=== PATIENT | female | born 1995 | race Caucasian/White ===

== ENCOUNTER 2023-02-09 09:37 | Outpatient (OUT) | payer OTHER, SELFPAY ==
[2023-02-09 11:34] LABS: Basophils Percent Auto 0.4 % (0.2-2.0); Eosinophils Percent Auto 0.4 % (0.9-7.0); Hemoglobin 11.4 g/dL (12.0-16.0); Immature Granulocytes Abs Auto 0.06 10^3/uL (0.00-0.03); Immature Granulocytes Pct Auto 0.6 % (0.0-0.5); Lymphocytes Absolute Auto 1.9 10^3/uL (1.2-3.8); Lymphocytes Percent Auto 18.9 % (20.5-60.0); Mean Corpuscular HGB Conc 33.5 g/dL (29.9-35.2); Mean Corpuscular Hemoglobin 31.2 pg (26.7-34.0); Mean Corpuscular Volume 93.2 fL (81.0-99.0); Mean Platelet Volume 11.2 fL (9.5-13.5); Monocytes Absolute Auto 0.4 10^3/uL (0.3-0.8); Monocytes Percent Auto 4.4 % (1.7-12.0); Neutrophils Absolute Auto 7.6 10^3/uL (1.4-6.5); Neutrophils Percent Auto 75.3 % (43.0-75.0); Platelet Count 243 10^3/uL (150-450); Red Blood Count 3.65 10^6/uL (4.20-5.40); Red Cell Distribution Width 12.8 % (11.0-15.0); White Blood Count 10.1 10^3/uL (4.0-11.0)
[2023-02-09 12:06] LABS: Glucose 1 Hour 127 mg/dL
[2023-02-09 12:25] LABS: Thyroid Stimulating Hormone 1.059 uIU/mL (0.358-3.740)
[2023-02-09 13:12] LABS: Estimated Average Glucose 88 mg/dL; Glycohemoglobin A1C 4.7 % (4.5-6.2)
[2023-02-10 05:12] LABS: HCV Ab Non Reactive (Non Reactive); HIV Ab/p24 Ag Screen Non Reactive (Non Reactive); Rubella Antibodies, IgG 2.06 index (Immune >0.99)
[2023-02-10 06:14] LABS: HBsAg Screen Negative (Negative)
[2023-02-10 11:23] LABS: Rapid Plasma Reagin, Quant Non Reactive (NonRea<1:1)
== END 2023-02-09 09:38 | disposition home or self-care (01) ==
LOC: LAB 09:43
PROVIDERS: Visit Provider Obstetrics & Gynecology
DX: Z34.92 Encounter for supervision of normal pregnancy, unspecified, second trimester (principal)
CPT/HCPCS: 36415; 82950; 83036; 84443; 85025; 86592; 86706; 86762; 86803; 86850; 86900; 86901; 87086; 87150; 87389

== ENCOUNTER 2023-02-18 11:33 | Outpatient (OUT) | payer OTHER, SELFPAY ==
--- NOTE | 2023-02-18 11:40 | US_ITS ---
[address] [address] Patient Name: CARINA CANALES MRN: [id number] date: 1995 Sex: F Assigned Patient Location: US Current Patient Location: Accession/Order Number: [id number] Exam Date: 02/18/2023 11:50 Report Date: 02/18/2023 19:16 At the request of: DEJAN LARSON Procedure: US OB anatomy EXAMINATION: US OB anatomy HISTORY: Second trimester COMPARISON: No relevant comparison available. TECHNIQUE: Transabdominal sonographic examination was performed for obstetrical and evaluation. FINDINGS: Number: 1 Heart Rate: 143.6 bpm H.B. /min Amniotic Fluid Volume: Subjectively normal Placental Location: ANTERIOR with lower margin 9.4 cm from os. Cervix Length: 3.1 cm; closed. ANATOMY: Normal Structures -cerebellum, choroid plexus, cisterna magna, lateral cerebral ventricles, orbits, midline falx, hard palate, four-chamber heart, RVOT, LVOT, stomach, kidneys, bladder, umbilical cord insertion into abdomen, three-vessel cord, cervical spine, thoracic spine, lumbar spine, sacral spine, right upper extremity, left upper extremity, right lower extremity, left lower extremity. SUBOPTIMALLY SEEN: Spine ABNORMALITIES: None BIOMETRY: BPD: 7.4 cm 29 weeks 6 days HC: 27.0 cm 29 weeks 4 days AC: 24.9 cm 29 weeks 1 days FL: 5.2 cm 27 weeks 4 days EFW:1268.7 grams; 53% FL/AC: 20.8 FL/BPD: 69.7 HC/AC: 1.1 GESTATIONAL AGE: Age by EDC: 28 weeks 2 days QUIQUE by EDC: 05/11/2023 Age by current US: 29 weeks 0 days QUIQUE by current US: 05/06/2023 US/US OB anatomy IMPRESSION: 1. Single live intrauterine with growth detailed above. 2. Slightly limited evaluation of the spine due to position. No appreciable abnormality. Electronically authenticated by: SHREYA CHILDS Date: 02/18/2023 19:16
--- NOTE | 2023-02-18 13:48 | PC.NURSE ---
1205 Called to US room with patient c/o feeling dizzy, clammy, and lightheaded. Pt states that when she arrived she was not feeling this way but it started with the beginning of the ultrasound and laying on her back in semi fowlers position. BP 82/56. Encouraged pt to turn on her side and HOB is lowered flat. 1211 Pt states that she is feeling better in this position. BP 100/58. Pt states that this is more like her normal BP. Pt denies being dehydrated in any way or vomiting. End SGardocky to continue with US in this position and contact me at the end of the us. 1241 Pt sitting on side of bed. Denies feeling lightheaded or dizzy. BP 103/67. Told pt that I will contact Dr Voss's ofc and make them aware. Instructed pt that if she feels dizzy to lay down with head flat or below her body and this should help with the hypotension. Enc her to follow up with Dr Voss for any furthur instructions. 1311 Called office and spoke with Mary about the above situation.
== END 2023-02-18 11:34 | disposition home or self-care (01) ==
LOC: US 11:33
PROVIDERS: Visit Provider Obstetrics & Gynecology
DX: Z34.92 Encounter for supervision of normal pregnancy, unspecified, second trimester (principal)
CPT/HCPCS: 76805

== ENCOUNTER 2023-03-19 15:02 | Outpatient (OUT) | payer OTHER, SELFPAY ==
--- NOTE | 2023-03-19 15:19 | US_ITS ---
[address] [address] Patient Name: CARINA CANALES MRN: [id number] date: 1995 Sex: F Assigned Patient Location: US Current Patient Location: Accession/Order Number: [id number] Exam Date: 03/19/2023 15:25 Report Date: 03/20/2023 09:08 At the request of: DEJAN LARSON Procedure: US OB incomplete anatomy EXAM: US OB incomplete anatomy HISTORY: ENCOUNTER FOLLOW UP ANATOMY Z36.2 COMPARISON: 02/18/2023 TECHNIQUE: Transabdominal images FINDINGS: position: Cephalic presentation, longitudinal lie Heart rate: 141 bpm Normal anatomy: Normal observed spine Clinical age: 32 weeks 3 days Clinical QUIQUE: 05/11/2023 US/US OB incomplete anatomy IMPRESSION: Normal spine Electronically authenticated by: SRINIVASAN WAHL Date: 03/20/2023 09:08
== END 2023-03-19 15:03 | disposition home or self-care (01) ==
PROVIDERS: Visit Provider Obstetrics & Gynecology
DX: Z36.2 Encounter for other antenatal screening follow-up (principal)
CPT/HCPCS: 76815

== ENCOUNTER 2023-04-10 14:08 | Outpatient (OUT) | payer OTHER, SELFPAY ==
--- NOTE | 2023-04-10 14:12 | US_ITS ---
The [address] [address] Patient Name: CARINA CANALES MRN: [id number] date: 1995 Sex: F Assigned Patient Location: US Current Patient Location: Accession/Order Number: [id number] Exam Date: 04/10/2023 14:15 Report Date: 04/11/2023 02:03 At the request of: DEJAN LARSON Procedure: US OB growth EXAM: US OB growth HISTORY: size inconsistent with dates O26.849 EXAMINATION: US OB growth HISTORY: size inconsistent with dates O26.849 COMPARISON: Ultrasound OB anatomy 02/18/2023 FINDINGS: Heart Rate: 127.4 bpm Number: 1.0 Position: CEPHALIC Amniotic Fluid Volume: 14.4 cm Maximum Vertical Pocket: 3.9 cm BIOMETRY: BPD: 9.0 cm cm; 36 weeks 2 days HC: 31.6 cmcm; 35 weeks 4 days AC: 31.4 cm cm; 35 weeks 2 days FL: 6.9 cm cm; 35 weeks 2 days EFW: 2676.3 grams; 45% FL/AC: 21.9 FL/BPD: 76.7 HC/AC: 1.0 GESTATIONAL AGE: Age by EDC: 35 weeks 4 days QUIQUE by EDC: 05/11/2023 Age by US: 35 weeks 4 days QUIQUE by US: 05/11/2023 US/US OB growth IMPRESSION: 1. Single live intrauterine with growth detailed above. COMPARISON: None. TECHNIQUE: FINDINGS: IMPRESSION: Electronically authenticated by: SHREYA CHILDS Date: 04/11/2023 02:03
== END 2023-04-10 14:09 | disposition home or self-care (01) ==
LOC: US 14:08
PROVIDERS: Visit Provider Obstetrics & Gynecology
DX: O26.843 Uterine size-date discrepancy, third trimester (principal); Z3A.35 35 weeks gestation of pregnancy
CPT/HCPCS: 76816

== ENCOUNTER 2023-04-19 22:18 | Outpatient (REF) | payer OTHER, SELFPAY | END 2023-04-19 22:19 | disposition home or self-care (01) | LOC: LAB 22:18 | PROVIDERS: Visit Provider Physician Assistant | DX: Z34.93 Encounter for supervision of normal pregnancy, unspecified, third trimester (principal) | CPT/HCPCS: 87081; 87150 ==

== ENCOUNTER 2023-05-03 11:30 | Outpatient (OUT) | payer OTHER, SELFPAY ==
--- NOTE | 2023-05-03 | US_ITS ---
[address] [address] Patient Name: CARINA CANALES MRN: [id number] date: 1995 Sex: F Assigned Patient Location: [facility] Current Patient Location: Accession/Order Number: [id number] Exam Date: 05/03/2023 11:30 Report Date: 05/03/2023 16:35 At the request of: DEJAN LARSON Procedure: US OB BPP w non-stress EXAMINATION: US OB BPP w non-stress HISTORY: DECREASED MOVEMENTS COMPARISON: No relevant comparison available. TECHNIQUE: Ultrasound biophysical profile was performed in the radiology department. FINDINGS: BREATHING MOVEMENTS: 2.0 GROSS BODY MOVEMENTS: 2.0 TONE: 2.0 QUALITATIVE AMNIOTIC FLUID VOLUME: 2.0 PRESENTATION: CEPHALIC HEART RATE: 137.8 bpm H.B./min AMNIOTIC FLUID VOLUME: 12.6 cm cm GESTATIONAL AGE: 38 weeks 6 days CONCLUSION: Total biophysical profile score: 8.0 Electronically authenticated by: SRINIVASAN WAHL Date: 05/03/2023 16:35
[2023-05-03 11:58] VITALS: BP 121/71; PULSE 80
== END 2023-05-03 12:31 | disposition home or self-care (01) ==
LOC: FBCO 11:32 → FBC 11:32
PROVIDERS: PCP Family Medicine; Visit Provider Obstetrics & Gynecology
DX: O36.8130 Decreased fetal movements, third trimester, not applicable or unspecified (principal); Z3A.38 38 weeks gestation of pregnancy
CPT/HCPCS: 76818

== ENCOUNTER 2023-05-16 18:04 | Inpatient (IN) | payer OTHER, SELFPAY ==
[2023-05-16] VITALS (31 sets, daily range): BP systolic 91–139; BP diastolic 55–84; PULSE 76–111; RESP 18; TEMP 36.2–36.7
[2023-05-16] MEDS: 0.9 % SODIUM CHLORIDE 1,000 ML 125 ML IV ×2 (19:10→22:00)
[2023-05-16] MEDS: AMPICILLIN SODIUM 2,000 MG in 0.9 % SODIUM CHLORIDE 100 ML 200 MG IV (19:11)
[2023-05-16 19:12] LABS: Hematocrit 35.7 % (36.0-48.0); Hemoglobin 11.6 g/dL (12.0-16.0); Mean Corpuscular HGB Conc 32.5 g/dL (29.9-35.2); Mean Corpuscular Hemoglobin 27.4 pg (26.7-34.0); Mean Corpuscular Volume 84.2 fL (81.0-99.0); Mean Platelet Volume 12.7 fL (9.5-13.5); Platelet Count 311 10^3/uL (150-450); Red Blood Count 4.24 10^6/uL (4.20-5.40); Red Cell Distribution Width 15.9 % (11.0-15.0); White Blood Count 17.4 10^3/uL (4.0-11.0)
[2023-05-16 19:23] LABS: Amphetamine Screen Urine NEGATIVE (NEGATIVE); Barbiturates Screen Urine NEGATIVE (NEGATIVE); Benzodiazepines Screen Urine NEGATIVE (NEGATIVE); Buprenorphine Screen Urine NEGATIVE (NEGATIVE); Cannabinoid Screen Urine NEGATIVE (NEGATIVE); Cocaine Screen Urine NEGATIVE (NEGATIVE); Methadone Screen Urine NEGATIVE (NEGATIVE); Methamphetamines Screen Urine NEGATIVE (NEGATIVE); Opiate Screen Urine NEGATIVE (NEGATIVE); Oxycodone Screen Urine NEGATIVE (NEGATIVE); Phencyclidine Screen Urine NEGATIVE (NEGATIVE); Tricyclic Antidepressant Urine NEGATIVE (NEGATIVE)
[2023-05-16] MEDS: ROPIVACAINE HCL/PF 400 MG/200 ML PREMIX 6 MG EPIDURAL (22:00)
[2023-05-16] MEDS: LIDOCAINE HCL 2% PF 100 MG/5 ML VIAL INJ (22:12)
[2023-05-16] MEDS: FENTANYL CITRATE/PF 100 MCG/2 ML VIAL EPIDURAL ×2 (22:13→22:14)
[2023-05-16] MEDS: AMPICILLIN SODIUM 1,000 MG in 0.9 % SODIUM CHLORIDE 50 ML 100 MG IV (23:34)
[2023-05-17] VITALS (37 sets, daily range): BP systolic 101–142; BP diastolic 54–83; PULSE 82–104; RESP 20; TEMP 36.9
[2023-05-17] MEDS: AMPICILLIN SODIUM 1,000 MG in 0.9 % SODIUM CHLORIDE 50 ML 100 MG IV (03:51)
[2023-05-17] MEDS: 0.9 % SODIUM CHLORIDE 1,000 ML 125 ML IV (04:35)
--- NOTE | 2023-05-17 06:20 | PM.OBPRCVD ---
Procedure Intrapartal events: None Induction method: none Delivery augmentation: rupture of membranes Delivery monitor: external FHT and external uterine Route of delivery: Laceration description: perineal - 1st degree Delivery repair: Vicryl Estimated blood loss (mL): 350 Anesthesia type: unsure-possibly epidural Disposition: floor Delivery date: 05/17/23 Gender: male presentation: vertex Placental delivery description: Spontaneous cord description: 3 Vessels
[2023-05-17] MEDS: IBUPROFEN 600 MG TABLET PO ×2 (08:53→15:52)
--- NOTE | 2023-05-17 10:58 | PC.NURSE ---
0900 Epidural catheter removed without incident, black tip intact. Patient tolerated well
--- NOTE | 2023-05-17 15:07 | PC.NURSE ---
LC into room, pt states feeding is going well He latches well and nurses for 15 -20 min , does nurse both breasts usually. Explained process of milk coming in over next 4 days, trusting the process and frequent feeding is castillo to milk process. Verbalized understanding. Family in room and very supportive. No further questions at this time.
[2023-05-18 00:05] VITALS: BP 100/57; PULSE 98
[2023-05-18 00:08] VITALS: TEMP 36.4
[2023-05-18] MEDS: IBUPROFEN 600 MG TABLET PO ×3 (00:18→20:08)
[2023-05-18 05:53] LABS: Basophils Absolute Auto 0.1 10^3/uL (0.0-0.1); Basophils Percent Auto 0.5 % (0.2-2.0); Eosinophils Absolute Auto 0.1 10^3/uL (0.0-0.7); Eosinophils Percent Auto 0.3 % (0.9-7.0); Hematocrit 27.7 % (36.0-48.0); Hemoglobin 8.7 g/dL (12.0-16.0); Immature Granulocytes Abs Auto 0.18 10^3/uL (0.00-0.03); Immature Granulocytes Pct Auto 1.2 % (0.0-0.5); Lymphocytes Absolute Auto 3.5 10^3/uL (1.2-3.8); Lymphocytes Percent Auto 22.6 % (20.5-60.0); Mean Corpuscular HGB Conc 31.4 g/dL (29.9-35.2); Mean Corpuscular Hemoglobin 26.9 pg (26.7-34.0); Mean Corpuscular Volume 85.8 fL (81.0-99.0); Mean Platelet Volume 11.9 fL (9.5-13.5); Monocytes Absolute Auto 1.4 10^3/uL (0.3-0.8); Neutrophils Absolute Auto 10.2 10^3/uL (1.4-6.5); Neutrophils Percent Auto 66.4 % (43.0-75.0); Platelet Count 246 10^3/uL (150-450); Red Blood Count 3.23 10^6/uL (4.20-5.40); Red Cell Distribution Width 16.2 % (11.0-15.0); White Blood Count 15.4 10^3/uL (4.0-11.0)
--- NOTE | 2023-05-18 08:43 | P.OBPN_ITS ---
OB - PN: Subj Subjective Patient comments: no complaints and pain well controlled [place] status: doing well Exam Constitutional Vital Signs, click to edit/add: Last Vital Signs Temp 97.6 F 05/18/23 00:08 Pulse 98 H 05/18/23 00:05 Resp 20 05/17/23 16:12 BP 100/57 05/18/23 00:05 Documenting provider has reviewed patient's vital signs: yes Common normals: no apparent distress Respiratory Common normals: normal respiratory effort and clear to auscultation bilaterally Cardio Common normals: regular rate and regular rhythm GI Common normals: Normal to inspection, nondistended, normoactive bowel sounds present Extremity Common normals: no clubbing, cyanosis or edema Results Labs Labs: Short CBC 05/18/23 Range/Units 05:39 WBC 15.4 H (4.0-11.0) 10^3/uL Hgb 8.7 L (12.0-16.0) g/dL Hct 27.7 L (36.0-48.0) % Plt Count 246 (150-450) 10^3/uL OB - PN: A/P Plan - Vaginal Delivery day: 1 Plan: routine care Time Spent with Patient Time: Total time spent is greater than 50% in coordination of care (as documented) at patient's floor/unit and/or counseling patient: Total time spent with greater than 50% in coordination of care (as documented) at patient's floor/unit and/or counseling patient: less than 15 minutes
[2023-05-18 09:43] VITALS: BP 108/60; PULSE 82; RESP 16; TEMP 36.4
[2023-05-18] MEDS: DOCUSATE SODIUM 100 MG CAPSULE PO (09:44)
[2023-05-18 18:52] VITALS: BP 113/57; PULSE 78; RESP 16; TEMP 36.3
[2023-05-19 00:24] VITALS: BP 117/69; PULSE 92
[2023-05-19 00:25] VITALS: BP 117/69; PULSE 92; RESP 16; TEMP 36.6
--- NOTE | 2023-05-19 01:09 | PC.NURSE ---
Pt pumps for 10 minutes. A couple drops is given to .
[2023-05-19] MEDS: IBUPROFEN 600 MG TABLET PO ×2 (04:17→09:25)
[2023-05-19 07:55] VITALS: BP 118/61; PULSE 75
[2023-05-19] MEDS: DOCUSATE SODIUM 100 MG CAPSULE PO (07:59)
--- NOTE | 2023-05-19 08:07 | P.OBPN_ITS ---
OB - PN: Subj Subjective Patient comments: no complaints and pain well controlled [place] status: doing well Exam Constitutional Vital Signs, click to edit/add: Last Vital Signs Temp 97.8 F 05/19/23 00:25 Pulse 75 05/19/23 07:55 Resp 16 05/19/23 00:25 BP 118/61 05/19/23 07:55 O2 Del Method Room Air 05/19/23 00:25 Documenting provider has reviewed patient's vital signs: yes Common normals: no apparent distress Respiratory Common normals: normal respiratory effort and clear to auscultation bilaterally Cardio Common normals: regular rate and regular rhythm GI Common normals: Normal to inspection, nondistended, normoactive bowel sounds present Extremity Common normals: no calf tenderness OB - PN: A/P Plan - Vaginal Delivery day: 2 Plan: routine care, discharge home and follow up 6 weeks Time Spent with Patient Time: Total time spent is greater than 50% in coordination of care (as documented) at patient's floor/unit and/or counseling patient: Total time spent with greater than 50% in coordination of care (as documented) at patient's floor/unit and/or counseling patient: less than 15 minutes
--- NOTE | 2023-05-19 12:35 | PC.NURSE ---
1010: Mother tearful upon RN entering room as baby is crying and she is positioning baby to feed again, she states All I've done is feed him and I don't think he is satisfied because all he does is cry-how am I supposed this at home? Patient reassured and offered a plan as baby weight os 9.7% down. Discussed formula syringe fed supplement while baby at breast- baby nursing vigorously and RN does syringe supplement at breast and explains to parents the process. Baby nurses other breast and falls asleep. Discussed anxiety history and depression- r/t depression and s/s of depression and to notify OB physician if symptoms appear. Patient smiling and happy that baby is resting contently after feeding. F/U with scheduled for tomorrow after peds appointment- instructed to call with questions/reassurance- verbalized understanding.
== END 2023-05-19 11:45 | disposition home or self-care (01) | DRG 807 ==
PROVIDERS: Admitting Provider Obstetrics & Gynecology; PCP Family Medicine; Visit Provider Obstetrics & Gynecology
DX: O48.0 Post-term pregnancy (principal); Z37.0 Single live birth; O99.824 Streptococcus B carrier state complicating childbirth; O70.0 First degree perineal laceration during delivery; Z3A.40 40 weeks gestation of pregnancy; Z90.49 Acquired absence of other specified parts of digestive tract; Z82.49 Family history of ischemic heart disease and other diseases of the circulatory system; Z80.9 Family history of malignant neoplasm, unspecified; Z83.49 Family history of other endocrine, nutritional and metabolic diseases
CPT/HCPCS: 36415; 59050; 59410; 80307; 85025; 85027; 86850; 86900; 86901; 96365; 96366; 96375; 96376

== ENCOUNTER 2023-05-20 08:10 | Outpatient (OUT) | payer OTHER, SELFPAY ==
--- NOTE | 2023-05-20 14:24 | PC.NURSE ---
Family arrive with 3 day old son Austin for follow up visit. Mom voices concern over and having enough milk. States milk not in yet, I have no idea how much he is eating, and I really don't want to have to go to formula Discussed thoughts and fears of , education on process of milk production. Breasts full shape, intact nipples, warm to touch no redness or trauma noted. Baby is latching well. Mom has fear of not making any milk No history to support inability to make milk. Discussed with parents I&O for . Neither can identify when had a wet diaper last, one smear of dark green stool yesterday evening when home from hospital. States baby comes to breast every 2 hours and does nurse at both breasts. Baby did have 2 stretches of sleep of 3 hours between feeds. Mom has history of anxiety and depression not treated with meds per her choice. Reviewed loss of 12.4%of weight and I&O for baby. encourages use of supplements for baby until supply comes in and could be short term help for infant weight. Father immediately states Yes, lets do this Mom begins to cry, states I don't want him to have formula hugs mom and offers support and short term use of formula will assist baby. Mom does not want to pump as baby already at the breast every 2 hours Finally willing to supplement with formula while baby at the breast. Prefers to use syringe at the breast only, no tube or bridge feeder (shield and supplement feeder). Does not want to confuse from latching at the breast. supports mom. Instructed to give 20 ml total with each feeding, consider more if frantic and continues to give hunger cues. Parents voice understanding. Plan to return 05/24/2023 for further support. Has number to stay in contact with for questions or concerns. Family leaves ambulatory for office visit with Dr Garcia. Nurse at Dr Garcia's office notified of LC findings and assessment of feeding. Shared feeding plan and when will return for further care. Will inform Dr Garcia of same. Initialized on 05/20/23 14:05 - END OF NOTE
[2023-05-20 14:25] VITALS: BP 114/72; PULSE 100; RESP 18; TEMP 36.3; O2SAT 97
== END 2023-05-20 13:15 | disposition home or self-care (01) ==
LOC: FBCO 08:12
PROVIDERS: PCP Family Medicine; Visit Provider Obstetrics & Gynecology
DX: Z39.2 Encounter for routine postpartum follow-up (principal)

== ENCOUNTER 2024-06-25 14:26 | Outpatient (OUT) | payer OTHER, SELFPAY ==
--- NOTE | 2024-06-25 | XR_ITS ---
The [address] [address] Patient Name: CARINA CANALES MRN: [id number] date: 1995 Sex: F Assigned Patient Location: [facility] Current Patient Location: Accession/Order Number: [id number] Exam Date: 06/25/2024 14:40 Report Date: 06/26/2024 04:51 At the request of: TOÑO CHILDS Procedure: XR wrist SARAHY min 2v EXAMINATION: XR wrist SARAHY min 2v HISTORY: Lump of wrist R22.30 ; tender lump on wrist bilaterally. COMPARISON: No relevant comparison available. FINDINGS: RIGHT FINDINGS: BONES: No significant arthropathy or acute abnormality. Skin surface marker projects over lateral wrist/scaphoid bone. SOFT TISSUES: No visible soft tissue swelling. OTHER: Negative. LEFT FINDINGS: BONES: No significant arthropathy or acute abnormality. Skin surface marker projects over lateral wrist/scaphoid bone. SOFT TISSUES: No visible soft tissue swelling. OTHER: Negative. XR/XR wrist SARAHY min 2v IMPRESSION: RIGHT CONCLUSION: No appreciable bone or soft tissue abnormality. LEFT CONCLUSION: No appreciable bone or soft tissue abnormality. Electronically authenticated by: SHREYA CHILDS Date: 06/26/2024 04:51
== END 2024-06-25 14:27 | disposition home or self-care (01) ==
LOC: RAD 14:27
PROVIDERS: PCP Family Medicine; Visit Provider Family Medicine
DX: R22.30 Localized swelling, mass and lump, unspecified upper limb (principal)
CPT/HCPCS: 73100

== ENCOUNTER 2024-08-12 04:26 | Emergency (ER) | payer OTHER, SELFPAY ==
[2024-08-12 04:29] VITALS: BP 116/76; PULSE 81; TEMP 36.4; O2SAT 97; BMI 24.9
--- OUTSIDE RECORDS SUMMARY | 2024-08-12 04:45 | XMS_ITS | CCD ---
Author Organization [facility] Care Team Providers Care Scale Operator Name Role Phone NONE, XXXX Unavailable Unavailable Hajdari, Astrit H Unavailable Unavailable Hajdari, Astrit H Unavailable Unavailable NONE, XXXX Unavailable Unavailable Samira, Mirza Unavailable Unavailable Samira, Mirza Unavailable Unavailable Kovesdi, Mirza Unavailable Unavailable NONE, XXXX Unavailable Unavailable Juan, Shanna Unavailable Unavailable NONE, XXXX Unavailable Unavailable Kovesjustine, Mirza Unavailable Unavailable NONE, XXXX Unavailable Unavailable ROCCO WEBBER Admitting Unavailable ROCCO WEBBER Attending Unavailable CLARENCE LIVINGSTON Referring Unavailable ROCCO WEBBER Consulting Unavailable DO Juan Cerna Primary Care Provider [phone] DO Juan Cerna Attending Provider NEETU SALAZAR Attending Unavailable HAWA Swartz Emergency Provider [phone] MD Gregorio Garcia Primary Care Provider Juan Swartz Admitting Unavailable Gregorio Garcia Primary Care Unavailable Juan Swartz Attending Unavailable Allergies Allergy Classification Reported Allergen(s) Allergy Type Date of Onset Reaction(s) Facility (1 source) Bee/Wasp/Ant venom; Translations: [Bee Stings] Propensity to adverse reactions (disorder) [facility] Repository (1 source) bee venom protein (honey bee) Drug allergy (disorder) [facility] Repository Medications Current Medications Medication Drug Class(es) Dates Sig (Normalized) Sig (Original) [place] (No Known Home Meds) (1 source) Start: 10-17-2023 [place] (No Known Home Meds) Active October 17, 2023 12:00am penicillin v potassium 500 mg oral tablet (1 source) Start: 10-17-2023 take 500 mg by mouth twice daily Penicillin V Potassium Active 500 MG PO Twice daily October 17, 2023 12:00am Problems Problem Classification Problem Date Documented Date Episodic/Chronic Fever of unknown origin (1 source) Fever, unspecified; Translations: [Fever, unspecified] Onset: 10-17-2023 Episodic Immunizations and screening for infectious disease (4 sources) Contact with and (suspected) exposure to other viral communicable diseases; Translations: [CONTCT EXPS OTH VIRL COMMUNICABL DZ] Onset: 02-26-2020 Episodic Other upper respiratory infections (2 sources) Streptococcal sore throat; Translations: [Streptococcal pharyngitis] Onset: 10-17-2023 10-17-2023 Episodic Residual codes; unclassified (1 source) Pain, unspecified; Translations: [Pain, unspecified] Onset: 10-17-2023 Episodic Results Test Name Value Interpretation Reference Range Facility COVID-19 / Flu A/B / RSV PCR on 10-17-2023 SARS-CoV-2 (COVID-19) RNA MOR+probe Ql (Unsp spec) COVID-19 Cepheid Result Negative for SARS-CoV-2 RNA by RT-PCR Flu A Cepheid Result Negative for Flu A RNA by RT-PCR Flu B Cepheid Result Negative for Flu B RNA by RT-PCR RSV Cepheid Result Negative for RSV RNA by RT-PCR COVID19 Blank Space Reference: Negative COVID19 Blank Space Cepheid Disclaimer The CepDirectworksid Xpert Xpress CoV-2/Flu/RSV Plus has CepDirectworksid Disclaimer not been FDA cleared or approved; this test has Cepheid Disclaimer been authorized by FDA under an EUA for use by Cepheid Disclaimer authorized laboratories; this test has been Cepheid Disclaimer authorized only for the simultaneous qualitative Cepheid Disclaimer detection and differentiation of nucleic acids from Cepheid Disclaimer SARS-CoV-2, influenza A, influenza B, and Cepheid Disclaimer respiratory syncytial virus (RSV), and not for any Cepheid Disclaimer other viruses or pathogens; and this test is only Cepheid Disclaimer authorized for the duration of the declaration that Cepheid Disclaimer circumstances exist justifying the authorization of Cepheid Disclaimer emergency use of in vitro diagnostic tests for Cepheid Disclaimer detection and/or diagnosis of COVID-19 under Cepheid Disclaimer Section 564(b)(1) of the Act, 21 U.S.C. 360bbb- Cepheid Disclaimer 3(b)(1), unless the authorization is terminated or Cepheid Disclaimer revoked sooner. PERFORMED BY: [place] [address] PATHOLOGIST RAILROAD SIGNAL TECHNICIAN ELADIO POWELL M.D. Normal [facility] Comment on above: Performed By: #### C EPHEID NEG, COVID19 FLU RSV, QS #### [address] Cepheid COVID PCR Negativeon 10-17-2023 SARS-CoV-2 (COVID-19) RNA MOR+probe Ql (Unsp spec) Negative Normal Negative [facility] Comment on above: Result Comment: This is a duplicate CepDirectworksid Xpert Xpress CoV-2/Flu/RSV Plus RNA by RT-PCR result to be used for statistical tracking purpose only. PERFORMED BY: [place] [address] PATHOLOGIST RAILROAD SIGNAL TECHNICIAN ELADIO POWELL M.D. Performed By: #### C EPHEID NEG, COVID19 FLU RSV, QS #### [place] [id number] [facility] Quick Strepon 10-17-2023 S. pyogenes Ag IA Ql (Unsp spec) Streptococcus pyogenes Ag [Presence] in Throat by Rapid immunoassay Positive for Group A Strep Antigen Reference range = Negative PERFORMED BY: [address] [place] [address] PATHOLOGIST RAILROAD SIGNAL TECHNICIAN ELADIO POWELL M.D. Normal [facility] Comment on above: Performed By: #### C EPHEID NEG, COVID19 FLU RSV, QS #### [address] Streptococcus pyogenes antig en detectionOrdered By: Juan Swartz on 10-17-2023 S. pyogenes Ag Ql (Unsp spec) [facility] Basophils Auto (Bld) [#/Vol] Ordered By: Juan Cerna on 05-06-2022 Basophils (Bld) [#/Vol] 0.0 10*3/uL 0.0-0.2 [facility] Basophils/100 WBC Auto (Bld) Ordered By: Juan Cerna on 05-06-2022 Basophils/100 WBC (Bld) 0.6 % . [facility] Body fluid albumin measureme nt (mass/volume)Ordered By: Juan Cerna on 05-06-2022 Albumin (Body fld) [Mass/Vol] 4.4 g/dL 3.2-5.5 [facility] Cholesterol [Mass/volume] in Serum or PlasmaOrdered By: Juan Cerna on 05-06-2022 Cholesterol [Mass/Vol] 191 mg/dL 140-200 [facility] Comment on above: Chol less than 200 m g/dl low riskChol 201-239 mg/dl borderline riskChol 240 mg/dl and greater high risk Cholesterol in LDL Calc [Mas s/Vol]Ordered By: Juan Cerna on 05-06-2022 Cholesterol in LDL [Mass/Vol] 103 mg/dL 0-100 [facility] Comment on above: LDL ATP III CLASSIFI CATIONLDL less than 100 mg/dL OptimalLDL 100-129 mg/dL Near or above optimalLDL 130-159 mg/dL Borderline highLDL 160-189 mg/dL HighLDL greater than 189 mg/dL Very high Cholesterol in VLDL Calc [Ma ss/Vol]Ordered By: Juan Cerna on 05-06-2022 Cholesterol in VLDL [Mass/Vol] 7 mg/dL [facility] Creatinine and Glomerular fi ltration rate.predicted panel (S/P/Bld)Ordered By: Juan Cerna on 05-06-2022 Creatinine [Mass/Vol] 0.63 mg/dL 0.44-1.03 [facility] Eosinophils Auto (Bld) [#/Vo l]Ordered By: Juan Cerna on 05-06-2022 Eosinophils (Bld) [#/Vol] 0.1 10*3/uL 0.0-0.45 [facility] Eosinophils/100 WBC Auto (Bl d)Ordered By: Juan Cerna on 05-06-2022 Eosinophils/100 WBC (Bld) 0.7 % . [facility] Erythrocyte distribution wid th Auto (RBC) [Ratio]Ordered By: Juan Cerna on 05-06-2022 Erythrocyte distribution width (RBC) [Ratio] 13.3 % 11.9-15.3 [facility] Estimated glomerular filtrat ion rate (GFR) non- AmericanOrdered By: Juan Cerna on 05-06-2022 GFR/1.73 sq M.predicted among non-blacks MDRD (S/P/Bld) [Vol rate/Area] > 60 mL/Min [facility] Globulin Calc (S) [Mass/Vol] Ordered By: Juan Cerna on 05-06-2022 Globulin (S) [Mass/Vol] 2.6 g/dL [facility] Hematocrit Auto (Bld) [Volum e fraction]Ordered By: Juan Cerna on 05-06-2022 Hematocrit (Bld) [Volume fraction] 42.9 % 34.0-46.4 [facility] Hemoglobin [Mass/volume] in BloodOrdered By: Juan Cerna on 05-06-2022 Hemoglobin (Bld) [Mass/Vol] 13.8 g/dL 11.8-15.4 [facility] Laboratory - Hematology and Cell countsOrdered By: Juan Cerna on 05-06-2022 Nucleated RBC/100 WBC (Bld) [Ratio] 0.1 % 0-0.5 [facility] Leukocytes [#/volume] in Blo od by Automated countOrdered By: Juan Cerna on 05-06-2022 WBC (Bld) [#/Vol] 7.6 10*3/uL 4.5-11.0 [facility] Lymphocytes Auto (Bld) [#/Vo l]Ordered By: Juan Cerna on 05-06-2022 Lymphocytes (Bld) [#/Vol] 2.6 10*3/uL 1.00-4.8 [facility] Lymphocytes/100 WBC Auto (Bl d)Ordered By: Juan Cerna on 05-06-2022 Lymphocytes/100 WBC (Bld) 34.7 % . [facility] MCH Auto (RBC) [Entitic mass ]Ordered By: Juan Cerna on 05-06-2022 MCH (RBC) [Entitic mass] 29.7 pg 24.7-34.3 [facility] MCHC Auto (RBC) [Mass/Vol]Or dered By: Juan Cerna on 05-06-2022 MCHC (RBC) [Mass/Vol] 32.2 g/dL 32.0-35.0 [facility] MCV Auto (RBC) [Entitic vol] Ordered By: Juan Cerna on 05-06-2022 MCV (RBC) [Entitic vol] 92.3 fL 80-100 [facility] Monocytes Auto (Bld) [#/Vol] Ordered By: Juan Cerna on 05-06-2022 Monocytes (Bld) [#/Vol] 0.5 10*3/uL 0.0-0.8 [facility] Monocytes/100 WBC Auto (Bld) Ordered By: Juan Cerna on 05-06-2022 Monocytes/100 WBC (Bld) 6.1 % . [facility] Neutrophils Auto (Bld) [#/Vo l]Ordered By: Juan Cerna on 05-06-2022 Neutrophils (Bld) [#/Vol] 4.4 10*3/uL 1.8-7.7 [facility] Neutrophils/100 WBC Auto (Bl d)Ordered By: Juan Cerna on 05-06-2022 Neutrophils/100 WBC (Bld) 57.9 % . [facility] No Panel InformationOrdered By: Juan Cerna on 05-06-2022 Estimated GFR () > 60 mL/Min [facility] Comment on above: GFR estimated refere nce range: According to KDOQI guidelines, <60 ml/min/1.73m2 is sufficient to diagnose a patient with chronic kidney disease. Pharmacy Creatinine Clearance (Chem N/A [facility] Platelet mean volume Auto (B ld) [Entitic vol]Ordered By: Juan Cerna on 05-06-2022 Platelet mean volume (Bld) [Entitic vol] 9.9 fL 6.3-10.7 [facility] Platelets Auto (Bld) [#/Vol] Ordered By: Juan Cerna on 05-06-2022 Platelets (Bld) [#/Vol] 253 10*3/uL 150-450 [facility] Protein [Mass/volume] in Ser um or PlasmaOrdered By: Juan Cerna on 05-06-2022 Protein [Mass/Vol] 7.0 g/dL 6.1-7.9 [facility] RBC Auto (Bld) [#/Vol]Ordere d By: Juan Cerna on 05-06-2022 RBC (Bld) [#/Vol] 4.65 10*6/uL 3.60-5.00 [facility] Serum or plasma alanine cochran otransferase measurement without P-5'-P (enzymatic activiOrdered By: Juan Cerna on 05-06-2022 ALT No additional P-5'-P [Catalytic activity/Vol] 14 U/L [facility] Serum or plasma albumin/glob ulin mass ratioOrdered By: Juan Cerna on 05-06-2022 Albumin/Globulin [Mass ratio] 1.7 {ratio} [facility] Serum or plasma alkaline jeremy sphatase measurement (enzymatic activity/volume)Ordered By: Juan Cerna on 05-06-2022 ALP [Catalytic activity/Vol] 42 U/L 32-92 [facility] Serum or plasma anion gap de terminationOrdered By: Juan Cerna on 05-06-2022 Anion gap [Moles/Vol] 13.3 mmol/L 6.0-15.0 [facility] Serum or plasma aspartate am inotransferase measurement (enzymatic activity/volume)Ordered By: Juan Cerna 05-06-2022 AST [Catalytic activity/Vol] 17 U/L [facility] Serum or plasma calcium crystal urement (mass/volume)Ordered By: Juan Cerna on 05-06-2022 Calcium [Mass/Vol] 9.9 mg/dL 8.2-10.2 [facility] Serum or plasma chloride jenna surement (moles/volume)Ordered By: Juan Cerna on 05-06-2022 Chloride [Moles/Vol] 100 mmol/L 95-114 [facility] Serum or plasma glucose crystal urement (mass/volume)Ordered By: Juan Cenra on 05-06-2022 Glucose [Mass/Vol] 81 mg/dL 70-100 [facility] Comment on above: ADA recommended refe rence rangeRandom Glucose Reference Range is dependent on time and content of last meal. Glucose of more than 200 mg/dL in a nonstressed, ambulatory subject supports the diagnosis of Diabetes Mellitus. Serum or plasma high density lipoprotein (HDL) cholesterol measurementOrdered By: Juan Cerna on 05-06-2022 Cholesterol in HDL [Mass/Vol] 80 mg/dL 35-85 [facility] Comment on above: HDL CHOL ATP-III CLA SSIFICATION Cardiovascular RiskHDL > or equal to 60 mg/dL LOWHDL < 40 mg/dL HIGH Serum or plasma potassium me asurement (moles/volume)Ordered By: Juan Cerna on 05-06-2022 Potassium [Moles/Vol] 3.6 mmol/L 3.5-5.1 [facility] Serum or plasma sodium measu rement (moles/volume)Ordered By: Juan Cerna on 05-06-2022 Sodium [Moles/Vol] 136 mmol/L 136-146 [facility] Serum or plasma total biliru bin measurement (mass/volume)Ordered By: Juan Cerna on 05-06-2022 Bilirubin [Mass/Vol] 0.9 mg/dL 0.3-1.2 [facility] Serum or plasma total carbon dioxide measurement (moles/volume)Ordered By: Juan Cerna on 05-06-2022 CO2 [Moles/Vol] 26.3 mmol/L 22.0-30.0 [facility] Serum or plasma total choles terol/high density lipoprotein (HDL) cholesterol mass ratOrdered By: Juan Cerna on 05-06-2022 Cholesterol.total/Cho lesterol in HDL [Mass ratio] 2.4 {ratio} <5.0 [facility] Serum or plasma urea nitroge n measurement (mass/volume)Ordered By: Juan Cerna on 05-06-2022 Urea nitrogen [Mass/Vol] 14 mg/dL 9-23 [facility] Triglyceride [Mass/volume] i n Serum or PlasmaOrdered By: Juan Cerna on 05-06-2022 Triglyceride [Mass/Vol] 39 mg/dL 35-149 [facility] Comment on above: TRIG ATP III CLASSIF ICATIONTRIG less than 150 mg/dL NormalTRIG 150-199 mg/dL Borderline highTRIG 200-500 mg/dL High TRIG greater than 500 mg/dL Very highStandard traceable to the Center for Disease Conrtrol and Prevention (CDC) test method. COVID-19 PCRon 02-27-2020 SARS-CoV-2, MOR Not Detected Normal Not Detected [facility] Comment on above: Result Comment: This test was developed and its performance characteristics determined by [employer]. This test has not been FDA cleared or approved. This test has been authorized by FDA under an Emergency Use Authorization (EUA). This test is only authorized for the duration of time the declaration that circumstances exist justifying the authorization of the emergency use of in vitro diagnostic tests for detection of SARS-CoV-2 virus and/or diagnosis of COVID-19 infection under section 564(b)(1) of the Act, 21 U.S.C. 360bbb-3(b)(1), unless the authorization is terminated or revoked sooner. When diagnostic testing is negative, the possibility of a false negative result should be considered in the context of a patient's recent exposures and the presence of clinical signs and symptoms consistent with COVID-19. An individual without symptoms of COVID-19 and who is not shedding SARS-CoV-2 virus would expect to have a negative (not detected) result in this assay. Performed By: #### C VDPCR #### [facility] [address] [address] Edie De La Paz Coding Summary.on 09-12-2017 Coding Summary. CODING DATE: 018 FINAL [facility] STATUS: Home (Routine DC) PAYOR: Self Pay APC DESCRIPTION 5025 Level 5 Type A ED Visits ADMIT DX: REASON FOR VISIT DX: R45.851 Suicidal ideations T39.1X2A Poisoning by 4-Aminophenol derivatives, intentional self-harm, initial encounter FINAL DX: PRINCIPAL: R45.851 Suicidal ideations SECONDARY: T39.1X2A Poisoning by 4-Aminophenol derivatives, intentional self-harm, initial encounter PYMT PROC APC STAT DESCRIPTION DOCTOR NAME DATE NOTE: The code number assigned matches the documented diagnosis and / or procedure in the patient's chart. However, the narrative phrase printed from the coding software may appear abbreviated, or result in slightly different terminology. Revised Coded By: Carley Treviño Revised Date Saved: 09/12/2017 10:53 am Normal [facility] Acetamnphn Lvlon 09-10-2017 Acetaminophen mass conc 14 microgram/mL Low 15-30 [facility] Comment on above: Performed By: #### 2 [id number], [id number], [id number] ####[facility] [id number] [place] [address] Auto Diffon 09-10-2017 Basophils Auto #/vol (Bld) 0.8 % Normal 0.0-2.0 [facility] Comment on above: Order Comment: Order Added by Discern Expert. Performed By: #### 2 [id number], [id number], [id number] ####[facility] [address] [place] [address] Basophils/Leukocytes Auto Pure number fraction (Bld) 0.1 E9/L Normal 0.0-0.2 [facility] Comment on above: Order Comment: Order Added by Discern Expert. Performed By: #### 2 [id number], [id number], [id number] ####[facility] [address] [place] [address] Eosinophils/100 WBC Auto (Bld) 0.2 % Normal 0.0-8.0 [facility] Comment on above: Order Comment: Order Added by Discern Expert. Performed By: #### 2 [id number], [id number], [id number] ####[place] [address] [place] [address] Eosinophils/Leukocyte s Auto Pure number fraction (Bld) 0.0 E9/L Normal 0.0-0.5 [facility] Comment on above: Order Comment: Order Added by Discern Expert. Performed By: #### 2 [id number], [id number], [id number] ####[address] [place] [address] Lymphocytes/100 WBC Auto (Bld) 29.7 % Normal 14.0-50.0 [facility] Comment on above: Order Comment: Order Added by Discern Expert. Performed By: #### 2 [id number], [id number], [id number] ####[address] [address] Lymphocytes/Leukocyte s Auto Pure number fraction (Bld) 2.0 E9/L Normal 1.0-4.0 [facility] Comment on above: Order Comment: Order Added by Discern Expert. Performed By: #### 2 [id number], [id number], [id number] ####[address] [place] [address] Monocytes/100 WBC Auto (Bld) 4.7 % Normal 4.0-14.0 [facility] Comment on above: Order Comment: Order Added by Discern Expert. Performed By: #### 2 [id number], [id number], [id number] ####[address] [address] Monocytes/Leukocytes Auto Pure number fraction (Bld) 0.3 E9/L Normal 0.2-1.0 [facility] Comment on above: Order Comment: Order Added by Discern Expert. Performed By: #### 2 [id number], [id number], 0160603 ####[place] [address] [place] [address] Neutrophils/100 WBC Auto (Bld) 64.6 % Normal 36.0-75.0 [facility] Comment on above: Order Comment: Order Added by Discern Expert. Performed By: #### 2 [id number], [id number], [id number] ####[facility] [address] [place] [address] Neutrophils/Leukocyte s Auto Pure number fraction (Bld) 4.4 E9/L Normal 2.0-7.5 [facility] Comment on above: Order Comment: Order Added by Discern Expert. Performed By: #### 2 [id number], [id number], [id number] ####[place] [address] [place] [address] B hCG Qualon 09-10-2017 Beta hCG Ql Negative Normal [facility] Comment on above: Performed By: #### 2 [id number], [id number], 0304603 ####[address] [address] BMPon 09-10-2017 Anion gap 3 molar conc 14 mmol/L Normal 6-16 [facility] Comment on above: Performed By: #### 2 [id number], [id number], 0467890 ####[address] [address] Calcium mass conc 9.3 mg/dL Normal 8.9-11.1 [facility] Comment on above: Performed By: #### 2 0546177, [id number], 3814688 ####[address] [address] Chloride molar conc 100 mmol/L Low 101-111 [facility] Comment on above: Performed By: #### 2 [id number], [id number], 8515655 ####[facility] [address] [place] [address] CO2 molar conc 23 mmol/L Normal 21-31 [facility] Comment on above: Performed By: #### 2 0416029, [id number], 8681104 ####[place] [address] [place] [address] Creatinine mass conc 0.8 mg/dL Normal 0.5-1.3 [facility] Comment on above: Performed By: #### 2 1306523, [id number], [id number] ####[facility] [address] [place] [address] Glucose mass conc 105 mg/dL Normal 55-199 [facility] Comment on above: Result Comment: If t his glucose result represents a fasting glucose, interpretation should refer to the following reference range: 55-99 mg/dL Performed By: #### 2 0366977, 71456103, [id number] ####[facility] [address] [place] [address] Potassium molar conc 2.9 mmol/L Low 3.5-5.3 [facility] Comment on above: Performed By: #### 2 [id number], [id number], [id number] ####[place] [address] Sodium molar conc 134 mmol/L Low 135-145 [facility] Comment on above: Performed By: #### 2 4397626, 40355526, 0572058 ####[place] [address] Urea nitrogen mass conc 11 mg/dL Normal 5-21 [facility] Comment on above: Performed By: #### 2 7920981, 73853410, 8323729 ####[place] [address] Urea nitrogen/Creatinine mass ratio 14 No Units Normal 10-20 [facility] Comment on above: Performed By: #### 2 [id number], 20176961, 0496803 ####[place] [address] CBC w/ Auto Diffon 8 Erythrocyte distribution width Auto Ratio (RBC) 13.7 % Normal 10.9-14.2 [facility] Comment on above: Performed By: #### 2 2650556, 41542762, 3119864 ####[address] [address] Hematocrit Auto Volume Fraction (Bld) 41.6 % Normal 34.0-46.0 [facility] Comment on above: Performed By: #### 2 2715781, 02459148, 3886077 ####[place] [address] Hemoglobin mass conc (Bld) 14.4 g/dL Normal 12.0-16.0 [facility] Comment on above: Performed By: #### 2 2196049, 27346873, 8320544 ####[place] [address] MCH Auto Entitic mass (RBC) 30.9 pg Normal 27.0-34.0 [facility] Comment on above: Performed By: #### 2 4459990, 52537966, 4470124 ####[place] [address] MCHC Auto mass conc (RBC) 34.5 g/dL Normal 31.4-39.3 [facility] Comment on above: Performed By: #### 2 8473423, 62942753, 1803678 ####[place] [address] MCV Auto Entitic volume (RBC) 89.5 fL Normal 80.0-100.0 [facility] Comment on above: Performed By: #### 2 7999972, 82214499, 4084355 ####[place] [address] Platelet mean volume Auto Entitic volume (Bld) 9.6 fL Normal 6.4-10.8 [facility] Comment on above: Performed By: #### 2 6044615, 20171371, 5385059 ####[place] [address] Platelets Auto #/vol (Bld) 291.0 E9/L Normal 150.0-500. 0 [facility] Comment on above: Performed By: #### 2 2590380, 47788765, 2954936 ####[place] [address] RBC Auto #/vol (Bld) 4.6 E12/L Normal 4.3-5.9 [facility] Comment on above: Performed By: #### 2 [id number], [id number], 1428788 ####[facility] [address] [place] [address] WBC corrected for nucl RBC Auto #/vol (Bld) 6.8 E9/L Normal 4.0-11.0 [facility] Comment on above: Performed By: #### 2 [id number], [id number], 3215335 ####[facility] [address] [place] [address] ED Clinical Summaryon 2017 ED Clinical Summary (Inserted Image. Mireya ble to display) [place] [id number] ED Clinical SummaryPerson Information Name: YVONNE GOODEN/Ivone Age: 22 Years : 1995 12:00 AM Sex: Female Language:Peruvian PCP: NONE, XXXX Marital Status:Single Visit Id: Visit Reason:General medical; Intentional drug overdose; TOOK TOO MUCH MEDICATION Speciality: Acuity: 2 Enc Type: Emergency Med Service: Emergency Arrival:09/10/2017 11:11 AM Discharge: 09/10/2017 3:46 PM LOS: 000 04:35 Checkin:09/10/2017 11:11 AM Checkout: 09/10/2017 3:46 PM Dispo Type: Home (Routine DC) EVENTS:Event Name Event Status Request Date/Time Start Date/Time Complete Date/Time Arrive Complete 09/10/2017 11:11 AM 09/10/2017 11:11 AM 09/10/2017 11:11 AM Document Home Meds Request 09/10/2017 11:11 AM Triage Complete 09/10/2017 11:11 AM 09/10/2017 11:20 AM 09/10/2017 11:20 AM No Visitors Request 09/10/2017 11:12 AM Bed Assign Complete 09/10/2017 11:18 AM 09/10/2017 11:18 AM 09/10/2017 11:[address] Exam Complete 09/10/2017 11:18 AM 09/10/2017 11:21 AM 09/10/2017 11:21 AM RN Exam Complete 09/10/2017 11:18 AM 09/10/2017 11:44 AM 09/10/2017 11:44 AM Isolation Screening Request 09/10/2017 11:20 AM Registration Complete 09/10/2017 11:21 AM 09/10/2017 12:25 PM 09/10/2017 12:25 PM EKG Complete 09/10/2017 11:23 AM 09/10/2017 11:41 AM Meds Admin Complete 09/10/2017 11:23 AM 09/10/2017 12:24 PM Pending Labs Complete 09/10/2017 11:23 AM 09/10/2017 12:37 PM Lab Complete 09/10/2017 11:23 AM 09/10/2017 12:03 PM Urine Collect Complete 09/10/2017 11:23 AM 09/10/2017 11:49 AM Patient Care Request 09/10/2017 11:23 AM RT Request 09/10/2017 11:23 AM Pending Labs Complete 09/10/2017 11:29 AM 09/10/2017 11:38 AM Lab Complete 09/10/2017 11:29 AM 09/10/2017 11:38 AM Urine Collect Complete 09/10/2017 11:29 AM 09/10/2017 11:38 AM Pending Labs Complete 09/10/2017 11:41 AM 09/10/2017 11:41 AM 09/10/2017 12:01 PM Lab Complete 09/10/2017 11:41 AM 09/10/2017 11:41 AM 09/10/2017 12:01 PM Pending Labs Complete 09/10/2017 11:46 AM 09/10/2017 11:46 AM 09/10/2017 11:47 AM Lab Complete 09/10/2017 11:46 AM 09/10/2017 11:46 AM 09/10/2017 11:47 AM Meds Admin Complete 09/10/2017 12:10 PM 09/10/2017 12:47 PM Reg Complete Request 09/10/2017 12:25 PM Reg Bed Request Complete 09/10/2017 12:25 PM 09/10/2017 12:25 PM 09/10/2017 12:25 PM Pending Labs Complete 09/10/2017 12:54 PM 09/10/2017 12:54 PM 09/10/2017 12:54 PM Discharge Complete 09/10/2017 3:41 PM 09/10/2017 3:46 PM 09/10/2017 3:46 PM Transfer Complete 09/10/2017 3:46 PM 09/10/2017 3:46 PM 09/10/2017 3:46 PM ADDRESS:[address] [place] [address] [address] [place] [address] PHYS DOC NOTES: Patient: YVONNE GOODEN Age: 22 years Sex: Female : 1995 Associated Diagnoses: None Author: Mirza Hogan DO Basic Information Time seen: Date & time 09/10/17 11:20:00. History source: Patient, Nursing notes, Nursing notes. Arrival mode: Private vehicle. History limitation: None. Additional information: Chief Complaint from Nursing Triage Note : Chief Complaint 09/10/2017 11:13 EST Chief Complaint pt states stress and thought of harming herself for a while. took 6 or 8 extra strenght tylenol at 0200. 4 episodes of vomiting today. pt is on med for depression. . History of Present Illness 22 female presented to the emergency department with suicidal ideation. The patient states that she was trying to kill herself last night she took 6 or 8 pills of Tylenol. The patient states that she is certain that these were Tylenol not aspirin not ibuprofen or any other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 drugs and other substances can be delayed.SEEK IMMEDIATE MEDICAL CARE IF:? You develop confusion, sleepiness, agitation, or difficulty walking.? You develop breathing problems, a cough, difficulty swallowing, or excess mucus.? You develop a stomach ache, repeated vomiting, or severe diarrhea.? You develop weakness, fever, or dehydration.Document Released: 08/12/2005 Document Revised: 09/26/2012 Document Reviewed: 08/05/2009ExitCare? Patient Information ?2015 [employer]. This information is not intended to replace advice given to you by your health care provider. Make sure you discuss any questions you have with your health care provider.Preventive MedicinePoisoning InformationPoisoning is illness caused by eating, drinking, touching, or inhaling a harmful substance. The damaging effects on the person's health will vary depending on the type of poison, the amount of exposure, and the duration of exposure before treatment. These effects may range from mild to very severe or even fatal. Most poisonings take place in the home and involve common household products. They can also occur in the workplace, especially in industrial or manufacturing facilities. Poisoning is more common in children than adults. However, poisoning often causes more serious illness in adults. Poisonings are often accidental, but there are also many cases in which a person intentionally ingests poison.WHAT THINGS MAY BE POISONOUS?A poison can be any substance that causes illness or harm to the body. Poisoning is often caused by products that are commonly found in homes. Many substances can become poisonous if used in ways or amounts that are not appropriate. Some common products that can cause poisoning are: ? Medicines, including prescription medicines, hgmk-gqa-meizalx pain medicines, vitamins, iron pills, and herbal supplements.? Cleaning or laundry products.? Colerain and paint thinner.? Holland or insect killers.? Perfume, hair spray, or nail products.? Alcohol.? Plants, such as philodendron, poinsettia, oleander, castor baker, cactus, and tomato plants.? Batteries.? Furniture malawian.? Drain intervention specialist.? Antifreeze or other automotive products.? Gasoline, banbury mixer operator fluid, or lamp oil.? Carbon monoxide gas from furnaces or automobiles.? Toxic fumes from the burning of plastics or certain other materials.WHAT ARE SOME FIRST-AID MEASURES FOR POISONING?The local poison control center must be contacted whenever a person may have been exposed to poison. The poison pressure controller will often give a set of directions to follow over the phone. These directions may include the following:? Remove any substance that is still in the mouth if the poison was not food or medicine. Drink a small amount of water. ? Keep the medicine container if too much medicine or the wrong medicine was swallowed. Use it to identify the medicine to the poison pressure controller.?? Get away from the area where exposure occurred as soon as possible if the poison was from fumes or chemicals.? Get fresh air as soon as possible if a poison was inhaled. ? Remove any affected clothing and rinse the skin with water if a poison got on the skin.?? Rinse the eyes with water if a poison or chemical got in the eyes. ? Begin cardiopulmonary resuscitation (CPR) if breathing stops. HOW CAN YOU PREVENT POISONING?Take these steps to help prevent poisoning:? Keep medicines and chemical products in their original containers. Many of these come in child-safe packaging. Store them in areas out of reach of children.? Educate others?about the dangers of possible poisons.? Read labels before using medicine or household products. Leave the original labels on the containers. ? Always turn on a light when taking medicine. Check the dosage every time. ?? Close the containers tightly after using medicine or chemical products. ? Get rid of unneeded and outdated medicines by following the specific disposal instructions on the medicine label or the patient information that came with the medicine. Do not put medicine in the trash or flush it down the toilet. Use the community's drug take-back program to dispose of medicine. If these options are not available, take the medicine out of the original container and mix it with an undesirable substance, such as coffee grounds or david litter. Seal the mixture in a sealable bag, can, or other container and throw it away.?? Keep all dangerous household products (such as banbury mixer operator fluid, paint thinner and remover, gasoline, and antifreeze) in locked cabinets. ? Do not mix different household chemicals with each other.? Use protective equipment (gloves, goggles, masks, aprons) as needed when using chemicals or intervention specialist.? Install a carbon monoxide detector in your home.WHEN SHOULD YOU SEEK HELP?Contact the poison control center whenever?you suspect that a person has been exposed to poison. Call (in the [place] to reach a poison center for your area. If you are outside the [place] ask your health care provider what the phone number is for your local poison control center. Keep the phone number posted near your phone. Make sure everyone in your household knows where to find the number.The local emergency services (932 in [place] must be contacted if a person has been exposed to poison and: ? Has trouble breathing or stops breathing.? Develops chest pain.? Has trouble staying awake or becomes unconscious.? Has a seizure.? Has severe vomiting or bleeding.? Has a worsening headache.? Has a decreased level of alertness.? Develops a widespread rash that may or may not be painful.? Has changes in vision. ? Has difficulty swallowing.? Develops severe abdominal pain.FOR MORE INFORMATIONAmerican Association of Poison Control Centers: www.aapcc.orgDocument Released: 06/21/2013 Document Revised: 11/19/2014 Document Reviewed: 06/21/2013ExitCare? Patient Information ?2014 [employer]. This information is not intended to replace advice given to you by your health care provider. Make sure you discuss any questions you have with your health care provider. Normal [facility] ED Patient Summaryon 018 ED Patient Summary (Inserted Image. Mireya ble to display) [place] [id number] Patient Discharge Instructions Person Information Name: YVONNE GOODEN Age: 22 Years Date: 09/10/2017 11:11 AMDischarge Diagnosis: Intentional drug overdose; Suicidal ideation Primary Care Physician: NONE, XXXX Provider InformationPrimary Provider: Johanna Hogan DO Fender Repairer:Jared The exam and treatment you received in the Emergency Department were for an urgent problem and are not intended as complete care. It is important that you follow up with a doctor, nurse practitioner, or physician?s assistant attorney general for ongoing care. If your symptoms become worse or you do not improve as expected and you are unable to reach your usual health care provider, you should return to the Emergency Department. We are available 24 hours a day. YVONNE GOODEN has been given the following list of patient education materials, prescriptions and follow-up instructions: Follow-up Instructions:With: Address: When: [facility] In 3 days 09/13/2017 In the event that this physician does not participate in your insurance network, please consult with your insurance company to find a nearby participating provider. Patient Education Materials:Suicidal Feelings: How to Help Yourself; Poisoning Information, Adult; Nontoxic Ingestion Medications Given:Medication Dose Route Sodium Chloride 0.9% intravenous solution 1000.00 mL Initial Volume 1000.00 mL/hr IV Right Antecubit Rad potassium chloride 40.00 mEq Oral Medication Information:Medications to Continue with No ChangesOther Medicationsethinyl estradiol-norgestimate (TriNessa oral tablet) fluoxetine (FLUoxetine 10 mg Cap) Comment: Pharmacy Information: Thank you for choosing [facility] Patient Education Materials: Suicidal Feelings, How to Help YourselfEveryone feels sad or unhappy at times, but depressing thoughts and feelings of hopelessness can lead to thoughts of suicide. It can seem as if life is too tough to handle. If you feel as though you have reached the point where suicide is the only answer, it is time to let someone know immediately. HOW TO COPE AND PREVENT SUICIDE? Let family, friends, teachers, or counselors know. Get help. Try not to isolate yourself from those who care about you. Even though you may not feel sociable, talk with someone every day. It is best if it is frim-dq-yxbg. Remember, they will want to help you.? Eat a regularly spaced and well-balanced diet. ? Get plenty of rest. ? Avoid alcohol and drugs because they will only make you feel worse and may also lower your inhibitions. Remove them from the home. If you are thinking of taking an overdose of your prescribed medicines, give your medicines to someone who can give them to you one day at a time. If you are on antidepressants, let your caregiver know of your feelings so he or she can provide a safer medicine, if that is a concern.? Remove weapons or poisons from your home.? Try to stick to routines. Follow a schedule and remind yourself that you have to keep that schedule every day. ? Set some realistic goals and achieve them. Make a list and cross things off as you go. Accomplishments give a sense of worth. Wait until you are feeling better before doing things you find difficult or unpleasant to do.? If you are able, try to start exercising. Even half-hour periods of exercise each day will make you feel better. Getting out in the sun or into nature helps you recover from depression faster. If you have a favorite place to walk, take advantage of that.? Increase safe activities that have always given you pleasure. This may include playing your favorite music, reading a good book, painting a picture, or playing your favorite instrument. Do whatever takes your mind off your depression.? Keep your living space well-lighted.GET HELPContact a suicide hotline, crisis center, or local suicide prevention center for help right away. Local centers may include a hospital, clinic, community service organization, social service provider, or health department.? Call your local emergency services (911 in the [place]).? Call a suicide hotline:? 7-203-156-TALK ( ) in the [place].? 0-353-QXUPVRE ( ) in the [place].? in the [place] for [place]-speaking counselors.? 5-872-601-4TTY ( ) in the [place] for TTY users.? Visit the following websites for information and help:? National Suicide Prevention Lifeline: www.suicidepreventionlifeline .org? Hopeline: www.hopeline.com? [place] [employer] for Suicide Prevention: www.afsp.org? For lesbian, hollis, bisexual, transgender, or questioning youth, contact The [place] [employer]:? 9-991-0-U-ELOY ( ) in the [facility].? www.thetrevorproject.org? In [place], treatment resources are listed in each province with listings available under [employer] or similar titles. Another source for Crisis Centres by Province is located at http://www.suicideprevention. ca/fv-kgvpnj-xyw/zpll-o-tfinz i-mteyne-jve/crisis-centresDo akilahent Released: 01/09/2004 Document Revised: 09/26/2012 Document Reviewed: 10/30/2014ExitCare? Patient Information ?2015 [employer]. This information is not intended to replace advice given to you by your health care provider. Make sure you discuss any questions you have with your health care provider.Poisoning InformationPoisoning is illness caused by eating, drinking, touching, or inhaling a harmful substance. The damaging effects on the person's health will vary depending on the type of poison, the amount of exposure, and the duration of exposure before treatment. These effects may range from mild to very severe or even fatal. Most poisonings take place in the home and involve common household products. They can also occur in the workplace, especially in industrial or manufacturing facilities. Poisoning is more common in children than adults. However, poisoning often causes more serious illness in adults. Poisonings are often accidental, but there are also many cases in which a person intentionally ingests poison.WHAT THINGS MAY BE POISONOUS?A poison can be any substance that causes illness or harm to the body. Poisoning is often caused by products that are commonly found in homes. Many substances can become poisonous if used in ways or amounts that are not appropriate. Some common products that can cause poisoning are: ? Medicines, including prescription medicines, nbar-odi-yyjqasl pain medicines, vitamins, iron pills, and herbal supplements.? Cleaning or laundry products.? Colerain and paint thinner.? Holland or insect killers.? Perfume, hair spray, or nail products.? Alcohol.? Plants, such as philodendron, poinsettia, oleander, castor baker, cactus, and tomato plants.? Batteries.? Furniture malawian.? Drain intervention specialist.? Antifreeze or other automotive products.? Gasoline, banbury mixer operator fluid, or lamp oil.? Carbon monoxide gas from furnaces or automobiles.? Toxic fumes from the burning of plastics or certain other materials.WHAT ARE SOME FIRST-AID MEASURES FOR POISONING?The local poison control center must be contacted whenever a person may have been exposed to poison. The poison pressure controller will often give a set of directions to follow over the phone. These directions may include the following:? Remove any substance that is still in the mouth if the poison was not food or medicine. Drink a small amount of water. ? Keep the medicine container if too much medicine or the wrong medicine was swallowed. Use it to identify the medicine to the poison pressure controller.?? Get away from the area where exposure occurred as soon as possible if the poison was from fumes or chemicals.? Get fresh air as soon as possible if a poison was inhaled. ? Remove any affected clothing and rinse the skin with water if a poison got on the skin.?? Rinse the eyes with water if a poison or chemical got in the eyes. ? Begin cardiopulmonary resuscitation (CPR) if breathing stops. HOW CAN YOU PREVENT POISONING?Take these steps to help prevent poisoning:? Keep medicines and chemical products in their original containers. Many of these come in child-safe packaging. Store them in areas out of reach of children.? Educate others?about the dangers of possible poisons.? Read labels before using medicine or household products. Leave the original labels on the containers. ? Always turn on a light when taking medicine. Check the dosage every time. ?? Close the containers tightly after using medicine or chemical products. ? Get rid of unneeded and outdated medicines by following the specific disposal instructions on the medicine label or the patient information that came with the medicine. Do not put medicine in the trash or flush it down the toilet. Use the [facility]'s drug take-back program to dispose of medicine. If these options are not available, take the medicine out of the original container and mix it with an undesirable substance, such as coffee grounds or david litter. Seal the mixture in a sealable bag, can, or other container and throw it away.?? Keep all dangerous household products (such as banbury mixer operator fluid, paint thinner and remover, gasoline, and antifreeze) in locked cabinets. ? Do not mix different household chemicals with each other.? Use protective equipment (gloves, goggles, masks, aprons) as needed when using chemicals or intervention specialist.? Install a carbon monoxide detector in your home.WHEN SHOULD YOU SEEK HELP?Contact the poison control center whenever?you suspect that a person has been exposed to poison. Call (in the [place] to reach a poison center for your area. If you are outside the [place] ask your health care provider what the phone number is for your local poison control center. Keep the phone number posted near your phone. Make sure everyone in your household knows where to find the number.The local emergency services (286 in [place] must be contacted if a person has been exposed to poison and: ? Has trouble breathing or stops breathing.? Develops chest pain.? Has trouble staying awake or becomes unconscious.? Has a seizure.? Has severe vomiting or bleeding.? Has a worsening headache.? Has a decreased level of alertness.? Develops a widespread rash that may or may not be painful.? Has changes in vision. ? Has difficulty swallowing.? Develops severe abdominal pain.FOR MORE INFORMATIONAmerican Association of Poison Control Centers: www.aapcc.orgDocument Released: 06/21/2013 Document Revised: 11/19/2014 Document Reviewed: 06/21/2013ExitCare? Patient Information ?2014 [employer]. This information is not intended to replace advice given to you by your health care provider. Make sure you discuss any questions you have with your health care provider.Nontoxic IngestionYour exam shows your ingestion is not likely to cause serious medical problems. Further treatment is not needed at this time. If you have vomited since your ingestion, you should not drink or eat for at least 2 to 3 hours. Then start with small sips of clear liquids until your stomach settles. You should not drink alcohol or take illegal recreational drugs or other mind-altering substances as this may worsen your condition. Sometimes the effects of drugs and other substances can be delayed.SEEK IMMEDIATE MEDICAL CARE IF:? You develop confusion, sleepiness, agitation, or difficulty walking.? You develop breathing problems, a cough, difficulty swallowing, or excess mucus.? You develop a stomach ache, repeated vomiting, or severe diarrhea.? You develop weakness, fever, or dehydration.Document Released: 08/12/2005 Document Revised: 09/26/2012 Document Reviewed: 08/05/2009ExitCare? Patient Information ?2014 [employer]. This information is not intended to replace advice given to you by your health care provider. Make sure you discuss any questions you have with your health care provider.GIACOMO Barrios ALICYN D , have received the following patient education materials/instructions and have verbalized understanding: Patient Education Materials: Suicidal Feelings: How to Help Yourself; Poisoning Information, Adult; Nontoxic Ingestion Follow-up Instructions: With: Address: When: [facility] In 3 days 09/13/2017 Prescriptions: Patient Signature Date Clinician/Nurse Signature Date 09/10/17 15:46:57 Normal [facility] Ethanolon 09-10-2017 Ethanol mass conc mg/dL Normal <=7 [facility] Comment on above: Performed By: #### 2 [id number], [id number], [id number] ####[facility] [address] [place] [address] Hep Func Panelon 09-10-2017 BILIRUBIN.NON-GLUCURO NIDATED:MSCNC:PT:SER/ PLAS:QN: UTC Abnormal 0.1-0.9 [facility] Comment on above: Result Comment: Resu lt verified by Discern Rule. Performed result UTC (Unable to Calculate) was sent as an Alpha code due the inability to calculate a valid numeric value. Performed By: #### 2 [id number], [id number], [id number] ####[facility] [address] [place] [address] Bilirubin.direct mass conc mg/dL Normal 0.1-0.4 [facility] Comment on above: Performed By: #### 2 [id number], [id number], [id number] ####[facility] [address] [place] [address] Albumin mass conc 4.7 g/dL Normal 3.3-5.0 [facility] Comment on above: Performed By: #### 2 [id number], [id number], [id number] ####[facility] [address] [place] [address] Albumin mass conc 1.4 g/dL Normal 1.1-2.2 [facility] Comment on above: Performed By: #### 2 [id number], [id number], [id number] ####[facility] [address] [place] [address] ALP enzyme act/vol 46 Int._Unit/L Normal 21-98 [facility] Comment on above: Performed By: #### 2 [id number], [id number], [id number] ####[facility] [address] [place] [address] ALT No additional P-5'-P enzyme act/vol 18 Int._Unit/L Normal 6-46 [facility] Comment on above: Performed By: #### 2 [id number], [id number], [id number] ####[facility] [address] [place] [address] AST enzyme act/vol 24 Int._Unit/L Normal 5-43 [facility] Comment on above: Performed By: #### 2 [id number], [id number], [id number] ####[facility] [address] [place] [address] Bilirubin mass conc 0.6 mg/dL Normal 0.0-1.1 [facility] Comment on above: Performed By: #### 2 [id number], [id number], [id number] ####[facility] [address] [place] [address] Globulin Calculated mass conc (S) 3.4 g/dL Normal 1.4-4.0 [facility] Comment on above: Performed By: #### 2 [id number], [id number], [id number] ####[facility] [address] [place] [address] Protein mass conc 8.1 g/dL High 6.0-7.8 [facility] Comment on above: Performed By: #### 2 [id number], [id number], [id number] ####[facility] [address] [place] [address] Lipase Levelon 09-10-2017 Lipase enzyme act/vol 17 unit/L Normal 13-58 [facility] Comment on above: Performed By: #### 2 [id number], [id number], [id number] ####[facility] [address] [place] [address] Salicylateon 09-10-2017 Salicylates mass conc mg/dL Low 6-29 [facility] Comment on above: Performed By: #### 2 [id number], [id number], [id number] ####[facility] [address] [place] [address] U BetaHcg Qualon 09-10-2017 HCG.beta subunit molar conc (U) Negative Normal [facility] Comment on above: Performed By: #### 2 [id number] ####[facility] [address] [place] [address] U Drug Screenon 09-10-2017 Amphetamines Screen method >1000 ng/mL Ql (U) Negative Normal Negative [facility] Comment on above: Result Comment: Nega tive Cutoff: <1000 ng/mL Performed By: #### 2 [id number], [id number], [id number] ####[facility] [address] [place] [address] Barbiturates Screen Ql (U) Negative Normal Negative [facility] Comment on above: Result Comment: Nega tive Cutoff: <200 ng/mL Performed By: #### 2 [id number], [id number], [id number] ####[address] [address] Benzodiazepines Screen Ql (U) Negative Normal Negative [facility] Comment on above: Result Comment: Nega tive Cutoff: <200 ng/mL Performed By: #### 2 [id number], [id number], [id number] ####[address] [address] Cocaine Ql (U) Negative Normal Negative [facility] Comment on above: Result Comment: Nega tive Cutoff: <300 ng/mL Performed By: #### 2 [id number], [id number], [id number] ####[id number] [place] [address] Opiates Screen Ql (U) Negative Normal Negative Fis [facility] Comment on above: Result Comment: Nega tive Cutoff: <300 ng/mL Performed By: #### 2 [id number], [id number], [id number] ####[address] [address] Phencyclidine Screen method >25 ng/mL Ql (U) Negative Normal Negative [facility] Comment on above: Result Comment: Nega tive Cutoff: <25 ng/mLThese drug screen results are to be used for medical (i.e., treatment) purposes only. Unconfirmed drug screening results must not be used for non-medical purposes (e.g., employment testing, legal testing). Performed By: #### 2 [id number], [id number], [id number] ####[facility] [address] [place] [address] Tetrahydrocannabinol Screen method >50 ng/mL Ql (U) Negative Normal Negative [facility] Comment on above: Result Comment: Nega tive Cutoff: <50 ng/mL Performed By: #### 2 [id number], [id number], [id number] ####[facility] [address] [place] [address] eGFRon 09-10-2017 GFR/1.73 sq M predicted among blacks MDRD vol rate/area (S/P/Bld) mL/min/{1.73_m2} Normal >=59 [facility] Comment on above: Order Comment: Order added by Discern Expert. Result Comment: eGFR is race adjusted. AA=. Performed By: #### 2 [id number], [id number], [id number] ####[facility] [address] [place] [address] GFR/1.73 sq M predicted among non-blacks MDRD vol rate/area (S/P/Bld) mL/min/{1.73_m2} Normal >=59 [facility] Comment on above: Order Comment: Order added by Discern Expert. Result Comment: Dot Etcher Apprentice lona kidney disease could be indicated at eGFR's of less than 60 mL/min/1.73m2. Kidney failure is indicated at less than 15 mL/min/1.73m2. Performed By: #### 2 [id number], [id number], [id number] ####[facility] [address] [place] [address] ED Note-Physicianon 07-12-20 ED Note-Physician Patient: JEREMIE GOODEN Age: 22 years Sex: Female : 1995 Associated Diagnoses: None Author: Alf Uribe MD Basic Information Time seen: Date & time 06/13/17 18:44:00. Additional information: Chief Complaint from Nursing Triage Note : Chief Complaint 06/13/2017 18:38 EST Chief Complaint pt states sore throat since yesterday, progressively worse, further c/o foul odor to urine and dark in color, feeling of urgency . History of Present Illness The patient presents with sore throat and Painful urination. The onset was 1 days ago. The course/duration of symptoms is constant and worsening. The character of symptoms is pain. The degree at present is moderate. The exacerbating factor is none. Risk factors consist of not diabetes mellitus, not coronary artery disease, not hypertension and not gastroesophageal reflux disease. Associated symptoms: denies fever, denies chills, denies nausea, denies vomiting, denies cough and denies rhinorrhea. The degree at onset was moderate. The degree at present is moderate. Exacerbating factors: not coughing or exertion. Risk factors consist of not diabetes mellitus, not hypertension and not immunocompromised patient. 22-year-old female present ER with complaint of sore throat and painful urination has no difficulty swallowing no deforming no neck pain no stiffnecked no sinus congestion no fever chills no rash no sick contacts is also complaining of painful frequent urination without hematuria without vaginal odor or discharges sexually activity.use of condoms symptoms is started a few days ago Review of Systems Constitutional symptoms: no fever, no chills. Skin symptoms: no rash. Eye symptoms: Negative except as documented in HPI. ENMT symptoms: Sore throat, no ear pain, no sinus pain. Respiratory symptoms: no orthopnea, no cough. Cardiovascular symptoms: no chest pain. Gastrointestinal symptoms: no nausea, no vomiting, no diarrhea, no constipation. Genitourinary symptoms: Dysuria, no hematuria, no vaginal bleeding, no vaginal discharge. Musculoskeletal symptoms: no back pain, no Muscle pain. Neurologic symptoms: no headache. Health Status Allergies: Allergic Reactions (Selected)Severity Not DocumentedBee Stings- Swelling.. Immunizations: Up to date. Past Medical/ Family/ Social History Medical history: No active or resolved past medical history items have been selected or recorded.. Surgical history: No active procedure history items have been selected or recorded.. Family history: No family history items have been selected or recorded.. Social history: Social & Psychosocial HabitsNo Data Available. Problem list: No qualifying data available. Physical Examination Vital Signs Vital Signs 06/13/2017 18:38 EST Temperature Oral 36.2 DegC Peripheral Pulse Rate 84 bpm Respiratory Rate 20 br/min Systolic Blood Pressure 108 mmHg Diastolic Blood Pressure 65 mmHg SpO2 97 % . General: Alert. Skin: Warm. Head: Normocephalic. Eye: Pupils are equal, round and reactive to light. Ears, nose, mouth and throat: Slight pharyngeal erythema without exudates bilateral tympanic membranes are normal. Respiratory: Lungs are clear to auscultation, respirations are non-labored. Cardiovascular: Regular rate and rhythm, Normal peripheral perfusion. Chest wall: No tenderness. Back: Nontender. Musculoskeletal: Normal ROM. Gastrointestinal: Soft, Nontender, Non distended, Normal bowel sounds, No organomegaly. Neurological: Alert and oriented to person, place, time, and situation, No focal neurological deficit observed, CN II-XII intact, normal sensory observed. Medical Decision Making Differential Diagnosis: Viral pharyngitis, exudative pharyngitis, tonsillitis. Rationale: Negative strep will treat with Keflex for UTI cultures are pending. Orders Launch Orders Laboratory:U Beta Hcg Qual (Order): Urine, Stat collect, 06/13/2017 18:45 EST, Nurse collect, Print Label By Order LocationUA With Cult Reflex (Order): Urine, Clean Catch, Stat collect, 06/13/2017 18:45 EST, Nurse collect, Print Label By Order Location. Results review: All Results 06/13/2017 18:57 EST UA Spec Desc Clean Catch UA Color Straw UA Clarity Clear UA Spec Grav 1.020 UA pH 5.5 UA Protein Negative UA Glucose Negative UA Ketones Negative UA Bili Negative UA Blood Trace UA Nitrite Negative UA Urobilinogen 0.2 EU/dL UA Leuk Est 1+ UA RBC 0-3 /HPF UA Squam Epithelial 0-2 /HPF UA WBC 16-25 /HPF UA Bacteria Trace /HPF UA Mucous 1+ U beta hCG Ql Negative . Impression and Plan Diagnosis Acute UTI ([id number] N39.0, Discharge, Medical) Pharyngitis ([id number] J02.9, Discharge, Medical) Plan Disposition: Discharged: Time 06/13/17 19:35:00, to home. Prescriptions: Launch prescriptions Pharmacy:Keflex 500 mg Cap (Order): 500 mg, Cap, Oral, Once, Stop date 06/13/2017 19:37 EST, STAT, Start date 06/13/2017 19:37 ESTKeflex 500 mg Cap (Prescribe): 500 = 1 mg cap(s), Oral, q6hr, X 7 day(s), # 28 cap(s), Refills(s) 0. Patient was given the following educational materials: Urinary Tract Infection, Pfkj-jt-Qfxf, Urinary Tract Infection, Mpla-re-Wwan, Upper Respiratory Infection, Adult, Upper Respiratory Infection, Adult, Urinary Tract Infection, Okfy-wl-Ezrt, Upper Respiratory Infection, Adult, Urinary Tract Infection, Eldi-bi-Heom. Follow up with: XXXX NONE In 3 days 06/16/2017, XXXX NONE In 3 days 06/16/2017; Follow-up for [address] Atkinson in [facility] In 3 days 06/16/2017. Counseled: Patient, Family, Regarding diagnosis, Regarding diagnostic results, Regarding treatment plan, Regarding prescription, Patient indicated understanding of instructions. [facility] Comment on above: Result Comment: Elec tronically Signed By: Rony GUZMAN, Alf\.br\Date and Time Signed: 07/11/17 22:56 EST C Strep Screenon 06-15-2017 Protein mass conc MicrobiologyPROCEDUR E: Strep Screen Culture [R1]SOURCE: Throat BODY SITE:COLLECTED DATE/TIME: 06/13/2017 19:06 EST RECEIVED DATE/TIME: 06/13/2017 19:29 ESTSTART DATE/TIME: 06/13/2017 19:29 EST FREE TEXT SOURCE:Robert Quinonez PA-C, PA-C, RobertFINAL REPORTSFinal Report [] Verified Date/Time: 06/15/2017 12:22 ESTNo Pathogenic Streptococcus IsolatedPerforming LocationsR1: This test was performed at: [facility], [address] [place] [address], [id number] , [facility] Comment on above: Performed By: #### 2 [id number] ####[facility] [address] [place] [address] C Urineon 06-15-2017 Bacteria identified Cx Nom (U) MicrobiologyPROCEDURE: Urine Culture [R1] U CleanCatch BODY SITE:COLLECTED DATE/TIME: 06/13/2017 18:57 EST RECEIVED DATE/TIME: 06/13/2017 19:22 ESTSTART DATE/TIME: 06/13/2017 19:22 EST FREE TEXT SOURCE:Cristiano CADENA, Robert Quinonez PA-C, RobertFINAL REPORTSFinal Report [] Verified Date/Time: 06/15/2017 12:24 EST10,000 cfu/ml Escherichia coliSUSCEPTIBILITY RESULTS LEGEND: S=Susceptible, N/R=Not Reported, Blank=Data not available, or drug notadvisable or tested, I=Intermediate, ESBL=Extended spectrum beta-lactamase,R=Resistant, TFG=Thymidine-dependent strain, TERE=Beta-lactamase positive,SERG=mcg/m;(mg/L), S*=Predicted susceptible interp, R*=Predicted resistant interp ECAntibiotic SERG Dilutn SERG InterpAmikacin <=16 SAmoxicillin/ <=8/4 SClavulanateAmpicillin <=8 SAmpicillin/ <=8/4 SSulbactamCefazolin <=8 SCefepime <=4 SCefotaxime <=2 SCeftazidime <=1 SCeftriaxone <=8 SCefuroxime <=4 SCiprofloxacin <=1 SErtapenem <=2 SGentamicin <=4 SImipenem <=1 SLevofloxacin <=2 SNitrofurantoin <=32 SPiperacillin/ <=16 STazobactamTetracycline <=4 STobramycin <=4 STrimethoprim/ <=2/38 SSulfaPerforming LocationsR1: This test was performed at: [facility], [address] [place] [address], [id number] , [facility] Comment on above: Performed By: #### 2 [id number], [id number], [id number] ####[facility] [address] [place] [address] Coding Summary.on 06-15-2017 Coding Summary. CODING DATE: 017 FINAL [facility] DSC STATUS: Home (Routine DC) PAYOR: Self Pay APC DESCRIPTION 5023 Level 3 Type A ED Visits ADMIT DX: REASON FOR VISIT DX: J02.9 Acute pharyngitis, unspecified R30.0 Dysuria FINAL DX: PRINCIPAL: N39.0 Urinary tract infection, site not specified SECONDARY: J02.9 Acute pharyngitis, unspecified PYMT PROC APC STAT DESCRIPTION DOCTOR NAME DATE NOTE: The code number assigned matches the documented diagnosis and / or procedure in the patient's chart. However, the narrative phrase printed from the coding software may appear abbreviated, or result in slightly different terminology. Revised Coded By: Sofie Schaeffer Revised Date Saved: 06/15/2017 04:56 pm Normal [facility] ED Clinical Summaryon 2016 ED Clinical Summary (Inserted Image. Mireya ble to display) [address] [address] ED Clinical SummaryPerson Information Name: YVONNE GOODEN/JudyTerry Age: 22 Years : 1995 12:00 AM Sex: Female Language:Peruvian PCP: NONE, XXXX Marital Status:Single Visit Id: Visit Reason:Urination painful; Throat pain - Adult; SORE THROAT Speciality: Acuity: 4 Enc Type: Emergency Med Service: Emergency Arrival:06/13/2017 6:37 PM Discharge: 06/13/2017 7:46 PM LOS: 000 01:09 Checkin:06/13/2017 6:37 PM Checkout: 06/13/2017 7:46 PM Dispo Type: Home (Routine DC) EVENTS:Event Name Event Status Request Date/Time Start Date/Time Complete Date/Time Arrive Complete 06/13/2017 6:37 PM 06/13/2017 6:37 PM 06/13/2017 6:37 PM Document Home Meds Complete 06/13/2017 6:37 PM 06/13/2017 7:15 PM 06/13/2017 7:15 PM Triage Complete 06/13/2017 6:37 PM 06/13/2017 6:43 PM 06/13/2017 6:43 PM Bed Assign Complete 06/13/2017 6:38 PM 06/13/2017 6:38 PM 06/13/2017 6:[address] Exam Complete 06/13/2017 6:38 PM 06/13/2017 6:43 PM 06/13/2017 6:43 PM RN Exam Complete 06/13/2017 6:38 PM 06/13/2017 7:15 PM 06/13/2017 7:15 PM Registration Complete 06/13/2017 6:43 PM 06/13/2017 6:49 PM 06/13/2017 6:49 PM Pending Labs Complete 06/13/2017 6:45 PM 06/13/2017 7:14 PM Lab Complete 06/13/2017 6:45 PM 06/13/2017 7:14 PM Urine Collect Complete 06/13/2017 6:45 PM 06/13/2017 7:14 PM Reg Complete Request 06/13/2017 6:49 PM Reg Bed Request Complete 06/13/2017 6:49 PM 06/13/2017 6:49 PM 06/13/2017 6:49 PM Pending Labs Complete 06/13/2017 6:58 PM 06/13/2017 7:28 PM Pending Labs Inlab 06/13/2017 7:06 PM 06/13/2017 7:06 PM Lab Inlab 06/13/2017 7:06 PM 06/13/2017 7:[address] Exam Complete 06/13/2017 7:09 PM 06/13/2017 7:09 PM 06/13/2017 7:09 PM Registration Request 06/13/2017 7:09 PM Pending Labs Inlab 06/13/2017 7:28 PM 06/13/2017 7:28 PM Lab Inlab 06/13/2017 7:28 PM 06/13/2017 7:28 PM Meds Admin Complete 06/13/2017 7:37 PM 06/13/2017 7:41 PM Discharge Complete 06/13/2017 7:40 PM 06/13/2017 7:46 PM 06/13/2017 7:46 PM Transfer Complete 06/13/2017 7:46 PM 06/13/2017 7:46 PM 06/13/2017 7:46 PM ADDRESS:[address] [place] [address] [address] [place] [id number] [facility] DOC NOTES: MEDICAL INFORMATION: Prescriptions Given:Prescription Display cephalexin (Keflex 500 mg Cap) 500 mg = 1 cap(s), Oral, q6hr, X 7 day(s), # 28 cap(s), Refills(s) 0 Home Meds Display ethinyl estradiol-norgestimate (TriNessa oral tablet) Refill(s) 0 fluoxetine (FLUoxetine 10 mg Cap) Refills(s) 0 PATIENT EDUCATION INFORMATION: Instructions:Upper Respiratory Infection, Adult; Urinary Tract Infection, Rzqm-cc-Cmdm Follow up:With: Address: When: Follow-up for [address] Atkinson in [facility] In 3 days 06/16/2017 With: Address: When: XXXX NONE , [place] In 3 days 06/16/2017 DIAGNOSIS:Acute UTI; Pharyngitis Normal [facility] ED Patient Education Noteon 06-13-2017 ED Patient Education Note Patient Education Materials Follows:Upper Respiratory Infection, AdultAn upper respiratory infection (URI) is also sometimes known as the common cold. The upper respiratory tract includes the nose, sinuses, throat, trachea, and bronchi. Bronchi are the airways leading to the lungs. Most people improve within 1 week, but symptoms can last up to 2 weeks. A residual cough may last even longer. CAUSESMany different viruses can infect the tissues lining the upper respiratory tract. The tissues become irritated and inflamed and often become very moist. Mucus production is also common. A cold is contagious. You can easily spread the virus to others by oral contact. This includes kissing, sharing a glass, coughing, or sneezing. Touching your mouth or nose and then touching a surface, which is then touched by another person, can also spread the virus.SYMPTOMSSymptoms typically develop 1 to 3 days after you come in contact with a cold virus. Symptoms vary from person to person. They may include:? Runny nose.? Sneezing.? Nasal congestion.? Sinus irritation.? Sore throat.? Loss of voice (laryngitis).? Cough.? Fatigue.? Muscle aches.? Loss of appetite.? Headache.? Low-grade fever.DIAGNOSISYou might diagnose your own cold based on familiar symptoms, since most people get a cold 2 to 3 times a year. Your caregiver can confirm this based on your exam. Most importantly, your caregiver can check that your symptoms are not due to another disease such as strep throat, sinusitis, pneumonia, asthma, or epiglottitis. Blood tests, throat tests, and X-rays are not necessary to diagnose a common cold, but they may sometimes be helpful in excluding other more serious diseases. Your caregiver will decide if any further tests are required.RISKS AND COMPLICATIONSYou may be at risk for a more severe case of the common cold if you smoke cigarettes, have chronic heart disease (such as heart failure) or lung disease (such as asthma), or if you have a weakened immune system. The very young and very old are also at risk for more serious infections. Bacterial sinusitis, middle ear infections, and bacterial pneumonia can complicate the common cold. The common cold can worsen asthma and chronic obstructive pulmonary disease (COPD). Sometimes, these complications can require emergency medical care and may be life-threatening.PREVENTIONTh e best way to protect against getting a cold is to practice good hygiene. Avoid oral or hand contact with people with cold symptoms. Wash your hands often if contact occurs. There is no clear evidence that vitamin C, vitamin E, echinacea, or exercise reduces the chance of developing a cold. However, it is always recommended to get plenty of rest and practice good nutrition.TREATMENTTreatment is directed at relieving symptoms. There is no cure. Antibiotics are not effective, because the infection is caused by a virus, not by bacteria. Treatment may include:? Increased fluid intake. Sports drinks offer valuable electrolytes, sugars, and fluids.? Breathing heated mist or steam (vaporizer or shower).? Eating chicken soup or other clear broths, and maintaining good nutrition.? Getting plenty of rest.? Using gargles or lozenges for comfort.? Controlling fevers with ibuprofen or acetaminophen as directed by your caregiver.? Increasing usage of your inhaler if you have asthma.Zinc gel and zinc lozenges, taken in the first 24 hours of the common cold, can shorten the duration and lessen the severity of symptoms. Pain medicines may help with fever, muscle aches, and throat pain. A variety of non-prescription medicines are available to treat congestion and runny nose. Your caregiver can make recommendations and may suggest nasal or lung inhalers for other symptoms. HOME CARE INSTRUCTIONS? Only take bypo-nnf-obxyjvy or prescription medicines for pain, discomfort, or fever as directed by your caregiver. ? Use a warm mist humidifier or inhale steam from a shower to increase air moisture. This may keep secretions moist and make it easier to breathe.? Drink enough water and fluids to keep your urine clear or pale yellow.? Rest as needed.? Return to work when your temperature has returned to normal or as your caregiver advises. You may need to stay home longer to avoid infecting others. You can also use a face mask and careful hand washing to prevent spread of the virus.SEEK MEDICAL CARE IF:? After the first few days, you feel you are getting worse rather than better.? You need your caregiver's advice about medicines to control symptoms.? You develop chills, worsening shortness of breath, or brown or red sputum. These may be signs of pneumonia.? You develop yellow or brown nasal discharge or pain in the face, especially when you bend forward. These may be signs of sinusitis.? You develop a fever, swollen neck glands, pain with swallowing, or white areas in the back of your throat. These may be signs of strep throat. SEEK IMMEDIATE MEDICAL CARE IF:? You have a fever.? You develop severe or persistent headache, ear pain, sinus pain, or chest pain.? You develop wheezing, a prolonged cough, cough up blood, or have a change in your usual mucus (if you have chronic lung disease). ? You develop sore muscles or a stiff neck.Document Released: 12/29/2001 Document Revised: 09/26/2012 Document Reviewed: 10/10/2014ExitCare? Patient Information ?2015 [employer]. This information is not intended to replace advice given to you by your health care provider. Make sure you discuss any questions you have with your health care provider.Family MedicineUrinary Tract InfectionA urinary tract infection (UTI) can occur any place along the urinary tract. The tract includes the kidneys, ureters, bladder, and urethra. A type of germ called bacteria often causes a UTI. UTIs are often helped with antibiotic medicine. HOME CARE? If given, take antibiotics as told by your doctor. Finish them even if you start to feel better.? Drink enough fluids to keep your pee (urine) clear or pale yellow.? Avoid tea, drinks with caffeine, and bubbly (carbonated) drinks.? Pee often. Avoid holding your pee in for a long time. ? Pee before and after having sex (intercourse).? Wipe from front to back after you poop (bowel movement) if you are a woman. Use each tissue only once.GET HELP RIGHT AWAY IF:? You have back pain.? You have lower belly (abdominal) pain.? You have chills.? You feel sick to your stomach (nauseous).? You throw up (vomit).? Your burning or discomfort with peeing does not go away.? You have a fever.? Your symptoms are not better in 3 days. MAKE SURE YOU:? Understand these instructions.? Will watch your condition.? Will get help right away if you are not doing well or get worse.Document Released: 12/21/2008 Document Revised: 03/29/2013 Document Reviewed: 02/02/2013ExitCare? Patient Information ?2014 [employer]. This information is not intended to replace advice given to you by your health care provider. Make sure you discuss any questions you have with your health care provider. Normal [facility] ED Patient Summaryon 017 ED Patient Summary (Inserted Image. Mireya ble to display) [address] [address] Patient Discharge Instructions Person Information Name: YVONNE GOODEN Age: 22 Years Date: 06/13/2017 6:37 PMDischarge Diagnosis: Acute UTI; Pharyngitis Primary Care Physician: NONE, XXXX Provider InformationPrimary Provider: Ping Uribe MD Fender Repairer:None The exam and treatment you received in the Emergency Department were for an urgent problem and are not intended as complete care. It is important that you follow up with a doctor, nurse practitioner, or physician?s assistant attorney general for ongoing care. If your symptoms become worse or you do not improve as expected and you are unable to reach your usual health care provider, you should return to the Emergency Department. We are available 24 hours a day. YVONNE GOODEN has been given the following list of patient education materials, prescriptions and follow-up instructions: Follow-up Instructions:With: Address: When: Follow-up for [address] Atkinson in [facility] In 3 days 06/16/2017 With: Address: When: XXXX [facility] , [place] In 3 days 06/16/2017 In the event that this physician does not participate in your insurance network, please consult with your insurance company to find a nearby participating provider. Patient Education Materials:Upper Respiratory Infection, Adult; Urinary Tract Infection, Gidm-bq-Ymsk Medications Given:Medication Dose Route cephalexin 500.00 mg Oral Medication Information:New MedicationsPrinted Prescriptionscephalexin (Keflex 500 mg Cap) 1 Capsules By Mouth every 6 hours for 7 Days. Refills: 0.Medications to Continue with No ChangesOther Medicationsethinyl estradiol-norgestimate (TriNessa oral tablet) fluoxetine (FLUoxetine 10 mg Cap) Comment: Pharmacy Information: Thank you for choosing [facility] Patient Education Materials: Upper Respiratory Infection, AdultAn upper respiratory infection (URI) is also sometimes known as the common cold. The upper respiratory tract includes the nose, sinuses, throat, trachea, and bronchi. Bronchi are the airways leading to the lungs. Most people improve within 1 week, but symptoms can last up to 2 weeks. A residual cough may last even longer. CAUSESMany different viruses can infect the tissues lining the upper respiratory tract. The tissues become irritated and inflamed and often become very moist. Mucus production is also common. A cold is contagious. You can easily spread the virus to others by oral contact. This includes kissing, sharing a glass, coughing, or sneezing. Touching your mouth or nose and then touching a surface, which is then touched by another person, can also spread the virus.SYMPTOMSSymptoms typically develop 1 to 3 days after you come in contact with a cold virus. Symptoms vary from person to person. They may include:? Runny nose.? Sneezing.? Nasal congestion.? Sinus irritation.? Sore throat.? Loss of voice (laryngitis).? Cough.? Fatigue.? Muscle aches.? Loss of appetite.? Headache.? Low-grade fever.DIAGNOSISYou might diagnose your own cold based on familiar symptoms, since most people get a cold 2 to 3 times a year. Your caregiver can confirm this based on your exam. Most importantly, your caregiver can check that your symptoms are not due to another disease such as strep throat, sinusitis, pneumonia, asthma, or epiglottitis. Blood tests, throat tests, and X-rays are not necessary to diagnose a common cold, but they may sometimes be helpful in excluding other more serious diseases. Your caregiver will decide if any further tests are required.RISKS AND COMPLICATIONSYou may be at risk for a more severe case of the common cold if you smoke cigarettes, have chronic heart disease (such as heart failure) or lung disease (such as asthma), or if you have a weakened immune system. The very young and very old are also at risk for more serious infections. Bacterial sinusitis, middle ear infections, and bacterial pneumonia can complicate the common cold. The common cold can worsen asthma and chronic obstructive pulmonary disease (COPD). Sometimes, these complications can require emergency medical care and may be life-threatening.PREVENTIONTh e best way to protect against getting a cold is to practice good hygiene. Avoid oral or hand contact with people with cold symptoms. Wash your hands often if contact occurs. There is no clear evidence that vitamin C, vitamin E, echinacea, or exercise reduces the chance of developing a cold. However, it is always recommended to get plenty of rest and practice good nutrition.TREATMENTTreatment is directed at relieving symptoms. There is no cure. Antibiotics are not effective, because the infection is caused by a virus, not by bacteria. Treatment may include:? Increased fluid intake. Sports drinks offer valuable electrolytes, sugars, and fluids.? Breathing heated mist or steam (vaporizer or shower).? Eating chicken soup or other clear broths, and maintaining good nutrition.? Getting plenty of rest.? Using gargles or lozenges for comfort.? Controlling fevers with ibuprofen or acetaminophen as directed by your caregiver.? Increasing usage of your inhaler if you have asthma.Zinc gel and zinc lozenges, taken in the first 24 hours of the common cold, can shorten the duration and lessen the severity of symptoms. Pain medicines may help with fever, muscle aches, and throat pain. A variety of non-prescription medicines are available to treat congestion and runny nose. Your caregiver can make recommendations and may suggest nasal or lung inhalers for other symptoms. HOME CARE INSTRUCTIONS? Only take hzjc-nek-gxjkttc or prescription medicines for pain, discomfort, or fever as directed by your caregiver. ? Use a warm mist humidifier or inhale steam from a shower to increase air moisture. This may keep secretions moist and make it easier to breathe.? Drink enough water and fluids to keep your urine clear or pale yellow.? Rest as needed.? Return to work when your temperature has returned to normal or as your caregiver advises. You may need to stay home longer to avoid infecting others. You can also use a face mask and careful hand washing to prevent spread of the virus.SEEK MEDICAL CARE IF:? After the first few days, you feel you are getting worse rather than better.? You need your caregiver's advice about medicines to control symptoms.? You develop chills, worsening shortness of breath, or brown or red sputum. These may be signs of pneumonia.? You develop yellow or brown nasal discharge or pain in the face, especially when you bend forward. These may be signs of sinusitis.? You develop a fever, swollen neck glands, pain with swallowing, or white areas in the back of your throat. These may be signs of strep throat. SEEK IMMEDIATE MEDICAL CARE IF:? You have a fever.? You develop severe or persistent headache, ear pain, sinus pain, or chest pain.? You develop wheezing, a prolonged cough, cough up blood, or have a change in your usual mucus (if you have chronic lung disease). ? You develop sore muscles or a stiff neck.Document Released: 12/29/2001 Document Revised: 09/26/2012 Document Reviewed: 10/10/2014ExitCare? Patient Information ?2015 [employer]. This information is not intended to replace advice given to you by your health care provider. Make sure you discuss any questions you have with your health care provider.Urinary Tract InfectionA urinary tract infection (UTI) can occur any place along the urinary tract. The tract includes the kidneys, ureters, bladder, and urethra. A type of germ called bacteria often causes a UTI. UTIs are often helped with antibiotic medicine. HOME CARE? If given, take antibiotics as told by your doctor. Finish them even if you start to feel better.? Drink enough fluids to keep your pee (urine) clear or pale yellow.? Avoid tea, drinks with caffeine, and bubbly (carbonated) drinks.? Pee often. Avoid holding your pee in for a long time. ? Pee before and after having sex (intercourse).? Wipe from front to back after you poop (bowel movement) if you are a woman. Use each tissue only once.GET HELP RIGHT AWAY IF:? You have back pain.? You have lower belly (abdominal) pain.? You have chills.? You feel sick to your stomach (nauseous).? You throw up (vomit).? Your burning or discomfort with peeing does not go away.? You have a fever.? Your symptoms are not better in 3 days. MAKE SURE YOU:? Understand these instructions.? Will watch your condition.? Will get help right away if you are not doing well or get worse.Document Released: 12/21/2008 Document Revised: 03/29/2013 Document Reviewed: 02/02/2013ExitCare? Patient Information ?2015 [employer]. This information is not intended to replace advice given to you by your health care provider. Make sure you discuss any questions you have with your health care provider.GIACOMO Barrios ALICYN D , have received the following patient education materials/instructions and have verbalized understanding: Patient Education Materials: Upper Respiratory Infection, Adult; Urinary Tract Infection, Zoyp-jw-Qsgu Follow-up Instructions: With: Address: When: Follow-up for [address] Atkinson in [facility] In 3 days 06/16/2017 With: Address: When: XXXX NONE , [place] In 3 days 06/16/2017 Prescriptions: [cephalexin (Keflex 500 mg Cap)] Patient Signature Date Clinician/Nurse Signature Date 06/13/17 19:46:34 Normal [facility] U BetaHcg Qualon 06-13-2017 HCG.beta subunit molar conc (U) Negative Normal [facility] Comment on above: Performed By: #### 2 [id number], [id number], [id number] ####[facility] [address] [place] [address] UA With Cult Reflexon 2016 Bacteria LM Ql (Urine sed) TRACE Normal Trace [facility] Comment on above: Performed By: #### 2 [id number], [id number], [id number] ####[facility] [address] [place] [address] Bilirubin Ql (U) Negative Normal Negative [facility] Comment on above: Performed By: #### 2 [id number], [id number], [id number] ####[facility] [address] [place] [address] Clarity Nom (U) CLEAR Normal Clear [facility] Comment on above: Performed By: #### 2 [id number], [id number], [id number] ####[id number] [place] [address] Color Auto Nom (U) STRAW Abnormal Yellow [facility] Comment on above: Performed By: #### 2 [id number], [id number], [id number] ####[facility] [address] [place] [address] Epithelial cells.squamous LM.HPF #/area (Urine sed) 0-2 Normal 0-2 [facility] Comment on above: Performed By: #### 2 [id number], [id number], [id number] ####[facility] [address] [place] [address] Glucose Test strip mass conc (U) Negative Normal Negative [facility] Comment on above: Performed By: #### 2 [id number], [id number], [id number] ####[address] [address] Hemoglobin Test strip Ql (U) TRACE Abnormal Negative [facility] Comment on above: Performed By: #### 2 [id number], [id number], [id number] ####[facility] [address] [place] [address] Ketones mass conc (U) Negative Normal Negative [facility] Comment on above: Performed By: #### 2 [id number], [id number], [id number] ####[facility] [address] [place] [address] Paragon.plasma/Lithiu m.RBC mass ratio (Bld) 0-3 Normal 0-3 [facility] Comment on above: Performed By: #### 2 [id number], [id number], [id number] ####[facility] [address] [place] [address] Mucus LM Ql (Urine sed) 1+ Normal [facility] Comment on above: Performed By: #### 2 [id number], [id number], [id number] ####[facility] [address] [place] [address] Nitrite Test strip Ql (U) Negative Normal Negative [facility] Comment on above: Performed By: #### 2 [id number], [id number], 5842882 ####[facility] [address] [place] [address] pH Test strip (U) 5.5 [pH] Invalid Interpretation Code 5.0-9.0 [facility] Comment on above: Performed By: #### 2 [id number], [id number], [id number] ####[address] [address] Protein mass conc (U) Negative Normal Negative Fis [facility] Comment on above: Performed By: #### 2 [id number], [id number], [id number] ####[place] [id number] Specific gravity Relative Density (U) 1.020 Invalid Interpretation Code 1.005-1.03 0 [facility] Comment on above: Performed By: #### 2 [id number], [id number], 4054919 ####[place] [id number] UA Spec Desc Clean Catch Normal [facility] Comment on above: Performed By: #### 2 [id number], [id number], 6663663 ####[place] [id number] Urobilinogen Test strip Qn (U) 0.2 {Krista'U}/dL Normal 0.0-1.0 [facility] Comment on above: Performed By: #### 2 [id number], [id number], 5248361 ####[place] [id number] WBC Auto Ql (U) 1+ Abnormal Negative [facility] Comment on above: Performed By: #### 2 [id number], [id number], 0925152 ####[place] [id number] WBC LM.HPF #/area (Urine sed) 16-25 Abnormal 0-5 [facility] Comment on above: Performed By: #### 2 [id number], [id number], [id number] ####[place] [id number] Vital Signs Date Time Vital Sign Value Performing Clinician Jacinto pan 10-17-2023 11:50-0400 Body height 162.56 cm TOMBST[employer] POLISHERAshley Swartz Work Phone: [facility] 10-17-2023 11:50-0400 Body temperature 97.9 [degF] [employer]OM[employer] POLISHERAshley Swartz Work Phone: [facility] 10-17-2023 11:50-0400 Body weight 66.1 kg [employer] POLISHERAshley Swartz Work Phone: [facility] 10-17-2023 11:50-0400 Diastolic blood pressure 60 mm[Hg] [employer] Juan Swartz Work Phone: [facility] 10-17-2023 11:50-0400 Heart rate 91 /min [employer]OM[employer] POLISHERAshley Swartz Work Phone: [facility] 10-17-2023 11:50-0400 Respiratory rate 16 /min [employer]OM[employer] POLISHERAshley Swartz Work Phone: [facility] 10-17-2023 11:50-0400 SaO2% (BldA) [Mass fraction] 97 % [employer]OM[employer] POLISHERAshley Swartz Work Phone: [facility] 10-17-2023 11:50-0400 Systolic blood pressure 126 mm[Hg] [employer] Juan Swartz Work Phone: [facility] Encounters Encounter Date Encounter Type Care Provider Facility Start: 10-17-2023 End: 10-17-2023 Emergency department patient visit [employer]OMBST[employer] POLISHERAshley Swartz Work Phone: [facility] Work Phone: Start: 07-13-2023 End: 07-13-2023 ambulatory NEETU SALAZAR Not Available Start: 05-06-2022 End: 05-06-2022 ambulatory DO Juan Cerna Work Phone: [facility] Work Phone: Start: 05-06-2022 End: 05-06-2022 Patient encounter procedure DO Juan Nehemiah Work Phone: [facility] [place] Start: 02-26-2020 End: 02-27-2020 Patient encounter procedure ROCCO WEBBER Facility:[facility] Start: 02-02-2018 End: 02-03-2018 Patient encounter Mirza Cheng Facility:CD:[id number] Start: 01-28-2018 End: 01-29-2018 Patient encounter Mirza Cheng Facility:CD:[id number] Start: 09-10-2017 End: 09-10-2017 Emergency department patient visit XXXX NONE Facility:[facility] Start: 06-13-2017 End: 06-13-2017 Emergency department patient visit XXXX NONE Facility:[facility] Procedures Date Procedure Procedure Detail Performing Clinician Start: 10-17-2023 Streptococcus pyogen es antigen assay [employer] Juan Sheridan Work Phone: Plan of Treatment Date Care Activity Detail Author Start: 10-17-2023 SARS-CoV-2, Influenz a & RSV (PCR) SARS-CoV-2, Influenza & RSV (PCR) [facility] Start: 10-17-2023 [facility] Patient Education Strep Throat (DC) [facility] Work Phone: Patient referral [facility] Work Phone: Payers Date Payer Category Payer Private Health Insurance [id number] 2017 Self-pay 1995 Unknown [id number] 1997 Unknown [id number] 1959 Unknown [id number] Private Health Insurance [facility] [id number] Unknown Valerie VELOZ/JACOBO [id number] Unknown [id number] Social History Date Type Detail Facility Tobacco smoking status NHIS Unknown if ever smoked [facility] Work Phone: Start: 1995 Sex Assigned At Female [facility] Start: 10-17-2023 Tobacco smoking status NHIS Never smoked tobacco (finding) [facility] NEGATED: Highlighted row Fir [facility] Evaluation note Note Date & Type Note Facility Evaluation note No assessment information availa ble [facility] Work Phone: Summary Purpose Family History No Family History Records Found Relationship Condition Age at Onset Recorded Date/T ila father Hypertension Unknown Family history of mental disorder Unknown Diabetes mellitus Unknown Not Specified Hypertension Unknown Malignant neoplasm Unknown Advance Directives No Advanced Directives Records Found Advance Directive Response Recorded Date/ Time Advance Directives No June 24, 2020 11:43am Chief Complaint and Reason for Visit Chief Complaint Z00.00 Z13.6 Chief Complaint fever, sore throat , chills Additional Source Comments INFORMATION SOURCE (unrecogn ized section and content) DATE CREATED AUTHOR [facility]16/2018 [facility] DATE CREATED AUTHOR AUTHOR'S ORGANIZ ATION 03/06/2020 [facility] pital DATE CREATED AUTHOR AUTHOR'S ORGANIZ ATION 07/15/2023 [facility] DATE CREATED AUTHOR AUTHOR'S ORGANIZ ATION 01/02/2024 [facility] Care Teams (unrecognized sec tion and content) Team Status: Inactive Member Role Status Dates Juan Cerna DO Primary Care Provider, Attending Provider Active Team Status: Active Member Role Status Dates Juan Cerna DO Primary Care Provider Active Team Status: Active Member Role Status Dates Gregorio Garcia MD Primary Care Provider Active Team Status: Inactive Member Role Status Dates Juan Swartz APRN Emergency Provider Active Start: October 17, 2023 End: October 17, 2023 Gregorio Garcia MD Primary Care Provider Active Start: October 17, 2023 End: October 17, 2023 Goals (unrecognized section and content) Goals may be documented in a n alternate sectionGoals may be documented in an alternate section FOR RECORDS PERTAINING TO PATIENTS WHO ARE OR HAVE BEEN ENROLLED IN A CHEMICAL DEPENDENCY/SUBSTANCEABUSE PROGRAM, SOME INFORMATION MAY BE OMITTED. This clinical summary was aggregated from multiple sources. Caution should be exercised in using it in the provision of clinical care. This summary normalizes information from multiple sources, and as a consequence, information in this document may materially change the coding, format and clinical context of patient data. In addition, data may be omitted in some cases. CLINICAL DECISIONS SHOULD BE BASED ON THE PRIMARY CLINICAL RECORDS. [facility] [employer] [facility]. provides no warranty or guarantee of the accuracy or completeness of information in this document.
--- NOTE | 2024-08-12 04:59 | ED_ITS ---
HPI HPI - General Adult General Chief complaint: Nausea/Vomiting/Diarrhea Stated complaint: stomach cramps Time Seen by Provider: 08/12/24 04:34 Source: patient Mode of arrival: walk-in Limitations: no limitations History of Present Illness HPI narrative: Patient is a 29-year-old female who is presenting to the ER with multiple concerns. Patient is having nausea, also has had 4 days of menstrual-like cramping/bleeding. Patient has mild bilateral frontal headache. Patient states that her nausea she took 8 mg of Zofran that she had at home from previous prescription around 8 PM, and it did not help with nausea. She has had no vomiting. Patient has no neck pain. No chest pain or shortness of breath. No urinary frequency urgency or burning. She is having some suprapubic cramping that typically goes along with her menstrual cycle. Patient states that she normally bleeds 4 to 5 days which she has since Wednesday. Patient also is wondering if she is , patient stated that she did a mwax-cyq-jzzavql test and she is not sure if it was positive or negative. Patient has been trying to get for the past 4 months. Patient's TERMITE CONTROL REPRESENTATIVE is Dr. Voss. She has an appointment with Dr. Voss in a couple weeks. Patient has no severe pelvic pain, no pain that is abnormal for her normal menses. Patient's bleeding has lightened up today, it started Wednesday which is normal for her menses. Patient has no flank or back pain. No trauma. No other acute complaints. Patient is also here with her son He was having some abdominal cramping/pain, and mother states he has not had a bowel movement in 12 hours. Mother is also tearful during HPI stating that she has not been sleeping much, they have been trying to get for 4 months, she is becoming more anxious lately in the last several months and did not know what to do when her son woke up and with her symptoms of nausea and headache so she decided to come to the ER. All systems are negative except as noted/marked. All systems reviewed and otherwise negative. Nurses note and vital signs reviewed and patient is not hypoxic. General: The patient appears well and in no apparent distress. Patient is resting comfortably on cart. Patient is not toxic, lethargic, or listless Skin: Warm, dry, no pallor noted. There is no rash noted. No petechiae, purpura. Head: Normocephalic, atraumatic, minimal bilateral frontal sinus tenderness palpation, no bilateral maxillary sinus tenderness palpation. Eye: Normal conjunctiva, no drainage, EOMI. PERRL Ears, Nose, Mouth, and Throat: oral mucosa is moist. Nares patent. Mouth without vesicles. Cardiovascular: Regular Rate and Rhythm, no murmur, gallop, rub Respiratory: Patient is in no distress, no accessory muscle use, lungs are clear to auscultation, no wheezing, rales or rhonchi Back: non-tender, no CVA tenderness bilaterally to percussion. No CT LS midline pain GI: Minimal suprapubic tenderness palpation, no flank pain bilateral; no tenderness to palpation, no masses appreciated. No rebound, guarding, or rigidity noted. No distention. Musculoskeletal: Patient has full range of motion of all of the extremities, no motor, sensory, or focal neurological deficits Neurological: A&O x4, normal speech Psychiatric: Cooperative Related Data Previous Rx's ?Medication ?Instructions ?Recorded metoclopramide HCl 10 mg tablet 10 mg PO Q6H PRN nausea and 08/12/24 (Reglan) vomiting 3 days #7 tabs Allergies Allergy/AdvReac Type Severity Reaction Status Date / Time bee venom protein (honey bee) Allergy Severe Anaphylaxis Verified 08/12/24 04:34 beeswax Allergy Anaphylaxis Verified 08/12/24 04:34 Opioid HPI Opioid Management Most Recent Opioid Data: Last Pain Scale 2 05/19/23 09:25 05/19/23 Ur Phencyclidine Scrn Negative (NEGATIVE) 05/16/23 18:15 04/19 04/10 PFSH PFSH Social History Little interest or pleasure in doing things: not at all Feeling down, depressed, or hopeless: not at all Exam Constitutional Vital Signs, click to edit/add: Last Vital Signs Temp 97.5 F L 08/12/24 04:29 Pulse 81 08/12/24 04:29 Resp 16 08/12/24 04:29 BP 116/76 08/12/24 04:29 Pulse Ox 97 08/12/24 04:29 O2 Del Method Room Air 08/12/24 04:29 Course Vital Signs Vital signs: Vital Signs Temperature 97.5 F L 08/12/24 04:29 Pulse Rate 81 08/12/24 04:29 Respiratory Rate 16 08/12/24 04:29 Blood Pressure 116/76 08/12/24 04:29 Pulse Oximetry 97 08/12/24 04:29 Oxygen Delivery Method Room Air 08/12/24 04:29 Temperature 97.5 F L 08/12/24 04:29 Pulse Rate 81 08/12/24 04:29 Respiratory Rate 16 08/12/24 04:29 Blood Pressure 116/76 08/12/24 04:29 Pulse Oximetry 97 08/12/24 04:29 Oxygen Delivery Method Room Air 08/12/24 04:29 Medical Decision Making MDM Narrative Medical decision making narrative: Patient looks well. Patient appears to be just finishing her menses. She has no significant abdominal pain, pelvic pain, no abnormal bleeding that is out of proportion from her normal menses. There is no acute indication for testing at this time. There is no indication for any lab or radiographic testing. Patient was given Reglan to help with nausea and possible headache. Patient appears that she may have a sinus headache as well. Education using with the counter products to help. Patient was given a prescription for Reglan. Patient was slightly tearful stating that they have been trying to get for the last 4 months with no success. I explained to the patient the reasons why there is no acute indication for testing at this time, patient understands and agrees. Patient will follow-up with Dr. Voss. Patient was told she can use additional sqhs-whd-gfxqikd test if she would like. Patient was told alternate Tylenol Motrin if needed for headache or pain. No acute findings on patient's son as well. They are both discharged. Discharge Plan Discharge Chief Complaint: Nausea/Vomiting/Diarrhea Clinical Impression: Nausea, Sinus headache Patient Disposition: Home, Self-Care Time of Disposition Decision: 04:58 Condition: Fair Prescriptions / Home Meds: New metoclopramide HCl [Reglan] 10 mg tablet 10 mg PO Q6H PRN (Reason: nausea and vomiting) 3 Days Qty: 7 0RF Print Language: Kazakh Instructions: Acute Nausea and Vomiting (ED), Cold Symptoms (ED), General Headache (ED) Additional Instructions: Use Reglan as needed for nausea, vomiting, or headache. You may have sinus hea dache as well. Alternate Tylenol and either Motrin, Advil, or ibuprofen every 4 hours to help with pain. Maximum dose of Tylenol is 3000 mg a day. Maximum dose of either Motrin, Advil, or ibuprofen is 2400 mg a day. Increase fluids at home, Gatorade, Powerade, or water. Alternate using DayQuil, NyQuil, and Flonase. Add Mucinex as well as needed. Alternate Tylenol and Motrin every 4 hours to help with fever control, body aches or joint pain. Use wssl-yci-gqnlrez vitamin C, vitamin D3, and zinc to help fight infection and help with her immune system. Referrals: Gregorio Garcia MD [Primary Care Provider] - 1 week Discharge Date/Time: 08/12/24 05:32
[2024-08-12] MEDS: METOCLOPRAMIDE HCL 10 MG/10 ML SOLUTION REGLAN PO (05:20)
== END 2024-08-12 05:32 | disposition home or self-care (01) ==
PROVIDERS: Emergency Provider Emergency Medicine; PCP Family Medicine
DX: G44.89 Other headache syndrome (principal); R11.0 Nausea
CPT/HCPCS: 99283

== ENCOUNTER 2024-08-28 12:35 | Outpatient (OUT) | payer OTHER, SELFPAY ==
[2024-08-28 14:08] LABS: HCG Quantitative <1 mIU/mL
[2024-08-28 14:15] LABS: Free T4 0.97 ng/dL (0.76-1.46)
[2024-08-29 08:15] LABS: FSH 3.9 mIU/mL (.); Progesterone 15.2 ng/mL (.)
== END 2024-08-28 12:36 | disposition home or self-care (01) ==
LOC: LAB 12:35
PROVIDERS: PCP Family Medicine; Visit Provider Obstetrics & Gynecology
DX: E28.2 Polycystic ovarian syndrome (principal); E34.9 Endocrine disorder, unspecified
CPT/HCPCS: 36415; 82626; 82627; 83001; 83002; 84144; 84439; 84702

== ENCOUNTER 2024-08-28 12:37 | Outpatient (OUT) | payer OTHER, SELFPAY ==
[2024-08-28 12:56] LABS: Basophils Absolute Auto 0.1 10^3/uL (0.0-0.1); Basophils Percent Auto 1.2 % (0.2-2.0); Eosinophils Absolute Auto 0.1 10^3/uL (0.0-0.7); Hematocrit 40.5 % (36.0-48.0); Hemoglobin 13.5 g/dL (12.0-16.0); Immature Granulocytes Abs Auto 0.01 10^3/uL (0.00-0.03); Immature Granulocytes Pct Auto 0.2 % (0.0-0.5); Lymphocytes Absolute Auto 2.2 10^3/uL (1.2-3.8); Mean Corpuscular HGB Conc 33.3 g/dL (29.9-35.2); Mean Corpuscular Hemoglobin 30.3 pg (26.7-34.0); Mean Corpuscular Volume 90.8 fL (81.0-99.0); Mean Platelet Volume 11.1 fL (9.5-13.5); Monocytes Absolute Auto 0.4 10^3/uL (0.3-0.8); Monocytes Percent Auto 7.5 % (1.7-12.0); Neutrophils Absolute Auto 2.4 10^3/uL (1.4-6.5); Neutrophils Percent Auto 47.1 % (43.0-75.0); Platelet Count 298 10^3/uL (150-450); Red Blood Count 4.46 10^6/uL (4.20-5.40); Red Cell Distribution Width 13.1 % (11.0-15.0); White Blood Count 5.1 10^3/uL (4.0-11.0)
[2024-08-28 13:14] LABS: Estimated Average Glucose 111 mg/dL; Glycohemoglobin A1C 5.5 % (4.5-6.2)
[2024-08-28 13:37] LABS: Alanine Aminotransferase 14 U/L (14-59); Albumin Globulin Ratio 1.2; Albumin Level 3.9 g/dL (3.4-5.0); Alkaline Phosphatase 63 U/L (46-116); Anion Gap 10.9; Aspartate Amino Transferase 12 U/L (15-37); BUN Creatinine Ratio 21.6; Bilirubin Total 0.5 mg/dL (0.2-1.0); Calcium 8.6 mg/dL (8.5-10.1); Chloride 104 mmol/L (98-107); Chol HDL Ratio 2.1; Cholesterol 152 mg/dL (<=200); Estimated GFR (African America >60 (>=60 mL/min/1.73m^2); Estimated GFR (Non-African Ame >60 (>=60 mL/min/1.73m^2); Free T3 2.75 pg/mL (2.18-3.98); Globulin 3.2 g/dL; Glucose 88 mg/dL (74-106); HDL Cholesterol 73 mg/dL (40-60); Potassium 3.9 mmol/L (3.5-5.1); Sodium 142 mmol/L (136-145); Thyroid Stimulating Hormone 1.097 uIU/mL (0.358-3.740); Total Protein 7.1 g/dL (6.4-8.2); Triglycerides 40 mg/dL (<=150)
== END 2024-08-28 12:38 | disposition home or self-care (01) ==
LOC: LAB 12:37
PROVIDERS: PCP Family Medicine; Visit Provider Family Medicine
DX: Z00.00 Encounter for general adult medical examination without abnormal findings (principal); E28.2 Polycystic ovarian syndrome; E34.9 Endocrine disorder, unspecified
CPT/HCPCS: 36415; 80053; 80061; 82626; 82627; 83001; 83002; 83036; 84144; 84436; 84439; 84443; 84481; 84702; 85025

== ENCOUNTER 2024-11-22 15:50 | Outpatient (OUT) | payer OTHER, SELFPAY ==
--- NOTE | 2024-11-22 15:53 | US_ITS ---
The [address] [address] Patient Name: CARINA CANALES MRN: [id number] date: 1995 Sex: F Assigned Patient Location: US Current Patient Location: US Accession/Order Number: [id number] Exam Date: 11/22/2024 16:44 Report Date: 11/22/2024 16:47 At the request of: DEJAN LARSON DO Procedure: US OB transvaginal OB ultrasound. Reason for exam:Missed menses Comparison:None Technique: Transabdominal and transvaginal imaging of the uterus was obtained. Findings: No definitive gestational sac is noted. The endometrium appears heterogenous in echotexture with a small amount of presumed fluid present within the endometrial canal measuring 12 x 11 x 5 mm. A small endometrial cyst is also noted. No fibroid. Endometrium measures 12.6 mm. Trace amount of simple free fluid is seen within the cul-de-sac. Right ovary measures 2.3 x 1.5 x 2.0 cm. Left ovary measures 2.7 x 1.4 x 2.0 cm. No adnexal mass or cyst. Corpus luteum is noted involving the left ovary. US/US OB transvaginal Impression: No definitive gestational sac is noted. The endometrium appears heterogenous in echotexture with a small amount of fluid seen within the endometrial canal as well as a endometrial cyst. Findings are nonspecific. Differential considerations includes early IUP, miscarriage or possibly ectopic , however no definitive evidence of ectopic is seen such as adnexal mass or complex free fluid. Correlation with beta hCG trend and repeat ultrasound is recommended to confirm viability. Impression dictated by: Brent Jonas Jr., D.O. 11/22/2024 4:47 PM Dictation Location: [place] [address] Electronically authenticated by: [id number] Y Date: 11/22/2024 16:47
[2024-11-22 18:44] LABS: HCG Quantitative 264 mIU/mL
== END 2024-11-22 15:51 | disposition home or self-care (01) ==
LOC: US 15:50
PROVIDERS: PCP Family Medicine; Visit Provider Obstetrics & Gynecology
DX: N92.6 Irregular menstruation, unspecified (principal); N85.8 Other specified noninflammatory disorders of uterus
CPT/HCPCS: 36415; 76817; 84702

== ENCOUNTER 2024-11-24 10:23 | Outpatient (RCR) | payer OTHER, SELFPAY ==
[2024-11-24 11:35] LABS: HCG Quantitative 292 mIU/mL
[2024-11-27 09:01] LABS: HCG Quantitative 114 mIU/mL
== END 2024-12-18 10:55 | disposition home or self-care (01) ==
LOC: LAB 10:23
PROVIDERS: PCP Family Medicine; Visit Provider Obstetrics & Gynecology
DX: N92.6 Irregular menstruation, unspecified (principal)
CPT/HCPCS: 36415; 84702

== ENCOUNTER 2024-11-25 22:29 | Emergency (ER) | payer OTHER, SELFPAY ==
--- OUTSIDE RECORDS SUMMARY | 2024-11-25 22:34 | XMS_ITS | CCD ---
Author Organization [facility] Care Team Providers Care Legal Financial Specialist Name Role Phone NONE, XXXX Unavailable Unavailable [...] Unavailable DO Juan Cerna Primary Care Provider [phone] DO Juan Cerna Attending Provider HAWA Swartz Emergency Provider [phone] MD Gregorio Garcia Primary Care Provider [phone] Juan Swartz Admitting Unavailable Gregorio Garcia Primary Care Unavailable Juan Swartz Attending Unavailable Gregorio Garcia MD Primary Care Provider [phone] DEJAN VOSS Attending Unavailable Gregorio Garcia MD Primary Care Provider [phone] Allergies Allergy Classification Reported Allergen(s) Allergy Type Date of Onset Reaction(s) Facility (1 source) Bee/Wasp/Ant venom; Translations: [Bee Stings] [facility] adverse [facility] venom protein (honey bee) Drug allergy (disorder) 4 [facility] Repository (6 sources) Honey bee venom Propensity to adverse reactions 3 [facility] Medications Current Medications Medication Drug Class(es) Dates Sig (Normalized) Sig (Original) Paxson (No Known Home Meds) (1 source) Start: 10-17-2023 Paxson (No Known Home Meds) Active October 17, 2023 12:00am ondansetron 4 mg disintegrating oral tablet (6 sources) Serotonin-3 Receptor Antagonist Start: 10-17-2022 ondansetron ODT (Zofran-ODT) 4 MG disintegrating tablet 10/17/2022 Active penicillin v potassium 500 mg oral tablet (1 source) Start: 10-17-2023 take 500 mg by mouth twice daily Penicillin V Potassium Active 500 MG PO Twice daily October 17, 2023 12:00am Problems Problem Classification Problem Date Documented Date Episodic/Chronic Contraceptive and procreative management (2 sources) Patient encounter status; Translations: [Encounter for other procreative management] 08-22-2024 Episodic Fever of unknown origin (1 source) Fever, unspecified; Translations: [Fever, unspecified] Onset: 10-17-2023 Episodic Immunizations and screening for infectious disease (4 sources) Contact with and (suspected) exposure to other viral communicable diseases; Translations: [CONTCT EXPS OTH VIRL COMMUNICABL DZ] Onset: 02-26-2020 Episodic Other endocrine disorders (2 sources) Polycystic ovary syndrome; Translations: [Polycystic ovarian syndrome] 08-22-2024 Chronic Other endocrine disorders (2 sources) Disorder of endocrine system; Translations: [Endocrine disorder, unspecified] 08-22-2024 Episodic Other upper respiratory infections (2 sources) Streptococcal sore throat; Translations: [Streptococcal pharyngitis] Onset: 10-17-2023 10-17-2023 Episodic Residual codes; unclassified (1 source) Pain, unspecified; Translations: [Pain, unspecified] Onset: 10-17-2023 Episodic Results Test Name Value Interpretation Reference Range Facility [facility] PREG QUANT HCGon 025 HCG QUANTITATIVE 292 mIU/mL [facility] Comment on above: 5-50 0.2-1 WEEK 50-500 1-2 WEEKS 100-5,000 2-3 WEEKS 500-10,000 3-4 WEEKS 1,000-50,000 4-5 WEEKS 10,000-100,000 5-6 WEEKS 15,000-200,000 6-8 WEEKS 10,000-100,000 2-3 MONTHS [facility] OB TRANSVAGINALon [address] [place] [address] Ultrasound Report Signed Patient: YVONNE BAKER MR#: [id number] : 1995 Acct:[id number] Age/Sex: 29 / F ADM Date: 11/22/24 Loc: US Attending Dr: Dejan Voss D.O. Ordering Physician: Dejan Voss D.O. Date of Service: 11/22/24 Procedure(s): US OB transvaginal Accession Number(s): [id number] cc: Dejan Voss D.O.; Gregorio Garcia M.D. [place] [address] Patient Name: YVONNE BAKER MRN: [id number] date: 1995 Sex: F Assigned Patient Location: US Current Patient Location: US Accession/Order Number: [id number] Exam Date: 11/22/2024 16:44 Report Date: 11/22/2024 16:47 At the request of: DEJAN VOSS DO Procedure: US OB transvaginal OB ultrasound. Reason for exam:Missed menses Comparison:None Technique: Transabdominal and transvaginal imaging of the uterus was obtained. Findings: No definitive gestational sac is noted. The endometrium appears heterogenous in echotexture with a small amount of presumed fluid present within the endometrial canal measuring 12 x 11 x 5 mm. A small endometrial cyst is also noted. No fibroid. Endometrium measures 12.6 mm. Trace amount of simple free fluid is seen within the cul-de-sac. Right ovary measures 2.3 x 1.5 x 2.0 cm. Left ovary measures 2.7 x 1.4 x 2.0 cm. No adnexal mass or cyst. Corpus luteum is noted involving the left ovary. US/US OB transvaginal Impression: No definitive gestational sac is noted. The endometrium appears heterogenous in echotexture with a small amount of fluid seen within the endometrial canal as well as a endometrial cyst. Findings are nonspecific. Differential considerations includes early IUP, miscarriage or possibly ectopic , however no definitive evidence of ectopic is seen such as adnexal mass or complex free fluid. Correlation with beta hCG trend and repeat ultrasound is recommended to confirm viability. Impression dictated by: Brent Jonas Jr., D.O. 11/22/2024 4:47 PM Dictation Location: [place] [address] Electronically authenticated by: [id number] Y Date: 11/22/2024 16:47 Dictated By: Brent Jonas M.D. Signed By: 11/22/241649 DD/ 46 TD/TT: Steam Trap Man: [facility] Radiology, Radiologi MD kristian - 11/22/2024 [place] [address] Ultrasound Report Signed Patient: YVONNE BAKER MR#: [id number] : 1995 Acct:[id number] Age/Sex: 29 / F ADM Date: 11/22/24 Loc: US Attending Dr: Dejan Voss D.O. Ordering Physician: Dejan Voss D.O. Date of Service: 11/22/24 Procedure(s): US OB transvaginal Accession Number(s): [id number] cc: Dejan Voss D.O.; Gregorio Garcia M.D. The [place] [id number] Patient Name: YVONNE BAKER MRN: [facility]:[id number] date: 1995 Sex: F Assigned Patient Location: US Current Patient Location: US Accession/Order Number: [id number] Exam Date: 11/22/2024 16:44 Report Date: 11/22/2024 16:47 At the request of: DEJAN VOSS DO Procedure: US OB transvaginal OB ultrasound. Reason for exam:Missed menses Comparison:None Technique: Transabdominal and transvaginal imaging of the uterus was obtained. Findings: No definitive gestational sac is noted. The endometrium appears heterogenous in echotexture with a small amount of presumed fluid present within the endometrial canal measuring 12 x 11 x 5 mm. A small endometrial cyst is also noted. No fibroid. Endometrium measures 12.6 mm. Trace amount of simple free fluid is seen within the cul-de-sac. Right ovary measures 2.3 x 1.5 x 2.0 cm. Left ovary measures 2.7 x 1.4 x 2.0 cm. No adnexal mass or cyst. Corpus luteum is noted involving the left ovary. US/US OB transvaginal Impression: No definitive gestational sac is noted. The endometrium appears heterogenous in echotexture with a small amount of fluid seen within the endometrial canal as well as a endometrial cyst. Findings are nonspecific. Differential considerations includes early IUP, miscarriage or possibly ectopic , however no definitive evidence of ectopic is seen such as adnexal mass or complex free fluid. Correlation with beta hCG trend and repeat ultrasound is recommended to confirm viability. Impression dictated by: Brent Jonas Jr., AnaORed 11/22/2024 4:47 PM Dictation Location: [place] [address] Electronically authenticated by: [id number] Y Date: 11/22/2024 16:47 Dictated By: Brent Jonas M.D. Signed By: 11/22/24 1650 DD/ 1647 TD/TT: Steam Trap Man: [facility] Radiology Study observation (narrative) [facility] US OB TRANSVAGINALOrdered By : Radiologist Radiology on 11-22-2024 [facility] Work Phone: [facility] PREG QUANT HCGon 025 HCG QUANTITATIVE <1 mIU/mL [facility] Comment on above: 5-50 0.2-1 WEEK 50-500 1-2 WEEKS 100-5,000 2-3 WEEKS 500-10,000 3-4 WEEKS 1,000-50,000 4-5 WEEKS 10,000-100,000 5-6 WEEKS 15,000-200,000 6-8 WEEKS 10,000-100,000 2-3 MONTHS [facility] COVID-19 / Flu A/B / RSV PCR [...] Negative COVID19 Blank Space Cepheid Disclaimer The Cepheid Xpert Xpress CoV-2/Flu/RSV Plus has Cepheid Disclaimer not been FDA cleared or approved; [...] or Cepheid Disclaimer revoked sooner. PERFORMED BY: [facility] [address] [place] [address] PATHOLOGIST DRY CHAIN OFFBEARER ELADIO POWELL M.D. Normal [facility] Comment on above: Performed By: #### C EPHEID NEG, COVID19 FLU RSV, QS #### [facility] [address] Cepheid COVID PCR Negativeon 10-17-2023 SARS-CoV-2 (COVID-19) RNA MOR+probe Ql (Unsp spec) Negative Normal Negative [facility] Comment on above: Result Comment: This is a duplicate Cepheid Xpert Xpress CoV-2/Flu/RSV Plus RNA by RT-PCR result to be used for statistical tracking purpose only. PERFORMED BY: [place] [id number] PATHOLOGIST DRY CHAIN OFFBEARER ELADIO POWELL M.D. Performed By: #### C EPHEID NEG, COVID19 FLU RSV, QS #### [address] [address] [facility] Quick Strepon 10-17-2023 S. pyogenes Ag IA Ql (Unsp spec) Streptococcus pyogenes Ag [Presence] in Throat by Rapid immunoassay Positive for Group A Strep Antigen Reference range = Negative PERFORMED BY: [place] [address] PATHOLOGIST DRY CHAIN OFFBEARER ELADIO POWELL M.D. Normal [facility] Comment on above: Performed By: #### C EPHEID NEG, COVID19 FLU RSV, QS #### [place] [id number] [facility] Streptococcus pyogenes antig en detectionOrdered By: Juan Swartz on 10-17-2023 S. pyogenes Ag Ql (Unsp spec) [facility] Basophils Auto (Bld) [#/Vol] Ordered By: Juan Cerna on 05-06-2022 Basophils (Bld) [#/Vol] 0.0 10*3/uL 0.0-0.2 [facility] Basophils/100 WBC Auto (Bld) Ordered By: Juan Cerna on 05-06-2022 Basophils/100 WBC (Bld) 0.6 % . [facility] Body fluid albumin measureme nt (mass/volume)Ordered By: Juan Cerna on 05-06-2022 Albumin (Body fld) [Mass/Vol] 4.4 g/dL 3.2-5.5 [facility] Cholesterol [Mass/volume] in Serum or PlasmaOrdered By: Juan Cerna on 05-06-2022 Cholesterol [Mass/Vol] 191 mg/dL 140-200 [facility] Comment on above: Chol less than 200 m g/dl low riskChol 201-239 mg/dl borderline riskChol 240 mg/dl and greater high risk Cholesterol in LDL Calc [Mas s/Vol]Ordered By: Juan Cerna on 05-06-2022 Cholesterol in LDL [Mass/Vol] 103 mg/dL 0-100 [facility] Comment on above: LDL ATP III CLASSIFI CATIONLDL less than 100 mg/dL OptimalLDL 100-129 mg/dL Near or above optimalLDL 130-159 mg/dL Borderline highLDL 160-189 mg/dL HighLDL greater than 189 mg/dL Very high Cholesterol in VLDL Calc [Ma ss/Vol]Ordered By: Juan Cerna on 05-06-2022 Cholesterol in VLDL [Mass/Vol] 7 mg/dL [facility] Creatinine and Glomerular fi ltration rate.predicted panel (S/P/Bld)Ordered By: Juan Cerna on 05-06-2022 Creatinine [Mass/Vol] 0.63 mg/dL 0.44-1.03 [facility] Eosinophils Auto (Bld) [#/Vo l]Ordered By: Juan Cerna on 05-06-2022 Eosinophils (Bld) [#/Vol] 0.1 10*3/uL 0.0-0.45 [facility] Eosinophils/100 WBC Auto (Bl d)Ordered By: Juan Cerna on 05-06-2022 Eosinophils/100 WBC (Bld) 0.7 % . [facility] Erythrocyte distribution wid th Auto (RBC) [Ratio]Ordered By: Juan Cerna on 05-06-2022 Erythrocyte distribution width (RBC) [Ratio] 13.3 % 11.9-15.3 [facility] Estimated glomerular filtrat ion rate (GFR) non- AmericanOrdered By: Juan Cerna on 05-06-2022 GFR/1.73 sq M.predicted among non-blacks MDRD (S/P/Bld) [Vol rate/Area] > 60 mL/Min [facility] Globulin Calc (S) [Mass/Vol] Ordered By: Juan Cerna on 05-06-2022 Globulin (S) [Mass/Vol] 2.6 g/dL [facility] Hematocrit Auto (Bld) [Volum e fraction]Ordered By: Juan Cerna on 05-06-2022 Hematocrit (Bld) [Volume fraction] 42.9 % 34.0-46.4 [facility] Hemoglobin [Mass/volume] in BloodOrdered By: Juan Cerna on 05-06-2022 Hemoglobin (Bld) [Mass/Vol] 13.8 g/dL 11.8-15.4 [facility] Laboratory - Hematology and Cell countsOrdered By: Juan Cerna on 05-06-2022 Nucleated RBC/100 WBC (Bld) [Ratio] 0.1 % 0-0.5 [facility] Leukocytes [#/volume] in Blo od by Automated countOrdered By: Juan Cerna on 05-06-2022 WBC (Bld) [#/Vol] 7.6 10*3/uL 4.5-11.0 [facility] Lymphocytes Auto (Bld) [#/Vo l]Ordered By: Juan Cerna on 05-06-2022 Lymphocytes (Bld) [#/Vol] 2.6 10*3/uL 1.00-4.8 [facility] Lymphocytes/100 WBC Auto (Bl d)Ordered By: Juan Cerna on 05-06-2022 Lymphocytes/100 WBC (Bld) 34.7 % . [facility] MCH Auto (RBC) [Entitic mass ]Ordered By: Juan Cerna on 05-06-2022 MCH (RBC) [Entitic mass] 29.7 pg 24.7-34.3 [facility] MCHC Auto (RBC) [Mass/Vol]Or dered By: Juan Cerna on 05-06-2022 MCHC (RBC) [Mass/Vol] 32.2 g/dL 32.0-35.0 [facility] MCV Auto (RBC) [Entitic vol] Ordered By: Juan Cerna on 05-06-2022 MCV (RBC) [Entitic vol] 92.3 fL 80-100 [facility] Monocytes Auto (Bld) [#/Vol] Ordered By: Juan Cerna on 05-06-2022 Monocytes (Bld) [#/Vol] 0.5 10*3/uL 0.0-0.8 [facility] Monocytes/100 WBC Auto (Bld) Ordered By: Juan Cerna on 05-06-2022 Monocytes/100 WBC (Bld) 6.1 % . [facility] Neutrophils Auto (Bld) [#/Vo l]Ordered By: Juan Cerna on 05-06-2022 Neutrophils (Bld) [#/Vol] 4.4 10*3/uL 1.8-7.7 [facility] Neutrophils/100 WBC Auto (Bl d)Ordered By: Juan Cerna on 05-06-2022 Neutrophils/100 WBC (Bld) 57.9 % . [facility] No Panel InformationOrdered By: Juan Cerna on 05-06-2022 Estimated GFR () > 60 mL/Min [facility] Comment on above: GFR estimated refere nce range: According to KDOQI guidelines, <60 ml/min/1.73m2 is sufficient to diagnose a patient with chronic kidney disease. Pharmacy Creatinine Clearance (Chem N/A [facility] Platelet mean volume Auto (B ld) [Entitic vol]Ordered By: Juan Cerna on 05-06-2022 Platelet mean volume (Bld) [Entitic vol] 9.9 fL 6.3-10.7 [facility] Platelets Auto (Bld) [#/Vol] Ordered By: Juan Cerna on 05-06-2022 Platelets (Bld) [#/Vol] 253 10*3/uL 150-450 [facility] Protein [Mass/volume] in Ser um or PlasmaOrdered By: Juan Cerna on 05-06-2022 Protein [Mass/Vol] 7.0 g/dL 6.1-7.9 [facility] RBC Auto (Bld) [#/Vol]Ordere d By: Juan Cerna on 05-06-2022 RBC (Bld) [#/Vol] 4.65 10*6/uL 3.60-5.00 [facility] Serum or plasma alanine cochran otransferase measurement without P-5'-P (enzymatic activiOrdered By: Juan Cerna on 05-06-2022 ALT No additional P-5'-P [Catalytic activity/Vol] 14 U/L 10 [facility] Serum or plasma albumin/glob ulin mass ratioOrdered By: Juan Cerna on 05-06-2022 Albumin/Globulin [Mass ratio] 1.7 {ratio} [facility] Serum or plasma alkaline jeremy sphatase measurement (enzymatic activity/volume)Ordered By: Juan Cerna on 05-06-2022 ALP [Catalytic activity/Vol] 42 U/L 32-92 [facility] Serum or plasma anion gap de terminationOrdered By: Juan Cerna on 05-06-2022 Anion gap [Moles/Vol] 13.3 mmol/L 6.0-15.0 [facility] Serum or plasma aspartate am inotransferase measurement (enzymatic activity/volume)Ordered By: Juan Cerna on 05-06-2022 AST [Catalytic activity/Vol] 17 U/L [facility] Serum or plasma calcium crystal urement (mass/volume)Ordered By: Juan Cerna on 05-06-2022 Calcium [Mass/Vol] 9.9 mg/dL 8.2-10.2 [facility] Serum or plasma chloride jenna surement (moles/volume)Ordered By: Juan Cerna on 05-06-2022 Chloride [Moles/Vol] 100 mmol/L 95-114 [facility] Serum or plasma glucose crystal urement (mass/volume)Ordered By: Juan Cerna on 05-06-2022 Glucose [Mass/Vol] 81 mg/dL 70-100 [facility] Comment on above: ADA recommended refe rence rangeRandom Glucose Reference Range is dependent on time and content of last meal. Glucose of more than 200 mg/dL in a nonstressed, ambulatory subject supports the diagnosis of Diabetes Mellitus. Serum or plasma high density lipoprotein (HDL) cholesterol measurementOrdered By: Juan Cerna on 05-06-2022 Cholesterol in HDL [Mass/Vol] 80 mg/dL 35-85 [facility] Comment on above: HDL CHOL ATP-III CLA SSIFICATION Cardiovascular RiskHDL > or equal to 60 mg/dL LOWHDL < 40 mg/dL HIGH Serum or plasma potassium me asurement (moles/volume)Ordered By: Juan Cerna on 05-06-2022 Potassium [Moles/Vol] 3.6 mmol/L 3.5-5.1 [facility] Serum or plasma sodium measu rement (moles/volume)Ordered By: Juan Cerna on 05-06-2022 Sodium [Moles/Vol] 136 mmol/L 136-146 [facility] Serum or plasma total biliru bin measurement (mass/volume)Ordered By: Juan Cerna on 05-06-2022 Bilirubin [Mass/Vol] 0.9 mg/dL 0.3-1.2 [facility] Serum or plasma total carbon dioxide measurement (moles/volume)Ordered By: Juan Cerna on 05-06-2022 CO2 [Moles/Vol] 26.3 mmol/L 22.0-30.0 [facility] Serum or plasma total choles terol/high density lipoprotein (HDL) cholesterol mass ratOrdered By: Juan Cerna on 05-06-2022 Cholesterol.total/Cho lesterol in HDL [Mass ratio] 2.4 {ratio} <5.0 [facility] Serum or plasma urea nitroge n measurement (mass/volume)Ordered By: Juan Cerna on 05-06-2022 Urea nitrogen [Mass/Vol] 14 mg/dL 9-23 [facility] Triglyceride [Mass/volume] i n Serum or PlasmaOrdered By: Juan Cerna on 05-06-2022 Triglyceride [Mass/Vol] 39 mg/dL 35-149 [facility] Comment on above: TRIG ATP III CLASSIF ICATIONTRIG less than 150 mg/dL NormalTRIG 150-199 mg/dL Borderline highTRIG 200-500 mg/dL High TRIG greater than 500 mg/dL Very highStandard traceable to the Center for Disease Conrtrol and Prevention (CDC) test method. COVID-19 PCRon 02-27-2020 SARS-CoV-2, MOR Not Detected Normal Not Detected [facility] Comment on above: Result Comment: This test was developed and its performance characteristics determined by [employer]. This test has not been FDA cleared [...] assay. Performed By: #### C VDPCR #### [facility] [address] [place] [address] Edie De La Paz Coding Summary.on 09-12-2017 Coding Summary. CODING DATE: 018 [facility] STATUS: Home (Routine DC) PAYOR: Self [...] Revised Date Saved: 09/12/2017 10:53 am Normal [facility] Acetamnphn Lvlon 09-10-2017 Acetaminophen mass conc 14 microgram/mL Low 15-30 [facility] Comment on above: Performed By: #### 2 [id number], [id number], [id number] ####[address] [address] Auto Diffon 09-10-2017 Basophils Auto #/vol (Bld) 0.8 % Normal 0.0-2.0 [facility] Comment on above: Order Comment: Order Added by Discern Expert. Performed By: #### 2 [id number], [id number], [id number] ####[address] [address] Basophils/Leukocytes Auto Pure number fraction (Bld) 0.1 E9/L Normal 0.0-0.2 [facility] Comment on above: Order Comment: Order Added by Discern Expert. Performed By: #### 2 [id number], [id number], [id number] ####[address] [address] Eosinophils/100 WBC Auto (Bld) 0.2 % Normal 0.0-8.0 [facility] Comment on above: Order Comment: Order Added by Discern Expert. Performed By: #### 2 [id number], [id number], [id number] ####[address] [address] Eosinophils/Leukocyte s Auto Pure number fraction (Bld) 0.0 E9/L Normal 0.0-0.5 [facility] Comment on above: Order Comment: Order Added by Discern Expert. Performed By: #### 2 [id number], [id number], [id number] ####[address] [address] Lymphocytes/100 WBC Auto (Bld) 29.7 % Normal 14.0-50.0 [facility] Comment on above: Order Comment: Order Added by Discern Expert. Performed By: #### 2 [id number], [id number], [id number] ####[address] [address] Lymphocytes/Leukocyte s Auto Pure number fraction (Bld) 2.0 E9/L Normal 1.0-4.0 [facility] Comment on above: Order Comment: Order Added by Discern Expert. Performed By: #### 2 [id number], [id number], [id number] ####[address] [address] Monocytes/100 WBC Auto (Bld) 4.7 % Normal 4.0-14.0 [facility] Comment on above: Order Comment: Order Added by Discern Expert. Performed By: #### 2 2254519, [id number], 6506801 ####[address] [address] Monocytes/Leukocytes Auto Pure number fraction (Bld) 0.3 E9/L Normal 0.2-1.0 [facility] Comment on above: Order Comment: Order Added by Discern Expert. Performed By: #### 2 3327721, [id number], [id number] ####[address] [address] Neutrophils/100 WBC Auto (Bld) 64.6 % Normal 36.0-75.0 [facility] Comment on above: Order Comment: Order Added by Discern Expert. Performed By: #### 2 [id number], [id number], 7169533 ####[address] [address] Neutrophils/Leukocyte s Auto Pure number fraction (Bld) 4.4 E9/L Normal 2.0-7.5 [facility] Comment on above: Order Comment: Order Added by Discern Expert. Performed By: #### 2 [id number], [id number], 0741336 ####[address] [address] B hCG Qualon 09-10-2017 Beta hCG Ql Negative Normal [facility] Comment on above: Performed By: #### 2 9455546, [id number], 2774354 ####[address] [address] BMPon 09-10-2017 Anion gap 3 molar conc 14 mmol/L Normal 6-16 [facility] Comment on above: Performed By: #### 2 6967079, 81486593, [id number] ####[address] [place] [address] Calcium mass conc 9.3 mg/dL Normal 8.9-11.1 [facility] Comment on above: Performed By: #### 2 [id number], [id number], 0400376 ####[facility] [address] [place] [address] Chloride molar conc 100 mmol/L Low 101-111 [facility] Comment on above: Performed By: #### 2 5296215, [id number], 0783712 ####[facility] [address] [place] [address] CO2 molar conc 23 mmol/L Normal 21-31 [facility] Comment on above: Performed By: #### 2 2070860, 77836949, 8934084 ####[facility] [address] [place] [address] Creatinine mass conc 0.8 mg/dL Normal 0.5-1.3 [facility] Comment on above: Performed By: #### 2 1099952, 28446942, 2134467 ####[facility] [address] [place] [address] Glucose mass conc 105 mg/dL Normal 55-199 [facility] Comment on above: Result Comment: If t his glucose result represents a fasting glucose, interpretation should refer to the following reference range: 55-99 mg/dL Performed By: #### 2 [id number], [id number], 0527306 ####[facility] [address] [place] [address] Potassium molar conc 2.9 mmol/L Low 3.5-5.3 [facility] Comment on above: Performed By: #### 2 8073801, 87753885, 3216229 ####[facility] [address] [place] [address] Sodium molar conc 134 mmol/L Low 135-145 [facility] Comment on above: Performed By: #### 2 1101853, 60591361, 8776066 ####[facility] [address] [place] [address] Urea nitrogen mass conc 11 mg/dL Normal 5-21 [facility] Comment on above: Performed By: #### 2 7722428, 03371520, 2450841 ####[place] [address] Urea nitrogen/Creatinine mass ratio 14 No Units Normal 10-20 [facility] Comment on above: Performed By: #### 2 6674578, 44759558, 0375111 ####[place] [id number] CBC w/ Auto Diffon 8 Erythrocyte distribution width Auto Ratio (RBC) 13.7 % Normal 10.9-14.2 [facility] Comment on above: Performed By: #### 2 6550771, 07029801, 9429385 ####[place] [address] Hematocrit Auto Volume Fraction (Bld) 41.6 % Normal 34.0-46.0 [facility] Comment on above: Performed By: #### 2 9559768, 09926411, 5375401 ####[place] [address] Hemoglobin mass conc (Bld) 14.4 g/dL Normal 12.0-16.0 [facility] Comment on above: Performed By: #### 2 9696937, 55963235, 6920055 ####[place] [address] MCH Auto Entitic mass (RBC) 30.9 pg Normal 27.0-34.0 [facility] Comment on above: Performed By: #### 2 3859464, 70881937, 0588247 ####[place] [address] MCHC Auto mass conc (RBC) 34.5 g/dL Normal 31.4-39.3 [facility] Comment on above: Performed By: #### 2 7241140, 35828564, 4172706 ####[address] [address] MCV Auto Entitic volume (RBC) 89.5 fL Normal 80.0-100.0 [facility] Comment on above: Performed By: #### 2 [id number], [id number], [id number] ####[address] [address] Platelet mean volume Auto Entitic volume (Bld) 9.6 fL Normal 6.4-10.8 [facility] Comment on above: Performed By: #### 2 [id number], [id number], [id number] ####[place] [id number] Platelets Auto #/vol (Bld) 291.0 E9/L Normal 150.0-500. 0 [facility] Comment on above: Performed By: #### 2 [id number], [id number], [id number] ####[place] [address] RBC Auto #/vol (Bld) 4.6 E12/L Normal 4.3-5.9 [facility] Comment on above: Performed By: #### 2 [id number], [id number], [id number] ####[place] [id number] WBC corrected for nucl RBC Auto #/vol (Bld) 6.8 E9/L Normal 4.0-11.0 [facility] Comment on above: Performed By: #### 2 [id number], [id number], [id number] ####[place] [address] ED Clinical Summaryon 2017 ED Clinical Summary (Inserted Image. Mireya ble to display) [place] [id number] ED Clinical SummaryPerson Information Name: YVONNE GOODEN/Carlos AlbertoLyssa Age: 22 Years : 1995 12:00 AM Sex: Female Language:[place] Islander PCP: NONE, XXXX Marital Status:Single Visit Id: [...] PM 09/10/2017 3:46 PM 09/10/2017 3:46 PM ADDRESS:[address] [place] [address] DOC NOTES: Patient: YVONNE GOODEN Age: 22 [...] volume (mL): 1,000, Bolus Dose: 1,000 mLDocumented MedicationsDocumentedFLUoxet ine 10 mg Cap: Refills(s) 0TriNessa oral tablet: Refill(s) 0. Past Medical/ Family/ Social History Medical history: ResolvedDepression ([id number]): Resolved.. Surgical history: No active procedure history items have been selected or recorded.. Family history: No family history items have been selected or recorded.. Social history: Social & Psychosocial GlhgzjZfqafrc20/26/2017 Risk Assessment: Denies Alcohol Use09/10/2017 Use: Current Frequency: 1-2 times per month Has alcohol use interfered with work or home life? No Do you ever drink more than intended? No Has anyone been hurt or at risk by your drinking? No Ready to change: NoSubstance Abuse09/10/2017 Use: Current Comment: denied - 09/10/2017 11:41 - [place], DqlzgSpxwvdo17/26/2017 Risk Assessment: Denies Tobacco Use. Problem list: [...] Auto 64.6 % Lymph Auto 29.7 % [place] Auto 4.7 % Eos Auto 0.2 % Basophil Auto 0.8 % Neutro Absolute 4.4 E9/L Lymph Absolute 2.0 E9/L [place] Absolute 0.3 E9/L Eos Absolute 0.0 E9/L [...] Impression and Plan Diagnosis General medical (PNED [id number], Reason For Visit, Emergency medicine, Medical) Complaint of Intentional drug overdose (PNED [id number], Reason For Visit, Emergency medicine, Medical) Intentional drug overdose (UMM04-KD T50.902A, Discharge, Emergency medicine, Medical) Suicidal ideation (EMJ34-YB R45.851, Discharge, Emergency medicine, Medical) Plan Condition: Improved, Stable. Disposition: Discharged: to home. Patient was given the following educational materials: Nontoxic Ingestion, Poisoning Information, Adult, Suicidal Feelings: How to Help Yourself, Suicidal Feelings: How to Help Yourself, Poisoning Information, Adult, Nontoxic Ingestion. Follow up with: ; [facility] In 3 days 09/13/2017. Counseled: Patient, Regarding [...] Adult; Nontoxic Ingestion Follow up:With: Address: When: [facility] In 3 days 09/13/2017 DIAGNOSIS:Intentional drug overdose; Suicidal ideation Normal [facility] ED Note-Nursingon 09-10-2017 ED Note-Nursing pt reports [...] notified pt denied needs getting dressed Normal [facility] ED Note-Physicianon 09-10-19 ED Note-Physician Patient: JEREMIE [...] volume (mL): 1,000, Bolus Dose: 1,000 mLDocumented MedicationsDocumentedFLUoxet ine 10 mg Cap: Refills(s) 0TriNessa oral tablet: Refill(s) 0. Past Medical/ Family/ Social History Medical history: ResolvedDepression ([id number]): Resolved.. Surgical history: No active procedure history items have been selected or recorded.. Family history: No family history items have been selected or recorded.. Social history: Social & Psychosocial HpzccbKwfwhyd74/26/2017 Risk Assessment: Denies Alcohol Use09/10/2017 Use: Current [...] Auto 64.6 % Lymph Auto 29.7 % [place] Auto 4.7 % Eos Auto 0.2 % Basophil Auto 0.8 % Neutro Absolute 4.4 E9/L Lymph Absolute 2.0 E9/L [place] Absolute 0.3 E9/L Eos Absolute 0.0 E9/L [...] Impression and Plan Diagnosis General medical (PNED [id number], Reason For Visit, Emergency medicine, Medical) Complaint of Intentional drug overdose (PNED [id number], Reason For Visit, Emergency medicine, Medical) Intentional drug overdose (OXS56-QV T50.902A, Discharge, Emergency medicine, Medical) Suicidal ideation (GLA94-HM R45.851, Discharge, Emergency medicine, Medical) Plan Condition: Improved, Stable. Disposition: Discharged: to home. Patient was given the following educational materials: Nontoxic Ingestion, Poisoning Information, Adult, Suicidal Feelings: How to Help Yourself, Suicidal Feelings: How to Help Yourself, Poisoning Information, Adult, Nontoxic Ingestion. Follow up with: ; [facility] In 3 days 09/13/2017. Counseled: Patient, Regarding diagnosis, Regarding diagnostic results, Regarding treatment plan, Regarding prescription, Patient indicated understanding of instructions. Notes: Return to the ER if condition changes or worsens or if you have any other concerns. Otherwise see your family doctor for follow up.. Normal [facility] Comment on above: Result Comment: Elec tronically Signed By: Mirza Hogan DO\.br\Date and Time Signed: 09/10/17 15:41 [facility] ED Patient Education Noteon 09-10-2017 ED Patient [...] day. It is best if it is cpay-fv-wpds. Remember, they will want to help you.? [...] your local emergency services (911 in the [place]).? Call a suicide hotline:? 0-547-947-TALK ( ) in the [place].? 7-297-SYNPJDW ( ) in the [place].? in the [place] for [place]amian-speaking counselors.? 8-342-928-4TTY ( ) in the [place] for TTY users.? Visit the following websites for information and help:? National Suicide Prevention Lifeline: www.suicidepreventionlifelin e.org? Hopeline: www.hopeline.Caterna? [place] Foundation for Suicide Prevention: www.afsp.org? For lesbian, hollis, bisexual, transgender, or questioning youth, contact The Eloy Project:? 7-781-0-U-ELOY ( ) in the [facility].? www.thetrevorproject.org? In [place], treatment resources are listed in each province with listings available under The [employer] Health Services or similar titles. Another source for Crisis Centres by Province is located at http://www.suicideprevention .ca/ls-fertok-siv/find-a-cri gel-xibrlq-qlx/crisis-centre sDocument Released: 01/09/2004 Document Revised: 09/26/2012 Document Reviewed: 10/30/2014ExitCare? Patient Information ?2015 [employer]. This information is not intended to replace [...] 09/26/2012 Document Reviewed: 08/05/2009ExitCare? Patient Information ?2015 [employer]. This information is not intended to replace [...] poisoning are: ? Medicines, including prescription medicines, dnlu-arn-bdthkio pain medicines, vitamins, iron pills, and herbal supplements.? Cleaning or laundry products.? Wallula and paint thinner.? [place] or insect killers.? Perfume, hair spray, or nail products.? Alcohol.? Plants, such as philodendron, poinsettia, oleander, castor baker, cactus, and tomato plants.? Batteries.? Furniture swedish.? Drain stage set designer.? Antifreeze or other automotive products.? Gasoline, aqueduct and reservoir keeper fluid, or lamp oil.? Carbon monoxide gas from furnaces or automobiles.? Toxic fumes from the burning of plastics or certain other materials.WHAT ARE SOME FIRST-AID MEASURES FOR POISONING?The local poison control center must be contacted whenever a person may have been exposed to poison. The poison flight control manager will often give a set of directions [...] to identify the medicine to the poison flight control manager.?? Get away from the area where exposure [...] Keep all dangerous household products (such as aqueduct and reservoir keeper fluid, paint thinner and remover, gasoline, and antifreeze) in locked cabinets. ? Do not mix different household chemicals with each other.? Use protective equipment (gloves, goggles, masks, aprons) as needed when using chemicals or stage set designer.? Install a carbon monoxide detector in your [...] to find the number.The local emergency services (911 in [place] must be contacted if a [...] Revised: 11/19/2014 Document Reviewed: 06/21/2013ExitCare? Patient Information ?2015 [employer]. This information is not intended to replace advice given to you by your health care provider. Make sure you discuss any questions you have with your health care provider. Normal [facility] ED Patient Summaryon 018 ED Patient Summary (Inserted Image. Mireya ble to display) [place] [id number] Patient Discharge Instructions Person Information Name: HERON GOODENAshley Lopez Age: 22 Years Date: 09/10/2017 11:11 AMDischarge Diagnosis: Intentional drug overdose; Suicidal ideation Primary Care Physician: NONE, XXXX Provider InformationPrimary Provider: Johanna Hogan DO Regional Education Coordinator:None The exam and treatment you received in the Emergency Department were for an urgent problem and are not intended as complete care. It is important that you follow up with a doctor, nurse practitioner, or physician?s stores assistant for ongoing care. If your symptoms become worse or you do not improve as expected and you are unable to reach your usual health care provider, you should return to the Emergency Department. We are available 24 hours a day. YVONNE GOODEN has been given the following list of patient education materials, prescriptions and follow-up instructions: Follow-up Instructions:With: Address: When: [facility] In 3 days 09/13/2017 In the event [...] Comment: Pharmacy Information: Thank you for choosing [facility] Patient Education Materials: Suicidal Feelings, How [...] day. It is best if it is henk-zg-apxc. Remember, they will want to help you.? [...] your local emergency services (911 in the [place]).? Call a suicide hotline:? 8-850-780-TALK ( ) in the [place].? 4-782-LJEGDIP ( ) in the [place].? in the [place] for Bahamian-speaking counselors.? 2-111-509-4TTY ( ) in the [place] for TTY users.? Visit the following websites for information and help:? National Suicide Prevention Lifeline: www.suicidepreventionlifelin e.org? Hopeline: www.hopeline.com? [place] Foundation for Suicide Prevention: www.afsp.org? For lesbian, hollis, bisexual, transgender, or questioning youth, contact The Eloy Project:? 3-161-4-U-ELOY ( ) in the [place].? www.theNafasi Systemsvorproject.org? In [place], treatment resources are listed in each province with listings available under The [employer] Services or similar titles. Another source for Crisis Centres by Province is located at http://www.suicideprevention .ca/jx-tqlted-irt/find-a-cri bzi-uonqyi-jvn/crisis-centre sDocument Released: 01/09/2004 Document Revised: 09/26/2012 Document Reviewed: 10/30/2014ExitCare? Patient Information ?2015 [employer]. This information is not intended to replace [...] poisoning are: ? Medicines, including prescription medicines, ijig-gtm-bgflgvl pain medicines, vitamins, iron pills, and herbal supplements.? Cleaning or laundry products.? Wallula and paint thinner.? [place] or insect killers.? Perfume, hair spray, or nail products.? Alcohol.? Plants, such as philodendron, poinsettia, oleander, castor baker, cactus, and tomato plants.? Batteries.? Furniture swedish.? Drain stage set designer.? Antifreeze or other automotive products.? Gasoline, aqueduct and reservoir keeper fluid, or lamp oil.? Carbon monoxide gas from furnaces or automobiles.? Toxic fumes from the burning of plastics or certain other materials.WHAT ARE SOME FIRST-AID MEASURES FOR POISONING?The local poison control center must be contacted whenever a person may have been exposed to poison. The poison flight control manager will often give a set of directions [...] to identify the medicine to the poison flight control manager.?? Get away from the area where exposure [...] Keep all dangerous household products (such as aqueduct and reservoir keeper fluid, paint thinner and remover, gasoline, and antifreeze) in locked cabinets. ? Do not mix different household chemicals with each other.? Use protective equipment (gloves, goggles, masks, aprons) as needed when using chemicals or stage set designer.? Install a carbon monoxide detector in your [...] to find the number.The local emergency services (911 in [place] must be contacted if a [...] 11/19/2014 Document Reviewed: 06/21/2013ExitCare? Patient Information ?2014 [employer]. This information is not intended to replace [...] 09/26/2012 Document Reviewed: 08/05/2009ExitCare? Patient Information ?2014 [employer]. This information is not intended to replace advice given to you by your health care provider. Make sure you discuss any questions you have with your health care provider.GIACOMO Barrios ALICYN D , have received the following patient education materials/instructions and have verbalized understanding: Patient Education Materials: Suicidal Feelings: How to Help Yourself; Poisoning Information, Adult; Nontoxic Ingestion Follow-up Instructions: With: Address: When: [facility] In 3 days 09/13/2017 Prescriptions: Patient Signature Date Clinician/Nurse Signature Date 09/10/17 15:46:57 Normal [facility] Ethanolon 09-10-2017 Ethanol mass conc mg/dL Normal <=7 [facility] Comment on above: Performed By: #### 2 [id number], [id number], [id number] ####[facility] [address] [place] [address] Hep Func Panelon 09-10-2017 BILIRUBIN.NON-GLUCURO NIDATED:MSCNC:PT:SER/ PLAS:QN: UTC Abnormal 0.1-0.9 [facility] Comment on above: Result Comment: Resu lt verified by Discern Rule. Performed result UTC (Unable to Calculate) was sent as an Alpha code due the inability to calculate a valid numeric value. Performed By: #### 2 [id number], [id number], [id number] ####[facility] [address] [place] [address] Bilirubin.direct mass conc mg/dL Normal 0.1-0.4 [facility] Comment on above: Performed By: #### 2 [id number], [id number], [id number] ####[facility] [address] [place] [address] Albumin mass conc 4.7 g/dL Normal 3.3-5.0 [facility] Comment on above: Performed By: #### 2 7530471, [id number], 3601835 ####[address] [address] Albumin mass conc 1.4 g/dL Normal 1.1-2.2 [facility] Comment on above: Performed By: #### 2 [id number], [id number], 8152744 ####[address] [address] ALP enzyme act/vol 46 Int._Unit/L Normal 21-98 [facility] Comment on above: Performed By: #### 2 [id number], [id number], 8749904 ####[address] [address] ALT No additional P-5'-P enzyme act/vol 18 Int._Unit/L Normal 6-46 [facility] Comment on above: Performed By: #### 2 [id number], [id number], 1976568 ####[address] [address] AST enzyme act/vol 24 Int._Unit/L Normal 5-43 [facility] Comment on above: Performed By: #### 2 [id number], [id number], 6812125 ####[address] [address] Bilirubin mass conc 0.6 mg/dL Normal 0.0-1.1 [facility] Comment on above: Performed By: #### 2 5465861, [id number], 9138220 ####[place] [address] [place] [address] Globulin Calculated mass conc (S) 3.4 g/dL Normal 1.4-4.0 [facility] Comment on above: Performed By: #### 2 8833187, 36354139, 5088833 ####[facility] [address] [place] [address] Protein mass conc 8.1 g/dL High 6.0-7.8 [facility] Comment on above: Performed By: #### 2 3698486, 44146736, 8265645 ####[facility] [address] [place] [address] Lipase Levelon 09-10-2017 Lipase enzyme act/vol 17 unit/L Normal 13-[address] [facility] Comment on above: Performed By: #### 2 [id number], 53733048, 2186591 ####[address] [address] Salicylateon 09-10-2017 Salicylates mass conc mg/dL Low 6-[address] [facility] Comment on above: Performed By: #### 2 [id number], [id number], 9378218 ####[facility] [address] [place] [address] U BetaHcg Qualon 09-10-2017 HCG.beta subunit molar conc (U) Negative Normal [facility] Comment on above: Performed By: #### 2 [id number] ####[facility] [address] [place] [address] U Drug Screenon 09-10-2017 Amphetamines Screen method >1000 ng/mL Ql (U) Negative Normal Negative [facility] Comment on above: Result Comment: Nega tive Cutoff: <1000 ng/mL Performed By: #### 2 [id number], 12030465, 4846599 ####[facility] [address] [place] [address] Barbiturates Screen Ql (U) Negative Normal Negative [facility] Comment on above: Result Comment: Nega tive Cutoff: <200 ng/mL Performed By: #### 2 4623942, 84230617, 0285064 ####[facility] [address] [place] [address] Benzodiazepines Screen Ql (U) Negative Normal Negative [facility] Comment on above: Result Comment: Nega tive Cutoff: <200 ng/mL Performed By: #### 2 1555813, 59721342, 5348901 ####[facility] [address] [place] [address] Cocaine Ql (U) Negative Normal Negative [facility] Comment on above: Result Comment: Nega tive Cutoff: <300 ng/mL Performed By: #### 2 9761837, 18449435, 3323632 ####[facility] [address] [place] [address] Opiates Screen Ql (U) Negative Normal Negative Fis [facility] Comment on above: Result Comment: Nega tive Cutoff: <300 ng/mL Performed By: #### 2 [id number], 10352753, 4391531 ####[facility] [address] [place] [address] Phencyclidine Screen method >25 ng/mL Ql (U) Negative Normal Negative [facility] Comment on above: Result Comment: Nega tive Cutoff: <25 ng/mLThese drug screen results are to be used for medical (i.e., treatment) purposes only. Unconfirmed drug screening results must not be used for non-medical purposes (e.g., employment testing, legal testing). Performed By: #### 2 [id number], 85633025, 7136202 ####[facility] [address] [place] [address] Tetrahydrocannabinol Screen method >50 ng/mL Ql (U) Negative Normal Negative [facility] Comment on above: Result Comment: Nega tive Cutoff: <50 ng/mL Performed By: #### 2 4919053, 53100963, 6434935 ####[facility] [address] [place] [address] eGFRon 09-10-2017 GFR/1.73 sq M predicted among blacks MDRD vol rate/area (S/P/Bld) mL/min/{1.73_m2} Normal >=59 [facility] Comment on above: Order Comment: Order added by Discern Expert. Result Comment: eGFR is race adjusted. AA=. Performed By: #### 2 1235154, 29153654, 6868925 ####[facility] [address] [place] [address] GFR/1.73 sq M predicted among non-blacks MDRD vol rate/area (S/P/Bld) mL/min/{1.73_m2} Normal >=59 [facility] Comment on above: Order Comment: Order added by Discern Expert. Result Comment: Cost Recorder lona kidney disease could be indicated at eGFR's of less than 60 mL/min/1.73m2. Kidney failure is indicated at less than 15 mL/min/1.73m2. Performed By: #### 2 [id number], [id number], 2208737 ####[facility] [address] [place] [address] ED Note-Physicianon 07-12-20 ED Note-Physician Patient: JEREMIE [...] . Impression and Plan Diagnosis Acute UTI (YFX94-JC N39.0, Discharge, Medical) Pharyngitis (ZME43-SW J02.9, Discharge, Medical) Plan Disposition: Discharged: Time [...] the following educational materials: Urinary Tract Infection, Dhyj-vu-Opyi, Urinary Tract Infection, Mzws-jg-Oryc, Upper Respiratory Infection, Adult, Upper Respiratory Infection, Adult, Urinary Tract Infection, Ycnh-rb-Eejz, Upper Respiratory Infection, Adult, Urinary Tract Infection, Frmp-xn-Mijs. Follow up with: XXXX NONE In 3 days 06/16/2017, XXXX NONE In 3 days 06/16/2017; Follow-up for [address] Atkinson in [facility] In 3 days 06/16/2017. Counseled: Patient, Family, Regarding diagnosis, Regarding diagnostic results, Regarding treatment plan, Regarding prescription, Patient indicated understanding of instructions. [facility] Comment on above: Result Comment: Elec tronically Signed By: Rony GUZMAN, Alf\.br\Date and Time Signed: 07/11/17 22:56 EST C Strep Screenon 06-15-2017 Protein mass conc MicrobiologyPROCEDUR E: Strep Screen Culture [R1]SOURCE: Throat BODY SITE:COLLECTED DATE/TIME: 06/13/2017 19:06 EST RECEIVED DATE/TIME: 06/13/2017 19:29 ESTSTART DATE/TIME: 06/13/2017 19:29 EST FREE TEXT SOURCE:Robert Quinonez PA-C, PA-C, MohammadFINAL REPORTSFinal Report [] Verified Date/Time: 06/15/2017 12:22 ESTNo Pathogenic Streptococcus IsolatedPerforming LocationsR1: This test was performed at: [facility], [address] [place] [address], [address] [place] [address] [facility] Comment on above: Performed By: #### 2 [id number] ####[address] Urineon 06-15-2017 Bacteria identified Cx Nom (U) MicrobiologyPROCEDURE: Urine Culture [R1] U CleanCatch BODY SITE:COLLECTED DATE/TIME: 06/13/2017 18:57 EST RECEIVED DATE/TIME: 06/13/2017 19:22 ESTSTART DATE/TIME: 06/13/2017 19:22 EST FREE TEXT SOURCE:Robert Quinonez PA-C, PA-C, MohammadFINAL REPORTSFinal Report [] Verified Date/Time: 06/15/2017 12:24 [...] SSulfaPerforming LocationsR1: This test was performed at: [facility], [address] [place] [address], [address] , [facility] Comment on above: Performed By: #### 2 [id number], [id number], [id number] ####[place] [address] [place] [address] Coding Summary.on 06-15-2017 Coding Summary. CODING DATE: 017 FINAL [facility] DSC STATUS: Home (Routine DC) PAYOR: [...] Revised Date Saved: 06/15/2017 04:56 pm Normal [facility] ED Clinical Summaryon 2016 ED Clinical Summary (Inserted Image. Mireya ble to display) [place] [id number] ED Clinical SummaryPerson Information Name: YOVNNE GOODEN/Ivone Age: 22 Years : 1995 12:00 AM Sex: Female Language:[place]er PCP: NONE, XXXX Marital Status:Single Visit Id: [...] PM 06/13/2017 7:46 PM 06/13/2017 7:46 PM ADDRESS:[address] [place] [address] [address] [place] [address] [facility] DOC NOTES: MEDICAL INFORMATION: Prescriptions Given:Prescription Display cephalexin (Keflex 500 mg Cap) 500 mg = 1 cap(s), Oral, q6hr, X 7 day(s), # 28 cap(s), Refills(s) 0 Home Meds Display ethinyl estradiol-norgestimate (TriNessa oral tablet) Refill(s) 0 fluoxetine (FLUoxetine 10 mg Cap) Refills(s) 0 PATIENT EDUCATION INFORMATION: Instructions:Upper Respiratory Infection, Adult; Urinary Tract Infection, Tkuu-ka-Tcib Follow up:With: Address: When: Follow-up for [address] Atkinson in [facility] In 3 days 06/16/2017 With: Address: When: XXXX NONE , [place] In 3 days 06/16/2017 DIAGNOSIS:Acute UTI; Pharyngitis Normal [facility] ED Patient Education Noteon 06-13-2017 ED Patient [...] require emergency medical care and may be life-threatening.PREVENTIONT he best way to protect against getting a [...] other symptoms. HOME CARE INSTRUCTIONS? Only take qxdk-hpm-sqkugvz or prescription medicines for pain, discomfort, or [...] 09/26/2012 Document Reviewed: 10/10/2014ExitCare? Patient Information ?2015 [employer]. This information is not intended to replace [...] 03/29/2013 Document Reviewed: 02/02/2013ExitCare? Patient Information ?2014 [employer]. This information is not intended to replace advice given to you by your health care provider. Make sure you discuss any questions you have with your health care provider. Normal [facility] ED Patient Summaryon 017 ED Patient Summary (Inserted Image. Mireya ble to display) [place] [id number] Patient Discharge Instructions Person Information Name: YVONNE GOODEN Age: 22 Years Date: 06/13/2017 6:37 PMDischarge Diagnosis: Acute UTI; Pharyngitis Primary Care Physician: NONE, [facility] Provider InformationPrimary Provider: Ping Uribe MD Regional Education Coordinator:None The exam and treatment you received in the Emergency Department were for an urgent problem and are not intended as complete care. It is important that you follow up with a doctor, nurse practitioner, or physician?s stores assistant for ongoing care. If your symptoms become [...] [address] Atkinson in [facility] In 3 days 06/16/2017 With: Address: When: XXXX NONE , [place] In 3 days 06/16/2017 In the event that this physician does not participate in your insurance network, please consult with your insurance company to find a nearby participating provider. Patient Education Materials:Upper Respiratory Infection, Adult; Urinary Tract Infection, Uzuq-lo-Elrt Medications Given:Medication Dose Route cephalexin 500.00 mg Oral Medication Information:New MedicationsPrinted Prescriptionscephalexin (Keflex 500 mg Cap) 1 Capsules By Mouth every 6 hours for 7 Days. Refills: 0.Medications to Continue with No ChangesOther Medicationsethinyl estradiol-norgestimate (TriNessa oral tablet) fluoxetine (FLUoxetine 10 mg Cap) Comment: Pharmacy Information: Thank you for choosing [facility] Patient Education Materials: Upper Respiratory Infection, [...] require emergency medical care and may be life-threatening.PREVENTIONT he best way to protect against getting a [...] other symptoms. HOME CARE INSTRUCTIONS? Only take caaa-pdc-txiwwtk or prescription medicines for pain, discomfort, or [...] 09/26/2012 Document Reviewed: 10/10/2014ExitCare? Patient Information ?2015 [employer]. This information is not intended to replace [...] 03/29/2013 Document Reviewed: 02/02/2013ExitCare? Patient Information ?2014 [employer]. This information is not intended to replace advice given to you by your health care provider. Make sure you discuss any questions you have with your health care provider.GIACOMO Barrios ALICYN D , have received the following patient education materials/instructions and have verbalized understanding: Patient Education Materials: Upper Respiratory Infection, Adult; Urinary Tract Infection, Pohp-pt-Pedg Follow-up Instructions: With: Address: When: Follow-up for [address] Atkinson in [facility] In 3 days 06/16/2017 With: Address: When: [facility]X [facility] , [place] In 3 days 06/16/2017 Prescriptions: [cephalexin (Keflex 500 mg Cap)] Patient Signature Date Clinician/Nurse Signature Date 06/13/17 19:46:34 Normal [facility] U BetaHcg Qualon 06-13-2017 HCG.beta subunit molar conc (U) Negative Normal [facility] Comment on above: Performed By: #### 2 [id number], [id number], [id number] ####[facility] [address] [place] [address] UA With Cult Reflexon 2016 Bacteria LM Ql (Urine sed) TRACE Normal Trace [facility] Comment on above: Performed By: #### 2 [id number], [id number], [id number] ####[facility] [address] [place] [address] Bilirubin Ql (U) Negative Normal Negative [facility] Comment on above: Performed By: #### 2 [id number], [id number], [id number] ####[facility] [address] [place] [address] Clarity Nom (U) CLEAR Normal Clear [facility] Comment on above: Performed By: #### 2 [id number], [id number], [id number] ####[facility] [address] [place] [address] Color Auto Nom (U) STRAW Abnormal Yellow [facility] Comment on above: Performed By: #### 2 [id number], [id number], [id number] ####[facility] [address] [place] [address] Epithelial cells.squamous LM.HPF #/area (Urine sed) 0-2 Normal 0-2 [facility] Comment on above: Performed By: #### 2 [id number], [id number], [id number] ####[facility] [address] [place] [address] Glucose Test strip mass conc (U) Negative Normal Negative [facility] Comment on above: Performed By: #### 2 [id number], [id number], [id number] ####[facility] [address] [place] [address] Hemoglobin Test strip Ql (U) TRACE Abnormal Negative [facility] Comment on above: Performed By: #### 2 [id number], [id number], [id number] ####[facility] [address] [place] [address] Ketones mass conc (U) Negative Normal Negative [facility] Comment on above: Performed By: #### 2 [id number], [id number], [id number] ####[facility] [address] [place] [address] Tamora.plasma/Lithiu m.RBC mass ratio (Bld) 0-3 Normal 0-3 [facility] Comment on above: Performed By: #### 2 [id number], [id number], [id number] ####[facility] [address] [place] [address] Mucus LM Ql (Urine sed) 1+ Normal [facility] Comment on above: Performed By: #### 2 [id number], [id number], [id number] ####[address] [address] Nitrite Test strip Ql (U) Negative Normal Negative [facility] Comment on above: Performed By: #### 2 [id number], [id number], [id number] ####[facility] [address] [place] [address] pH Test strip (U) 5.5 [pH] Invalid Interpretation Code 5.0-9.0 [facility] Comment on above: Performed By: #### 2 [id number], [id number], [id number] ####[facility] [address] [place] [address] Protein mass conc (U) Negative Normal Negative [facility] Comment on above: Performed By: #### 2 [id number], [id number], [id number] ####[address] [place] [address] Specific gravity Relative Density (U) 1.020 Invalid Interpretation Code 1.005-1.03 0 [facility] Comment on above: Performed By: #### 2 [id number], [id number], 8604229 ####[facility] [address] [place] [address] UA Spec Desc Clean Catch Normal [facility] Comment on above: Performed By: #### 2 [id number], [id number], [id number] ####[facility] [address] [place] [address] Urobilinogen Test strip Qn (U) 0.2 {Krista'U}/dL Normal 0.0-1.0 [facility] Comment on above: Performed By: #### 2 [id number], [id number], [id number] ####[facility] [address] [place] [address] WBC Auto Ql (U) 1+ Abnormal Negative [facility] Comment on above: Performed By: #### 2 [id number], [id number], [id number] ####[facility] [address] [place] [address] WBC LM.HPF #/area (Urine sed) 16-25 Abnormal 0-5 [facility] Comment on above: Performed By: #### 2 [id number], [id number], [id number] ####[facility] [address] [place] [address] Vital Signs Date Time Vital Sign Value Performing Clinician Facility 08-22-2024 15:06-0500 Body mass index (BMI) [Ratio] 26.45 kg/m2 [facility] Work Phone: [facility] 08-22-2024 15:06-0500 Body weight 66.13 kg [employer] Work Phone: [facility] 08-22-2024 15:06-0500 Diastolic blood pressure 60 mm[Hg] Dejan Bipin [employer] Work Phone: [facility] 08-22-2024 15:06-0500 Systolic blood pressure 118 mm[Hg] Dejan Bipin DO Work Phone: [facility] 10-17-2023 11:50-0400 Body height 162.56 cm HAWA Swartz Work Phone: [facility] 10-17-2023 11:50-0400 Body temperature 97.9 [degF] ALUMNI COORDINATORAshley Swartz Work Phone: [facility] 10-17-2023 11:50-0400 Body weight 66.1 kg ALUMNI COORDINATORAshley Swartz Work Phone: [facility] 10-17-2023 11:50-0400 Diastolic blood pressure 60 mm[Hg] ALUMNI COORDINATORAshley Swartz Work Phone: [facility] 10-17-2023 11:50-0400 Heart rate 91 /min ALUMNI COORDINATORAshley Swartz Work Phone: [facility] 10-17-2023 11:50-0400 Respiratory rate 16 /min ALUMNI COORDINATORAshley Swartz Work Phone: [facility] 10-17-2023 11:50-0400 SaO2% (BldA) [Mass fraction] 97 % ALUMNI COORDINATORAshley Swartz Work Phone: [facility] 10-17-2023 11:50-0400 Systolic blood pressure 126 mm[Hg] ALUMNI COORDINATORAshley Swartz Work Phone: [facility] Encounters Encounter Date Encounter Type Care Provider Facility Start: 11-24-2024 End: 11-24-2024 Clinisync Result Encounter Dejan Bipin DO Work Phone: [facility] Unsolicited Start: 11-24-2024 End: 11-24-2024 Clinisync Result Encounter Dejan Bipin DO Work Phone: [facility] Unsolicited Start: 11-22-2024 End: 11-22-2024 Clinisync Result Encounter Dejan Bipin DO Work Phone: [facility] Unsolicited Start: 11-22-2024 End: 11-22-2024 Clinisync Result Encounter Dejan Bipin DO Work Phone: [facility] Unsolicited Start: 08-28-2024 End: 08-28-2024 Clinisync Result Encounter Dejan Bipin DO Work Phone: [facility] Unsolic[facility] Start: 08-28-2024 End: 08-28-2024 Clinisync Result Encounter Dejan Bipin DO Work Phone: [facility] Unsolic[facility] Start: 08-22-2024 End: 08-22-2024 Office outpatient visit 15 minutes Dejan Bipin DO Work Phone: [facility] Comment on above: Encounter for fertil ity planning; PCOS (polycystic ovarian syndrome); Hormone imbalance Start: 08-22-2024 End: 08-22-2024 Bamboo flowsheet Dejan Bipin DO Work Phone: [facility] Start: 08-22-2024 End: 08-22-2024 Bamboo flowsheet Dejan Bipin DO Work Phone: [facility] Start: 08-22-2024 End: 08-22-2024 ambulatory DEJAN BIPIN Not Available Start: 10-17-2023 End: 10-17-2023 Emergency department patient visit ALUMNI COORDINATOR Juan Swartz Work Phone: [facility] Work Phone: Start: 05-06-2022 End: 05-06-2022 ambulatory DO Juan Cerna Work Phone: [facility] Work Phone: Start: 05-06-2022 End: 05-06-2022 Patient encounter procedure DO Juan Cerna Work Phone: [facility] [place] Start: 02-26-2020 End: 02-27-2020 Patient encounter procedure ROCCO WEBBER Facility: Start: 02-02-2018 End: 02-03-2018 Patient encounter Mirza Cheng Facility:CD:[id number] Start: 01-28-2018 End: 01-29-2018 Patient encounter Mirza Cheng Facility:CD:[id number] Start: 09-10-2017 End: 09-10-2017 Emergency department patient visit XXXX NONE Facility:[facility] Start: 06-13-2017 End: 06-13-2017 Emergency department patient visit XXXX NONE Facility:[facility] Procedures Date Procedure Procedure Detail Performing Clinician Start: 11-24-2024 H PREG QUANT HCG Core y Bipin DO Work Phone: Start: 11-22-2024 US OB TRANSVAGINAL Core y Bipin DO Work Phone: Start: 08-28-2024 TBH PREG QUANT HCG Core y Bipin DO Work Phone: Start: 10-17-2023 Streptococcus pyogen es antigen assay ALUMNI COORDINATOR Juan Swartz Work Phone: Plan of Treatment Date Care Activity Detail Author Start: 12-08-2024 End: 12-08-2024 ambulatory 12/08/2024 10:00 AM EDT Initial [facility] [address] [place] [id number] [facility] Start: 12-08-2024 End: 12-08-2024 Professional / ancillary services management 12/08/2024 9:30 AM EDT Ancillary Procedure [facility] [address] [place] [id number] [facility] Start: 08-22-2024 End: 08-22-2024 Patient encounter procedure 08/22/2024 2:10 PM EST Office Visit [facility] [address] [place] [id number] Dejan Voss, DO [address] [place] [address] Arrived [facility] Comment on above: Arrived Start: 08-22-2024 End: 08-22-2025 DHEA DHEA Lab Routine PCOS (polycystic ovarian syndrome) Expected: 08/22/2024 (Approximate), Expires: 08/22/2025 [facility] Comment on above: Expected: 08/22/2024 (Approximate), Expires: 08/22/2025 Start: 10-17-2023 SARS-CoV-2, Influenz a & RSV (PCR) SARS-CoV-2, Influenza & RSV (PCR) [facility] Start: 10-17-2023 [facility] CBC W Auto Different ial panel - Blood CBC and differential Lab Routine PCOS (polycystic ovarian syndrome) Ordered: 08/22/2024 [facility] Comment on above: Ordered: 08/22/2024 DHEA-sulfate DHEA-sulfate Lab Routine PCOS (polycystic ovarian syndrome) Ordered: 08/22/2024 [facility] Comment on above: Ordered: 08/22/2024 Follicle stimulating hormone Follicle stimulating hormone Lab Routine PCOS (polycystic ovarian syndrome) Ordered: 08/22/2024 [facility] Comment on above: Ordered: 08/22/2024 hCG, quantitative, hCG, quantitative, Lab Routine PCOS (polycystic ovarian syndrome) Ordered: 08/22/2024 [facility] Work Phone: Comment on above: Ordered: 08/22/2024 Hemoglobin A1c/Hemoglobin.total in Blood Hemoglobin A1c Lab Routine Hormone imbalance Ordered: 08/22/2024 [facility] Comment on above: Ordered: 08/22/2024 Luteinizing hormone Luteinizing hormone Lab Routine PCOS (polycystic ovarian syndrome) Ordered: 08/22/2024 [facility] Comment on above: Ordered: 08/22/2024 Patient Education Strep Throat (DC) [facility] Work Phone: Patient referral [facility] Work Phone: Progesterone Progesterone Lab Routine Hormone imbalance Ordered: 08/22/2024 [facility] Comment on above: Ordered: 08/22/2024 Thyrotropin [Units/volume] in Serum or Plasma TSH Lab Routine PCOS (polycystic ovarian syndrome) Ordered: 08/22/2024 [facility] Comment on above: Ordered: 08/22/2024 Thyroxine (T4) free [Mass/volume] in Serum or Plasma T4, free Lab Routine PCOS (polycystic ovarian syndrome) Ordered: 08/22/2024 [facility] Comment on above: Ordered: 08/22/2024 Payers Date Payer Category Payer Private Health Insurance [facility] [id number] 2021 Unknown [id number] 2017 Self-pay 1997 Unknown [id number] 1997 Unknown [id number] 1959 Unknown [id number] Private Health Insurance [facility] [id number] Unknown Valerie [employer]/ [id number] Unknown [id number] Social History Date Type Detail Facility Tobacco smoking stat us [facility] Unknown if ever smoked [facility] Work Phone: Start: 1995 Sex Assigned At Female F [facility] Start: 02-07-2023 End: 10-17-2023 Tobacco smoking status NHIS Never smoked tobacco (finding) [facility] Start: 07-13-2023 End: 08-22-2024 Alcoholic beverage intake Current drinker of alcohol (finding) [facility] Start: 07-08-2023 End: 08-22-2024 History of Social function [facility] Start: 07-08-2023 End: 08-22-2024 Alcohol Use Disorder Identification Test - Consumption [AUDIT-C] [facility] How often to you hav e a drink containing alcohol? Never [facility] How many standard dr inks containing alcohol do you have on a typical day? 1 or 2 [facility] How often do you hav e 6 or more drinks on 1 occasion? Less than monthly [facility] Start: 02-07-2023 Alcohol Comment Alcohol: 6 or more drinks / less than monthly; 1 or 2 drinks on typical day. Caffeine: occasional [facility] Start: 1995 Sex assigned at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 [facility] Start: 09-30-2022 Gender identity Identifies as female gender (finding) [facility] NEGATED: Highlighted row [facility] History of Present illness Narrative 08-22-2024 Ana Cristina Romero, [employer] RESELLER - 08/22/2024 2:10 PM EST Note Date & Type Note Facility 08-22-2024 History of Presen t illness Narrative Reason for Appointment: Patient ID: Yvonne Baker is a 29 y.o. female who presents for Fertility Consult and Breast Pain Patient presents today for Fertility Follow Up appointment. MEDICATIONS Current Outpatient Medications Medication Instructions ondansetron ODT (Zofran-ODT) 4 MG disintegrating tablet ALLERGIES Allergies Allergen Reactions Bee Venom PROBLEMS Active Ambulatory Problems Diagnosis Date Noted No Active Ambulatory Problems Resolved Ambulatory Problems Diagnosis Date Noted No Resolved Ambulatory Problems Past Medical History: Diagnosis Date Anxiety with depression C. difficile colitis 2014 History of medical problems HISTORY PAST MEDICAL HISTORY SOCIAL HISTORY Past Medical History: Diagnosis Date Anxiety with depression C. difficile colitis 2014 History of medical problems sensitive stomach Social History Tobacco Use Smoking status: Never Smokeless tobacco: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 Substance Use Topics Alcohol use: Yes Comment: Alcohol: 6 or more drinks / less than monthly; 1 or 2 drinks on typical day. Caffeine: occasional Drug use: Never FAMILY HISTORY Family History Problem Relation Name Age of Onset Other (Stage 2 Carcinoma) Mother Gallbladder disease Mother Thyroid disease Mother Hypertension Mother Other (Appendix Cancer) Father No Known Problems Sister 3 sisters No Known Problems Brother 2 brothers Prostate cancer Maternal Grandfather SURGICAL HISTORY Past Surgical History: Procedure Laterality Date APPENDECTOMY 2006 COLPOSCOPY 08/2021 Negative PAP SMEAR (10/06)- Neg MAXIMILIANO; HPV pos, Neg types 16,18,45 ; (08/09)- ASCUS, HPV pos WISDOM TOOTH EXTRACTION 2014 REVIEW OF SYSTEMS Review of Systems: Review of Systems Constitutional: Negative. HENT: Negative. Eyes: Negative. Respiratory: Negative. Cardiovascular: Negative. Gastrointestinal: Negative. Genitourinary: Negative. Musculoskeletal: Negative. Skin: Negative. Neurological: Negative. All other systems reviewed and are negative. Hematological: Negative. Endocrine: Negative. Allergic/Immunologic: Negative. OBJECTIVE Objective: Physical Exam Constitutional: Appearance: Normal appearance. She is well-developed. Cardiovascular: Rate and Rhythm: Normal rate and regular rhythm. Pulmonary: Effort: Pulmonary effort is normal. Breath sounds: Normal breath sounds. Abdominal: General: Bowel sounds are normal. There is no distension. Palpations: Abdomen is soft. Tenderness: There is no abdominal tenderness. There is no guarding or rebound. Musculoskeletal: General: No swelling. Normal range of motion. Right lower leg: No edema. Left lower leg: No edema. Neurological: Mental Status: She is alert and oriented to person, place, and time. Skin: General: Skin is warm and dry. Psychiatric: Mood and Affect: Mood normal. Behavior: Behavior normal. Vitals and nursing note reviewed. Exam conducted with a hat band attacher present. Vitals: Estimated body mass index is 26.45 kg/m as calculated from the following: Height as of 08/04/22: 5' 2.25 . Weight as of this encounter: 145 lb 12.8 oz. BP: 118/60 No LMP recorded. ASSESSMENT & PLAN ICD-10-CM 1. Encounter for fertility planning Z31.89 2. PCOS (polycystic ovarian syndrome) E28.2 hCG, quantitative, TSH T4, free CBC and differential Follicle stimulating hormone Luteinizing hormone DHEA-sulfate DHEA DHEA 3. Hormone imbalance E34.9 Hemoglobin A1c Progesterone Patient presents today to discuss fertility. Pt having cycles, discussed timing up intercourse. Patient was advised to have intercourse on days 12, 14, 16, 18, and 20 of cycle. Pt given labs to have obtained on 08/28. Patient has voiced understanding and will call our office for any further questions/concerns. Orders Placed This Encounter Procedures hCG, quantitative, TSH T4, free CBC and differential Follicle stimulating hormone Luteinizing hormone Hemoglobin A1c DHEA-sulfate DHEA Progesterone Follow Up: As needed Documented by Ana Cristina Romero LPN on behalf of: Dejan Voss DO documented in this encounter [facility] Evaluation note Note Date & Type Note Facility Evaluation note No assessment information availa [facility] Work Phone: Evaluation note Note Date & Type Note Facility Evaluation note Diagnosis Encounter for fertility planning PCOS (polycystic ovarian syndrome) Polycystic ovaries Hormone imbalance documented in this encounter [facility] Summary Purpose Family History Relationship Condition Age at Onset Recorded Date/T ila father Hypertension Unknown Family history of mental disorder Unknown Diabetes mellitus Unknown Not Specified Hypertension Unknown Malignant neoplasm Unknown Advance Directives Advance Directive Response Recorded Date/ Time Advance Directives No June 24, 2020 11:43am Chief Complaint and Reason for Visit Chief Complaint Z00.00 Z13.6 Chief Complaint fever, sore throat , chills Additional Source Comments INFORMATION SOURCE (unrecogn ized section and content) DATE CREATED AUTHOR 02/16/2018 [facility] DATE CREATED AUTHOR AUTHOR'S ORGANIZ ATION 03/06/2020 [facility] DATE CREATED AUTHOR AUTHOR'S ORGANIZ ATION 01/02/2024 [facility] DATE CREATED AUTHOR AUTHOR'S ORGANIZ ATION 08/24/2024 [facility] dicnm Specialists EPIC Care Teams (unrecognized sec tion and content) [...] October 17, 2023 End: October 17, 2023 Legal Financial Specialist Relationship Specialty Start Date End Date Gregorio Garcia MD [address] [place] [address] PCP - General Family Medicine 10/18/23 Legal Financial Specialist Relationship Specialty Start Date End Date Gregorio Garcia MD [address] [place] [address] PCP - General Family Medicine 10/18/23 Legal Financial Specialist Relationship Specialty Start Date End Date Gregorio Garcia MD [address] [place] [address] PCP - General Family Medicine 10/18/23 Legal Financial Specialist Relationship Specialty Start Date End Date Gregorio Garcia MD PCP - General Family Medicine 10/18/23 Goals (unrecognized section and content) Goals may be documented in a n alternate sectionGoals may be documented in an alternate section Reason for Visit (unrecogniz ed section and content) Reason Comments Fertility Consult Breast Pain FOR RECORDS PERTAINING TO PATIENTS WHO ARE [...] BE BASED ON THE PRIMARY CLINICAL RECORDS. [facility]. provides no warranty or guarantee of the accuracy or completeness of information in this document.
[2024-11-25 22:35] VITALS: BP 131/84; PULSE 88; TEMP 36.9; O2SAT 98; BMI 24.0
--- NOTE | 2024-11-25 22:51 | ED_ITS ---
HPI - General Chief complaint: Vaginal Bleeding Stated complaint: CRAMPS, VAGINAL BLEEDING, 12 WKS PG Time Seen by Provider: 11/25/24 22:47 Source: patient Mode of arrival: walk-in Limitations: no limitations History of Present Illness HPI Narrative: [id number]. first went well. she is early . Started spotting 4 days ago and increased menstrual type bleed tonight along with abdominal cr amping. No fever but feels warm and has a headache Related Data Previous Rx's ?Medication ?Instructions ?Recorded metoclopramide HCl 10 mg tablet 10 mg PO Q6H PRN nause a and 08/12/24 (Reglan) vomiting 3 days #7 tabs Allergies Allergy/AdvReac Type Severity Reaction Status Date / Time bee venom protein (honey bee) Allergy Severe Anaphylaxis Verified 08/12/24 04:34 Review of Systems ROS Status of ROS 10 or more systems reviewed and unremark able except as noted in history and below PFSH PFSH Social History Little interest or pleasure in doing things: not at all Feeling down, depressed, or hopeless: not at all Exam Constitutional Vital Signs, click to edit/add: Last Vital Signs Temp 98.5 F 11/25/24 22:35 Pulse 88 11/25/24 22:35 Resp 18 11/25/24 22:35 BP 131/84 11/25/24 22:35 Pulse Ox 98 11/25/24 22:35 O2 Del Method Room Air 11/25/24 22:35 Common normals: no apparent distress, average body habitus, oriented x3, no limitations, healthy appearing, alert and well nourished [facility] Common normals: normocephalic and head/scalp atraumatic Respiratory Common normals: normal respiratory effort, no retractions, no use of accessory muscles and clear to auscultation bilaterally Cardio Common normals: regular rate, regular rhythm, S1 normal heart sound and S2 normal heart sound GI Common normals: Normal to inspection, nondistended, normoactive bowel sounds present, soft to palpation and non-tender Extremity Common normals: normal to inspection and full ROM Neuro Common normals: oriented x3, CN's II-XII intact bilaterally, moves all extremities and no focal motor deficits Psych Appearance: grossly normal Course Vital Signs Vital signs: Vital Signs Temperature 98.5 F 11/25/24 22:35 Pulse Rate 88 11/25/24 22:35 Respiratory Rate 18 11/25/24 22:35 Blood Pressure 131/84 11/25/24 22:35 Pulse Oximetry 98 11/25/24 22:35 Oxygen Delivery Method Room Air 11/25/24 22:35 Temperature 98.5 F 11/25/24 22:35 Pulse Rate 88 11/25/24 22:35 Respiratory Rate 18 11/25/24 22:35 Blood Pressure 131/84 11/25/24 22:35 Pulse Oximetry 98 11/25/24 22:35 Oxygen Delivery Method Room Air 11/25/24 22:35 MDM - OB/Uterine Contractions MDM Narrative Medical decision making narrative: [id number] presents early with vaginal spotting. menstrual type bleed tonight. mild abdominal cramping. normal vital signs and H/H BHCG is decreasing. Patient and informed of likely miscarriage and advised to follow up with her OB Lab Data Labs: Lab Results 11/25/24 Range/Units 23:03 WBC 8.2 (4.0-11.0) 10^3/uL RBC 4.43 (4.20-5.40) 10^6/uL Hgb 13.7 (12.0-16.0) g/dL Hct 40.3 (36.0-48.0) % MCV 91.0 (81.0-99.0) fL MCH 30.9 (26.7-34.0) pg MCHC 34.0 (29.9-35.2) g/dL RDW 13.2 (11.0-15.0) % Plt Count 266 (150-450) 10^3/uL MPV 11.3 (9.5-13.5) fL Neut % (Auto) 57.3 (43.0-75.0) % Lymph % (Auto) 32.0 (20.5-60.0) % [place] % (Auto) 8.8 (1.7-12.0) % Eos % (Auto) 1.2 (0.9-7.0) % Baso % (Auto) 0.5 (0.2-2.0) % Neut # (Auto) 4.7 (1.4-6.5) 10^3/uL Lymph # (Auto) 2.6 (1.2-3.8) 10^3/uL [place] # (Auto) 0.7 (0.3-0.8) 10^3/uL Eos # (Auto) 0.1 (0.0-0.7) 10^3/uL Baso # (Auto) 0.0 (0.0-0.1) 10^3/uL Abs Immat Gran (auto) 0.02 (0.00-0.03) 10^3/uL Imm/Tot Granulo (auto) 0.2 (0.0-0.5) % Sodium 138 (136-145) mmol/L Potassium 3.7 (3.5-5.1) mmol/L Chloride 102 (98-107) mmol/L Carbon Dioxide 31.0 (21.0-32.0) mmol/L Anion Gap 8.7 BUN 18.0 (7.0-18.0) mg/dL Creatinine 0.72 (0.55-1.02) mg/dL Est GFR ( Amer) >60 (>=60 mL/min/1.73m^2) Est GFR (Non-Af Amer) >60 (>=60 mL/min/1.73m^2) BUN/Creatinine Ratio 25.0 Glucose 98 (74-106) mg/dL Calcium 9.3 (8.5-10.1) mg/dL HCG, Quant 275 mIU/mL Discharge Plan Discharge Chief Complaint: Vaginal Bleeding Clinical Impression: Threatened Patient Disposition: Home, Self-Care Prescriptions / Home Meds: No Action metoclopramide HCl [Reglan] 10 mg tablet 10 mg PO Q6H PRN (Reason: nausea and vomiting) 3 Days Qty: 7 0RF Print Language: Khmer Instructions: Threatened Miscarriage (ED) Additional Instructions: follow up with Dr Voss wednesday for blood test as scheduled Referrals: Gregorio Garcia MD [Primary Care Provider, Family Practice] - 1 week
[2024-11-25 23:10] LABS: Basophils Percent Auto 0.5 % (0.2-2.0); Eosinophils Absolute Auto 0.1 10^3/uL (0.0-0.7); Eosinophils Percent Auto 1.2 % (0.9-7.0); Hematocrit 40.3 % (36.0-48.0); Hemoglobin 13.7 g/dL (12.0-16.0); Immature Granulocytes Abs Auto 0.02 10^3/uL (0.00-0.03); Immature Granulocytes Pct Auto 0.2 % (0.0-0.5); Lymphocytes Absolute Auto 2.6 10^3/uL (1.2-3.8); Mean Corpuscular Hemoglobin 30.9 pg (26.7-34.0); Mean Platelet Volume 11.3 fL (9.5-13.5); Monocytes Absolute Auto 0.7 10^3/uL (0.3-0.8); Monocytes Percent Auto 8.8 % (1.7-12.0); Neutrophils Absolute Auto 4.7 10^3/uL (1.4-6.5); Neutrophils Percent Auto 57.3 % (43.0-75.0); Platelet Count 266 10^3/uL (150-450); Red Blood Count 4.43 10^6/uL (4.20-5.40); Red Cell Distribution Width 13.2 % (11.0-15.0); White Blood Count 8.2 10^3/uL (4.0-11.0)
[2024-11-25 23:37] LABS: Anion Gap 8.7; Calcium 9.3 mg/dL (8.5-10.1); Chloride 102 mmol/L (98-107); Estimated GFR (African America >60 (>=60 mL/min/1.73m^2); Estimated GFR (Non-African Ame >60 (>=60 mL/min/1.73m^2); Glucose 98 mg/dL (74-106); Potassium 3.7 mmol/L (3.5-5.1); Sodium 138 mmol/L (136-145)
[2024-11-25 23:40] LABS: HCG Quantitative 275 mIU/mL
== END 2024-11-26 00:17 | disposition home or self-care (01) ==
PROVIDERS: Emergency Provider Internal Medicine; PCP Family Medicine
DX: O20.0 Threatened abortion (principal); Z3A.12 12 weeks gestation of pregnancy
CPT/HCPCS: 36415; 80048; 84702; 85025; 99283

== ENCOUNTER 2025-01-06 08:18 | Outpatient (RCR) | payer OTHER, SELFPAY ==
--- OUTSIDE RECORDS SUMMARY | 2024-06-12 07:10 | XMS_ITS ---
Author Organization [facility] Address [address] [place] [address] Care Team Providers Care Clinical Academic Allergist Name Role Phone Gregorio Garcia Primary Care Provider Dane Chowdhury [facility] [phone] Results Component Value Reference Range Notes SCC- WRIST 3 VIEW RIGHT 7311 0 Reviewed date:07/25/2024 12:42:11 PM Interpretation: Performing Lab: Notes/Report: SCC- WRIST 3 VIEW LEFT 16703 Reviewed date:07/25/2024 12:42:17 PM Interpretation: Performing Lab: Notes/Report: REASON FOR VISIT BILAT WRIST GANGLION CYST Encounters Encounter Location Date Provider Diagnosis [facility] [address] [place] [address] [address] [place] [address] 06/12/2024 Dane Cordova Pain in right wrist M25.531 and Pain in left wrist M25.532 Assessments Encounter Date Diagnosis (ICD Code) Assessment Notes Treatment Notes Treatment Clinical Notes Section Notes 06/12/2024 Pain in right wrist (ICD-10 - M25.531) 06/12/2024 Pain in left wrist (ICD-10 - M25.532) Plan Of Treatment No Information Progress Notes * CARINA CANALES DDOB: 7 (29 yo F)Acc No.[id number]:06/12/2024 Patient: Bisi CARINA DARBY Provider: Bisi Cordova MD :1995 A ge:29 Y S ex:Female Date:06/12/2024 Address:[address] [id number] Pcp:Gregorio Garcia Subjective: * Chief Complaints: * 1 . BILAT WRIST GANGLION CYST. * Medical History: Objective: * Vitals: Assessment: * Assessment: 1. P ain in right wrist - M25.531 2 . P ain in left wrist - M25.532 ? Plan: * Treatment: 2. P ain in left wrist I maging: SCC- WRIST 3 VIEW LEFT [address]24 (Performed Date - 07/25/2024) Forms: * Images: * Electronic signature of Yusuf Cordova MD on 01/06/2025 at 08:23 AM EDT Sign off status: Pending * Provider: Bisi Cordova MD Date: 1 08/12/2023 Generated for Kaushik almanza/Bernice/Johnitting on: 0 01/06/2025 08:23 AM EDT
--- OUTSIDE RECORDS SUMMARY | 2024-10-30 09:35 | XMS_ITS ---
Author Organization The [facility] in [place] Address [address] [place] [address] Care Team Providers Care Stenciling Machine Tender Name Role Phone Jai Garcia Primary Care Provider [phone] REASON FOR VISIT fertility issues/ thyroid Encounters Encounter Location Date Provider Diagnosis [facility] [address] [facility] [place] [address] 10/30/2024 Jai Garcia Family history of thyroid [...] Yvonne BAKER DDOB: [birth year] (29 yo F)Acc No.[id number]:10/30/2024 Patient: Bisi BILLYLinnYvonne :1995 A ge:29 Y S ex:Female Address:[address] [place], [address] Subjective: * Chief Complaints: * F ertility issues/ thyroid * Medical History: * Surgical History: * Hospitalization/Major Diagno stic Procedure: * Medications: Objective: * Vitals: * Physical Examination: Assessment: * Assessment: 1. F amily history of thyroid disease - Z83.49 (Primary) Plan: * Treatment: * Procedure Codes: * true * Date: Generated for Kaushik almanza/Bernice/Latosha on: 0 01/06/2025 08:22 AM EDT
--- OUTSIDE RECORDS SUMMARY | 2024-11-16 04:58 | XMS_ITS ---
Author Organization The [facility] in [place] Address [address] [place] [address] Care Team Providers Care Cushion Stuffer Name Role Phone Graygill Jai Primary Care Provider [phone] REASON FOR VISIT nm thyroid uptake Encounters Encounter Location Date Provider Diagnosis [facility] [address] [facility] [place] [address] 11/16/2024 Jai Garcia Plan Of Treatment No Information Progress Notes * Yvonne BAKER DDOB: [birth year] (29 yo F)Acc No.[id number]:11/16/2024 Patient: Bisi DARBY Yvonne Lopez :1995 A ge:29 Y S ex:Female Address:[address] [facility] [address] * true * Date: Generated for Dexi cami/Bernice/eTransmitting on: 0 01/06/2025 08:22 AM EDT
--- OUTSIDE RECORDS SUMMARY | 2024-11-28 12:10 | XMS_ITS ---
Author Organization [facility] in [place] Address [address] [place] [address] Care Team Providers Care Bed Laborer Name Role Phone Jai Garcia Primary Care Provider REASON FOR VISIT cold symptoms Medications Medication SIG (Take, Route, Fr equency, Duration) Notes Start Date End Date Status Azithromycin 250 MG 2 tabs today then 1 tab Orally daily for 5 days 11/28/2024 Active Encounters Encounter Location Date Provider Diagnosis [address] [place] [address] 11/28/2024 Jai Garcia Plan Of Treatment Medication Medication Name Sig Start Date Stop Date Notes Azithromycin 250 MG 2 tabs today then 1 tab Orally daily for 5 days 11/28/2024 Progress Notes * Yvonne BAKER DDOB: [birth year] (29 yo F)Acc No.[id number]:11/28/2024 Patient: Bisi BILLYLinnYvonne :1995 A ge:29 Y S ex:Female Address:[address] [facility] [address] * Refills Start Azithromycin Tablet, 250 MG, Orally, 6, 2 tabs today then 1 tab, daily, 5 days, Refills=0 * true * Date: Generated for Dexi cami/Fafainag/eTransmitting on: 0 01/06/2025 08:22 AM EDT
--- OUTSIDE RECORDS SUMMARY | 2025-01-06 08:22 | XMS_ITS | Encounter Summary ---
Author Organization [facility] Address [address] [place] [address] Care Team Providers Care Lineman Service Or Work Dispatcher Name Role Phone Juan Cerna DO Primary Care Provider + [phone] Gregorio Garcia MD Primary Care Provider [phone] Encounter Details Date Type Department Care Team (Late st Contact Info) Description 05/12/2023 Abstract [facility] [address] [facility] [place] [id number] Randa Renteria MD [address] [place] [address] Social History Tobacco Use Types Packs/Day Years Used Date Smoking Tobacco: Never Alcohol Use Standard Drinks/Week Comments Yes 0 (1 standard drink = 0.6 oz pure alcohol) Alcohol: 6 or more drinks / less than monthly; 1 or 2 drinks on typical day. 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
--- OUTSIDE RECORDS SUMMARY | 2025-01-06 08:22 | XMS_ITS | CCD ---
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 and Plan Diagnosis General medical (PNED [id number], Reason For Visit, Emergency medicine, Medical) Complaint of Intentional drug overdose (PNED [id number], Reason For Visit, Emergency medicine, Medical) Intentional drug overdose (ZLK78-DO T50.902A, Discharge, Emergency medicine, Medical) Suicidal ideation (KYM14-AK R45.851, Discharge, Emergency medicine, Medical) Plan Condition: Improved, Stable. Disposition: Discharged: to home. Patient was given the following educational materials: Nontoxic Ingestion, Poisoning Information, Adult, Suicidal Feelings: How to Help Yourself, Suicidal Feelings: How to Help Yourself, Poisoning Information, Adult, Nontoxic Ingestion. Follow up with: ; [facility] In 3 days 09/13/2017. Counseled: Patient, Regarding diagnosis, Regarding diagnostic results, Regarding treatment plan, Regarding prescription, Patient indicated understanding of instructions. Notes: Return to the ER if condition changes or worsens or if you have any other concerns. Otherwise see your family doctor for follow up.. Normal [facility] Comment on above: Result Comment: Elec tronically [...] day. It is best if it is mcfg-ib-ztgw. Remember, they will want to help you.? [...] health department.? Call your local emergency services (461 in the [facility]).? Call a suicide hotline:? 6-696-986-TALK ( ) in the [facility].? 5-535-XAWJRFJ ( ) in the [facility].? in the [place] for Montenegrin-speaking counselors.? 1-681-583-4TTY ( ) in the [place] for TTY users.? Visit the following websites for information and help:? National Suicide Prevention Lifeline: www.suicidepreventionlifelin e.org? Hopeline: www.hopeline.com? [place] Foundation for Suicide Prevention: www.afsp.org? For lesbian, hollis, bisexual, transgender, or questioning youth, contact The [place] Project:? 8-823-9-U-ELOY ( ) in the [place].? www.thetrevorproject.org? In [place], treatment resources are listed in each province with listings available under [employer] or similar titles. Another source for Crisis Centres by Province is located at http://www.suicideprevention .ca/oj-lybkve-ail/find-a-cri wms-gyltxn-pvd/crisis-centre sDocument Released: 01/09/2004 Document Revised: 09/26/2012 Document Reviewed: 10/30/2014ExitCare? Patient Information ?2015 [employer]. This information is not intended to replace [...] 09/26/2012 Document Reviewed: 08/05/2009ExitCare? Patient Information ?2014 [employer]. This information is not intended to replace [...] poisoning are: ? Medicines, including prescription medicines, dxbt-zze-pcxbsnk pain medicines, vitamins, iron pills, and herbal supplements.? Cleaning or laundry products.? Tindall and paint thinner.? Marseilles or insect killers.? Perfume, hair spray, or nail products.? Alcohol.? Plants, such as philodendron, poinsettia, oleander, castor baker, cactus, and tomato plants.? Batteries.? Furniture lithuanian.? Drain shank threader.? Antifreeze or other automotive products.? Gasoline, signs cleaner fluid, or lamp oil.? Carbon monoxide gas from furnaces or automobiles.? Toxic fumes from the burning of plastics or certain other materials.WHAT ARE SOME FIRST-AID MEASURES FOR POISONING?The local poison control center must be contacted whenever a person may have been exposed to poison. The poison insurance loss control surveyor will often give a set of directions [...] to identify the medicine to the poison insurance loss control surveyor.?? Get away from the area where exposure [...] Keep all dangerous household products (such as signs cleaner fluid, paint thinner and remover, gasoline, and antifreeze) in locked cabinets. ? Do not mix different household chemicals with each other.? Use protective equipment (gloves, goggles, masks, aprons) as needed when using chemicals or shank threader.? Install a carbon monoxide detector in your [...] to find the number.The local emergency services (518 in [place] must be contacted if a [...] 11/19/2014 Document Reviewed: 06/21/2013ExitCare? Patient Information ?2014 [employer]. This information is not intended to replace advice given to you by your health care provider. Make sure you discuss any questions you have with your health care provider. Normal [facility] ED Patient Summaryon 018 ED Patient Summary (Inserted Image. Mireya ble to display) [place] [id number] Patient Discharge Instructions Person Information Name: YVONNE GOODEN Age: 22 Years Date: 09/10/2017 11:11 AMDischarge Diagnosis: Intentional drug overdose; Suicidal ideation Primary Care Physician: NONE, XXXX Provider InformationPrimary Provider: Johanna Hogan DO [employer] Member:Jared The exam and treatment you received in the Emergency Department were for an urgent problem and are not intended as complete care. It is important that you follow up with a doctor, nurse practitioner, or physician?s food and beverage assistant for ongoing care. If your symptoms become worse or you do not improve as expected and you are unable to reach your usual health care provider, you should return to the Emergency Department. We are available 24 hours a day. YVONNE GOODEN has been given the following list of patient education materials, prescriptions and follow-up instructions: Follow-up Instructions:With: Address: When: [facility] In 3 days 09/13/2017 In the event [...] Comment: Pharmacy Information: Thank you for choosing [facility] Patient Education Materials: Suicidal Feelings, How [...] day. It is best if it is ukpd-rf-ssft. Remember, they will want to help you.? [...] your local emergency services (911 in the [place]).? Call a suicide hotline:? 3-383-298-TALK ( ) in the [place].? 9-013-HQQOJMS ( ) in the [place].? in the [place] for Montenegrin-speaking counselors.? 9-212-990-4TTY ( ) in the [facility] for TTY users.? Visit the following websites for information and help:? National Suicide Prevention Lifeline: www.suicidepreventionlifelin e.org? Hopeline: www.hopeline.com? [place] Foundation for Suicide Prevention: www.afsp.org? For lesbian, hollis, bisexual, transgender, or questioning youth, contact The [place]oy Project:? 5-206-6-U-ELOY ( ) in the [place].? www.thetrevorproject.org? In [place], treatment resources are listed in each province with listings available under [employer] or similar titles. Another source for Crisis Centres by Province is located at http://www.suicideprevention .ca/eg-mnquan-kha/find-a-cri qzp-suskfd-akd/crisis-centre sDocument Released: 01/09/2004 Document Revised: 09/26/2012 Document Reviewed: 10/30/2014ExitCare? Patient Information ?2014 [employer]. This information is not intended to replace [...] poisoning are: ? Medicines, including prescription medicines, lljz-ohh-txytqdc pain medicines, vitamins, iron pills, and herbal supplements.? Cleaning or laundry products.? Tindall and paint thinner.? Marseilles or insect killers.? Perfume, hair spray, or nail products.? Alcohol.? Plants, such as philodendron, poinsettia, oleander, castor baker, cactus, and tomato plants.? Batteries.? Furniture lithuanian.? Drain shank threader.? Antifreeze or other automotive products.? Gasoline, signs cleaner fluid, or lamp oil.? Carbon monoxide gas from furnaces or automobiles.? Toxic fumes from the burning of plastics or certain other materials.WHAT ARE SOME FIRST-AID MEASURES FOR POISONING?The local poison control center must be contacted whenever a person may have been exposed to poison. The poison insurance loss control surveyor will often give a set of directions [...] to identify the medicine to the poison insurance loss control surveyor.?? Get away from the area where exposure [...] Keep all dangerous household products (such as signs cleaner fluid, paint thinner and remover, gasoline, and antifreeze) in locked cabinets. ? Do not mix different household chemicals with each other.? Use protective equipment (gloves, goggles, masks, aprons) as needed when using chemicals or shank threader.? Install a carbon monoxide detector in your [...] 11/19/2014 Document Reviewed: 06/21/2013ExitCare? Patient Information ?2015 [employer]. This information is not intended to replace [...] 09/26/2012 Document Reviewed: 08/05/2009ExitCare? Patient Information ?2014 [employer]. This information is not intended to replace advice given to you by your health care provider. Make sure you discuss any questions you have with your health care provider.GIACOMO Barrios ALICYN D , have received the following patient education materials/instructions and have verbalized understanding: Patient Education Materials: Suicidal Feelings: How to Help Yourself; Poisoning Information, Adult; Nontoxic Ingestion Follow-up Instructions: With: Address: When: [facility] In 3 days 09/13/2017 Prescriptions: Patient Signature Date Clinician/Nurse Signature Date 09/10/17 15:46:57 Normal [facility] Ethanolon 09-10-2017 Ethanol mass conc mg/dL Normal <=7 [facility] Comment on above: Performed By: #### 2 [id number], [id number], [id number] ####[facility] [address] [place] [address] Hep Func Panelon 09-10-2017 BILIRUBIN.NON-GLUCURO NIDATED:MSCNC:PT:SER/ PLAS:QN: UTC Abnormal 0.1-0.9 [facility] Comment on above: Result Comment: Resu lt verified by Discern Rule. Performed result UTC (Unable to Calculate) was sent as an Alpha code due the inability to calculate a valid numeric value. Performed By: #### 2 [id number], [id number], [id number] ####[facility] [address] [place] [address] Bilirubin.direct mass conc mg/dL Normal 0.1-0.4 [facility] Comment on above: Performed By: #### 2 [id number], [id number], [id number] ####[facility] [address] [place] [address] Albumin mass conc 4.7 g/dL Normal 3.3-5.0 [facility] Comment on above: Performed By: #### 2 [id number], [id number], [id number] ####[facility] [address] [place] [address] Albumin mass conc 1.4 g/dL Normal 1.1-2.2 [facility] Comment on above: Performed By: #### 2 [id number], [id number], [id number] ####[facility] [address] [place] [address] ALP enzyme act/vol 46 Int._Unit/L Normal 21-[address] [facility] Comment on above: Performed By: #### 2 [id number], [id number], [id number] ####[address] [address] ALT No additional P-5'-P enzyme act/vol 18 Int._Unit/L Normal 6-46 [facility] Comment on above: Performed By: #### 2 [id number], [id number], 7387942 ####[address] [address] AST enzyme act/vol 24 Int._Unit/L Normal 5-[address] [facility] Comment on above: Performed By: #### 2 [id number], [id number], [id number] ####[facility] [address] [place] [address] Bilirubin mass conc 0.6 mg/dL Normal 0.0-1.1 [facility] Comment on above: Performed By: #### 2 [id number], [id number], [id number] ####[address] [address] Globulin Calculated mass conc (S) 3.4 g/dL Normal 1.4-4.0 [facility] Comment on above: Performed By: #### 2 [id number], [id number], 3953625 ####[facility] [address] [place] [address] Protein mass conc 8.1 g/dL High 6.0-7.8 [facility] Comment on above: Performed By: #### 2 [id number], [id number], 4742076 ####[place] [address] [place] [address] Lipase Levelon 09-10-2017 Lipase enzyme act/vol 17 unit/L Normal 13-58 [place] Comment on above: Performed By: #### 2 [id number], [id number], 6502041 ####[facility] [address] [place] [address] Salicylateon 09-10-2017 Salicylates mass conc mg/dL Low 6-29 [place] Comment on above: Performed By: #### 2 [id number], [id number], 3016152 ####[facility] [address] [place] [address] U BetaHcg Qualon 09-10-2017 HCG.beta subunit molar conc (U) Negative Normal [facility] Comment on above: Performed By: #### 2 [id number] ####[facility] [address] [place] [address] U Drug Screenon 09-10-2017 Amphetamines Screen method >1000 ng/mL Ql (U) Negative Normal Negative [facility] Comment on above: Result Comment: Nega tive Cutoff: <1000 ng/mL Performed By: #### 2 [id number], [id number], 8947506 ####[address] [address] Barbiturates Screen Ql (U) Negative Normal Negative [facility] Comment on above: Result Comment: Nega tive Cutoff: <200 ng/mL Performed By: #### 2 [id number], 24825434, [id number] ####[facility] [address] [place] [address] Benzodiazepines Screen Ql (U) Negative Normal Negative [facility] Comment on above: Result Comment: Nega tive Cutoff: <200 ng/mL Performed By: #### 2 1273702, [id number], 1493292 ####[facility] [address] [place] [address] Cocaine Ql (U) Negative Normal Negative [facility] Comment on above: Result Comment: Nega tive Cutoff: <300 ng/mL Performed By: #### 2 [id number], [id number], 5552284 ####[facility] [address] [place] [address] Opiates Screen Ql (U) Negative Normal Negative [place] Comment on above: Result Comment: Nega tive Cutoff: <300 ng/mL Performed By: #### 2 9792810, 83944380, 3570158 ####[facility] [address] [place] [address] Phencyclidine Screen method >25 ng/mL Ql (U) Negative Normal Negative [facility] Comment on above: Result Comment: Nega tive Cutoff: <25 ng/mLThese drug screen results are to be used for medical (i.e., treatment) purposes only. Unconfirmed drug screening results must not be used for non-medical purposes (e.g., employment testing, legal testing). Performed By: #### 2 [id number], [id number], 5905739 ####[place] [address] [place] [address] Tetrahydrocannabinol Screen method >50 ng/mL Ql (U) Negative Normal Negative [facility] Comment on above: Result Comment: Nega tive Cutoff: <50 ng/mL Performed By: #### 2 5163700, 77313151, 3110890 ####[facility] [address] [place] [address] eGFRon 09-10-2017 GFR/1.73 sq M predicted among blacks MDRD vol rate/area (S/P/Bld) mL/min/{1.73_m2} Normal >=59 [facility] Comment on above: Order Comment: Order added by Discern Expert. Result Comment: eGFR is race adjusted. AA=. Performed By: #### 2 8861481, [id number], 1016456 ####[facility] [address] [place] [address] GFR/1.73 sq M predicted among non-blacks MDRD vol rate/area (S/P/Bld) mL/min/{1.73_m2} Normal >=59 [facility] Comment on above: Order Comment: Order added by Discern Expert. Result Comment: Pulp Grinder Feeder lona kidney disease could be indicated at eGFR's of less than 60 mL/min/1.73m2. Kidney failure is indicated at less than 15 mL/min/1.73m2. Performed By: #### 2 [id number], [id number], [id number] ####[facility] [address] [place] [address] ED Note-Physicianon 07-12-20 ED Note-Physician Patient: JEREMIE [...] . Impression and Plan Diagnosis Acute UTI (VTU33-EJ N39.0, Discharge, Medical) Pharyngitis (JNA62-RB J02.9, Discharge, Medical) Plan Disposition: Discharged: Time [...] the following educational materials: Urinary Tract Infection, Aiqz-wg-Duhc, Urinary Tract Infection, Bxtk-ck-Zjhe, Upper Respiratory Infection, Adult, Upper Respiratory Infection, Adult, Urinary Tract Infection, Qshy-gc-Hvav, Upper Respiratory Infection, Adult, Urinary Tract Infection, Fwux-nn-Xgkn. Follow up with: XXXX NONE In 3 days 06/16/2017, XXXX NONE In 3 days 06/16/2017; Follow-up for [address] Atkinson in [facility] In 3 days 06/16/2017. Counseled: Patient, Family, Regarding diagnosis, Regarding diagnostic results, Regarding treatment plan, Regarding prescription, Patient indicated understanding of instructions. Normal [facility] Comment on above: Result Comment: Elec tronically [...] IsolatedPerforming LocationsR1: This test was performed at: [facility], [address] [place] [address], [address] , [facility] Comment on above: Performed By: #### 2 [id number] ####[facility] [address] [place] [address] Urineon 06-15-2017 Bacteria identified Cx Nom (U) [...] SSulfaPerforming LocationsR1: This test was performed at: [facility], [address] [place] [address], [address] , [facility] Comment on above: Performed By: #### 2 [id number], [id number], [id number] ####[facility] [address] [place] [address] Coding Summary.on 06-15-2017 Coding Summary. CODING DATE: 017 FINAL [facility] STATUS: Home (Routine DC) PAYOR: Self [...] Revised Date Saved: 06/15/2017 04:56 pm Normal [facility] ED Clinical Summaryon 2016 ED Clinical Summary (Inserted Image. Mireya ble to display) [place] [id number] [place], [place] [address] ED Clinical SummaryPerson Information Name: YVONNE GOODEN/Ivone Age: 22 Years : 1995 12:00 AM Sex: Female Language:Tongan PCP: NONE, XXXX Marital Status:Single Visit Id: [...] PM 06/13/2017 7:46 PM 06/13/2017 7:46 PM ADDRESS:[address] [place] [address] [facility] DOC NOTES: MEDICAL INFORMATION: Prescriptions Given:Prescription Display cephalexin (Keflex 500 mg Cap) 500 mg = 1 cap(s), Oral, q6hr, X 7 day(s), # 28 cap(s), Refills(s) 0 Home Meds Display ethinyl estradiol-norgestimate (TriNessa oral tablet) Refill(s) 0 fluoxetine (FLUoxetine 10 mg Cap) Refills(s) 0 PATIENT EDUCATION INFORMATION: Instructions:Upper Respiratory Infection, Adult; Urinary Tract Infection, Ciln-xg-Mtty Follow up:With: Address: When: Follow-up for [address] Atkinson in [facility] In 3 days 06/16/2017 With: Address: When: XXXX NONE , [place] In 3 days 06/16/2017 DIAGNOSIS:Acute UTI; Pharyngitis Normal [facility] ED Patient Education Noteon 06-13-2017 ED Patient [...] other symptoms. HOME CARE INSTRUCTIONS? Only take gpca-ykn-jhczhvk or prescription medicines for pain, discomfort, or [...] 09/26/2012 Document Reviewed: 10/10/2014ExitCare? Patient Information ?2015 [employer]. This information is not intended to replace [...] 03/29/2013 Document Reviewed: 02/02/2013ExitCare? Patient Information ?2014 [employer]. This information is not intended to replace advice given to you by your health care provider. Make sure you discuss any questions you have with your health care provider. Normal [facility] ED Patient Summaryon 017 ED Patient Summary (Inserted Image. Mireya ble to display) [place] [id number] Patient Discharge Instructions Person Information Name: YVONNE GOODEN Age: 22 Years Date: 06/13/2017 6:37 PMDischarge Diagnosis: Acute UTI; Pharyngitis Primary Care Physician: JARED, XXXX Provider InformationPrimary Provider: Rony GUZMAN, ArnaldoylPhysician [employer] Member:None The exam and treatment you received in the Emergency Department were for an urgent problem and are not intended as complete care. It is important that you follow up with a doctor, nurse practitioner, or physician?s food and beverage assistant for ongoing care. If your symptoms [...] [address] Atkinson in [facility] In 3 days 06/16/2017 With: Address: When: XXXX [place], [place] In 3 days 06/16/2017 In the event that this physician does not participate in your insurance network, please consult with your insurance company to find a nearby participating provider. Patient Education Materials:Upper Respiratory Infection, Adult; Urinary Tract Infection, Meoo-or-Ccuz Medications Given:Medication Dose Route cephalexin 500.00 mg Oral Medication Information:New MedicationsPrinted Prescriptionscephalexin (Keflex 500 mg Cap) 1 Capsules By Mouth every 6 hours for 7 Days. Refills: 0.Medications to Continue with No ChangesOther Medicationsethinyl estradiol-norgestimate (TriNessa oral tablet) fluoxetine (FLUoxetine 10 mg Cap) Comment: Pharmacy Information: Thank you for choosing [facility] Patient Education Materials: Upper Respiratory Infection, [...] other symptoms. HOME CARE INSTRUCTIONS? Only take wyof-yip-wwhkgyp or prescription medicines for pain, discomfort, or [...] 09/26/2012 Document Reviewed: 10/10/2014ExitCare? Patient Information ?2015 [employer]. This information is not intended to replace [...] 03/29/2013 Document Reviewed: 02/02/2013ExitCare? Patient Information ?2014 [employer]. This information is not intended to replace advice given to you by your health care provider. Make sure you discuss any questions you have with your health care provider.GIACOMO Barrios ALICYN D , have received the following patient education materials/instructions and have verbalized understanding: Patient Education Materials: Upper Respiratory Infection, Adult; Urinary Tract Infection, Agwq-fm-Fkgm Follow-up Instructions: With: Address: When: Follow-up for [address] Atkinson in [facility] In 3 days 06/16/2017 With: Address: When: XXXX NONE , [place] In 3 days 06/16/2017 Prescriptions: [cephalexin (Keflex 500 mg Cap)] Patient Signature Date Clinician/Nurse Signature Date 06/13/17 19:46:34 Normal [facility] U BetaHcg [place] 06-13-2017 HCG.beta subunit molar conc (U) Negative Normal [facility] Comment on above: Performed By: #### 2 [id number], [id number], [id number] ####[facility] [address] MARCUS Antony [address] UA With Cult Reflexon 2016 Bacteria LM Ql (Urine sed) TRACE Normal Trace [facility] Comment on above: Performed By: #### 2 [id number], [id number], [id number] ####[facility] [address] [place] [address] Bilirubin Ql (U) Negative Normal Negative [facility] Comment on above: Performed By: #### 2 [id number], [id number], [id number] ####[facility] [address] [place] [address] Clarity Nom (U) CLEAR Normal Clear [facility] Comment on above: Performed By: #### 2 [id number], [id number], [id number] ####[facility] [address] [place] [address] Color Auto Nom (U) STRAW Abnormal Yellow [facility] Comment on above: Performed By: #### 2 [id number], [id number], [id number] ####[address] [address] Epithelial cells.squamous LM.HPF #/area (Urine sed) 0-2 Normal 0-2 [facility] Comment on above: Performed By: #### 2 [id number], [id number], [id number] ####[facility] [address] [place] [address] Glucose Test strip mass conc (U) Negative Normal Negative [facility] Comment on above: Performed By: #### 2 [id number], [id number], [id number] ####[facility] [address] [place] [address] Hemoglobin Test strip Ql (U) TRACE Abnormal Negative [facility] Comment on above: Performed By: #### 2 [id number], [id number], [id number] ####[facility] [address] [place] [address] Ketones mass conc (U) Negative Normal Negative [place] Comment on above: Performed By: #### 2 [id number], [id number], [id number] ####[address] [address] [place].plasma/Lithiu m.RBC mass ratio (Bld) 0-3 Normal 0-3 [facility] Comment on above: Performed By: #### 2 [id number], [id number], [id number] ####[place] [address] [place] [address] Mucus LM Ql (Urine sed) 1+ Normal [facility] Comment on above: Performed By: #### 2 [id number], [id number], [id number] ####[address] [address] Nitrite Test strip Ql (U) Negative Normal Negative [facility] Comment on above: Performed By: #### 2 [id number], [id number], [id number] ####[address] [address] pH Test strip (U) 5.5 [pH] Invalid Interpretation Code 5.0-9.0 [facility] Comment on above: Performed By: #### 2 [id number], [id number], [id number] ####[address] [address] Protein mass conc (U) Negative Normal Negative [place] Comment on above: Performed By: #### 2 [id number], [id number], [id number] ####[address] [address] Specific gravity Relative Density (U) 1.020 Invalid Interpretation Code 1.005-1.03 0 [facility] Comment on above: Performed By: #### 2 [id number], [id number], [id number] ####[address] [address] UA Spec Desc Clean Catch Normal [facility] Comment on above: Performed By: #### 2 [id number], [id number], [id number] ####[address] [address] Urobilinogen Test strip Qn (U) 0.2 {Krista'U}/dL Normal 0.0-1.0 [facility] Comment on above: Performed By: #### 2 [id number], [id number], [id number] ####[facility] [address] [place] [address] WBC Auto Ql (U) 1+ Abnormal Negative [facility] Comment on above: Performed By: #### 2 [id number], [id number], [id number] ####[facility] [address] [place] [address] WBC LM.HPF #/area (Urine sed) 16-25 Abnormal 0-5 [facility] Comment on above: Performed By: #### 2 [id number], [id number], [id number] ####[facility] [address] [place] [address] Vital Signs Date Time Vital Sign Value Performing Clinician Facility 01-02-2025 11:11-0400 Body height 162.6 cm Dejan Bipin DO Work Phone: [facility] 01-02-2025 11:11-0400 Body mass index (BMI) [Ratio] 25.4 kg/m2 Dejan Bipin DO Work Phone: [facility] 01-02-2025 11:11-0400 Body weight 67.13 kg Dejan Bipin DO Work Phone: [facility] 01-02-2025 11:11-0400 Diastolic blood pressure 70 mm[Hg] Dejan Bipin DO Work Phone: [facility] 01-02-2025 11:11-0400 Systolic blood pressure 110 mm[Hg] Dejan Bipin DO Work Phone: [facility] 08-22-2024 15:06-0500 Body mass index (BMI) [Ratio] 26.45 kg/m2 Dejan Bipin DO Work Phone: [facility] 08-22-2024 15:06-0500 Body weight 66.13 kg Dejan Bipin DO Work Phone: [facility] 08-22-2024 15:06-0500 Diastolic blood pressure 60 mm[Hg] Dejan Bipin DO Work Phone: [facility] 08-22-2024 15:06-0500 Systolic blood pressure 118 mm[Hg] Dejan Bipin DO Work Phone: [facility] 10-17-2023 11:50-0400 Body height 162.56 cm [employer] CO[employer] MACHINE OPERATORAshley Swartz Work Phone: [facility] 10-17-2023 11:50-0400 Body temperature 97.9 [degF] [employer] MACHINE OPERATOR Juan Swartz Work Phone: [facility] 10-17-2023 11:50-0400 Body weight 66.1 kg [employer] MACHINE OPERATOR Juan Swartz Work Phone: [facility] 10-17-2023 11:50-0400 Diastolic blood pressure 60 mm[Hg] [employer] MACHINE OPERATORAshley Swartz Work Phone: [facility] 10-17-2023 11:50-0400 Heart rate 91 /min [employer] MACHINE OPERATOR Juan Swartz Work Phone: [facility] 10-17-2023 11:50-0400 Respiratory rate 16 /min [employer] MACHINE OPERATORAshley Swartz Work Phone: [facility] 10-17-2023 11:50-0400 SaO2% (BldA) [Mass fraction] 97 % [employer] MACHINE OPERATORAshley Swartz Work Phone: [facility] 10-17-2023 11:50-0400 Systolic blood pressure 126 mm[Hg] [employer] MACHINE OPERATOR Juan Swartz Work Phone: [facility] Encounters Encounter Date Encounter Type Care Provider Facility Start: 01-02-2025 End: 01-02-2025 Bamboo flowsheet Dejan Bipin DO Work Phone: [facility] Start: 01-02-2025 End: 01-02-2025 Bamboo flowsheet Dejan Bipin DO Work Phone: [facility] Start: 01-02-2025 End: 01-02-2025 ambulatory DEJAN BIPIN Not Available Start: 01-02-2025 End: 01-02-2025 Office outpatient visit 15 minutes Dejan Bipin DO Work Phone: [facility] Comment on above: Miscarriage ([facility] ) Start: 11-27-2024 End: 11-27-2024 Clinisync Result Encounter Dejan Bipin DO Work Phone: [facility] Unsolicited Start: 11-27-2024 End: 11-27-2024 Clinisync Result Encounter Dejan Bipin DO Work [...] 10-17-2023 End: 10-17-2023 Emergency department patient visit [employer] MACHINE OPERATOR Juan Swartz Work Phone: [facility] Work Phone: Start: 05-06-2022 End: 05-06-2022 ambulatory DO Juan Cerna Work Phone: [facility] Work Phone: Start: 05-06-2022 End: 05-06-2022 Patient encounter procedure DO Juan Cerna Work Phone: [facility] Main [place] Start: 02-26-2020 End: 02-27-2020 Patient encounter procedure ROCCO WEBBER Facility:H1 Start: 02-02-2018 End: 02-03-2018 Patient encounter Mirza Cheng Facility:CD:[id number] Start: 01-28-2018 End: 01-29-2018 Patient encounter Mirza Cheng Facility:CD:[id number] Start: 09-10-2017 End: 09-10-2017 Emergency department patient visit XXXX NONE Facility:[facility] Start: 06-13-2017 End: 06-13-2017 Emergency department patient visit XXXX NONE Facility:[facility] Procedures Date Procedure Procedure Detail Performing Clinician Start: 01-02-2025 Urnls dip stick/tabl et rgnt non-auto w/o micrscp Dejan Bipin DO Work Phone: Start: 11-27-2024 [facility] PREG QUANT HCG Core y Bipin DO Work Phone: Start: 11-24-2024 [facility] PREG QUANT HCG Core y Bipin DO Work Phone: Start: 11-22-2024 US OB TRANSVAGINAL Core y Bipin DO Work Phone: Start: 08-28-2024 [facility] PREG QUANT HCG Core y Bipin DO Work Phone: Start: 10-17-2023 Streptococcus pyogen es antigen assay [employer] MACHINE OPERATOR Juan Swartz Work Phone: Plan of Treatment Date Care Activity Detail Author Start: 12-08-2024 End: 12-08-2024 ambulatory 12/08/2024 10:00 AM EDT Initial [facility] [address] [place] [address] [facility] Start: 12-08-2024 End: 12-08-2024 Professional / ancillary services management 12/08/2024 9:30 AM EDT Ancillary Procedure [facility] [address] [place] [place] [id number] [facility] Start: 08-22-2024 End: 08-22-2024 Patient encounter procedure 08/22/2024 2:10 PM EST Office Visit [facility] [address] [place] [address] BipinMckenzie arredondoy, DO [address] [place] [address] [place] [address] Arrived [facility] Comment on above: Arrived Start: 08-22-2024 End: 08-22-2025 DHEA DHEA Lab Routine PCOS (polycystic ovarian syndrome) Expected: 08/22/2024 (Approximate), Expires: 08/22/2025 [facility] Comment on above: Expected: 08/22/2024 (Approximate), Expires: 08/22/2025 Start: 10-17-2023 SARS-CoV-2, Influenz a & RSV (PCR) SARS-CoV-2, Influenza & RSV (PCR) [facility] Start: 10-17-2023 [facility] CBC W Auto Different ial panel - Blood CBC and differential Lab Routine PCOS (polycystic ovarian syndrome) Ordered: 08/22/2024 [facility] Healthcare Comment on above: Ordered: 08/22/2024 DHEA-sulfate DHEA-sulfate Lab Routine PCOS (polycystic ovarian syndrome) Ordered: 08/22/2024 [facility] Comment on above: Ordered: 08/22/2024 Follicle stimulating hormone Follicle stimulating hormone Lab Routine PCOS (polycystic ovarian syndrome) Ordered: 08/22/2024 [facility] Comment on above: Ordered: 08/22/2024 hCG, quantitative, hCG, quantitative, Lab Routine PCOS (polycystic ovarian syndrome) Ordered: 08/22/2024 [facility] Healthcare Work Phone: Comment on above: Ordered: 08/22/2024 Hemoglobin A1c/Hemoglobin.total in Blood Hemoglobin A1c Lab Routine Hormone imbalance Ordered: 08/22/2024 [facility] Comment on above: Ordered: 08/22/2024 Luteinizing hormone Luteinizing hormone Lab Routine PCOS (polycystic ovarian syndrome) Ordered: 08/22/2024 [facility] Comment on above: Ordered: 08/22/2024 Patient Education Strep Throat (DC) [facility] Work Phone: Patient referral [facility] Work Phone: Progesterone Progesterone Lab Routine Hormone imbalance Ordered: 08/22/2024 [facility] Comment on above: Ordered: 08/22/2024 Thyrotropin [Units/volume] in Serum or Plasma TSH Lab Routine PCOS (polycystic ovarian syndrome) Ordered: 08/22/2024 [facility] Comment on above: Ordered: 08/22/2024 Thyroxine (T4) free [Mass/volume] in Serum or Plasma T4, free Lab Routine PCOS (polycystic ovarian syndrome) Ordered: 08/22/2024 [facility] Comment on above: Ordered: 08/22/2024 Payers Date Payer Category Payer Private Health Insurance [facility] [id number] 2021 Unknown [id number] 2017 Self-pay 1997 Unknown [id number] 1997 Unknown [id number] 1997 Unknown [id number] 1959 Unknown [id number] Private Health Insurance [facility] [id number] Unknown Valerie VELOZ/JACOBO [id number] Unknown [id number] Social History Date Type Detail Facility Tobacco smoking stat us [facility] Unknown if ever smoked [facility] Work Phone: Start: 1995 Sex Assigned At Female F [facility] Start: 02-07-2023 End: 10-17-2023 Tobacco smoking status NCIS Never smoked tobacco (finding) [facility] Start: 07-13-2023 End: 01-02-2025 Alcoholic beverage intake Current drinker of alcohol [...] gender (finding) [facility] NEGATED: Highlighted row [facility] History of Present illness Narrative 01-02-2025 Ana Cristina Romero, [facility] [place] - 01/02/2025 10:50 AM EDT Note Date & Type Note Facility 01-02-2025 History of Presen t illness Narrative Reason for Appointment: Patient ID: Yvonne Baker is a 29 y.o. female who presents for Miscarriage (Pt present today to discuss recent miscarriage.) Patient presents today for Acute Visit. MEDICATIONS Current Outpatient Medications Medication Instructions ondansetron ODT (Zofran-ODT) 4 MG disintegrating tablet ALLERGIES Allergies Allergen Reactions Bee Venom Honey Bee Venom Other Reaction(s): Unknown Reaction PROBLEMS Active Ambulatory Problems Diagnosis Date Noted [...] nursing note reviewed. Exam conducted with a family sociologist present. Vitals: Estimated body mass index is 25.4 kg/m as calculated from the following: Height as of this encounter: 5' 4 . Weight as of this encounter: 148 lb. BP: 110/70 No LMP recorded (lmp unknown). ASSESSMENT & PLAN ICD-10-CM 1. Miscarriage ([facility]) O03.9 POCT urinalysis dipstick manually resulted Patient presents today to follow up after a recent miscarriage. I have discussed HCG lab levels and miscarriage with patient in detail. Patient has been advised to wait a full cycle until trying to conceive again, patient voiced understanding, and will call when so office can call in progesterone suppositories. Follow Up: As needed Documented by Ana Cristina Romero LPN on behalf of: Dejan Voss DO documented in this encounter [facility] History of Present illness Narrative 08-22-2024 Ana Cristina Romero LPN - 08/22/2024 2:10 PM EST Note Date [...] Date Anxiety with depression C. difficile colitis 2013 History of medical problems HISTORY PAST MEDICAL HISTORY SOCIAL HISTORY Past Medical History: Diagnosis Date Anxiety with depression C. difficile colitis 2013 History of medical problems sensitive stomach Social [...] Past Surgical History: Procedure Laterality Date APPENDECTOMY 2005 COLPOSCOPY 08/2021 Negative PAP SMEAR (10/06)- Neg [...] nursing note reviewed. Exam conducted with a family sociologist present. Vitals: Estimated body mass index is [...] Note Facility Evaluation [facility] Work Phone: Evaluation note Note Date & Type Note Facility Evaluation note Diagnosis Encounter for fertility planning PCOS (polycystic ovarian syndrome) Polycystic ovaries Hormone imbalance documented in this encounter [facility] Evaluation note Note Date & Type Note Facility Evaluation note Diagnosis Miscarriage ([facility]) Unspecified spontaneous without mention of complication documented in this encounter [facility] Healthcare Summary Purpose Family History No Family History [...] section and content) DATE CREATED AUTHOR [facility]/16/2018 [facility] DATE CREATED AUTHOR AUTHOR'S ORGANIZ ATION 03/06/2020 [facility] DATE CREATED AUTHOR AUTHOR'S ORGANIZ ATION 01/02/2024 [facility] DATE CREATED AUTHOR AUTHOR'S ORGANIZ ATION 01/04/2025 [facility] d[facility] Specialists EPIC Care Teams (unrecognized sec tion [...] October 17, 2023 End: October 17, 2023 Quality Process Engineer Relationship Specialty Start Date End Date Gregorio Garcia MD [address] [place] [address] PCP - General Family Medicine 10/18/23 Quality Process Engineer Relationship Specialty Start Date End Date Gregorio Garcia MD [address] [place] [address] PCP - General Family Medicine 10/18/23 Quality Process Engineer Relationship Specialty Start Date End Date Gregorio Garcia MD [address] [place] [address] PCP - General Family Medicine 10/18/23 Quality Process Engineer Relationship Specialty Start Date End Date Gregorio Garcia MD PCP - General Family Medicine 10/18/23 Quality Process Engineer Relationship Specialty Start Date End Date Gregorio Garcia MD [address] [place] [address] PCP - General Family Medicine 10/18/23 Goals (unrecognized section and content) Goals may be documented in a n alternate sectionGoals may be documented in an alternate section Reason for Visit (unrecogniz ed section and content) Reason Comments Fertility Consult Breast Pain Reason Comments Miscarriage Pt present today to discuss recent miscarriage. FOR RECORDS PERTAINING TO PATIENTS WHO ARE [...] BE BASED ON THE PRIMARY CLINICAL RECORDS. [employer] provides no warranty or guarantee of the accuracy or completeness of information in this document.
--- OUTSIDE RECORDS SUMMARY | 2025-01-06 08:22 | XMS_ITS | Encounter Summary ---
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 No / Unsure 02/18/2023 8:46 AM EDT documented as of this encounter Plan of Treatment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 documented as of this encounter Visit Diagnoses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documented in this encounter Care Teams Export Clerk Relationship Specialty Start Date End Date Juan Cerna DO [address] [facility] [address] [place] [address] PCP - General Family Medicine 02/02/23 10/17/23 Gregorio Garcia MD [address] [place] [id number] PCP - General Family Medicine 10/18/23 documented as of this encounter
--- OUTSIDE RECORDS SUMMARY | 2025-01-06 08:22 | XMS_ITS | Encounter Summary ---
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[place], [place]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 Ordering Physician: Dejan Voss D.O. Date of Service: 04/10/23 Procedure(s): US OB growth Accession Number(s): [id number] cc: Dejan Voss D.O.; Physician,Non-Staff [place] [address] Patient Name: YVONNE BAKER MRN: [id number] date: 1995 Sex: F Assigned Patient Location: US Current Patient Location: Accession/Order Number: [id number] Exam Date: 04/10/2023 14:15 Report Date: 04/11/2023 02:03 At the request of: DEJAN VOSS Procedure: US OB growth EXAM: US OB growth HISTORY: size inconsistent with dates O26.849 EXAMINATION: US OB growth HISTORY: size inconsistent with dates O26.849 COMPARISON: Ultrasound OB anatomy 02/18/2023 FINDINGS: Heart Rate: 127.4 bpm Number: 1.0 Position: CEPHALIC Amniotic Fluid Volume: 14.4 cm Maximum Vertical Pocket: 3.9 cm BIOMETRY: BPD: 9.0 cm cm; 36 weeks 2 days HC: 31.6 cmcm; 35 weeks 4 days AC: 31.4 cm cm; 35 weeks 2 days FL: 6.9 cm cm; 35 weeks 2 days EFW: 2676.3 grams; 45% FL/AC: 21.9 FL/BPD: 76.7 HC/AC: 1.0 GESTATIONAL AGE: Age by EDC: 35 weeks 4 days QUIQUE by EDC: 05/11/2023 Age by US: 35 weeks 4 days QUIQUE by US: 05/11/2023 US/US OB growth IMPRESSION: 1. Single live intrauterine with growth detailed above. COMPARISON: None. TECHNIQUE: FINDINGS: IMPRESSION: Electronically authenticated by: DANE WASHINGTON Date: 04/11/2023 02:03 Dictated By: Dane Washington M.D. Signed By: 04/11/23204 DD/ 2 TD/TT: Barrel Lapper: Procedure Note Radiology, Radiologist, MD - 04/11/2023 [place] [address] Ultrasound Report Signed Patient: YVONNE BAKER DMR#: [id number] : 1995Acct:[id number] Age/Sex: 28 / FADM Date: 04/10/23 Loc: US Attending Dr: Dejan Voss D.O. Ordering Physician: Dejan Voss D.O. Date of Service: 04/10/23 Procedure(s): US OB growth Accession Number(s): [id number] cc: Dejan Voss D.O.; Physician,Non-Staff [place] [address] Patient Name: YVONNE BAKRE MRN: [facility]:[id number] date: 1995 Sex: F Assigned Patient Location: US Current Patient Location: Accession/Order Number: [id number] Exam Date: 04/10/2023 14:15 Report Date: 04/11/2023 02:03 At the request of: DEJAN VOSS Procedure: US OB growth EXAM: US OB growth HISTORY: size inconsistent with dates O26.849 EXAMINATION: US OBgrowth HISTORY: size inconsistent with dates O26.849 COMPARISON: Ultrasound OB anatomy 02/18/2023 FINDINGS: Heart Rate: 127.4 bpm Number: 1.0 Position: CEPHALIC Amniotic Fluid Volume: 14.4 cm Maximum Vertical Pocket: 3.9 cm BIOMETRY: BPD: 9.0 cm cm; 36 weeks 2 days HC: 31.6 cmcm; 35 weeks 4 days AC: 31.4 cm cm; 35 weeks 2 days FL: 6.9 cm cm; 35 weeks 2 days EFW: 2676.3 grams; 45% FL/AC: 21.9 FL/BPD: 76.7 HC/AC: 1.0 GESTATIONAL AGE: Age by EDC: 35 weeks 4 days QUIQUE by EDC: 05/11/2023 Age by US: 35 weeks 4 days QUIQUE by US: 05/11/2023 US/US OB growth IMPRESSION: 1. Single live intrauterine with growth detailed above. COMPARISON: None. TECHNIQUE: FINDINGS: IMPRESSION: Electronically authenticated by: DANE WASHINGTON Date: 04/11/2023 02:03 Dictated By: Dane Washington M.D. Signed By:04/11/23204 DD/ 2 TD/TT: Barrel Lapper: us Dejan Voss DO [facility] Final Result documented in this encounter Visit Diagnoses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documented in this encounter Care Teams Pet Caretaker Relationship Specialty Start Date End Date Juan Cerna DO [address] [facility] [address] [place] [address] PCP - General Family Medicine 02/02/23 10/17/23 Gregorio Garcia MD [address] [facility] [place] [address] PCP - General Family Medicine 10/18/23 documented as of this encounter
--- OUTSIDE RECORDS SUMMARY | 2025-01-06 08:22 | XMS_ITS | Encounter Summary ---
Author Organization [facility] Address [address] [place] [address] Care Team Providers Care Lowerator Operator Name Role Phone Gregorio Garcia MD Primary Care Provider [phone] Encounter Details Date Type Department Care Team (Late st Contact Info) Description 01/02/2025 Bamboo flowsheet [facility] OB [address] [place] [phone] Juan Voss DO [address] [facility] [address] Luli [place], [id number] Social History Tobacco Use Types Packs/Day Years Used Date Smoking Tobacco: Never Alcohol Use Standard Drinks/Week Comments Yes 0 (1 standard drink = 0.6 oz pure alcohol) Alcohol: 6 or more drinks / less than monthly; 1 or 2 drinks on typical day. Caffeine: occasional AUDIT-C Answer Date Recorded Q1: How often do you have a drink containing alc ohol? Never 07/08/2023 Q2: How many drinks containi ng alcohol do you have on a typical day when you are drinking? 1 or 2 07/08/2023 Q3: How often do you have si x or more drinks on one occasion? 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
--- OUTSIDE RECORDS SUMMARY | 2025-01-06 08:22 | XMS_ITS | Patient Health Record ---
Author Organization [facility] Address [address] [place] [address] Care Team Providers Care Paper Slitter Name Role Phone rGegorio Garcia Primary Care Provider Dane Chowdhury [facility] [phone] Allergies Allergen (clinical drug ingredient) Drug/Non Drug Allergy documented on EMR Reaction Allergy Type Onset Date Status bee sting (uncoded) anaphylaxis Allergy Active Results Component Value Reference Range Notes [facility]- WRIST 3 VIEW LEFT 74373 Reviewed date:07/25/2024 03:44:15 PM Interpretation: Performing Lab: Notes/Report: [facility]- WRIST 3 VIEW RIGHT 7311 0 Reviewed date:07/25/2024 03:44:09 PM Interpretation: Performing Lab: Notes/Report: Reason For Referral No Information Social History Tobacco Use: Social History Observation Description Date Details (start date - stop date) Never Smoker NA - NA Tobacco Control (Standard) Question Answer Notes Tobacco use: Nonsmoker Vital Signs Height 5'4 in 06/26/2024 Weight 150 lbs 06/26/2024 BMI 25.74 06/26/2024 Encounters Encounter Location Date Provider Diagnosis [facility] [address] [place] [address] [place] [address] 06/26/2024 Dane Cordova Pain in right wrist M25.531 ; Ganglion, right wrist M67.431 ; Pain in left wrist M25.532 and Ganglion, left wrist M67.432 Assessments Encounter Date Diagnosis (ICD Code) Assessment Notes Treatment Notes Treatment Clinical Notes Section Notes 06/26/2024 Pain in right wrist (ICD-10 - M25.531) 06/26/2024 Ganglion, right wrist (ICD-10 - M67.431) 06/26/2024 Pain in left wrist (ICD-10 - M25.532) 06/26/2024 Ganglion, left wrist (ICD-10 - M67.432) 06/26/2024 Other For the bilateral wrist masses I discussed that these likely represent bone although could be small ganglion cyst. She is agreeable to observation for now. We have discussed the option of further diagnostics. She will follow-up in 3 months to reassess her clinical progress. Import medication Plan Of Treatment No Information Insurance Providers Payer Name Payer Address Payer Phone Subscriber Number Group Number Insured Name Patient Relationship to Insured Coverage Start Date Coverage End Date [facility] [address] [address] [place] [address] [id number] ROBERTO CANALES Spouse - patient is the spouse of the insured Medical (General) History Medical History History ICD Code Anxiety
--- OUTSIDE RECORDS SUMMARY | 2025-01-06 08:22 | XMS_ITS | Encounter Summary ---
Author Organization [facility] Address [address] [place] [address] Care Team Providers Care Claim Administrator Name Role Phone Juan Cerna DO Primary Care Provider [phone] Gregorio Garcia MD Primary Care Provider [phone] Encounter Details Date Type Department Care Team (Late st Contact Info) Description 01/13/2023 Abstract [facility] OB [address] [facility] [place] [address] Juan Voss DO [address] [facility] [address] [facility] [address] [place], [place] [id number] Social History Tobacco Use Types Packs/Day Years Used Date Smoking Tobacco: Never Assessed Comments Unknown Sex and Gender Information Value Date Recorded Sex Assigned at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 Legal Sex Female 6:49 PM EDT Gender Identity Female 09/30/2022 6:49 PM EDT Sexual Orientation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 documented as of this encounter Plan of Treatment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 documented as of this encounter Visit Diagnoses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documented in this encounter Care Teams Claim Administrator Relationship Specialty Start Date End Date Juan Cerna DO [address] [facility] [place] [address] PCP - General Family Medicine 02/02/23 10/17/23 Gregorio Garcia MD [address] [facility] [place] [address] PCP - General Family Medicine 10/18/23 documented as of this encounter
--- OUTSIDE RECORDS SUMMARY | 2025-01-06 08:22 | XMS_ITS | Clinical Summary ---
Author Organization [facility] Address [address] [place] [address] Care Team Providers Care Industrial Economist Name Role Phone Gregorio Garcia MD Primary Care Provider [phone] Allergies Active Allergy Reactions Criticality Noted Date Comments Bee Venom 02/09/2023 Honey Bee Venom 10/17/2023 Other Reaction(s): Unknown Reaction Medications ondansetron ODT (Zofran-ODT) 4 MG disintegrating tablet 10/18/19 23 Active Progesterone 200 MG suppositoryIndicat ions:History of miscarriage Insert 200 mg into the vagina at bedtime Insert suppository vaginally every night at bedtime until 12 weeks gestation 30 suppository 01/05/20 25 025 Active Encounters Date Type Department Care Team Description 01/04/[address] [address] [place] [address] Shayna Munguia LPN 01/02/2025 10:50 AM EDT Office Visit [facility] [address] [place] [address] Dejan Voss, DO Miscarriage ([facility]) 01/02/2025 Bamboo flowsheet [facility] [address] [place] [address] Dejan Voss DO 12/18/[address] [address] [place] [address] Dejan Voss, 12/08/[address] [address] [place] [address] Shayna Munguia, PLASTICS REPAIRER 12/06/2024 Abstract [facility] [address] [place] [address] Dejan Voss, DO 12/05/[address] [facility] [address] [place] [address] Shayna Munguia, PLASTICS REPAIRER 11/27/[address] [facility] [address] [place] [phone] Lucina Camargo, PLASTICS REPAIRER 11/27/2024 Clinisync Result Encounter NOMS External Department Unsolicited Dejan Voss, DO 11/24/2024 Clinisync Result Encounter [facility] External Department Unsolicited Dejan Voss, DO 11/22/2024 Clinisync Result Encounter [facility] External Department Unsolicited Dejan Voss, DO 11/22/[address] [address] [place] [phone] Dejan Voss, DO from Last 3 Months Family History Medical History Relation Name Comments No Known Problems Brother 2 brothers Appendix Cancer Father Prostate cancer Maternal Grandfather Gallbladder disease Mother Hypertension Mother Stage 2 Carcinoma Mother Thyroid disease Mother No Known Problems Sister 3 sisters Relation Name Status Comments Brother Father Maternal Grandfather Mother Alive Sister Social History Tobacco Use Types Packs/Day Years Used Date Smoking Tobacco: Never Tobacco Cessation:Counseling Given: Not Answered Alcohol Use Standard Drinks/Week Comments Yes 0 [...] 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[place], [place]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 Last Filed Vital Signs Vital Sign Reading Time Taken Comments Blood Pressure 110/70 01/02/2025 11:11 AM EDT Pulse - - Temperature - - Respiratory Rate - - Oxygen Saturation - - Inhaled Oxygen Concentration - - Weight 67.1 kg (148 lb) 01/02/2025 11:11 AM EDT Height 162.6 cm (5' 4 ) 01/02/2025 11:11 AM EDT Body Mass Index 25.4 01/02/2025 11:11 AM EDT Plan of Treatment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 Procedures Procedure Name Priority Date/Time Associated Diagnosis Comments POCT URINALYSIS DIPSTICK Routine 01/02/2025 11:21 AM EDT Miscarriage ([facility]) [facility] PREG QUANT HCG Routine 11/27/2024 7: 10 AM EDT [facility] PREG QUANT HCG Routine 11/24/2024 10 :36 AM EDT OB TRANSVAGINAL 11/22/2024 4: 47 PM EDT [facility] PREG QUANT HCG Routine 11/22/2024 4: 42 PM EDT from Last 3 Months Results * POCT urinalysis dipstick manually resulted (01/02/2025 11:21 AM EDT) Color, UA Yellow Clarity, UA Clear Glucose, UA Negative Negative - 1999(110) ++++ mg/dL Bilirubin, UA Negative Negative - 4(70) +++ mg/dL Ketones, UA Negative Negative - 160(16) ++++ mg/dL Spec Grav, UA 1.025 1 - 1.03 Blood, UA Negative Negative - 50 Ronal/mcL pH, UA 6.0 5 - 9 Protein, UA Negative Negative - 1999(20) ++++ mg/dL Urobilinogen, UA 0.2 0.2 - 12 mg/dL Leukocytes, UA Negative Negative - 500+++ Gilbert/mcL Nitrite, UA Negative Negative - Positive Urine 01/02/2025 11:2 1 AM EDT Dejan Voss DO POINT OF CARE TEST ENTER/EDIT OR DERABLES Final Result * [facility] PREG QUANT HCG (11/27/2024 7:10 AM EDT) Only the most recent of3 resultswithin the time period is included. Pathologist [facility] HCG QUANTITATIVE 114 mIU/mL [facility] Comment: 5-50 0.2-1 WEEK 50-500 1-2 WEEKS 100-5,000 2-3 WEEKS 500-10,000 3-4 WEEKS 1,000-50,000 4-5 WEEKS 10,000-100,000 5-6 WEEKS 15,000-200,000 6-8 WEEKS 10,000-100,000 2-3 MONTHS 11/27/2024 7:10 AM EDT 11/27/2024 7:12 AM EDT Narrative [facility] - 11/27/2024 9:01 AM EDT Dejan Voss DO [facility] Final Result [facility] * US OB TRANSVAGINAL (11/22/2024 4:47 PM EDT) Anatomical Region Laterality Modality Other 11/22/2024 4:47 PM EDT Narrative 11/22/2024 4:50 [place] [address] Ultrasound Report Signed Patient: YVONNE BAKER MR#: [id number] : 1995 Acct:[id number] Age/Sex: 29 / F ADM Date: 11/22/24 Loc: US Attending Dr: Dejan Voss D.O. Ordering Physician: Dejan Voss D.O. Date of Service: 11/22/24 Procedure(s): US OB transvaginal Accession Number(s): [id number] cc: Dejan Voss D.O.; Gregorio Garcia M.D. [address] [address] Patient Name: YVONNE BAKER MRN: [id number] date: 1995 Sex: F Assigned Patient Location: US Current Patient Location: US Accession/Order Number: [id number] Exam Date: 11/22/2024 16:44 Report Date: 11/22/2024 [...] Jr., D.O. 11/22/2024 4:47 PM Dictation Location: [place] [address] Electronically authenticated by: [id number] Y Date: 11/22/2024 16:47 Dictated By: Brent Jonas M.D. Signed By: 11/22/24 1650 DD/ 1647 TD/TT: Machine Rigger: Procedure Note Radiology, Radiologist, - 11/22/2024 [place] [address] Ultrasound Report Signed Patient: YVONNE BAKER DMR#: [id number] : 1995Acct:[id number] Age/Sex: 29 / FADM Date: 11/22/24 Loc: US Attending Dr: Dejan Voss D.O. Ordering Physician: Dejan Voss D.O. Date of Service: 11/22/24 Procedure(s): US OB transvaginal Accession Number(s): [id number] cc: Dejan Voss D.O.; Gregorio Garcia M.D. [place] [address] Patient Name: YVONNE BAKER MRN: [id number] date: 1995 Sex: F Assigned Patient Location: US Current Patient Location: US Accession/Order Number: [id number] Exam Date: 11/22/2024 16:44 Report Date: 11/22/2024 16:47 At the request of: EDJAN VOSS DO Procedure: US OB transvaginal OB ultrasound. Reason for exam:Missed menses Comparison:None Technique: Transabdominal and transvaginal imaging of the uterus wasobtained. Findings: No definitive gestational sac is noted. The endometrium appearsheterogenous in echotexture with a small amount of presumed fluid present within the endometrial canal measuring 12 x 11 x 5 mm. A small endometrial cyst isalso noted. No fibroid. Endometrium measures 12.6 mm. Trace amount of simple free fluid is seen within the cul-de-sac. Right ovary measures 2.3 x 1.5 x 2.0 cm. Left ovary measures 2.7 x 1.4 x2.0 cm. No adnexal mass or cyst. Corpus luteum is noted involving the left ovary. US/US OB transvaginal Impression: No definitive gestational sac is noted. The endometrium appearsheterogenous in echotexture with a small amount of fluid seen within the endometrialcanal as well as a endometrial cyst. Findings are nonspecific. Differential considerations includes early IUP, miscarriage or possibly ectopicpregnancy, however no definitive evidence of ectopic is seen such asadnexal mass or complex free fluid. Correlation with beta hCG trend and repeat ultrasound is recommended to confirm viability. Impression dictated by: Brent Jonas Jr., D.O. 11/22/2024 4:47 PM Dictation Location: [place] [address] Electronically authenticated by: [id number] Y Date: 6:47 Dictated By: Brent Jonas M.D. Signed By:11/22/241649 DD/ 46 TD/TT: Machine Rigger: Dejan Voss DO [facility] Final Result from Last 3 Months Insurance [facility] Care Teams Industrial Economist Relationship Specialty Start Date End Date Gregorio Garcia MD [address] [place] [address] PCP - General Family Medicine 10/18/23
--- OUTSIDE RECORDS SUMMARY | 2025-01-06 08:22 | XMS_ITS | Encounter Summary ---
Author Organization [facility] Address [address] [place] [address] Care Team Providers Care Golf Course Assistant Name Role Phone Gregorio Garcia MD Primary Care Provider [phone] Encounter Details Date Type Department Care Team (Late st Contact Info) Description 12/06/2024 Abstract [facility] [address] [facility] [facility] [place] [place] [phone] Juan Voss, DO [address] [facility] [address] [place], [facility] Social History Tobacco Use Types Packs/Day [...] one occasion? 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
--- OUTSIDE RECORDS SUMMARY | 2025-01-06 08:22 | XMS_ITS | Encounter Summary ---
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
--- OUTSIDE RECORDS SUMMARY | 2025-01-06 08:22 | XMS_ITS | Encounter Summary ---
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
--- OUTSIDE RECORDS SUMMARY | 2025-01-06 08:22 | XMS_ITS | Encounter Summary ---
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 Ordering Physician: Dejan Voss D.O. Date of Service: 05/03/23 Procedure(s): US OB BPP w non-stress Accession Number(s): [id number] cc: CLARENCE LIVINGSTON ; Dejan Voss D.O. [place] [address] Patient Name: YVONNE BAKER MRN: [id number] date: 1995 Sex: F Assigned Patient Location: [facility] Current Patient Location: Accession/Order Number: [id number] Exam Date: 05/03/2023 11:30 Report Date: 05/03/2023 16:35 At the request of: DEJAN VOSS Procedure: US OB BPP w non-stress EXAMINATION: US OB BPP w non-stress HISTORY: DECREASED MOVEMENTS COMPARISON: No relevant comparison available. TECHNIQUE: Ultrasound biophysical profile was performed in the radiology department. FINDINGS: BREATHING MOVEMENTS: 2.0 GROSS BODY MOVEMENTS: 2.0 TONE: 2.0 QUALITATIVE AMNIOTIC FLUID VOLUME: 2.0 PRESENTATION: CEPHALIC HEART RATE: 137.8 bpm H.B./min AMNIOTIC FLUID VOLUME: 12.6 cm cm GESTATIONAL AGE: 38 weeks 6 days CONCLUSION: Total biophysical profile score: 8.0 Electronically authenticated by: SRINIVASAN WAHL Date: 05/03/2023 16:35 Dictated By: Srinivasan Wahl M.D. Signed By: 05/03/238 DD/ 34 TD/TT: Returner: Procedure Note Radiology, Radiologist, - 05/03/2023 [place] [address] Ultrasound Report Signed Patient: YVONNE BAKER DMR#: [id number] : 1995Acct:[id number] Age/Sex: 28 / FADM Date: 05/03/23 Loc: [facility] Attending Dr: Dejan Voss D.O. Ordering Physician: Dejan Voss D.O. Date of Service: 05/03/23 Procedure(s): US OB BPP w non-stress Accession Number(s): [id number] cc: CLARENCE LIVINGSTON ; Dejan Voss D.O. [place] [address] Patient Name: YVONNE BAKER MRN: [id number] date: 1995 Sex: F Assigned Patient Location: [facility] Current Patient Location: Accession/Order Number: [id number] Exam Date: 05/03/2023 11:30 Report Date: 05/03/2023 16:35 At the request of: DEJAN VOSS Procedure: US OB BPP w non-stress EXAMINATION: US OB BPP w non-stress HISTORY: DECREASED MOVEMENTS COMPARISON: No relevant comparison available. TECHNIQUE: Ultrasound biophysical profile was performed in the radiology department. FINDINGS: BREATHING MOVEMENTS: 2.0 GROSS BODY MOVEMENTS: 2.0 TONE: 2.0 QUALITATIVE AMNIOTIC FLUID VOLUME: 2.0 PRESENTATION: CEPHALIC HEART RATE: 137.8 bpm H.B./min AMNIOTIC FLUID VOLUME: 12.6 cm cm GESTATIONAL AGE: 38 weeks 6 days CONCLUSION: Total biophysical profile score: 8.0 Electronically authenticated by: SRINIVASAN WAHL Date: 05/03/2023 16:35 Dictated By: Srinivasan Wahl M.D. Signed By:05/03/23 1638 DD/ 1635 TD/TT: Returner: us Generic External Data Provider [facility] Final Result documented in this encounter Visit Diagnoses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documented in this encounter Care Teams Net Front End Developer Relationship Specialty Start Date End Date Juan Cerna DO [address] [place] [id number] PCP - General Family Medicine 02/02/23 10/17/23 Gregorio Garcia MD [address] [place] [phone] PCP - General Family Medicine 10/18/23 documented as of this encounter
--- OUTSIDE RECORDS SUMMARY | 2025-01-06 08:22 | XMS_ITS | Encounter Summary ---
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 I told her that I could do that for her and that I would be sending over an order toT for HCG levels. PVU documented in this encounter Plan of Treatment Scheduled Orders Name Type Priority Associated Diagnoses Orde r Schedule hCG, quantitative, Lab Routine Positive urine test ([facility]) Expected: 01/04/2025 (Approximate), Expires: 01/04/2026 documented as of this encounter Visit Diagnoses Diagnosis History of miscarriage Personal history of other genital system and obstetric disorders Positive urine test ([facility]) documented in this encounter Care Teams Supervisor Cell Efficiency Relationship Specialty Start Date End Date Gregorio Garcia MD [address] [place] [phone] PCP - General Family Medicine 10/18/23 documented as of this encounter
--- OUTSIDE RECORDS SUMMARY | 2025-01-06 08:23 | XMS_ITS | Encounter Summary ---
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
--- OUTSIDE RECORDS SUMMARY | 2025-01-06 08:24 | XMS_ITS | Patient Health Record ---
Author Organization The [facility] in [place] Address [address] [place] [address] Care Team Providers Care Advertisement Compositor Name Role Phone Jai Childs Primary Care Provider [phone] Allergies No Known Allergies Results Component Value Reference Range Notes US OB transvaginal Reviewed date:11/22/2024 08:00:41 PM Interpretation: Performing Lab: Notes/Report: Source Facility: [place] [address] Ultrasound Report Signed Patient: YVONNE BAKER MR#: [id number] : 1995 Acct:[id number] Age/Sex: 29 / F ADM Date: 11/22/24 Loc: US Attending Dr: Dejan Voss D.O. Ordering Physician: Dejan Voss D.O. Date of Service: 11/22/24 Procedure(s): US OB transvaginal Accession Number(s): [id number] cc: Dejan Voss D.O.; Toño Childs M.D. [place] [address] Patient Name: YVONNE BAKER MRN: [id number] date: 1995 Sex: F Assigned Patient Location: US Current Patient Location: US Accession/Order Number: [id number] Exam Date: 11/22/2024 16:44 Report Date: 11/22/2024 [...] Jr., D.O. 11/22/2024 4:47 PM Dictation Location: [place] [address] Electronically authenticated by: [id number] Y Date: 11/22/2024 16:47 Dictated By: Brent Jonas M.D. Signed By: 11/22/24 1650 DD/ 1647 TD/TT: Economic Analysis Director: [place] [address] Ultrasound Report Signed Patient: HERON BAKER MR#: [id number] : 1995 Acct:[id number] Age/Sex: 29 / F ADM Date: 11/22/24 Loc: US Attending Dr: Dejan Voss D.O. Ordering Physician: Dejan Voss D.O. Date of Service: 11/22/24 Procedure(s): US OB transvaginal Accession Number(s): [id number] cc: Dejan Voss D.O. ; Toño Childs M.D. The [address] [address] Patient Name: YVONNE BAKER MRN: [id number] date: 1995 Sex: F Assigned Patient Location: US Current Patient Location: US Accession/Order Number: [id number] Exam Date: 11/22/2024 16:44 Report Date: 11/22/2024 16:47 At the request of: DEJAN VOSS DO Procedure: US OB transvaginal OB ultrasound. Reason for exam:Miss ed menses Comparison:None Technique: Transabdominal and transvaginal imaging [...] miscarriage or possibly ectopic , however no definitiv e evidence of ectopic is seen such as adnexal mass or complex free fluid. Correlation with beta hCG trend and repeat ultrasound is recommended to confirm viability. Impression dictated by: Brent Jonas Jr., D.O. 11/22/2024 4:47 PM Dictation Location: [place] [address] Electronically authenticated by: [id number] Y Date: 11/22/2024 16:47 Dictated By: Brent Jonas M.D. Signed By: 11/22/241649 DD/ 46 TD/TT: Economic Analysis Director: LAURA DIAS HCG Reviewed date:11/24/2024 01:09:48 PM Interpretation: Performing Lab: Notes/Report: [facility] , HCG Quantitative 292 500-10,000 3-4 WEEKS 15,000-200,000 6-8 WEEKS 50-500 1-2 WEEKS 1,000-50,000 4-5 WEEKS 5-50 0.2-1 WEEK 100-5,000 2-3 WEEKS 10,000-100,000 5-6 WEEKS 10,000-100,000 2-3 MONTHS Performing Lab: see note ML - [facility] LB CBC AUTO DIFF Reviewed date:11/26/2024 06:23:41 PM Interpretation: Performing Lab: Notes/Report: [facility] , White Blood Count 8.2 4.0-11.0 10 3/uL Red Blood Count 4.43 4.20-5.40 10 6/uL Hemoglobin 13.7 12.0-16.0 g/dL Hematocrit 40.3 36.0-48.0 % Mean Corpuscular Volume 91.0 81.0-99.0 fL Mean Corpuscular Hemoglobin 30.9 26.7-34.0 pg Mean Corpuscular HGB Conc 34.0 29.9-35.2 g/dL Red Cell Distribution Width 13.2 11.0-15.0 % Platelet Count 266 150-450 10 3/uL Mean Platelet Volume 11.3 9.5-13.5 fL Neutrophils Percent Auto 57.3 43.0-75.0 % Lymphocytes Percent Auto 32.0 20.5-60.0 % Monocytes Percent Auto 8.8 1.7-12.0 % Eosinophils Percent Auto 1.2 0.9-7.0 % Basophils Percent Auto 0.5 0.2-2.0 % Immature Granulocytes Pct Auto 0.2 0.0-0.5 % Neutrophils Absolute Auto 4.7 1.4-6.5 10 3/uL Lymphocytes Absolute Auto 2.6 1.2-3.8 10 3/uL Monocytes Absolute Auto 0.7 0.3-0.8 10 3/uL Eosinophils Absolute Auto 0.1 0.0-0.7 10 3/uL Basophils Absolute Auto 0.0 0.0-0.1 10 3/uL Immature Granulocytes Abs Auto 0.02 0.00-0.03 10 3/uL Performing Lab: see note ML - The [facility] PREG QUANT HCG Reviewed date:11/26/2024 06:23:41 PM Interpretation: Performing Lab: Notes/Report: [facility] Quantitative 275 500-10,000 3-4 WEEKS 50-500 1-2 WEEKS 1,000-50,000 4-5 WEEKS 5-50 0.2-1 WEEK 10,000-100,000 2-3 MONTHS 100-5,000 2-3 WEEKS 15,000-200,000 6-8 WEEKS 10,000-100,000 5-6 WEEKS Performing Lab: see note ML - [facility] PROF CHEM 8 (BAS METB) Reviewed date:11/26/2024 06:23:41 PM Interpretation: Performing Lab: Notes/Report: [facility] , Sodium 138 136-145 mmol/L Potassium 3.7 3.5-5.1 mmol/L Chloride 102 98-107 mmol/L Carbon Dioxide 31.0 21.0-32.0 mmol/L Anion Gap 8.7 Glucose 98 74-106 mg/dL Blood Urea Nitrogen 18.0 7.0-18.0 mg/dL Creatinine 0.72 0.55-1.02 mg/dL Estimated GFR ( Lucretia >60 >=60 mL/min/1.73m 2 Estimated GFR (Non- Dania >60 >=60 mL/min/1.73m 2 BUN Creatinine Ratio 25.0 Calcium 9.3 8.5-10.1 mg/dL Performing Lab: see note ML - [facility] PREG QUANT HCG Reviewed date:11/22/2024 08:00:41 PM Interpretation: Performing Lab: Notes/Report: [facility] Quantitative 264 100-5,000 2-3 WEEKS 1,000-50,000 4-5 WEEKS 10,000-100,000 5-6 WEEKS 50-500 1-2 WEEKS 5-50 0.2-1 WEEK 15,000-200,000 6-8 WEEKS 10,000-100,000 2-3 MONTHS 500-10,000 3-4 WEEKS Performing Lab: see note ML - [facility] DHEA-Sulfate Reviewed date:08/29/2024 12:51:42 PM Interpretation: Performing Lab: Notes/Report: [facility] , DHEA-Sulfate 144.0 84.8-378.0 ug/dL Performing Lab: see note [facility] FSH Reviewed date:08/29/2024 12:51:42 PM Interpretation: Performing Lab: Notes/Report: [facility] , FSH 3.9 . mIU/mL Adult Female Range Postmenopausal 25.8 - 134.8 Ovulation phase 4.7 - 21.5 Luteal phase 1.7 - 7.7 Follicular phase 3.5 - 12.5 Performing Lab: see note [facility] LB Luteinizing Hormone(LH) Reviewed date:08/29/2024 12:51:42 PM Interpretation: Performing Lab: Notes/Report: [facility] , Luteinizing Hormone(LH) 8.0 . mIU/mL Adult Female Range Luteal phase 1.0 - 11.4 Ovulation phase 14.0 - 95.6 Follicular phase 2.4 - 12.6 Postmenopausal 7.7 - 58.5 Performing Lab: see note [facility] DHEA, Serum Reviewed date:09/02/2024 02:22:25 PM Interpretation: Performing Lab: Notes/Report: [facility] , DHEA, Serum 179 31-701 ng/dL This test was developed and its performance characteristics approved by the Food and Drug Administration. determined by [facility]. It has not been cleared or Performed at: [facility] Melt Room Operator: Betina Lindsey MD, Phone: [phone] [facility] [place], [place] [id number] Performing Lab: see note [facility] Progesterone Reviewed date:08/29/2024 12:51:42 PM Interpretation: Performing Lab: Notes/Report: [facility] , Progesterone 15.2 . ng/mL Postmenopausal 0.0 - 0.1 Follicular phase 0.1 - 0.9 First trimester 11.0 - 44.3 Luteal phase 1.8 - 23.9 Melt Room Operator: Kip Giles PhD, Phone: [phone] Third trimester 58.7 - 214.0 Second trimester 25.4 - 83.3 Ovulation phase 0.1 - 12.0 [address], [place] [id number] Performed at: [facility] Performing Lab: see note [facility] TSH Reviewed date:08/28/2024 07:18:48 PM Interpretation: Performing Lab: Notes/Report: [facility] , Thyroid Stimulating Hormone 1.097 0.358-3.740 uIU/mL Performing Lab: see note ML - [facility] LB T4 Reviewed date:08/28/2024 07:18:48 PM Interpretation: Performing Lab: Notes/Report: [facility] , T4 Thyroxine 8.40 4.80-13.90 ug/dL Performing Lab: see note ML - [facility] LB PREG QUANT HCG Reviewed date:08/28/2024 07:18:48 PM Interpretation: Performing Lab: Notes/Report: [facility] , HCG Quantitative <1 15,000-200,000 6-8 WEEKS 500-10,000 3-4 WEEKS 10,000-100,000 2-3 MONTHS 1,000-50,000 4-5 WEEKS 50-500 1-2 WEEKS 100-5,000 2-3 WEEKS 5-50 0.2-1 WEEK 10,000-100,000 5-6 WEEKS Performing Lab: see note ML - [facility] LB LIPID PROFILE Reviewed date:08/28/2024 07:18:48 PM Interpretation: Performing Lab: Notes/Report: [facility] , Triglycerides 40 <=150 mg/dL Cholesterol 152 <=200 mg/dL HDL Cholesterol 73 40-60 mg/dL <40 mg/dl - HIGH CARDIOVASCULAR RISK > or =60 mg/dl - LOW CARDIOVASCULAR RISK LDL Cholesterol Calculated 71.0 100-129 mg/dl NEAR OR ABOVE OPTIMAL >190 mg/dl VERY HIGH <100 mg/dl OPTIMAL 160-189 mg/dl HIGH 130-159 mg/dl BORDERLINE HIGH VLDL CHOLESTEROL 8.0 Chol HDL Ratio 2.1 3.3 - 4.4 LOW RISK >11.0 HIGH RISK 7.1 - 11.0 MODERATE RISK 4.4 - 7.1 AVERAGE RISK Performing Lab: see note ML - [facility] LB GLYCOHEMOGLOBIN A1C Reviewed date:08/28/2024 07:18:48 PM Interpretation: Performing Lab: Notes/Report: [facility] , Glycohemoglobin A1C 5.5 4.5-6.2 % ADA THERAPEUTIC TARGET < 7.0 > 7.0 ACTION SUGGESTED ADA RECOMMENDED LIMIT 4.0 - 6.0 Estimated Average Glucose 111 Performing Lab: see note ML - [facility] LB FREE T3 Reviewed date:08/28/2024 07:18:48 PM Interpretation: Performing Lab: Notes/Report: [facility] , Free T3 2.75 2.18-3.98 pg/mL Performing Lab: see note ML - [facility] LB CBC AUTO DIFF Reviewed date:08/28/2024 07:18:48 PM Interpretation: Performing Lab: Notes/Report: [facility] , White Blood Count 5.1 4.0-11.0 10 3/uL Red Blood Count 4.46 4.20-5.40 10 6/uL Hemoglobin 13.5 12.0-16.0 g/dL Hematocrit 40.5 36.0-48.0 % Mean Corpuscular Volume 90.8 81.0-99.0 fL Mean Corpuscular Hemoglobin 30.3 26.7-34.0 pg Mean Corpuscular HGB Conc 33.3 29.9-35.2 g/dL Red Cell Distribution Width 13.1 11.0-15.0 % Platelet Count 298 150-450 10 3/uL Mean Platelet Volume 11.1 9.5-13.5 fL Neutrophils Percent Auto 47.1 43.0-75.0 % Lymphocytes Percent Auto 43.0 20.5-60.0 % Monocytes Percent Auto 7.5 1.7-12.0 % Eosinophils Percent Auto 1.0 0.9-7.0 % Basophils Percent Auto 1.2 0.2-2.0 % Immature Granulocytes Pct Auto 0.2 0.0-0.5 % Neutrophils Absolute Auto 2.4 1.4-6.5 10 3/uL Lymphocytes Absolute Auto 2.2 1.2-3.8 10 3/uL Monocytes Absolute Auto 0.4 0.3-0.8 10 3/uL Eosinophils Absolute Auto 0.1 0.0-0.7 10 3/uL Basophils Absolute Auto 0.1 0.0-0.1 10 3/uL Immature Granulocytes Abs Auto 0.01 0.00-0.03 10 3/uL Performing Lab: see note ML - [facility] LB XR wrist SARAHY min 2v Reviewed date:06/26/2024 12:46:00 PM Interpretation: Performing Lab: Notes/Report: Source Facility: [place] [address] [place] [address] XRay Report Signed Patient: YVONNE BAKER MR#: [id number] : 1995 Acct:[id number] Age/Sex: 29 / F ADM Date: 06/25/24 Loc: [facility] Attending Dr: Tñoo Childs M.D. Ordering Physician: Toño Childs M.D. Date of Service: 06/25/24 Procedure(s): XR wrist SARAHY min 2v Accession Number(s): [id number] cc: Toño Childs M.D. The [place] [address] Patient Name: YVONNE BAKER MRN: [id number] date: 1995 Sex: F Assigned Patient Location: [facility] Current Patient Location: Accession/Order Number: [id number] Exam Date: 06/25/2024 14:40 Report Date: 06/26/2024 04:51 At the request of: TOÑO CHILDS Procedure: XR wrist SARAHY min 2v EXAMINATION: XR wrist SARAHY min 2v HISTORY: Lump of wrist R22.30 ; tender lump on wrist bilaterally. COMPARISON: No relevant comparison available. FINDINGS: RIGHT FINDINGS: BONES: No significant arthropathy or acute abnormality. Skin surface marker projects over lateral wrist/scaphoid bone. SOFT TISSUES: No visible soft tissue swelling. OTHER: Negative. LEFT FINDINGS: BONES: No significant arthropathy or acute abnormality. Skin surface marker projects over lateral wrist/scaphoid bone. SOFT TISSUES: No visible soft tissue swelling. OTHER: Negative. XR/XR wrist SARAHY min 2v IMPRESSION: RIGHT CONCLUSION: No appreciable bone or soft tissue abnormality. LEFT CONCLUSION: No appreciable bone or soft tissue abnormality. Electronically authenticated by: DANE WASHINGTON Date: 06/26/2024 04:51 Dictated By: Dane Washington M.D. Signed By: 06/26/24 0454 DD/ 045 TD/TT: Economic Analysis Director: [place] [address] XRay Report Signed Patient: HERON BAKER#: [id number] : 1995 Acct:[id number] Age/Sex: 29 / F ADM Date: 06/25/24 Loc: RAD Attending Dr: Tru Childs M.D. Ordering Physician: Toño Childs M.D. Date of Service: 06/25/24 Procedure(s): XR wri st SARAHY min 2v Accession Number(s): [id number] cc: Toño Childs M.D. [place] [address] Patient Name: YVONNE BAKER MRN: [id number] date: 1995 Sex: F Assigned Patient Location: [facility] Current Patient Location: Accession/Order Number: [id number] Exam Date: 14:40 Report Date: 06/26/2024 04:51 At the request of: TOÑO CHILDS Procedure: XR wrist SARAHY min 2v EXAMINATION: XR wris t SARAHY min 2v HISTORY: Lump of wri st R22.30 ; tender lump on wrist bilaterally. COMPARISON: No relevant comparison available. FINDINGS: RIGHT FINDINGS: BONES: No significan t arthropathy or acute abnormality. Skin surface marker projects over latera l wrist/scaphoid bone. SOFT TISSUES: No visible soft tissue swelling. OTHER: Negative. LEFT FINDINGS: BONES: No significan t arthropathy or acute abnormality. Skin surface marker projects over latera l wrist/scaphoid bone. SOFT TISSUES: No visible soft tissue swelling. OTHER: Negative. XR/XR wrist SARAHY min 2v IMPRESSION: RIGHT CONCLUSION: No appreciable bone or soft tissue abnormality. LEFT CONCLUSION: No appreciable bone or soft tissue abnormality. Electronically authenticated by: DANE WASHINGTON Date: 06/26/2024 04:51 Dictated By: Dane Washington M.D. Signed By: 06/26/244 DD/ 045 TD/TT: Economic Analysis Director: LAURA MOSS Reviewed date:11/27/2024 02:21:22 PM Interpretation: Performing Lab: Notes/Report: [facility] Quantitative 114 5-50 0.2-1 WEEK 100-5,000 2-3 WEEKS 10,000-100,000 5-6 WEEKS 50-500 1-2 WEEKS 1,000-50,000 4-5 WEEKS 10,000-100,000 2-3 MONTHS 500-10,000 3-4 WEEKS 15,000-200,000 6-8 WEEKS Performing Lab: see note - [facility] PROF 14(COMP METB) Reviewed date:08/28/2024 07:18:48 PM Interpretation: Performing Lab: Notes/Report: [facility] , Sodium 142 136-145 mmol/L Potassium 3.9 3.5-5.1 mmol/L Chloride 104 98-107 mmol/L Carbon Dioxide 31.0 21.0-32.0 mmol/L Anion Gap 10.9 Glucose 88 74-106 mg/dL Blood Urea Nitrogen 16.0 7.0-18.0 mg/dL Creatinine 0.74 0.55-1.02 mg/dL Estimated GFR ( Lucretia >60 >=60 mL/min/1.73m 2 Estimated GFR (Non- Dania >60 >=60 mL/min/1.73m 2 BUN Creatinine Ratio 21.6 Calcium 8.6 8.5-10.1 mg/dL Bilirubin Total 0.5 0.2-1.0 mg/dL Aspartate Amino Transferase 12 15-37 U/L Alanine Aminotransferase 14 14-59 U/L Alkaline Phosphatase 63 46-116 U/L Total Protein 7.1 6.4-8.2 g/dL Albumin Level 3.9 3.4-5.0 g/dL Globulin 3.2 Albumin Globulin Ratio 1.2 Performing Lab: see note ML - [facility] FREE T4 Reviewed date:08/28/2024 07:18:48 PM Interpretation: Performing Lab: Notes/Report: [facility] , Free T4 0.97 0.76-1.46 ng/dL Performing Lab: see note ML - [facility] Reason For Referral Diagnosis 1 Lump of wrist (R22.3 0) Referral Organization [facility] Referring Provider First Name Jai Referring Provider Last Name Jose Referring Provider Speciality [facility] lexi Referred Provider Dane Cordova Referred Provider Specialty Orthopedic S urgery Referral Priority Routine Medications Medication SIG (Take, Route, Fr equency, Duration) Notes Start Date End Date Status Azithromycin 250 MG 2 tabs today then 1 tab Orally daily for 5 days 11/28/2024 Active Social History Tobacco Use: Social History Observation Description Date Details (start date - stop date) Never Smoker NA - NA Tobacco Control (Standard) Question Answer Notes Tobacco use: Nonsmoker AUDIT-C (Standard) Question Answer Notes Did you have a drink contain ing alcohol in the past year? Yes How often did you have six o r more drinks on one occasion in the past year? Never (0 point) How many drinks did you have on a typical day when you were drinking in the past year? 1 or 2 drinks (0 point) How often did you have a dri nk containing alcohol in the past year? Never (0 point) Points 0 Interpretation Negative Problems Problem Type SNOMED Code ICD Code Onset Dates Problem Status W/U Status Risk Notes Problem Well adult (138975945) Well adult (Z00.00) Active confirmed Problem Ganglion cyst (M67.40) Active confirmed Vital Signs Blood pressure diastolic 82 mm Hg 05/24/2024 Height 64 in 05/24/2024 Blood pressure systolic 130 mm Hg 05/24/2024 Weight 145 lbs 05/24/2024 BMI 24.89 kg/m2 05/24/2024 Encounters Encounter Location Date Provider Diagnosis [place] [address] [place] [address] 05/24/2024 Jai Childs Lump of wrist R22.30 [facility] [address] [place] [address] 06/26/2024 Jai Childs [facility] [address] [place] [address] 08/28/2024 Jai Childs [facility] [address] [place] [address] 10/30/2024 Jai Childs Family history of thyroid disease Z83.49 [facility] [address] [place] [address] 11/16/2024 Jai Childs [facility] [address] [place] [address] 11/28/2024 Jai Childs [facility] [address] [place] [address] 05/24/2024 Jai Childs Well adult Z00.00 Assessments Encounter Date Diagnosis (ICD Code) Assessment Notes Treatment Notes Treatment Clinical Notes Section Notes 05/24/2024 Well adult (ICD-10 - Z00.00) 05/24/2024 Lump of wrist (ICD-10 - R22.30) 10/30/2024 Family history of thyroid disease (ICD-10 - Z83.49) Plan Of Treatment Pending Test Test Name Order Date CMP (COMPLETE METABOLIC PANEL) 4 HEMOGLOBIN A1C (GLYCO) 05/24/2024 LIPID PANEL (CHOL/TRIG/HDL/LDL) 05/24/20 24 CBC WITH DIFF 05/24/2024 CMP - Comprehensive Metabolic Panel 10/17 CBC AUTO DIFF 10/30/2024 XR WRIST SARAHY 2V 05/24/2024 THYROID PANEL (T4/TSH/FREE T3) 5 THYROID PANEL (T4/TSH/FREE T3) 4 NM THYROID UPTAKE AND SCAN 10/30/2024 Insurance Providers Payer Name Payer Address Payer Phone Subscriber Number Group Number Insured Name Patient Relationship to Insured Coverage Start Date Coverage End Date [facility] [address] [address] [place] [phone] [id number] Soniya Baker Spouse - patient is the spouse of the insured Medical (General) History Surgical History Surgery Date(Month/Year) Appendectomy Tonsillectomy
== END 2025-01-16 09:47 | disposition home or self-care (01) ==
LOC: LAB 08:18
PROVIDERS: PCP Family Medicine; Visit Provider Obstetrics & Gynecology
DX: Z51.81 Encounter for therapeutic drug level monitoring (principal); N92.6 Irregular menstruation, unspecified
CPT/HCPCS: 36415; 84702

== ENCOUNTER 2025-02-02 09:47 | Outpatient (OUT) | payer SELFPAY ==
--- OUTSIDE RECORDS SUMMARY | 2024-06-12 07:10 | XMS_ITS ---
Author Organization [facility] Address [address] [place] [address] Care Team Providers Care Gauger Delivery Name Role Phone Gregorio Garcia Primary Care Provider Dane Chowdhury [facility] [phone] Results Component Value Reference Range Notes SCC- WRIST 3 VIEW RIGHT 7311 0 Reviewed date:07/25/2024 12:42:11 PM Interpretation: Performing Lab: Notes/Report: SCC- WRIST 3 VIEW LEFT 74818 Reviewed date:07/25/2024 12:42:17 PM Interpretation: Performing Lab: Notes/Report: REASON FOR VISIT BILAT WRIST GANGLION CYST Encounters Encounter Location Date Provider Diagnosis [facility] [facility] [address] [place] [address] [address] [place] [address] 06/12/2024 Dane Cordova Pain in right wrist M25.531 and Pain in left wrist M25.532 Assessments Encounter Date Diagnosis (ICD Code) Assessment Notes Treatment Notes Treatment Clinical Notes Section Notes 06/12/2024 Pain in right wrist (ICD-10 - M25.531) 06/12/2024 Pain in left wrist (ICD-10 - M25.532) Plan Of Treatment No Information Progress Notes * CARINA CANALES DDOB: [birth year] (29 yo F)Acc No.[id number]:06/12/2024 Patient: Bisi CARINA DARBY Provider: Bisi Cordova MD :1995 A ge:29 Y S ex:Female Date:06/12/2024 Address:[address] [id number] Pcp:Gregorio Garcia Subjective: * Chief Complaints: * 1 . BILAT WRIST GANGLION CYST. * Medical History: Objective: * Vitals: Assessment: * Assessment: 1. P ain in right wrist - M25.531 2 . P ain in left wrist - M25.532 � Plan: * Treatment: 2. P ain in left wrist I maging: SCC- WRIST 3 VIEW LEFT 76814 (Performed Date - 07/25/2024) Forms: * Images: * Electronic signature of Yusuf Cordova MD on 02/02/2025 at 09:49 AM EDT Sign off status: Pending * Provider: Bisi Cordova MD Date: 1 08/12/2023 Generated for Kaushik almanza/Bernice/Johnitting on: 0 02/02/2025 09:49 AM EDT
--- OUTSIDE RECORDS SUMMARY | 2024-10-30 09:35 | XMS_ITS ---
Author Organization The [facility] in [place] Address [address] [place] [address] Care Team Providers Care Hide Paster Name Role Phone Jai Garcia Primary Care Provider REASON FOR VISIT fertility issues/ thyroid Encounters Encounter Location Date Provider Diagnosis [facility] [address] [facility] [address] 10/30/2024 Jai Garcia Family history of thyroid disease Z83.49 Assessments Encounter Date Diagnosis (ICD Code) Assessment Notes Treatment Notes Treatment Clinical Notes Section Notes 10/30/2024 Family history of thyroid disease (ICD-10 - Z83.49) Plan Of Treatment Pending Test Test Name Order Date CMP - Comprehensive Metabolic Panel 10/17 CBC AUTO DIFF 10/30/2024 THYROID PANEL (T4/TSH/FREE T3) 5 NM THYROID UPTAKE AND SCAN 10/30/2024 Progress Notes * Yvonne BAKER DDOB: 7 (29 yo F)Acc No.[id number]:10/30/2024 Patient: Bisi BILLYLinnYvonne :1995 A ge:29 Y S ex:Female Address:[address] [place], [address] Subjective: * Chief Complaints: * F ertility issues/ thyroid * Medical History: * Surgical History: * Hospitalization/Major Diagno stic Procedure: * Medications: Objective: * Vitals: * Physical Examination: Assessment: * Assessment: 1. F amily history of thyroid disease - Z83.49 (Primary) Plan: * Treatment: * Procedure Codes: * true * Date: Generated for Kaushik almanza/Bernice/Latosha on: 0 02/02/2025 09:49 AM EDT
--- OUTSIDE RECORDS SUMMARY | 2024-11-16 04:58 | XMS_ITS ---
Author Organization The [facility] in [place] Address [address] [place] [address] Care Team Providers Care Calibration Engineer Name Role Phone Graygill Jai Primary Care Provider [phone] REASON FOR VISIT nm thyroid uptake Encounters Encounter Location Date Provider Diagnosis [facility] [address] [facility] [address] 11/16/2024 Jai Garcia Plan Of Treatment No Information Progress Notes * Yvonne ABKER DDOB: [birth year] (29 yo F)Acc No.[id number]:11/16/2024 Patient: Bisi DARBY Yvonne Lopez :1995 A ge:29 Y S ex:Female Address:[address] [facility] [address] * true * Date: Generated for Dexi cami/Bernice/eTransmitting on: 0 02/02/2025 09:49 AM EDT
--- OUTSIDE RECORDS SUMMARY | 2024-11-28 12:10 | XMS_ITS ---
Author Organization [facility] in [place] Address [address] [place] [address] Care Team Providers Care Traffic Investigator Name Role Phone Jai Garcia Primary Care Provider REASON FOR VISIT cold symptoms Medications Medication SIG (Take, Route, Fr equency, Duration) Notes Start Date End Date Status Azithromycin 250 MG 2 tabs today then 1 tab Orally daily for 5 days 11/28/2024 Active Encounters Encounter Location Date Provider Diagnosis [place] [facility] [place] [address] 11/28/2024 Jai Garcia Plan Of Treatment Medication Medication Name Sig Start Date Stop Date Notes Azithromycin 250 MG 2 tabs today then 1 tab Orally daily for 5 days 11/28/2024 Progress Notes * Yvonne BAKER DDOB: [birth year] (29 yo F)Acc No.[id number]:11/28/2024 Patient: Bisi BILLYLinnYvonne :1995 A ge:29 Y S ex:Female Address:[address] [facility] [address] * Refills Start Azithromycin Tablet, 250 MG, Orally, 6, 2 tabs today then 1 tab, daily, 5 days, Refills=0 * true * Date: Generated for Dexi cami/Fafainag/eTransmitting on: 0 02/02/2025 09:49 AM EDT
--- OUTSIDE RECORDS SUMMARY | 2025-01-26 10:00 | XMS_ITS | Encounter Summary ---
Author Organization [facility] Address [address] [place] [address] Care Team Providers Care Video Machines Mechanic Name Role Phone Gregorio Garcia MD Primary Care Provider [phone] Encounter Details Date Type Department Care Team (Latest Contact Info) Description 01/26/2025 10:00 AM EDT Ancillary Procedure [facility] [address] [facility] [address] [place] [address] Missed menses; Baseline heart rate range 100 to 120 beats per minute ([facility]) Social History Tobacco Use Types Packs/Day Years [...] on one occasion? 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[place], [place]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 documented as of this encounter Plan of Treatment Upcoming Encounters Date Type Department Care Team (Late Contact Info) Description 02/27/2025 9:20 AM EDT Routine [facility] [address] [facility] [place] [address] Juan Voss, DO [address] [facility] [place] [address] documented as of this encounter Procedures Procedure Name Priority Date/Time Associated Diagnosis Comments US OB TRANSVAGINAL Routine 01/26/2025 10 :32 AM EDT Baseline heart rate range 100 to 120 beats per minute ([facility]) documented in this encounter Results * US OB transvaginal (01/26/2025 10:32 AM EDT) Anatomical Region Laterality Modality Body Ultrasound 01/26/2025 6:27 PM EDT Impressions 01/29/2025 8:03 AM EDT Findings consistent with a live intrauterine gestation, current sonographic age of 8 weeks and 1 days resulting in an estimated date of delivery of September 06, 2025, normal cardiac activity. TRANSCRIBED BY: ELECTRONICALLY SIGNED BY: Brent Moore MD Narrative 01/29/2025 8:03 AM EDT FINDINGS: A single intrauterine gestational sac is present. A single pole is present. Normal heart rate at 171 beats per minute (prior study January 10, 2025 demonstrate a heart rate of 100 beats per minute). Yolk sac also is seen. Current sonographic age is 8 weeks and 1 days based on the crown-rump length measurement of 1.7 cm. Based on this age, current estimated date of delivery is September 06, 2025. No pelvic fluid or adnexal mass present. Cervix closed length is 3.6 cm. Resolving subchorionic hematoma, 1.0 x 1.0 x 2.0 cm. Procedure Note Brent Moore MD - 01/29/2025 FINDINGS: A single intrauterine gestational sac is present. A single pole ispresent. Normal heart rate at 171 beats per minute (prior study 2024 demonstrate a heart rate of 100 beats per minute). Yolk sac alsois seen. Current sonographic age is 8 weeks and 1 days based on thecrown-rump length measurement of 1.7 cm. Based on this age, currentestimated date of delivery is September 06, 2025. No pelvic fluid oradnexal mass present. Cervix closed length is 3.6 cm. Resolvingsubchorionic hematoma, 1.0 x 1.0 x 2.0 cm. IMPRESSION: Findings consistent with a live intrauterine gestation, currentsonographic age of 8 weeks and 1 days resulting in an estimated date ofdelivery of September 06, 2025, normal cardiac activity. TRANSCRIBED BY: ELECTRONICALLY SIGNED BY: Brent Moore MD us Juan Bipin DO IMG OB US PROCEDURES Final Resul t documented in this encounter Visit Diagnoses Diagnosis Missed menses Baseline heart rate range 100 to 120 beats per minute ([facility]) documented in this encounter Care Teams Video Machines Mechanic Relationship Specialty Start Date End Date Gregorio Garcia MD [address] [place] [address] PCP - General Family Medicine 10/18/23 documented as of this encounter
--- OUTSIDE RECORDS SUMMARY | 2025-01-26 10:30 | XMS_ITS | Encounter Summary ---
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 female who presents for Amenorrhea Patient presents today for a Nurse OB Intake appointment. Patient is 8w0d with a Estimated Date of Delivery: 09/07/25 OB History Para Term AB Living 3 1 1 1 1 SAB IAB Ectopic Multiple Live Births 1 1 # Outcome Date GA Lbr Emile/2nd Weight Sex Type Anes PTL Lv 3 Current 2 SAB 11/25/24 Complete 1 Term 05/16/23 40w5d M Vag-Spont SUSANNAH Current Medications: has a current medication list which includes the following prescription(s): ondansetron odt and progesterone. Medical History: Active Ambulatory Problems Diagnosis Date Noted No Active Ambulatory Problems Resolved Ambulatory Problems Diagnosis Date Noted No Resolved Ambulatory Problems Past Medical History: Diagnosis Date Anxiety with depression C. difficile colitis 2013 History of medical problems Family History Problem Relation Name Age of Onset Other (Stage 2 Carcinoma) Mother Gallbladder disease Mother Thyroid disease Mother Hypertension Mother Other (Appendix Cancer) Father No Known Problems Sister 3 sisters No Known Problems Brother 2 brothers Prostate cancer Maternal Grandfather Social History Tobacco Use Smoking status: Never Smokeless tobacco: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 Substance Use Topics Alcohol use: Yes Comment: Alcohol: 6 or more drinks / less than monthly; 1 or 2 drinks on typical day. Caffeine: occasional Drug use: Never Past Surgical History: Procedure Laterality Date APPENDECTOMY 2005 COLPOSCOPY 08/2021 Negative PAP SMEAR (10/06)- Neg MAXIMILIANO; HPV pos, Neg types 16,18,45 ; (08/09)- ASCUS, HPV pos WISDOM TOOTH EXTRACTION 2014 Allergies Allergen Reactions Bee Venom Anaphylaxis Honey Bee Venom Anaphylaxis Other Reaction(s): Unknown Reaction Vitals: Estimated body mass index is 24.72 kg/m² as calculated from the following: Height as of 01/02/25: 5' 4 . Weight as of this encounter: 144 lb. BP: 110/70 No LMP recorded (lmp unknown). Patient is . Assessment/Plan Diagnoses and all orders for this visit: Amenorrhea Missed menses - Type and screen; Future - ABO/Rh; Future - CBC and differential - Hemoglobin A1c - RPR - Rubella antibody, IgG - Hepatitis B surface antigen - Hepatitis C antibody - HIV-1 and HIV-2 antibodies - Urine culture - POCT , urine manually resulted - POCT urinalysis dipstick manually resulted , unspecified gestational age ([facility]) - Type and screen; Future - ABO/Rh; Future - CBC and differential - Hemoglobin A1c - RPR - Rubella antibody, IgG - Hepatitis B surface antigen - Hepatitis C antibody - HIV-1 and HIV-2 antibodies - Rapid drug screen, urine; Future Encounter for supervision of normal first in first trimester ([facility]) - Rapid drug screen, urine; Future 8 weeks gestation of ([facility]) H/O hypotension Nurse Note: Pt desires [place] billion to one. Pt was advised to make sure she does both and unity labs together at 9 weeks. PVU, pt is currently 8 wk 0d today. Pt states she had h/o hypotension w/G1 and currently on progesterone suppositories due to a miscarriage in the past. Pt is aware to continue w/p rogesterone until 12 weeks and to call office if in need of refills. PVU OB Intake: Patient presents today for first OB visit. Patients history has been reviewed in great detail including any potential risks. Patient signed consent forms and patient desires testing in both trimesters. Patient currently has no complaints and has been advised to drink 6-8 glasses of water a day, eatno raw or undercooked meat, and stay away from [facility]. Patient has also been advised to not change litter boxes and eat 6 small meals a day. Patient has been consulted regarding the do's and don'ts ofpregnancy. Patient was given labs and all questions and concerns were answered. Follow Up: Patient is to return in 4 weeks for routine OB appointment. Follow Up: Patient is to have labs drawn at directed and return to office for initial OB appointment with provider. Patient may call office as needed with any concerns or questions. Nurse Visit Completed by: Raysa Sheikh MA documented in this encounter Plan of Treatment Upcoming Encounters Date Type Department Care Team (Late st Contact Info) Description 02/27/2025 9:20 AM EDT Routine [facility] BCP OB [address] [facility] [place] [address] Juan Voss, DO [address] [place] [address] [place] [address] Scheduled Orders Name Type Priority Associated Diagnoses Orde r Schedule Type and screen Lab Routine Missed menses , unspecified gestational age ([facility]) Expected: 01/26/2025 (Approximate), Expires: 01/26/2026 ABO/Rh Lab Routine Missed menses , unspecified gestational age ([facility]) Expected: 01/26/2025 (Approximate), Expires: 01/26/2026 CBC and differential Lab Routine Missed menses , unspecified gestational age ([facility]) Ordered: 01/26/2025 Hemoglobin A1c Lab Routine Missed menses , unspecified gestational age ([facility]) Ordered: 01/26/2025 RPR Lab Routine Missed menses , unspecified gestational age ([facility]) Ordered: 01/26/2025 Rubella antibody, IgG Lab Routine Missed menses , unspecified gestational age ([facility]) Ordered: 01/26/2025 Hepatitis B surface antigen Lab Routine Missed menses , unspecified gestational age ([facility]) Ordered: 01/26/2025 Hepatitis C antibody Lab Routine Missed menses , unspecified gestational age ([facility]) Ordered: 01/26/2025 HIV-1 and HIV-2 antibodies Lab Routine Missed menses , unspecified gestational age ([facility]) Ordered: 01/26/2025 Urine culture Microbiology Routine Missed menses Ordered: 01/26/2025 Rapid drug screen, urine Lab Routine , unspecified gestational age ([facility]) Encounter for supervision of normal first in first trimester ([facility]) Expected: 01/26/2025 (Approximate), Expires: 01/26/2026 documented as of this encounter Procedures Procedure Name Priority Date/Time Associated Diagnosis Comments POCT , URINE Routine 01/26/2025 11:31 AM EDT Missed menses POCT URINALYSIS DIPSTICK Routine 01/26/2025 11:31 AM EDT Missed menses documented in this encounter Results * POCT urinalysis dipstick manually resulted (01/26/2025 11:31 AM EDT) Color, UA Yellow Clarity, UA Clear Glucose, UA Negative Negative - 2000(110) ++++ mg/dL Bilirubin, UA Negative Negative - 4(70) +++ mg/dL Ketones, UA Negative Negative - 160(16) ++++ mg/dL Spec Grav, UA 1.020 1 - 1.03 Blood, UA Negative Negative - 50 Ronal/mcL pH, UA 7.0 5 - 9 Protein, UA Negative Negative - 2000(20) ++++ mg/dL Urobilinogen, UA 0.2 0.2 - 12 mg/dL Leukocytes, UA Trace Negative - 500+++ Gilbert/mcL Nitrite, UA Negative Negative - Positive Urine 01/26/2025 11:3 1 AM EDT [employer] Bipin DO POINT OF CARE TEST ENTER/EDIT OR DERABLES Final Result * (ABNORMAL) POCT , urine manually resulted (01/26/2025 11:31 AM EDT) Preg Test, Ur Positive Negative Urine 01/26/2025 11:3 1 AM EDT Juan Bipin DO POINT OF CARE TEST ENTER/EDIT OR DERABLES Final Result documented in this encounter Visit Diagnoses Diagnosis Amenorrhea Absence of menstruation Missed menses , unspecified gestational age ([facility]) Encounter for supervision of normal first in first trimester ([facility]) 8 weeks gestation of ([facility]) H/O hypotension documented in this encounter Care Teams Rating Specialist Relationship Specialty Start Date End Date Gregorio Garcia MD [address] [place] [address] PCP - General Family Medicine 10/18/23 documented as of this encounter
--- OUTSIDE RECORDS SUMMARY | 2025-02-02 09:49 | XMS_ITS | Encounter Summary ---
Author Organization [facility] Address [address] [place] [address] Care Team Providers Care Professional Engineer Name Role Phone Gregorio Garcia MD Primary Care Provider [phone] Reason for Visit * Reason Onset Date Comments Med Refill 01/30/2025 Encounter Details Date Type Department Care Team (Late st Contact Info) Description 01/30/2025 Refill [facility] [address] [facility] [address] Shayna Munguia LPN [address] [place] [id number] History of miscarriage Social History Tobacco Use Types Packs/Day Years [...] 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 Detailed voicemail left. documented in this encounter Plan of Treatment Upcoming Encounters Date Type Department Care Team (Late st Contact Info) Description 02/27/2025 9:20 AM EDT Routine [facility] BCP OB [address] [facility] [place] [address] Juan Voss, [address] [facility] [address] [place], [place] [id number] documented as of this encounter Visit Diagnoses Diagnosis History of miscarriage Personal history of other genital system and obstetric disorders documented in this encounter Care Teams Professional Engineer Relationship Specialty Start Date End Date Gregorio Garcia MD [address] [facility] [place] [address] PCP - General Family Medicine 10/18/23 documented as of this encounter
--- OUTSIDE RECORDS SUMMARY | 2025-02-02 09:49 | XMS_ITS | Encounter Summary ---
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 documented as of this encounter Plan of Treatment Upcoming Encounters Date Type Department Care Team (Late st Contact Info) Description 02/27/2025 9:20 AM EDT Routine [facility] BCP OB [address] [place] [phone] Dejan Voss DO [address] [place], [place] [phone] (work) documented as of this encounter Procedures Procedure Name Priority Date/Time Associated Diagnosis Comments US OB GROWTH 04/11/2023 2:03 AM EDT documented in this encounter Results * US OB GROWTH (04/11/2023 2:03 AM EDT) Anatomical Region Laterality Modality Other 04/11/2023 2:03 AM EDT Narrative 04/11/2023 2:03 [place] [address] Ultrasound Report Signed Patient: CARINA BAKER MR#: [id number] : 1995 Acct:[id number] Age/Sex: 28 / F ADM Date: 04/10/23 Loc: US Attending Dr: Dejan Voss D.O. Ordering Physician: Dejan Voss D.O. Date of Service: 04/10/23 Procedure(s): US OB growth Accession Number(s): [id number] cc: Dejan Voss D.O.; Physician,Non-Staff Gabe The [address] [address] Patient Name: CARINA BAKER MRN: [id number] date: 1995 Sex: F Assigned Patient Location: US Current Patient Location: Accession/Order Number: [id number] Exam Date: 04/10/2023 14:15 Report Date: 04/11/2023 [...] M.D. Signed By: 04/11/23204 DD/ 2 TD/TT: Motorcycle Repairer: Procedure Note Radiology, Radiologist, MD - 04/11/2023 [place] [address] Ultrasound Report Signed Patient: CARINA BAKER DMR#: [id number] : 1995Acct:[id number] Age/Sex: 28 / FADM Date: 04/10/23 Loc: US Attending Dr: Dejan Voss D.O. Ordering Physician: Dejan Voss D.O. Date of Service: 04/10/23 Procedure(s): US OB growth Accession Number(s): [id number] cc: Dejan Voss D.O.; Physician,Non-Staff Gabe The [place] [id number] Patient Name: CARINA BAKER MRN: [id number] date: 1995 Sex: F Assigned Patient Location: US Current Patient Location: Accession/Order Number: [id number] Exam Date: 04/10/2023 14:15 Report Date: 04/11/2023 [...] [place] M.D. Signed By:04/11/23204 DD/ 2 TD/TT: Motorcycle Repairer: us Dejan Bipin DO [facility] Final Result documented in this encounter Visit Diagnoses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documented in this encounter Care Teams Cashier Clerk Relationship Specialty Start Date End Date Juan Cerna DO [address] [facility] [address] [place] [address] PCP - General Family Medicine 02/02/23 10/17/23 Gregorio Garcia MD [address] [place] [address] PCP - General Family Medicine 10/18/23 documented as of this encounter
--- OUTSIDE RECORDS SUMMARY | 2025-02-02 09:49 | XMS_ITS | Encounter Summary ---
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 [address] Juan Voss DO [address] [facility] [place] [place] [address] documented as of this encounter Visit Diagnoses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documented in this encounter Care Teams Changer Fixer Relationship Specialty Start Date End Date Gregorio Garcia MD [address] [place] [address] PCP - General Family Medicine 10/18/23 documented as of this encounter
--- OUTSIDE RECORDS SUMMARY | 2025-02-02 09:49 | XMS_ITS | Encounter Summary ---
Author Organization [facility] Address [address] [place] [address] Care Team Providers Care Manager Of Applications Development Name Role Phone Gregorio Garcia MD Primary Care Provider [phone] Encounter Details Date Type Department Care Team (Late st Contact Info) Description 12/06/2024 Abstract [facility] BCP OB [address] [facility] [place] [address] Juan Voss, DO [address] 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 [place] [address] documented as of this encounter Visit Diagnoses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documented in this encounter Care Teams Manager Of Applications Development Relationship Specialty Start Date End Date Gregorio Garcia MD [address] [facility] [address] PCP - General Family Medicine 10/18/23 documented as of this encounter
--- OUTSIDE RECORDS SUMMARY | 2025-02-02 09:49 | XMS_ITS | Encounter Summary ---
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 [place] [address] PCP - General Family Medicine 10/18/23 documented as of this encounter
--- OUTSIDE RECORDS SUMMARY | 2025-02-02 09:49 | XMS_ITS | Encounter Summary ---
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 documented as of this encounter Plan of Treatment Upcoming Encounters Date Type Department Care Team (Late st Contact Info) Description 02/27/2025 9:20 AM EDT Routine [facility] BCP OB [address] [place] [address] Dejan Voss, DO [address] [place], [place] [phone] documented as of this encounter Procedures Procedure Name Priority Date/Time Associated Diagnosis Comments US OB BPP W NON-STRESS 05/03/2023 4:35 PM EDT documented in this encounter Results * US OB BPP W NON-STRESS (05/03/2023 4:35 PM EDT) Anatomical Region Laterality Modality Other 05/03/2023 4:35 PM EDT Narrative 05/03/2023 4:35 [place] [address] Ultrasound Report Signed Patient: YVONNE BAKER MR#: [id number] : 1995 Acct:[id number] Age/Sex: 28 / F ADM Date: 05/03/23 Loc: FBFL Attending Dr: Dejan Voss D.O. Ordering Physician: Dejan Voss D.O. Date of Service: 05/03/23 Procedure(s): US OB BPP w non-stress Accession Number(s): [id number] cc: CLARENCE LIVINGSTON ; Dejan Voss D.O. The [place] [id number] Patient Name: YVONNE BAKER MRN: [id number] date: 1995 Sex: F Assigned Patient Location: [facility] Current Patient Location: Accession/Order Number: [id number] Exam Date: 05/03/2023 11:30 Report Date: 05/03/2023 [...] Dictated By: Srinivasan Wahl M.D. Signed By: 05/03/231637 DD/ 34 TD/TT: Last Marker: Procedure Note Radiology, Radiologist, - 05/03/2023 [place] [address] Ultrasound Report Signed Patient: YVONNE BAKER DMR#: [id number] : 1995Acct:[id number] Age/Sex: 28 / FADM Date: 05/03/23 Loc: FBCO Attending Dr: Dejan Voss D.O. Ordering Physician: Dejan Voss D.O. Date of Service: 05/03/23 Procedure(s): US OB BPP w non-stress Accession Number(s): [id number] cc: CLARENCE LIVINGSTON ; Dejan Voss D.O. The [place] [id number] Patient Name: YVONNE BAKER MRN: [id number] date: 1995 Sex: F Assigned Patient Location: [facility] Current Patient Location: Accession/Order Number: [id number] Exam Date: 05/03/2023 11:30 Report Date: 05/03/2023 [...] 16:35 Dictated By: Srinivasan Wahl M.D. Signed By:05/03/231637 DD/ 34 TD/TT: Last Marker: us Generic External Data Provider [facility] Final Result documented in this encounter Visit Diagnoses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documented in this encounter Care Teams Nurse Wound Relationship Specialty Start Date End Date Juan Cerna DO [address] [facility] [address] [place] [address] PCP - General Family Medicine 02/02/23 10/17/23 Gregorio Garcia MD [address] [place] [address] PCP - General Family Medicine 10/18/23 documented as of this encounter
--- OUTSIDE RECORDS SUMMARY | 2025-02-02 09:49 | XMS_ITS | Encounter Summary ---
Author Organization [facility] Address [address] [place] [address] Care Team Providers Care Mortgage Clerk Name Role Phone Juan Cerna DO Primary Care Provider [phone] Gregorio Garcia MD Primary Care Provider [phone] Encounter Details Date Type Department Care Team (Late st Contact Info) Description 01/13/2023 Abstract [facility] BCP OB [address] [facility] [place] [address] [address] Voss [address] [place], [place] [address] Social History Tobacco Use Types Packs/Day Years [...] AM EDT Routine NOMS BCP OB [address] [place] [address] Juan Voss DO [facility] [place], [place] [address] documented as of this encounter Visit Diagnoses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documented in this encounter Care Teams Mortgage Clerk Relationship Specialty Start Date End Date Juan Cerna DO [address] [address] PCP - General Family Medicine 02/02/23 10/17/23 Gregorio Garcia MD [address] [facility] [place] [address] PCP - General Family Medicine 10/18/23 documented as of this encounter
--- OUTSIDE RECORDS SUMMARY | 2025-02-02 09:49 | XMS_ITS | Encounter Summary ---
Author Organization [facility] Address [address] [place] [address] Care Team Providers Care Rural Electrification Engineer Name Role Phone Nehemiah Juan Pascual CHILDS Primary Care Provider [phone] Gregorio Garcia MD Primary Care Provider [phone] Encounter Details Date Type Department Care Team (Late Contact Info) Description 05/12/2023 Abstract [facility] [address] [facility] [address] [place] [address] Randa Renteria MD [address] [place] [address] Social History Tobacco Use Types Packs/Day Years [...] 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[place], [place]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 documented as of this encounter Plan of Treatment Upcoming Encounters Date Type Department Care Team (Late Contact Info) Description 02/27/2025 9:20 AM EDT Routine [facility] BCP OB [address] [facility] [place] [address] Juan Voss DO [address] [place] [address] documented as of this encounter Visit Diagnoses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documented in this encounter Care Teams Rural Electrification Engineer Relationship Specialty Start Date End Date Juan Cerna DO [address] [facility] [address] [place] [address] PCP - General Family Medicine 02/02/23 10/17/23 Gregorio Garcia MD [address] [facility] [place] [address] PCP - General Family Medicine 10/18/23 documented as of this encounter
--- OUTSIDE RECORDS SUMMARY | 2025-02-02 09:49 | XMS_ITS | Encounter Summary ---
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[place], [place]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 [...] EDT Routine [facility] [address] [place] [phone] Juan Voss DO [address] [facility] [address] [facility] [place] [address] documented as of this encounter Visit Diagnoses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documented in this encounter Care Teams Supervisor Paper Coating Relationship Specialty Start Date End Date Juan Cerna DO [address] [email or web address] [address] [place] [address] PCP - General Family Medicine 02/02/23 10/17/23 Gregorio Garcia MD [address] [facility] [place] [address] PCP - General Family Medicine 10/18/23 documented as of this encounter
--- OUTSIDE RECORDS SUMMARY | 2025-02-02 09:49 | XMS_ITS | Encounter Summary ---
Author Organization [facility] Address [address] [place] [address] Care Team Providers Care Emery Grinder Name Role Phone Juan Cerna DO Primary Care Provider [phone] Gregorio Garcia MD Primary Care Provider [phone] Encounter Details Date Type Department Care Team (Late st Contact Info) Description 05/17/2023 Abstract [facility] [address] [facility] [address] [place] [phone] Juan Cerna, DO [address] [place] [address] Social History Tobacco Use Types Packs/Day Years [...] 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[place], [place]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 [place] [address] PCP - General Family Medicine 10/18/23 documented as of this encounter
--- OUTSIDE RECORDS SUMMARY | 2025-02-02 09:49 | XMS_ITS | Encounter Summary ---
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[place], [place]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 documented as of this encounter Plan of Treatment Upcoming Encounters Date Type Department Care Team (Late Contact Info) Description 02/27/2025 9:20 AM EDT Routine [facility] BCP OB [address] [facility] [place] [address] Juan Voss DO [address] [place] [address] documented as of this encounter Visit Diagnoses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documented in this encounter Care Teams Fresh Foods Cake Decorator Relationship Specialty Start Date End Date Juan Cerna DO [address] [facility] [address] [place] [address] PCP - General Family Medicine 02/02/23 10/17/23 Gregorio Garcia MD [address] [facility] [place] [address] PCP - General Family Medicine 10/18/23 documented as of this encounter
--- OUTSIDE RECORDS SUMMARY | 2025-02-02 09:49 | XMS_ITS | Patient Health Record ---
Author Organization [facility] Address [address] [place] [address] Care Team Providers Care Thermometer Tester Name Role Phone Gregorio Garcia Primary Care Provider Dane Chowdhury [facility] [phone] Allergies Allergen (clinical drug ingredient) Drug/Non Drug Allergy documented on EMR Reaction Allergy Type Onset Date Status bee sting (uncoded) anaphylaxis Allergy Active Results Component Value Reference Range Notes SCC- WRIST 3 VIEW LEFT 52634 Reviewed date:07/25/2024 03:44:15 PM Interpretation: Performing Lab: [...] 06/26/2024 Encounters Encounter Location Date Provider Diagnosis [facility] [address] [place] [address] [place] [address] 06/26/2024 Dane Cordova Pain in right wrist [...] Insured Coverage Start Date Coverage End Date [facility] [address] [address] [place] [address] [phone] [id number] ROBERTO CANALES Spouse - patient is the spouse of the insured Medical (General) History Medical History History ICD Code Anxiety
--- OUTSIDE RECORDS SUMMARY | 2025-02-02 09:50 | XMS_ITS | Patient Health Record ---
Author Organization [facility] [place] Address [address] [address] Care Team Providers Care Country Manager Name Role Phone Jai Childs Primary Care Provider Allergies No Known Allergies Results Component Value Reference Range Notes CBC AUTO DIFF Reviewed date:08/28/2024 07:18:48 PM Interpretation: Performing Lab: Notes/Report: [facility] , White Blood Count 5.1 4.0-11.0 10 [...] Performing Lab: see note ML - [facility] FREE T3 Reviewed date:08/28/2024 07:18:48 PM Interpretation: Performing Lab: Notes/Report: [facility] Free T3 2.75 2.18-3.98 pg/mL Performing Lab: see note ML - [facility] FREE T4 Reviewed date:08/28/2024 07:18:48 PM Interpretation: Performing Lab: Notes/Report: [facility] Free T4 0.97 0.76-1.46 ng/dL Performing Lab: see note ML - [facility] GLYCOHEMOGLOBIN A1C Reviewed date:08/28/2024 07:18:48 PM Interpretation: Performing Lab: Notes/Report: [facility] , Glycohemoglobin A1C 5.5 4.5-6.2 % ADA THERAPEUTIC TARGET < 7.0 > 7.0 ACTION SUGGESTED ADA RECOMMENDED LIMIT 4.0 - 6.0 Estimated Average Glucose 111 Performing Lab: see note ML - [facility] LB LIPID PROFILE Reviewed date:08/28/2024 07:18:48 PM Interpretation: Performing Lab: Notes/Report: [facility] , Triglycerides 40 <=150 mg/dL Cholesterol [...] RISK Performing Lab: see note ML - [facility] LB PREG QUANT HCG Reviewed date:08/28/2024 07:18:48 PM Interpretation: Performing Lab: Notes/Report: [facility] , HCG Quantitative <1 15,000-200,000 6-8 WEEKS 500-10,000 3-4 WEEKS 10,000-100,000 2-3 MONTHS 1,000-50,000 4-5 WEEKS 50-500 1-2 WEEKS 100-5,000 2-3 WEEKS 5-50 0.2-1 WEEK 10,000-100,000 5-6 WEEKS Performing Lab: see note ML - [facility] LB T4 Reviewed date:08/28/2024 07:18:48 PM Interpretation: Performing Lab: Notes/Report: [facility] , T4 Thyroxine 8.40 4.80-13.90 ug/dL Performing Lab: see note ML - [facility] LB TSH Reviewed date:08/28/2024 07:18:48 PM Interpretation: Performing Lab: Notes/Report: [facility] , Thyroid Stimulating Hormone 1.097 0.358-3.740 uIU/mL Performing Lab: see note ML - [facility] LB Progesterone Reviewed date:08/29/2024 12:51:42 PM Interpretation: Performing Lab: Notes/Report: [facility] , Progesterone 15.2 . ng/mL Postmenopausal 0.0 - 0.1 Follicular phase 0.1 - 0.9 First trimester 11.0 - 44.3 Luteal phase 1.8 - 23.9 Tank Builder And Erector: Kip Giles PhD, Phone: [phone] Third trimester 58.7 - 214.0 Second trimester 25.4 - 83.3 Ovulation phase 0.1 - 12.[address] [place] [phone] Performed at: [facility] Performing Lab: see note [facility] LB Luteinizing Hormone(LH) Reviewed date:08/29/2024 12:51:42 PM Interpretation: Performing Lab: Notes/Report: [facility] , Luteinizing Hormone(LH) 8.0 . mIU/mL Adult Female Range Luteal phase 1.0 - 11.4 Ovulation phase 14.0 - 95.6 Follicular phase 2.4 - 12.6 Postmenopausal 7.7 - 58.5 Performing Lab: see note [facility] LB FSH Reviewed date:08/29/2024 12:51:42 PM Interpretation: Performing Lab: Notes/Report: [facility] , FSH 3.9 . mIU/mL Adult Female Range Postmenopausal 25.8 - 134.8 Ovulation phase 4.7 - 21.5 Luteal phase 1.7 - 7.7 Follicular phase 3.5 - 12.5 Performing Lab: see note LC - [facility] LB DHEA-Sulfate Reviewed date:08/29/2024 12:51:42 PM Interpretation: Performing Lab: Notes/Report: [facility] , DHEA-Sulfate 144.0 84.8-378.0 ug/dL Performing Lab: see note LC - [facility] LB US OB transvaginal Reviewed date:11/22/2024 08:00:41 PM Interpretation: Performing Lab: Notes/Report: Source Facility: [place] [address] Ultrasound Report Signed Patient: YVONNE BAKER MR#: [id number] : 1995 Acct:[id number] Age/Sex: 29 / F ADM Date: 11/22/24 Loc: US Attending Dr: Dejan Voss D.O. Ordering Physician: Dejan Voss D.O. Date of Service: 11/22/24 Procedure(s): US OB transvaginal Accession Number(s): [id number] cc: Dejan Voss D.O.; Toño Childs M.D. [place] [address] Patient Name: YVONNE BAKER MRN: [id number] date: 1995 Sex: F Assigned Patient Location: Current Patient Location: US Accession/Order Number: [id number] Exam Date: 11/22/2024 16:44 Report Date: 11/22/2024 [...] Jr., D.O. 11/22/2024 4:47 PM Dictation Location: [place] [address] Electronically authenticated by: [id number] Y Date: 11/22/2024 16:47 Dictated By: Brent Jonas M.D. Signed By: 11/22/241649 DD/ 46 TD/TT: Aquatics Specialist: [place] [address] Ultrasound Report Signed Patient: HERON BAKER MR#: [id number] : 1995 Acct:[id number] Age/Sex: 29 / F ADM Date: 11/22/24 Loc: US Attending Dr: Dejan Voss D.O. Ordering Physician: Dejan Voss D.O. Date of Service: 11/22/24 Procedure(s): US OB transvaginal Accession Number(s): [id number] cc: Dejan Voss D.O. ; Toño Childs M.D. [address] [address] Patient Name: YVONNE BAKER MRN: [facility]:[id number] date: 1995 Sex: F Assigned Patient Location: Current Patient Location: US Accession/Order Number: [id number] Exam Date: 11/22/2024 16:44 Report Date: 11/22/2024 [...] Jr., D.O. 11/22/2024 4:47 PM Dictation Location: [place] [address] Electronically authenticated by: [id number] Y Date: 11/22/2024 16:47 Dictated By: Brent Jonas M.D. Signed By: 11/22/241649 DD/ 46 TD/TT: Aquatics Specialist: PREG QUANT HCG Reviewed date:11/26/2024 06:23:41 PM Interpretation: Performing Lab: Notes/Report: [facility] , HCG Quantitative 275 500-10,000 3-4 WEEKS 50-500 1-2 WEEKS 1,000-50,000 4-5 WEEKS 5-50 0.2-1 WEEK 10,000-100,000 2-3 MONTHS 100-5,000 2-3 WEEKS 15,000-200,000 6-8 WEEKS 10,000-100,000 5-6 WEEKS Performing Lab: see note ML - [facility] PROF CHEM 8 (NICOLE METB) Reviewed date:11/26/2024 06:23:41 PM Interpretation: Performing Lab: Notes/Report: [facility] , Sodium 138 136-145 mmol/L Potassium [...] Performing Lab: see note ML - [facility] PREG QUANT HCG Reviewed date:01/08/2025 08:16:44 PM Interpretation: Performing Lab: Notes/Report: [facility] , HCG Quantitative 12652 50-500 1-2 WEEKS 500-10,000 3-4 WEEKS 1,000-50,000 4-5 WEEKS 5-50 0.2-1 WEEK 10,000-100,000 5-6 WEEKS 15,000-200,000 6-8 WEEKS 10,000-100,000 2-3 MONTHS 100-5,000 2-3 WEEKS Performing Lab: see note ML - [facility] PREG QUANT HCG Reviewed date:11/22/2024 08:00:41 PM Interpretation: Performing Lab: Notes/Report: [facility] , HCG Quantitative 264 100-5,000 2-3 WEEKS 1,000-50,000 4-5 WEEKS 10,000-100,000 5-6 WEEKS 50-500 1-2 WEEKS 5-50 0.2-1 WEEK 15,000-200,000 6-8 WEEKS 10,000-100,000 2-3 MONTHS 500-10,000 3-4 WEEKS Performing Lab: see note ML - [facility] LB DHEA, Serum Reviewed date:09/02/2024 02:22:25 PM Interpretation: Performing Lab: Notes/Report: [facility] DHEA, Serum 179 31-701 ng/dL This test was developed and its performance characteristics approved by the Food and Drug Administration. determined by [facility]. It has not been cleared or Performed at: [facility] Tank Builder And Erector: Betina Lindsey MD, Phone: [phone] [address] [place], [place] [id number] Performing Lab: see note - [facility] LB PROF 14(COMP METB) Reviewed date:08/28/2024 07:18:48 PM Interpretation: Performing Lab: Notes/Report: [facility] , Sodium 142 136-145 mmol/L Potassium [...] 1.2 Performing Lab: see note ML - [facility] LB CBC AUTO DIFF Reviewed date:11/26/2024 06:23:41 PM Interpretation: Performing Lab: Notes/Report: [facility] , White Blood Count 8.2 4.0-11.0 [...] Performing Lab: see note ML - [facility] PREG QUANT HCG Reviewed date:01/06/2025 01:42:13 PM Interpretation: Performing Lab: Notes/Report: [facility] Quantitative [address] 10,000-100,000 5-6 WEEKS 5-50 0.2-1 WEEK 500-10,000 3-4 WEEKS 50-500 1-2 WEEKS 15,000-200,000 6-8 WEEKS 100-5,000 2-3 WEEKS 1,000-50,000 4-5 WEEKS 10,000-100,000 2-3 MONTHS Performing Lab: see note ML - [facility] PREG QUANT HCG Reviewed date:11/27/2024 02:21:22 PM Interpretation: Performing Lab: Notes/Report: [facility] Quantitative 114 5-50 0.2-1 WEEK 100-5,000 2-3 WEEKS 10,000-100,000 5-6 WEEKS 50-500 1-2 WEEKS 1,000-50,000 4-5 WEEKS 10,000-100,000 2-3 MONTHS 500-10,000 3-4 WEEKS 15,000-200,000 6-8 WEEKS Performing Lab: see note ML - [facility] LB PREG QUANT HCG Reviewed date:11/24/2024 01:09:48 PM Interpretation: Performing Lab: Notes/Report: [facility] , HCG Quantitative 292 500-10,000 3-4 WEEKS 15,000-200,000 6-8 WEEKS 50-500 1-2 WEEKS 1,000-50,000 4-5 WEEKS 5-50 0.2-1 WEEK 100-5,000 2-3 WEEKS 10,000-100,000 5-6 WEEKS 10,000-100,000 2-3 MONTHS Performing Lab: see note ML - [facility] LB XR wrist SARAHY min 2v Reviewed date:06/26/2024 12:46:00 PM Interpretation: Performing Lab: Notes/Report: Source Facility: [place] [address] XRay Report Signed Patient: YVONNE BAKER MR#: [id number] : 1995 Acct:[id number] Age/Sex: 29 / F ADM Date: 06/25/24 Loc: RAD Attending Dr: Toño Childs M.D. Ordering Physician: Toño Childs M.D. Date of Service: 06/25/24 Procedure(s): XR wrist SARAHY min 2v Accession Number(s): [id number] cc: Toño Childs M.D. [place] [address] Patient Name: YVONNE BAKER MRN: [id number] date: 1995 Sex: F Assigned Patient Location: [facility] Current Patient Location: Accession/Order Number: [id number] Exam Date: 06/25/2024 14:40 Report Date: 06/26/2024 [...] Dictated By: Dane [place] M.D. Signed By: 06/26/24453 DD/ 0 TD/TT: Aquatics Specialist: [place] [address] XRay Report Signed Patient: HERON BAKER MR#: [id number] : 1995 Acct:[id number] Age/Sex: 29 / F ADM Date: 06/25/24 Loc: RAD Attending Dr: Tru Childs M.D. Ordering Physician: Toño Childs M.D. Date of Service: 06/25/24 Procedure(s): XR wri st SARAHY min 2v Accession Number(s): [id number] cc: Toño Childs M.D. [place] [address] Patient Name: YVONNE BAKER MRN: [id number] date: 1995 Sex: F Assigned Patient Location: RAD Current Patient Location: Accession/Order Number: [id number] Exam Date: 14:40 Report Date: 06/26/2024 04:51 [...] Dictated By: Dane [place] M.D. Signed By: 06/26/24453 DD/ 0 TD/TT: Aquatics Specialist: Reason For Referral Diagnosis 1 Lump of wrist (R22.3 0) Referral Organization [facility] Medicine Referring Provider First Name Jai Referring Provider Last Name Jose Referring Provider Speciality [facility] Referred Provider Dane Cordova Referred Provider Specialty [...] W/U Status Risk Notes Problem Well adult (360872468) Well adult (Z00.00) Active confirmed Problem Ganglion cyst (22623213) Ganglion cyst (M67.40) Active confirmed Vital Signs Blood pressure diastolic 82 mm Hg 05/24/2024 Height 64 in 05/24/2024 Blood pressure systolic 130 mm Hg 05/24/2024 Weight 145 lbs 05/24/2024 BMI 24.89 kg/m2 05/24/2024 Encounters Encounter Location Date Provider Diagnosis [facility] [address] [place] [address] 05/24/2024 Jai Childs Lump of wrist R22.30 [facility] [address] [place] [address] 06/26/2024 Jai Childs [facility] [address] [facility] [place] [address] 08/28/2024 Jai gill [facility] [address] [place] [address] 10/30/2024 Jai Childs Family history of thyroid disease Z83.49 [facility] [address] [place] [address] 11/16/2024 Jai Childs [facility] [address] [place] [address] 11/28/2024 Jai Childs [facility] [address] [facility] [place] [address] 05/24/2024 Jai Childs Well adult Z00.00 Assessments [...] SARAHY 2V 05/24/2024 THYROID PANEL (T4/TSH/FREE T3) THYROID PANEL (T4/TSH/FREE T3) 4 NM THYROID UPTAKE AND SCAN 10/30/2024 Insurance Providers Payer Name Payer Address Payer Phone Subscriber Number Group Number Insured Name Patient Relationship to Insured Coverage Start Date Coverage End Date [facility] [address] [address] [place] [address] [id number] Soniya Baker Spouse - patient is the spouse of the insured Medical (General) History Surgical History Surgery Date(Month/Year) Appendectomy Tonsillectomy
--- OUTSIDE RECORDS SUMMARY | 2025-02-02 10:02 | XMS_ITS | CCD ---
Author Organization [facility] CliniSynj Care Team Providers Care Weight Caller Name Role Phone NONE, XXXX Unavailable Unavailable [...] [Bee Stings] Propensity to adverse reactions (disorder) [facility]) bee venom protein (honey bee) Drug allergy (disorder) 4 [facility] Repository (13 sources) Honey bee venom Propensity to adverse reactions 3 Anaphylaxis [facility] (5 sources) Honey bee venom Drug Allergy Anaphylaxis [facility] Medications Current Medications Medication Drug Class(es) Dates Sig (Normalized) Sig (Original) Singac (No Known Home Meds) (1 source) Start: 10-17-2023 Singac (No Known Home Meds) Active October 17, 2023 12:00am ondansetron 4 mg disintegrating oral tablet (13 sources) Serotonin-3 Receptor Antagonist Start: 10-17-2022 End: 02-07-2025 take 1 tablet by mouth every six hours ondansetron ODT (Zofran-ODT) 4 MG disintegrating tablet Indications: Nausea and vomiting in ([facility]) Take 1 tablet (4 mg) by mouth every 6 (six) hours 120 tablet 01/08/2025 02/07/2025 Active penicillin v potassium 500 mg oral tablet (1 source) Start: 10-17-2023 take 500 mg by mouth twice daily Penicillin V Potassium Active 500 MG PO Twice daily October 17, 2023 12:00am Progesterone 200 MG suppository (3 sources) Start: 01-04-2025 End: 02-03-2025 Progesterone 200 MG suppository Indications: History of miscarriage Insert 200 mg into the vagina at bedtime Insert suppository vaginally every night at bedtime until 12 weeks gestation 30 suppository 01/04/2025 02/03/2025 Active Problems Problem Classification Problem Date Documented Date [...] OTH VIRL COMMUNICABL DZ] Onset: 02-26-2020 Episodic Menstrual disorders (2 sources) Amenorrhea; Translations: [Amenorrhea, unspecified] 01-26-2025 Chronic Other circulatory disease (1 source) History of hypotension; Translations: [Personal history of other diseases of the circulatory system] 01-26-2025 Episodic Other endocrine disorders (2 sources) Polycystic ovary syndrome; Translations: [Polycystic ovarian syndrome] 08-22-2024 Chronic Other endocrine disorders (2 sources) Disorder of endocrine system; Translations: [Endocrine disorder, unspecified] 08-22-2024 Episodic Other and delivery including normal (2 sources) ; Translations: [Encounter for supervision of normal , unspecified, unspecified trimester] 01-26-2025 Episodic Other upper respiratory infections (2 sources) Streptococcal sore throat; Translations: [Streptococcal pharyngitis] Onset: 10-17-2023 10-17-2023 Episodic Residual codes; unclassified (1 source) Pain, unspecified; Translations: [Pain, unspecified] Onset: 10-17-2023 Episodic Residual codes; unclassified (1 source) Gestation period, 8 weeks; Translations: [8 weeks gestation of ] 01-26-2025 Episodic Spontaneous (2 sources) Miscarriage; Translations: [Complete or unspecified spontaneous without complication] 01-02-2025 Episodic Results Test Name Value Interpretation Reference Range Facility HCG ( test) Ql (U)o n 01-26-2025 Interpretation and review of laboratory results Abnormal [facility] Preg Test, Ur Positive Negative [facility] OB TRANSVAGINALon 025 US OB TRANSVAGINAL FINDINGS: A single intrauterine gestational sac is [...] BY: ELECTRONICALLY SIGNED BY: Brent Moore MD Normal Not Available Comment on above: Order Comment: US OB TRANSVAGINAL No LMP recorded (lmp unknown). Urinalysis macro (dipstick) panel (U)on 01-26-2025 Bilirubin, UA Negative Negative - 4(70) +++ mg/dL [facility] Blood, UA Negative Negative - 50 Ronal/mcL [facility] Clarity, UA Clear [facility] Color, UA Yellow [facility] Glucose, UA Negative Negative - 2000(110) ++++ mg/dL [facility] Interpretation and review of laboratory results Normal [facility] Ketones, UA Negative Negative - 160(16) ++++ mg/dL [facility] Leukocytes, UA Trace Negative - 500+++ Gilbert/mcL [facility] Nitrite, UA Negative Negative - Positive [facility] pH, UA 7 5 - 9 [facility] Protein, UA Negative Negative - 1999(20) ++++ mg/dL [facility] Spec Grav, UA 1.02 1 - 1.03 [facility] Urobilinogen, UA 0.2 0.2 - 12 mg/dL [facility] US OB TRANSVAGINALon 025 US OB TRANSVAGINAL EXAM: US OB TRANSVAG INAL HISTORY: Missed menstrual cycle, unknown LMP. COMPARISON: None available. TECHNIQUE: Two-dimensional transvaginal grayscale ultrasound imaging of the pelvis was performed. Color Doppler evaluation of the ovaries was also performed. FINDINGS: The uterus demonstrates a normal homogeneous echotexture. The cervix measures 4.2 cm in length and the cervical os is closed. The right ovary measures 2.8 x 2.0 x 2.5 cm and demonstrates a normal echotexture. There is normal color Doppler flow. There is a 2.3 cm avascular, heterogeneous lesion visualized. The left ovary measures 1.8 x 1.1 x 1.7 cm and demonstrates a normal echotexture. There is normal color Doppler flow. No fluid is present within the cul-de-sac. There is a single, live intrauterine gestation identified with a heart rate of 100 beats per minute and a crown-rump length measurement of 0.2 cm, correlating to a gestational age of 5 weeks 5 days (+/- 4 days). There is no subchorionic hemorrhage visualized. A yolk sac is visualized. IMPRESSION: 1. Single, live intrauterine gestation with today's ultrasound measurements correlating to a gestational age of 5 weeks 5 days (+/- 4 days). QUIQUE by today's ultrasound is 09/07/2025. 2. Avascular, heterogeneous right ovarian lesion. This lesion may represent a complex cyst or dermoid cyst. A follow-up ultrasound in 4 weeks is recommended to monitor for resolution/stability. 3. Normal color Doppler evaluation of the bilateral ovaries. Interpreted by: Electronically signed by ROSEMARIE GARNER II, MD, PHD at 11-Jan-2025 09:47:30 AM [facility] Normal Not Available TB PREG QUANT HCGon 025 HCG QUANTITATIVE 62420 mIU/mL [facility] Comment on above: 5-50 0.2-1 WEEK 50-500 1-2 WEEKS 100-5,000 2-3 WEEKS 500-10,000 3-4 WEEKS 1,000-50,000 4-5 WEEKS 10,000-100,000 5-6 WEEKS 15,000-200,000 6-8 WEEKS 10,000-100,000 2-[facility] 025 HCG QUANTITATIVE 14886 mIU/mL [facility] Comment on above: 5-50 0.2-1 WEEK 50-500 1-2 WEEKS 100-5,000 2-3 WEEKS 500-10,000 3-4 WEEKS 1,000-50,000 4-5 WEEKS 10,000-100,000 5-6 WEEKS 15,000-200,000 6-8 WEEKS 10,000-100,000 2-[facility] macro (dipstick) panel (U)on 01-02-2025 Bilirubin, UA Negative Negative - 4(70) +++ mg/dL [facility] Blood, UA Negative Negative - 50 Ronal/mcL [facility] Clarity, UA Clear [facility] Color, UA Yellow [facility] Glucose, UA Negative Negative - 1999(110) ++++ mg/dL [facility] Interpretation and review of laboratory results Normal [facility] Ketones, UA Negative Negative - 160(16) ++++ mg/dL [facility] Leukocytes, UA Negative Negative - 500+++ Gilbert/mcL [facility] Nitrite, UA Negative Negative - Positive [facility] pH, UA 6 5 - 9 [facility] Protein, UA Negative Negative - 1999(20) ++++ mg/dL [facility] Spec Grav, UA 1.025 1 - 1.03 [facility] Urobilinogen, UA 0.2 0.2 - 12 mg/dL [facility] PREG QUANT HCGon 025 HCG QUANTITATIVE 114 mIU/mL [facility] Comment on above: 5-50 0.2-1 WEEK 50-500 1-2 WEEKS 100-5,000 2-3 WEEKS 500-10,000 3-4 WEEKS 1,000-50,000 4-5 WEEKS 10,000-100,000 5-6 WEEKS 15,000-200,000 6-8 WEEKS 10,000-100,000 2-3 MONTHS [facility] PREG QUANT HCGon 025 HCG QUANTITATIVE 292 mIU/mL [facility] Comment on above: 5-50 0.2-1 WEEK 50-500 1-2 WEEKS 100-5,000 2-3 WEEKS 500-10,000 3-4 WEEKS 1,000-50,000 4-5 WEEKS 10,000-100,000 5-6 WEEKS 15,000-200,000 6-8 WEEKS 10,000-100,000 2-[facility] 025 [place] [address] Ultrasound Report Signed Patient: YVONNE BAKER MR#: [id number] : 1995 Acct:[id number] Age/Sex: 29 / F ADM Date: 11/22/24 Loc: Attending Dr: Dejan Voss D.O. Ordering Physician: Dejan Voss D.O. Date of Service: 11/22/24 Procedure(s): US OB transvaginal Accession Number(s): [id number] cc: Dejan Voss D.O.; Gregorio Garcia M.D. [address] [address] Patient Name: YVONNE BAKER MRN: [id number] date: 1995 Sex: F Assigned Patient Location: Current Patient Location: US Accession/Order Number: [id number] Exam Date: 11/22/2024 16:44 Report Date: 11/22/2024 [...] Jr., D.O. 11/22/2024 4:47 PM Dictation Location: [place] [address] Electronically authenticated by: [id number] Y Date: 11/22/2024 16:47 Dictated By: Brent Jonas M.D. Signed By: 11/22/24 1650 DD/ 1647 TD/TT: Desktop Specialist: [facility] Radiology, Radiologi MD kristian - 11/22/2024 [place] [address] Ultrasound Report Signed Patient: YVONNE BAKER MR#: [id number] : 1995 Acct:[id number] Age/Sex: 29 / F ADM Date: 11/22/24 Loc: US Attending Dr: Dejan Voss D.O. Ordering Physician: Dejan Voss D.O. Date of Service: 11/22/24 Procedure(s): US OB transvaginal Accession Number(s): [id number] cc: Dejan Voss D.O.; Gregorio Garcia M.D. [address] [address] Patient Name: YVONNE BAKER MRN: [id number] date: 1995 Sex: F Assigned Patient Location: US Current Patient Location: US Accession/Order Number: [id number] Exam Date: 11/22/2024 16:44 Report Date: 11/22/2024 [...] Jr., D.O. 11/22/2024 4:47 PM Dictation Location: [place] [address] Electronically authenticated by: [id number] Y Date: 11/22/2024 16:47 Dictated By: Brent Jonas M.D. Signed By: 11/22/24 1650 DD/ 1647 TD/TT: Desktop Specialist: [facility] Radiology Study observation (narrative) [facility] US OB TRANSVAGINALOrdered By : Radiologist Radiology on 11-22-2024 [facility] Work Phone: [facility] PREG QUANT HCGon 08-28- 025 HCG QUANTITATIVE <1 mIU/mL [facility] Comment on above: 5-50 0.2-1 WEEK 50-500 1-2 WEEKS 100-5,000 2-3 WEEKS 500-10,000 3-4 WEEKS 1,000-50,000 4-5 WEEKS 10,000-100,000 5-6 WEEKS 15,000-200,000 6-8 WEEKS 10,000-100,000 2-3 MONTHS [facility] COVID-19 / Flu A/B / RSV PCR [...] Negative COVID19 Blank Space Cepheid Disclaimer The [employer] Xpert Xpress CoV-2/Flu/RSV Plus has [employer] Disclaimer not been FDA cleared or approved; [...] or Cepheid Disclaimer revoked sooner. PERFORMED BY: [place] [address] PATHOLOGIST HAIR ROOTING MACHINE OPERATOR ELADIO POWELL M.D. Normal [facility] Comment on above: Performed By: #### C EPHEID NEG, COVID19 FLU RSV, QS #### [address] Cepheid COVID PCR Negativeon 10-17-2023 SARS-CoV-2 (COVID-19) RNA MOR+probe Ql (Unsp spec) Negative Normal Negative [facility] Comment on above: Result Comment: This is a duplicate Cepheid Xpert Xpress CoV-2/Flu/RSV Plus RNA by RT-PCR result to be used for statistical tracking purpose only. PERFORMED BY: [place] [address] PATHOLOGIST HAIR ROOTING MACHINE OPERATOR ELADIO POWELL M.D. Performed By: #### C EPHEID NEG, COVID19 FLU RSV, QS #### [place] [id number] [facility] Quick Strepon 10-17-2023 S. pyogenes Ag IA Ql (Unsp spec) Streptococcus pyogenes Ag [Presence] in Throat by Rapid immunoassay Positive for Group A Strep Antigen Reference range = Negative PERFORMED BY: [place] [address] PATHOLOGIST HAIR ROOTING MACHINE OPERATOR ELADIO POWELL M.D. Normal [facility] Comment on above: Performed By: #### C EPHEID NEG, COVID19 FLU RSV, QS #### [facility] [address] Streptococcus pyogenes antig en detectionOrdered By: Juan Swartz on 10-17-2023 S. pyogenes Ag Ql (Unsp spec) [facility] Basophils Auto (Bld) [#/Vol] Ordered By: Juan Cerna on 05-06-2022 Basophils (Bld) [#/Vol] 0.0 10*3/uL 0.0-0.2 [facility] Basophils/100 WBC Auto (Bld) Ordered By: Juan Cerna on 05-06-2022 Basophils/100 WBC (Bld) 0.6 % . [facility] Body fluid albumin measureme nt (mass/volume)Ordered By: Juan Cerna on 05-06-2022 Albumin (Body fld) [Mass/Vol] 4.4 g/dL 3.2-5.5 [facility] Cholesterol [Mass/volume] in Serum or PlasmaOrdered By: Juan Cerna on 05-06-2022 Cholesterol [Mass/Vol] 191 mg/dL 140-200 [facility] Comment on above: Chol less than 200 m g/dl low riskChol 201-239 mg/dl borderline riskChol 240 mg/dl and greater high risk Cholesterol in LDL Calc [Mas s/Vol]Ordered By: Juan Cerna on 05-06-2022 Cholesterol in LDL [Mass/Vol] 103 mg/dL 0-100 [facility] Comment on above: LDL ATP III CLASSIFI CATIONLDL less than 100 mg/dL OptimalLDL 100-129 mg/dL Near or above optimalLDL 130-159 mg/dL Borderline highLDL 160-189 mg/dL HighLDL greater than 189 mg/dL Very high Cholesterol in VLDL Calc [Ma ss/Vol]Ordered By: Juan Cerna on 05-06-2022 Cholesterol in VLDL [Mass/Vol] 7 mg/dL [facility] Creatinine and Glomerular fi ltration rate.predicted panel (S/P/Bld)Ordered By: Juan Cerna on 05-06-2022 Creatinine [Mass/Vol] 0.63 mg/dL 0.44-1.03 [facility] Eosinophils Auto (Bld) [#/Vo l]Ordered By: Juan Cerna on 05-06-2022 Eosinophils (Bld) [#/Vol] 0.1 10*3/uL 0.0-0.45 [facility] Eosinophils/100 WBC Auto (Bl d)Ordered By: Juan Cerna on 05-06-2022 Eosinophils/100 WBC (Bld) 0.7 % . [facility] Erythrocyte distribution wid th Auto (RBC) [Ratio]Ordered By: Juan Cerna on 05-06-2022 Erythrocyte distribution width (RBC) [Ratio] 13.3 % 11.9-15.3 [facility] Estimated glomerular filtrat ion rate (GFR) non- AmericanOrdered By: Juan Cerna on 05-06-2022 GFR/1.73 sq M.predicted among non-blacks MDRD (S/P/Bld) [Vol rate/Area] > 60 mL/Min [facility] Globulin Calc (S) [Mass/Vol] Ordered By: Juan Cerna on 05-06-2022 Globulin (S) [Mass/Vol] 2.6 g/dL [facility] Hematocrit Auto (Bld) [Volum e fraction]Ordered By: Juan Cerna on 05-06-2022 Hematocrit (Bld) [Volume fraction] 42.9 % 34.0-46.4 [facility] Hemoglobin [Mass/volume] in BloodOrdered By: Juan Cerna on 05-06-2022 Hemoglobin (Bld) [Mass/Vol] 13.8 g/dL 11.8-15.4 [facility] Laboratory - Hematology and Cell countsOrdered By: Juan Cerna on 05-06-2022 Nucleated RBC/100 WBC (Bld) [Ratio] 0.1 % 0-0.5 [facility] Leukocytes [#/volume] in Blo od by Automated countOrdered By: Juan Cerna on 05-06-2022 WBC (Bld) [#/Vol] 7.6 10*3/uL 4.5-11.0 [facility] Lymphocytes Auto (Bld) [#/Vo l]Ordered By: Jaun Cerna on 05-06-2022 Lymphocytes (Bld) [#/Vol] 2.6 10*3/uL 1.00-4.8 [facility] Lymphocytes/100 WBC Auto (Bl d)Ordered By: Juan Cerna on 05-06-2022 Lymphocytes/100 WBC (Bld) 34.7 % . [facility] MCH Auto (RBC) [Entitic mass ]Ordered By: Juan Cerna on 05-06-2022 MCH (RBC) [Entitic mass] 29.7 pg 24.7-34.3 [facility] MCHC Auto (RBC) [Mass/Vol]Or dered By: Juan Cerna on 05-06-2022 MCHC (RBC) [Mass/Vol] 32.2 g/dL 32.0-35.0 [facility] MCV Auto (RBC) [Entitic vol] Ordered By: Juan Cerna on 05-06-2022 MCV (RBC) [Entitic vol] 92.3 fL 80-100 [facility] Monocytes Auto (Bld) [#/Vol] Ordered By: Juan Cerna on 05-06-2022 Monocytes (Bld) [#/Vol] 0.5 10*3/uL 0.0-0.8 [facility] Monocytes/100 WBC Auto (Bld) Ordered By: Juan Cerna on 05-06-2022 Monocytes/100 WBC (Bld) 6.1 % . [facility] Neutrophils Auto (Bld) [#/Vo l]Ordered By: Juan Cerna on 05-06-2022 Neutrophils (Bld) [#/Vol] 4.4 10*3/uL 1.8-7.7 [facility] Neutrophils/100 WBC Auto (Bl d)Ordered By: Juan Cerna on 05-06-2022 Neutrophils/100 WBC (Bld) 57.9 % . [facility] No Panel InformationOrdered By: Juan Cerna on 05-06-2022 Estimated GFR () > 60 mL/Min [facility] Comment on above: GFR estimated refere nce range: According to KDOQI guidelines, <60 ml/min/1.73m2 is sufficient to diagnose a patient with chronic kidney disease. Pharmacy Creatinine Clearance (Chem N/A [facility] Platelet mean volume Auto (B ld) [Entitic vol]Ordered By: Juan Cerna on 05-06-2022 Platelet mean volume (Bld) [Entitic vol] 9.9 fL 6.3-10.7 [facility] Platelets Auto (Bld) [#/Vol] Ordered By: Juan Cerna on 05-06-2022 Platelets (Bld) [#/Vol] 253 10*3/uL 150-450 [facility] Protein [Mass/volume] in Ser um or PlasmaOrdered By: Jaun Cerna on 05-06-2022 Protein [Mass/Vol] 7.0 g/dL 6.1-7.9 [facility] RBC Auto (Bld) [#/Vol]Ordere d By: Juan Cerna on 05-06-2022 RBC (Bld) [#/Vol] 4.65 10*6/uL 3.60-5.00 [facility] Serum or plasma alanine cochran otransferase measurement without P-5'-P (enzymatic activiOrdered By: Juan Cerna on 05-06-2022 ALT No additional P-5'-P [Catalytic activity/Vol] 14 U/L [facility] Serum or plasma albumin/glob ulin mass ratioOrdered By: Juan Cerna on 05-06-2022 Albumin/Globulin [Mass ratio] 1.7 {ratio} [facility] Serum or plasma alkaline jeremy sphatase measurement (enzymatic activity/volume)Ordered By: Juan Cerna on 05-06-2022 ALP [Catalytic activity/Vol] 42 U/L 32-92 [facility] Serum or plasma anion gap de terminationOrdered By: Juan Cerna on 05-06-2022 Anion gap [Moles/Vol] 13.3 mmol/L 6.0-15.0 [facility] Serum or plasma aspartate am inotransferase measurement (enzymatic activity/volume)Ordered By: Juan Cerna on 05-06-2022 AST [Catalytic activity/Vol] 17 U/L [facility] Serum or plasma calcium crystal urement (mass/volume)Ordered By: Juan Cerna on 05-06-2022 Calcium [Mass/Vol] 9.9 mg/dL 8.2-10.2 [facility] Serum or plasma chloride jenna surement (moles/volume)Ordered By: Juan Cerna on 05-06-2022 Chloride [Moles/Vol] 100 mmol/L 95-114 [facility] Serum or plasma glucose crystal urement (mass/volume)Ordered By: Juan Cerna on 05-06-2022 Glucose [Mass/Vol] 81 mg/dL 70-100 [facility] Comment on above: ADA recommended refe rence rangeRandom Glucose Reference Range is dependent on time and content of last meal. Glucose of more than 200 mg/dL in a nonstressed, ambulatory subject supports the diagnosis of Diabetes Mellitus. Serum or plasma high density lipoprotein (HDL) cholesterol measurementOrdered By: Juan Cerna on 05-06-2022 Cholesterol in HDL [Mass/Vol] 80 mg/dL 35-85 [facility] Comment on above: HDL CHOL ATP-III CLA SSIFICATION Cardiovascular RiskHDL > or equal to 60 mg/dL LOWHDL < 40 mg/dL HIGH Serum or plasma potassium me asurement (moles/volume)Ordered By: Juan Cerna on 05-06-2022 Potassium [Moles/Vol] 3.6 mmol/L 3.5-5.1 [facility] Serum or plasma sodium measu rement (moles/volume)Ordered By: Juan Cerna on 05-06-2022 Sodium [Moles/Vol] 136 mmol/L 136-146 [facility] Serum or plasma total biliru bin measurement (mass/volume)Ordered By: Juan Cerna on 05-06-2022 Bilirubin [Mass/Vol] 0.9 mg/dL 0.3-1.2 [facility] Serum or plasma total carbon dioxide measurement (moles/volume)Ordered By: Juan Cerna on 05-06-2022 CO2 [Moles/Vol] 26.3 mmol/L 22.0-30.0 [facility] Serum or plasma total choles terol/high density lipoprotein (HDL) cholesterol mass ratOrdered By: Juan Cerna on 05-06-2022 Cholesterol.total/Cho lesterol in HDL [Mass ratio] 2.4 {ratio} <5.0 [facility] Serum or plasma urea nitroge n measurement (mass/volume)Ordered By: Juan Cerna on 05-06-2022 Urea nitrogen [Mass/Vol] 14 mg/dL 9-23 [facility] Triglyceride [Mass/volume] i n Serum or PlasmaOrdered By: Juan Cerna on 05-06-2022 Triglyceride [Mass/Vol] 39 mg/dL 35-149 [facility] Comment on above: TRIG ATP III CLASSIF ICATIONTRIG less than 150 mg/dL NormalTRIG 150-199 mg/dL Borderline highTRIG 200-500 mg/dL High TRIG greater than 500 mg/dL Very highStandard traceable to the Center for Disease Conrtrol and Prevention (CDC) test method. COVID-19 PCRon 02-27-2020 SARS-CoV-2, MOR Not Detected Normal Not Detected [facility] Comment on above: Result Comment: This test was developed and its performance characteristics determined by [facility]. This test has not been FDA cleared [...] By: #### C VDPCR #### [facility] [address] [place] [address] Edie De La Paz Coding Summary.on 09-12-2017 Coding Summary. CODING DATE: 018 FINAL [facility] DSC STATUS: Home (Routine DC) PAYOR: [...] Revised Date Saved: 09/12/2017 10:53 am Normal [facility] Acetamnphn Lvlon 09-10-2017 Acetaminophen mass conc 14 microgram/mL Low 15-30 [facility] Comment on above: Performed By: #### 2 [id number] ####[facility] [id number] [place] [address] Auto Diffon 09-10-2017 Basophils Auto #/vol (Bld) 0.8 % Normal 0.0-2.0 [facility] Comment on above: Order Comment: Order Added by Discern Expert. Performed By: #### 2 [id number], [id number] ####[address] [address] Basophils/Leukocytes Auto Pure number fraction (Bld) 0.1 E9/L Normal 0.0-0.2 [facility] Comment on above: Order Comment: Order Added by Discern Expert. Performed By: #### 2 [id number], [id number] ####[place] [address] [place] [address] Eosinophils/100 WBC Auto (Bld) 0.2 % Normal 0.0-8.0 [facility] Comment on above: Order Comment: Order Added by Discern Expert. Performed By: #### 2 [id number], [id number] ####[address] [address] Eosinophils/Leukocyte s Auto Pure number fraction (Bld) 0.0 E9/L Normal 0.0-0.5 [facility] Comment on above: Order Comment: Order Added by Discern Expert. Performed By: #### 2 [id number], [id number] ####[address] [address] Lymphocytes/100 WBC Auto (Bld) 29.7 % Normal 14.0-50.0 [facility] Comment on above: Order Comment: Order Added by Discern Expert. Performed By: #### 2 [id number], [id number], [id number] ####[address] [address] Lymphocytes/Leukocyte s Auto Pure number fraction (Bld) 2.0 E9/L Normal 1.0-4.0 [facility] Comment on above: Order Comment: Order Added by Discern Expert. Performed By: #### 2 [id number], [id number], [id number] ####[address] [address] Monocytes/100 WBC Auto (Bld) 4.7 % Normal 4.0-14.0 [facility] Comment on above: Order Comment: Order Added by Discern Expert. Performed By: #### 2 [id number], [id number], [id number] ####[address] [address] Monocytes/Leukocytes Auto Pure number fraction (Bld) 0.3 E9/L Normal 0.2-1.0 [facility] Comment on above: Order Comment: Order Added by Discern Expert. Performed By: #### 2 [id number], [id number], [id number] ####[address] [address] Neutrophils/100 WBC Auto (Bld) 64.6 % Normal 36.0-75.0 [facility] Comment on above: Order Comment: Order Added by Discern Expert. Performed By: #### 2 [id number], [id number], [id number] ####[facility] [id number] [place] [address] Neutrophils/Leukocyte s Auto Pure number fraction (Bld) 4.4 E9/L Normal 2.0-7.5 [facility] Comment on above: Order Comment: Order Added by Discern Expert. Performed By: #### 2 [id number], [id number] ####[place] [address] [place] [address] B hCG Qualon 09-10-2017 Beta hCG Ql Negative Normal [facility] Comment on above: Performed By: #### 2 [id number], [id number], [id number] ####[facility] [address] [place] [address] BMPon 09-10-2017 Anion gap 3 molar conc 14 mmol/L Normal 6-16 [facility] Comment on above: Performed By: #### 2 [id number], [id number], [id number] ####[address] [address] Calcium mass conc 9.3 mg/dL Normal 8.9-11.1 [facility] Comment on above: Performed By: #### 2 [id number], 39658055, 7304011 ####[facility] [address] [place] [address] Chloride molar conc 100 mmol/L Low 101-111 [facility] Comment on above: Performed By: #### 2 7475924, 54957590, 8344212 ####[facility] [address] [place] [address] CO2 molar conc 23 mmol/L Normal 21-31 [facility] Comment on above: Performed By: #### 2 5862544, 57979419, 0810174 ####[facility] [address] [place] [address] Creatinine mass conc 0.8 mg/dL Normal 0.5-1.3 [facility] Comment on above: Performed By: #### 2 0036369, 14146907, 6307827 ####[facility] [address] [place] [address] Glucose mass conc 105 mg/dL Normal 55-199 [facility] Comment on above: Result Comment: If t his glucose result represents a fasting glucose, interpretation should refer to the following reference range: 55-99 mg/dL Performed By: #### 2 [id number], 79966655, 8671343 ####[place] [address] [place] [address] Potassium molar conc 2.9 mmol/L Low 3.5-5.3 [facility] Comment on above: Performed By: #### 2 6441840, 08175618, 8037184 ####[facility] [address] [place], [place] [address] Sodium molar conc 134 mmol/L Low 135-145 [facility] Comment on above: Performed By: #### 2 2952979, 35576110, 2257929 ####[place] [address] Urea nitrogen mass conc 11 mg/dL Normal 5-21 [facility] Comment on above: Performed By: #### 2 3401911, 92339090, 1458322 ####[place] [address] Urea nitrogen/Creatinine mass ratio 14 No Units Normal 10-20 [facility] Comment on above: Performed By: #### 2 6362925, 55969404, 1395291 ####[facility] [address] [place], [place] [address] CBC w/ Auto Diffon 8 Erythrocyte distribution width Auto Ratio (RBC) 13.7 % Normal 10.9-14.2 [facility] Comment on above: Performed By: #### 2 8389119, 30420495, 5062842 ####[address] [address] Hematocrit Auto Volume Fraction (Bld) 41.6 % Normal 34.0-46.0 [facility] Comment on above: Performed By: #### 2 3169023, 07725608, 8032179 ####[facility] [address] [place] [address] Hemoglobin mass conc (Bld) 14.4 g/dL Normal 12.0-16.0 [facility] Comment on above: Performed By: #### 2 7392441, 28242687, 2328757 ####[place] [address] MCH Auto Entitic mass (RBC) 30.9 pg Normal 27.0-34.0 [facility] Comment on above: Performed By: #### 2 2359801, 61422598, 4551024 ####[place] [address] MCHC Auto mass conc (RBC) 34.5 g/dL Normal 31.4-39.3 [facility] Comment on above: Performed By: #### 2 5183388, 02263505, 8036390 ####[place] [address] MCV Auto Entitic volume (RBC) 89.5 fL Normal 80.0-100.0 [facility] Comment on above: Performed By: #### 2 6157805, 43563455, 4981094 ####[place] [address] Platelet mean volume Auto Entitic volume (Bld) 9.6 fL Normal 6.4-10.8 [facility] Comment on above: Performed By: #### 2 4612335, 86546891, 2993674 ####[place] [address] Platelets Auto #/vol (Bld) 291.0 E9/L Normal 150.0-500. 0 [facility] Comment on above: Performed By: #### 2 6177686, 33592857, 1869638 ####[place] [address] RBC Auto #/vol (Bld) 4.6 E12/L Normal 4.3-5.9 [facility] Comment on above: Performed By: #### 2 8149841, 90866018, 1757877 ####[facility] [address] [place] [address] WBC corrected for nucl RBC Auto #/vol (Bld) 6.8 E9/L Normal 4.0-11.0 [facility] Comment on above: Performed By: #### 2 8465042, 91435175, 0474632 ####[facility] [address] [place] [address] ED Clinical Summaryon 2017 ED Clinical Summary (Inserted Image. Mireya ble to display) [place] [id number] ED Clinical SummaryPerson Information Name: YVONNE GOODEN/Ivone Age: 22 Years : 1995 12:00 AM Sex: Female Language:Kinyarwanda PCP: NONE, XXXX Marital Status:Single Visit Id: [...] PM 09/10/2017 3:46 PM 09/10/2017 3:46 PM ADDRESS:[address] [place] [address] [address] [facility] [address] PHYS DOC NOTES: Patient: YVONNE GOODEN Age: [...] Medical/ Family/ Social History Medical history: ResolvedDepression ([id number]): Resolved.. Surgical history: No active procedure history items have been selected or recorded.. Family history: No family history items have been selected or recorded.. Social history: Social & Psychosocial EvpsqqYhbfjtj06/26/2017 Risk Assessment: Denies Alcohol Use09/10/2017 Use: Current [...] Auto 64.6 % Lymph Auto 29.7 % Dent Auto 4.7 % Eos Auto 0.2 % Basophil Auto 0.8 % Neutro Absolute 4.4 E9/L Lymph Absolute 2.0 E9/L Dent Absolute 0.3 E9/L Eos Absolute 0.0 E9/L [...] Impression and Plan Diagnosis General medical (PNED [id number], Reason For Visit, Emergency medicine, Medical) Complaint of Intentional drug overdose (PNED [id number], Reason For Visit, Emergency medicine, Medical) Intentional drug overdose (IDP00-LH T50.902A, Discharge, Emergency medicine, Medical) Suicidal ideation (LMQ71-SQ R45.851, Discharge, Emergency medicine, Medical) Plan Condition: Improved, Stable. Disposition: Discharged: to home. Patient was given the following educational materials: Nontoxic Ingestion, Poisoning Information, Adult, Suicidal Feelings: How to Help Yourself, Suicidal Feelings: How to Help Yourself, Poisoning Information, Adult, Nontoxic Ingestion. Follow up with: ; [facility] In 3 days 09/13/2017. Counseled: Patient, Regarding [...] Adult; Nontoxic Ingestion Follow up:With: Address: When: [facility] In 3 days 09/13/2017 DIAGNOSIS:Intentional drug overdose; Suicidal ideation Normal [facility] ED Note-Nursingon 09-10-2017 ED Note-Nursing pt [...] notified pt denied needs getting dressed Normal [facility] ED Note-Physicianon 09-10-19 ED Note-Physician Patient: [...] Medical/ Family/ Social History Medical history: ResolvedDepression ([id number]): Resolved.. Surgical history: No active procedure history items have been selected or recorded.. Family history: No family history items have been selected or recorded.. Social history: Social & Psychosocial KextluMvzpiup35/26/2017 Risk Assessment: Denies Alcohol Use09/10/2017 Use: Current [...] Auto 64.6 % Lymph Auto 29.7 % Dent Auto 4.7 % Eos Auto 0.2 % Basophil Auto 0.8 % Neutro Absolute 4.4 E9/L Lymph Absolute 2.0 E9/L Dent Absolute 0.3 E9/L Eos Absolute 0.0 E9/L [...] Impression and Plan Diagnosis General medical (PNED [id number], Reason For Visit, Emergency medicine, Medical) Complaint of Intentional drug overdose (PNED [id number], Reason For Visit, Emergency medicine, Medical) Intentional drug overdose (PFQ14-MA T50.902A, Discharge, Emergency medicine, Medical) Suicidal ideation (TDT61-RD R45.851, Discharge, Emergency medicine, Medical) Plan Condition: Improved, Stable. Disposition: Discharged: to home. Patient was given the following educational materials: Nontoxic Ingestion, Poisoning Information, Adult, Suicidal Feelings: How to Help Yourself, Suicidal Feelings: How to Help Yourself, Poisoning Information, Adult, Nontoxic Ingestion. Follow up with: ; [facility] In 3 days 09/13/2017. Counseled: Patient, Regarding diagnosis, Regarding diagnostic results, Regarding treatment plan, Regarding prescription, Patient indicated understanding of instructions. Notes: Return to the ER if condition changes or worsens or if you have any other concerns. Otherwise see your family doctor for follow up.. [facility] Comment on above: Result Comment: [...] day. It is best if it is oams-iy-kmxi. Remember, they will want to help you.? [...] your local emergency services (911 in the [place]).? Call a suicide hotline:? 2-815-026-TALK ( ) in the [place].? 5-915-GVTECED ( ) in the [place].? in the [place] for Central African-speaking counselors.? 3-386-596-4TTY ( ) in the [place] for TTY users.? Visit the following websites for information and help:? National Suicide Prevention Lifeline: www.suicidepreventionlifelin e.org? Hopeline: www.hopeline.com? [place] Foundation for Suicide Prevention: www.afsp.org? For lesbian, hollis, bisexual, transgender, or questioning youth, contact The [place] Project:? 6-011-4-U-ELOY ( ) in the [place].? www.thetrevorproject.org? In [place], treatment resources are listed in each province with listings available under [employer] or similar titles. Another source for Crisis Centres by Province is located at http://www.suicideprevention .ca/dy-kldkqp-sng/find-a-cri xma-qheeqt-stj/crisis-centre sDocument Released: 01/09/2004 Document Revised: 09/26/2012 Document Reviewed: 10/30/2014ExitCare? Patient Information ?2015 [employer]. This information is not intended to replace [...] 09/26/2012 Document Reviewed: 08/05/2009ExitCare? Patient Information ?2015 [employer]. This information is not intended to replace [...] poisoning are: ? Medicines, including prescription medicines, jfmz-qqe-frbqopm pain medicines, vitamins, iron pills, and herbal supplements.? Cleaning or laundry products.? [place] and paint thinner.? Castle or insect killers.? Perfume, hair spray, or nail products.? Alcohol.? Plants, such as philodendron, poinsettia, oleander, castor baker, cactus, and tomato plants.? Batteries.? Furniture nepali.? Drain clothes shaker.? Antifreeze or other automotive products.? Gasoline, coil inspector fluid, or lamp oil.? Carbon monoxide gas from furnaces or automobiles.? Toxic fumes from the burning of plastics or certain other materials.WHAT ARE SOME FIRST-AID MEASURES FOR POISONING?The local poison control center must be contacted whenever a person may have been exposed to poison. The poison forward air controller/air officer will often give a set of directions [...] to identify the medicine to the poison forward air controller/air officer.?? Get away from the area where exposure [...] Keep all dangerous household products (such as coil inspector fluid, paint thinner and remover, gasoline, and antifreeze) in locked cabinets. ? Do not mix different household chemicals with each other.? Use protective equipment (gloves, goggles, masks, aprons) as needed when using chemicals or clothes shaker.? Install a carbon monoxide detector in your [...] to find the number.The local emergency services (393 in [place] must be contacted if a [...] 11/19/2014 Document Reviewed: 06/21/2013ExitCare? Patient Information ?2014 [employer]. This information is not intended to replace advice given to you by your health care provider. Make sure you discuss any questions you have with your health care provider. Normal [facility] ED Patient Summaryon 018 ED Patient Summary (Inserted Image. Mireya ble to display) [address] [address] Patient Discharge Instructions Person Information Name: YVONNE GOODEN Age: 22 Years Date: 09/10/2017 11:11 AMDischarge Diagnosis: Intentional drug overdose; Suicidal ideation Primary Care Physician: NONE, XXXX Provider InformationPrimary Provider: Johanna Hogan DO Policy Director:Jared The exam and treatment you received in the Emergency Department were for an urgent problem and are not intended as complete care. It is important that you follow up with a doctor, nurse practitioner, or physician?s asset protection assistant for ongoing care. If your symptoms become worse or you do not improve as expected and you are unable to reach your usual health care provider, you should return to the Emergency Department. We are available 24 hours a day. YVONNE GOODEN has been given the following list of patient education materials, prescriptions and follow-up instructions: Follow-up Instructions:With: Address: When: [facility] In 3 days 09/13/2017 In the event [...] Comment: Pharmacy Information: Thank you for choosing [facility] Patient Education Materials: Suicidal Feelings, How to [...] day. It is best if it is tiiz-wu-clty. Remember, they will want to help you.? [...] your local emergency services (911 in the [place]).? Call a suicide hotline:? 7-005-851-TALK ( ) in the [place].? 9-313-WAGRTMO ( ) in the [place].? in the [place] for Central African-speaking counselors.? 2-205-630-4TTY ( ) in the [place] for TTY users.? Visit the following websites for information and help:? National Suicide Prevention Lifeline: www.suicidepreventionlifelin PointsHoundorg? Hopeline: www.Futuris.tk.com? [place] Foundation for Suicide Prevention: www.afsp.org? For lesbian, hollis, bisexual, transgender, or questioning youth, contact The [place] Project:? 0-660-4-U-ELOY ( ) in the [facility].? www.thetrevorproject.org? In [place], treatment resources are listed in each province with listings available under [employer] or similar titles. Another source for Crisis Centres by Province is located at http://www.suicideprevention .ca/um-peaynu-uey/find-a-cri jqq-bmemrg-par/crisis-centre sDocument Released: 01/09/2004 Document Revised: 09/26/2012 Document Reviewed: 10/30/2014ExitCare? Patient Information ?2015 pic5, [facility]. This information is not intended to replace [...] poisoning are: ? Medicines, including prescription medicines, cmyo-icr-sbjhsfy pain medicines, vitamins, iron pills, and herbal supplements.? Cleaning or laundry products.? [place] and paint thinner.? Castle or insect killers.? Perfume, hair spray, or nail products.? Alcohol.? Plants, such as philodendron, poinsettia, oleander, castor baker, cactus, and tomato plants.? Batteries.? Furniture nepali.? Drain clothes shaker.? Antifreeze or other automotive products.? Gasoline, coil inspector fluid, or lamp oil.? Carbon monoxide gas from furnaces or automobiles.? Toxic fumes from the burning of plastics or certain other materials.WHAT ARE SOME FIRST-AID MEASURES FOR POISONING?The local poison control center must be contacted whenever a person may have been exposed to poison. The poison forward air controller/air officer will often give a set of directions [...] to identify the medicine to the poison forward air controller/air officer.?? Get away from the area where exposure [...] flush it down the toilet. Use the [facility]'s drug take-back program to dispose of medicine. If these options are not available, take the medicine out of the original container and mix it with an undesirable substance, such as coffee grounds or david litter. Seal the mixture in a sealable bag, can, or other container and throw it away.?? Keep all dangerous household products (such as coil inspector fluid, paint thinner and remover, gasoline, and antifreeze) in locked cabinets. ? Do not mix different household chemicals with each other.? Use protective equipment (gloves, goggles, masks, aprons) as needed when using chemicals or clothes shaker.? Install a carbon monoxide detector in your [...] to find the number.The local emergency services (666 in [place] must be contacted if a [...] 11/19/2014 Document Reviewed: 06/21/2013ExitCare? Patient Information ?2014 [employer]. This information is not intended to replace [...] 09/26/2012 Document Reviewed: 08/05/2009ExitCare? Patient Information ?2014 [employer]. This information is not intended to replace advice given to you by your health care provider. Make sure you discuss any questions you have with your health care provider.GIACOMO Barrios ALICYN D , have received the following patient education materials/instructions and have verbalized understanding: Patient Education Materials: Suicidal Feelings: How to Help Yourself; Poisoning Information, Adult; Nontoxic Ingestion Follow-up Instructions: With: Address: When: [facility] In 3 days 09/13/2017 Prescriptions: Patient Signature Date Clinician/Nurse Signature Date 09/10/17 15:46:57 Normal [facility] Ethanolon 09-10-2017 Ethanol mass conc mg/dL Normal <=7 [facility] Comment on above: Performed By: #### 2 [id number], 68699563, 3270675 ####[facility] [address] [place] [address] Hep Func Panelon 09-10-2017 BILIRUBIN.NON-GLUCURO NIDATED:MSCNC:PT:SER/ PLAS:QN: UTC Abnormal 0.1-0.9 [facility] Comment on above: Result Comment: Resu lt verified by Discern Rule. Performed result UTC (Unable to Calculate) was sent as an Alpha code due the inability to calculate a valid numeric value. Performed By: #### 2 1305204, 67437331, 9926491 ####[facility] [address] [place] [address] Bilirubin.direct mass conc mg/dL Normal 0.1-0.4 [facility] Comment on above: Performed By: #### 2 7827276, 24925413, 5037571 ####[facility] [address] [place] [address] Albumin mass conc 4.7 g/dL Normal 3.3-5.0 [facility] Comment on above: Performed By: #### 2 0248837, 68778917, 2657706 ####[facility] [address] [place] [address] Albumin mass conc 1.4 g/dL Normal 1.1-2.2 [facility] Comment on above: Performed By: #### 2 6906362, 49209371, 6271970 ####[facility] [address] [place] [address] ALP enzyme act/vol 46 Int._Unit/L Normal 21-98 [facility] Comment on above: Performed By: #### 2 9071712, 75730811, 2615890 ####[facility] [address] [place] [address] ALT No additional P-5'-P enzyme act/vol 18 Int._Unit/L Normal 6-46 [facility] Comment on above: Performed By: #### 2 9843927, 06083440, 8613374 ####[facility] [address] [place] [address] AST enzyme act/vol 24 Int._Unit/L Normal 5-43 [facility] Comment on above: Performed By: #### 2 3570116, 65017582, 2991478 ####[facility] [address] [place] [address] Bilirubin mass conc 0.6 mg/dL Normal 0.0-1.1 [facility] Comment on above: Performed By: #### 2 1371010, 71268249, 7499019 ####[facility] [address] [place] [address] Globulin Calculated mass conc (S) 3.4 g/dL Normal 1.4-4.0 [facility] Comment on above: Performed By: #### 2 7704808, 38866055, 7779849 ####[facility] [address] [place] [address] Protein mass conc 8.1 g/dL High 6.0-7.8 [facility] Comment on above: Performed By: #### 2 7799791, 50224082, 4285535 ####[facility] [address] [place] [address] Lipase Levelon 09-10-2017 Lipase enzyme act/vol 17 unit/L Normal 13-58 [facility] Comment on above: Performed By: #### 2 0118587, 06703662, 8691674 ####[facility] [address] [place] [address] Salicylateon 09-10-2017 Salicylates mass conc mg/dL Low 6-29 [facility] Comment on above: Performed By: #### 2 7145842, 96785477, 1489852 ####[facility] [address] [place] [address] U BetaHcg Qualon 09-10-2017 HCG.beta subunit molar conc (U) Negative Normal [facility] Comment on above: Performed By: #### 2 3533113 ####[facility] [address] [place] [address] U Drug Screenon 09-10-2017 Amphetamines Screen method >1000 ng/mL Ql (U) Negative Normal Negative [facility] Comment on above: Result Comment: Nega tive Cutoff: <1000 ng/mL Performed By: #### 2 4814050, 99102772, 6709172 ####[facility] [address] [place] [address] Barbiturates Screen Ql (U) Negative Normal Negative [facility] Comment on above: Result Comment: Nega tive Cutoff: <200 ng/mL Performed By: #### 2 1453584, 27317818, 2180573 ####[facility] [address] [place] [address] Benzodiazepines Screen Ql (U) Negative Normal Negative [facility] Comment on above: Result Comment: Nega tive Cutoff: <200 ng/mL Performed By: #### 2 0521008, 09800808, 3297157 ####[facility] [address] [place] [address] Cocaine Ql (U) Negative Normal Negative [facility] Comment on above: Result Comment: Nega tive Cutoff: <300 ng/mL Performed By: #### 2 7245352, 48787396, 8804356 ####[facility] [address] [place] [address] Opiates Screen Ql (U) Negative Normal Negative [facility] Comment on above: Result Comment: Nega tive Cutoff: <300 ng/mL Performed By: #### 2 7930428, 40970319, 8442428 ####[facility] [address] [place] [address] Phencyclidine Screen method >25 ng/mL Ql (U) Negative Normal Negative [facility] Comment on above: Result Comment: Nega tive Cutoff: <25 ng/mLThese drug screen results are to be used for medical (i.e., treatment) purposes only. Unconfirmed drug screening results must not be used for non-medical purposes (e.g., employment testing, legal testing). Performed By: #### 2 4479333, 30485715, 3977759 ####[facility] [address] [place] [address] Tetrahydrocannabinol Screen method >50 ng/mL Ql (U) Negative Normal Negative [facility] Comment on above: Result Comment: Nega tive Cutoff: <50 ng/mL Performed By: #### 2 3974197, 18200608, 6547126 ####[facility] [address] [place] [address] eGFRon 09-10-2017 GFR/1.73 sq M predicted among blacks MDRD vol rate/area (S/P/Bld) mL/min/{1.73_m2} Normal >=59 [facility] Comment on above: Order Comment: Order added by Discern Expert. Result Comment: eGFR is race adjusted. AA=. Performed By: #### 2 0873358, 10609746, 5845216 ####[facility] [address] [place] [address] GFR/1.73 sq M predicted among non-blacks MDRD vol rate/area (S/P/Bld) mL/min/{1.73_m2} Normal >=59 [facility] Comment on above: Order Comment: Order added by Discern Expert. Result Comment: Microbiology Lab Assistant lona kidney disease could be indicated at eGFR's of less than 60 mL/min/1.73m2. Kidney failure is indicated at less than 15 mL/min/1.73m2. Performed By: #### 2 5432089, 86982242, 2471860 ####[facility] [address] [place] [address] ED Note-Physicianon 07-12-20 ED Note-Physician Patient: JEREMIE [...] . Impression and Plan Diagnosis Acute UTI (LZM32-VS N39.0, Discharge, Medical) Pharyngitis (TFZ10-LF J02.9, Discharge, Medical) Plan Disposition: Discharged: Time [...] the following educational materials: Urinary Tract Infection, Phzh-yf-Hysz, Urinary Tract Infection, Ecyt-ni-Jsrx, Upper Respiratory Infection, Adult, Upper Respiratory Infection, Adult, Urinary Tract Infection, Jxfe-pe-Zkqa, Upper Respiratory Infection, Adult, Urinary Tract Infection, Ndzz-tg-Ljac. Follow up with: XXXX NONE In 3 days 06/16/2017, XXXX NONE In 3 days 06/16/2017; Follow-up for [address] Atkinson in [facility] In 3 days 06/16/2017. Counseled: Patient, Family, Regarding diagnosis, Regarding diagnostic results, Regarding treatment plan, Regarding prescription, Patient indicated understanding of instructions. [facility] Comment on above: Result Comment: [...] IsolatedPerforming LocationsR1: This test was performed at: [facility], [address] [place] [address], [address] , [facility] Comment on above: Performed By: #### 2 [id number] ####[facility] [address] [place] [address] C Urineon 06-15-2017 Bacteria identified Cx Nom [...] SSulfaPerforming LocationsR1: This test was performed at: [facility], [address] [place] [address], [id number]- , [facility] Comment on above: Performed By: #### 2 [id number], [id number], [id number] ####[facility] [address] [place] [address] Coding Summary.on 06-15-2017 Coding Summary. CODING DATE: 017 FINAL [facility] DSC STATUS: Home (Routine DC) PAYOR: [...] Revised Date Saved: 06/15/2017 04:56 pm Normal [facility] ED Clinical Summaryon 2016 ED Clinical Summary (Inserted Image. Mireya ble to display) [address] [address] ED Clinical SummaryPerson Information Name: YVONNE GOODEN/Carlos Alberto_Terry Age: 22 Years : 1995 12:00 AM Sex: Female Language:Kinyarwanda PCP: NONE, XXXX Marital Status:Single Visit Id: [...] PM 06/13/2017 7:46 PM 06/13/2017 7:46 PM ADDRESS:[address] [place] [address] [address] [facility] [address] [facility] DOC NOTES: MEDICAL INFORMATION: Prescriptions Given:Prescription Display cephalexin (Keflex 500 mg Cap) 500 mg = 1 cap(s), Oral, q6hr, X 7 day(s), # 28 cap(s), Refills(s) 0 Home Meds Display ethinyl estradiol-norgestimate (TriNessa oral tablet) Refill(s) 0 fluoxetine (FLUoxetine 10 mg Cap) Refills(s) 0 PATIENT EDUCATION INFORMATION: Instructions:Upper Respiratory Infection, Adult; Urinary Tract Infection, Peni-xt-Kgqn Follow up:With: Address: When: Follow-up for [address] Atkinson in [facility] In 3 days 06/16/2017 With: Address: When: XXXX NONE , [place] In 3 days 06/16/2017 DIAGNOSIS:Acute UTI; Pharyngitis Normal [facility] ED Patient Education Noteon 06-13-2017 ED [...] other symptoms. HOME CARE INSTRUCTIONS? Only take dwjc-ubv-urupdgv or prescription medicines for pain, discomfort, or [...] Revised: 09/26/2012 Document Reviewed: 10/10/2014ExitCare? Patient Information ?2014 [employer]. This information is not intended to replace [...] 03/29/2013 Document Reviewed: 02/02/2013ExitCare? Patient Information ?2014 [employer]. This information is not intended to replace advice given to you by your health care provider. Make sure you discuss any questions you have with your health care provider. Normal [facility] ED Patient Summaryon 017 ED Patient Summary (Inserted Image. Mireya ble to display) [address] [address] Patient Discharge Instructions Person Information Name: YVONNE GOODEN Age: 22 Years Date: 06/13/2017 6:37 PMDischarge Diagnosis: Acute UTI; Pharyngitis Primary Care Physician: NONE, XXXX Provider InformationPrimary Provider: Rony GUZMAN, Ping Policy Director:Jared The exam and treatment you received in the Emergency Department were for an urgent problem and are not intended as complete care. It is important that you follow up with a doctor, nurse practitioner, or physician?s asset protection assistant for ongoing care. If your symptoms [...] [address] Atkinson in [facility] In 3 days 06/16/2017 With: Address: When: XXXX NONE , [place] In 3 days 06/16/2017 In the event that this physician does not participate in your insurance network, please consult with your insurance company to find a nearby participating provider. Patient Education Materials:Upper Respiratory Infection, Adult; Urinary Tract Infection, Mbst-ge-Hyrx Medications Given:Medication Dose Route cephalexin 500.00 mg Oral Medication Information:New MedicationsPrinted Prescriptionscephalexin (Keflex 500 mg Cap) 1 Capsules By Mouth every 6 hours for 7 Days. Refills: 0.Medications to Continue with No ChangesOther Medicationsethinyl estradiol-norgestimate (TriNessa oral tablet) fluoxetine (FLUoxetine 10 mg Cap) Comment: Pharmacy Information: Thank you for choosing [facility] Patient Education Materials: Upper Respiratory Infection, AdultAn [...] other symptoms. HOME CARE INSTRUCTIONS? Only take ixwn-bjd-rnfxexn or prescription medicines for pain, discomfort, or [...] 09/26/2012 Document Reviewed: 10/10/2014ExitCare? Patient Information ?2015 [employer]. This information is not intended to replace [...] 03/29/2013 Document Reviewed: 02/02/2013ExitCare? Patient Information ?2015 [employer]. This information is not intended to replace advice given to you by your health care provider. Make sure you discuss any questions you have with your health care provider.IGIACOMO, ALICYN D , have received the following patient education materials/instructions and have verbalized understanding: Patient Education Materials: Upper Respiratory Infection, Adult; Urinary Tract Infection, Tfgb-sk-Ocfh Follow-up Instructions: With: Address: When: Follow-up for [address] Atkinson in [facility] In 3 days 06/16/2017 With: Address: When: XXXX NONE , [place] In 3 days 06/16/2017 Prescriptions: [cephalexin (Keflex 500 mg Cap)] Patient Signature Date Clinician/Nurse Signature Date 06/13/17 19:46:34 Normal [facility] U BetaHcg Qualon 06-13-2017 HCG.beta subunit molar conc (U) Negative Normal [facility] Comment on above: Performed By: #### 2 [id number], [id number], [id number] ####[facility] [address] [place] [address] UA With Cult Reflexon 2016 Bacteria LM Ql (Urine sed) TRACE Normal Trace [facility] Comment on above: Performed By: #### 2 [id number], [id number], [id number] ####[facility] [address] [place] [address] Bilirubin Ql (U) Negative Normal Negative [facility] Comment on above: Performed By: #### 2 [id number], [id number], [id number] ####[facility] [address] [place] [address] Clarity Nom (U) CLEAR Normal Clear [facility] Comment on above: Performed By: #### 2 [id number], [id number], [id number] ####[facility] [address] [place] [address] Color Auto Nom (U) STRAW Abnormal Yellow [facility] Comment on above: Performed By: #### 2 [id number], [id number], [id number] ####[facility] [address] [place] [address] Epithelial cells.squamous LM.HPF #/area (Urine sed) 0-2 Normal 0-2 [facility] Comment on above: Performed By: #### 2 [id number], [id number], [id number] ####[facility] [address] [place] [address] Glucose Test strip mass conc (U) Negative Normal Negative [facility] Comment on above: Performed By: #### 2 [id number], [id number], [id number] ####[facility] [address] [place] [address] Hemoglobin Test strip Ql (U) TRACE Abnormal Negative [facility] Comment on above: Performed By: #### 2 [id number], [id number], [id number] ####[facility] [address] [place] [address] Ketones mass conc (U) Negative Normal Negative Fis [facility] Comment on above: Performed By: #### 2 [id number], [id number], [id number] ####[facility] [address] [place] [address] Manley.plasma/Lithiu m.RBC mass ratio (Bld) 0-3 Normal 0-3 [facility] Comment on above: Performed By: #### 2 [id number], [id number], [id number] ####[facility] [address] [place] [address] Mucus LM Ql (Urine sed) 1+ Normal [facility] Comment on above: Performed By: #### 2 [id number], [id number], [id number] ####[facility] [address] [place] [address] Nitrite Test strip Ql (U) Negative Normal Negative [facility] Comment on above: Performed By: #### 2 [id number], [id number], [id number] ####[facility] [address] [place] [address] pH Test strip (U) 5.5 [pH] Invalid Interpretation Code 5.0-9.0 [facility] Comment on above: Performed By: #### 2 [id number], [id number], [id number] ####[address] [address] Protein mass conc (U) Negative Normal Negative Fis [facility] Comment on above: Performed By: #### 2 [id number], [id number], [id number] ####[place] [address] Specific gravity Relative Density (U) 1.020 Invalid Interpretation Code 1.005-1.03 0 [facility] Comment on above: Performed By: #### 2 [id number], [id number], [id number] ####[place] [address] UA Spec Desc Clean Catch Normal [facility] Comment on above: Performed By: #### 2 [id number], [id number], [id number] ####[place] [address] Urobilinogen Test strip Qn (U) 0.2 {Krista'U}/dL Normal 0.0-1.0 [facility] Comment on above: Performed By: #### 2 [id number], [id number], 3571060 ####[place] [address] WBC Auto Ql (U) 1+ Abnormal Negative [facility] Comment on above: Performed By: #### 2 [id number], [id number], [id number] ####[place] [address] WBC LM.HPF #/area (Urine sed) 16-25 Abnormal 0-5 [facility] Comment on above: Performed By: #### 2 [id number], [id number], [id number] ####[address] [place] [address] Vital Signs Date Time Vital Sign Value Performing Clinician Facility 01-26-2025 11:25-0400 Body mass index (BMI) [Ratio] 24.72 kg/m2 [facility] 01-26-2025 11:25-0400 Body weight 65.32 kg Bipin Ob [facility] 01-26-2025 11:25-0400 Diastolic blood pressure 70 mm[Hg] [facility] 01-26-2025 11:25-0400 Systolic blood pressure 110 mm[Hg] [facility] 01-02-2025 11:11-0400 Body height 162.6 cm Dejan Bipin DO Work Phone: [facility] 01-02-2025 11:11-0400 Body mass index (BMI) [Ratio] 25.4 kg/m2 Dejan Bipin DO Work Phone: [facility] 01-02-2025 11:11-0400 Body weight 67.13 kg Dejan Bipin DO Work Phone: [facility] 01-02-2025 11:11-0400 Diastolic blood pressure 70 mm[Hg] Dejan Bipin DO Work Phone: [facility] 01-02-2025 11:11-0400 Systolic blood pressure 110 mm[Hg] Dejan Bipin DO Work Phone: [facility] 08-22-2024 15:06-0500 Body mass index (BMI) [Ratio] 26.45 kg/m2 Dejan Bipin DO Work Phone: [facility] 08-22-2024 15:06-0500 Body weight 66.13 kg Dejan Bipin DO Work Phone: [facility] 08-22-2024 15:06-0500 Diastolic blood pressure 60 mm[Hg] Dejan Bipin DO Work Phone: [facility] 08-22-2024 15:06-0500 Systolic blood pressure 118 mm[Hg] Dejan Bipin DO Work Phone: [facility] 10-17-2023 11:50-0400 Body height 162.56 cm AR[employer]URE W[employer]ER REPAIR HELPER Juan Swartz Work Phone: [facility] 10-17-2023 11:50-0400 Body temperature 97.9 [degF] ARMATURE WINDER REPAIR HELPERJarred Swartz Work Phone: [facility] 10-17-2023 11:50-0400 Body weight 66.1 kg AR[employer]URE W[employer] REPAIR HELPER Juan Swartz Work Phone: [facility] 10-17-2023 11:50-0400 Diastolic blood pressure 60 mm[Hg] ARMATURE WINDER REPAIR HELPERJarred Swartz Work Phone: [facility] 10-17-2023 11:50-0400 Heart rate 91 /min ARMATURE WINDER REPAIR HELPERJarred Swartz Work Phone: [facility] 10-17-2023 11:50-0400 Respiratory rate 16 /min AR[employer]URE W[employer]ER REPAIR HELPER Juanbear Swartz Work Phone: [facility] 10-17-2023 11:50-0400 SaO2% (BldA) [Mass fraction] 97 % AR[employer]URE W[employer]ER REPAIR HELPER Juanbear Swartz Work Phone: [facility] 10-17-2023 11:50-0400 Systolic blood pressure 126 mm[Hg] ARMATURE WINDER REPAIR HELPERJarred Swartz Work Phone: [facility] Encounters Encounter Date Encounter Type Care Provider Facility Start: 01-26-2025 End: 01-26-2025 Office outpatient visit 5 minutes Bipin Nurse [facility] Comment on above: GA: 8w0d Start: 01-26-2025 End: 01-26-2025 ambulatory DEJAN BIPIN Not Available Start: 01-10-2025 End: 01-10-2025 ambulatory DEJAN BIPIN Not Available Start: 01-08-2025 End: 01-08-2025 Clinisync Result Encounter Dejan Bipin DO Work Phone: [facility] Unsolicited Start: 01-08-2025 End: 01-08-2025 Clinisync Result Encounter Dejan Bipin DO Work Phone: [facility] Unsolicited Start: 01-06-2025 End: 01-06-2025 Clinisync Result Encounter Dejan Bipin DO Work Phone: [facility] Unsolicited Start: 01-06-2025 End: 01-06-2025 Clinisync Result Encounter Dejan Bipin DO Work Phone: [facility] Unsolicited Start: 01-02-2025 End: 01-02-2025 Bamboo flowsheet Dejan Bipin DO Work Phone: [facility] Start: 01-02-2025 End: 01-02-2025 Bamboo flowsheet Dejan Bipin DO Work Phone: [facility] Start: 01-02-2025 End: 01-02-2025 ambulatory [...] 10-17-2023 End: 10-17-2023 Emergency department patient visit HAWA Swartz Work Phone: [facility] Work Phone: Start: 05-06-2022 End: 05-06-2022 ambulatory DO Juan Cerna Work Phone: [facility] Work Phone: Start: 05-06-2022 End: 05-06-2022 Patient encounter procedure DO Juan Cerna Work Phone: [facility] [place] Start: 02-26-2020 End: 02-27-2020 Patient encounter procedure ROCCO WEBBER Facility: Start: 02-02-2018 End: 02-03-2018 Patient encounter Mirza Cheng Facility:CD:[id number] Start: 01-28-2018 End: 01-29-2018 Patient encounter Mirza Cheng Facility:CD:[id number] Start: 09-10-2017 End: 09-10-2017 Emergency department patient visit XXXX NONE Facility:[facility] Start: 06-13-2017 End: 06-13-2017 Emergency department patient visit XXXX NONE Facility:[facility] Procedures Date Procedure Procedure Detail Performing Clinician Start: 01-26-2025 Urnls dip stick/tabl et rgnt non-auto w/o micrscp Dejan Bipin DO Work Phone: Start: 01-08-2025 [facility] PREG QUANT HCG Core y Bipin DO Work Phone: Start: 01-06-2025 [facility] PREG QUANT HCG Core y Bipin DO Work Phone: Start: 01-02-2025 Urnls dip stick/tabl et rgnt non-auto w/o micrscp Dejan Bipin DO Work Phone: Start: 11-27-2024 [facility] PREG QUANT HCG Core y Bipin DO Work Phone: Start: 11-24-2024 [facility] PREG QUANT HCG Core y Bipin DO Work Phone: Start: 11-22-2024 OB TRANSVAGINAL Core y Bipin DO Work Phone: Start: 08-28-2024 [facility] PREG QUANT HCG Core y Bipin DO Work Phone: Start: 10-17-2023 Streptococcus pyogen es antigen assay AR[employer]URE [employer] REPAIR HELPER Juan Sheridan Work Phone: Plan of Treatment Date Care Activity Detail Author Start: 02-27-2025 End: 02-27-2025 Patient encounter procedure 02/27/2025 9:20 AM EDT Routine [facility] [address] [place] [address] Dejan Voss, DO [address] [place] [address] [facility] Start: 01-26-2025 End: 01-26-2026 ABO/Rh ABO/Rh Lab Routine Missed menses , unspecified gestational age ([facility]) Expected: 01/26/2025 (Approximate), Expires: 01/26/2026 [facility] Comment on above: Expected: 01/26/2025 (Approximate), Expires: 01/26/2026 Start: 01-26-2025 End: 01-26-2026 Blood type and Indirect antibody screen panel - Blood Type and screen Lab Routine Missed menses , unspecified gestational age ([facility]) Expected: 01/26/2025 (Approximate), Expires: 01/26/2026 [facility] Work Phone: Comment on above: Expected: 01/26/2025 (Approximate), Expires: 01/26/2026 Start: 01-26-2025 End: 01-26-2026 Drugs of abuse panel - Urine by Screen method Rapid drug screen, urine Lab Routine , unspecified gestational age ([facility]) Encounter for supervision of normal first in first trimester ([facility]) Expected: 01/26/2025 (Approximate), Expires: 01/26/2026 [facility] Comment on above: Expected: 01/26/2025 (Approximate), Expires: 01/26/2026 Start: 12-08-2024 End: 12-08-2024 ambulatory 12/08/2024 10:00 AM EDT Initial [facility] [address] [place] [address] [facility] Start: 12-08-2024 End: 12-08-2024 Professional / ancillary services management 12/08/2024 9:30 AM EDT Ancillary Procedure [facility] [place] [address] [place] [address] [facility] Start: 08-22-2024 End: 08-22-2024 Patient encounter procedure 08/22/2024 2:10 PM EST Office Visit [facility] OB [address] [place] [address] Dejan Voss, [address] [place] [address] Arrived [facility] Comment on above: Arrived Start: 08-22-2024 End: 08-22-2025 DHEA DHEA Lab Routine PCOS (polycystic ovarian syndrome) Expected: 08/22/2024 (Approximate), Expires: 08/22/2025 [facility] Comment on above: Expected: 08/22/2024 (Approximate), Expires: 08/22/2025 Start: 10-17-2023 SARS-CoV-2, Influenz a & RSV (PCR) SARS-CoV-2, Influenza & RSV (PCR) [facility] Start: 10-17-2023 [facility] Bacteria identified in Urine by Culture Urine culture Microbiology Routine Missed menses Ordered: 01/26/2025 [facility] Comment on above: Ordered: 01/26/2025 CBC W Auto Different ial panel - Blood CBC and differential Lab Routine PCOS (polycystic ovarian syndrome) Ordered: 08/22/2024 [facility] Comment on above: Ordered: 08/22/2024 CBC W Auto Different ial panel - Blood CBC and differential Lab Routine Missed menses , unspecified gestational age ([facility]) Ordered: 01/26/2025 [facility] Comment on above: Ordered: 01/26/2025 DHEA-sulfate DHEA-sulfate Lab Routine PCOS (polycystic ovarian syndrome) Ordered: 08/22/2024 [facility] Comment on above: Ordered: 08/22/2024 Follicle stimulating hormone Follicle stimulating hormone Lab Routine PCOS (polycystic ovarian syndrome) Ordered: 08/22/2024 [facility] Comment on above: Ordered: 08/22/2024 hCG, quantitative, hCG, quantitative, Lab Routine PCOS (polycystic ovarian syndrome) Ordered: 08/22/2024 [facility] Work Phone: Comment on above: Ordered: 08/22/2024 Hemoglobin A1c/Hemoglobin.total in Blood Hemoglobin A1c Lab Routine Hormone imbalance Ordered: 08/22/2024 [facility] Comment on above: Ordered: 08/22/2024 Hemoglobin A1c/Hemoglobin.total in Blood Hemoglobin A1c Lab Routine Missed menses , unspecified gestational age ([facility]) Ordered: 01/26/2025 [facility] Comment on above: Ordered: 01/26/2025 Hepatitis B virus surface Ag [Presence] in Serum or Plasma by Immunoassay Hepatitis B surface antigen Lab Routine Missed menses , unspecified gestational age ([facility]) Ordered: 01/26/2025 [facility] Comment on above: Ordered: 01/26/2025 Hepatitis C virus Ab [Presence] in Serum or Plasma by Immunoassay Hepatitis C antibody Lab Routine Missed menses , unspecified gestational age ([facility]) Ordered: 01/26/2025 [facility] Comment on above: Ordered: 01/26/2025 HIV-1/HIV-2 antigen/antibody combination immunoassay HIV-1 and HIV-2 antibodies Lab Routine Missed menses , unspecified gestational age ([facility]) Ordered: 01/26/2025 [facility] Comment on above: Ordered: 01/26/2025 Luteinizing hormone Luteinizing hormone Lab Routine PCOS (polycystic ovarian syndrome) Ordered: 08/22/2024 [facility] Comment on above: Ordered: 08/22/2024 Patient Education Strep Throat (DC) [facility] Work Phone: Patient referral [facility] Work Phone: Progesterone Progesterone Lab Routine Hormone imbalance Ordered: 08/22/2024 [facility] Comment on above: Ordered: 08/22/2024 Reagin Ab [Presence] in Serum by RPR RPR Lab Routine Missed menses , unspecified gestational age ([facility]) Ordered: 01/26/2025 [facility] Comment on above: Ordered: 01/26/2025 Rubella antibody, IgG Rubella an tibody, IgG Lab Routine Missed menses , unspecified gestational age ([facility]) Ordered: 01/26/2025 [facility] Comment on above: Ordered: 01/26/2025 Thyrotropin [Units/volume] in Serum or Plasma TSH Lab Routine PCOS (polycystic ovarian syndrome) Ordered: 08/22/2024 [facility] Comment on above: Ordered: 08/22/2024 Thyroxine (T4) free [Mass/volume] in Serum or Plasma T4, free Lab Routine PCOS (polycystic ovarian syndrome) Ordered: 08/22/2024 [facility] Comment on above: Ordered: 08/22/2024 Payers Date Payer Category Payer [place] [employer] [id number] 2025 Unknown [id number] 2021 Private Health Insurance [facility] [id number] 2021 Unknown [id number] 2017 Self-pay 1995 Unknown [id number] 1995 Unknown [id number] 2.1259 1995 Unknown [id number] [id number] 1995 Unknown [id number]. [id number] 1995 Unknown [id number]. 2.1259 1995 Unknown [id number] 2.1259 1959 Unknown [id number] Private Health Insurance [facility] [id number] Unknown Valerie VELOZ/JACOBO [id number] Unknown [id number] [id number] Social History Date Type Detail Facility Tobacco smoking stat us [facility] Unknown if ever smoked [facility] Work Phone: Start: 1995 Sex Assigned At Female F [facility] Start: 02-07-2023 End: 10-17-2023 Tobacco smoking status AKIS Never smoked tobacco (finding) [facility] Start: 07-13-2023 End: 01-26-2025 Alcoholic beverage intake Current drinker of alcohol [...] Identifies as female gender (finding) [facility] Start: 12-15-2024 [facility] NEGATED: Highlighted row [facility] History of Present illness Narrative 01-26-2025 Raysa Sheikh MA - 01/26/2025 10:30 AM EDT Note Date & Type Note Facility 01-26-2025 History of Presen t illness Narrative Reason [...] difficile colitis 2014 History of medical problems Family History Problem [...] (08/09)- ASCUS, HPV pos WISDOM TOOTH EXTRACTION 2015 Allergies Allergen Reactions Bee Venom Anaphylaxis Honey Bee Venom Anaphylaxis Other Reaction(s): Unknown Reaction Vitals: Estimated body mass index is 24.72 kg/m as calculated from the following: Height [...] dipstick manually resulted , unspecified gestational age ([facility]) - Type and screen; Future - ABO/Rh; Future - CBC and differential - Hemoglobin A1c - RPR - Rubella antibody, IgG - Hepatitis B surface antigen - Hepatitis C antibody - HIV-1 and HIV-2 antibodies - Rapid drug screen, urine; Future Encounter for supervision of normal first in first trimester ([facility]) - Rapid drug screen, urine; Future 8 weeks gestation of ([facility]) H/O hypotension Nurse Note: Pt desires [place] billion to one. Pt was advised to make sure she does both and unity labs together at 9 weeks. PVU, pt is currently 8 wk 0d today. Pt states she had h/o hypotension w/G1 and currently on progesterone suppositories due to a miscarriage in the past. Pt is aware to continue w/progesterone until 12 weeks and to call office if in need of refills. [facility] OB Intake: Patient presents today for first OB visit. Patients history has been reviewed in great detail including any potential risks. Patient signed consent forms and patient desires testing in both trimesters. Patient currently has no complaints and has been advised to drink 6-8 glasses of water a day, eat no raw or undercooked meat, and stay away from [facility]. Patient has also been advised to not change litter boxes and eat 6 small meals a day. Patient has been consulted regarding the do's and don'ts of . Patient was given labs and all questions [...] Raysa Sheikh MA documented in this encounter [facility] History of Present illness Narrative 01-02-2025 Ana Cristina Romero, INSTRUCTIONAL SERVICES SPECIALIST - 01/02/2025 10:50 AM EDT Note Date [...] nursing note reviewed. Exam conducted with a sales administrator present. Vitals: Estimated body mass index is 25.4 kg/m as calculated from the following: Height as of this encounter: 5' 4 . Weight as of this encounter: 148 lb. BP: 110/70 No LMP recorded (lmp unknown). ASSESSMENT & PLAN ICD-10-CM 1. Miscarriage ([facility]) O03.9 POCT urinalysis dipstick manually resulted Patient [...] nursing note reviewed. Exam conducted with a sales administrator present. Vitals: Estimated body mass index is [...] Dejan Voss DO documented in this encounter [facility] Evaluation note Note Date & Type Note Facility Evaluation note No [facility]: Evaluation note Note Date & Type Note Facility Evaluation note Diagnosis Encounter for fertility planning PCOS (polycystic ovarian syndrome) Polycystic ovaries Hormone imbalance documented in this encounter [facility] Evaluation note Note Date & Type Note Facility Evaluation note Diagnosis Miscarriage ([facility]) Unspecified spontaneous without mention of complication documented in this encounter [facility] Evaluation note Note Date & Type Note Facility Evaluation note Diagnosis Amenorrhea Absence of menstruation Missed menses , unspecified gestational age ([facility]) Encounter for supervision of normal first in first trimester ([facility]) 8 weeks gestation of ([facility]) H/O hypotension documented in this encounter [facility] Summary Purpose Family History No Family [...] section and content) DATE CREATED AUTHOR [facility]16/2018 [facility] DATE CREATED AUTHOR AUTHOR'S ORGANIZ ATION 03/06/2020 [facility] DATE CREATED AUTHOR AUTHOR'S ORGANIZ ATION 01/02/2024 [facility] DATE CREATED AUTHOR AUTHOR'S ORGANIZ ATION 01/30/[address] [facility] d[facility] Specialists [facility] Care Teams (unrecognized sec tion and content) [...] October 17, 2023 End: October 17, 2023 Weight Caller Relationship Specialty Start Date End Date Gregorio Garcia MD [address] [place] [address] PCP - General Family Medicine 10/18/23 Weight Caller Relationship Specialty Start Date End Date Gregorio Garcia MD [address] [place] [address] PCP - General Family Medicine 10/18/23 Weight Caller Relationship Specialty Start Date End Date Gregorio Garcia MD [address] [place] [address] PCP - General Family Medicine 10/18/23 Weight Caller Relationship Specialty Start Date End Date Gregorio Garcia MD PCP - General Family Medicine 10/18/23 Weight Caller Relationship Specialty Start Date End Date Gregorio Garcia MD [address] [place] [address] PCP - General Family Medicine 10/18/23 Weight Caller Relationship Specialty Start Date End Date Gregorio Garcia MD [address] [place] [address] PCP - General Family Medicine 10/18/23 Weight Caller Relationship Specialty Start Date End Date Gregorio Garcia MD [address] [place] [address] PCP - General Family Medicine 10/18/23 Goals (unrecognized section and content) Goals may be documented in a n alternate sectionGoals may be documented in an alternate section Reason for Visit (unrecogniz ed section and content) Reason Comments Fertility Consult Breast Pain Reason Comments Miscarriage Pt present today to discuss recent miscarriage. Reason Comments Amenorrhea FOR RECORDS PERTAINING TO PATIENTS WHO ARE [...] BE BASED ON THE PRIMARY CLINICAL RECORDS. [facility]. provides no warranty or guarantee of the accuracy or completeness of information in this document.
[2025-02-02 10:19] LABS: Hematocrit 41.6 % (36.0-48.0); Hemoglobin 14.6 g/dL (12.0-16.0); Immature Granulocytes Abs Auto 0.01 10^3/uL (0.00-0.03); Immature Granulocytes Pct Auto 0.1 % (0.0-0.5); Lymphocytes Absolute Auto 2.0 10^3/uL (1.2-3.8); Mean Corpuscular HGB Conc 35.1 g/dL (29.9-35.2); Mean Corpuscular Hemoglobin 31.1 pg (26.7-34.0); Mean Corpuscular Volume 88.5 fL (81.0-99.0); Platelet Count 256 10^3/uL (150-450); Red Blood Count 4.70 10^6/uL (4.20-5.40); White Blood Count 6.9 10^3/uL (4.0-11.0)
[2025-02-02 10:36] LABS: Cannabinoid Screen Urine NEGATIVE (NEGATIVE); Methamphetamines Screen Urine NEGATIVE (NEGATIVE); Tricyclic Antidepressant Urine NEGATIVE (NEGATIVE)
[2025-02-03 05:07] LABS: Rubella Antibodies, IgG 2.16 index (Immune >0.99)
[2025-02-03 11:08] LABS: Rapid Plasma Reagin, Quant Non Reactive titer (NonRea<1:1)
== END 2025-02-02 09:48 | disposition home or self-care (01) ==
LOC: LAB 09:47
PROVIDERS: PCP Family Medicine; Visit Provider Obstetrics & Gynecology
DX: Z34.01 Encounter for supervision of normal first pregnancy, first trimester (principal); N92.6 Irregular menstruation, unspecified
CPT/HCPCS: 36415; 80307; 83036; 85025; 86592; 86762; 86803; 86850; 86900; 86901; 87086; 87340; 87389

== ENCOUNTER 2025-03-01 06:52 | Inpatient (IN) | payer SELFPAY ==
--- OUTSIDE RECORDS SUMMARY | 2024-06-12 07:10 | XMS_ITS ---
Author Organization [facility] Address [address] [place] [address] Care Team Providers Care Die Presser Name Role Phone Gregorio Garcia Primary Care Provider Dane Chowdhury [facility] [phone] Results Component Value Reference Range Notes SCC- WRIST 3 VIEW RIGHT 7311 0 Reviewed date:07/25/2024 12:42:11 PM Interpretation: Performing Lab: Notes/Report: SCC- WRIST 3 VIEW LEFT 11638 Reviewed date:07/25/2024 12:42:17 PM Interpretation: Performing Lab: Notes/Report: REASON FOR VISIT BILAT WRIST GANGLION CYST Encounters Encounter Location Date Provider Diagnosis [facility] [facility] [address] [place] [address] [address] [place] [address] 06/12/2024 Dane Cordova Pain in right wrist M25.531 and Pain in left wrist M25.532 Assessments Encounter Date Diagnosis (ICD Code) Assessment Notes Treatment Notes Treatment Clinical Notes Section Notes 06/12/2024 Pain in right wrist (ICD-10 - M25.531) 06/12/2024 Pain in left wrist (ICD-10 - M25.532) Plan Of Treatment No Information Progress Notes * CARINA CANALES DDOB: [birth year] (29 yo F)Acc No.[id number]:06/12/2024 Patient: Bisi CARINA DARBY Provider: Bisi Cordova MD :1995 A ge:29 Y S ex:Female Date:06/12/2024 Address:[address] [id number] Pcp:Gregorio Garcia Subjective: * Chief Complaints: * 1 . BILAT WRIST GANGLION CYST. * Medical History: Objective: * Vitals: Assessment: * Assessment: 1. P ain in right wrist - M25.531 2 . P ain in left wrist - M25.532 ? Plan: * Treatment: 2. P ain in left wrist I maging: SCC- WRIST 3 VIEW LEFT 19572 (Performed Date - 07/25/2024) Forms: * Images: * Electronic signature of Yusuf Cordova MD on 03/01/2025 at 07:06 AM EDT Sign off status: Pending * Provider: Bisi Cordova MD Date: 1 08/12/2023 Generated for Kaushik almanza/Bernice/Johnitting on: 0 03/01/2025 07:06 AM EDT
--- OUTSIDE RECORDS SUMMARY | 2024-11-16 04:58 | XMS_ITS ---
Author Organization The [facility] in [place] Address [address] [place] [address] Care Team Providers Care Hardware Trainer Name Role Phone Graygill Jai Primary Care Provider REASON FOR VISIT nm thyroid uptake Encounters Encounter Location Date Provider Diagnosis [facility] [address] [facility] [place] [address] 11/16/2024 Jai Garcia Plan Of Treatment No Information Progress Notes * Yvonne BAKER DDOB: [birth year] (29 yo F)Acc No.[id number]:11/16/2024 Patient: Bisi DARBY Yvonne Lopez :1995 A ge:29 Y S ex:Female Address:[address] [facility] [address] * true * Date: Generated for Kaushik almanza/Bernice/eTransmitting on: 0 03/01/2025 07:05 AM EDT
--- OUTSIDE RECORDS SUMMARY | 2024-11-28 12:10 | XMS_ITS ---
Author Organization [facility] in [place] Address [address] [place] [address] Care Team Providers Care R And D Lab Technician Name Role Phone Jai Garcia Primary Care Provider REASON FOR VISIT cold symptoms Medications Medication SIG (Take, Route, Fr equency, Duration) Notes Start Date End Date Status Azithromycin 250 MG 2 tabs today then 1 tab Orally daily for 5 days 11/28/2024 Active Encounters Encounter Location Date Provider Diagnosis [facility] [place] [address] 11/28/2024 Jai Garcia Plan Of Treatment Medication Medication Name Sig Start Date Stop Date Notes Azithromycin 250 MG 2 tabs today then 1 tab Orally daily for 5 days 11/28/2024 Progress Notes * Yvonne BAKER DDOB: 7 (29 yo F)Acc No.[id number]:11/28/2024 Patient: Bisi BILLYLinnYvonne :1995 A ge:29 Y S ex:Female Address:[address] [facility] [address] * Refills Start Azithromycin Tablet, 250 MG, Orally, 6, 2 tabs today then 1 tab, daily, 5 days, Refills=0 * true * Date: Generated for Dexi cami/Zaidg/eTransmitting on: 0 03/01/2025 07:05 AM EDT
--- OUTSIDE RECORDS SUMMARY | 2025-02-27 09:20 | XMS_ITS | Encounter Summary ---
Author Organization [facility] Address [address] [place] [address] Care Team Providers Care Boat Captain Name Role Phone Gregorio Garcia MD Primary Care Provider [phone] Reason for Visit * Reason Comments Routine Visit Encounter Details Date Type Department Care Team (Late st Contact Info) Description 02/27/2025 9:20 AM EDT Routine [facility] [address] [place] [phone] Juan Voss DO 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 female who presents for Routine Visit Patient presents today for Return OB appointment. MEDICATIONS Current Outpatient Medications Medication Instructions ondansetron ODT (ZOFRAN-ODT) 4 mg, Oral, Every 6 hours ALLERGIES Allergies Allergen Reactions Bee Venom Anaphylaxis Honey Bee Venom Anaphylaxis Other Reaction(s): Unknown Reaction PROBLEMS Active Ambulatory [...] nursing note reviewed. Exam conducted with a gun synchronizer present. Vitals: Estimated body mass index is 24.55 kg/m?? as calculated from the following: Height as of 01/02/25: 5' 4 . Weight as of this encounter: 143 lb. BP: 118/70 No LMP recorded (lmp unknown). Patient is . ASSESSMENT & PLAN ICD-10-CM 1. 12 weeks gestation of ([facility]) Z3A.12 POCT urinalysis dipstick manually resulted 2. First trimester ([facility]) Z34.91 POCT urinalysis dipstick manually resulted New OB: Pt was seen in office for new ob appt. Unable to hear or see heartbeat on bedside scan, pt being sent for official ultrasound Orders Placed This Encounter Procedures POCT urinalysis dipstick manually resulted Follow Up: Patient is to return in 4 weeks for routine OB appointment. Documented by Ana Cristina Romero LPN on behalf of: Juan Voss DO documented in this encounter Plan of Treatment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 documented as of this encounter Procedures Procedure Name Priority Date/Time Associated Diagnosis Comments US OB TRANSVAGINAL Routine 02/27/2025 11 :34 AM EDT Threatened miscarriage in early ([facility]) POCT URINALYSIS DIPSTICK Routine 02/27/2025 9:41 AM EDT 12 weeks gestation of ([facility]) First trimester ([facility]) documented in this encounter Results * US OB transvaginal (02/27/2025 11:34 AM EDT) Anatomical Region Laterality Modality Body Ultrasound 02/27/2025 1:30 PM EDT Impressions 02/27/2025 2:36 PM EDT No cardiac activity identified, crown rump length suggesting a 13 week and 0 day gestational age. TRANSCRIBED BY: ELECTRONICALLY SIGNED BY: Brent Moore MD Narrative 02/27/2025 2:36 PM EDT FINDINGS: Single intrauterine gestational sac with a pole measuring 6.6 cm which would be consistent with a 13-week and 0-day gestational age however there is no cardiac or activity identified. Cervix is closed, 5.0 cm length. No pelvic fluid. Procedure Note Brent Moore MD - 02/27/2025 FINDINGS: Single intrauterine gestational sac with a pole measuring 6.6 cmwhich would be consistent with a 13-week and 0-day gestational age howeverthere is no cardiac or activity identified. Cervix is closed, 5.0 cm length. No pelvic fluid. IMPRESSION: No cardiac activity identified, crown rump length suggesting a 13 week and0 day gestational age. TRANSCRIBED BY: ELECTRONICALLY SIGNED BY: Brent Moore MD us Juan Bipin DO IMG OB US PROCEDURES Final Resul t * (ABNORMAL) POCT urinalysis dipstick manually resulted (02/27/2025 9:41 AM EDT) Color, UA Yellow Clarity, UA Clear Glucose, UA Negative Negative - 2000(110) ++++ mg/dL Bilirubin, UA Negative Negative - 4(70) +++ mg/dL Ketones, UA Negative Negative - 160(16) ++++ mg/dL Spec Grav, UA 1.025 1 - 1.03 Blood, UA Positive Negative - 50 Ronal/mcL pH, UA 6.0 5 - 9 Protein, UA Negative Negative - 2000(20) ++++ mg/dL Urobilinogen, UA 1.0 0.2 - 12 mg/dL Leukocytes, UA Positive Negative - 500+++ Gilbert/mcL Comment:3+ Nitrite, UA Negative Negative - Positive Urine 02/27/2025 9:41 AM EDT Juan Voss DO POINT OF CARE TEST ENTER/EDIT OR DERABLES Final Result documented in this encounter Visit Diagnoses Diagnosis 12 weeks gestation of ([facility]) First trimester ([facility]) state, incidental Threatened miscarriage in early ([facility]) documented in this encounter Care Teams Boat Captain Relationship Specialty Start Date End Date Gregorio Garcia MD [address] [place] [phone] PCP - General Family Medicine 10/18/23 documented as of this encounter
--- OUTSIDE RECORDS SUMMARY | 2025-02-27 10:34 | XMS_ITS ---
Author Organization [facility] [place] Address [address] [place] [address] Care Team Providers Care Boat Dock Operator Name Role Phone Jai Garcia Primary Care Provider REASON FOR VISIT miscarriage Medications Medication SIG (Take, Route, Fr equency, Duration) Notes Start Date End Date Status ALPRAZolam 0.25 MG 1-2 tabs Orally prn for 7 days F41.9 - recommend trying two at hs 02/27/2025 Active Encounters Encounter Location Date Provider Diagnosis [address] [address] 02/27/2025 Jai Garcia Plan Of Treatment Medication Medication Name Sig Start Date Stop Date Notes ALPRAZolam 0.25 MG 1-2 tabs Orally prn for 7 days 02/28/20 25 Progress Notes * Yvonne BAKER DDOB: 7 (29 yo F)Acc No.[id number]:02/27/2025 Patient: Bisi Yvonne DARBY :1995 A ge:29 Y S ex:Female [address] [facility] [address] * Refills Start ALPRAZolam Tablet, 0.25 MG, Orally, 21, 1-2 tabs, prn, 7 days, Refills=0 * true * Date: Generated for Printi ng/Faxing/eTransmitting on: 0 03/01/2025 07:05 AM EDT
--- OUTSIDE RECORDS SUMMARY | 2025-02-27 11:00 | XMS_ITS | Encounter Summary ---
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 documented as of this encounter Plan of Treatment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 documented as of this encounter Procedures Procedure Name Priority Date/Time Associated Diagnosis Comments US OB TRANSVAGINAL Routine 02/27/2025 11 :34 AM EDT Threatened miscarriage in early ([facility]) documented in this encounter Results [...] SIGNED BY: Brent Moore MD us Juan Voss DO IMG OB US PROCEDURES Final Resul t documented in this encounter Visit Diagnoses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documented in this encounter Care Teams Guide Visitor Relationship Specialty Start Date End Date Gregorio Garcia MD [address] [place] [address] PCP - General Family Medicine 10/18/23 documented as of this encounter
[2025-03-01] VITALS (29 sets, daily range): BP systolic 98–131; BP diastolic 50–69; PULSE 65–100; TEMP 36.3–37; O2SAT 96–98
--- OUTSIDE RECORDS SUMMARY | 2025-03-01 07:05 | XMS_ITS | Encounter Summary ---
Author Organization [facility] Address [address] [place] [address] Care Team Providers Care Coil Connector Name Role Phone Juan Cerna DO Primary Care Provider + [phone] Gregorio Garcia MD Primary Care Provider [phone] Encounter Details Date Type Department Care Team (Late st Contact Info) Description 01/13/2023 Abstract [facility] [address] [place] [address] Juan Voss DO [address] [place], [place] [phone] Social History Tobacco Use Types Packs/Day Years [...] on filedocumented in this encounter Care Teams Coil Connector Relationship Specialty Start Date End Date Juan Cerna DO [address] [facility] [place] [address] PCP - General Family Medicine 02/02/23 10/17/23 Gregorio Garcia MD [address] [facility] [place] [address] PCP - General Family Medicine 10/18/23 documented as of this encounter
--- OUTSIDE RECORDS SUMMARY | 2025-03-01 07:05 | XMS_ITS | Encounter Summary ---
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
--- OUTSIDE RECORDS SUMMARY | 2025-03-01 07:05 | XMS_ITS | Encounter Summary ---
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
--- OUTSIDE RECORDS SUMMARY | 2025-03-01 07:05 | XMS_ITS | Clinical Summary ---
Author Organization [facility] Address [address] [place] [address] Care Team Providers Care Bean Dumper Name Role Phone Gregorio Garcia MD Primary Care Provider [phone] Allergies Active Allergy Reactions Criticality Noted Date Comments Bee Venom Anaphylaxis High 02/09/2023 Honey Bee Venom Anaphylaxis High 10/17/2023 Other Reaction(s): Unknown Reaction Medications ondansetron ODT (Zofran-ODT) 4 MG disintegrating tabletIndications :Nausea and vomiting in ([facility]) TAKE 1 TABLET BY MOUTH EVERY 6 HOURS 120 tablet 025 Active ondansetron ODT (Zofran-ODT) 4 MG disintegrating tabletIndications :Nausea and vomiting in ([facility]) Take 1 tablet (4 mg) by mouth every 6 (six) hours 120 tablet 025 2024 Discontinued Progesterone 200 MG suppositoryIndica tions:History of miscarriage Insert 200 mg into the vagina at bedtime Insert suppository vaginally every night at bedtime until 12 weeks gestation 30 suppository 025 2024 Discontinued Encounters Date Type Department Care Team Description 02/27/2025 11:00 AM [place] [address] 02/27/2025 9:20 [place] [address] Juan Voss DO 12 weeks gestation of ([facility]); First trimester ([facility]); Threatened miscarriage in early ([facility]) 02/27/2025 Bamboo flowsheet [facility] [address] [place] [place] [address] Juan Voss DO 02/22/2025 Abstract [facility] [address] [place] [place] [address] Shanti Chicas MA 02/04/2025 Refill [facility] [address] [place] [address] Juan Voss DO Nausea and vomiting in ([facility]) 02/02/2025 Clinisync Result Encounter [facility] External Department Unsolicited Juan Voss DO 01/30/2025 Refill [facility] [address] [place] [place] [address] Shayna Munguia LPN History of miscarriage 01/26/2025 10:30 AM EDT Initial [facility] [address] [place] [place] [address] GA: [id number] 01/26/2025 10:00 AM EDT Ancillary Procedure [facility] [address] [place] [place] [address] Missed menses; Baseline heart rate range 100 to 120 beats per minute ([facility]) 01/10/2025 10:00 AM EDT Ancillary Procedure [facility] [address] [place] [place] [address] Missed menses 01/08/2025 Telephone [facility] [address] [place] [place] [address] Raysa Sheikh MA 01/08/2025 Telephone [facility] [address] [place] [place] [address] Raysa Sheikh MA 01/08/2025 Clinisync Result Encounter NOMS External Department Unsolicited Juan Voss, 01/06/2025 Clinisync Result Encounter NOMS External Department Unsolicited Juan Voss, DO 01/04/2025 Telephone [facility] [address] [place] [place] [address] Shayna Munguia LPN 01/02/2025 10:50 AM EDT Office Visit [facility] [address] [place] [place] [address] Juan Voss, DO Miscarriage ([facility]) 01/02/2025 Bamboo flowsheet [facility] [address] [place] [place] [address] Juan Voss, DO 12/18/2024 Telephone [facility] [address] [place] [place] [address] Juan Voss, DO 12/13/2024 Abstract [facility] [address] [place] [place] [address] Juan Voss, DO 12/08/2024 Telephone [facility] [address] [place] [place] [address] Shayna Munguia LPN 12/06/2024 Abstract [facility] [address] [place] [place] [address] Juan Voss, DO 12/05/2024 Telephone [facility] [address] [place] [place] [address] Shayna Munguia LPN from Last 3 Months Family History Medical [...] 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[place], [place]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 Last Filed Vital Signs Vital Sign Reading Time Taken Comments Blood Pressure 118/70 02/27/2025 9:34 AM EDT Pulse - - Temperature - - Respiratory Rate - - Oxygen Saturation - - Inhaled Oxygen Concentration - - Weight 64.9 kg (143 lb) 02/27/2025 9:34 AM EDT Height 162.6 cm (5' 4 ) 01/02/2025 11:11 AM EDT Body Mass Index 24.55 01/02/2025 11:11 AM EDT Plan of Treatment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 Procedures Procedure Name Priority Date/Time Associated Diagnosis Comments CULTURE, URINE, ROUTINE Routine 02/27/2025 4:15 PM EDT Missed menses US OB TRANSVAGINAL Routine 02/27/2025 11 :34 AM EDT Threatened miscarriage in early ([facility]) POCT URINALYSIS DIPSTICK Routine 02/27/2025 9:41 AM EDT 12 weeks gestation of ([facility]) First trimester ([facility]) HBSAG SCREEN Routine 02/02/2025 9:55 AM EDT RAPID PLASMA REAGIN, QUANT Routine 02/02/2025 9:55 AM EDT HIV AB/P24 AG WITH REFLEX Routine 02/02/2025 9:55 AM EDT HCV ANTIBODY RFX TO QUANT PCR Routine 02/02/2025 9:55 AM EDT ALL RUBELLA IGG AB Routine 02/02/2025 9: 55 AM EDT ALL TYPE AND SCREEN Routine 02/02/2025 9 :55 AM EDT ALL CBC WITH AUTO DIFF Routine 02/02/2025 9:55 AM EDT MLR HEMOGLOBIN A1C Routine 02/02/2025 9: 55 AM EDT BOX TEST Routine 02/02/2025 9:55 AM EDT TBH DRUG SCREEN RAPID (URINE) Routine 02/02/2025 9:50 AM EDT POCT URINALYSIS DIPSTICK Routine 01/26/2025 11:31 AM EDT Missed menses POCT , URINE Routine 01/26/2025 11:31 AM EDT Missed menses US OB TRANSVAGINAL Routine 01/26/2025 10 :32 AM EDT Baseline heart rate range 100 to 120 beats per minute ([facility]) US OB TRANSVAGINAL High Priority 01/10/2025 10 :41 AM EDT Missed menses [facility] PREG QUANT HCG Routine 01/08/2025 8: 13 AM EDT TBH PREG QUANT HCG Routine 01/06/2025 8: 32 AM EDT POCT URINALYSIS DIPSTICK Routine 01/02/2025 11:21 AM EDT Miscarriage ([facility]) from Last 3 Months Results * Urine culture (02/27/2025 4:15 PM EDT) Urine Urine specimen obtained by clean catch procedure / Unknown us Juan Bipin DO LAB MICROBIOLOGY - GENERAL ORDER MODE Final Result EXTERNAL LAB * US OB transvaginal (02/27/2025 11:34 AM EDT) Only the most recent of3 resultswithin the time period is included. Anatomical Region Laterality Modality Body Ultrasound 02/27/2025 [...] dipstick manually resulted (02/27/2025 9:41 AM EDT) Only the most recent of3 resultswithin the time period is included. Color, UA Yellow Clarity, UA Clear Glucose, [...] Positive Urine 02/27/2025 9:41 AM EDT Juan Bipin DO POINT OF CARE TEST ENTER/EDIT OR DERABLES Final Result * BOX TEST (02/02/2025 9:55 AM EDT) BOX TEST SENT OUT [facility] BOX1 [facility] BOX2 02/02/25 [facility] 02/02/2025 9:55 AM EDT 02/02/2025 10:05 AM EDT Narrative [facility] - 02/02/2025 10:07 AM EDT Juan Bipin DO LAB BLOOD ORDERABLES Final Resul t [facility] * HBSAG SCREEN (02/02/2025 9:55 AM EDT) HBSAG SCREEN Negative Negative [facility] Comment: Performed at: [address] [id number] Rotary Furnace Operator: Kip Giles PhD, Phone: [phone] 02/02/2025 9:55 AM EDT 02/02/2025 10:05 AM EDT Narrative [facility] - 02/03/2025 11:08 AM EDT us Juan Bipin DO LAB BLOOD ORDERABLES Final Resul t Performing Organization Address City/[facility]/ZIP Co de Phone Number [facility] * RAPID PLASMA REAGIN, QUANT (02/02/2025 9:55 AM EDT) RAPID PLASMA REAGIN, QUANT Non Reactive NonRea<1: 1 titer [facility] Comment: Please Note: This test does not meet current guidelines for screening and diagnosis of syphilis. This test is intended for following treatment response in patients being treated for syphilis infection. To screen for syphilis infection, a reflex cascade that includes both RPR and a treponema-specific assay should be utilized, such as Treponema pallidum (Syphilis) Screening [place] (387311) or Rapid Plasma Reagin (RPR) Test With Reflex to Quantitative RPR and Confirmatory Treponema pallidum Antibodies ([id number]). Performed at: [facility] [id number] Rotary Furnace Operator: Kip Giles PhD, Phone: [phone] 02/02/2025 9:55 AM EDT 02/02/2025 10:05 AM EDT Narrative [facility] - 02/03/2025 11:08 AM EDT us Juan Bipin DO LAB BLOOD ORDERABLES Final Resul t Performing Organization Address City/[facility] Co de Phone Number [facility] * HIV AB/P24 AG WITH REFLEX (02/02/2025 9:55 AM EDT) HIV AB/P24 AG SCREEN Non Reactive Non Reactive [facility] Comment: HIV-1/HIV-2 antibodies and HIV-1 p24 antigen were NOT detected. There is no laboratory evidence of HIV infection. HIV Negative Performed at: [facility] [id number] Rotary Furnace Operator: Kip Giles PhD, Phone: [phone] 02/02/2025 9:55 AM EDT 02/02/2025 10:05 AM EDT Narrative [facility] - 02/03/2025 5:07 AM EDT Juan Bipin DO LAB BLOOD ORDERABLES Final Resul t Performing Organization Address [facility] Co de Phone Number [facility] * HCV ANTIBODY RFX TO QUANT PCR (02/02/2025 9:55 AM EDT) HCV AB Non Reactive Non Reactive TB INTERPRETATION: Comment . TB Comment: Not infected with HCV unless early or acute infection is suspected (which may be delayed in an immunocompromised individual), or other evidence exists to indicate HCV infection. 02/02/2025 9:55 AM EDT 02/02/2025 10:05 AM EDT Narrative [facility] - 02/03/2025 5:07 AM EDT Juan Bipin DO LAB BLOOD ORDERABLES Final Resul t Performing Organization Address [facility] de Phone Number [facility] * MLR HEMOGLOBIN A1C (02/02/2025 9:55 AM EDT) GLYCOHEMOGLOBIN A1C 5.3 4.5 - 6.2 % [facility] Comment: ADA RECOMMENDED LIMIT 4.0 - 6.0 ADA THERAPEUTIC TARGET < 7.0 ACTION SUGGESTED > 7.0 ESTIMATED AVERAGE GLUCOSE 105 mg/dL TB 02/02/2025 9:55 AM EDT 02/02/2025 10:05 AM EDT Narrative [facility] - 02/02/2025 10:22 AM EDT Juan Bipin DO CLINISYNC Final Result Performing Organization Address [facility] Co de Phone Number [facility] * ALL TYPE AND SCREEN (02/02/2025 9:55 AM EDT) BLOOD TYPE A Positive [facility] ANTIBODY SCREEN NEGATIVE TB 02/02/2025 9:55 AM EDT 02/02/2025 10:05 AM EDT Narrative [facility] - 02/02/2025 11:55 AM EDT [facility] , Juan Bipin DO CLINISYNC Final Result [facility] * ALL RUBELLA IGG AB (02/02/2025 9:55 AM EDT) [facility] RUBELLA ANTIBODIES, IGG 2.16 Immune >0.99 index [facility] Comment: Non-immune <0.90 Equivocal 0.90 - 0.99 Immune >0.99 Performed at: - [facility] [id number] Rotary Furnace Operator: Kip Giles PhD, Phone: [phone] 02/02/2025 9:55 AM EDT 02/02/2025 10:05 AM EDT Narrative [facility] - 02/03/2025 5:07 AM EDT Juan Bipin DO CLINISYNC Final Result Performing Organization Address City/[facility]/ZIP Co de Phone Number [facility] * (ABNORMAL) ALL CBC WITH AUTO DIFF (02/02/2025 9:55 AM EDT) [facility] TB WBC 6.9 4.0 - 11.0 10 3/uL TBH TBH RBC 4.70 4.20 - 5.40 10 6/uL TBH TBH HGB 14.6 12.0 - 16.0 g/dL TB TB HCT 41.6 36.0 - 48.0 % TB TBH MCV 88.5 81.0 - 99.0 fL TBH TBH MCH 31.1 26.7 - 34.0 pg TBH TB MCHC 35.1 29.9 - 35.2 g/dL TBH TB RDW 12.8 11.0 - 15.0 % TBH TBH PLT 256 150 - 450 10 3/uL TBH TBH MPV 11.7 9.5 - 13.5 fL TBH NEUTROPHILS PERCENT AUTO 64.9 43.0 - 75.0 % TBH LYMPHOCYTES PERCENT AUTO 28.9 20.5 - 60.0 % TBH MONOCYTES PERCENT AUTO 5.1 1.7 - 12.0 % TBH TBH EO % 0.4(L) 0.9 - 7.0 % TBH BASOPHILS PERCENT AUTO 0.6 0.2 - 2.0 % TBH IMMATURE GRANULOCYTES PCT AUTO 0.1 0.0 - 0.5 % TBH NEUTROPHILS ABSOLUTE AUTO 4.5 1.4 - 6.5 10 3/uL TBH LYMPHOCYTES ABSOLUTE AUTO 2.0 1.2 - 3.8 10 3/uL TBH MONOCYTES ABSOLUTE AUTO 0.4 0.3 - 0.8 10 3/uL TBH TBH EO # 0.0 0.0 - 0.7 10 3/uL TBH BASOPHILS ABSOLUTE AUTO 0.0 0.0 - 0.1 10 3/uL TBH IMMATURE GRANULOCYTES ABS AUTO 0.01 0.00 - 0.03 10 3/uL [facility] 02/02/2025 9:55 AM EDT 02/02/2025 10:05 AM EDT Narrative [facility] - 02/02/2025 10:23 AM EDT Juan Voss DO CLINISYNC Final Result [facility] * TB DRUG SCREEN RAPID (URINE) (02/02/2025 9:50 AM EDT) Pathologist [facility] CANNABINOID SCREEN URINE NEGATIVE NEGATIVE TBH PHENCYCLIDINE SCREEN URINE NEGATIVE NEGATIVE TBH COCAINE SCREEN URINE NEGATIVE NEGATIVE TBH METHAMPHETAMINES SCREEN URINE NEGATIVE NEGATIVE TBH OPIATE SCREEN URINE NEGATIVE NEGATIVE TBH AMPHETAMINE SCREEN URINE NEGATIVE NEGATIVE TBH BENZODIAZEPINES SCREEN URINE NEGATIVE NEGATIVE TBH TRICYCLIC ANTIDEPRESSANT URINE NEGATIVE NEGATIVE TBH METHADONE SCREEN URINE NEGATIVE NEGATIVE TBH BARBITURATES SCREEN URINE NEGATIVE NEGATIVE TBH OXYCODONE SCREEN URINE NEGATIVE NEGATIVE TBH BUPRENORPHINE SCREEN URINE NEGATIVE NEGATIVE TBH Comment: DRUG CLASS TEST SYSTEM CUT-OFF CONCENTRATIONS ARE FOLLOWS: AMP (Amphetamine): 500 ng/mL BAR (Barbiturates): 200 ng/mL BZO (Benzodiazepines): 150 ng/mL BUP (Buprenorphine): 10 ng/mL CARLEEN (Cocaine): 150 ng/mL mAMP (Methamphetamine): 500 ng/mL MTD (Methadone): 200 ng/mL OPI (Opiates): 100 ng/mL OXY (Oxycodone): 100 ng/mL PCP (Phencyclidine): 25 ng/mL THC (Cannabinoids): 50 ng/mL TCA (Trycyclic Antidepressants): 300 ng/mL 02/02/2025 9:50 AM EDT 02/02/2025 10:05 AM EDT Narrative [facility] - 02/02/2025 10:37 AM EDT Juan Bipin DO CLINISYNC Final Result Performing Organization Address [facility] Co de Phone Number [facility] * (ABNORMAL) POCT , urine manually resulted (01/26/2025 11:31 AM EDT) Preg Test, Ur Positive Negative Urine 01/26/2025 11:3 1 AM EDT Juan Bipin DO POINT OF CARE TEST ENTER/EDIT OR DERABLES Final Result * TBH PREG QUANT HCG (01/08/2025 8:13 AM EDT) Only the most recent of2 resultswithin the time period is included. HCG QUANTITATIVE 14,415 mIU/mL [facility] Comment: 5-50 0.2-1 WEEK 50-500 1-2 WEEKS 100-5,000 2-3 WEEKS 500-10,000 3-4 WEEKS 1,000-50,000 4-5 WEEKS 10,000-100,000 5-6 WEEKS 15,000-200,000 6-8 WEEKS 10,000-100,000 2-3 MONTHS 01/08/2025 8:13 AM EDT 01/08/2025 8:15 AM EDT Narrative [facility] - 01/08/2025 9:14 AM EDT Juan Bipin DO CLINISYNC Final Result Performing Organization Address [facility] Co de Phone Number [facility] from Last 3 Months Insurance BCBS Care Teams Bean Dumper Relationship Specialty Start Date End Date Gregorio Garcia MD [address] [place] [phone] PCP - General Family Medicine 10/18/23
--- OUTSIDE RECORDS SUMMARY | 2025-03-01 07:05 | XMS_ITS | Patient Health Record ---
Author Organization [facility] Address [address] [place] [address] Care Team Providers Care Batter Depositor Name Role Phone Gregorio Garcia Primary Care Provider Dane Chowdhury [facility] [phone] Allergies Allergen (clinical drug ingredient) Drug/Non Drug Allergy documented on EMR Reaction Allergy Type Onset Date Status bee sting (uncoded) anaphylaxis Allergy Active Results Component Value Reference Range Notes SCC- WRIST 3 VIEW LEFT [id number] Reviewed date:07/25/2024 03:44:15 PM Interpretation: Performing Lab: [...] 06/26/2024 Encounters Encounter Location Date Provider Diagnosis [facility] [address] [place] [address] [place] [address] 06/26/2024 Dane Cordova Pain in right wrist [...] Insured Coverage Start Date Coverage End Date [facility] [address] [address] [place] [address] [id number] ROBERTO CANALES Spouse - patient is the spouse of the insured Medical (General) History Medical History History ICD Code Anxiety
--- OUTSIDE RECORDS SUMMARY | 2025-03-01 07:05 | XMS_ITS ---
Author Organization [facility] Source Produ ction (ClinicalSummary Clone) Address Unknown Care Team Providers Care Chicken Boner Name Role Phone Unavailable Primary Care Physician Unavailab le Results * [UNITY] ANEUPLOIDY NIPT Performed by: IncreaseCard Component Value Range Date Fraction 5.4% 02/10/2025 04 :06 am UT Rh(D) NIPT RhD DETECTED 02/10/2025 04:0 6 am UT Sex Chromosome Aneuploidy NOT DETECTED 04:06 am UT Monosomy X LOW RISK <1 in 10,000 2024 04:06 am UTC Trisomy 13 LOW RISK <1 in 10,000 2024 04:06 am UTC Trisomy 18 LOW RISK <1 in 10,000 2024 04:06 am UTC Trisomy 21 LOW RISK <1 in 10,000 2024 04:06 am UT Sex MALE 02/10/2025 04:0 6 am UTC Gestation KLEIN 02/11/20 04:06 am UT For detailed report, see PDF See PDF 02/10/2025 04:06 am UTC 02/10/2025 04:0 6 am UT Social History Observation Value Start Date End Date
--- OUTSIDE RECORDS SUMMARY | 2025-03-01 07:05 | XMS_ITS | Encounter Summary ---
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
--- OUTSIDE RECORDS SUMMARY | 2025-03-01 07:05 | XMS_ITS | Encounter Summary ---
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
--- OUTSIDE RECORDS SUMMARY | 2025-03-01 07:05 | XMS_ITS | Encounter Summary ---
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
--- OUTSIDE RECORDS SUMMARY | 2025-03-01 07:05 | XMS_ITS | Encounter Summary ---
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
--- OUTSIDE RECORDS SUMMARY | 2025-03-01 07:06 | XMS_ITS | Patient Health Record ---
Author Organization [facility] in [place] Address [address] [place] [address] Care Team Providers Care Manufacturing Clerk Name Role Phone Jai Childs Primary Care Provider Allergies No Known Allergies Results Component Value Reference Range Notes CBC AUTO DIFF Reviewed date:08/28/2024 07:18:48 PM Interpretation: Performing Lab: Notes/Report: [facility] , White Blood Count 5.1 4.0-11.0 10 [...] 3/uL Performing Lab: see note ML - [facility] FREE T4 Reviewed date:08/28/2024 07:18:48 PM Interpretation: Performing Lab: Notes/Report: [facility] Free T4 0.97 0.76-1.46 ng/dL Performing Lab: see note ML - [facility] GLYCOHEMOGLOBIN A1C Reviewed date:08/28/2024 07:18:48 PM Interpretation: Performing Lab: Notes/Report: [facility] , Glycohemoglobin A1C 5.5 4.5-6.2 % ADA RECOMMENDED LIMIT 4.0 - 6.0 ADA THERAPEUTIC TARGET < 7.0 ACTION SUGGESTED > 7.0 Estimated Average Glucose 111 Performing Lab: see note ML - [facility] PREG QUANT HCG Reviewed date:08/28/2024 07:18:48 PM Interpretation: Performing Lab: Notes/Report: [facility] HCG Quantitative <1 5-50 0.2-1 WEEK 50-500 1-2 WEEKS 100-5,000 2-3 WEEKS 500-10,000 3-4 WEEKS 1,000-50,000 4-5 WEEKS 10,000-100,000 5-6 WEEKS 15,000-200,000 6-8 WEEKS 10,000-100,000 2-3 MONTHS Performing Lab: see note - [facility] PROF 14(COMP METB) Reviewed date:08/28/2024 07:18:48 PM Interpretation: Performing Lab: Notes/Report: [facility] , Sodium 142 136-145 mmol/L Potassium 3.9 [...] 1.2 Performing Lab: see note ML - [facility] LB T4 Reviewed date:08/28/2024 07:18:48 PM Interpretation: Performing Lab: Notes/Report: [facility] , T4 Thyroxine 8.40 4.80-13.90 ug/dL Performing Lab: see note ML - [facility] LB TSH Reviewed date:08/28/2024 07:18:48 PM Interpretation: Performing Lab: Notes/Report: [facility] , Thyroid Stimulating Hormone 1.097 0.358-3.740 uIU/mL Performing Lab: see note ML - [facility] LB Progesterone Reviewed date:08/29/2024 12:51:42 PM Interpretation: Performing Lab: Notes/Report: [facility] , Progesterone 15.2 . ng/mL Follicular phase 0.1 - 0.9 Luteal phase 1.8 - 23.9 Ovulation phase 0.1 - 12.0 First trimester 11.0 - 44.3 Second trimester 25.4 - 83.3 Third trimester 58.7 - 214.0 Postmenopausal 0.0 - 0.1 Performed at: [facility] [address] [id number] Project Manager Entertainment And Media: Kip Giles PhD, Phone: [phone] Performing Lab: see note - [facility] LB DHEA, Serum Reviewed date:09/02/2024 02:22:25 PM Interpretation: Performing Lab: Notes/Report: [facility] , DHEA, Serum 179 31-701 ng/dL This test was developed and its performance characteristics determined by [facility]. It has not been cleared or approved by the Food and Drug Administration. Performed at: [address] [id number] Project Manager Entertainment And Media: Betina Lindsey MD, Phone: [phone] Performing Lab: see note [facility] Luteinizing Hormone(LH) Reviewed date:08/29/2024 12:51:42 PM Interpretation: Performing Lab: Notes/Report: [facility] , Luteinizing Hormone(LH) 8.0 . mIU/mL Adult Female Range Follicular phase 2.4 - 12.6 Ovulation phase 14.0 - 95.6 Luteal phase 1.0 - 11.4 Postmenopausal 7.7 - 58.5 Performing Lab: see note [facility] LB FSH Reviewed date:08/29/2024 12:51:42 PM Interpretation: Performing Lab: Notes/Report: [facility] , FSH 3.9 . mIU/mL Adult Female Range Follicular phase 3.5 - 12.5 Ovulation phase 4.7 - 21.5 Luteal phase 1.7 - 7.7 Postmenopausal 25.8 - 134.8 Performing Lab: see note [facility] DHEA-Sulfate Reviewed date:08/29/2024 12:51:42 PM Interpretation: Performing Lab: Notes/Report: [facility] , DHEA-Sulfate 144.0 84.8-378.0 ug/dL Performing Lab: see note [facility] PREG QUANT HCG Reviewed date:11/24/2024 01:09:48 PM Interpretation: Performing Lab: Notes/Report: [facility] , HCG Quantitative 292 5-50 0.2-1 WEEK 50-500 1-2 WEEKS 100-5,000 2-3 WEEKS 500-10,000 3-4 WEEKS 1,000-50,000 4-5 WEEKS 10,000-100,000 5-6 WEEKS 15,000-200,000 6-8 WEEKS 10,000-100,000 2-3 MONTHS Performing Lab: see note - [facility] CBC AUTO DIFF Reviewed date:11/26/2024 06:23:41 PM Interpretation: Performing Lab: Notes/Report: [facility] , White Blood Count 8.2 4.0-11.0 10 [...] Performing Lab: see note ML - [facility] LB PREG QUANT HCG Reviewed date:11/26/2024 06:23:41 PM Interpretation: Performing Lab: Notes/Report: [facility] , HCG Quantitative 275 5-50 0.2-1 WEEK 50-500 1-2 WEEKS 100-5,000 2-3 WEEKS 500-10,000 3-4 WEEKS 1,000-50,000 4-5 WEEKS 10,000-100,000 5-6 WEEKS 15,000-200,000 6-8 WEEKS 10,000-100,000 2-3 MONTHS Performing Lab: see note ML - [facility] PROF CHEM 8 (BAS METB) Reviewed date:11/26/2024 06:23:41 PM Interpretation: Performing Lab: Notes/Report: [facility] , Sodium 138 136-145 mmol/L Potassium 3.7 [...] mg/dL Performing Lab: see note ML - [facility] LB PREG QUANT HCG Reviewed date:11/27/2024 02:21:22 PM Interpretation: Performing Lab: Notes/Report: [facility] , HCG Quantitative 114 5-50 0.2-1 WEEK 50-500 1-2 WEEKS 100-5,000 2-3 WEEKS 500-10,000 3-4 WEEKS 1,000-50,000 4-5 WEEKS 10,000-100,000 5-6 WEEKS 15,000-200,000 6-8 WEEKS 10,000-100,000 2-3 MONTHS Performing Lab: see note ML - [facility] LB PREG QUANT HCG Reviewed date:01/08/2025 08:16:44 PM Interpretation: Performing Lab: Notes/Report: [facility] , HCG Quantitative 08949 5-50 0.2-1 WEEK 50-500 1-2 WEEKS 100-5,000 2-3 WEEKS 500-10,000 3-4 WEEKS 1,000-50,000 4-5 WEEKS 10,000-100,000 5-6 WEEKS 15,000-200,000 6-8 WEEKS 10,000-100,000 2-3 MONTHS Performing Lab: see note ML - [facility] LB DRUG SCREEN RAPID (URINE) Reviewed date:02/03/2025 03:41:23 PM Interpretation: Performing Lab: Notes/Report: [facility] , Cannabinoid Screen Urine NEGATIVE NEGATIVE Phencyclidine Screen Urine NEGATIVE NEGATIVE Cocaine Screen Urine NEGATIVE NEGATIVE Methamphetamines Screen Urine NEGATIVE NEGATIVE Opiate Screen Urine NEGATIVE NEGATIVE Amphetamine Screen Urine NEGATIVE NEGATIVE Benzodiazepines Screen Urine NEGATIVE NEGATIVE Tricyclic Antidepressant Urine NEGATIVE NEGATIVE Methadone Screen Urine NEGATIVE NEGATIVE Barbiturates Screen Urine NEGATIVE NEGATIVE Oxycodone Screen Urine NEGATIVE NEGATIVE Buprenorphine Screen Urine NEGATIVE NEGATIVE DRUG CLASS TEST SYSTEM CUT-OFF CONCENTRATIONS ARE FOLLOWS: AMP (Amphetamine): 500 ng/mL BAR (Barbiturates): 200 ng/mL BZO (Benzodiazepines): 150 ng/mL BUP (Buprenorphine): 10 ng/mL CARLEEN (Cocaine): 150 ng/mL mAMP (Methamphetamine): 500 ng/mL MTD (Methadone): 200 ng/mL OPI (Opiates): 100 ng/mL OXY (Oxycodone): 100 ng/mL PCP (Phencyclidine): 25 ng/mL THC (Cannabinoids): 50 ng/mL TCA (Trycyclic Antidepressants): 300 ng/mL Performing Lab: see note [facility] LB RUBELLA AB IGG Reviewed date:02/03/2025 03:41:23 PM Interpretation: Performing Lab: Notes/Report: [facility] , Rubella Antibodies, IgG 2.16 Immune > 0.99 index Non-immune <0.90 Equivocal 0.90 - 0.99 Immune >0.99 Performed at: [address] [id number] Project Manager Entertainment [employer] Media: Kip Giles PhD, Phone: [phone] Performing Lab: see note [facility] HIV Ab/p24 Ag with Reflex Reviewed date:02/03/2025 03:41:23 PM Interpretation: Performing Lab: Notes/Report: [facility] , HIV Ab/p24 Ag Screen Non Reactive Non Reactive HIV-1/HIV-2 antibodies and HIV-1 p24 antigen were NOT detected. There is no laboratory evidence of HIV infection. HIV Negative Performed at: [address] [id number] Project Manager [employer]: Kip Giles PhD, Phone: [phone] Performing Lab: see note [facility] Rapid Plasma Reagin, Quant Reviewed date:02/03/2025 03:41:23 PM Interpretation: Performing Lab: Notes/Report: [facility] , Rapid Plasma Reagin, Quant Non Reactive NonRea<1:1 titer Please Note: This test does not meet current guidelines for screening and diagnosis of syphilis. This test is intended for following treatment response in patients being treated for syphilis infection. To screen for syphilis infection, a reflex cascade that includes both RPR and a treponema-specific assay should be utilized, such as Treponema pallidum (Syphilis) Screening Lagrange (602445) or Rapid Plasma Reagin (RPR) Test With Reflex to Quantitative RPR and Confirmatory Treponema pallidum Antibodies (487608). Performed at: [address] [id number] Project Manager Entertainment And Media: Kip Giles PhD, Phone: [phone] Performing Lab: see note - [facility] LB HCV Antibody RFX to Quant PC R Reviewed date:02/03/2025 03:41:23 PM Interpretation: Performing Lab: Notes/Report: [facility] , HCV Ab Non Reactive Non Reactive Interpretation: Comment . Not infected with HCV unless early or acute infection is suspected (which may be delayed in an immunocompromised individual), or other evidence exists to indicate HCV infection. Performing Lab: see note - [facility] LB HBsAg Screen Reviewed date:02/03/2025 03:41:23 PM Interpretation: Performing Lab: Notes/Report: [facility] , HBsAg Screen Negative Negative Performed at: [address] [id number] Project Manager Entertainment And Media: Kip Giles PhD, Phone: [phone] Performing Lab: see note [facility] LB Urine Culture, Routine Reviewed date:02/04/2025 02:40:23 PM Interpretation: Performing Lab: Notes/Report: [facility] , Urine Culture, Routine See Below For Report Urine Culture, Routine Urine Culture, Routine Mixed urogenital tariq Urine Culture, Routine Urine Culture, Routine 10,000-25,000 col melissa forming units per mL Urine Culture, Routine Urine Culture, Routine Performed at: [facility] Urine Culture, Routine Urine Culture, Routine [address] [place] [phone] Urine Culture, Routine Urine Culture, Routine Project Manager Entertainment And Media: Luis Alfredo Giles PhD, Phone: [phone] Urine Culture, Routine Performing Lab: see note - [facility] LB SEE REPORT - Mortgage Collector Id information not found for OBX-specific list of first job ideas legend [place] Box Reviewed date:02/03/2025 03:41:23 PM Interpretation: Performing Lab: Notes/Report: [facility] , BOX Test Sent Out YES BOX Test Reference Lab UNITY BOX Test Date Sent 02/02/25 Performing Lab: see note ML - [facility] LB Type and Screen Reviewed date:02/03/2025 03:41:23 PM Interpretation: Performing Lab: Notes/Report: [facility] , Blood Type A Positive Antibody Screen NEGATIVE GLYCOHEMOGLOBIN A1C Reviewed date:02/03/2025 03:41:23 PM Interpretation: Performing Lab: Notes/Report: [facility] , Glycohemoglobin A1C 5.3 4.5-6.2 % ADA RECOMMENDED LIMIT 4.0 - 6.0 ADA THERAPEUTIC TARGET < 7.0 ACTION SUGGESTED > 7.0 Estimated Average Glucose 105 Performing Lab: see note ML - [facility] LB CBC AUTO DIFF Reviewed date:02/03/2025 03:41:23 PM Interpretation: Performing Lab: Notes/Report: [facility] , White Blood Count 6.9 4.0-11.0 10 3/uL Red Blood Count 4.70 4.20-5.40 10 6/uL Hemoglobin 14.6 12.0-16.0 g/dL Hematocrit 41.6 36.0-48.0 % Mean Corpuscular Volume 88.5 81.0-99.0 fL Mean Corpuscular Hemoglobin 31.1 26.7-34.0 pg Mean Corpuscular HGB Conc 35.1 29.9-35.2 g/dL Red Cell Distribution Width 12.8 11.0-15.0 % Platelet Count 256 150-450 10 3/uL Mean Platelet Volume 11.7 9.5-13.5 fL Neutrophils Percent Auto 64.9 43.0-75.0 % Lymphocytes Percent Auto 28.9 20.5-60.0 % Monocytes Percent Auto 5.1 1.7-12.0 % Eosinophils Percent Auto 0.4 0.9-7.0 % Basophils Percent Auto 0.6 0.2-2.0 % Immature Granulocytes Pct Auto 0.1 0.0-0.5 % Neutrophils Absolute Auto 4.5 1.4-6.5 10 3/uL Lymphocytes Absolute Auto 2.0 1.2-3.8 10 3/uL Monocytes Absolute Auto 0.4 0.3-0.8 10 3/uL Eosinophils Absolute Auto 0.0 0.0-0.7 10 3/uL Basophils Absolute Auto 0.0 0.0-0.1 10 3/uL Immature Granulocytes Abs Auto 0.01 0.00-0.03 10 3/uL Performing Lab: see note ML - [facility] LB PREG QUANT HCG Reviewed date:01/06/2025 01:42:13 PM Interpretation: Performing Lab: Notes/Report: [facility] , HCG Quantitative 91674 5-50 0.2-1 WEEK 50-500 1-2 WEEKS 100-5,000 2-3 WEEKS 500-10,000 3-4 WEEKS 1,000-50,000 4-5 WEEKS 10,000-100,000 5-6 WEEKS 15,000-200,000 6-8 WEEKS 10,000-100,000 2-3 MONTHS Performing Lab: see note ML - [facility] LB US OB transvaginal Reviewed date:11/22/2024 08:00:41 PM Interpretation: Performing Lab: Notes/Report: Source Facility: [place] [address] Ultrasound Report Signed Patient: YVONNE BAKER MR#: [id number] : 1995 Acct:[id number] Age/Sex: 29 / F ADM Date: 11/22/24 Loc: US Attending Dr: Dejan Voss D.O. Ordering Physician: Dejan Voss D.O. Date of Service: 11/22/24 Procedure(s): US OB transvaginal Accession Number(s): [id number] cc: Dejan Voss D.O.; Toño Childs M.D. [place] [address] Patient Name: YVONNE BAKER MRN: [id number] date: 1995 Sex: F Assigned Patient Location: US Current Patient Location: US Accession/Order Number: [id number] Exam Date: 11/22/2024 16:44 Report Date: 11/22/2024 [...] Jr., D.O. 11/22/2024 4:47 PM Dictation Location: [place] [address] Electronically authenticated by: [id number] Y Date: 11/22/2024 16:47 Dictated By: Brent Jonas M.D. Signed By: 11/22/24 165 DD/ 164 TD/TT: Chiropractor Sole Practitioner: [place] [address] Ultrasound Report Signed Patient: HERON BAKER MR#: [id number] : 1995 Acct:[id number] Age/Sex: 29 / F ADM Date: 11/22/24 Loc: US Attending Dr: Dejan Voss D.O. Ordering Physician: Dejan Voss D.O. Date of Service: 11/22/24 Procedure(s): US OB transvaginal Accession Number(s): [id number] cc: Dejan Voss D.O. ; Toño Childs M.D. The [address] [address] Patient Name: YVONNE BAKER MRN: [id number] date: 1995 Sex: F Assigned Patient Location: US Current Patient Location: US Accession/Order Number: [id number] Exam Date: 11/22/2024 16:44 Report Date: 11/22/2024 [...] Jr., D.O. 11/22/2024 4:47 PM Dictation Location: [place] [address] Electronically authenticated by: [id number] Y Date: 11/22/2024 16:47 Dictated By: Brent Jonas M.D. Signed By: 11/22/247 DD/ 46 TD/TT: Chiropractor Sole Practitioner: PREG QUANT HCG Reviewed date:11/22/2024 08:00:41 PM Interpretation: Performing Lab: Notes/Report: [facility] , HCG Quantitative 264 5-50 0.2-1 WEEK 50-500 1-2 WEEKS 100-5,000 2-3 WEEKS 500-10,000 3-4 WEEKS 1,000-50,000 4-5 WEEKS 10,000-100,000 5-6 WEEKS 15,000-200,000 6-8 WEEKS 10,000-100,000 2-3 MONTHS Performing Lab: see note ML - [facility] LB LIPID PROFILE Reviewed date:08/28/2024 07:18:48 PM Interpretation: Performing Lab: Notes/Report: [facility] , Triglycerides 40 <=150 mg/dL Cholesterol 152 <=200 mg/dL HDL Cholesterol 73 40-60 mg/dL > or =60 mg/dl - LOW CARDIOVASCULAR RISK <40 mg/dl - HIGH CARDIOVASCULAR RISK LDL Cholesterol Calculated 71.0 <100 mg/dl OPTIMAL 100-129 mg/dl NEAR OR ABOVE OPTIMAL 130-159 mg/dl BORDERLINE HIGH 160-189 mg/dl HIGH >190 mg/dl VERY HIGH VLDL CHOLESTEROL 8.0 Chol HDL Ratio 2.1 3.3 - 4.4 LOW RISK 4.4 - 7.1 AVERAGE RISK 7.1 - 11.0 MODERATE RISK >11.0 HIGH RISK Performing Lab: see note ML - [facility] LB FREE T3 Reviewed date:08/28/2024 07:18:48 PM Interpretation: Performing Lab: Notes/Report: [facility] , Free T3 2.75 2.18-3.98 pg/mL Performing Lab: see note ML - [facility] LB XR wrist SARAHY min 2v Reviewed date:06/26/2024 12:46:00 PM Interpretation: Performing Lab: Notes/Report: Source Facility: [place] [address] [place] [address] XRay Report Signed Patient: YVONNE BAKER MR#: [id number] : 1995 Acct:[id number] Age/Sex: 29 / F ADM Date: 06/25/24 Loc: RAD Attending Dr: Toño Childs M.D. Ordering Physician: Toño Childs M.D. Date of Service: 06/25/24 Procedure(s): XR wrist SARAHY min 2v Accession Number(s): [id number] cc: Toño Childs M.D. [place] [id number] Patient Name: YVONNE BAKER MRN: [id number] date: 1995 Sex: F Assigned Patient Location: [facility] Current Patient Location: Accession/Order Number: [id number] Exam Date: 06/25/2024 14:40 Report Date: 06/26/2024 [...] M.D. Signed By: 06/26/24453 DD/ 0 TD/TT: Chiropractor Sole Practitioner: [place] [address] XRay Report Signed Patient: HERON BAKER MR#: [id number] : 1995 Acct:[id number] Age/Sex: 29 / F ADM Date: 06/25/24 Loc: [facility] Attending Dr: Tru Childs M.D. Ordering Physician: Toño Childs M.D. Date of Service: 06/25/24 Procedure(s): XR wri st SARAHY min 2v Accession Number(s): [id number] cc: Toño Childs M.D. [place] [id number] Patient Name: YVONNE BAKER MRN: [id number] date: 1995 Sex: F Assigned Patient Location: [facility] Current Patient Location: Accession/Order Number: [id number] Exam Date: 14:40 Report Date: 06/26/2024 04:51 [...] M.D. Signed By: 06/26/24453 DD/ 0 TD/TT: Chiropractor Sole Practitioner: Reason For Referral Diagnosis 1 Lump of wrist (R22.3 0) Referral Organization [facility] Referring Provider First Name Jai Referring Provider Last Name Jose [facility] Provider [facility]erred Provider Dane Crodova Referred Provider Specialty Orthopedic S urgery Referral Priority Routine Medications Medication SIG (Take, Route, Fr equency, Duration) Notes Start Date End Date Status Azithromycin 250 MG 2 tabs today then 1 tab Orally daily for 5 days 11/28/2024 Active ALPRAZolam 0.25 MG 1-2 tabs Orally prn for 7 days F41.9 - recommend trying two at hs 02/27/2025 Active Social History Tobacco Use: Social History [...] W/U Status Risk Notes Problem Well adult (049491209) Well adult (Z00.00) Active confirmed Problem Ganglion cyst (38679514) Ganglion cyst (M67.40) Active confirmed Vital Signs Blood pressure diastolic 82 mm Hg 05/24/2024 Height 64 in 05/24/2024 Blood pressure systolic 130 mm Hg 05/24/2024 Weight 145 lbs 05/24/2024 BMI 24.89 kg/m2 05/24/2024 Encounters Encounter Location Date Provider Diagnosis [facility] [address] [facility] [place] [address] 05/24/2024 Jai Childs Lump of wrist R22.30 [facility] [address] [facility] [place] [address] 06/26/2024 Jai Childs [facility] [address] [facility] [place] [address] 08/28/2024 Jai Childs [facility] [address] [facility] [place] [address] 10/30/2024 Jai Childs Family history of thyroid disease Z83.49 [facility] [address] [facility] [place] [address] 11/16/2024 Jai Childs [facility] [address] [place] [address] 11/28/2024 Jai Childs [facility] [address] [place] [address] 02/27/2025 Jai Childs [facility] [address] [facility] [place] [address] 05/24/2024 Jai Childs Well adult Z00.00 Assessments [...] Insured Coverage Start Date Coverage End Date [facility] [address] [address] [place] [address] [id number] Soniya Baker Spouse - patient is the spouse of the insured Medical (General) History Surgical History Surgery Date(Month/Year) Appendectomy Tonsillectomy
--- OUTSIDE RECORDS SUMMARY | 2025-03-01 07:06 | XMS_ITS | Encounter Summary ---
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
--- OUTSIDE RECORDS SUMMARY | 2025-03-01 07:06 | XMS_ITS | Encounter Summary ---
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
--- OUTSIDE RECORDS SUMMARY | 2025-03-01 07:06 | XMS_ITS | Encounter Summary ---
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 Ordering Physician: Dejan Voss D.O. Date of Service: 04/10/23 Procedure(s): US OB growth Accession Number(s): [id number] cc: Dejan Voss D.O.; Physician,Non-Staff [place] [address] Patient Name: YVONNE BAKER MRN: [id number] date: 1995 Sex: F Assigned Patient Location: US Current Patient Location: Accession/Order Number: [id number] Exam Date: 04/10/2023 14:15 Report Date: 04/11/2023 [...] M.D. Signed By: 04/11/23204 DD/ 2 TD/TT: Computerized Table Cutter: Procedure Note Radiology, Radiologist, MD - 04/11/2023 [place] [address] Ultrasound Report Signed Patient: YVONNE BAKER DMR#: [id number] : 1995Acct:[id number] Age/Sex: 28 / FADM Date: 04/10/23 Loc: US Attending Dr: Dejan Voss D.O. Ordering Physician: Deajn Voss D.O. Date of Service: 04/10/23 Procedure(s): US OB growth Accession Number(s): [id number] cc: Dejan Voss D.O.; Physician,Non-Staff [place] [address] Patient Name: YVONNE BAKER MRN: [facility]:[id number] date: 1995 Sex: F Assigned Patient Location: US Current Patient Location: Accession/Order Number: [id number] Exam Date: 04/10/2023 14:15 Report Date: 04/11/2023 [...] [place] M.D. Signed By:04/11/23204 DD/ 2 TD/TT: Computerized Table Cutter: us Dejan Voss DO [facility] Final Result documented in this encounter Visit Diagnoses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documented in this encounter Care Teams Specimen Preparation Assistant Relationship Specialty Start Date End Date Juan Cerna DO [address] [facility] [address] [place] [address] PCP - General Family Medicine 02/02/23 10/17/23 Gregorio Garcia MD [address] [facility] [place] [address] PCP - General Family Medicine 10/18/23 documented as of this encounter
--- OUTSIDE RECORDS SUMMARY | 2025-03-01 07:06 | XMS_ITS | Encounter Summary ---
Author Organization [facility] Address [address] [place] [address] Care Team Providers Care Sales And Service Associate Name Role Phone Juan Cerna DO Primary Care Provider + [phone] Gregorio Garcia MD Primary Care Provider [phone] Encounter Details Date Type Department Care Team [...] Aide at [facility] in [place], [place]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 [...] EDT Narrative 05/03/2023 4:35 [place] [address] Ultrasound Report Signed Patient: YVONNE BAKER MR#: [id number] : 1995 Acct:[id number] Age/Sex: 28 / F ADM Date: 05/03/23 Loc: [facility] Attending Dr: Dejan Voss D.O. Ordering Physician: Dejan Voss D.O. Date of Service: 05/03/23 Procedure(s): US OB BPP w non-stress Accession Number(s): [id number] cc: CLARENCE LIVINGSTON ; Dejan Voss D.O. [place] [address] Patient Name: YVONNE BAKER MRN: [id number] date: 1995 Sex: F Assigned Patient Location: [facility] Current Patient Location: Accession/Order Number: [id number] Exam Date: 05/03/2023 11:30 Report Date: 05/03/2023 [...] M.D. Signed By: 05/03/238 DD/ 34 TD/TT: Locker Room Manager: Procedure Note Radiology, Radiologist, - 05/03/2023 [place] [address] Ultrasound Report Signed Patient: YVONNE BAKER DMR#: [id number] : 1995Acct:[id number] Age/Sex: 28 / FADM Date: 05/03/23 Loc: [facility]BCO Attending Dr: Dejan Voss D.O. Ordering Physician: Dejan Voss D.O. Date of Service: 05/03/23 Procedure(s): US OB BPP w non-stress Accession Number(s): [id number] cc: CLARENCE LIVINGSTON ; Dejan Voss D.O. [place] [address] Patient Name: YVONNE BAKER MRN: [id number] date: 1995 Sex: F Assigned Patient Location: [facility] Current Patient Location: Accession/Order Number: [id number] Exam Date: 05/03/2023 11:30 Report Date: 05/03/2023 [...] M.D. Signed By:05/03/23 1638 DD/ 1635 TD/TT: Locker Room Manager: us Generic External Data Provider [facility] Final Result documented in this encounter Visit Diagnoses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documented in this encounter Care Teams Sales And Service Associate Relationship Specialty Start Date End Date Juan Cerna DO [address] [place] [id number] PCP - General Family Medicine 02/02/23 10/17/23 Gregorio Garcia MD [address] [place] [phone] PCP - General Family Medicine 10/18/23 documented as of this encounter
--- OUTSIDE RECORDS SUMMARY | 2025-03-01 07:06 | XMS_ITS | CCD ---
Author Organization [facility] Care Team Providers Care Medical Education Manager Name Role Phone NONE, XXXX Unavailable Unavailable [...] DO Juan Cerna Primary Care Provider [phone] DO Juan Cerna Attending Provider HAWA Swartz Emergency Provider [phone] MD Gregorio Garcia Primary Care Provider Juan Swartz Admitting Unavailable Gregorio Garcia Primary Care Unavailable Juan Swartz Attending Unavailable Gregorio Garcia MD Primary Care Provider Gregorio Garcia MD Primary Care Provider Gregorio Garcia MD Primary Care Provider DEJAN VOSS Attending Unavailable DEJAN VOSS Attending Unavailable DEJAN VOSS Attending Unavailable Allergies Allergy Classification Reported Allergen(s) Allergy Type Date of Onset Reaction(s) Facility (1 source) Bee/Wasp/Ant venom; Translations: [Bee Stings] Propensity to adverse reactions (disorder) [facility] Repository (1 source) bee venom protein (honey bee) Drug allergy (disorder) 4 [facility] Repository (17 sources) Honey bee venom Propensity to adverse reactions 3 Anaphylaxis [facility] (9 sources) Honey bee venom Drug Allergy Anaphylaxis [facility] Medications Current Medications Medication Drug Class(es) Dates Sig (Normalized) Sig (Original) Home Garden (No Known Home Meds) (1 source) Start: 10-17-2023 Home Garden (No Known Home Meds) Active October 17, 2023 12:00am ondansetron 4 mg disintegrating oral tablet (17 sources) Serotonin-3 Receptor Antagonist Start: 10-17-2022 End: 02-07-2025 take 1 tablet by mouth every six hours ondansetron ODT (Zofran-ODT) 4 MG disintegrating tablet Indications: Nausea and vomiting in ([facility]) TAKE 1 TABLET BY MOUTH EVERY 6 HOURS 120 tablet 02/05/2025 Active penicillin v potassium 500 mg oral tablet (1 source) Start: 10-17-2023 take 500 mg by mouth twice daily Penicillin V Potassium Active 500 MG PO Twice daily October 17, 2023 12:00am Completed/Discontinued Medications Medication Drug Class(es) Dates Sig (Normalized) Sig (Original) Progesterone 200 MG suppository (7 sources) Start: 01-30-2025 End: 02-27-2025 Progesterone 200 MG suppository Indications: History of miscarriage Insert 200 mg into the vagina at bedtime Insert suppository vaginally every night at bedtime until 12 weeks gestation 30 suppository 01/30/2025 02/27/2025 Discontinued Start: 01-30-2025 End: 03-01-2025 Progesterone 200 MG supposit ory Indications: History of miscarriage Insert 200 mg into the vagina at bedtime Insert suppository vaginally every night at bedtime until 12 weeks gestation 30 suppository 01/30/2025 03/01/2025 Active Start: 01-04-2025 End: 02-03-2025 Progesterone 200 MG supposit ory Indications: History of miscarriage Insert 200 mg [...] unspecified; Translations: [Fever, unspecified] Onset: 10-17-2023 Episodic Hemorrhage during ; abruptio placenta; placenta previa (2 sources) Threatened miscarriage in first trimester; Translations: [Threatened ] 02-27-2025 Episodic Immunizations and screening for infectious disease [...] 08-22-2024 Episodic Other and delivery including normal (4 sources) ; Translations: [Encounter for supervision of normal , unspecified, unspecified trimester] 01-26-2025 Episodic Other upper respiratory infections (2 sources) Streptococcal sore throat; Translations: [Streptococcal pharyngitis] Onset: 10-17-2023 10-17-2023 Episodic Residual codes; unclassified (1 source) Pain, unspecified; Translations: [Pain, unspecified] Onset: 10-17-2023 Episodic Residual codes; unclassified (1 source) Gestation period, 8 weeks; Translations: [8 weeks gestation of ] 01-26-2025 Episodic Residual codes; unclassified (2 sources) Gestation period, 12 weeks; Translations: [12 weeks gestation of ] 02-27-2025 Episodic Spontaneous (2 sources) Miscarriage; Translations: [Complete or unspecified spontaneous without complication] 01-02-2025 Episodic Results Test Name Value Interpretation Reference Range Facility US OB TRANSVAGINALon 025 US OB TRANSVAGINAL FINDINGS: Single intrauterine gestational sac with a [...] Comment on above: Order Comment: US OB VIABILITY PLEASE PERFORM TRANSVAGINAL ULTRASOUND IF INDICATED No LMP recorded (lmp unknown). Patient is . US Pelvis transvaginalon No cardiac activity identified, crown rump length suggesting a 13 week and 0 day gestational age. TRANSCRIBED BY: ELECTRONICALLY SIGNED BY: Brent Moore MD IMAGING FINDINGS: Single intrauterine gestational sac with a pole measuring 6.6 cm which would be consistent with a 13-week and 0-day gestational age however there is no cardiac or activity identified. Cervix is closed, 5.0 cm length. No pelvic fluid. IMAGING Brent Moore M D - 02/27/2025 FINDINGS: Single intrauterine gestational sac [...] BY: ELECTRONICALLY SIGNED BY: Brent Moore MD [facility] Radiology Study observation (narrative) [facility] US Pelvis transvaginalOrdere d By: Brent Moore on 02-27-2025 [facility] Work Phone: Urinalysis macro (dipstick) panel (U)on 02-27-2025 Bilirubin, UA Negative Negative - 4(70) +++ mg/dL [facility] Blood, UA Positive Negative - 50 Ronal/mcL [facility] Clarity, UA Clear [facility] Color, UA Yellow [facility] Glucose, UA Negative Negative - 2000(110) ++++ mg/dL [facility] Interpretation and review of laboratory results Abnormal [facility] Ketones, UA Negative Negative - 160(16) ++++ mg/dL [facility] Leukocytes, UA Positive Negative - 500+++ Gilbert/mcL [facility] Comment on above: 3+ Nitrite, UA Negative Negative - Positive [facility] pH, UA 6 5 - 9 [facility] Protein, UA Negative Negative - 1999(20) ++++ mg/dL [facility] Spec Grav, UA 1.025 1 - 1.03 [facility] Urobilinogen, UA 1.0 0.2 - 12 mg/dL [facility] BOX TESTon 02-02-2025 BOX TEST SENT OUT YES [facility] BOX1 UNITY [facility] BOX2 02/02/25 [facility] HCG ( test) Ql (U)o n 01-26-2025 Interpretation and review of laboratory results Abnormal [facility] Preg Test, Ur Positive Negative [facility] US OB TRANSVAGINALon 025 US OB TRANSVAGINAL FINDINGS: [...] UA Negative Negative - 4(70) +++ mg/dL [facility] Blood, UA Negative Negative - 50 Ronal/mcL [facility] Clarity, UA Clear [facility] Color, UA Yellow [facility] Glucose, UA Negative Negative - 1999(110) ++++ mg/dL [facility] Interpretation and review of laboratory results Normal [facility] Ketones, UA Negative Negative - 160(16) ++++ mg/dL [facility] Leukocytes, UA Trace Negative - 500+++ Gilbert/mcL [facility] Nitrite, UA Negative Negative - Positive [facility] pH, UA 7 5 - 9 [facility] Protein, UA Negative Negative - 1999(20) ++++ mg/dL [facility] Spec Grav, UA 1.02 1 - 1.03 [facility] Urobilinogen, UA 0.2 0.2 - 12 mg/dL [facility] US OB TRANSVAGINALon 025 US OB TRANSVAGINAL [...] II, MD, PHD at 11-Jan-2025 09:47:30 AM [facility] Normal Not Available [facility] PREG QUANT HCGon 025 HCG QUANTITATIVE 95218 mIU/mL [facility] Comment on above: 5-50 0.2-1 WEEK 50-500 1-2 WEEKS 100-5,000 2-3 WEEKS 500-10,000 3-4 WEEKS 1,000-50,000 4-5 WEEKS 10,000-100,000 5-6 WEEKS 15,000-200,000 6-8 WEEKS 10,000-100,000 2-3 [facility] 025 HCG QUANTITATIVE 16247 mIU/mL [facility] Comment on above: 5-50 0.2-1 WEEK 50-500 1-2 WEEKS 100-5,000 2-3 WEEKS 500-10,000 3-4 WEEKS 1,000-50,000 4-5 WEEKS 10,000-100,000 5-6 WEEKS 15,000-200,000 6-8 WEEKS 10,000-100,000 2-[address] [place] Urinalysis macro (dipstick) panel (U)on 01-02-2025 Bilirubin, UA Negative Negative - 4(70) +++ mg/dL [facility] Blood, UA Negative Negative - 50 Ronal/mcL [facility] Clarity, UA Clear [facility] Color, UA Yellow [facility] Glucose, UA Negative Negative - 2000(110) ++++ mg/dL [facility] Interpretation and review of laboratory results Normal [facility] Ketones, UA Negative Negative - 160(16) ++++ mg/dL [facility] Leukocytes, UA Negative Negative - 500+++ Gilbert/mcL [facility] Nitrite, UA Negative Negative - Positive [facility] pH, UA 6 5 - 9 [facility] Protein, UA Negative Negative - 2000(20) ++++ mg/dL [facility] Spec Grav, UA 1.025 1 - 1.03 [facility] Urobilinogen, UA 0.2 0.2 - 12 mg/dL [facility] PREG QUANT HCGon 025 HCG QUANTITATIVE 114 mIU/mL [facility] Comment on above: 5-50 0.2-1 WEEK 50-500 1-2 WEEKS 100-5,000 2-3 WEEKS 500-10,000 3-4 WEEKS 1,000-50,000 4-5 WEEKS 10,000-100,000 5-6 WEEKS 15,000-200,000 6-8 WEEKS 10,000-100,000 2-3 [facility] 025 HCG QUANTITATIVE 292 mIU/mL [facility] Comment on above: 5-50 0.2-1 WEEK 50-500 1-2 WEEKS 100-5,000 2-3 WEEKS 500-10,000 3-4 WEEKS 1,000-50,000 4-5 WEEKS 10,000-100,000 5-6 WEEKS 15,000-200,000 6-8 WEEKS 10,000-100,000 2-3 [facility] OB TRANSV[facility]on 025 [place] [address] Ultrasound Report Signed Patient: YVONNE BAKER MR#: [id number] : 1995 Acct:[id number] Age/Sex: 29 / F ADM Date: 11/22/24 Loc: US Attending Dr: Dejan Voss D.O. Ordering Physician: Dejan Voss D.O. Date of Service: 11/22/24 Procedure(s): US OB transvaginal Accession Number(s): [id number] cc: Dejan Voss D.O.; Gregorio Garcia M.D. [address] [address] Patient Name: YVONNE BAKER MRN: [id number] date: 1995 Sex: F Assigned Patient Location: US Current Patient Location: US Accession/Order Number: [id number] Exam Date: 11/22/2024 16:44 Report Date: 11/22/2024 [...] Jr., D.O. 11/22/2024 4:47 PM Dictation Location: [place] [address] Electronically authenticated by: [id number] Y Date: 11/22/2024 16:47 Dictated By: Brent Jonas M.D. Signed By: 11/22/241649 DD/ 1647 TD/TT: Channel Supervisor: [facility] Radiology, Ramírezogmichael townsend MD - 11/22/2024 [place] [address] Ultrasound Report Signed Patient: YVONNE BAKER MR#: [id number] : 1995 Acct:[id number] Age/Sex: 29 / F ADM Date: 11/22/24 Loc: US Attending Dr: Dejan Voss D.O. Ordering Physician: Dejan Voss D.O. Date of Service: 11/22/24 Procedure(s): US OB transvaginal Accession Number(s): [id number] cc: Dejan Voss D.O.; Gregorio Garcia M.D. The [place] [id number] Patient Name: YVONNE BAKER MRN: [facility]:[id number] date: 1995 Sex: F Assigned Patient Location: US Current Patient Location: US Accession/Order Number: [id number] Exam Date: 11/22/2024 16:44 Report Date: 11/22/2024 [...] Jr., D.O. 11/22/2024 4:47 PM Dictation Location: [place] [address] Electronically authenticated by: [id number] Y Date: 11/22/2024 16:47 Dictated By: Brent Jonas M.D. Signed By: 11/22/24 1650 DD/ 1647 TD/TT: Channel Supervisor: [facility] Radiology Study observation (narrative) [facility] US OB TRANSVAGINALOrdered By : Radiologist Radiology on 11-22-2024 [facility] Work Phone: [facility] PREG QUANT HCGon 025 HCG QUANTITATIVE <1 mIU/mL [facility] Comment on above: 5-50 0.2-1 WEEK 50-500 1-2 WEEKS 100-5,000 2-3 WEEKS 500-10,000 3-4 WEEKS 1,000-50,000 4-5 WEEKS 10,000-100,000 5-6 WEEKS 15,000-200,000 6-8 WEEKS 10,000-100,000 2-3 MONTHS [facility] COVID-19 / Flu A/B / [...] or Cepheid Disclaimer revoked sooner. PERFORMED BY: [place] [address] PATHOLOGIST ADHESIVE BANDAGE MAKING OPERATOR ELADIO POWELL M.D. Normal [facility] Comment on above: Performed By: #### C EPHEID NEG, COVID19 FLU RSV, QS #### [address] Cepheid COVID PCR Negativeon 10-17-2023 SARS-CoV-2 (COVID-19) RNA MOR+probe Ql (Unsp spec) Negative Normal Negative [facility] Comment on above: Result Comment: This is a duplicate CepJelly HQid Xpert Xpress CoV-2/Flu/RSV Plus RNA by RT-PCR result to be used for statistical tracking purpose only. PERFORMED BY: [place] [address] PATHOLOGIST ADHESIVE BANDAGE MAKING OPERATOR ELADIO POWELL M.D. Performed By: #### C EPHEID NEG, COVID19 FLU RSV, QS #### [place] [id number] [facility] Quick Strepon 10-17-2023 S. pyogenes Ag IA Ql (Unsp spec) Streptococcus pyogenes Ag [Presence] in Throat by Rapid immunoassay Positive for Group A Strep Antigen Reference range = Negative PERFORMED BY: [place] [address] PATHOLOGIST ADHESIVE BANDAGE MAKING OPERATOR ELADIO POWELL M.D. Normal [facility] Comment on above: Performed By: #### C EPHEID NEG, COVID19 FLU RSV, QS #### [place] [id number] [facility] Streptococcus pyogenes antig en detectionOrdered By: Juan Swartz on 10-17-2023 S. pyogenes Ag Ql (Unsp spec) [facility] Basophils Auto (Bld) [#/Vol] Ordered By: Juan Cerna on 05-06-2022 Basophils (Bld) [#/Vol] 0.0 10*3/uL 0.0-0.2 [facility] Basophils/100 WBC Auto (Bld) Ordered By: Juan Cerna on 05-06-2022 Basophils/100 WBC (Bld) 0.6 % . [facility] Body fluid albumin measureme nt (mass/volume)Ordered By: Juan Cerna on 05-06-2022 Albumin (Body fld) [Mass/Vol] 4.4 g/dL 3.2-5.5 [facility] Cholesterol [Mass/volume] in Serum or PlasmaOrdered By: Juan Cerna on 05-06-2022 Cholesterol [Mass/Vol] 191 mg/dL 140-200 [facility] Comment on above: Chol less than 200 m g/dl low riskChol 201-239 mg/dl borderline riskChol 240 mg/dl and greater high risk Cholesterol in LDL Calc [Mas s/Vol]Ordered By: Juan Cerna on 05-06-2022 Cholesterol in LDL [Mass/Vol] 103 mg/dL 0-100 [facility] Comment on above: LDL ATP III CLASSIFI CATIONLDL less than 100 mg/dL OptimalLDL 100-129 mg/dL Near or above optimalLDL 130-159 mg/dL Borderline highLDL 160-189 mg/dL HighLDL greater than 189 mg/dL Very high Cholesterol in VLDL Calc [Ma ss/Vol]Ordered By: Juan Cerna on 05-06-2022 Cholesterol in VLDL [Mass/Vol] 7 mg/dL [facility] Creatinine and Glomerular fi ltration rate.predicted panel (S/P/Bld)Ordered By: Juan Cerna on 05-06-2022 Creatinine [Mass/Vol] 0.63 mg/dL 0.44-1.03 [facility] Eosinophils Auto (Bld) [#/Vo l]Ordered By: Juan Cerna on 05-06-2022 Eosinophils (Bld) [#/Vol] 0.1 10*3/uL 0.0-0.45 [facility] Eosinophils/100 WBC Auto (Bl d)Ordered By: Juan Cerna on 05-06-2022 Eosinophils/100 WBC (Bld) 0.7 % . [facility] Erythrocyte distribution wid th Auto (RBC) [Ratio]Ordered By: Juan Cerna on 05-06-2022 Erythrocyte distribution width (RBC) [Ratio] 13.3 % 11.9-15.3 [facility] Estimated glomerular filtrat ion rate (GFR) non- AmericanOrdered By: Juan Cerna on 05-06-2022 GFR/1.73 sq M.predicted among non-blacks MDRD (S/P/Bld) [Vol rate/Area] > 60 mL/Min [facility] Globulin Calc (S) [Mass/Vol] Ordered By: Juan Cerna on 05-06-2022 Globulin (S) [Mass/Vol] 2.6 g/dL [facility] Hematocrit Auto (Bld) [Volum e fraction]Ordered By: Juan Cerna on 05-06-2022 Hematocrit (Bld) [Volume fraction] 42.9 % 34.0-46.4 [facility] Hemoglobin [Mass/volume] in BloodOrdered By: Juan Cerna on 05-06-2022 Hemoglobin (Bld) [Mass/Vol] 13.8 g/dL 11.8-15.4 [facility] Laboratory - Hematology and Cell countsOrdered By: Juan Cerna on 05-06-2022 Nucleated RBC/100 WBC (Bld) [Ratio] 0.1 % 0-0.5 [facility] Leukocytes [#/volume] in Blo od by Automated countOrdered By: Juan Cerna on 05-06-2022 WBC (Bld) [#/Vol] 7.6 10*3/uL 4.5-11.0 [facility] Lymphocytes Auto (Bld) [#/Vo l]Ordered By: Juan Cerna on 05-06-2022 Lymphocytes (Bld) [#/Vol] 2.6 10*3/uL 1.00-4.8 [facility] Lymphocytes/100 WBC Auto (Bl d)Ordered By: Juan Cerna on 05-06-2022 Lymphocytes/100 WBC (Bld) 34.7 % . [facility] MCH Auto (RBC) [Entitic mass ]Ordered By: Juan Cerna on 05-06-2022 MCH (RBC) [Entitic mass] 29.7 pg 24.7-34.3 [facility] MCHC Auto (RBC) [Mass/Vol]Or dered By: Juan Cerna on 05-06-2022 MCHC (RBC) [Mass/Vol] 32.2 g/dL 32.0-35.0 [facility] MCV Auto (RBC) [Entitic vol] Ordered By: Juan Cerna on 05-06-2022 MCV (RBC) [Entitic vol] 92.3 fL 80-100 [facility] Monocytes Auto (Bld) [#/Vol] Ordered By: Juan Cerna on 05-06-2022 Monocytes (Bld) [#/Vol] 0.5 10*3/uL 0.0-0.8 [facility] Monocytes/100 WBC Auto (Bld) Ordered By: Juan Cerna on 05-06-2022 Monocytes/100 WBC (Bld) 6.1 % . [facility] Neutrophils Auto (Bld) [#/Vo l]Ordered By: Juan Cerna on 05-06-2022 Neutrophils (Bld) [#/Vol] 4.4 10*3/uL 1.8-7.7 [facility] Neutrophils/100 WBC Auto (Bl d)Ordered By: Juan Cerna on 05-06-2022 Neutrophils/100 WBC (Bld) 57.9 % . [facility] No Panel InformationOrdered By: Juan Cerna on 05-06-2022 Estimated GFR () > 60 mL/Min [facility] Comment on above: GFR estimated refere nce range: According to KDOQI guidelines, <60 ml/min/1.73m2 is sufficient to diagnose a patient with chronic kidney disease. Pharmacy Creatinine Clearance (Chem N/A [facility] Platelet mean volume Auto (B ld) [Entitic vol]Ordered By: Juan Cerna on 05-06-2022 Platelet mean volume (Bld) [Entitic vol] 9.9 fL 6.3-10.7 [facility] Platelets Auto (Bld) [#/Vol] Ordered By: Juan Cerna on 05-06-2022 Platelets (Bld) [#/Vol] 253 10*3/uL 150-450 [facility] Protein [Mass/volume] in Ser um or PlasmaOrdered By: Juan Cerna on 05-06-2022 Protein [Mass/Vol] 7.0 g/dL 6.1-7.9 [facility] RBC Auto (Bld) [#/Vol]Ordere d By: Juan Cerna on 05-06-2022 RBC (Bld) [#/Vol] 4.65 10*6/uL 3.60-5.00 [place] Serum or plasma alanine cochran otransferase measurement without P-5'-P (enzymatic activiOrdered By: Juan Cerna on 05-06-2022 ALT No additional P-5'-P [Catalytic activity/Vol] 14 U/L 10-60 [facility] Serum or plasma albumin/glob ulin mass ratioOrdered By: Juan Cerna on 05-06-2022 Albumin/Globulin [Mass ratio] 1.7 {ratio} [facility] Serum or plasma alkaline jeremy sphatase measurement (enzymatic activity/volume)Ordered By: Juan Cerna on 05-06-2022 ALP [Catalytic activity/Vol] 42 U/L 32-92 [facility] Serum or plasma anion gap de terminationOrdered By: Juan Cerna on 05-06-2022 Anion gap [Moles/Vol] 13.3 mmol/L 6.0-15.0 [facility] Serum or plasma aspartate am inotransferase measurement (enzymatic activity/volume)Ordered By: Juan Cerna on 05-06-2022 AST [Catalytic activity/Vol] 17 U/L 10-42 [facility] Serum or plasma calcium crystal urement (mass/volume)Ordered By: Juan Cerna on 05-06-2022 Calcium [Mass/Vol] 9.9 mg/dL 8.2-10.2 [facility] Serum or plasma chloride jenna surement (moles/volume)Ordered By: Juan Cerna on 05-06-2022 Chloride [Moles/Vol] 100 mmol/L 95-114 [facility] Serum or plasma glucose crystal urement (mass/volume)Ordered By: Juan Cerna on 05-06-2022 Glucose [Mass/Vol] 81 mg/dL 70-100 [facility] Comment on above: ADA recommended refe rence rangeRandom Glucose Reference Range is dependent on time and content of last meal. Glucose of more than 200 mg/dL in a nonstressed, ambulatory subject supports the diagnosis of Diabetes Mellitus. Serum or plasma high density lipoprotein (HDL) cholesterol measurementOrdered By: Juan Cerna on 05-06-2022 Cholesterol in HDL [Mass/Vol] 80 mg/dL 35-85 [facility] Comment on above: HDL CHOL ATP-III CLA SSIFICATION Cardiovascular RiskHDL > or equal to 60 mg/dL LOWHDL < 40 mg/dL HIGH Serum or plasma potassium me asurement (moles/volume)Ordered By: Juan Cerna on 05-06-2022 Potassium [Moles/Vol] 3.6 mmol/L 3.5-5.1 [facility] Serum or plasma sodium measu rement (moles/volume)Ordered By: Juan Cerna on 05-06-2022 Sodium [Moles/Vol] 136 mmol/L 136-146 [facility] Serum or plasma total biliru bin measurement (mass/volume)Ordered By: Juan Cerna on 05-06-2022 Bilirubin [Mass/Vol] 0.9 mg/dL 0.3-1.2 [facility] Serum or plasma total carbon dioxide measurement (moles/volume)Ordered By: Juan Cerna on 05-06-2022 CO2 [Moles/Vol] 26.3 mmol/L 22.0-30.0 [facility] Serum or plasma total choles terol/high density lipoprotein (HDL) cholesterol mass ratOrdered By: Juan Cerna on 05-06-2022 Cholesterol.total/Cho lesterol in HDL [Mass ratio] 2.4 {ratio} <5.0 [facility] Serum or plasma urea nitroge n measurement (mass/volume)Ordered By: Juan Cerna on 05-06-2022 Urea nitrogen [Mass/Vol] 14 mg/dL 9-23 [facility] Triglyceride [Mass/volume] i n Serum or PlasmaOrdered By: Juan Cerna on 05-06-2022 Triglyceride [Mass/Vol] 39 mg/dL 35-149 [facility] Comment on above: TRIG ATP III CLASSIF ICATIONTRIG less than 150 mg/dL NormalTRIG 150-199 mg/dL Borderline highTRIG 200-500 mg/dL High TRIG greater than 500 mg/dL Very highStandard traceable to the Center for Disease Conrtrol and Prevention (CDC) test method. COVID-19 PCRon 02-27-2020 SARS-CoV-2, MOR Not Detected Normal Not Detected [facility] Comment on above: Result Comment: This test was developed and its performance characteristics determined by [employer]. This test has not been FDA cleared [...] assay. Performed By: #### C VDPCR #### [facility] [address] [place] [address] [address] [place] Coding Summary.on 09-12-2017 Coding Summary. CODING DATE: 018 FINAL [facility] STATUS: Home (Routine DC) PAYOR: Self [...] Revised Date Saved: 09/12/2017 10:53 am Normal [facility] Acetamnphn Lvlon 09-10-2017 Acetaminophen mass conc 14 microgram/mL Low 15-30 [facility] Comment on above: Performed By: #### 2 [id number] ####[facility] [id number] [place] [address] Auto Diffon 09-10-2017 Basophils Auto #/vol (Bld) 0.8 % Normal 0.0-2.0 [facility] Comment on above: Order Comment: Order Added by Discern Expert. Performed By: #### 2 [id number] ####[facility] [id number] [place] [address] Basophils/Leukocytes Auto Pure number fraction (Bld) 0.1 E9/L Normal 0.0-0.2 [facility] Comment on above: Order Comment: Order Added by Discern Expert. Performed By: #### 2 [id number] ####[facility] [id number] [place] [address] Eosinophils/100 WBC Auto (Bld) 0.2 % Normal 0.0-8.0 [facility] Comment on above: Order Comment: Order Added by Discern Expert. Performed By: #### 2 [id number] ####[facility] [id number] [place] [address] Eosinophils/Leukocyte s Auto Pure number fraction (Bld) 0.0 E9/L Normal 0.0-0.5 [facility] Comment on above: Order Comment: Order Added by Discern Expert. Performed By: #### 2 [id number] ####[facility] [id number] [place] [address] Lymphocytes/100 WBC Auto (Bld) 29.7 % Normal 14.0-50.0 [facility] Comment on above: Order Comment: Order Added by Discern Expert. Performed By: #### 2 [id number] ####[address] [address] Lymphocytes/Leukocyte s Auto Pure number fraction (Bld) 2.0 E9/L Normal 1.0-4.0 [facility] Comment on above: Order Comment: Order Added by Discern Expert. Performed By: #### 2 [id number], [id number], 4194672 ####[address] [address] Monocytes/100 WBC Auto (Bld) 4.7 % Normal 4.0-14.0 [facility] Comment on above: Order Comment: Order Added by Mil Expert. Performed By: #### 2 3587331, 54554016, 1111830 ####[address] [address] Monocytes/Leukocytes Auto Pure number fraction (Bld) 0.3 E9/L Normal 0.2-1.0 [facility] Comment on above: Order Comment: Order Added by Mil Expert. Performed By: #### 2 7343839, 42555241, 3866679 ####[address] [address] Neutrophils/100 WBC Auto (Bld) 64.6 % Normal 36.0-75.0 [facility] Comment on above: Order Comment: Order Added by Mil Expert. Performed By: #### 2 7750410, 34777133, 6528490 ####[address] [address] Neutrophils/Leukocyte s Auto Pure number fraction (Bld) 4.4 E9/L Normal 2.0-7.5 [facility] Comment on above: Order Comment: Order Added by Mil Expert. Performed By: #### 2 7267007, 64462383, 9598325 ####[address] [place] [address] B hCG Qualon 09-10-2017 Beta hCG Ql Negative Normal [facility] Comment on above: Performed By: #### 2 7687561, 36532100, 8310602 ####[facility] [address] [place] [address] BMPon 09-10-2017 Anion gap 3 molar conc 14 mmol/L Normal 6-16 [facility] Comment on above: Performed By: #### 2 9684955, 95385702, 2954110 ####[facility] [address] [place] [address] Calcium mass conc 9.3 mg/dL Normal 8.9-11.1 [facility] Comment on above: Performed By: #### 2 2965396, 59572327, 2616454 ####[facility] [address] [place] [address] Chloride molar conc 100 mmol/L Low 101-111 [facility] Comment on above: Performed By: #### 2 5376368, 12672792, 0726280 ####[facility] [address] [place] [address] CO2 molar conc 23 mmol/L Normal 21-31 [facility] Comment on above: Performed By: #### 2 9494524, 41524249, 0258971 ####[facility] [address] [place] [address] Creatinine mass conc 0.8 mg/dL Normal 0.5-1.3 [facility] Comment on above: Performed By: #### 2 8959317, 26737360, 0210238 ####[facility] [address] [place] [address] Glucose mass conc 105 mg/dL Normal 55-199 [facility] Comment on above: Result Comment: If t his glucose result represents a fasting glucose, interpretation should refer to the following reference range: 55-99 mg/dL Performed By: #### 2 3839030, 29998942, 2351257 ####[facility] [address] [place] [address] Potassium molar conc 2.9 mmol/L Low 3.5-5.3 [facility] Comment on above: Performed By: #### 2 5234640, 14397219, 4260507 ####[facility] [address] [place] [address] Sodium molar conc 134 mmol/L Low 135-145 [facility] Comment on above: Performed By: #### 2 5078947, 46314723, 4346917 ####[facility] [address] [place], [place] [address] Urea nitrogen mass conc 11 mg/dL Normal 5-21 [facility] Comment on above: Performed By: #### 2 5313458, 68345210, 8887761 ####[facility] [address] [place], [place] [address] Urea nitrogen/Creatinine mass ratio 14 No Units Normal 10-20 [facility] Comment on above: Performed By: #### 2 6209790, 94470025, 6674895 ####[facility] [address] [place], [place] [address] CBC w/ Auto Diffon 8 Erythrocyte distribution width Auto Ratio (RBC) 13.7 % Normal 10.9-14.2 [facility] Comment on above: Performed By: #### 2 2915429, 55011234, 7673119 ####[facility] [address] [place], [place] [address] Hematocrit Auto Volume Fraction (Bld) 41.6 % Normal 34.0-46.0 [facility] Comment on above: Performed By: #### 2 9195390, 29728901, 5815043 ####[facility] [address] [place] [address] Hemoglobin mass conc (Bld) 14.4 g/dL Normal 12.0-16.0 [facility] Comment on above: Performed By: #### 2 3468768, 29026913, 1637611 ####[facility] [address] [place] [address] MCH Auto Entitic mass (RBC) 30.9 pg Normal 27.0-34.0 [facility] Comment on above: Performed By: #### 2 8553353, 22087309, 9428250 ####[place] [address] MCHC Auto mass conc (RBC) 34.5 g/dL Normal 31.4-39.3 [facility] Comment on above: Performed By: #### 2 2841356, 00408397, 0742893 ####[place] [address] MCV Auto Entitic volume (RBC) 89.5 fL Normal 80.0-100.0 [facility] Comment on above: Performed By: #### 2 8491049, 81252629, 8851190 ####[place] [address] Platelet mean volume Auto Entitic volume (Bld) 9.6 fL Normal 6.4-10.8 [facility] Comment on above: Performed By: #### 2 1137731, 93970995, 8531077 ####[place] [address] Platelets Auto #/vol (Bld) 291.0 E9/L Normal 150.0-500. 0 [facility] Comment on above: Performed By: #### 2 7142087, 35453789, 7271008 ####[place] [address] RBC Auto #/vol (Bld) 4.6 E12/L Normal 4.3-5.9 [facility] Comment on above: Performed By: #### 2 6679798, 45176196, 3055542 ####[place] [address] WBC corrected for nucl RBC Auto #/vol (Bld) 6.8 E9/L Normal 4.0-11.0 [facility] Comment on above: Performed By: #### 2 3146950, 26062085, 3877255 ####[facility] [address] [place] [address] ED Clinical Summaryon 2017 ED Clinical Summary (Inserted Image. Mireya ble to display) [address] [address] ED Clinical SummaryPerson Information Name: YVONNE GOODEN/Ivone [...] PM 09/10/2017 3:46 PM 09/10/2017 3:46 PM ADDRESS:[address] [place] [id number] [facility] DOC NOTES: Patient: YVONNE GOODEN Age: 22 [...] Medical/ Family/ Social History Medical history: ResolvedDepression ([id number]): Resolved.. Surgical history: No active procedure history items have been selected or recorded.. Family history: No family history items have been selected or recorded.. Social history: Social & Psychosocial RoaqgmChtkblm70/26/2017 Risk Assessment: Denies Alcohol Use09/10/2017 Use: Current Frequency: 1-2 times per month Has alcohol use interfered with work or home life? No Do you ever drink more than intended? No Has anyone been hurt or at risk by your drinking? No Ready to change: NoSubstance Abuse09/10/2017 Use: Current Comment: denied - 09/10/2017 11:41 - [place], RnfoeXqufhnb07/26/2017 Risk Assessment: Denies Tobacco Use. Problem list: [...] Auto 64.6 % Lymph Auto 29.7 % [place] Auto 4.7 % Eos Auto 0.2 % Basophil Auto 0.8 % Neutro Absolute 4.4 E9/L Lymph Absolute 2.0 E9/L [place] Absolute 0.3 E9/L Eos Absolute 0.0 E9/L [...] Impression and Plan Diagnosis General medical (PNED [id number], Reason For Visit, Emergency medicine, Medical) Complaint of Intentional drug overdose (PNED [id number], Reason For Visit, Emergency medicine, Medical) Intentional drug overdose (EAF63-LW T50.902A, Discharge, Emergency medicine, Medical) Suicidal ideation (BEA23-WF R45.851, Discharge, Emergency medicine, Medical) Plan Condition: Improved, Stable. Disposition: Discharged: to home. Patient was given the following educational materials: Nontoxic Ingestion, Poisoning Information, Adult, Suicidal Feelings: How to Help Yourself, Suicidal Feelings: How to Help Yourself, Poisoning Information, Adult, Nontoxic Ingestion. Follow up with: ; [facility] In 3 days 09/13/2017. Counseled: Patient, [...] Adult; Nontoxic Ingestion Follow up:With: Address: When: [facility] In 3 days 09/13/2017 DIAGNOSIS:Intentional drug overdose; Suicidal ideation Normal [facility] ED Note-Nursingon 09-10-2017 ED Note-Nursing pt [...] notified pt denied needs getting dressed Normal [facility] ED Note-Physicianon 09-10-19 18 ED Note-Physician Patient: JEREMIE GOODEN Age: 22 [...] Medical/ Family/ Social History Medical history: ResolvedDepression ([id number]): Resolved.. Surgical history: No active procedure history items have been selected or recorded.. Family history: No family history items have been selected or recorded.. Social history: Social & Psychosocial HedahcWynshbp72/26/2017 Risk Assessment: Denies Alcohol Use09/10/2017 Use: Current Frequency: 1-2 times per month Has alcohol use interfered with work or home life? No Do you ever drink more than intended? No Has anyone been hurt or at risk by your drinking? No Ready to change: NoSubstance Abuse09/10/2017 Use: Current Comment: denied - 09/10/2017 11:41 - [place], QhdweZrhmjhd30/26/2017 Risk Assessment: Denies Tobacco Use. Problem list: [...] Auto 64.6 % Lymph Auto 29.7 % [place] Auto 4.7 % Eos Auto 0.2 % Basophil Auto 0.8 % Neutro Absolute 4.4 E9/L Lymph Absolute 2.0 E9/L [place] Absolute 0.3 E9/L Eos Absolute 0.0 E9/L [...] Impression and Plan Diagnosis General medical (PNED [id number], Reason For Visit, Emergency medicine, Medical) Complaint of Intentional drug overdose (PNED [id number], Reason For Visit, Emergency medicine, Medical) Intentional drug overdose (MXG53-BL T50.902A, Discharge, Emergency medicine, Medical) Suicidal ideation (ZEP76-LD R45.851, Discharge, Emergency medicine, Medical) Plan Condition: Improved, Stable. Disposition: Discharged: to home. Patient was given the following educational materials: Nontoxic Ingestion, Poisoning Information, Adult, Suicidal Feelings: How to Help Yourself, Suicidal Feelings: How to Help Yourself, Poisoning Information, Adult, Nontoxic Ingestion. Follow up with: ; [facility] In 3 days 09/13/2017. Counseled: Patient, Regarding diagnosis, Regarding diagnostic results, Regarding treatment plan, Regarding prescription, Patient indicated understanding of instructions. Notes: Return to the ER if condition changes or worsens or if you have any other concerns. Otherwise see your family doctor for follow up.. Normal [facility] Comment on above: Result Comment: Geetha voss Signed By: Mirza Hogan DO\.teodora\Date and Time Signed: 09/10/17 15:41 EST ED [...] day. It is best if it is dysq-lc-qjws. Remember, they will want to help you.? [...] your local emergency services (911 in the [place]).? Call a suicide hotline:? 8-164-839-TALK ( ) in the [place].? 3-906-CVACOEA ( ) in the [place].? in the [facility] for [place]-speaking counselors.? 5-014-480-4TTY ( ) in the [facility] for TTY users.? Visit the following websites for information and help:? National Suicide Prevention Lifeline: www.suicidepreventionlifelin e.org? Hopeline: www.hopeline.com? Malagasy Foundation for Suicide Prevention: www.afsp.org? For lesbian, hollis, bisexual, transgender, or questioning youth, contact The Eloy Project:? 9-404-3-U-ELOY ( ) in the [place].? www.thetrevorproject.org? In [place], treatment resources are listed in each province with listings available under [employer] or similar titles. Another source for Crisis Centres by Province is located at http://www.suicideprevention .ca/vk-spjkgj-vgg/find-a-cri jjr-gkatkk-fhm/crisis-centre sDocument Released: 01/09/2004 Document Revised: 09/26/2012 Document Reviewed: 10/30/2014ExitCare? Patient Information ?2015 [employer]. This information is not intended to replace [...] 09/26/2012 Document Reviewed: 08/05/2009ExitCare? Patient Information ?2014 [facility]. This information is not intended to replace [...] poisoning are: ? Medicines, including prescription medicines, muoo-ivz-mzuvipw pain medicines, vitamins, iron pills, and herbal supplements.? Cleaning or laundry products.? [place] and paint thinner.? Davis or insect killers.? Perfume, hair spray, or nail products.? Alcohol.? Plants, such as philodendron, poinsettia, oleander, castor baker, cactus, and tomato plants.? Batteries.? Furniture hebrew.? Drain peanut shaker.? Antifreeze or other automotive products.? Gasoline, design technician fluid, or lamp oil.? Carbon monoxide gas from furnaces or automobiles.? Toxic fumes from the burning of plastics or certain other materials.WHAT ARE SOME FIRST-AID MEASURES FOR POISONING?The local poison control center must be contacted whenever a person may have been exposed to poison. The poison water pollution control inspector will often give a set of directions [...] to identify the medicine to the poison water pollution control inspector.?? Get away from the area where exposure [...] Keep all dangerous household products (such as design technician fluid, paint thinner and remover, gasoline, and antifreeze) in locked cabinets. ? Do not mix different household chemicals with each other.? Use protective equipment (gloves, goggles, masks, aprons) as needed when using chemicals or peanut shaker.? Install a carbon monoxide detector in [...] to find the number.The local emergency services (180 in [place] must be contacted if a [...] 11/19/2014 Document Reviewed: 06/21/2013ExitCare? Patient Information ?2014 [employer]. This information is not intended to replace advice given to you by your health care provider. Make sure you discuss any questions you have with your health care provider. Normal [facility] ED Patient Summaryon 018 ED Patient Summary (Inserted Image. Mireya ble to display) [place] [id number] Patient Discharge Instructions Person Information Name: YVONNE GOODEN Age: 22 Years Date: 09/10/2017 11:11 AMDischarge Diagnosis: Intentional drug overdose; Suicidal ideation Primary Care Physician: NONE, XXXX Provider InformationPrimary Provider: Johanna Hogan DO Parole Board Member:Jared The exam and treatment you received in the Emergency Department were for an urgent problem and are not intended as complete care. It is important that you follow up with a doctor, nurse practitioner, or physician?s welder assistant for ongoing care. If your symptoms become worse or you do not improve as expected and you are unable to reach your usual health care provider, you should return to the Emergency Department. We are available 24 hours a day. YVONNE GOODEN has been given the following list of patient education materials, prescriptions and follow-up instructions: Follow-up Instructions:With: Address: [facility]: [facility] In 3 days 09/13/2017 In the event that this physician does not participate in your insurance network, please consult with your insurance company to find a nearby participating provider. Patient Education Materials:Suicidal Feelings: How to Help Yourself; Poisoning Information, Adult; Nontoxic Ingestion Medications Given:Medication Dose Route Sodium Chloride 0.9% intravenous solution 1000.00 mL Initial Volume 1000.00 mL/hr IV Right Antecubit [place] potassium chloride 40.00 mEq Oral Medication Information:Medications to Continue with No ChangesOther Medicationsethinyl estradiol-norgestimate (TriNessa oral tablet) fluoxetine (FLUoxetine 10 mg Cap) Comment: Pharmacy Information: Thank you for choosing [facility] Patient Education Materials: Suicidal Feelings, [...] day. It is best if it is pgms-rp-cusa. Remember, they will want to help you.? [...] your local emergency services (911 in the [place]).? Call a suicide hotline:? 0-441-808-TALK ( ) in the [facility].? 8-231-TDNXFHS ( ) in the [place].? in the [place] for [place]-speaking counselors.? 6-520-521-4TTY ( ) in the [place] for TTY users.? Visit the following websites for information and help:? National Suicide Prevention Lifeline: www.suicidepreventionlifelin Loudr.org? Hopeline: www.Start[employer] Weekend.[employer]? Malagasy Foundation for Suicide Prevention: www.afsp.org? For lesbian, hollis, bisexual, transgender, or questioning youth, contact The Eloy Project:? 3-393-9-U-ELOY ( ) in the [place].? www.thetrevorproject.org? In [place], treatment resources are listed in each province with listings available under [employer] or similar titles. Another source for Crisis Centres by Province is located at http://www.suicideprevention .ca/tk-qxsfbs-dyr/find-a-cri yeb-mgawsh-kyc/crisis-centre sDocument Released: 01/09/2004 Document Revised: 09/26/2012 Document Reviewed: 10/30/2014ExitCare? Patient Information ?2015 [facility]. This information is not intended to replace [...] poisoning are: ? Medicines, including prescription medicines, ehpz-nwv-wsdyovo pain medicines, vitamins, iron pills, and herbal supplements.? Cleaning or laundry products.? [place] and paint thinner.? Davis or insect killers.? Perfume, hair spray, or nail products.? Alcohol.? Plants, such as philodendron, poinsettia, oleander, castor baker, cactus, and tomato plants.? Batteries.? Furniture hebrew.? Drain peanut shaker.? Antifreeze or other automotive products.? Gasoline, design technician fluid, or lamp oil.? Carbon monoxide gas from furnaces or automobiles.? Toxic fumes from the burning of plastics or certain other materials.WHAT ARE SOME FIRST-AID MEASURES FOR POISONING?The local poison control center must be contacted whenever a person may have been exposed to poison. The poison water pollution control inspector will often give a set of directions [...] to identify the medicine to the poison water pollution control inspector.?? Get away from the area where exposure [...] Keep all dangerous household products (such as design technician fluid, paint thinner and remover, gasoline, and antifreeze) in locked cabinets. ? Do not mix different household chemicals with each other.? Use protective equipment (gloves, goggles, masks, aprons) as needed when using chemicals or peanut shaker.? Install a carbon monoxide detector in [...] to find the number.The local emergency services (632 in [place] must be contacted if a [...] 11/19/2014 Document Reviewed: 06/21/2013ExitCare? Patient Information ?2015 [employer]. This information is not intended to replace [...] 09/26/2012 Document Reviewed: 08/05/2009ExitCare? Patient Information ?2014 [employer]. This information is not intended to replace advice given to you by your health care provider. Make sure you discuss any questions you have with your health care provider.GIACOMO Barrios ALICYN D , have received the following patient education materials/instructions and have verbalized understanding: Patient Education Materials: Suicidal Feelings: How to Help Yourself; Poisoning Information, Adult; Nontoxic Ingestion Follow-up Instructions: With: Address: When: [facility] In 3 days 09/13/2017 Prescriptions: Patient Signature Date Clinician/Nurse Signature Date 09/10/17 15:46:57 [facility] Ethanolon 09-10-2017 Ethanol mass conc mg/dL Normal <=7 [facility] Comment on above: Performed By: #### 2 [id number], 94446121, 6498092 ####[facility] [address] [place] [address] Hep Fun Panelon 09-10-2017 BILIRUBIN.NON-GLUCURO NIDATED:MSCNC:PT:SER/ PLAS:QN: UTC Abnormal 0.1-0.9 [facility] Comment on above: Result Comment: Resu lt verified by Discern Rule. Performed result [facility] (Unable to Calculate) was sent as an Alpha code due the inability to calculate a valid numeric value. Performed By: #### 2 4479445, 81318164, 4611225 ####[place] [address] Bilirubin.direct mass conc mg/dL Normal 0.1-0.4 [facility] Comment on above: Performed By: #### 2 1194951, 54249747, 7573111 ####[place] [address]57 Albumin mass conc 4.7 g/dL Normal 3.3-5.0 [facility] Comment on above: Performed By: #### 2 2668797, 63527920, 6872146 ####[place] [address] Albumin mass conc 1.4 g/dL Normal 1.1-2.2 [facility] Comment on above: Performed By: #### 2 8028638, 44788256, 6973258 ####[place] [address]6057 ALP enzyme act/vol 46 Int._Unit/L Normal 21-98 [facility] Comment on above: Performed By: #### 2 3667967, 21059677, 6330734 ####[place] [address]6057 ALT No additional P-5'-P enzyme act/vol 18 Int._Unit/L Normal 6-46 [facility] Comment on above: Performed By: #### 2 3334220, 25066431, 5686476 ####[address] [address] AST enzyme act/vol 24 Int._Unit/L Normal 5-43 [facility] Comment on above: Performed By: #### 2 2516000, 08701582, 1823634 ####[facility] [address] [place] [address] Bilirubin mass conc 0.6 mg/dL Normal 0.0-1.1 [facility] Comment on above: Performed By: #### 2 1846219, 79084290, 3209555 ####[facility] [address] [place] [address] Globulin Calculated mass conc (S) 3.4 g/dL Normal 1.4-4.0 [facility] Comment on above: Performed By: #### 2 4845694, 44913724, 5017241 ####[place] [address] [place] [address] Protein mass conc 8.1 g/dL High 6.0-7.8 [facility] Comment on above: Performed By: #### 2 7026277, 78379979, 6642999 ####[address] [address] Lipase Levelon 09-10-2017 Lipase enzyme act/vol 17 unit/L Normal 13-[address] [facility] Comment on above: Performed By: #### 2 5592079, 92978314, 0379896 ####[address] [address] Salicylateon 09-10-2017 Salicylates mass conc mg/dL Low 6-[address] [facility] Comment on above: Performed By: #### 2 3271656, 36500467, 2191052 ####[address] [address] U BetaHcg Qualon 09-10-2017 HCG.beta subunit molar conc (U) Negative Normal [facility] Comment on above: Performed By: #### 2 0262672 ####[address] [address] U Drug Screenon 09-10-2017 Amphetamines Screen method >1000 ng/mL Ql (U) Negative Normal Negative [facility] Comment on above: Result Comment: Nega tive Cutoff: <1000 ng/mL Performed By: #### 2 3836845, 41760600, 3968246 ####[facility] [address] [facility] [place] [facility] [place] [address] Barbiturates Screen Ql (U) Negative Normal Negative [facility] Comment on above: Result Comment: Nega tive Cutoff: <200 ng/mL Performed By: #### 2 6420316, 81701307, 1248361 ####[facility] [address] [place] [address] Benzodiazepines Screen Ql (U) Negative Normal Negative [facility] Comment on above: Result Comment: Nega tive Cutoff: <200 ng/mL Performed By: #### 2 4394104, 13774134, 9945621 ####[facility] [address] [place] [address] Cocaine Ql (U) Negative Normal Negative [facility] Comment on above: Result Comment: Nega tive Cutoff: <300 ng/mL Performed By: #### 2 6196146, 28315789, 9068080 ####[facility] [address] [place] [address] Opiates Screen Ql (U) Negative Normal Negative [facility] Comment on above: Result Comment: Nega tive Cutoff: <300 ng/mL Performed By: #### 2 8304939, 74544770, 2195593 ####[facility] [address] [place] [address] Phencyclidine Screen method >25 ng/mL Ql (U) Negative Normal Negative [facility] Comment on above: Result Comment: Nega tive Cutoff: <25 ng/mLThese drug screen results are to be used for medical (i.e., treatment) purposes only. Unconfirmed drug screening results must not be used for non-medical purposes (e.g., employment testing, legal testing). Performed By: #### 2 4081804, 31839001, 6481162 ####[facility] [address] [place] [address] Tetrahydrocannabinol Screen method >50 ng/mL Ql (U) Negative Normal Negative [facility] Comment on above: Result Comment: Nega tive Cutoff: <50 ng/mL Performed By: #### 2 4601093, 80677681, 8176494 ####[facility] [address] [place] [address] eGFRon 09-10-2017 GFR/1.73 sq M predicted among blacks MDRD vol rate/area (S/P/Bld) mL/min/{1.73_m2} Normal >=59 [facility] Comment on above: Order Comment: Order added by Discern Expert. Result Comment: eGFR is race adjusted. AA=. Performed By: #### 2 6643347, 99780679, 1990085 ####[facility] [address] [place] [address] GFR/1.73 sq M predicted among non-blacks MDRD vol rate/area (S/P/Bld) mL/min/{1.73_m2} Normal >=59 [facility] Comment on above: Order Comment: Order added by Discern Expert. Result Comment: Stator Plate Washer lona kidney disease could be indicated at eGFR's of less than 60 mL/min/1.73m2. Kidney failure is indicated at less than 15 mL/min/1.73m2. Performed By: #### 2 1494270, 49490877, 8703783 ####[facility] [address] [place] [address] ED Note-Physicianon 07-12-20 ED Note-Physician Patient: JEREMIE [...] . Impression and Plan Diagnosis Acute UTI ([id number] N39.0, Discharge, Medical) Pharyngitis (AZD77-YI J02.9, Discharge, Medical) Plan Disposition: Discharged: Time [...] the following educational materials: Urinary Tract Infection, Yfqu-kn-Ppid, Urinary Tract Infection, Rvwr-dv-Rcil, Upper Respiratory Infection, Adult, Upper Respiratory Infection, Adult, Urinary Tract Infection, Etfv-tv-Buxj, Upper Respiratory Infection, Adult, Urinary Tract Infection, Kiqm-wu-Kocw. Follow up with: XXXX NONE In 3 days 06/16/2017, XXXX NONE In 3 days 06/16/2017; Follow-up for [address] Atkinson in [facility] In 3 days 06/16/2017. Counseled: Patient, Family, Regarding diagnosis, Regarding diagnostic results, Regarding treatment plan, Regarding prescription, Patient indicated understanding of instructions. [facility] Comment on above: Result Comment: Elec [...] This test was performed at: [facility], [address] [place] [address], [address] [place] [address] [facility] Comment on above: Performed By: #### 2 [id number] ####[facility] [address] [place] [address] C Urineon 06-15-2017 Bacteria identified Cx Nom [...] SSulfaPerforming LocationsR1: This test was performed at: [facility], [address] [place] [address], [id number] , Normal [facility] Comment on above: Performed By: #### 2 [id number], [id number], [id number] ####[facility] [address] [place] [address] Coding Summary.on 06-15-2017 Coding Summary. CODING DATE: 017 FINAL [facility] DSC STATUS: Home (Routine DC) PAYOR: [...] Revised Date Saved: 06/15/2017 04:56 pm Normal [facility] ED Clinical Summaryon 2016 ED Clinical Summary (Inserted Image. Mireya ble to display) [address] [address] ED Clinical SummaryPerson Information Name: YVONNE GOODEN/[facility] Age: 22 Years : 1995 12:00 AM [...] PM 06/13/2017 7:46 PM 06/13/2017 7:46 PM ADDRESS:[address] [place] [address] PHYS DOC NOTES: MEDICAL INFORMATION: Prescriptions Given:Prescription Display cephalexin (Keflex 500 mg Cap) 500 mg = 1 cap(s), Oral, q6hr, X 7 day(s), # 28 cap(s), Refills(s) 0 Home Meds Display ethinyl estradiol-norgestimate (TriNessa oral tablet) Refill(s) 0 fluoxetine (FLUoxetine 10 mg Cap) Refills(s) 0 PATIENT EDUCATION INFORMATION: Instructions:Upper Respiratory Infection, Adult; Urinary Tract Infection, Umrb-xc-Chtf Follow up:With: Address: When: Follow-up for [address] Atkinson in [facility] In 3 days 06/16/2017 With: Address: When: XXXX NONE , [place] In 3 days 06/16/2017 DIAGNOSIS:Acute UTI; Pharyngitis Normal [facility] ED Patient Education Noteon 06-13-2017 ED [...] other symptoms. HOME CARE INSTRUCTIONS? Only take awam-vwr-gbjuxya or prescription medicines for pain, discomfort, or [...] 09/26/2012 Document Reviewed: 10/10/2014ExitCare? Patient Information ?2014 Dakim. This information is not intended to replace [...] 03/29/2013 Document Reviewed: 02/02/2013ExitCare? Patient Information ?2015 [employer]im. This information is not intended to replace advice given to you by your health care provider. Make sure you discuss any questions you have with your health care provider. Normal [facility] ED Patient Summaryon 017 ED Patient Summary (Inserted Image. Mireya ble to display) [place] [id number] Patient Discharge Instructions Person Information Name: YVONNE GOODEN Age: 22 Years Date: 06/13/2017 6:37 PMDischarge Diagnosis: Acute UTI; Pharyngitis Primary Care Physician: NONE, XXXX Provider InformationPrimary Provider: Rony GUZMAN, Costasicilaura [place] Board Member:None The exam and treatment you received in the Emergency Department were for an urgent problem and are not intended as complete care. It is important that you follow up with a doctor, nurse practitioner, or physician?s welder assistant for ongoing care. If your symptoms [...] [address] Atkinson in [facility] In 3 days 06/16/2017 With: Address: When: XXXX NONE , [place] In 3 days 06/16/2017 In the event that this physician does not participate in your insurance network, please consult with your insurance company to find a nearby participating provider. Patient Education Materials:Upper Respiratory Infection, Adult; Urinary Tract Infection, Ryre-nj-Ztms Medications Given:Medication Dose Route cephalexin 500.00 mg Oral Medication Information:New MedicationsPrinted Prescriptionscephalexin (Keflex 500 mg Cap) 1 Capsules By Mouth every 6 hours for 7 Days. Refills: 0.Medications to Continue with No ChangesOther Medicationsethinyl estradiol-norgestimate (TriNessa oral tablet) fluoxetine (FLUoxetine 10 mg Cap) Comment: Pharmacy Information: Thank you for choosing [facility] Patient Education Materials: Upper Respiratory [...] other symptoms. HOME CARE INSTRUCTIONS? Only take hnkv-bwq-ydikjur or prescription medicines for pain, discomfort, or [...] 09/26/2012 Document Reviewed: 10/10/2014ExitCare? Patient Information ?2015 Dakim. This information is not intended to replace [...] 03/29/2013 Document Reviewed: 02/02/2013ExitCare? Patient Information ?2014 Dakim. This information is not intended to replace advice given to you by your health care provider. Make sure you discuss any questions you have with your health care provider.GIACOMO Barrios ALICYN D , have received the following patient education materials/instructions and have verbalized understanding: Patient Education Materials: Upper Respiratory Infection, Adult; Urinary Tract Infection, Iqck-if-Silf Follow-up Instructions: With: Address: When: Follow-up for [address] Atkinson in [facility] In 3 days 06/16/2017 With: Address: When: XXXX NONE , [place] In 3 days 06/16/2017 Prescriptions: [cephalexin (Keflex 500 mg Cap)] Patient Signature Date Clinician/Nurse Signature Date 06/13/17 19:46:34 [facility] U BetaHcg Qualon 06-13-2017 HCG.beta subunit molar conc (U) Negative [facility] Comment on above: Performed By: #### 2 [id number], [id number], [id number] ####[facility] [address] [facility] [place] [address] UA With Cult Reflexon 2016 Bacteria LM Ql (Urine sed) TRACE Normal Trace [facility] Comment on above: Performed By: #### 2 [id number], [id number], [id number] ####[facility] [address] [place] [place] [address] Bilirubin Ql (U) Negative Normal Negative [facility] Comment on above: Performed By: #### 2 [id number], [id number], [id number] ####[facility] [address] [facility] [place] [address] Clarity Nom (U) CLEAR Normal Clear [facility] Comment on above: Performed By: #### 2 [id number], [id number], [id number] ####[facility] [address] [facility] [place] [address] Color Auto Nom (U) STRAW Abnormal Yellow [facility] Comment on above: Performed By: #### 2 [id number], [id number], [id number] ####[facility] [address] [facility] [place] [address] Epithelial cells.squamous LM.HPF #/area (Urine sed) 0-2 Normal 0-2 [facility] Comment on above: Performed By: #### 2 [id number], [id number], [id number] ####[facility] [address] [place] [address] Glucose Test strip mass conc (U) Negative Normal Negative [facility] Comment on above: Performed By: #### 2 [id number], [id number], [id number] ####[facility] [address] [place] [address] Hemoglobin Test strip Ql (U) TRACE Abnormal Negative [facility] Comment on above: Performed By: #### 2 [id number], [id number], [id number] ####[facility] [address] [place] [address] Ketones mass conc (U) Negative Normal Negative [facility] Comment on above: Performed By: #### 2 [id number], [id number], [id number] ####[facility] [address] [place] [address] [place].plasma/Lithiu m.RBC mass ratio (Bld) 0-3 Normal 0-3 [facility] Comment on above: Performed By: #### 2 [id number], [id number], [id number] ####[facility] [address] [place] [address] Mucus LM Ql (Urine sed) 1+ Normal [facility] Comment on above: Performed By: #### 2 [id number], [id number], 8862722 ####[facility] [address] [place] [address] Nitrite Test strip Ql (U) Negative Normal Negative [facility] Comment on above: Performed By: #### 2 [id number], [id number], [id number] ####[facility] [address] [place] [address] pH Test strip (U) 5.5 [pH] Invalid Interpretation Code 5.0-9.0 [facility] Comment on above: Performed By: #### 2 8063080, [id number], [id number] ####[facility] [address] [place] [address] Protein mass conc (U) Negative Normal Negative Fis her [facility] Comment on above: Performed By: #### 2 [id number], [id number], 1928401 ####[facility] [address] [place] [id number] Specific gravity Relative Density (U) 1.020 Invalid Interpretation Code 1.005-1.03 0 [facility] Comment on above: Performed By: #### 2 [id number], [id number], [id number] ####[facility] [address] [place], [place] [address] UA Spec Desc Clean Catch Normal [facility] Comment on above: Performed By: #### 2 [id number], [id number], 8885488 ####[facility] [address] [place], [place] [address] Urobilinogen Test strip Qn (U) 0.2 {Krista'U}/dL Normal 0.0-1.0 [facility] Comment on above: Performed By: #### 2 [id number], [id number], 7386462 ####[facility] [address] [place] [address] WBC Auto Ql (U) 1+ Abnormal Negative [facility] Comment on above: Performed By: #### 2 [id number], [id number], 8656533 ####[facility] [address] [place] [address] WBC LM.HPF #/area (Urine sed) 16-25 Abnormal 0-5 [facility] Comment on above: Performed By: #### 2 1294762, [id number], [id number] ####[facility] [address] [place] [address] Vital Signs Date Time Vital Sign Value Performing Clinician Facility 02-27-2025 09:34-0400 Body mass index (BMI) [Ratio] 24.55 kg/m2 [facility] Work Phone: [facility] 02-27-2025 09:34-0400 Body weight 64.86 kg [facility] Work Phone: [facility] 02-27-2025 09:34-0400 Diastolic blood pressure 70 mm[Hg] Dejan Bipin DO Work Phone: [facility] 02-27-2025 09:34-0400 Systolic blood pressure 118 mm[Hg] Dejan Bipin DO Work Phone: [facility] 01-26-2025 11:25-0400 Body mass index (BMI) [Ratio] 24.72 kg/m2 Bipin Ob [facility] 01-26-2025 11:25-0400 Body weight 65.32 kg Bipin Ob [facility] 01-26-2025 11:25-0400 Diastolic blood pressure 70 mm[Hg] Bipin Ob [facility] 01-26-2025 11:25-0400 Systolic blood pressure 110 mm[Hg] Bipin Ob [facility] 01-02-2025 11:11-0400 Body height 162.6 cm Dejan Bipin DO Work Phone: [facility] 01-02-2025 11:11-0400 Body mass index (BMI) [Ratio] 25.4 kg/m2 Dejan Bipin DO Work Phone: [facility] 01-02-2025 11:11-0400 Body weight 67.13 kg Dejan Bipin DO Work Phone: [facility] 01-02-2025 11:11-0400 Diastolic blood pressure 70 mm[Hg] Dejan Bipin DO Work Phone: [facility] 01-02-2025 11:11-0400 Systolic blood pressure 110 mm[Hg] Dejan Bipin DO Work Phone: [facility] 08-22-2024 15:06-0500 Body mass index (BMI) [Ratio] 26.45 kg/m2 Dejan Bipin DO Work Phone: [facility] 08-22-2024 15:06-0500 Body weight 66.13 kg Dejan Bipin DO Work Phone: [facility] 08-22-2024 15:06-0500 Diastolic blood pressure 60 mm[Hg] Dejan Bipin DO Work Phone: [facility] 08-22-2024 15:06-0500 Systolic blood pressure 118 mm[Hg] Dejan Bipin DO Work Phone: [facility] 10-17-2023 11:50-0400 Body height 162.56 cm MECHANICAL ENGINEERING OFFICER Juan Swartz Work Phone: [facility] 10-17-2023 11:50-0400 Body temperature 97.9 [degF] MECHANICAL ENGINEERING OFFICER Juan Swartz Work Phone: [facility] 10-17-2023 11:50-0400 Body weight 66.1 kg MECHANICAL ENGINEERING OFFICER Juan Swartz Work Phone: [facility] 10-17-2023 11:50-0400 Diastolic blood pressure 60 mm[Hg] MECHANICAL ENGINEERING OFFICER Juan Swartz Work Phone: [facility] 10-17-2023 11:50-0400 Heart rate 91 /min MECHANICAL ENGINEERING OFFICER Juan Swartz Work Phone: [facility] 10-17-2023 11:50-0400 Respiratory rate 16 /min MECHANICAL ENGINEERING OFFICER Juan Swartz Work Phone: [facility] 10-17-2023 11:50-0400 SaO2% (BldA) [Mass fraction] 97 % MECHANICAL ENGINEERING OFFICERAshley Swartz Work Phone: [facility] 10-17-2023 11:50-0400 Systolic blood pressure 126 mm[Hg] MECHANICAL ENGINEERING OFFICER Juan Swartz Work Phone: [facility] Encounters Encounter Date Encounter Type Care Provider Facility Start: 02-27-2025 End: 02-27-2025 Bamboo flowsheet Dejan Bipin DO Work Phone: [facility] Start: 02-27-2025 End: 02-27-2025 Bamboo flowsheet Dejan Bipin DO Work Phone: [facility] Start: 02-27-2025 ambulatory DEJAN BIPIN Not Availa ble Start: 02-27-2025 End: 02-27-2025 flow sheet Dejan Bipin DO Work Phone: [facility] Comment on above: 12 weeks gestation o f ([facility]); First trimester ([facility]); Threatened miscarriage in early ([facility]) Start: 02-27-2025 End: 02-27-2025 ambulatory DEJAN BIPIN Not Available Start: 02-02-2025 End: 02-02-2025 Clinisync Result Encounter Dejan Bipin DO Work Phone: [facility] Unsolicited Start: 02-02-2025 End: 02-02-2025 Clinisync Result Encounter Dejan Bipin DO Work Phone: [facility] Unsolicited Start: 01-26-2025 End: 01-26-2025 Office outpatient visit [...] [facility] Unsolicited Start: 01-02-2025 End: 06-17-2025 Bamboo flowsheet Dejan Bipin DO Work Phone: [...] 11-24-2024 End: 11-24-2024 Clinisync Result Encounter Dejan Ibpin DO Work Phone: [facility] Unsolicited [...] 10-17-2023 End: 10-17-2023 Emergency department patient visit MECHANICAL ENGINEERING OFFICER Juan Swartz Work Phone: [facility] Work Phone: Start: 05-06-2022 End: 05-06-2022 ambulatory DO Juan Cerna Work Phone: [facility] Work Phone: Start: 05-06-2022 End: 05-06-2022 Patient encounter procedure DO Juan Cerna Work Phone: [facility] [place] Start: 02-26-2020 End: 02-27-2020 Patient encounter procedure ROCCO WEBBER Facility: Start: 02-02-2018 End: 02-03-2018 Patient encounter Mirza Cheng Facility:[id number] Start: 01-28-2018 End: 01-29-2018 Patient encounter Mirza Cheng Facility:[id number] Start: 09-10-2017 End: 09-10-2017 Emergency department patient visit XXXX NONE [place] Start: 06-13-2017 End: 06-13-2017 Emergency department patient visit XXXX NONE [place] Procedures Date Procedure Procedure Detail Performing Clinician Start: 02-27-2025 Us preg uterus real time w/image dcmtn transvag Dejan Bipin DO Work Phone: Start: 02-27-2025 Urnls dip stick/tabl et rgnt non-auto w/o micrscp Dejan Bipin DO Work Phone: Start: 02-02-2025 BOX TEST Dejan Fazi o DO Work Phone: Start: 01-26-2025 Urnls dip stick/tabl et rgnt [...] Start: 10-17-2023 Streptococcus pyogen es antigen assay MECHANICAL ENGINEERING OFFICER Juan Swartz Work Phone: Plan of Treatment Date Care Activity Detail Author Start: 02-27-2025 End: 02-27-2025 Patient encounter procedure [facility] Comment on above: Arrived Start: 01-26-2025 End: 01-26-2026 ABO/Rh ABO/Rh Lab Routine Missed menses , unspecified gestational age ([facility]) Expected: 01/26/2025 (Approximate), Expires: 01/26/2026 [facility] Comment on above: Expected: 01/26/2025 (Approximate), Expires: 01/26/2026 Start: 01-26-2025 End: 01-26-2026 Blood type and Indirect antibody screen panel - Blood Type and screen Lab Routine Missed menses , unspecified gestational age ([facility]) Expected: 01/26/2025 (Approximate), Expires: 01/26/2026 [facility] Work Phone: Comment on above: Expected: 01/26/2025 (Approximate), Expires: 01/26/2026 Start: 01-26-2025 End: 01-26-2026 Drugs of abuse panel - Urine by Screen method Rapid drug screen, urine Lab Routine , unspecified gestational age ([facility]) Encounter for supervision of normal first in first trimester ([facility]) Expected: 01/26/2025 (Approximate), Expires: 01/26/2026 [facility] Comment on above: Expected: 01/26/2025 (Approximate), Expires: 01/26/2026 Start: 12-08-2024 End: 12-08-2024 ambulatory 12/08/2024 10:00 AM EDT Initial [facility] [address] [id number] [facility] Start: 12-08-2024 End: 12-08-2024 Professional / ancillary services management 12/08/2024 9:30 AM EDT Ancillary Procedure [facility] [address] [place] [address] [place] [address] [facility] Start: 08-22-2024 End: 08-22-2024 Patient encounter procedure 08/22/2024 2:10 PM EST Office Visit [facility] [address] [place] [address] Dejan Voss, [address] [place] [address] Arrived [facility] Comment on above: Arrived Start: 08-22-2024 End: 08-22-2025 DHEA DHEA Lab Routine PCOS (polycystic ovarian syndrome) Expected: 08/22/2024 (Approximate), Expires: 08/22/2025 [facility] Comment on above: Expected: 08/22/2024 (Approximate), Expires: 08/22/2025 Start: 10-17-2023 SARS-CoV-2, Influenz a & RSV (PCR) SARS-CoV-2, Influenza & RSV (PCR) [facility] Start: 10-17-2023 [facility] Bacteria identified in Urine by Culture Urine culture Microbiology Routine Missed menses Ordered: 01/26/2025 [facility] Comment on above: Ordered: 01/26/2025 CBC W Auto Different ial panel - Blood CBC and differential Lab Routine PCOS (polycystic ovarian syndrome) Ordered: 08/22/2024 [facility] Comment on above: Ordered: 08/22/2024 CBC W Auto Different ial panel - Blood CBC and differential Lab Routine Missed menses , unspecified gestational age ([facility]) Ordered: 01/26/2025 [facility] Comment on above: Ordered: 01/26/2025 DHEA-sulfate DHEA-sulfate Lab Routine PCOS (polycystic ovarian syndrome) Ordered: 08/22/2024 [facility] Comment on above: Ordered: 08/22/2024 Follicle stimulating hormone Follicle stimulating hormone Lab Routine PCOS (polycystic ovarian syndrome) Ordered: 08/22/2024 [facility] Comment on above: Ordered: 08/22/2024 hCG, quantitative, hCG, quantitative, Lab Routine PCOS (polycystic ovarian syndrome) Ordered: 08/22/2024 [facility] Work Phone: Comment on above: Ordered: 08/22/2024 Hemoglobin A1c/Hemoglobin.total in Blood Hemoglobin A1c Lab Routine Hormone imbalance Ordered: 08/22/2024 [facility] Comment on above: Ordered: 08/22/2024 Hemoglobin A1c/Hemoglobin.total in Blood Hemoglobin A1c Lab Routine Missed menses , unspecified gestational age ([facility]) Ordered: 01/26/2025 [facility] Comment on above: Ordered: 01/26/2025 Hepatitis B virus surface Ag [Presence] in Serum or Plasma by Immunoassay Hepatitis B surface antigen Lab Routine Missed menses , unspecified gestational age ([facility]) Ordered: 01/26/2025 [facility] Comment on above: Ordered: 01/26/2025 Hepatitis C virus Ab [Presence] in Serum or Plasma by Immunoassay Hepatitis C antibody Lab Routine Missed menses , unspecified gestational age ([facility]) Ordered: 01/26/2025 [facility] Comment on above: Ordered: 01/26/2025 HIV-1/HIV-2 antigen/antibody combination immunoassay HIV-1 and HIV-2 antibodies Lab Routine Missed menses , unspecified gestational age ([facility]) Ordered: 01/26/2025 [facility] Comment on above: Ordered: 01/26/2025 Luteinizing hormone Luteinizing hormone Lab Routine PCOS (polycystic ovarian syndrome) Ordered: 08/22/2024 [facility] Comment on above: Ordered: 08/22/2024 Patient Education Strep Throat (DC) [facility] Work Phone: Patient referral [facility] Work Phone: Progesterone Progesterone Lab Routine Hormone imbalance Ordered: 08/22/2024 [facility] Comment on above: Ordered: 08/22/2024 Reagin Ab [Presence] in Serum by RPR RPR Lab Routine Missed menses , unspecified gestational age ([facility]) Ordered: 01/26/2025 [facility] Comment on above: Ordered: 01/26/2025 Rubella antibody, IgG Rubella an tibody, IgG Lab Routine Missed menses , unspecified gestational age ([facility]) Ordered: 01/26/2025 [facility] Comment on above: Ordered: 01/26/2025 Thyrotropin [Units/volume] in Serum or Plasma TSH Lab Routine PCOS (polycystic ovarian syndrome) Ordered: 08/22/2024 [facility] Comment on above: Ordered: 08/22/2024 Thyroxine (T4) free [Mass/volume] in Serum or Plasma T4, free Lab Routine PCOS (polycystic ovarian syndrome) Ordered: 08/22/2024 [facility] Comment on above: Ordered: 08/22/2024 Payers Date Payer Category Payer [facility] [id number] 2025 Unknown [id number] 2021 Private Health Insurance [facility] [id number] 2021 Unknown [id number] 2017 Self-pay 1995 Unknown [id number]. 2.593 1997 Unknown [id number] [id number]. 2.1258 1997 Unknown [id number] [id number]. 2.1258 1997 Unknown [id number] 2.16.840.1.281006.3.579. 2.1258 1997 Unknown [id number] 2.16.840.1.047126.3.579. 2.9 1997 Unknown [id number] 2.16.840.1.486295.3.579. 2.9 1997 Unknown [id number] 2.16.840.1.135289.3.579. 2.1259 1997 Unknown [id number] [id number]. 2.1259 1959 Unknown [id number] Private Health Insurance [facility] [id number] Unknown Valerie BC/BS [id number] Unknown [id number] [id number]. 2.531 Social History Date Type Detail Facility Tobacco smoking stat [facility] Unknown if ever smoked [facility] Work Phone: Start: 1995 Sex Assigned At Female F [facility] Start: 02-07-2023 End: 10-17-2023 Tobacco smoking status LAIS Never smoked tobacco (finding) [facility] Start: 07-13-2023 End: 02-27-2025 Alcoholic beverage intake Current drinker of alcohol [...] 12-15-2024 [facility] NEGATED: Highlighted row [facility] History of Present illness Narrative 02-27-2025 Ana Cristina Romero, SENIOR INFORMATICA DEVELOPER - 02/27/2025 9:20 AM EDT Note Date & Type Note Facility 02-27-2025 History of Presen t illness Narrative Reason [...] nursing note reviewed. Exam conducted with a clubhouse attendant present. Vitals: Estimated body mass index is 24.55 kg/m as calculated from the following: Height as of 01/02/25: 5' 4 . Weight as of this encounter: 143 lb. BP: 118/70 No LMP recorded (lmp unknown). Patient is . ASSESSMENT & PLAN ICD-10-CM 1. 12 weeks gestation of ([facility]) Z3A.12 POCT urinalysis dipstick manually resulted 2. First trimester ([facility]) Z34.91 POCT urinalysis dipstick manually resulted [...] Dejan Voss DO documented in this encounter [facility] History of Present illness Narrative 01-26-2025 Raysa [...] dipstick manually resulted , unspecified gestational age ([facility]) - Type and screen; Future - ABO/Rh; Future - CBC and differential - Hemoglobin A1c - RPR - Rubella antibody, IgG - Hepatitis B surface antigen - Hepatitis C antibody - HIV-1 and HIV-2 antibodies - Rapid drug screen, urine; Future Encounter for supervision of normal first in first trimester ([facility]) - Rapid drug screen, urine; Future 8 weeks gestation of ([facility]) H/O hypotension Nurse Note: Pt desires [place] billion to one. Pt was advised to [...] or undercooked meat, and stay away from [facility]. Patient has also been advised to not [...] Sheikh MA documented in this encounter [facility] History of Present illness Narrative 01-02-2025 Ana Cristina Romero LPN - 01/02/2025 10:50 AM EDT Note Date [...] nursing note reviewed. Exam conducted with a clubhouse attendant present. Vitals: Estimated body mass index is 25.4 kg/m as calculated from the following: Height as of this encounter: 5' 4 . Weight as of this encounter: 148 lb. BP: 110/70 No LMP recorded (lmp unknown). ASSESSMENT & PLAN ICD-10-CM 1. Miscarriage ([facility]) O03.9 POCT urinalysis dipstick manually resulted Patient [...] nursing note reviewed. Exam conducted with a clubhouse attendant present. Vitals: Estimated body mass index is [...] Facility Evaluation note No assessment information availa [facility] Work Phone: Evaluation note Note Date & Type Note Facility Evaluation note Diagnosis Encounter for fertility planning PCOS (polycystic ovarian syndrome) Polycystic ovaries Hormone imbalance documented in this encounter [facility] Evaluation note Note Date & Type Note Facility Evaluation note Diagnosis Miscarriage ([facility]) Unspecified spontaneous without mention of complication documented in this encounter [facility] Evaluation note Note Date & Type Note Facility Evaluation note Diagnosis Amenorrhea Absence of menstruation Missed menses , unspecified gestational age ([facility]) Encounter for supervision of normal first in first trimester ([facility]) 8 weeks gestation of ([facility]) H/O hypotension documented in this encounter [facility] Evaluation note Note Date & Type Note Facility Evaluation note Diagnosis 12 weeks gestation of ([facility]) First trimester ([facility]) state, incidental Threatened miscarriage in early ([facility]) documented in this encounter [facility] Summary [...] section and content) DATE CREATED AUTHOR 02/16/2018 [facility] DATE CREATED AUTHOR AUTHOR'S ORGANIZ ATION 03/06/2020 [facility] DATE CREATED AUTHOR AUTHOR'S ORGANIZ ATION 01/02/2024 [facility] DATE CREATED AUTHOR AUTHOR'S ORGANIZ ATION 02/28/2025 [facility] d[facility] Specialists EPIC Care Teams (unrecognized sec [...] October 17, 2023 End: October 17, 2023 Medical Education Manager Relationship Specialty Start Date End Date Gregorio Garcia MD [address] [place] [facility] [place] [address] PCP - General Family Medicine 10/18/23 Medical Education Manager Relationship Specialty Start Date End Date Gregorio Garica MD [address] [place] [facility] [address] PCP - General Family Medicine 10/18/23 Medical Education Manager Relationship Specialty Start Date End Date Gregorio Garcia MD [address] [place] [address] PCP - General Family Medicine 10/18/23 Medical Education Manager Relationship Specialty Start Date End Date Gregorio Garcia MD PCP - General Family Medicine 10/18/23 Medical Education Manager Relationship Specialty Start Date End Date Gregorio Garcia MD [address] [place] [address] PCP - General Family Medicine 10/18/23 Medical Education Manager Relationship Specialty Start Date End Date Gregorio Garcia MD [address] [place] [address] PCP - General Family Medicine 10/18/23 Medical Education Manager Relationship Specialty Start Date End Date Gregorio Garcia MD [address] [place] [address] PCP - General Family Medicine 10/18/23 Medical Education Manager Relationship Specialty Start Date End Date Gregorio Garcia MD [address] [facility] [place] [address] PCP - General Family Medicine 10/18/23 Goals (unrecognized section and content) Goals may be documented in a n alternate sectionGoals may be documented in an alternate section Reason for Visit (unrecogniz ed section and content) Reason Comments Fertility Consult Breast Pain Reason Comments Miscarriage Pt present today to discuss recent miscarriage. Reason Comments Amenorrhea Reason Comments Routine Visit FOR RECORDS PERTAINING TO PATIENTS WHO ARE [...] BE BASED ON THE PRIMARY CLINICAL RECORDS. [employer] provides no warranty or guarantee of the accuracy or completeness of information in this document.
--- OUTSIDE RECORDS SUMMARY | 2025-03-01 07:06 | XMS_ITS | Encounter Summary ---
Author Organization [facility] Address [address] [place] [address] Care Team Providers Care Guide Domestic Tour Name Role Phone Gregorio Garcia MD Primary Care Provider [phone] Encounter Details Date Type Department Care Team (Late st Contact Info) Description 02/22/2025 Abstract [facility] [address] 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
--- NOTE | 2025-03-01 07:59 | US_ITS ---
[address] [address] Patient Name: CARINA CANALES MRN: [id number] date: 1995 Sex: F Assigned Patient Location: [facility] Current Patient Location: [facility] Accession/Order Number: [id number] Exam Date: 03/01/2025 08:52 Report Date: 03/01/2025 08:57 At the request of: DEJAN LARSON DO Procedure: US OB limited OB ultrasound. Reason for exam: demise. Comparison:Ultrasound 11/22/2024 Technique: Transabdominal imaging of the gravid uterus was obtained. Findings: Intrauterine is present measuring 12 weeks 6 days by CRL. No heart rate is identified. No free fluid is seen. US/US OB limited Impression: Intrauterine 12 weeks 6 days by CRL without heart rate. demise is suspected. Correlation with beta-hCG trend is recommended. Findings of the study were relayed to the patient's nurse by the medical technologist clinical. Impression dictated by: Brent Jonas Jr., D.O. 03/01/2025 8:57 AM Dictation Location: [place] [address] Electronically authenticated by: [id number] Y Date: 03/01/2025 08:57
[2025-03-01 08:01] LABS: Hematocrit 37.8 % (36.0-48.0); Hemoglobin 13.5 g/dL (12.0-16.0); Immature Granulocytes Abs Auto 0.01 10^3/uL (0.00-0.03); Immature Granulocytes Pct Auto 0.2 % (0.0-0.5); Lymphocytes Absolute Auto 2.0 10^3/uL (1.2-3.8); Mean Corpuscular HGB Conc 35.7 g/dL (29.9-35.2); Mean Corpuscular Hemoglobin 31.5 pg (26.7-34.0); Mean Corpuscular Volume 88.3 fL (81.0-99.0); Platelet Count 251 10^3/uL (150-450); Red Blood Count 4.28 10^6/uL (4.20-5.40); White Blood Count 6.2 10^3/uL (4.0-11.0)
[2025-03-01 08:17] LABS: INR 0.99; Partial Thromboplastin Time 29.5 sec (22.3-36.2); Prothrombin Time 10.5 sec (9.0-11.6)
[2025-03-01 08:19] LABS: Fibrinogen 281 mg/dL (200-400)
[2025-03-01] MEDS: MISOPROSTOL 100 MCG TABLET 400 MCG VAGINAL ×3 (08:28→14:29)
[2025-03-01] MEDS: ACETAMINOPHEN 500 MG TABLET 1000 MG PO (14:25)
--- NOTE | 2025-03-01 16:47 | PM.ONB ---
Brief Operative Note Date of procedure: 03/01/25 Pre-op diagnosis general: retained products of conception Post-op diagnosis: same as pre-op Procedure: NAME OF PROCEDURE: [D&C suction ] PROCEDURE: The patient was taken back to the OR where she was given general anesthesia without difficulty. She was then placed in dorsal lithotomy position, prepped and draped in the normal sterile fashion. A weighted speculum was placed in the patient's vagina and the anterior lip of the cervix was identified and grasped with a single-tooth tenaculum. The patient was then gently dilated using Hegar dilators after we had sounded roughly to 12 cm. The suction curette was then tested. The suction curette was then placed in the patient's uterus and products of conception were removed using an 10-St Lucian suction curette. ?Excellent hemostasis was noted. The patient tolerated the procedure well. Sponge, lap, and needle counts were correct x 2. All instruments were then removed from the patient's vagina. The patient was taken to the Recovery Room in stable condition. ?? Anesthesia: MAC Surgeon: Juan Voss Estimated blood loss (mL): 10 Pathology: other (poc) Condition: stable Disposition: PACU
--- NOTE | 2025-03-05 10:32 | CM.NOTE ---
Daisy Simmons called from [facility] to give update of pt's inpatient status. Pt is registered as self-pay. Called Ab[employer] anderson, shows no active coverage. Message was left with pt on 03/02 with no return call from pt.
== END 2025-03-01 22:25 | disposition home or self-care (01) | DRG 819 ==
PROVIDERS: Admitting Provider Obstetrics & Gynecology; PCP Family Medicine; Visit Provider Obstetrics & Gynecology
PROC: 10D17ZZ Extraction of Products of Conception, Retained, Via Natural or Artificial Opening (ICD-10-PCS; 2025-03-01 16:30)
DX: O36.4XX0 Maternal care for intrauterine death, not applicable or unspecified (principal); Z3A.12 12 weeks gestation of pregnancy
CPT/HCPCS: 36415; 59410; 76815; 81241; 81291; 85025; 85300; 85384; 85610; 85730; 86644; 86645; 86747; 86777; 86778; 86850; 86900; 86901; 88300; 88305; J0330; J1100; J1200; J1885; J2590; J2704; J3010

== ENCOUNTER 2025-04-05 06:30 | Outpatient (OUT) | payer BC, SELFPAY ==
--- OUTSIDE RECORDS SUMMARY | 2024-06-12 07:10 | XMS_ITS ---
Author Organization [facility] Address [address] [place] [address] Care Team Providers Care Print Support Specialist Name Role Phone Gregorio Garcia Primary Care Provider Dane Chowdhury [facility] [phone] Results Component Value Reference Range Notes SCC- WRIST 3 VIEW RIGHT 7311 0 Reviewed date:07/25/2024 12:42:11 PM Interpretation: Performing Lab: Notes/Report: SCC- WRIST 3 VIEW LEFT [address]3026 Reviewed date:07/25/2024 12:42:17 PM Interpretation: Performing Lab: Notes/Report: REASON FOR VISIT BILAT WRIST GANGLION CYST Encounters Encounter Location Date Provider Diagnosis [facility] [facility] [address] [place] [address] [place] [address] [place] [address] 06/12/2024 Dane Cordova Pain in right wrist M25.531 and Pain in left wrist M25.532 Assessments Encounter Date Diagnosis (ICD Code) Assessment Notes Treatment Notes Treatment Clinical Notes Section Notes 06/12/2024 Pain in right wrist (ICD-10 - M25.531) 06/12/2024 Pain in left wrist (ICD-10 - M25.532) Plan Of Treatment No Information Progress Notes * CARINA CANALES DDOB: [birth year] (30 yo F)Acc No.[id number]:06/12/2024 Patient: Bisi CARINA DARBY Provider: Bisi Cordova MD :1995 A ge:29 Y S ex:Female Date:06/12/2024 Address:[address] [id number] Pcp:Gregorio Garcia Subjective: * Chief Complaints: * 1 . BILAT WRIST GANGLION CYST. * Medical History: Objective: * Vitals: Assessment: * Assessment: 1. P ain in right wrist - M25.531 2 . P ain in left wrist - M25.532 ? Plan: * Treatment: 2. P ain in left wrist I maging: SCC- WRIST 3 VIEW LEFT 53141 (Performed Date - 07/25/2024) Forms: * Images: * Electronic signature of Yusuf Cordova MD on 04/05/2025 at 06:35 AM EDT Sign off status: Pending * Provider: Bisi Cordova MD Date: 1 08/12/2023 Generated for Kaushik almanza/Bernice/Johnitting on: 0 04/05/2025 06:35 AM EDT
--- OUTSIDE RECORDS SUMMARY | 2025-02-27 09:20 | XMS_ITS | Encounter Summary ---
Author Organization [facility] Address [address] [place] [address] Care Team Providers Care Events Director Name Role Phone Gregorio Garcia MD Primary Care Provider [phone] Juan Cerna DO Primary Care Provider + [phone] Reason for Visit * Reason Comments Routine Visit Encounter Details Date Type Department Care Team (Late st Contact Info) Description 02/27/2025 9:20 AM EDT Routine [facility] [address] [address] Juan Voss DO [address] [place] [address] 12 weeks gestation of ([facility] First trimester ([facility]); Threatened miscarriage in early ([facility]) Social History Tobacco Use Types Packs/Day [...] on one occasion? 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 Question Answer Date of Assessment Author Little interest or pleasure in doing things Not at all 03/15/2025 1:48 PM EDT Alexandra Campuzano MA Feeling down, depressed, or hopeless Nearly every day 03/15/2025 1:48 PM EDT Verónica Campuzano MA Patient Health Questionnaire-2 Score 3 03/15/2025 1:48 PM EDT Amor Campuzano MA * Question Answer Date of Assessment Author Trouble falling or staying asleep, or sleeping too much Not at all 03/15/2025 1:48 PM EDT Verónica Campuzano MA Feeling tired or having little energy Not at all 03/15/2025 1:48 PM EDT Verónica Campuzano MA Poor appetite or overeating Not at all 03/15/2025 1:48 PM EDT Verónica Campuzano MA Feeling bad about yourself - or that you are a failure or have let yourself or your family down Nearly every day 03/15/2025 1:48 PM EDT Verónica Campuzano MA Trouble concentrating on things, such as reading the newspaper or watching television Several days 03/15/2025 1:48 PM EDT Verónica Campuzano MA Moving or speaking so slowly that other people could have noticed? Or the opposite - being so fidgety or restless that you have been moving around a lot more than usual. Nearly every day 03/15/2025 1:48 PM EDT Verónica Campuzano MA Thoughts that you would be better off or hurting yourself in some way Not at all 03/15/2025 1:48 PM EDT Verónica Campuzano MA Patient Health Questionnaire-9 Score 10 03/15/2025 1:48 PM EDT Aomr Campuzano MA documented as of this encounter Progress Notes * Ana Cristinahoda Romero, BNADAR - 02/27/2025 9:20 AM EDT Reason for [...] nursing note reviewed. Exam conducted with a fern cutter present. Vitals: Estimated body mass index is 24.55 kg/m?? as calculated from the following: Height as of 01/02/25: 5' 4 . Weight as of this encounter: 143 lb. BP: 118/70 No LMP recorded (lmp unknown). Patient is . ASSESSMENT & PLAN ICD-10-CM 1. 12 weeks gestation of ([facility]) Z3A.12 POCT urinalysis dipstick manually resulted 2. First trimester ([facility]) Z34.91 POCT urinalysis dipstick manually resulted New [...] Care Team (Late st Contact Info) Description 04/18/2025 5:20 PM EDT Office Visit [facility] [address] [place] [address] Juan Cerna DO [address] [place] [address] documented as of this encounter Procedures Procedure Name Priority Date/Time Associated Diagnosis Comments US OB TRANSVAGINAL Routine 02/27/2025 11 :34 AM EDT Threatened miscarriage in early ([facility]) POCT URINALYSIS DIPSTICK Routine 02/27/2025 9:41 AM EDT 12 weeks gestation of ([facility]) First trimester ([facility]) documented in this encounter Results * [...] Brent Moore MD us Juan Bipin DO IM OB US PROCEDURES Final Resul t * [...] Negative - 1999(20) ++++ mg/dL Urobilinogen, UA 1.0 0.2 - 12 mg/dL Leukocytes, UA Positive Negative - 500+++ Gilbert/mcL Comment:3+ Nitrite, UA Negative Negative - Positive Urine 02/27/2025 9:41 AM EDT Juan Voss DO POINT OF CARE TEST ENTER/EDIT OR DERABLES Final Result documented in this encounter Visit Diagnoses Diagnosis 12 weeks gestation of ([facility]) First trimester ([facility]) state, incidental Threatened miscarriage in early ([facility]) documented in this encounter Care Teams Events Director Relationship Specialty Start Date End Date Gregorio Garcia MD [address] [place] [address] PCP - General Family Medicine 10/18/23 03/14/25 Juan Cerna DO [address] [facility] [address] [place] [address] PCP - General Family Medicine 03/15/25 documented as of this encounter
--- NOTE | 2025-04-05 06:35 | NM_ITS ---
The [address] [address] Patient Name: CARINA CANALES MRN: [id number] date: 1995 Sex: F Assigned Patient Location: [place] Current Patient Location: Accession/Order Number: [id number] Exam Date: 04/05/2025 06:35 Report Date: 04/06/2025 08:05 At the request of: TOÑO CHILDS MD Procedure: NM thyroid w uptake THYROID UPTAKE AND SCINTIGRAM CLINICAL DATA: Family history of thyroid disease COMPARISON: None Following the oral ingestion of 0.283 mCi of I-123, thyroid uptakes were measured at 6 hours and 24 hours. These measurements are 15% and 28% respectively. These values are borderline high with normal range at 6 hours of 0 - 14% and at 24 hours 10 - 30%. Gamma camera imaging was also performed in multiple projections. The thyroid lobes are within normal limits for size. Uptake on the right is slightly greater than the left at the mid to lower pole. No obvious cold nodules are seen. NM/NM thyroid w uptake IMPRESSION: BORDERLINE ELEVATED THYROID UPTAKE VALUES. CORRELATION WITH LABORATORY DATA IS SUGGESTED. Impression dictated by: Ana Cristina Olguin M.D. 04/06/2025 8:05 AM Dictation Location: [place] [address] Electronically authenticated by: [id number] Y Date: 04/06/2025 08:05
--- OUTSIDE RECORDS SUMMARY | 2025-04-05 06:35 | XMS_ITS | Encounter Summary ---
Author Organization [facility] Address [address] [place] [address] Care Team Providers Care Heater Worker Name Role Phone Juan Cerna DO Primary Care Provider + [phone] Gregorio Garcia MD Primary Care Provider + Juan Cerna DO Primary Care Provider + [phone] Encounter Details Date Type Department Care Team (Late Contact Info) Description 05/17/2023 Abstract [facility] [address] [facility] [address] [place] [address] Juan Cerna DO [address] [facility] [address] [place] [address] Social History Tobacco Use Types Packs/Day Years [...] at [facility] in [place], [place]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 documented as of this encounter Plan of Treatment Upcoming Encounters Date Type Department Care Team (Late Contact Info) Description 04/18/2025 5:20 PM EDT Office Visit [facility] [place] [facility] [address] [facility] [address] [place] [address] Juan Cerna DO [address] [place] [address] documented as of this encounter Visit Diagnoses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documented in this encounter Care Teams Heater Worker Relationship Specialty Start Date End Date Juan Cerna DO [address] [place] [address] PCP - General Family Medicine 02/02/23 10/17/23 Gregorio Garcia MD [address] [place] [address] PCP - General Family Medicine 10/18/23 03/14/25 Juan Cerna DO [address] [facility] [address] [place] [address] PCP - General Family Medicine 03/15/25 documented as of this encounter
--- OUTSIDE RECORDS SUMMARY | 2025-04-05 06:35 | XMS_ITS | Encounter Summary ---
Author Organization [facility] Address [address] [place] [address] Care Team Providers Care Founder / Ceo Name Role Phone Gregorio Garcia MD Primary Care Provider [phone] Juan Cerna DO Primary Care Provider + [phone] Encounter Details Date Type Department Care Team (Late st Contact Info) Description 12/13/2024 Abstract [facility] [address] [place] [address] Juan Voss DO [address] 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 documented as of this encounter Plan of Treatment Upcoming Encounters Date Type Department Care Team (Late st Contact Info) Description 04/18/2025 5:20 PM EDT Office Visit [facility] [place] [facility] [address] [place] [address] Juan Cerna DO [address] [place] [address] documented as of this encounter Visit Diagnoses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documented in this encounter Care Teams Founder / Ceo Relationship Specialty Start Date End Date Gregorio Garcia MD [address] [place] [address] PCP - General Family Medicine 10/18/23 03/14/25 Juan Cerna DO [address] [place] [address] PCP - General Family Medicine 03/15/25 documented as of this encounter
--- OUTSIDE RECORDS SUMMARY | 2025-04-05 06:35 | XMS_ITS | Encounter Summary ---
Author Organization [facility] Address [address] [place] [address] Care Team Providers Care Well Service Floor Worker Name Role Phone Juan Cerna DO Primary Care Provider [phone] Encounter Details Date Type Department Care Team (Latest Contact Info) Description 03/22/2025 Results Follow-Up [facility] [address] [facility] [address] [place] [address] Juan Cerna DO [address] [facility] [address] [place] [address] Tsh+free t4, Thyroid peroxidase and thyroglobulin antibodies Social History Tobacco Use Types Packs/Day Years Used Date Smoking Tobacco: Never Smokeless Tobacco: Never Alcohol Use Standard Drinks/Week Comments [...] Patient Health Questionnaire-2 Score 3 03/15/2025 Comments No Sex and Gender Information Value Date Recorded Sex Assigned at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 Legal Sex Female 6:49 PM EDT Gender Identity Female 09/30/2022 6:49 PM EDT Sexual Orientation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[place], [place]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 documented as of this encounter Plan of Treatment Upcoming Encounters Date Type Department Care Team (Late st Contact Info) Description 04/18/2025 5:20 PM EDT Office Visit [facility] [address] [place] [address] Juan Cerna DO [address] [place] [address] documented as of this encounter Visit Diagnoses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documented in this encounter Additional Health Concerns Assessment Noted Time PHQ-9 Depression Total Score: 10 025 1:48 PM EDT documented as of this encounter Care Teams Well Service Floor Worker Relationship Specialty Start Date End Date Juan Cerna DO [address] [place] [address] PCP - General Family Medicine 03/15/25 documented as of this encounter
--- OUTSIDE RECORDS SUMMARY | 2025-04-05 06:35 | XMS_ITS | Encounter Summary ---
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[place], [place]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 documented as of this encounter Plan of Treatment Upcoming Encounters Date Type Department Care Team (Late st Contact Info) Description 04/18/2025 5:20 PM EDT Office Visit [facility] [place] [facility] [address] [facility] 230 [place] [address] Juan Cerna DO [address] [facility] [address] [place] [address] documented as of this encounter Visit Diagnoses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documented in this encounter Care Teams Business Development Professional Relationship Specialty Start Date End Date Juan Cerna DO [address] [facility] [address] [place] [address] PCP - General Family Medicine 02/02/23 10/17/23 Gregorio Garcia MD [address] [place] [address] PCP - General Family Medicine 10/18/23 03/14/25 Juan Cerna DO [address] [facility] [address] [place] [address] PCP - General Family Medicine 03/15/25 documented as of this encounter
--- OUTSIDE RECORDS SUMMARY | 2025-04-05 06:35 | XMS_ITS | Clinical Summary ---
Author Organization [facility] Address [address] [place] [address] Care Team Providers Care Savings Counselor Name Role Phone Juan Cerna DO Primary Care Provider Allergies Active Allergy Reactions Criticality Noted Date Comments Bee Venom Anaphylaxis High 02/09/2023 Honey Bee Venom Anaphylaxis High 10/17/2023 Other Reaction(s): Unknown Reaction Medications ondansetron ODT (Zofran-ODT) 4 MG disintegrating tabletIndications: Nausea and vomiting in ([facility]) TAKE 1 TABLET BY MOUTH EVERY 6 HOURS 120 tablet 02/06/20 25 Active Additional Information Patient not taking.Reported on 03/15/2025 ALPRAZolam (Xanax) 0.25 MG tablet TAKE 1-2 TABLETS BY MOUTH AT BEDTIME FOR 7 DAYS NEEDED, RECOMMEND TRYING 2 TABLETS AT BEDTIME 02/28/20 25 Active escitalopram (Lexapro) 5 MG tabletIndications: Moderate episode of recurrent major depressive disorder (HCC),Generalized anxiety disorder Take 1 tablet (5 mg) by mouth Daily 30 tablet 1 03/15/20 25 Active Active Problems Problem Noted Date Diagnosed Date Moderate episode of recurrent major depressive d isorder 03/15/2025 Mild episode of recurrent major depressive disor ai 03/15/2025 Anxiety disorder 03/15/2025 Resolved Problems Problem Noted Date Diagnosed Date Resolved Date Vaginal high risk human anna llomavirus (HPV) DNA test positive 03/15/2025 03/15/2025 Subacute vaginitis 03/15/2025 Dysmenorrhea 03/15/2025 03/15/2025 Ganglion cyst 03/15/2025 03/15/2025 Encounters Date Type Department Care Team Description 03/29/2025 Abstract [facility] [address] [place] [address] Dejan Voss DO 03/22/2025 Results Follow-Up [facility] [address] [place] [phone] Juan Cerna, DO Tsh+free t4, Thyroid peroxidase and thyroglobulin antibodies 03/21/2025 8:00 AM EDT Office Visit [facility] [address] [place] [address] Dejan Voss, Spontaneous miscarriage ([facility]) 2025 Telephone [facility] [address] [place] [phone] Susan Orourke MA 03/15/2025 2:00 PM EDT Office Visit [facility] [address] [place] [phone] Juan Cerna, DO Moderate episode of recurrent major depressive disorder (HCC) (Primary Dx); Generalized anxiety disorder 03/15/2025 Bamboo flowsheet [facility] [address] [place] [phone] Juan Cerna, 03/15/2025 Travel 03/08/2025 Telephone [facility] [address] [place] [address] Areli Bazan MA 03/08/2025 Telephone [facility] [address] [place] [address] Raysa Sheikh MA 03/07/2025 Abstract [facility] [address] [place] [phone] Dejan Voss DO 03/01/2025 Clinisync Result Encounter [facility] External Department Unsolicited Dejan Voss, 03/01/2025 Clinisync Result Encounter [facility] External Department Unsolicited Dejan Voss, 02/27/2025 11:00 AM EDT Ancillary Procedure [facility] [address] [place] [address] 02/27/2025 9:20 AM EDT Routine [facility] [address] [place] [phone] Dejan Voss, 12 weeks gestation of ([facility]); First trimester ([facility]); Threatened miscarriage in early ([facility]) 02/27/2025 Bamboo flowsheet [facility] [address] [place] [phone] Dejan Voss, 02/22/2025 Abstract [facility] [address] [place] [phone] Shanti Chicas MA 02/04/2025 Refill [facility] [address] [place] [phone] Dejan Voss, Nausea and vomiting in ([facility]) 02/02/2025 Clinisync Result Encounter [facility] External Department Unsolicited Dejan Voss, 01/30/2025 Refill [facility] [address] [place] [phone] Shayna Munguia LPN History of miscarriage 01/26/2025 10:30 AM EDT Initial [facility] [address] [facility] [place] [phone] GA: 8w0d 01/26/2025 10:00 AM EDT Ancillary Procedure [facility] [address] [facility] [place] [place] [address] Missed menses; Baseline heart rate range 100 to 120 beats per minute ([facility]) 01/10/2025 10:00 AM EDT Ancillary Procedure [facility] [address] [place] [address] Missed menses 01/08/2025 Telephone [facility] [address] [address] Raysa Sheikh, [place] 01/08/2025 Telephone [facility] [address] [address] Raysa Sheikh, [place] 01/08/2025 Clinisync Result Encounter [facility] External Department Unsolicited Dejan Voss, DO 01/06/2025 Clinisync Result Encounter [facility] External Department Unsolicited Dejan Voss, DO 01/04/2025 Telephone [facility] [address] [place] [address] Shayna Munguia LPN from Last 3 [...] Date Smoking Tobacco: Never Smokeless Tobacco: Never Tobacco Cessation:Counseling Given: Yes Alcohol Use Standard Drinks/Week Comments Yes 0 [...] 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[place], [place]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 Last Filed Vital Signs Vital Sign Reading Time Taken Comments Blood Pressure 110/74 03/15/2025 1:54 PM EDT Pulse 73 03/15/2025 1:54 PM EDT Temperature 36.4 C (97.6 F) 03/15/2025 1:54 PM EDT Respiratory Rate - - Oxygen Saturation 97% 03/15/2025 1:54 PM EDT Inhaled Oxygen Concentration - - Weight 63.9 kg (140 lb 12.8 oz) 03/15/2025 1:54 PM EDT Height 162.6 cm (5' 4 ) 03/15/2025 1:54 PM EDT Body Mass Index 24.17 03/15/2025 1:54 PM EDT Plan of Treatment Upcoming Encounters Date Type Department Care Team (Late st Contact Info) Description 04/18/2025 5:20 PM EDT Office Visit [facility] [address] [place] [phone] Juan Cerna DO [address] [place] [address] Health Maintenance Due Date Last Done Comments Influenza Vaccine (#1) 2025 04/23/2021, 2018, 07/26/2018 Procedures Procedure Name Priority Date/Time Associated Diagnosis Comments THYROID PEROXIDASE AND THYROGLOBULIN ANTIBODIES Routine 2025 4:37 PM EDT Moderate episode of recurrent major depressive disorder (HCC) Generalized anxiety disorder TSH+FREE T4 Routine 2025 4:37 PM EDT Moderate episode of recurrent major depressive disorder (HCC) Generalized anxiety disorder US OB LIMITED 1+ FETUSES 03/01/2025 8:57 AM EDT [facility]RO MTHFR GENE ANALYSIS Routine 03/01/2025 7:49 AM EDT FACTOR V LEIDEN MUTATION Routine 03/01/2025 7:49 AM EDT ALL MISCELLANEOUS TEST Routine 03/01/2025 7:49 AM EDT TBH ANTITHROMBIN ACTIVITY Routine 03/01/2025 7:49 AM EDT MHPT FIBRINOGEN Routine 03/01/2025 7:49 AM EDT CCF APTT Routine 03/01/2025 7:49 AM EDT [facility] PROTHROMBIN TIME INR W/O COUM Routine 03/01/2025 7:49 AM EDT ALL CBC WITH AUTO DIFF Routine 03/01/2025 7:49 AM EDT CULTURE, URINE, ROUTINE Routine 02/27/2025 4:15 PM EDT Missed menses US OB TRANSVAGINAL Routine 02/27/2025 11 :34 AM EDT Threatened miscarriage in early ([facility]) POCT URINALYSIS DIPSTICK Routine 02/27/2025 9:41 AM EDT 12 weeks gestation of ([facility]) First trimester ([facility]) HBSAG SCREEN Routine 02/02/2025 9:55 AM EDT [...] range 100 to 120 beats per minute ([facility]) US OB TRANSVAGINAL High Priority 01/10/2025 10 :41 AM EDT Missed menses TBH PREG QUANT HCG Routine 01/08/2025 8: 13 AM EDT TBH PREG QUANT HCG Routine 01/06/2025 8: 32 AM EDT from Last 3 Months Results * Tsh+free t4 (2025 4:37 PM EDT) TSH 1.450 0.450 - 4.500 uIU/mL [facility] T4Free(Direct) 0.99 0.82 - 1.77 ng/dL [facility] Blood Venous blood specimen / Unknown 2025 4:37 PM EDT 2025 Narrative [facility] - 03/21/2025 7:07 PM EDT Performed at: [facility] [id number] Contact Assembler: Kip Giles PhD, Phone: [phone] Juan Cerna LAB BLOOD ORDERABLES Final R esult Performing Organization Address [facility] Co de Phone Number [facility] * Thyroid peroxidase and thyroglobulin antibodies (2025 4:37 PM EDT) THYROID PEROXIDASE (TPO) AB 21 0 - 34 IU/mL [facility] THYROGLOBULIN ANTIBODY <1.0 0.0 - 0.9 IU/mL [facility] Comment: Thyroglobulin Antibody measured by Direct[employer] Methodology It should be noted that the presence of thyroglobulin antibodies may not be pathogenic nor diagnostic, especially at very low levels. The assay manager therapy has found that four percent of individuals without evidence of thyroid disease or autoimmunity will have positive TgAb levels up to 4 IU/mL. Blood Venous blood specimen / Unknown 2025 4:37 PM EDT 2025 Narrative [facility] - 03/21/2025 7:07 PM EDT Performed at: - [address] [id number] Contact Assembler: Kip Giles PhD, Phone: [phone] Juan Cerna LAB BLOOD ORDERABLES Final R esult Performing Organization Address [facility] Co de Phone Number [facility] * US OB limited 1+ fetuses (03/01/2025 8:57 AM EDT) Anatomical Region Laterality Modality Body Ultrasound 03/01/2025 8:57 AM EDT Narrative 03/01/2025 9:00 [place] [address] Ultrasound Report Signed Patient: YVONNE BAKER MR#: [id number] : 1995 Acct:[id number] Age/Sex: 29 / F ADM Date: Loc: [facility] 258- Attending Dr: Dejan Voss D.O. Ordering Physician: Bipin,Dejan D.O. Date of Service: 03/01/25 Procedure(s): US OB limited Accession Number(s): [id number] cc: Dejan Voss D.O.; Gregorio Garcia M.D. The [address] [address] Patient Name: YVONNE BAKER MRN: [id number] date: 1995 Sex: F Assigned Patient Location: [facility] Current Patient Location: [facility] Accession/Order Number: [id number] Exam Date: 03/01/2025 08:52 Report Date: 03/01/2025 08:57 At the request of: DEJAN VOSS DO Procedure: US OB limited OB ultrasound. Reason for exam: demise. Comparison:Ultrasound 11/22/2024 Technique: Transabdominal imaging of the gravid uterus was obtained. Findings: Intrauterine is present measuring 12 weeks 6 days by CRL. No heart rate is identified. No free fluid is seen. US/US OB limited Impression: Intrauterine 12 weeks 6 days by CRL without heart rate. demise is suspected. Correlation with beta-hCG trend is recommended. Findings of the study were relayed to the patient's nurse by the pathology technologist. Impression dictated by: Brent Jonas Jr., D.O. 03/01/2025 8:57 AM Dictation Location: [place] [address] Electronically authenticated by: [id number] Y Date: 03/01/2025 08:57 Dictated By: Brent Jonas M.D. Signed By: 03/01/25899 DD/ 0857 TD/TT: Cask Maker: Procedure Note Radiology, Radiologist, MD - 03/01/2025 [place] [address] Ultrasound Report Signed Patient: YVONNE BAKER#: [id number] : 1995Acct:[id number] Age/Sex: 29 / FADM Date: Loc: [facility] [address]: Dejan Voss D.O. Ordering Physician: Dejan Voss D.O. Date of Service: 03/01/25 Procedure(s): US OB limited Accession Number(s): [id number] cc: Dejan Voss D.O.; Gregorio Garcia M.D. [place] [id number] Patient Name: YVONNE BAKER MRN: [facility]:[id number] date: 1995 Sex: F Assigned Patient Location: [facility] Current Patient Location: [facility] Accession/Order Number: [id number] Exam Date: 03/01/2025 08:52 Report Date: 03/01/2025 08:57 At the request of: DEJAN VOSS DO Procedure: US OB limited OB ultrasound. Reason for exam: demise. Comparison:Ultrasound 11/22/2024 Technique: Transabdominal imaging of the gravid uterus was obtained. Findings: Intrauterine is present measuring 12 weeks 6 days by CRL. Nofetal heart rate is identified. No free fluid is seen. US/US OB limited Impression: Intrauterine 12 weeks 6 days by CRL without heart rate. demise is suspected. Correlation with beta-hCG trend is recommended. Findings of the study were relayed to the patient's nurse by theultrasound technologist. Impression dictated by: Brent Jonas Jr., D.O. 03/01/2025 8:57 AM Dictation Location: [place] [address] Electronically authenticated by: [id number] Y Date: 508:57 Dictated By: Brent Jonas M.D. Signed By:03/01/25 0900 DD/ 0857 TD/TT: Cask Maker: us Dejan Voss DO IMG OB US PROCEDURES Final Resul t * FACTOR V LEIDEN MUTATION (03/01/2025 7:49 AM EDT) Pathologist [facility] FACTOR V LEIDEN MUTATION Comment . [facility] Comment: Result: c.1601G>A (p.[id number]) - Not Detected This result is not associated with an increased risk for venous thromboembolism. See Additional Clinical Information and Comments. Additional Clinical Information: Venous thromboembolism is a multifactorial disease influenced by genetic, environmental, and circumstantial risk factors. The c.1601G>A (p. [id number]) variant in the F5 gene, commonly referred to as Factor V Leiden, is a genetic risk factor for venous thromboembolism. Heterozygous carriers of this variant have a 6- to 8-fold increased risk for venous thromboembolism. Individuals homozygous for this variant (ie, with a copy of the variant on each chromosome) have an approximately 80-fold increased risk for venous thromboembolism. Individuals who carry both a c.*97G>A variant in the F2 gene and Factor V Leiden have an approximately 20-fold increased risk for venous thromboembolism. Risks are likely to be even higher in more complex genotype combinations involving the F2 c.*97G>A variant and Factor V Leiden (PMID: 19607024). Additional risk factors include but are not limited to: deficiency of protein C, protein S, or antithrombin III, age, male sex, personal or family history of deep vein thromboembolism, smoking, surgery, prolonged immobilization, malignant neoplasm, tamoxifen treatment, raloxifene treatment, oral contraceptive use, hormone replacement therapy, and . Management of thrombotic risk and thrombotic events should follow established guidelines and fit the clinical circumstance. This result cannot predict the occurrence or recurrence of a thrombotic event. Comment: Genetic counseling is recommended to discuss the potential clinical implications of positive results, as well as recommendations for testing family members. Genetic Coordinators are available for health care providers to discuss results at [phone] ([phone]). Test Details: Variant Analyzed: c.1601G>A (p. [id number]), referred to as Factor V Leiden Methods/Limitations: DNA analysis of the F5 gene (NM_000130.5) was performed by PCR amplification followed by electrophoresis. The diagnostic sensitivity is >99%. Results must be combined with clinical information for the most accurate interpretation. Molecular-based testing is highly accurate, but as in any laboratory test, diagnostic errors may occur. False positive or false negative results may occur for reasons that include genetic variants, blood transfusions, bone marrow transplantation, somatic or tissue-specific mosaicism, mislabeled samples, or erroneous representation of family relationships. This test was developed and its performance characteristics determined by [employer]. It has not been cleared or approved by the Food and Drug Administration. References: Roger Mathews, Stacia GORMAN, Deric R, Kira WW, Alberto JH; ACMG Professional Practice and Guidelines Committee. Addendum: [place] [employer] consensus statement on factor V Leiden mutation testing. Sindhu Med. 2020Sep 20. doi: 10.1038/h51885-005-23529-z. PMID: 31749735. Ishan PATTERSON. Factor V Leiden Thrombophilia. 1998November 29 (Updated 2017Jul 22). In: Artie MP, Chauncey HH, Sandy RA, et al., editors. Romulo(R) (Internet). [place] ([place]): [facility]; 5527-1535. Available from: https://www.ncbi.nlm.nih.gov/books/STF4797/ Jamari S, Stacia GORMAN, [place] X, Varun B, Ruy EB, Millie P, Dong CS; ACMG Laboratory Estate Attorney Committee. Venous thromboembolism laboratory testing (factor V Leiden and factor II c. *97G>A), 2018 update: a technical standard of the [place] [employer] and Genomics (ACMG). Sindhu Med. 2017;20(12): 2894-0886. doi: 10.1038/r09803-261-8508-o. Epub 2017Apr 22. PMID: 18157641. [facility] REVIEWED BY Comment . [facility] Comment: Technical Component performed at [facility] Professional Component performed by: Joao Fall, PhD, [facility] [id number], [facility], [address] [place] [address] Performed at: - [facility] [address], [facility] [id number] Contact Assembler: Kylie Ignacio [facility], Phone: [phone] 03/01/2025 7:49 AM EDT 03/01/2025 7:54 AM EDT Narrative [facility] - 03/06/2025 10:09 AM EDT us Dejan Voss DO LAB BLOOD ORDERABLES Final Resul t [facility] * [facility] ANTITHROMBIN ACTIVITY (03/01/2025 7:49 AM EDT) [facility] ANTITHROMBIN ACTIVITY 101 75 - 135 % [facility] Comment: Direct Xa inhibitor anticoagulants such as rivaroxaban, apixaban and edoxaban will lead to spuriously elevated antithrombin activity levels possibly masking a deficiency. Performed at: - [facility] [id number] Contact Assembler: Betina Lindsey MD, Phone: [phone] 03/01/2025 7:49 AM EDT 03/01/2025 7:54 AM EDT Narrative [facility] - 03/02/2025 11:08 PM EDT Dejan Voss DO CLINISYNC Final Result [facility] * [facility] W/O COUM (03/01/2025 7:49 AM EDT) PROTHROMBIN TIME 10.5 9.0 - 11.6 sec TB TB INR 0.99 [facility] Comment: DESIRED INR: 2.0-3.0 CONDITIONS NOT LISTED BELOW 2.5-3.5 FOR PROSTHETIC HEART VALVE REPLACEMENT 2.5-3.5 RECURRENT THROMBOSIS 03/01/2025 7:49 AM EDT 03/01/2025 7:54 AM EDT Narrative [facility] - 03/01/2025 8:19 AM EDT Dejan Bipin DO CLINISYNC Final Result [facility] * MHPT FIBRINOGEN (03/01/2025 7:49 AM EDT) FIBRINOGEN 281 200 - 400 mg/dL TB 03/01/2025 7:49 AM EDT 03/01/2025 7:54 AM EDT Narrative [facility] - 03/01/2025 8:19 AM EDT Dejan CARDOZA Final Result [facility] * [facility] M[facility] GENE ANALYSIS (03/01/2025 7:49 AM EDT) [facility] MTHFR, DNA ANALYSIS Comment . [facility] Comment: Result: c.665C>T (p. [id number]), legacy name: [id number] - Not Detected c.1286A>C (p. [id number]), legacy name: [id number] - Detected, heterozygous Interpretation: This result is not associated with an increased risk for hyperhomocysteinemia. See Additional Clinical Information and Comments. Additional Clinical Information: Hyperhomocysteinemia is multifactorial involving genetic, clinical, and environmental risk factors. Reduced enzyme activity of methylenetetrahydrofolate reductase (MTHFR) is a genetic risk factor for hyperhomocysteinemia, particularly when serum folate levels are low. There are two common variants in the MTHFR gene that can decrease enzyme activity; c.665C>T (p. [id number]), legacy name [id number], and c.1286A>C (p. Kxk986Tso), legacy name [id number]. These variants do not independently increase risk of conditions related to hyperhomocysteinemia in the absence of elevated homocysteine levels. Measurement of total plasma homocysteine is recommended. Patients should share their MTHFR genotype with physicians who are making decisions regarding chemotherapy treatments that depend on folate, such as methotrexate. Guidelines do not recommend genotyping of these two MTHFR variants in the evaluation of venous thrombosis or obstetric risk due to limited evidence of clinical utility (PMID: 26158268). Comments: Genetic Coordinators are available for health care providers to discuss results at [phone] Test Details: Variants Analyzed: c.665C>T (p. [id number]), legacy name: C677T and c.1286A>C (p. Rir383Cpz), legacy name: [id number] Methods/Limitations: DNA analysis of the MTHFR gene was performed by PCR amplification followed by restriction enzyme analysis. The diagnostic sensitivity is >99%. Results must be combined with clinical information for the most accurate interpretation. Molecular-based testing is highly accurate, but as in any laboratory test, diagnostic errors may occur. False positive or false negative results may occur for reasons that include genetic variants, blood transfusions, bone marrow transplantation, somatic or tissue-specific mosaicism, mislabeled samples, or erroneous representation of family relationships. This test was developed and its performance characteristics determined by [employer]. It has not been cleared or approved by the Food and Drug Administration. References: Ruperto SE, Kyle CJ, Anshul LÓPEZ. ACMG Practice Guideline: lack of evidence for MTHFR polymorphism testing. Sindhu Med. 2012;15(2):153-6. doi: 10.1038/gim.2012.165. Epub 2012Jul 21. PMID: 26036796. [place] [employer]stetricians and Gynecologists' Committee on Practice Bulletins-Obstetrics. ACOG Practice Bulletin No. 197: Inherited Thrombophilias in . Obstet Gynecol. 2018 Jan;132(1):e18-e34. doi: 10.1097/AOG.8405727755228624. Erratum in: Obstet Gynecol. 2018 Apr;132(4):1069. PMID: 05217067. REVIEWED BY: Comment . [facility] Comment: Technical Component performed at [facility] Professional Component performed by: Dean Shearer, PhD, [facility] TPTGD5, [facility], [address] [facility] [id number] Performed at: - [facility] [address], [facility], [place] [id number] Contact Assembler: Kylie Ignacio [facility], Phone: [phone] 03/01/2025 7:49 AM EDT 03/01/2025 7:54 AM EDT Narrative [facility] - 03/07/2025 7:08 PM EDT us Dejan Voss DO CLINISYNC Final Result [facility] * [facility] APTT (03/01/2025 7:49 AM EDT) PARTIAL THROMBOPLASTIN TIME 29.5 22.3 - 36.2 sec [facility] 03/01/2025 7:49 AM EDT 03/01/2025 7:54 AM EDT Narrative [facility] - 03/01/2025 8:19 AM EDT Dejan Voss DO CLINISYLEIDA Final Result [facility] * ALL MISCELLANEOUS TEST (03/01/2025 7:49 AM EDT) [facility] MISCELLANEOUS TEST COMMENT . [facility] Comment: Test Ordered: [id number] , ID Ab Cytomegalovirus (CMV) Ab, IgG <0.60 U/mL CB Reference Range: 0.00-0.59 Negative <0.60 Equivocal 0.60 - 0.69 Positive >0.69 Cytomegalovirus (CMV) Ab, IgM <30.0 AU/mL CB Reference Range: 0.0-29.9 Negative <30.0 Equivocal 30.0 - 34.9 Positive >34.9 A positive result is generally indicative of acute infection, reactivation or persistent IgM production. Toxoplasma gondii Ab,IgG <3.0 IU/mL CB Reference Range: 0.0-7.1 Negative <7.2 Equivocal 7.2 - 8.7 Positive >8.7 Toxoplasma gondii Ab,IgM <3.0 AU/mL CB Reference Range: 0.0-7.9 Negative <8.0 Equivocal 8.0 - 9.9 Positive >9.9 Comments Comment CB Reference Range: . No serological evidence of infection with Toxoplasma. If symptoms persist, submit a new specimen after three weeks. Parvovirus B19, IgG 0.2 index Reference Range: 0.0-0.8 Negative <0.9 Equivocal 0.9 - 1.1 Positive >1.1 Parvovirus B19, IgM 0.2 index Reference Range: 0.0-0.8 Negative <0.9 Equivocal 0.9 - 1.1 Positive >1.1 Performed at: [facility] [address] [id number] Contact Assembler: Kip Giles PhD, Phone: [phone] Performed at: [facility] [address] [id number] Contact Assembler: Betina Lindsey MD, Phone: [phone] 03/01/2025 7:49 AM EDT 03/01/2025 8:00 AM EDT Narrative [facility] - 03/05/2025 4:13 PM EDT [id number] , Infectious Disease Antibody Profile (TORCH) Dejan Bipin DO [facility] Final Result [facility] * (ABNORMAL) ALL CBC WITH AUTO DIFF (03/01/2025 7:49 AM EDT) Only the most recent of2 resultswithin the time period is included. [facility] WBC 6.2 4.0 - 11.0 10 3/uL TBH TBH RBC 4.28 4.20 - 5.40 10 6/uL TB[facility] TBH HGB 13.5 12.0 - 16.0 g/dL TB[facility] TBH HCT 37.8 36.0 - 48.0 % [facility]H MCV 88.3 81.0 - 99.0 fL TBH TBH MCH 31.5 26.7 - 34.0 pg TBH TBH MCHC 35.7(H) 29.9 - 35.2 g/dL [facility] TBH RDW 12.9 11.0 - 15.0 % [facility] PLT 251 150 - 450 10 3/uL [facility] MPV 11.2 9.5 - 13.5 fL [facility] NEUTROPHILS PERCENT AUTO 60.3 43.0 - 75.0 % [facility] LYMPHOCYTES PERCENT AUTO 32.9 20.5 - 60.0 % [facility] MONOCYTES PERCENT AUTO 5.6 1.7 - 12.0 % [facility] TBH EO % 0.5(L) 0.9 - 7.0 % [facility] BASOPHILS PERCENT AUTO 0.5 0.2 - 2.0 % [facility] IMMATURE GRANULOCYTES PCT AUTO 0.2 0.0 - 0.5 % [facility] NEUTROPHILS ABSOLUTE AUTO 3.7 1.4 - 6.5 10 3/uL [facility] LYMPHOCYTES ABSOLUTE AUTO 2.0 1.2 - 3.8 10 3/uL [facility] MONOCYTES ABSOLUTE AUTO 0.4 0.3 - 0.8 10 3/uL TBH TBH EO # 0.0 0.0 - 0.7 10 3/uL TBH BASOPHILS ABSOLUTE AUTO 0.0 0.0 - 0.1 10 3/uL [facility] IMMATURE GRANULOCYTES ABS AUTO 0.01 0.00 - 0.03 10 3/uL [facility] 03/01/2025 7:49 AM EDT 03/01/2025 7:54 AM EDT Narrative [facility] - 03/01/2025 8:01 AM EDT us Dejan Bipin DO CLINISYNC Final Result [facility] * Urine culture (02/27/2025 4:15 PM EDT) Urine Urine specimen obtained by clean catch procedure / Unknown us Dejan Bipin DO LAB MICROBIOLOGY - GENERAL ORDER [...] ELECTRONICALLY SIGNED BY: Brent Moore MD us Dejan Bipin DO IMG OB US PROCEDURES Final Resul t * (ABNORMAL) POCT urinalysis dipstick manually resulted (02/27/2025 9:41 AM EDT) Only the most recent of2 resultswithin the time period is included. Color, [...] - Positive Urine 02/27/2025 9:41 AM EDT Dejan Bipin DO POINT OF CARE TEST ENTER/EDIT OR DERABLES Final Result * BOX TEST (02/02/2025 9:55 AM EDT) BOX TEST SENT OUT YES [facility] BOX1 [facility] BOX2 02/02/25 [facility] 02/02/2025 9:55 AM EDT 02/02/2025 10:05 AM EDT Narrative [facility] - 02/02/2025 10:07 AM EDT Dejan Bipin DO LAB BLOOD ORDERABLES Final [facility]ul [facility] * HBSAG SCREEN (02/02/2025 9:55 AM EDT) HBSAG SCREEN Negative Negative [facility] Comment: Performed at: [address] [id number] Contact Assembler: Kip Giles PhD, Phone: [phone] 02/02/2025 9:55 AM EDT 02/02/2025 10:05 AM EDT Narrative CL[facility] - 02/03/2025 11:08 AM EDT us Dejan Bipin DO LAB BLOOD ORDERABLES Final Resul t Performing Organization Address City/[facility]/ZIP Co de Phone Number [facility] * RAPID PLASMA REAGIN, QUANT (02/02/2025 9:55 AM EDT) RAPID PLASMA REAGIN, QUANT Non Reactive NonRea<1: 1 titer [facility] Comment: Please Note: This test does not meet current guidelines for screening and diagnosis of syphilis. This test is intended for following treatment response in patients being treated for syphilis infection. To screen for syphilis infection, a reflex cascade that includes both RPR and a treponema-specific assay should be utilized, such as Treponema pallidum (Syphilis) Screening Osborne (670164) or Rapid Plasma Reagin (RPR) Test With Reflex to Quantitative RPR and Confirmatory Treponema pallidum Antibodies (277882). Performed at: [address] [id number] Contact Assembler: Kip Giles PhD, Phone: [phone] 02/02/2025 9:55 AM EDT 02/02/2025 10:05 AM EDT Narrative [facility] - 02/03/2025 11:08 AM EDT us Dejan Bipin DO LAB BLOOD ORDERABLES Final Resul t [facility] * HIV AB/P24 AG WITH REFLEX (02/02/2025 9:55 AM EDT) HIV AB/P24 AG SCREEN Non Reactive Non Reactive [facility] Comment: HIV-1/HIV-2 antibodies and HIV-1 p24 antigen were NOT detected. There is no laboratory evidence of HIV infection. HIV Negative Performed at: [place] [address] [place], [place] [id number] Contact Assembler: Kip Giles PhD, Phone: [phone] 02/02/2025 9:55 AM EDT 02/02/2025 10:05 AM EDT Narrative [facility] - 02/03/2025 5:07 AM EDT us Dejan Bipin DO LAB BLOOD ORDERABLES Final Resul t Performing Organization Address City/[facility] Co de Phone Number [facility] * HCV ANTIBODY RFX TO QUANT PCR (02/02/2025 9:55 AM EDT) HCV AB Non Reactive Non Reactive [facility] INTERPRETATION: Comment . [facility] Comment: Not infected with HCV unless early or acute infection is suspected (which may be delayed in an immunocompromised individual), or other evidence exists to indicate HCV infection. 02/02/2025 9:55 AM EDT 02/02/2025 10:05 AM EDT Narrative [facility] - 02/03/2025 5:07 AM EDT us Dejan Bipin DO LAB BLOOD ORDERABLES Final Resul t Performing Organization Address [facility] Co de Phone Number [facility] * MLR HEMOGLOBIN A1C (02/02/2025 9:55 AM EDT) GLYCOHEMOGLOBIN A1C 5.3 4.5 - 6.2 % [facility] Comment: ADA RECOMMENDED LIMIT 4.0 - 6.0 ADA THERAPEUTIC TARGET < 7.0 ACTION SUGGESTED > 7.0 ESTIMATED AVERAGE GLUCOSE 105 mg/dL [facility] 02/02/2025 9:55 AM EDT 02/02/2025 10:05 AM EDT Narrative [facility] - 02/02/2025 10:22 AM EDT us Dejan Bipin DO CLINISYNC Final Result [facility] * ALL TYPE AND SCREEN (02/02/2025 9:55 AM EDT) BLOOD TYPE A Positive [facility] ANTIBODY SCREEN NEGATIVE [facility] 02/02/2025 9:55 AM EDT 02/02/2025 10:05 AM EDT Narrative CLINISYNC - 02/02/2025 11:55 AM EDT [facility] , us Dejan Bipin DO CLINISYNC Final Result Performing Organization Address City/[facility]/ZIP Co de Phone Number [facility] * ALL RUBELLA IGG AB (02/02/2025 9:55 AM EDT) RUBELLA ANTIBODIES, IGG 2.16 Immune >0.99 index [facility] Comment: Non-immune <0.90 Equivocal 0.90 - 0.99 Immune >0.99 Performed at: [facility] [id number] Contact Assembler: Kip Giles PhD, Phone: [phone] 02/02/2025 9:55 AM EDT 02/02/2025 10:05 AM EDT Narrative [facility] - 02/03/2025 5:07 AM EDT us Dejan Abramszio DO CLINISYNC Final Result Performing Organization Address [facility] Co de Phone Number [facility] * [facility]H DRUG SCREEN RAPID (URINE) (02/02/2025 9:50 AM EDT) CANNABINOID SCREEN URINE NEGATIVE NEGATIVE TBH PHENCYCLIDINE [...] Narrative CLINISYNC - 02/02/2025 10:37 AM EDT Dejan Bipin DO CLINISYNC Final Result [facility] * (ABNORMAL) POCT , urine manually resulted (01/26/2025 11:31 AM EDT) Preg Test, Ur Positive Negative Urine 01/26/2025 11:3 1 AM EDT Dejan Bipin DO POINT OF CARE TEST ENTER/EDIT OR DERABLES Final Result * TB PREG QUANT HCG (01/08/2025 8:13 AM EDT) Only the most recent of2 resultswithin the time period is included. HCG QUANTITATIVE 14,415 mIU/mL [facility] Comment: 5-50 0.2-1 WEEK 50-500 1-2 WEEKS 100-5,000 2-3 WEEKS 500-10,000 3-4 WEEKS 1,000-50,000 4-5 WEEKS 10,000-100,000 5-6 WEEKS 15,000-200,000 6-8 WEEKS 10,000-100,000 2-3 MONTHS 01/08/2025 8:13 AM EDT 01/08/2025 8:15 AM EDT Narrative CLINISYNC - 01/08/2025 9:14 AM EDT Dejan Voss DO CLINISYNC Final Result [facility]INIS[facility]NC TB from Last 3 Months Insurance BCBS Care Teams Savings Counselor Relationship Specialty Start Date End Date Juan Cerna DO [address] [place] [address] PCP - General Family Medicine 03/15/25
--- OUTSIDE RECORDS SUMMARY | 2025-04-05 06:35 | XMS_ITS | Encounter Summary ---
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[place], [place]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 documented as of this encounter Plan of Treatment Upcoming Encounters Date Type Department Care Team (Late st Contact Info) Description 04/18/2025 5:20 PM EDT Office Visit [facility] [place] [facility] [address] [place] [address] Juan Cerna DO [address] [place] [address] documented as of this encounter Visit Diagnoses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documented in this encounter Additional Health Concerns Assessment Noted Time PHQ-9 Depression Total Score: 10 025 1:48 PM EDT documented as of this encounter Care Teams Clinical Trial Educator Relationship Specialty Start Date End Date Juan Cerna DO [address] [place] [address] PCP - General Family Medicine 03/15/25 documented as of this encounter
--- OUTSIDE RECORDS SUMMARY | 2025-04-05 06:35 | XMS_ITS | Patient Health Record ---
Author Organization [facility] Address [address] [place] [address] Care Team Providers Care Websphere Message Broker Developer Name Role Phone Gregorio Garcia Primary Care Provider Dane Chowdhury [facility] [phone] Allergies Allergen (clinical drug ingredient) Drug/Non Drug Allergy documented on EMR Reaction Allergy Type Onset Date Status bee sting (uncoded) anaphylaxis Allergy Active Results Component Value Reference Range Notes SCC- WRIST 3 VIEW LEFT 23051 Reviewed date:07/25/2024 03:44:15 PM Interpretation: Performing Lab: [...] 06/26/2024 Encounters Encounter Location Date Provider Diagnosis [facility] [address] [place] [address] [place] [address] 06/26/2024 Dane Cordova Pain in right wrist [...] End Date [facility] [address] [address] [place] [address] [id number] ROBERTO CANALES Spouse - patient is the spouse of the insured Medical (General) History Medical History History ICD Code Anxiety
--- OUTSIDE RECORDS SUMMARY | 2025-04-05 06:36 | XMS_ITS | Encounter Summary ---
Author Organization [facility] Address [address] [place] [address] Care Team Providers Care Optometric Technologist Name Role Phone Juan Cerna DO Primary Care Provider + [phone] Gregorio Garcia MD Primary Care Provider + Juan Cerna DO Primary Care Provider + [phone] Encounter Details Date Type Department Care Team (Late st Contact Info) Description 04/11/2023 Clinisync Result Encounter [facility] External Department Unsolicited Dejan Voss DO [address] [facility] [place] [address] Social History Tobacco Use Types Packs/Day Years [...] at [facility] in [place], [place]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 documented as of this encounter Plan of Treatment Upcoming Encounters Date Type Department Care Team (Late st Contact Info) Description 04/18/2025 5:20 PM EDT Office Visit [facility] [address] [facility] [address] [place] [phone] [place], Juan L, DO [address] [place] [address] documented as of this encounter Procedures Procedure Name Priority Date/Time Associated Diagnosis Comments US OB GROWTH 04/11/2023 2:03 AM EDT documented in this encounter Results * US OB GROWTH (04/11/2023 2:03 AM EDT) Anatomical Region Laterality Modality Other 04/11/2023 2:03 AM EDT Narrative 04/11/2023 2:03 AM EDT [address] [address] Ultrasound Report Signed Patient: YVONNE BAKER MR#: [id number] : 1995 Acct:[id number] Age/Sex: 28 / F ADM Date: 04/10/23 Loc: US Attending Dr: Dejan Voss D.O. Ordering Physician: Dejan Voss D.O. Date of Service: 04/10/23 Procedure(s): US OB growth Accession Number(s): [id number] cc: Dejan Voss D.O.; Physician,Non-Staff [facility] [address] [address] Patient Name: YVONNE BAKER MRN: [id number] date: 1995 Sex: F Assigned Patient Location: US Current Patient Location: Accession/Order Number: [id number] Exam Date: 04/10/2023 14:15 Report Date: 04/11/2023 [...] M.D. Signed By: 04/11/23204 DD/ 2 TD/TT: Ground Instructor Basic: Procedure Note Radiology, Radiologist, MD - 04/11/2023 [place] [address] Ultrasound Report Signed Patient: YVONNE BAKER DMR#: [id number] : 1995Acct:[id number] Age/Sex: 28 / FADM Date: 04/10/23 Loc: US Attending Dr: Dejan Voss D.O. Ordering Physician: Dejan Voss D.O. Date of Service: 04/10/23 Procedure(s): US OB growth Accession Number(s): [id number] cc: Dejan Voss D.O.; Physician,Non-Staff [facility] [place] [id number] Patient Name: YVONNE BAKER MRN: [id number] date: 1995 Sex: F Assigned Patient Location: US Current Patient Location: Accession/Order Number: [id number] Exam Date: 04/10/2023 14:15 Report Date: 04/11/2023 [...] [place] M.D. Signed By:04/11/23204 DD/ 2 TD/TT: Ground Instructor Basic: us Dejan Voss DO CLINISYNC IMAGING Final Result documented in this encounter Visit Diagnoses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documented in this encounter Care Teams Optometric Technologist Relationship Specialty Start Date End Date Juan Cerna DO [address] [facility] [address] [place] [address] PCP - General Family Medicine 02/02/23 10/17/23 Gregorio Garcia MD [address] [place] [address] PCP - General Family Medicine 10/18/23 03/14/25 Juan Cerna DO [address] [facility] [address] [place] [address] PCP - General Family Medicine 03/15/25 documented as of this encounter
--- OUTSIDE RECORDS SUMMARY | 2025-04-05 06:36 | XMS_ITS | Encounter Summary ---
Author Organization [facility] Address [address] [place] [address] Care Team Providers Care General Office Associate Name Role Phone Juan Cerna DO Primary Care Provider [phone] Gregorio Garcia MD Primary Care Provider + Juan Cerna DO Primary Care Provider [phone] Encounter Details Date Type Department Care Team (Late st Contact Info) Description 02/24/2023 Abstract [facility] [address] 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[place], [place]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 [...] 5:20 PM EDT Office Visit [facility] [place] [facility] [address] [place] [address] Juan Cerna DO [address] [place] [address] documented as of this encounter Visit Diagnoses Not on filedocumented in this encounter Care Teams General Office Associate Relationship Specialty Start Date End Date Juan Cerna DO [address] [place] [address] PCP - General Family Medicine 02/02/23 10/17/23 Gregorio Garcia MD [address] [place] [address] PCP - General Family Medicine 10/18/23 03/14/25 Juan Cerna DO [address] [place] [address] PCP - General Family Medicine 03/15/25 documented as of this encounter
--- OUTSIDE RECORDS SUMMARY | 2025-04-05 06:36 | XMS_ITS | CCD ---
Author Organization [facility] [employer] [facility] Care Team Providers Care Generator Technician Name Role Phone NONE, XXXX Unavailable Unavailable Hajdari, Astrit H Unavailable Unavailable Hajdari, Astrit H Unavailable Unavailable NONE, XXXX Unavailable Unavailable Samira, Mirza Unavailable Unavailable Samira, Mirza Unavailable Unavailable Kovesjustine Mirza Unavailable Unavailable NONE, XXXX Unavailable Unavailable Juan, Shanna Unavailable Unavailable NONE, XXXX Unavailable Unavailable Mirza Cheng Unavailable Unavailable NONE, XXXX Unavailable Unavailable ROCCO WEBBER Admitting Unavailable ROCCO WEBBER Attending Unavailable CLARENCE LIVINGSTON Referring Unavailable ROCCO WEBBER Consulting Unavailable DO Katya Cerna Primary Care Provider [phone] DO Katya Cerna Attending Provider HAWA Swartz Emergency Provider MD Gregorio Garcia Primary Care Provider Gregorio Garcia MD Primary Care Provider Gregorio Garcia MD Primary Care Provider Gregorio Garcia MD Primary Care Provider Gregorio Garcia MD Primary Care Provider Juan Voss DO Attending Provider Gregorio Garcia Primary Care Unavailable Juan Voss Attending Unavailable Juan Voss Admitting Unavailable Katya Cerna DO Primary Care Provider JUAN VOSS Attending Unavailable JUAN VOSS Attending Unavailable JUAN VOSS Attending Unavailable KATYA CERNA Attending Unavailable JUAN VOSS Attending Unavailable Allergies Allergy Classification Reported Allergen(s) Allergy Type Date of Onset Reaction(s) Facility (1 source) Bee/Wasp/Ant venom; Translations: [Bee Stings] Propensity to adverse reactions (disorder) [facility] Repository (20 sources) Honey bee venom Propensity to adverse reactions 3 Anaphylaxis [facility] Healthcare (14 sources) Honey bee venom Drug Allergy 4 Anaphylaxis [facility] Healthcare (1 source) bee venom protein (honey bee) Drug allergy (disorder) 4 [facility] Repository Medications Current Medications Medication Drug Class(es) Dates Sig (Normalized) Sig (Original) ALPRAZolam 0.25 mg oral tablet (2 sources) Benzodiazepine Start: 02-27-2025 take 1-2 tablets by mouth at bedtime as needed, then take 2 tablets by mouth at bedtime as needed ALPRAZolam (Xanax) 0.25 MG tablet TAKE 1-2 TABLETS BY MOUTH AT BEDTIME FOR 7 DAYS NEEDED, RECOMMEND TRYING 2 TABLETS AT BEDTIME 02/27/2025 Active escitalopram 5 mg oral tablet (2 sources) Serotonin Reuptake Inhibitor Start: 03-15-2025 take 1 tablet by mouth once daily escitalopram (Lexapro) 5 MG tablet Indications: Moderate episode of recurrent major depressive disorder (HCC) , Generalized anxiety disorder Take 1 tablet (5 mg) by mouth Daily 30 tablet 1 03/15/2025 Active Linden (No Known Home Meds) (2 sources) Start: 10-17-2023 [place]en (No Known Home Meds) Active October 17, 2023 12:00am ondansetron 4 mg disintegrating oral tablet (20 sources) Serotonin-3 Receptor Antagonist Start: 10-17-2022 End: 02-07-2025 take 1 tablet by mouth every six hours ondansetron ODT (Zofran-ODT) 4 MG disintegrating tablet Indications: Nausea and vomiting in (HHS-HCC) TAKE 1 TABLET BY MOUTH EVERY 6 HOURS 120 tablet 02/05/2025 Active penicillin v potassium 500 mg oral tablet (2 sources) Start: 10-17-2023 take 1 tablet by mouth twice daily Completed/Discontinued Medications Medication Drug Class(es) Dates Sig [...] gestation 30 suppository 01/04/2025 02/03/2025 Active Problems Active Problems Problem Classification Problem Date Documented Date Episodic/Chronic Anxiety disorders (2 sources) Anxiety disorder; Translations: [Anxiety disorder, unspecified] Onset: 03-15-2025 03-15-2025 Chronic Contraceptive and procreative management (2 sources) Patient encounter status; Translations: [Encounter for other procreative management] 08-22-2024 Episodic Hemorrhage during ; abruptio placenta; placenta previa (2 sources) Threatened miscarriage in first trimester; Translations: [Threatened ] 02-27-2025 Episodic Immunizations and screening for infectious disease (4 sources) Contact with and (suspected) exposure to other viral communicable diseases; Translations: [CONTCT EXPS OTH VIRL COMMUNICABL DZ] Onset: 02-26-2020 Episodic Mood disorders (4 sources) Moderate recurrent major depression; Translations: [Major depressive disorder, recurrent, moderate] Onset: 03-15-2025 03-15-2025 Chronic Other circulatory disease (1 source) History [...] sources) Streptococcal sore throat; Translations: [Streptococcal pharyngitis] 10-17-2023 Episodic Residual codes; unclassified (1 source) Gestation period, 8 weeks; Translations: [8 weeks gestation of ] 01-26-2025 Episodic Residual codes; unclassified (2 sources) Gestation period, 12 weeks; Translations: [12 weeks gestation of ] 02-27-2025 Episodic Spontaneous (4 sources) Miscarriage; Translations: [Complete or unspecified spontaneous without complication] 01-02-2025 Episodic Past or Other Problems Problem Classification Problem Date Documented Date Episodic/Chronic Inflammatory diseases of female pelvic organs (2 sources) Subacute vaginitis; Translations: [Subacute and chronic vaginitis] Onset: 03-15-2025 Resolved: 03-15-2025 03-15-2025 Episodic Menstrual disorders (4 sources) Amenorrhea; Translations: [Amenorrhea, unspecified] Onset: 03-15-2025 Resolved: 03-15-2025 01-26-2025 Chronic Mood disorders (2 sources) Mood disorders Onset: 03-15-2025 03-15-2025 Other connective tissue disease (2 sources) Ganglion cyst; Translations: [Ganglion, unspecified site] Onset: 03-15-2025 Resolved: 03-15-2025 03-15-2025 Episodic Sexually transmitted infections (not HIV or hepatitis) (2 sources) Human papilloma virus deoxyribonucleic acid test positive, high risk on vaginal specimen; Translations: [Vaginal high risk human papillomavirus (HPV) DNA test positive] Onset: 03-15-2025 Resolved: 03-15-2025 03-15-2025 Episodic Results Test Name Value Interpretation Reference Range Facility ALL CBC WITH AUTO DIFFon BASOPHILS ABSOLUTE AUTO 0 [facility] Healthcare Basophils/100 WBC (Bld) 0.5 % 0.2 - 2.0 % [facility] Eosinophils/100 WBC (Bld) 0.5 % Low 0.9 - 7.0 % [facility] Healthcare Erythrocyte distribution width (RBC) [Ratio] 12.9 % 11.0 - 15.0 % [facility] Hematocrit (Bld) [Volume fraction] 37.8 % 36.0 - 48.0 % [facility] Hemoglobin (Bld) [Mass/Vol] 13.5 g/dL 12.0 - 16.0 g/dL [facility] IMMATURE GRANULOCYTES ABS AUTO 0.01 [facility] Immature granulocytes/100 WBC (Bld) 0.2 % 0.0 - 0.5 % [facility] Interpretation and review of laboratory results Abnormal [facility] LYMPHOCYTES ABSOLUTE AUTO 2 [facility] Lymphocytes/100 WBC (Bld) 32.9 % 20.5 - 60.0 % [facility] MCH (RBC) [Entitic mass] 31.5 pg 26.7 - 34.0 pg [facility] MCHC (RBC) [Mass/Vol] 35.7 g/dL High 29.9 - 35.2 g/dL [facility] MCV (RBC) [Entitic vol] 88.3 fL 81.0 - 99.0 fL [facility] MONOCYTES ABSOLUTE AUTO 0.4 [facility] Monocytes/100 WBC (Bld) 5.6 % 1.7 - 12.0 % [facility] NEUTROPHILS ABSOLUTE AUTO 3.7 [facility] Neutrophils/100 WBC (Bld) 60.3 % 43.0 - 75.0 % [facility] Platelet mean volume (Bld) [Entitic vol] 11.2 fL 9.5 - 13.5 fL [facility] EO # 0 [facility] PLT 251 [facility] RBC 4.28 [facility] WBC 6.2 [facility] [place] 03-01-2025 L -------- -------- Specimen: [id number] Received: 03/02/25 Status: DELIA Lucio Num: [id number] Spec Type: Surgical Subm Dr: Juan Voss Tissues: A Gross Only (FETUS) B Products of Conception - Spontaneous or Missed (PRODUCTS OF CONCEPT Procedures: HE/2, Gross/Micro L4, Level 1 Gross -------- Age/ Patient Sex Location Account Attending Physician -------- Carina Baker LABELL [id number] Juan Voss -------- SPEC NUM: [id number] RECD: 03/02/25 STATUS: DELIA LUCIO NUM: [id number] CAROLYN: 03/01/25- [facility] DR: Juan Voss ENTERED: 03/02/25 [facility] DR: Flaquita,Lab SPEC TYPE: Surgical DEPT: JOHN PAUL HUERTAS ORDERED: HE/2, Gross/Micro L4, Level 1 Gross ORDERED: HE/2, Gross/Micro L4, Level 1 Gross Pathological Diagnosis A. Fetus, vaginal delivery: - Immature fetus, clinically, 12.6 weeks. - Gross examination. B. Uterine content/products of conception, curettage: - Immature first trimester chorionic villi with decidualized tissue consistent with intrauterine . Clinical Information Miscarriage, spontaneous vaginal delivery, demise, gestational age of 12 weeks and 6 days, Paxton/parity: 3/, miscarriage 12/05/2024 at 7 weeks gestation Gross Description Part A is received in formalin labeled with the patients name, date of , and fetus is a osman-rush to purple pale purple, somewhat dusky intact fetus with a crown to rump length of 6 cm, a foot length of 0.7 cm, a head circumference of 6 cm, and focal regions of skin slippage. GROSS ONLY- Part B is received in formalin labeled with the patients name, date of , and products of conception is a suction bag with rush-pink, glistening tissue fragments, consistent with decidua, admixed with red-brown, clotted, hemorrhagic material, 7 x 4 x 2 cm in aggregate with a detached portion of pale osman, feathery chorionic villi, 6 x 3.5 x 1.5 cm. The -------- Specimen: [id number] Received: 03/02/25 Status: DELIA Lucio Num: [id number] Spec Type: Surgical Subm Dr: Juan Voss Tissues: A Gross Only (FETUS) B Products of Conception - Spontaneous or Missed (PRODUCTS OF CONCEPT Procedures: HE/Jan, Gross/Micro L4, Level 1 Gross -------- Patient: Carina Baker [id number] (Continued) -------- Specimen: [id number] Received: 03/02/25 (Continued) Gross Description (Continued) Signed (signature on file) Glenroy Martinez MD 03/06/25 1421 -------- Specimen: [id number] Received: 03/02/25 Status: DELIA Lucio Num: [id number] Spec Type: Surgical Subm Dr: Juna Voss Tissues: A Gross Only (FETUS) B Products of Conception - Spontaneous or Missed (PRODUCTS OF CONCEPT Procedures: HE/2, Gross/Micro L4, Level 1 Gross -------- Patient: Carina Baker [id number] (Continued) -------- Specimen: [id number] Received: 03/02/25 (Continued) Gross Description (Continued) gestational sac is 2.7 x 1.7 cm and disrupted. Extrusion Press Adjuster sections of the chorionic villi are submitted in B1 with international representative sections of the decidua submitted in B2. (2, , [id number] B)Sivakumar Microscopic Description A. Gross examination. B. Microscopic examination is performed. CPT Codes 67568, 20870 -------- -------- Specimen: [id number] Received: 03/02/25 Status: DELIA Khadijah Num: [id number] Spec Type: Surgical Subm Dr: Juan Voss Tissues: A Gross Only (FETUS) B Products of Conception - Spontaneous or Missed (PRODUCTS OF CONCEPT Procedures: HE/2, Gross/Micro L4, Level 1 Gross -------- Patient: Carina Baker [id number] (Continued) -------- Signed (signature on file) Glenroy Martinez MD 03/06/25 1421 Normal [facility] [place] [address] Ultrasound Report Signed Patient: CARINA BAKER MR#: [id number] : 1995 Acct:[id number] Age/Sex: 29 / F ADM Date: Loc: [facility] 258-[address]: Juan Vsos D.O. Ordering Physician: Juan Voss D.O. Date of Service: 03/01/25 Procedure(s): US OB limited Accession Number(s): [id number] cc: Juan Voss D.O.; Gregorio Garcia M.D. [place] [address] Patient Name: CARINA BAKER MRN: [id number] date: 1995 Sex: F Assigned Patient Location: [facility] Current Patient Location: [facility] Accession/Order Number: [id number] Exam Date: 03/01/2025 08:52 Report Date: 03/01/2025 08:57 At the request of: JUAN VOSS DO Procedure: US OB limited OB [...] relayed to the patient's nurse by the creative technologist. Impression dictated by: Brent Jonas Jr., D.O. 03/01/2025 8:57 AM Dictation Location: [place] [address] Electronically authenticated by: [id number] Y Date: 03/01/2025 08:57 Dictated By: Brent Jonas M.D. Signed By: 03/01/25899 DD/ TD/TT: Senior Systems Developer: [facility] Radiology Radiologmichael townsend MD - 03/01/2025 [place] [address] Ultrasound Report Signed Patient: CARINA BAKER MR#: [id number] : 1995 Acct:[id number] Age/Sex: 29 / F ADM Date: Loc: [facility] 258-[address]: Juan Voss D.O. Ordering Physician: Juan Voss D.O. Date of Service: 03/01/25 Procedure(s): US OB limited Accession Number(s): [id number] cc: Juan Voss D.O.; Gregorio Garcia M.D. [place] [address] Patient Name: CARINA BAKER MRN: [facility]:[id number] date: 1995 Sex: F Assigned Patient Location: [facility] Current Patient Location: [facility] Accession/Order Number: [id number] Exam Date: 03/01/2025 08:52 Report Date: 03/01/2025 08:57 At the request of: JUAN VOSS DO Procedure: US OB limited OB [...] relayed to the patient's nurse by the creative technologist. Impression dictated by: Brent Jonas Jr., D.O. 03/01/2025 8:57 AM Dictation Location: [place] [address] Electronically authenticated by: [id number] Y Date: 03/01/2025 08:57 Dictated By: Brent Jonas M.D. Signed By: 03/01/25 09 DD/ 6 TD/TT: Senior Systems Developer: [facility] Study observation (narrative) [facility] US for pregnancyOrdered By: Radiologist Radiology on 03-01-2025 [facility] Work Phone: US OB TRANSVAGINALon 025 US OB TRANSVAGINAL [...] BY: ELECTRONICALLY SIGNED BY: Brent Moore MD [facility] Study observation (narrative) [facility] US Pelvis transvaginalOrdere d By: Brent Moore on 02-27-2025 [facility] Work Phone: Urinalysis macro (dipstick) panel (U)on 02-27-2025 Bilirubin, UA Negative Negative - 4(70) +++ mg/dL [facility] Blood, UA Positive Negative - 50 Ronal/mcL [facility] Clarity, UA Clear [facility] Color, UA Yellow [facility] Glucose, UA Negative Negative - 1999(110) ++++ mg/dL [facility] Interpretation and review of laboratory results Abnormal [facility] Ketones, UA Negative Negative - 160(16) ++++ mg/dL [facility] Leukocytes, UA Positive Negative - 500+++ Gilbert/mcL [facility] Comment on above: 3+ Nitrite, UA Negative Negative - Positive [facility] pH, UA 6 5 - 9 [facility] Protein, UA Negative Negative - 1999(20) ++++ mg/dL [facility] Spec Grav, UA 1.025 1 - 1.03 [facility] Urobilinogen, UA 1.0 0.2 - 12 mg/dL [facility] BOX TESTon 02-02-2025 BOX TEST SENT OUT YES [facility] BOX1 UNITY [facility] BOX2 02/02/25 [facility] HCG ( test) Ql (U)o n 01-26-2025 Interpretation and review of laboratory results Abnormal [facility] Preg Test, Ur Positive Negative [facility] US OB TRANSVAGINALon 025 US OB TRANSVAGINAL [...] UA Negative Negative - 4(70) +++ mg/dL [facility] Blood, UA Negative Negative - 50 Ronal/mcL [facility] Clarity, UA Clear [facility] Color, UA Yellow [facility] Glucose, UA Negative Negative - 1999(110) ++++ mg/dL [facility] Interpretation and review of laboratory results Normal [facility] Ketones, UA Negative Negative - 160(16) ++++ mg/dL [facility] Leukocytes, UA Trace Negative - 500+++ Gilbert/mcL [facility] Nitrite, UA Negative Negative - Positive [facility] pH, UA 7 5 - 9 [facility] Protein, UA Negative Negative - 1999(20) ++++ mg/dL [facility] Spec Grav, UA 1.02 1 - 1.03 [facility] Urobilinogen, UA 0.2 0.2 - 12 mg/dL [facility] US OB TRANSVAGINALon 01-10-2 025 US OB TRANSVAGINAL EXAM: US OB [...] II, MD, PHD at 11-Jan-2025 09:47:30 AM [facility] Normal Not Available [facility] PREG QUANT HCGon 025 HCG QUANTITATIVE 55239 mIU/mL [facility] Comment on above: 5-50 0.2-1 WEEK 50-500 1-2 WEEKS 100-5,000 2-3 WEEKS 500-10,000 3-4 WEEKS 1,000-50,000 4-5 WEEKS 10,000-100,000 5-6 WEEKS 15,000-200,000 6-8 WEEKS 10,000-100,000 2-3 MONTHS [facility] PREG QUANT HCGon 025 HCG QUANTITATIVE 80810 mIU/mL [facility] Comment on above: 5-50 0.2-1 WEEK 50-500 1-2 WEEKS 100-5,000 2-3 WEEKS 500-10,000 3-4 WEEKS 1,000-50,000 4-5 WEEKS 10,000-100,000 5-6 WEEKS 15,000-200,000 6-8 WEEKS 10,000-100,000 2-3 [facility] Urinalysis macro (dipstick) panel (U)on 01-02-2025 Bilirubin, UA Negative Negative - 4(70) +++ mg/dL [facility] Blood, UA Negative Negative - 50 Ronal/mcL [facility] Clarity, UA Clear [facility] Color, UA Yellow [facility] Glucose, UA Negative Negative - 2000(110) ++++ mg/dL [facility] Interpretation and review of laboratory results Normal [facility] Ketones, UA Negative Negative - 160(16) ++++ mg/dL [facility] Leukocytes, UA Negative Negative - 500+++ Gilbert/mcL [facility] Nitrite, UA Negative Negative - Positive [facility] pH, UA 6 5 - 9 [facility] Protein, UA Negative Negative - 2000(20) ++++ mg/dL [facility] Spec Grav, UA 1.025 1 - 1.03 [facility] Urobilinogen, UA 0.2 0.2 - 12 mg/dL [facility] 025 HCG QUANTITATIVE 114 mIU/mL [facility] Comment on above: 5-50 0.2-1 WEEK 50-500 1-2 WEEKS 100-5,000 2-3 WEEKS 500-10,000 3-4 WEEKS 1,000-50,000 4-5 WEEKS 10,000-100,000 5-6 WEEKS 15,000-200,000 6-8 WEEKS 10,000-100,000 2-3 MONTHS [facility] PREG QUANT HCGon 025 HCG QUANTITATIVE 292 mIU/mL [facility] Comment on above: 5-50 0.2-1 WEEK 50-500 1-2 WEEKS 100-5,000 2-3 WEEKS 500-10,000 3-4 WEEKS 1,000-50,000 4-5 WEEKS 10,000-100,000 5-6 WEEKS 15,000-200,000 6-8 WEEKS 10,000-100,000 2-[facility] 025 [place] [address] Ultrasound Report Signed Patient: CARINA BAKER MR#: [id number] : 1995 Acct:[id number] Age/Sex: 29 / F ADM Date: 11/22/24 Loc: US Attending Dr: Juan Voss D.O. Ordering Physician: Juan Voss D.O. Date of Service: 11/22/24 Procedure(s): US OB transvaginal Accession Number(s): [id number] cc: Juan Voss D.O.; Gregorio Garcia M.D. [place] [id number] Patient Name: CARINA BAKER MRN: [facility]:[id number] date: 1995 Sex: F Assigned Patient Location: Current Patient Location: Accession/Order Number: [id number] Exam Date: 11/22/2024 16:44 Report Date: 11/22/2024 16:47 At the request of: JUAN VOSS DO Procedure: US OB transvaginal OB [...] Jr., D.O. 11/22/2024 4:47 PM Dictation Location: [place] [address] Electronically authenticated by: [id number] Y Date: 11/22/2024 16:47 Dictated By: Brent Jonas M.D. Signed By: 11/22/24 1650 DD/ TD/TT: Senior Systems Developer: [facility]IE Radiology, Radiologi MD kristian - 11/22/2024 [place] [address] Ultrasound Report Signed Patient: CARINA BAKER MR#: [id number] : 1995 Acct:[id number] Age/Sex: 29 / F ADM Date: 11/22/24 Loc: US Attending Dr: Juan Voss D.O. Ordering Physician: Juan Voss D.O. Date of Service: 11/22/24 Procedure(s): US OB transvaginal Accession Number(s): [id number] cc: Juan Voss D.O.; Gregorio Garcia M.D. [place] [id number] Patient Name: CARINA BAKER MRN: [id number] date: 1995 Sex: F Assigned Patient Location: US Current Patient Location: US Accession/Order Number: [id number] Exam Date: 11/22/2024 16:44 Report Date: 11/22/2024 16:47 At the request of: JUAN VOSS DO Procedure: US OB transvaginal OB [...] Jr., D.O. 11/22/2024 4:47 PM Dictation Location: [place] [address] Electronically authenticated by: [id number] Y Date: 11/22/2024 16:47 Dictated By: Brent Jonas M.D. Signed By: 11/22/241649 DD/ 46 TD/TT: Senior Systems Developer: [facility] Study observation (narrative) [facility] US OB TRANSVAGINALOrdered By : Radiologist Radiology on 11-22-2024 [facility] Work Phone: [facility] PREG QUANT HCGon 025 HCG QUANTITATIVE <1 mIU/mL [facility] Comment on above: 5-50 0.2-1 WEEK 50-500 1-2 WEEKS 100-5,000 2-3 WEEKS 500-10,000 3-4 WEEKS 1,000-50,000 4-5 WEEKS 10,000-100,000 5-6 WEEKS 15,000-200,000 6-8 WEEKS 10,000-100,000 2-3 MONTHS [facility] Streptococcus pyogenes antig en detectionOrdered By: Katya Swartz on 10-17-2023 S. pyogenes Ag Ql (Unsp spec) [facility] Basophils Auto (Bld) [#/Vol] Ordered By: Katya Cerna on 05-06-2022 Basophils (Bld) [#/Vol] 0.0 10*3/uL 0.0-0.2 [facility] Basophils/100 WBC Auto (Bld) Ordered By: Katya Cerna on 05-06-2022 Basophils/100 WBC (Bld) 0.6 % . [facility] Body fluid albumin measureme nt (mass/volume)Ordered By: Katya Cerna on 05-06-2022 Albumin (Body fld) [Mass/Vol] 4.4 g/dL 3.2-5.5 [facility] Cholesterol [Mass/volume] in Serum or PlasmaOrdered By: Katya Cerna on 05-06-2022 Cholesterol [Mass/Vol] 191 mg/dL 140-200 [facility] Comment on above: Chol less than 200 m g/dl low riskChol 201-239 mg/dl borderline riskChol 240 mg/dl and greater high risk Cholesterol in LDL Calc [Mas s/Vol]Ordered By: Katya Cerna on 05-06-2022 Cholesterol in LDL [Mass/Vol] 103 mg/dL 0-100 [facility] Comment on above: LDL ATP III CLASSIFI CATIONLDL less than 100 mg/dL OptimalLDL 100-129 mg/dL Near or above optimalLDL 130-159 mg/dL Borderline highLDL 160-189 mg/dL HighLDL greater than 189 mg/dL Very high Cholesterol in VLDL Calc [Ma ss/Vol]Ordered By: Katya Cenra on 05-06-2022 Cholesterol in VLDL [Mass/Vol] 7 mg/dL [facility] Creatinine and Glomerular fi ltration rate.predicted panel (S/P/Bld)Ordered By: Katya Cerna on 05-06-2022 Creatinine [Mass/Vol] 0.63 mg/dL 0.44-1.03 [facility] Eosinophils Auto (Bld) [#/Vo l]Ordered By: Katya Cerna on 05-06-2022 Eosinophils (Bld) [#/Vol] 0.1 10*3/uL 0.0-0.45 [facility] Eosinophils/100 WBC Auto (Bl d)Ordered By: Katya Cerna on 05-06-2022 Eosinophils/100 WBC (Bld) 0.7 % . [facility] Erythrocyte distribution wid th Auto (RBC) [Ratio]Ordered By: Katya Cerna on 05-06-2022 Erythrocyte distribution width (RBC) [Ratio] 13.3 % 11.9-15.3 [facility] Estimated glomerular filtrat ion rate (GFR) non- AmericanOrdered By: Katya Cerna on 05-06-2022 GFR/1.73 sq M.predicted among non-blacks MDRD (S/P/Bld) [Vol rate/Area] > 60 mL/Min [facility] Globulin Calc (S) [Mass/Vol] Ordered By: Katya Cerna on 05-06-2022 Globulin (S) [Mass/Vol] 2.6 g/dL [facility] Hematocrit Auto (Bld) [Volum e fraction]Ordered By: Katya Cerna on 05-06-2022 Hematocrit (Bld) [Volume fraction] 42.9 % 34.0-46.4 [facility] Hemoglobin [Mass/volume] in BloodOrdered By: Katya Cerna on 05-06-2022 Hemoglobin (Bld) [Mass/Vol] 13.8 g/dL 11.8-15.4 [facility] Laboratory - Hematology and Cell countsOrdered By: Katya Cerna on 05-06-2022 Nucleated RBC/100 WBC (Bld) [Ratio] 0.1 % 0-0.5 [facility] Leukocytes [#/volume] in Blo od by Automated countOrdered By: Katya Cerna on 05-06-2022 WBC (Bld) [#/Vol] 7.6 10*3/uL 4.5-11.0 [facility] Lymphocytes Auto (Bld) [#/Vo l]Ordered By: Katya Cerna on 05-06-2022 Lymphocytes (Bld) [#/Vol] 2.6 10*3/uL 1.00-4.8 [facility] Lymphocytes/100 WBC Auto (Bl d)Ordered By: Katya Cerna on 05-06-2022 Lymphocytes/100 WBC (Bld) 34.7 % . [facility] MCH Auto (RBC) [Entitic mass ]Ordered By: Katya Cerna on 05-06-2022 MCH (RBC) [Entitic mass] 29.7 pg 24.7-34.3 [facility] MCHC Auto (RBC) [Mass/Vol]Or dered By: Katya Cerna on 05-06-2022 MCHC (RBC) [Mass/Vol] 32.2 g/dL 32.0-35.0 [facility] MCV Auto (RBC) [Entitic vol] Ordered By: Katya Cerna on 05-06-2022 MCV (RBC) [Entitic vol] 92.3 fL 80-100 [facility] Monocytes Auto (Bld) [#/Vol] Ordered By: Katya Cerna on 05-06-2022 Monocytes (Bld) [#/Vol] 0.5 10*3/uL 0.0-0.8 [facility] Monocytes/100 WBC Auto (Bld) Ordered By: Katya Cerna on 05-06-2022 Monocytes/100 WBC (Bld) 6.1 % . [facility] Neutrophils Auto (Bld) [#/Vo l]Ordered By: Katya Cerna on 05-06-2022 Neutrophils (Bld) [#/Vol] 4.4 10*3/uL 1.8-7.7 [facility] Neutrophils/100 WBC Auto (Bl d)Ordered By: Katya Cerna on 05-06-2022 Neutrophils/100 WBC (Bld) 57.9 % . [facility] No Panel InformationOrdered By: Katya Cerna on 05-06-2022 Estimated GFR () > 60 mL/Min [facility] Comment on above: GFR estimated refere nce range: According to KDOQI guidelines, <60 ml/min/1.73m2 is sufficient to diagnose a patient with chronic kidney disease. Pharmacy Creatinine Clearance (Chem N/A [facility] Platelet mean volume Auto (B ld) [Entitic vol]Ordered By: Katya Cerna on 05-06-2022 Platelet mean volume (Bld) [Entitic vol] 9.9 fL 6.3-10.7 [facility] Platelets Auto (Bld) [#/Vol] Ordered By: Katya Cerna on 05-06-2022 Platelets (Bld) [#/Vol] 253 10*3/uL 150-450 [facility] Protein [Mass/volume] in Ser um or PlasmaOrdered By: Katya Cerna on 05-06-2022 Protein [Mass/Vol] 7.0 g/dL 6.1-7.9 [facility] RBC Auto (Bld) [#/Vol]Ordere d By: Katya Cerna on 05-06-2022 RBC (Bld) [#/Vol] 4.65 10*6/uL 3.60-5.00 [facility] Serum or plasma alanine cochran otransferase measurement without P-5'-P (enzymatic activiOrdered By: Katya Cerna on 05-06-2022 ALT No additional P-5'-P [Catalytic activity/Vol] 14 U/L 10-60 [facility] Serum or plasma albumin/glob ulin mass ratioOrdered By: Katya Cerna on 05-06-2022 Albumin/Globulin [Mass ratio] 1.7 {ratio} [facility] Serum or plasma alkaline jeremy sphatase measurement (enzymatic activity/volume)Ordered By: Katya Cerna on 05-06-2022 ALP [Catalytic activity/Vol] 42 U/L 32-92 [facility] Serum or plasma anion gap de terminationOrdered By: Katya Cerna on 05-06-2022 Anion gap [Moles/Vol] 13.3 mmol/L 6.0-15.0 [facility] Serum or plasma aspartate am inotransferase measurement (enzymatic activity/volume)Ordered By: Katya Cerna on 05-06-2022 AST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 above: Performed By: #### 2 [id number] ####[address] [address] U Drug Screenon 09-10-2017 Amphetamines Screen method >1000 ng/mL Ql (U) Negative Normal Negative [facility] Comment on above: Result Comment: Nega tive Cutoff: <1000 ng/mL Performed By: #### 2 7005551, [id number], 5253471 ####[address] [address] Barbiturates Screen Ql (U) Negative Normal Negative [facility] Comment on above: Result Comment: Nega tive Cutoff: <200 ng/mL Performed By: #### 2 4984207, 18164318, 9535477 ####[place] [address] [place] [address] Benzodiazepines Screen Ql (U) Negative Normal Negative [facility] Comment on above: Result Comment: Nega tive Cutoff: <200 ng/mL Performed By: #### 2 3776073, 54488839, 9889076 ####[address] [address] Cocaine Ql (U) Negative Normal Negative [facility] Comment on above: Result Comment: Nega tive Cutoff: <300 ng/mL Performed By: #### 2 6596694, 95594045, 3741908 ####[facility] [place] [address] Opiates Screen Ql (U) Negative Normal Negative [facility] Comment on above: Result Comment: Nega tive Cutoff: <300 ng/mL Performed By: #### 2 6734269, 01636258, 7077809 ####[facility] [address] [place] [address] Phencyclidine Screen method >25 ng/mL Ql (U) Negative Normal Negative [facility] Comment on above: Result Comment: Nega tive Cutoff: <25 ng/mLThese drug screen results are to be used for medical (i.e., treatment) purposes only. Unconfirmed drug screening results must not be used for non-medical purposes (e.g., employment testing, legal testing). Performed By: #### 2 [id number], 85502462, 5141430 ####[facility] [address] [place] [address] Tetrahydrocannabinol Screen method >50 ng/mL Ql (U) Negative Normal Negative [facility] Comment on above: Result Comment: Nega tive Cutoff: <50 ng/mL Performed By: #### 2 9256593, 84963568, 7421625 ####[facility] [address] [place] [address] eGFRon 09-10-2017 GFR/1.73 sq M predicted among blacks MDRD vol rate/area (S/P/Bld) mL/min/{1.73_m2} Normal >=59 [facility] Comment on above: Order Comment: Order added by Discern Expert. Result Comment: eGFR is race adjusted. AA=. Performed By: #### 2 4744804, 76244480, 7289979 ####[facility] [address] [place] [address] GFR/1.73 sq M predicted among non-blacks MDRD vol rate/area (S/P/Bld) mL/min/{1.73_m2} Normal >=59 [facility] Comment on above: Order Comment: Order added by Discern Expert. Result Comment: Director Of Advertising Sales lona kidney disease could be indicated at eGFR's of less than 60 mL/min/1.73m2. Kidney failure is indicated at less than 15 mL/min/1.73m2. Performed By: #### 2 [id number], 79800660, 2537713 ####[facility] [address] [place] [address] ED Note-Physicianon 07-12-20 ED Note-Physician Patient: JEREMIE [...] . Impression and Plan Diagnosis Acute UTI ([id number]-FC N39.0, Discharge, Medical) Pharyngitis (LID97-OY J02.9, Discharge, Medical) Plan Disposition: Discharged: Time [...] the following educational materials: Urinary Tract Infection, Ycyj-hs-Crnj, Urinary Tract Infection, Fofp-zp-Okjs, Upper Respiratory Infection, Adult, Upper Respiratory Infection, Adult, Urinary Tract Infection, Ehda-yj-Vmzj, Upper Respiratory Infection, Adult, Urinary Tract Infection, Vroj-jq-Kizn. Follow up with: XXXX NONE In 3 days 06/16/2017, XXXX NONE In 3 days 06/16/2017; Follow-up for [address] Atkinson in [facility] In 3 days 06/16/2017. Counseled: Patient, Family, Regarding diagnosis, Regarding diagnostic results, Regarding treatment plan, Regarding prescription, Patient indicated understanding of instructions. Normal [facility] Comment on above: Result Comment: Elec [...] IsolatedPerforming LocationsR1: This test was performed at: [facility], [address] [place] [address], [address]- , [facility] Comment on above: Performed By: #### 2 [id number] ####[facility] [address] [place], [place] [address] Urineon 06-15-2017 Bacteria identified Cx Nom (U) [...] SSulfaPerforming LocationsR1: This test was performed at: [facility], [address] [place] [address], [address]- , [facility] Comment on above: Performed By: #### 2 [id number], [id number], 4677169 ####[facility] [address] [place] [address] Coding Summary.on 06-15-2017 Coding Summary. CODING DATE: 017 FINAL [facility] STATUS: Home (Routine DC) PAYOR: Self Pay [...] in slightly different terminology. Revised Coded By: Flewelling, Sofie Revised Date Saved: 06/15/2017 04:56 pm Normal [facility] ED Clinical Summaryon 2016 ED Clinical Summary (Inserted Image. Mireya ble to display) [id number] [place] [id number] ED Clinical SummaryPerson Information Name: CARINA GOODEN/Ivone Age: 22 Years : 1995 12:00 AM Sex: Female Language:Brazilian PCP: NONE, XXXX Marital Status:Single Visit Id: [...] PM 06/13/2017 7:46 PM 06/13/2017 7:46 PM ADDRESS:[address] [place] [address] [facility] DOC NOTES: MEDICAL INFORMATION: Prescriptions Given:Prescription Display cephalexin (Keflex 500 mg Cap) 500 mg = 1 cap(s), Oral, q6hr, X 7 day(s), # 28 cap(s), Refills(s) 0 Home Meds Display ethinyl estradiol-norgestimate (TriNessa oral tablet) Refill(s) 0 fluoxetine (FLUoxetine 10 mg Cap) Refills(s) 0 PATIENT EDUCATION INFORMATION: Instructions:Upper Respiratory Infection, Adult; Urinary Tract Infection, Ftet-je-Ogdi Follow up:With: Address: When: Follow-up for [address] Atkinson in [facility] In 3 days 06/16/2017 With: Address: When: XXXX NONE , [place] In 3 days 06/16/2017 DIAGNOSIS:Acute UTI; Pharyngitis Normal [facility] ED Patient Education Noteon 06-13-2017 ED [...] other symptoms. HOME CARE INSTRUCTIONS? Only take rqmu-wsr-ddivrbj or prescription medicines for pain, discomfort, or [...] 09/26/2012 Document Reviewed: 10/10/2014ExitCare? Patient Information ?2015 [email or web address]. This information is not intended to replace [...] 03/29/2013 Document Reviewed: 02/02/2013ExitCare? Patient Information ?2014 [email or web address]. This information is not intended to replace advice given to you by your health care provider. Make sure you discuss any questions you have with your health care provider. Normal [facility] ED Patient Summaryon 017 ED Patient Summary (Inserted Image. Mireya ble to display) [address] [address] Patient Discharge Instructions Person Information Name: CARINA GOODEN Age: 22 Years Date: 06/13/2017 6:37 PMDischarge Diagnosis: Acute UTI; Pharyngitis Primary Care Physician: NONE, XXXX Provider InformationPrimary Provider: Rony GUZMAN, ArnaldoylPhysicilaura Associate Automation Engineer:None The exam and treatment you received in the Emergency Department were for an urgent problem and are not intended as complete care. It is important that you follow up with a doctor, nurse practitioner, or physician?s plastic surgery assistant for ongoing care. If your symptoms become worse or you do not improve as expected and you are unable to reach your usual health care provider, you should return to the Emergency Department. We are available 24 hours a day. CARINA GOODEN has been given the following list of patient education materials, prescriptions and follow-up instructions: Follow-up Instructions:With: Address: When: Follow-up for [address] Atkinson in [facility] In 3 days 06/16/2017 With: Address: When: XXXX [place], [place] In 3 days 06/16/2017 In the event that this physician does not participate in your insurance network, please consult with your insurance company to find a nearby participating provider. Patient Education Materials:Upper Respiratory Infection, Adult; Urinary Tract Infection, Zpsy-jd-Hiwd Medications Given:Medication Dose Route cephalexin 500.00 mg Oral Medication Information:New MedicationsPrinted Prescriptionscephalexin (Keflex 500 mg Cap) 1 Capsules By Mouth every 6 hours for 7 Days. Refills: 0.Medications to Continue with No ChangesOther Medicationsethinyl estradiol-norgestimate (TriNessa oral tablet) fluoxetine (FLUoxetine 10 mg Cap) Comment: Pharmacy Information: Thank you for choosing [facility] Patient Education Materials: Upper Respiratory Infection, [...] other symptoms. HOME CARE INSTRUCTIONS? Only take rdeh-cpy-guwedfo or prescription medicines for pain, discomfort, or [...] 09/26/2012 Document Reviewed: 10/10/2014ExitCare? Patient Information ?2015 [email or web address]. This information is not intended to replace [...] 03/29/2013 Document Reviewed: 02/02/2013ExitCare? Patient Information ?2014 [email or web address]. This information is not intended to replace advice given to you by your health care provider. Make sure you discuss any questions you have with your health care provider.GIACOMO Barrios ALICYN D , have received the following patient education materials/instructions and have verbalized understanding: Patient Education Materials: Upper Respiratory Infection, Adult; Urinary Tract Infection, Flpn-oe-Zrql Follow-up Instructions: With: Address: When: Follow-up for [address] Atkinson in [facility] In 3 days 06/16/2017 With: Address: When: XXXX NONE , [place] In 3 days 06/16/2017 Prescriptions: [cephalexin (Keflex 500 mg Cap)] Patient Signature Date Clinician/Nurse Signature Date 06/13/17 19:46:34 Normal [facility] U BetaHcg Qualon 06-13-2017 HCG.beta subunit molar conc (U) Negative Normal [facility] Comment on above: Performed By: #### 2 [id number], [id number], 3597044 ####[facility] [address] [address] UA With Cult Reflexon 2016 Bacteria LM Ql (Urine sed) TRACE Normal Trace [facility] Comment on above: Performed By: #### 2 5354733, 32702266, 9200437 ####[facility] [address] [place] [address] Bilirubin Ql (U) Negative Normal Negative [facility] Comment on above: Performed By: #### 2 0544617, 60734946, 7158531 ####[facility] [address] [place] [address] Clarity Nom (U) CLEAR Normal Clear [facility] Comment on above: Performed By: #### 2 1789734, 98663179, 0959937 ####[facility] [address] [place] [address] Color Auto Nom (U) STRAW Abnormal Yellow [facility] Comment on above: Performed By: #### 2 1188778, 37671153, 0789247 ####[facility] [address] [place] [address] Epithelial cells.squamous LM.HPF #/area (Urine sed) 0-2 Normal 0-2 [facility] Comment on above: Performed By: #### 2 6361989, 83688650, 8024157 ####[facility] [address] [place] [address] Glucose Test strip mass conc (U) Negative Normal Negative [facility] Comment on above: Performed By: #### 2 1951914, 14058060, 4958066 ####[facility] [address] [place] [address] Hemoglobin Test strip Ql (U) TRACE Abnormal Negative [facility] Comment on above: Performed By: #### 2 5415500, 55165293, 3684426 ####[facility] [address] [place] [address] Ketones mass conc (U) Negative Normal Negative [facility] Comment on above: Performed By: #### 2 3091256, 45006595, 2857465 ####[facility] [address] [place] [address] [place].plasma/Lithiu m.RBC mass ratio (Bld) 0-3 Normal 0-3 [facility] Comment on above: Performed By: #### 2 0781015, 60480409, 1789149 ####[address] [address] Mucus LM Ql (Urine sed) 1+ Normal [facility] Comment on above: Performed By: #### 2 8886235, 86647637, 3089998 ####[address] [address] Nitrite Test strip Ql (U) Negative Normal Negative [facility] Comment on above: Performed By: #### 2 4417902, 93658348, 2473366 ####[address] [address] pH Test strip (U) 5.5 [pH] Invalid Interpretation Code 5.0-9.0 [facility] Comment on above: Performed By: #### 2 1743614, 42105304, 0430100 ####[place] [address] Protein mass conc (U) Negative Normal Negative [facility] Comment on above: Performed By: #### 2 9692824, 26875009, 2256297 ####[place] [address] Specific gravity Relative Density (U) 1.020 Invalid Interpretation Code 1.005-1.03 0 [facility] Comment on above: Performed By: #### 2 [id number], 51964723, 3391838 ####[address] [address] UA Spec Desc Clean Catch Normal [facility] Comment on above: Performed By: #### 2 4541343, 47157736, 9960494 ####[address] [address] Urobilinogen Test strip Qn (U) 0.2 {Krista'U}/dL Normal 0.0-1.0 [facility] Comment on above: Performed By: #### 2 2584880, 75244318, 2665758 ####[facility] [address] [place] [address] WBC Auto Ql (U) 1+ Abnormal Negative [facility] Comment on above: Performed By: #### 2 7432796, 99731478, 9408764 ####[facility] [address] [place] [address] WBC LM.HPF #/area (Urine sed) 16-25 Abnormal 0-5 [facility] Comment on above: Performed By: #### 2 6336321, 49365926, 2947999 ####[facility] [address] [place] [address] Vital Signs Date Time Vital Sign Value Performing Clinician Facility 02-27-2025 09:34-0400 Body mass index (BMI) [Ratio] 24.55 kg/m2 Juan Bipin DO Work Phone: [facility] 02-27-2025 09:34-0400 Body weight 64.86 kg Juan Bipin DO Work Phone: [facility] 02-27-2025 09:34-0400 Diastolic blood pressure 70 mm[Hg] Juan Bipin DO Work Phone: [facility] 02-27-2025 09:34-0400 Systolic blood pressure 118 mm[Hg] Juan Bipin DO Work Phone: [facility] 01-26-2025 11:25-0400 Body mass index (BMI) [Ratio] 24.72 kg/m2 Bipin [facility] 01-26-2025 11:25-0400 Body weight 65.32 kg Bipin Ob [facility] 01-26-2025 11:25-0400 Diastolic blood pressure 70 mm[Hg] Bipin Ob [facility] 01-26-2025 11:25-0400 Systolic blood pressure 110 mm[Hg] Bipin [facility] 01-02-2025 11:11-0400 Body height 162.6 cm Juan Bipin DO Work Phone: [facility] 01-02-2025 11:11-0400 Body mass index (BMI) [Ratio] 25.4 kg/m2 Juan Bipin DO Work Phone: [facility] 01-02-2025 11:11-0400 Body weight 67.13 kg Juan Bipin DO Work Phone: [facility] 01-02-2025 11:11-0400 Diastolic blood pressure 70 mm[Hg] Juan Bipin DO Work Phone: [facility] 01-02-2025 11:11-0400 Systolic blood pressure 110 mm[Hg] Ujan Bipin DO Work Phone: [facility] 08-22-2024 15:06-0500 Body mass index (BMI) [Ratio] 26.45 kg/m2 Juan Bipin DO Work Phone: [facility] 08-22-2024 15:06-0500 Body weight 66.13 kg Juan Bipin DO Work Phone: [facility] 08-22-2024 15:06-0500 Diastolic blood pressure 60 mm[Hg] Juan Bipin DO Work Phone: [facility] 08-22-2024 15:06-0500 Systolic blood pressure 118 mm[Hg] Juan Bipin DO Work Phone: [facility] 10-17-2023 11:50-0400 Body height 162.56 cm RAT EXTERMINATOR Katya Sheridan Work Phone: [facility] 10-17-2023 11:50-0400 Body temperature 97.9 [degF] RAT EXTERMINATOR Katya Sheridan Work Phone: [facility] 10-17-2023 11:50-0400 Body weight 66.1 kg RAT EXTERMINATOR Katya Sheridan Work Phone: [facility] 10-17-2023 11:50-0400 Diastolic blood pressure 60 mm[Hg] RAT EXTERMINATOR Katya Sheridan Work Phone: [facility] 10-17-2023 11:50-0400 Heart rate 91 /min RAT EXTERMINATOR Katya Sheridan Work Phone: [facility] 10-17-2023 11:50-0400 Respiratory rate 16 /min RAT EXTERMINATORAshley Swartz Work Phone: [facility] 10-17-2023 11:50-0400 SaO2% (BldA) [Mass fraction] 97 % RAT EXTERMINATORAhsley Swartz Work Phone: [facility] 10-17-2023 11:50-0400 Systolic blood pressure 126 mm[Hg] RAT EXTERMINATORAshley Swartz Work Phone: [facility] Encounters Encounter Date Encounter Type Care Provider Facility Start: 03-21-2025 End: 03-21-2025 ambulatory JUAN BIPIN Not Available Start: 03-21-2025 End: 03-21-2025 Online digital e/m svc est pt <7 d 5-10 minutes Juan Bipin DO Work Phone: [facility] Comment on above: Spontaneous miscarri age ([facility]) Start: 03-15-2025 End: 03-15-2025 Bamboo flowsheet Katya L [place] DO Work Phone: [facility] Start: 03-15-2025 End: 03-15-2025 Bamboo flowsheet Katya L [place] DO Work Phone: [facility] Start: 03-15-2025 End: 03-15-2025 ambulatory KATYA L CUTLER Not Available Start: 03-01-2025 End: 03-01-2025 Clinisync Result Encounter Juan Bipin DO Work Phone: [facility] Unsolicited Start: 03-01-2025 End: 03-01-2025 Clinisync Result Encounter Juan Bipin DO Work Phone: [facility] Unsolicited Start: 03-01-2025 End: 03-01-2025 ambulatory Gregorio Garcia MD Work Phone: [facility] Work Phone: Start: 03-01-2025 End: 03-01-2025 Departed Referred Juan Bipin -[facility] Start: 02-27-2025 End: 02-27-2025 Bamboo flowsheet Juan Bipin DO Work Phone: [facility] Start: 02-27-2025 End: 02-27-2025 Bamboo flowsheet Juan Bipin DO Work Phone: [facility] Start: 02-27-2025 ambulatory JUAN BIPIN Not Availa ble Start: 02-27-2025 End: 02-27-2025 flow sheet Juan Bipin DO Work Phone: [facility] Comment on above: 12 weeks gestation o f ([facility]); First trimester ([facility]); Threatened miscarriage in early ([facility]) Start: 02-27-2025 End: 02-27-2025 ambulatory JUAN BIPIN Not Available Start: 02-02-2025 End: 02-02-2025 Clinisync Result Encounter Juan Bipin DO Work Phone: [facility] Unsolicited Start: 02-02-2025 End: 02-02-2025 Clinisync Result Encounter Juan Bipin DO Work Phone: [facility] Unsolicited Start: 01-26-2025 End: 01-26-2025 Office outpatient visit 5 minutes Bipin Nurse [facility] Comment on above: GA: 8w0d Start: 01-26-2025 End: 01-26-2025 ambulatory JUAN BIPIN Not Available Start: 01-10-2025 End: 01-10-2025 ambulatory JUAN BIPIN Not Available Start: 01-08-2025 End: 01-08-2025 Clinisync Result Encounter Juan Bipin DO Work Phone: [facility] Unsolicited Start: 01-08-2025 End: 01-08-2025 Clinisync Result Encounter Juan Bipin DO Work Phone: [facility] Unsolicited Start: 01-06-2025 End: 01-06-2025 Clinisync Result Encounter Juan Bipin DO Work Phone: [facility] Unsolicited Start: 01-06-2025 End: 01-06-2025 Clinisync Result Encounter Juan Bipin DO Work Phone: [facility] Unsolicited Start: 01-02-2025 End: 01-02-2025 Bamboo flowsheet Juan Bipin DO Work Phone: [facility] Start: 01-02-2025 End: 01-02-2025 Bamboo flowsheet Juan Bipin DO Work Phone: [facility] Start: 01-02-2025 End: 01-02-2025 ambulatory JUAN BIPIN Not Available Start: 01-02-2025 End: 01-02-2025 Office outpatient visit 15 minutes Juan Bipin DO Work Phone: [facility] Comment on above: Miscarriage ([facility] ) Start: 11-27-2024 End: 11-27-2024 Clinisync Result Encounter Juan Bipin DO Work Phone: [facility] Unsolicited Start: 11-27-2024 End: 11-27-2024 Clinisync Result Encounter Juan Bipin DO Work Phone: [facility] Unsolicited Start: 11-24-2024 End: 11-24-2024 Clinisync Result Encounter Juan Bipin DO Work Phone: [facility] Unsolicited Start: 11-24-2024 End: 11-24-2024 Clinisync Result Encounter Juan Bipin DO Work Phone: [facility] Unsolicited Start: 11-22-2024 End: 11-22-2024 Clinisync Result Encounter Juan Bipin DO Work Phone: [facility] Unsolicited Start: 11-22-2024 End: 11-22-2024 Clinisync Result Encounter Juan Bipin DO Work Phone: [facility] Unsolicited Start: 08-28-2024 End: 08-28-2024 Clinisync Result Encounter Juan Bipin DO Work Phone: [facility] Unsolicited Start: 08-28-2024 End: 08-28-2024 Clinisync Result Encounter Juan Bipin DO Work Phone: [facility] Unsolicited Start: 08-22-2024 End: 08-22-2024 Office outpatient visit 15 minutes Juan Bipin DO Work Phone: [facility] Comment on above: Encounter for fertil ity planning; PCOS (polycystic ovarian syndrome); Hormone imbalance Start: 08-22-2024 End: 08-22-2024 Bamboo flowsheet Juan Bipin DO Work Phone: [facility] Start: 08-22-2024 End: 08-22-2024 Bamboo flowsheet Juan Bipin DO Work Phone: [facility] Start: 08-22-2024 End: 08-22-2024 ambulatory JUAN BIPIN Not Available Start: 10-17-2023 End: 10-17-2023 Emergency department patient visit RAT EXTERMINATORAshley Swartz Work Phone: [facility] Work Phone: Start: 05-06-2022 End: 05-06-2022 ambulatory DO Katya Cerna Work Phone: [facility] Work Phone: Start: 05-06-2022 End: 05-06-2022 Patient encounter procedure DO Katya Cerna Work Phone: [facility] [place] Start: 02-26-2020 End: 02-27-2020 Patient encounter procedure ROCCO WEBBER Facility: Start: 02-02-2018 End: 02-03-2018 Patient encounter Mirza Cheng Facility:[id number] Start: 01-28-2018 End: 01-29-2018 Patient encounter Mirza Cheng Facility:[id number] Start: 09-10-2017 End: 09-10-2017 Emergency department patient visit XXXX NONE Facility:[facility] Start: 06-13-2017 End: 06-13-2017 Emergency department patient visit XXXX NONE Facility:[facility] [place] Procedures Date Procedure Procedure Detail Performing Clinician Start: 03-01-2025 Us uterus l imited 1/> fetuses Juan Bipin DO Work Phone: Start: 03-01-2025 ALL CBC WITH AUTO DIFF Juan Bipin DO Work Phone: Start: 02-27-2025 Us preg uterus real time w/image dcmtn transvag Juan Bipin DO Work Phone: Start: 02-27-2025 Urnls dip stick/tabl et rgnt non-auto w/o micrscp Juan Bipin DO Work Phone: Start: 02-02-2025 BOX TEST Juan Fazi o DO Work Phone: Start: 01-26-2025 Urnls dip stick/tabl et rgnt non-auto w/o micrscp Juan Bipin DO Work Phone: Start: 01-08-2025 [facility] PREG QUANT HCG Core y Bipin DO Work Phone: Start: 01-06-2025 [facility] PREG QUANT HCG Core y Bipin DO Work Phone: Start: 01-02-2025 Urnls dip stick/tabl et rgnt non-auto w/o micrscp Juan Bipin DO Work Phone: Start: 11-27-2024 [facility] PREG QUANT HCG Core y Bipin DO Work Phone: Start: 11-24-2024 [facility] PREG QUANT HCG Core y Bipin DO Work Phone: Start: 11-22-2024 US OB TRANSVAGINAL Core y Bipin DO Work Phone: Start: 08-28-2024 [facility] PREG QUANT HCG Core y Bipin DO Work Phone: Start: 10-17-2023 Streptococcus pyogen es antigen assay RAT EXTERMINATOR Katya Swartz Work Phone: Plan of Treatment Date Care Activity Detail Author Start: 04-18-2025 End: 04-18-2025 Patient encounter procedure 04/18/2025 5:20 PM EDT Office Visit [facility] [address] [place] [phone] Katya Cerna, DO [address] [place], [place] [id number] [facility] Start: 03-19-2025 Influenza vaccination Influenza Vacc ine (#1) [facility] Start: 03-15-2025 End: 03-15-2025 Patient encounter procedure 03/15/2025 2:00 PM EDT Office Visit [facility] [address] [place] [phone] Katya Cerna, DO [address] [place] [address] Arrived [facility] 230 Comment on above: Arrived Start: 02-27-2025 End: 02-27-2025 Patient encounter procedure [facility] Comment on above: Arrived Start: 01-26-2025 End: 01-26-2026 ABO/Rh ABO/Rh Lab Routine Missed menses , unspecified gestational age ([facility]) Expected: 01/26/2025 (Approximate), Expires: 01/26/2026 [facility] Comment on above: Expected: 01/26/2025 (Approximate), Expires: 01/26/2026 Start: 01-26-2025 End: 01-26-2026 Blood type and Indirect antibody screen panel - Blood Type and screen Lab Routine Missed menses , unspecified gestational age ([facility]) Expected: 01/26/2025 (Approximate), Expires: 01/26/2026 [facility] Work Phone: Comment on above: Expected: 01/26/2025 (Approximate), Expires: 01/26/2026 Start: 01-26-2025 End: 01-26-2026 Drugs of abuse panel - Urine by Screen method Rapid drug screen, urine Lab Routine , unspecified gestational age ([facility]) Encounter for supervision of normal first in first trimester ([facility]) Expected: 01/26/2025 (Approximate), Expires: 01/26/2026 [facility] Comment on above: Expected: 01/26/2025 (Approximate), Expires: 01/26/2026 Start: 12-08-2024 End: 12-08-2024 ambulatory 12/08/2024 10:00 AM EDT Initial [facility] [address] [place] [phone] [facility] Start: 12-08-2024 End: 12-08-2024 Professional / ancillary services management 12/08/2024 9:30 AM EDT Ancillary Procedure [facility] [address] [facility] [place] [phone] [facility] Start: 08-22-2024 End: 08-22-2024 Patient encounter procedure 08/22/2024 2:10 PM EST Office Visit [facility] [address] [facility] [phone] Juan Voss, DO [address] [place] [address] Arrived [facility] Comment on above: Arrived Start: 08-22-2024 End: 08-22-2025 DHEA DHEA Lab Routine PCOS (polycystic ovarian syndrome) Expected: 08/22/2024 (Approximate), Expires: 08/22/2025 [facility] Comment on above: Expected: 08/22/2024 (Approximate), Expires: 08/22/2025 Start: 10-17-2023 SARS-CoV-2, Influenz a & RSV (PCR) SARS-CoV-2, Influenza & RSV (PCR) [facility] Start: 10-17-2023 [facility] Bacteria identified in Urine by Culture Urine culture Microbiology Routine Missed menses Ordered: 01/26/2025 [facility] Comment on above: Ordered: 01/26/2025 CBC W Auto Different ial panel - Blood CBC and differential Lab Routine PCOS (polycystic ovarian syndrome) Ordered: 08/22/2024 [facility] Comment on above: Ordered: 08/22/2024 CBC W Auto Different ial panel - Blood CBC and differential Lab Routine Missed menses , unspecified gestational age ([facility]) Ordered: 01/26/2025 [facility] Comment on above: Ordered: 01/26/2025 DHEA-sulfate DHEA-sulfate Lab Routine PCOS (polycystic ovarian syndrome) Ordered: 08/22/2024 [facility] Comment on above: Ordered: 08/22/2024 Follicle stimulating hormone Follicle stimulating hormone Lab Routine PCOS (polycystic ovarian syndrome) Ordered: 08/22/2024 [facility] Comment on above: Ordered: 08/22/2024 hCG, quantitative, hCG, quantitative, Lab Routine PCOS (polycystic ovarian syndrome) Ordered: 08/22/2024 [facility] Work Phone: Comment on above: Ordered: 08/22/2024 Hemoglobin A1c/Hemoglobin.total in Blood Hemoglobin A1c Lab Routine Hormone imbalance Ordered: 08/22/2024 [facility] Comment on above: Ordered: 08/22/2024 Hemoglobin A1c/Hemoglobin.total in Blood Hemoglobin A1c Lab Routine Missed menses , unspecified gestational age ([facility]) Ordered: 01/26/2025 [facility] Comment on above: Ordered: 01/26/2025 Hepatitis B virus surface Ag [Presence] in Serum or Plasma by Immunoassay Hepatitis B surface antigen Lab Routine Missed menses , unspecified gestational age ([facility]) Ordered: 01/26/2025 [facility] Comment on above: Ordered: 01/26/2025 Hepatitis C virus Ab [Presence] in Serum or Plasma by Immunoassay Hepatitis C antibody Lab Routine Missed menses , unspecified gestational age ([facility]) Ordered: 01/26/2025 [facility] Comment on above: Ordered: 01/26/2025 HIV-1/HIV-2 antigen/antibody combination immunoassay HIV-1 and HIV-2 antibodies Lab Routine Missed menses , unspecified gestational age ([facility]) Ordered: 01/26/2025 [facility] Comment on above: Ordered: 01/26/2025 Luteinizing hormone Luteinizing hormone Lab Routine PCOS (polycystic ovarian syndrome) Ordered: 08/22/2024 [facility] Comment on above: Ordered: 08/22/2024 Patient Education Strep Throat (DC) [facility] Work Phone: Patient referral [facility] Work Phone: Progesterone Progesterone Lab Routine Hormone imbalance Ordered: 08/22/2024 [facility] Comment on above: Ordered: 08/22/2024 Reagin Ab [Presence] in Serum by RPR RPR Lab Routine Missed menses , unspecified gestational age ([facility]) Ordered: 01/26/2025 [facility] Comment on above: Ordered: 01/26/2025 Rubella antibody, IgG Rubella an tibody, IgG Lab Routine Missed menses , unspecified gestational age ([facility]) Ordered: 01/26/2025 [facility] Comment on above: Ordered: 01/26/2025 Thyrotropin [Units/volume] in Serum or Plasma TSH Lab Routine PCOS (polycystic ovarian syndrome) Ordered: 08/22/2024 [facility] Comment on above: Ordered: 08/22/2024 Thyroxine (T4) free [Mass/volume] in Serum or Plasma T4, free Lab Routine PCOS (polycystic ovarian syndrome) Ordered: 08/22/2024 [facility] Comment on above: Ordered: 08/22/2024 Immunizations Immunization Date Immunization Notes Care Provider Jose Alberto arreola 04-23-2021 influenza virus vacc ine, unspecified formulation Juan Voss DO Work Phone: [facility] Payers Date Payer Category Payer [facility] BCBS [id number] 2025 Unknown [id number] 2021 Private Health Insurance [facility] [id number] 2021 Unknown [id number] 2017 Self-pay 1997 Unknown [id number]. [id number] 1997 Unknown [id number]. 2.1258 1997 Unknown [id number] [id number]. 2.1258 1997 Unknown [id number] [id number]. 2.1258 1997 Unknown [id number] 2.16.840.1.801313.3.579. 2.9 1997 Unknown [id number] 2.16.840.1.184809.3.579. 2.1258 1997 Unknown [id number] 2.16.840.1.651805.3.579. 2.1259 1997 Unknown [id number] 2.16.840.1.021890.3.579. 2.1259 1997 Unknown [id number] [id number]. 2.1259 1997 Unknown [id number] 2.16.840.1.119259.3.579. 2.1259 1959 Unknown [id number] Private Health Insurance [facility] [id number] Unknown Valerie VELOZ/JACOBO [id number] Unknown [id number]. 2.531 Social History Date Type Detail Facility Tobacco smoking stat us [facility] Unknown if ever smoked [facility] Work Phone: Start: 1995 Sex Assigned At Female F [facility] Start: 10-17-2023 End: 03-15-2025 Tobacco smoking status [facility] Never smoked tobacco (finding) [facility] Start: 07-13-2023 End: 2025 Alcoholic beverage intake Current drinker of alcohol (finding) [facility] Start: 07-08-2023 End: 03-15-2025 History of Social function [facility] Start: 07-08-2023 End: 03-15-2025 Alcohol Use Disorder Identification Test - Consumption [...] [facility] Start: 12-15-2024 [facility] Sex Female (finding) [facility] Start: 03-15-2025 Tobacco use and exposure Smoke less tobacco non-user [facility] NEGATED: Highlighted row [facility] Clinical Notes 08-22-2024 to 03-21-2025 Ana [place]ina Romero LPN - 03/21/2025 8:00 AM Tiago Romero LPN - 02/27/2025 9:20 AM EDTMlinda Sheikh MA - 01/26/2025 10:30 AM Tiago Romero LPN - 01/02/2025 10:50 AM EDT Note Date & Type Note Facility 03-21-2025 History of Present illness Narrative Reason for Appointment: Patient ID: Carina Baker is a 30 y.o. female who presents for No chief complaint on file. Patient presents today via telephone call for a telehealth appointment. Patients Phone #: [phone] (mobile) Date: 03/21/2025 Time: 11:08 AM of the visit Platform Used: Audio call performed via in house telephone system. Location of Patient and Provider: Patient at home, provider at clinic Consent for Telehealth: Patient provided verbal consent to conduct the visit virtually via audio only phone call Current Medications: has a current medication list which includes the following prescription(s): alprazolam, escitalopram, and ondansetron odt. Medical History: Active Ambulatory Problems Diagnosis Date Noted Moderate episode of recurrent major depressive disorder (HCC) 03/15/2025 Mild episode of recurrent major depressive disorder 03/15/2025 Anxiety disorder 03/15/2025 Resolved Ambulatory Problems Diagnosis Date Noted Vaginal high risk human papillomavirus (HPV) DNA test positive 03/15/2025 Subacute vaginitis 03/15/2025 Dysmenorrhea 03/15/2025 Ganglion cyst 03/15/2025 Past Medical History: Diagnosis Date Anxiety with depression C. difficile colitis 2013 demise due to miscarriage ([facility]) 03/01/2025 History of medical problems Family History Problem Relation Name Age of Onset Other (Stage 2 Carcinoma) Mother Gallbladder disease Mother Thyroid disease Mother Hypertension Mother Other (Appendix Cancer) Father No Known Problems Sister 3 sisters No Known Problems Brother 2 brothers Prostate cancer Maternal Grandfather Social History Tobacco Use Smoking status: Never Smokeless tobacco: Never Vaping Use Vaping status: Never Used Substance Use Topics Alcohol use: Yes Comment: [...] Reaction Vitals: Estimated body mass index is 24.17 kg/m as calculated from the following: Height as of 03/15/25: 5' 4 . Weight as of 03/15/25: 140 lb 12.8 oz. BP: No LMP recorded. Assessment/Plan Encounter Diagnosis Name Primary? Spontaneous miscarriage ([facility]) Pt had miscarriage and delivered fetus on 03/01/25. Pathology reviewed with pt in great detail. Reviewed labs with pt in detail. Pt desires to discuss next steps. Discussed tsh and keeping between 2.5-3. Discussed adding synthroid 25mcg. Pt will be seeing MATHEW to aid in answers for miscarriage. Pt will start progesterone suppositories once . Today's telehealth visit consisted of spending 12 minutes talking to patient on the phone. Documented by Ana [place]ina Romero LPN on behalf of: Juan Voss DO documented in this encounter [facility] 02-27-2025 History of Present illness Narrative Reason for Appointment: Patient ID: Carina Baker is a 29 y.o. female who [...] nursing note reviewed. Exam conducted with a warp trucker present. Vitals: Estimated body mass index is 24.55 kg/m as calculated from the following: Height as of 01/02/25: 5' 4 . Weight as of this encounter: 143 lb. BP: 118/70 No LMP recorded (lmp unknown). Patient is . ASSESSMENT & PLAN ICD-10-CM 1. 12 weeks gestation of ([facility]) Z3A.12 POCT urinalysis dipstick manually resulted 2. First trimester ([facility]) Z34.91 POCT urinalysis dipstick manually resulted New [...] Juan Voss DO documented in this encounter [facility] 01-26-2025 History of Present illness Narrative Reason for Appointment: Patient ID: Carina Baker is a 29 y.o. female who [...] dipstick manually resulted , unspecified gestational age ([facility]) - Type and screen; Future - ABO/Rh; Future - CBC and differential - Hemoglobin A1c - RPR - Rubella antibody, IgG - Hepatitis B surface antigen - Hepatitis C antibody - HIV-1 and HIV-2 antibodies - Rapid drug screen, urine; Future Encounter for supervision of normal first in first trimester ([facility]) - Rapid drug screen, urine; Future 8 weeks gestation of ([facility]) H/O hypotension Nurse Note: Pt desires [place] billion to one. Pt was advised to [...] or undercooked meat, and stay away from [facility]. Patient has also been advised to not [...] Raysa Sheikh MA documented in this encounter [facility] 01-02-2025 History of Present illness Narrative Reason for Appointment: Patient ID: Carina Baker is a 29 y.o. female who [...] nursing note reviewed. Exam conducted with a warp trucker present. Vitals: Estimated body mass index is 25.4 kg/m as calculated from the following: Height as of this encounter: 5' 4 . Weight as of this encounter: 148 lb. BP: 110/70 No LMP recorded (lmp unknown). ASSESSMENT & PLAN ICD-10-CM 1. Miscarriage ([facility]) O03.9 POCT urinalysis dipstick manually [...] Juan Voss DO documented in this encounter [facility] 08-22-2024 History of Present illness Narrative Reason for Appointment: Patient ID: Carina Baker is a 29 y.o. female who [...] nursing note reviewed. Exam conducted with a warp trucker present. Vitals: Estimated body mass index is [...] Juan Voss DO documented in this encounter [facility] Evaluation note No assessment inform ation available [facility] [employer] Work Phone: Evaluation note Diagnosis Encounter for fertility planning PCOS (polycystic ovarian syndrome) Polycystic ovaries Hormone imbalance documented [facility] this encounter [facility] Diagnosis Miscarriage ([facility]) Unspecified spontaneous without mention of complication [facility] Diagnosis Amenorrhea Absence of menstruation Missed menses , unspecified gestational age ([facility]) Encounter for supervision of normal first in first trimester ([facility]) 8 weeks gestation of ([facility]) H/O hypotension [facility] Diagnosis 12 weeks gestation of ([facility]) First trimester ([facility]) state, incidental Threatened miscarriage in early ([facility]) [facility]* Diagnosis Spontaneous miscarriage ([facility]) documented in this encounter [facility] for referral (narrative)No reason for referral information availableUniversity [facility] [employer] Work Phone: Summary Purpose Family History No Family History Records Found Relationship Condition Age at Onset Recorded Date/T ila father Hypertension Unknown Family history of mental disorder Unknown Diabetes mellitus Unknown Not Specified Hypertension Unknown Malignant neoplasm Unknown Relationship Condition Age at Onset Recorded Date/T ila father Hypertension Unknown Family history of mental disorder Unknown Diabetes mellitus Unknown mother Hypertension Unknown Malignant neoplasm Unknown Advance Directives No Advanced Directives Records Found Advance Directive Response Recorded Date/ Time Advance Directives No June 24, 2020 11:43am Chief Complaint and Reason for Visit Chief Complaint Z00.00 Z13.6 Chief Complaint fever, sore throat , chills Chief Complaint Admit Date Unknown March 01, 2025 1: 15pm Additional Source Comments INFORMATION SOURCE (unrecogn ized section and content) DATE CREATED AUTHOR [facility]2018 [facility] DATE CREATED AUTHOR AUTHOR'S ORGANIZ ATION 03/06/2020 [facility] DATE CREATED AUTHOR AUTHOR'S ORGANIZ ATION 03/08/2025 [facility] DATE CREATED AUTHOR AUTHOR'S ORGANIZ ATION 03/23/2025 [facility] EPIC Care Teams (unrecognized sec tion and content) Team Status: Inactive Member Role Status Dates Katya Cerna DO Primary Care Provider, Attending Provider Active Team Status: Active Member Role Status Dates Katya Cerna DO Primary Care Provider Active Team Status: Active Member Role Status Dates Gregorio Garcia MD Primary Care Provider Active Team Status: Inactive Member Role Status Dates Katya Swartz APRN Emergency Provider Active Start: October 17, 2023 End: October 17, 2023 Gregorio Garcia MD Primary Care Provider Active Start: October 17, 2023 End: October 17, 2023 Generator Technician Relationship Specialty Start Date End Date Gregorio Garcia MD [facility] [place] [address] PCP - General Family Medicine 10/18/23 Generator Technician Relationship Specialty Start Date End Date Gregorio Garcia MD [address] [place] [address] PCP - General Family Medicine 10/18/23 Generator Technician Relationship Specialty Start Date End Date Gregorio Garcia MD [address] [place] [address] PCP - General Family Medicine 10/18/23 Generator Technician Relationship Specialty Start Date End Date Gregorio Garcia MD PCP - General Family Medicine 10/18/23 Generator Technician Relationship Specialty Start Date End Date Gregorio Garcia MD [address] [facility] [place] [address] PCP - General Family Medicine 10/18/23 Generator Technician Relationship Specialty Start Date End Date Gregorio Garcia MD [address] [facility] [place] [address] PCP - General Family Medicine 10/18/23 Generator Technician Relationship Specialty Start Date End Date Gregorio Garcia MD [address] [facility] [place] [address] PCP - General Family Medicine 10/18/23 Generator Technician Relationship Specialty Start Date End Date Gregorio Garcia MD [address] [facility] [place] [address] PCP - General Family Medicine 10/18/23 Generator Technician Relationship Specialty Start Date End Date Gregorio Garcia MD [address] [facility] [place] [address] PCP - General Family Medicine 10/18/23 Team Status: Inactive Member Role Status Dates Gregorio Garcia MD Primary Care Provider Active Start: March 01, 2025 End: March 01, 2025 Juan Voss DO Attending Provider Active Start : March 01, 2025 End: March 01, 2025 Generator Technician Relationship Specialty Start Date End Date Katya Cerna DO [address] [place] [address] PCP - General Family Medicine 03/15/25 Goals (unrecognized section and content) Goals may be documented in a n alternate sectionGoals may be documented in an alternate sectionGoals may be documented in an [...] BE BASED ON THE PRIMARY CLINICAL RECORDS. [employer] provides no warranty or guarantee of the accuracy or completeness of information in this document.
--- OUTSIDE RECORDS SUMMARY | 2025-04-05 06:36 | XMS_ITS | Encounter Summary ---
Author Organization [facility] Address [address] [place] [address] Care Team Providers Care Waistband Setter Lockstitch Name Role Phone Juan Cerna DO Primary Care Provider + [phone] Gregorio Garcia MD Primary Care Provider + Juan Cerna DO Primary Care Provider + [phone] Encounter Details Date Type Department Care Team (Late st Contact Info) Description 01/13/2023 Abstract [facility] [address] [place] [address] Juan Voss DO [address] [facility] [address] [place] [address] Social History Tobacco Use Types Packs/Day Years [...] [facility] [address] [place] [phone] Juan Cerna DO [address] [place] [address] documented as of this encounter Visit Diagnoses Not on filedocumented in this encounter Care Teams Waistband Setter Lockstitch Relationship Specialty Start Date End Date Juan Cerna DO [address] [facility] [address] [place] [address] PCP - General Family Medicine 02/02/23 10/17/23 Gregorio Garcia MD [address] [place] [address] PCP - General Family Medicine 10/18/23 03/14/25 Juan Cerna DO [address] [facility] [address] [place] [address] PCP - General Family Medicine 03/15/25 documented as of this encounter
--- OUTSIDE RECORDS SUMMARY | 2025-04-05 06:36 | XMS_ITS | Encounter Summary ---
Author Organization [facility] Address [address] [place] [address] Care Team Providers Care Senior Cyber Security Analyst Name Role Phone Gregorio Garcia MD Primary Care Provider +[phone] Juan Cerna DO Primary Care Provider + [phone] Encounter Details Date Type Department Care Team (Late st Contact Info) Description 02/22/2025 Abstract [facility] [address] [place] [id number] Juan Francisco Mcarthur, MA Social History Tobacco Use Types Packs/Day [...] one occasion? 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 documented as of this encounter Plan of Treatment Upcoming Encounters Date Type Department Care Team (Late st Contact Info) Description 04/18/2025 5:20 PM EDT Office Visit [facility] [address] [place] [address] Juan Cerna DO [address] [place] [address] documented as of this encounter Visit Diagnoses Not on filedocumented in this encounter Care Teams Senior Cyber Security Analyst Relationship Specialty Start Date End Date Gregorio Garcia MD [address] [place] [address] PCP - General Family Medicine 10/18/23 03/14/25 Juan Cerna DO [address] [place] [address] PCP - General Family Medicine 03/15/25 documented as of this encounter
--- OUTSIDE RECORDS SUMMARY | 2025-04-05 06:36 | XMS_ITS | Encounter Summary ---
Author Organization [facility] Address [address] [place] [address] Care Team Providers Care Burglar Alarm Mechanic Name Role Phone Juan Cerna DO Primary Care Provider [phone] Gregorio Garcia MD Primary Care Provider + Juan Cerna DO Primary Care Provider [phone] Encounter Details Date Type Department Care Team (Late st Contact Info) Description 03/16/2023 Abstract [facility] 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[place], [place]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 [...] 5:20 PM EDT Office Visit [facility] [place] [facility] [address] [place] [address] Juan Cerna DO [address] [place] [address] documented as of this encounter Visit Diagnoses Not on filedocumented in this encounter Care Teams Burglar Alarm Mechanic Relationship Specialty Start Date End Date Juan Cerna DO [address] [place] [address] PCP - General Family Medicine 02/02/23 10/17/23 Gregorio Garcia MD [address] [facility] [place] [address] PCP - General Family Medicine 10/18/23 03/14/25 Juan Cerna DO [address] [place] [address] PCP - General Family Medicine 03/15/25 documented as of this encounter
--- OUTSIDE RECORDS SUMMARY | 2025-04-05 06:36 | XMS_ITS | Encounter Summary ---
Author Organization [facility] Address [address] [place] [address] Care Team Providers Care Plug Sorter Name Role Phone Juan Cerna DO Primary Care Provider + [phone] Gregorio Garcia MD Primary Care Provider + Juan Cerna DO Primary Care Provider + [phone] Encounter Details Date Type Department Care Team (Late Contact Info) Description 05/12/[address] 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 [address] [facility] 230 [place] [address] Juan Cerna DO [address] [place] [address] documented as of this encounter Visit Diagnoses Not on filedocumented in this encounter Care Teams Plug Sorter Relationship Specialty Start Date End Date Juan Cerna DO [address] [facility] [address] [place] [address] PCP - General Family Medicine 02/02/23 10/17/23 Gregorio Garcia MD [address] [place] [address] PCP - General Family Medicine 10/18/23 03/14/25 Juan Cerna DO [address] [facility] [address] [place] [address] PCP - General Family Medicine 03/15/25 documented as of this encounter
--- OUTSIDE RECORDS SUMMARY | 2025-04-05 06:36 | XMS_ITS | Encounter Summary ---
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[place], [place]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 documented as of this encounter Plan of Treatment Upcoming Encounters Date Type Department Care Team (Late st Contact Info) Description 04/18/2025 5:20 PM EDT Office Visit [facility] [place] [facility] [address] [place] [address] Juan Cerna DO [address] [place] [address] documented as of this encounter Visit Diagnoses Not on filedocumented in this encounter Care Teams Processing Technologist Relationship Specialty Start Date End Date Gregorio Garcia MD [address] [place] [address] PCP - General Family Medicine 10/18/23 03/14/25 Juan Cerna DO [address] [place] [address] PCP - General Family Medicine 03/15/25 documented as of this encounter
--- OUTSIDE RECORDS SUMMARY | 2025-04-05 06:36 | XMS_ITS | Encounter Summary ---
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 documented as of this encounter Plan of Treatment Upcoming Encounters Date Type Department Care Team (Late st Contact Info) Description 04/18/2025 5:20 PM EDT Office Visit [facility] [place] [facility] [address] [place] [address] Juan Cerna DO [address] [place] [address] documented as of this encounter Procedures Procedure Name Priority Date/Time Associated Diagnosis Comments US OB BPP W NON-STRESS 05/03/2023 4:35 PM EDT documented in this encounter Results * US OB BPP W NON-STRESS (05/03/2023 4:35 PM EDT) Anatomical Region Laterality Modality Other 05/03/2023 4:35 PM EDT Narrative 05/03/2023 4:35 [place] [address] Ultrasound Report Signed Patient: CARINA BAKER MR#: [id number] : 1995 Acct:[id number] Age/Sex: 28 / F ADM Date: 05/03/23 Loc: [facility] Attending Dr: Dejan Voss D.O. Ordering Physician: Dejan Voss D.O. Date of Service: 05/03/23 Procedure(s): US OB BPP w non-stress Accession Number(s): [id number] cc: CLARENCE LIVINGSTON ; Dejan Voss D.O. [facility] [place] [id number] Patient Name: CARINA BAKER MRN: [id number] date: 1995 Sex: F Assigned Patient Location: [facility] Current Patient Location: Accession/Order Number: [id number] Exam Date: 05/03/2023 11:30 Report Date: 05/03/2023 [...] M.D. Signed By: 05/03/231637 DD/ 34 TD/TT: Geochemical Laboratory Technician: Procedure Note Radiology, Radiologist, - 05/03/2023 [place] [address] Ultrasound Report Signed Patient: CARINA BAKER DMR#: [id number] : 1995Acct:[id number] Age/Sex: 28 / FADM Date: 05/03/23 Loc: [facility]BCO Attending Dr: Dejan Voss D.O. Ordering Physician: Dejan Voss D.O. Date of Service: 05/03/23 Procedure(s): US OB BPP w non-stress Accession Number(s): [id number] cc: CLARENCE LIVINGSTON ; Dejan Voss D.O. [facility] [place] [address] Patient Name: CARINA BAKER MRN: [id number] date: 1995 Sex: F Assigned Patient Location: [facility] Current Patient Location: Accession/Order Number: [id number] Exam Date: 05/03/2023 11:30 Report Date: 05/03/2023 [...] By: Srinivasan Wahl M.D. Signed By:05/03/231637 DD/ 1635 TD/TT: Geochemical Laboratory Technician: us Generic External Data Provider [facility] Final Result documented in this encounter Visit Diagnoses Not on filedocumented in this encounter Care Teams Glost Tile Shader Relationship Specialty Start Date End Date Juan Cerna DO [address] [facility] [address] [place] [address] PCP - General Family Medicine 02/02/23 10/17/23 Gregorio Garcia MD [address] [place] [address] PCP - General Family Medicine 10/18/23 03/14/25 Juan Cerna DO [address] [facility] [address] [place] [address] PCP - General Family Medicine 03/15/25 documented as of this encounter
== END 2025-04-05 06:31 | disposition home or self-care (01) ==
LOC: NM 06:33
PROVIDERS: PCP Family Medicine; Visit Provider Family Medicine
DX: Z83.49 Family history of other endocrine, nutritional and metabolic diseases (principal)
CPT/HCPCS: 78014; A9516

== ENCOUNTER 2025-06-22 13:05 | Outpatient (OUT) | payer BC, SELFPAY ==
--- OUTSIDE RECORDS SUMMARY | 2025-06-22 13:12 | XMS_ITS | CCD ---
Author Organization [facility] Inform ion Partnership [facility] Care Team Providers Care Client Resource Specialist Name Role Phone NONE, XXXX Unavailable Unavailable Hajdari, Astrit H Unavailable Unavailable Hajdari, Astrit H Unavailable Unavailable NONE, XXXX Unavailable Unavailable Samira, Mirza Unavailable Unavailable Samira, Mirza Unavailable Unavailable Mirza Cheng Unavailable Unavailable NONE, XXXX Unavailable Unavailable Juan, Shanna Unavailable Unavailable NONE, XXXX Unavailable Unavailable Mirza Cheng Unavailable Unavailable NONE, XXXX Unavailable Unavailable ROCCO WEBBER Admitting Unavailable ROCCO WEBBER Attending Unavailable CLARENCE LIVINGSTON Referring Unavailable ROCCO WEBBER Consulting Unavailable DO Katya Cerna Primary Care Provider DO Katya Cerna Attending Provider HAWA Swartz Emergency Provider MD Gregorio Garcia Primary Care Provider Gregorio Garcia MD Primary Care Provider Gregorio Garcia MD Primary Care Provider Gregorio Garcia MD Primary Care Provider Gregorio Garcia MD Primary Care Provider Juan Voss DO Attending Provider Gregorio Garcia Primary Care Unavailable Juan Voss Attending Unavailable Juan Voss Admitting Unavailable Katya Cerna DO Primary Care Provider KATYA CERNA Attending Unavailable JUAN VOSS Attending Unavailable JUAN VOSS Attending Unavailable JUAN VOSS Attending Unavailable JUAN VOSS Attending Unavailable Allergies Allergy ClassificationReported Allergen(s)Allergy TypeDate of OnsetReaction(s) Facility (1 source)Bee/Wasp/Ant venom; Translations: [Bee Stings]Propensity to adverse reactions (disorder)[facility] (20 sources)Honey bee venomPropensity to adverse ltwtkzhae70-31-7859Qgizzytrvsm [facility] (19 sources)Honey bee venomDrug Wgczlyy08-73-3341FtdipthrgbtUIRS Healthcare (1 source)bee venom protein (honey bee)Drug allergy (disorder)10-17-2023 [facility] Repository Medications Current Medications MedicationDrug Class(es)DatesSig (Normalized)Sig (Original)ALPRAZolam 0.25 mg oral tablet (7 sources)BenzodiazepineStart: 69-94-3786wevw 1-2 tablets by mouth at bedtime as needed, then take 2 tablets by mouth at bedtime as neededALPRAZolam (Xanax) 0.25 MG tablet TAKE 1-2 TABLETS BY MOUTH AT BEDTIME FOR 7 DAYS NEEDED, RECOMMEND TRYING 2 TABLETS AT BEDTIME 02/27/2025 Activeescitalopram 5 mg oral tablet (7 sources)Serotonin Reuptake InhibitorStart: 03-15-2025 End: 36-30-5912zflk 1 tablet by mouth once dailyescitalopram (Lexapro) 5 MG tablet Indications: Moderate episode of recurrent major depressive disorder (HCC) , Generalized anxiety disorder TAKE 1 TABLET BY MOUTH EVERY DAY 90 tablet 1 04/09/2025 ActiveNo Name (No Known Home Meds) (2 sources)Start: 28-56-1281Vd Name (No Known Home Meds) Active October 17, 2023 12:00amondansetron 4 mg disintegrating oral tablet (20 sources)Serotonin-3 Receptor AntagonistStart: 10-17-2022 End: 78-61-4550zhzc 1 tablet by mouth every six hoursondansetron ODT (Zofran- ODT) 4 MG disintegrating tablet Indications: Nausea and vomiting in (HHS-HCC) TAKE 1 TABLET BY MOUTH EVERY 6 HOURS 120 tablet 02/05/2025 Active penicillin v potassium 500 mg oral tablet (2 sources)Start: 72-77-4656btaz 1 tablet by mouth twice daily Completed/Discontinued Medications MedicationDrug Class(es)DatesSig (Normalized)Sig (Original)Progesterone 200 MG suppository (7 sources)Start: 01-30-2025 End: 66-76-7937Geymphnhzyxe 200 MG suppository Indications: History of miscarriage Insert 200 mg into the vagina at bedtime Insert suppository vaginally every night at bedtime until 12 weeks gestation 30 suppository 01/30/2025 02/27/2025 DiscontinuedStart: 01-30-2025 End: 10-11-0736Zgcfwdmlgvjb 200 MG suppository Indications: History of miscarriage Insert 200 mg into the vagina at bedtime Insert suppository vaginally every night at bedtime until 12 weeks gestation 30 suppository 01/30/2025 03/01/2025 ActiveStart: 01-04-2025 End: 54-96-9092Tklmstpcvxwx 200 MG suppository Indications: History of miscarriage Insert 200 mg into the vagina at bedtime Insert suppository vaginally every night at bedtime until 12 weeks gestation 30 suppository 01/04/2025 02/03/2025 Active Problems Active Problems Problem ClassificationProblemDateDocumented DateEpisodic/ChronicAnxiety disorders (9 sources)Anxiety disorder; Translations: [Anxiety disorder, unspecified]Onset: 441072-56-7418XcpsnfaApdkztgieggyc and procreative management (2 sources)Patient encounter status; Translations: [Encounter for other procreative management]36-75-8869VxvsccqsOcwnmiqxdx during ; abruptio placenta; placenta previa (2 sources)Threatened miscarriage in first trimester; Translations: [Threatened ]53-45-6828TwxjszraMnxaikzbivwto and screening for infectious disease (4 sources)Contact with and (suspected) exposure to other viral communicable diseases; Translations: [CONTCT EXPS OTH VIRL COMMUNICABL DZ]Onset: 02-26-2020 EpisodicMood disorders (16 sources)Moderate recurrent major depression; Translations: [Major depressive disorder, recurrent, moderate]Onset: 966155-89-8585MlhlwhiWfyrr circulatory disease (1 source)History of hypotension; Translations: [Personal history of other diseases of the circulatory system]93-89-5608EkrwyiwlEgpiy endocrine disorders (2 sources)Polycystic ovary syndrome; Translations: [Polycystic ovarian syndrome]20-71-4982AxxwipmLaxhk endocrine disorders (2 sources)Disorder of endocrine system; Translations: [Endocrine disorder, unspecified]30-09-6076RjkswoqeSkabq and delivery including normal (4 sources); Translations: [Encounter for supervision of normal , unspecified, unspecified trimester]80-19-4195UmfzkbxpWehjb upper respiratory infections (2 sources)Streptococcal sore throat; Translations: [Streptococcal pharyngitis] 71-11-9195LlkbaisbCtyggwjt codes; unclassified (1 source)Gestation period, 8 weeks; Translations: [8 weeks gestation of ]28-18-2837LacjdejaFshqfnjr codes; unclassified (2 sources)Gestation period, 12 weeks; Translations: [12 weeks gestation of ]06-90-1965EfoxolqaNdotjxlspja (4 sources)Miscarriage; Translations: [Complete or unspecified spontaneous without complication]06-79-9771Zwhowvfk Past or Other Problems Problem ClassificationProblemDateDocumented DateEpisodic/ChronicInflammatory diseases of female pelvic organs (7 sources)Subacute vaginitis; Translations: [Subacute and chronic vaginitis] Onset: 03-15-2025 Resolved: 621657-87-6513AxyrjyyrTcujzbihh disorders (9 sources)Amenorrhea; Translations: [Amenorrhea, unspecified]Onset: 03-15-2025 Resolved: 039063-35-0017PlwezvcQowr disorders (7 sources)Mood disordersOnset: Other connective tissue disease (7 sources)Ganglion cyst; Translations: [Ganglion, unspecified site]Onset: 03-15-2025 Resolved: 406197-65-5864WsigayqjUxlhrpic transmitted infections (not HIV or hepatitis) (7 sources)Human papilloma virus deoxyribonucleic acid test positive, high risk on vaginal specimen; Translations: [Vaginal high risk human papillomavirus (HPV) DNA test positive]Onset: 03-15-2025 Resolved: 140297-43-1544Xgcomumz Results Test NameValueInterpretationReference RangeFacilityLaboratory - Chemistry and Chemistry - challengeon 57-59-7961Sleq T4 [Mass/Vol]0.99 ng/dL0.82 - 1.77 ng/dL [facility] HospitalTSH Qn1.45 m[IU]/LNOMS HealthcareLaboratory - Serology - non-microon 10-46-1275Pnghdxnpxojyj Ab Qn[IU]/mLNOMS HealthcareComment on above: Thyroglobulin Antibody measured by Lonnie Ada Methodology It should be noted that the presence of thyroglobulin antibodies may not be pathogenic nor diagnostic, especially at very low levels. The assay construction administrative assistant has found that four percent of individuals without evidence of thyroid disease or autoimmunity will have positive TgAb levels up to 4 IU/mL. TPO Ab Qn21 [IU]/mLNINTEGRIS MIAMI HOSPITAL – MIAMI HealthcareNo Panel Informationon 67-56-5226Ubocebaft at: [address] [place] [phone] Marketing Director: Kip Giles PhD, Phone: [phone] HealthcareALL CBC WITH AUTO DIFFon 50-02-2283KOHAHLKNA ABSOLUTE ILGM3NLDP Healthcare Basophils/100 WBC (Bld)0.5 %0.2 - 2.0 %NOMS HealthcareEosinophils/100 WBC (Bld) 0.5 %Low0.9 - 7.0 %NOM HealthcareErythrocyte distribution width (RBC) [Ratio] 12.9 %11.0 - 15.0 %NOMS HealthcareHematocrit (Bld) [Volume fraction]37.8 %36.0 - 48.0 %NOM HealthcareHemoglobin (Bld) [Mass/Vol]13.5 g/dL12.0 - 16.0 g/dLNOI-70 Community HospitalIMMATURE GRANULOCYTES ABS AUTO0.01NOMI HealthcareImmature granulocytes/100 WBC (Bld)0.2 %0.0 - 0.5 %NOM HealthcareInterpretation and review of laboratory resultsAbnormalNOI-70 Community HospitalLYMPHOCYTES ABSOLUTE AUTO2 NOMS HealthcareLymphocytes/100 WBC (Bld)32.9 %20.5 - 60.0 %[facility] CenterH (RBC) [Entitic mass]31.5 pg26.7 - 34.0 pgNOKansas City VA Medical CenterHC (RBC) [Mass/Vol] 35.7 g/gOIzhb59.9 - 35.2 g/dLNOMI HealthcareMCV (RBC) [Entitic vol]88.3 fL81.0 - 99.0 fLNOMI HealthcareMONOCYTES ABSOLUTE AUTO0.4NOMS HealthcareMonocytes/100 WBC (Bld)5.6 %1.7 - 12.0 %NOMS HealthcareNEUTROPHILS ABSOLUTE AUTO3.7[facility] Neutrophils/100 WBC (Bld)60.3 %43.0 - 75.0 %NOMS HealthcarePlatelet mean volume (Bld) [Entitic vol]11.2 fL9.5 - 13.5 fLNOMS HealthcareTBH EO #0[facility] TBH YKS262ALBG HealthcareTB RBC4.28NOMS HealthcareTB WBC6.2NOMS [facility] CLINISYNCEastern Missouri State HospitalLon 03-01-2025 Specimen: [id number] Received: 03/02/25 Status: DELIA Lucio Num: [id number] Spec Type: Surgical Subm Dr: Juan Voss Tissues: A Gross Only (FETUS) B Products of Conception - Spontaneous or Missed (PRODUCTS OF CONCEPT Procedures: HE/2, Gross/Micro L4, Level 1 Gross Age/ Patient Sex Location Account Attending Physician Carina Baker LABELL [id number] Juan Voss SPEC NUM: [id number] RECD: 03/02/25 STATUS: DELIA LUCIO NUM: [id number] CAROLYN: 03/01/25- SUBM DR: Juan Voss ENTERED: 03/02/[address] [facility] [address]: Flaquita,Lab SPEC TYPE: Surgical DEPT: JOHN [...] age of 12 weeks and 6 days, [place]/parity: 3/1, miscarriage 12/05/2024 at 7 weeks gestation Gross [...] 6 x 3.5 x 1.5 cm. The Specimen: [id number] Received: 03/02/25 Status: DELIA Lucio Num: [id number] Spec Type: Surgical Subm Dr: Juan Voss Tissues: A Gross Only (FETUS) B Products of Conception - Spontaneous or Missed (PRODUCTS OF CONCEPT Procedures: HE/2, Gross/Micro L4, Level 1 Gross Patient: Carina Baker [id number] (Continued) Specimen: [id number] Received: 03/02/25 (Continued) Gross Description (Continued) Signed (signature on file) Glenroy Martinez MD 03/06/25 1421 Specimen: [id number] Received: 03/02/25 Status: DELIA Lucio Num: [id number] Spec Type: Surgical Subm Dr: Juan Voss Tissues: A Gross Only (FETUS) B Products of Conception - Spontaneous or Missed (PRODUCTS OF CONCEPT Procedures: HE/2, Gross/Micro L4, Level 1 Gross Patient: Carina Baker [id number] (Continued) Specimen: [id number] Received: 03/02/25 (Continued) Gross Description (Continued) gestational sac is 2.7 x 1.7 cm and disrupted. Bookseamer Blindstitch sections of the chorionic villi are submitted in B1 with business banking representative sections of the decidua submitted in B2. (2, , [id number] B) Microscopic Description A. Gross examination. B. Microscopic examination is performed. CPT Codes 65977, 21540 Specimen: [id number] Received: 03/02/25 Status: DELIA Lucio Num: [id number] Spec Type: Surgical Subm Dr: Juan Voss Tissues: A Gross Only (FETUS) B Products of Conception - Spontaneous or Missed (PRODUCTS OF CONCEPT Procedures: HE/2, Gross/Micro L4, Level 1 Gross Patient: Carina Baker [id number] (Continued) Signed (signature on file) Glenroy Martinez MD 03/06/25 1421Normal [facility] for pregnancyon [id number] [address] Ultrasound Report Signed Patient: HERON BAKERAshley Lopez MR#: [id number] : 1995 Acct:[id number] Age/Sex: 29 / F ADM Date: Loc: [facility] 258-[address]: Juan Voss D.O. Ordering Physician: Juan Voss D.O. Date of Service: 03/01/25 Procedure(s): US OB limited Accession Number(s): [id number] cc: Juan Voss D.O.; Gregorio Garcia M.D. The [place] [id number] Patient Name: CARINA BAKER MRN: [facility]:[id number] date: 1995 Sex: F Assigned Patient Location: [facility] Current Patient Location: [facility] Accession/Order Number: [id number] Exam Date: 03/01/2025 08:52 Report Date: 03/01/2025 [...] relayed to the patient's nurse by the lead radiologic technologist. Impression dictated by: Brent Jonas Jr., D.O. 03/01/2025 8:57 AM Dictation Location: [place] [address] Electronically authenticated by: [id number] Y Date: 03/01/2025 08:57 Dictated By: Brent Jonas M.D. Signed By: 03/01/25 09 DD/ TD/TT: Wildlife Management Professor:CRISHRadiology, Radiologist, - 03/01/2025 [place] [address] Ultrasound Report Signed Patient: CARINA BAKER MR#: [id number] : 1995 Acct:[id number] Age/Sex: 29 / F ADM Date: Loc: [facility] 258-[address]: Juan Voss D.O. Ordering Physician: Juan Voss D.O. Date of Service: 03/01/25 Procedure(s): US OB limited Accession Number(s): [id number] cc: Juan Voss D.O.; Gregorio Garcia M.D. [place] [address] Patient Name: CARINA BAKER MRN: [facility]:[id number] date: 1995 Sex: F Assigned Patient Location: [facility] Current Patient Location: [facility] Accession/Order Number: [id number] Exam Date: 03/01/2025 08:52 Report Date: 03/01/2025 [...] relayed to the patient's nurse by the lead radiologic technologist. Impression dictated by: Brent Jonas Jr., D.O. 03/01/2025 8:57 AM Dictation Location: [place] [address] Electronically authenticated by: [id number] Y Date: 03/01/2025 08:57 Dictated By: Brent Jonas M.D. Signed By: 03/01/25 09 DD/ TD/TT: Wildlife Management Professor: DAGO HealthcareRadiology Study observation (narrative)DAGO HealthcareUS for pregnancyOrdered By: Radiologist Radiology on 98-96-7147TG[facility] Work Phone: US OB TRANSVAGINALon 61-16-0063PF OB TRANSVAGINAL FINDINGS: Single intrauterine gestational sac with a pole measuring 6.6 cm which would be consistent with a 13-week and 0-day gestational age however there is no cardiac or activity identified. Cervix is closed, 5.0 cm length. No pelvic fluid. IMPRESSION: No cardiac activity identified, crown rump length suggesting a 13 week and 0 day gestational age. TRANSCRIBED BY: ELECTRONICALLY SIGNED BY: Hermes AlmendarezNot AvailableComment on above:Order Comment: US OB VIABILITY PLEASE PERFORM TRANSVAGINAL ULTRASOUND IF INDICATED No LMP recorded (lmp unknown). Patient is .US Pelvis transvaginalon 43-30-4374Po cardiac activity identified, crown rump length suggesting a 13 week and 0 day gestational age. TRANSCRIBED BY: ELECTRONICALLY SIGNED BY: Brent Moore MDIMAGINGFINDINGS: Single intrauterine gestational sac with a pole measuring 6.6 cm which would be consistent with a 13-week and 0-day gestational age however there is no cardiac or activity identified. Cervix is closed, 5.0 cm length. No pelvic fluid. IMAGINGSpirBrent church MD - 02/27/2025 FINDINGS: Single intrauterine gestational [...] BY: ELECTRONICALLY SIGNED BY: Brent Moore MD NOMS HealthcareRadiology Study observation (narrative)NOMS HealthcareUS Pelvis transvaginalOrdered By: Brent Moore on 20-41-2920XRQW Healthcare Work Phone: Urinalysis macro (dipstick) panel (U)on 02-27-2025 Bilirubin, UANegativeNegative - 4(70) +++ mg/dLNOMS HealthcareBlood, UAPositive Negative - 50 Ronal/mcLNOMS HealthcareClarity, UAClearNOMS HealthcareColor, UA YellowNOMS HealthcareGlucose, UANegativeNegative - 2000(110) ++++ mg/dLNOMI HealthcareInterpretation and review of laboratory resultsAbnormalNOI-70 [facility] Ketones, UANegativeNegative - 160(16) ++++ mg/dLEastern Missouri State HospitalLeukocytes, UA PositiveNegative - 500+++ Gilbert/mcLNOMI HealthcareComment on above:3+Nitrite, UA NegativeNegative - PositiveNOMS HealthcarepH, UA65 - 9NOMI HealthcareProtein, UA NegativeNegative - 2000(20) ++++ mg/dLPRIMARY CHILDREN'S [facility]ITAL HealthcareSpec Grav, UA1.0251 - 1.03 NOMS HealthcareUrobilinogen, UA1.00.2 - 12 mg/dLNOSaint Joseph Hospital of Kirkwood Healthcare BOX TESTon 57-80-4392YXE TEST SENT OUTYESEastern Missouri State HospitalBfzebbrsgfSIR6BPAVMEPFJ Healthcare BOXEastern [facility] State HospitalCLINISYNCNSt. Luke's HospitalHCG ( test) Ql (U)on 16-46-6707Wqiojhvqhsnaed and review of laboratory resultsAbnoGeisinger-Bloomsburg Hospital Preg Test, UrPositiveNegativeRipley County Memorial Hospital HealthcareUS OB TRANSVAGINALon 01-48-2822OD OB TRANSVAGINALFINDINGS: A single intrauterine gestational sac is present. [...] cardiac activity. TRANSCRIBED BY: ELECTRONICALLY SIGNED BY: Bessie Almendarez AvailableComment on above:Order Comment: US OB TRANSVAGINAL No LMP recorded (lmp unknown).Urinalysis macro (dipstick) panel (U)on 01-26-2025 Bilirubin, UANegativeNegative - 4(70) +++ mg/dLNOMI HealthcareBlood, UANegative Negative - 50 Ronal/mcLNOMI HealthcareClarity, UAClearNOMS HealthcareColor, UA YellowNOMS HealthcareGlucose, UANegativeNegative - 1999(110) ++++ mg/dLNOMI HealthcareInterpretation and review of laboratory resultsNormalNOI-70 [facility] Ketones, UANegativeNegative - 160(16) ++++ mg/dLNOMS HealthcareLeukocytes, UA TraceNegative - 500+++ Gilbert/mcLNOMI HealthcareNitrite, UANegativeNegative - PositiveNOMS HealthcarepH, UA75 - 9NOMS HealthcareProtein, UANegativeNegative - 2000(20) ++++ mg/dLNOMS HealthcareSpec Grav, UA1.021 - 1.03[facility] Urobilinogen, UA0.20.2 - 12 mg/dLNOMI HealthcareNOMS HealthcareUS OB TRANSVAGINALon 14-41-8223QV OB TRANSVAGINALEXAM: US OB TRANSVAGINAL HISTORY: Missed menstrual cycle, unknown LMP. COMPARISON: [...] II, MD, PHD at 11-Jan-2025 09:47:30 AM [facility] TeleradiologyNormalNot AvailableTB PREG QUANT HCGon 05-51-1821ANS UWFCMIBOCOYR96668bHJ/mLNOMS HealthcareComment on above:5-50 0.2-1 WEEK 50-500 1-2 WEEKS 100-5,000 2-3 WEEKS 500-10,000 3-4 WEEKS 1,000-50,000 4-5 WEEKS 10,000-100,000 5-6 WEEKS 15,000-200,000 6-8 WEEKS 10,000-100,000 2-3 MONTHS CLINISYNCSt. Louis Behavioral [facility] PREG QUANT HCGon 33-06-3987LHJ [id number] mIU/mLNOMS HealthcareComment on above:5-50 0.2-1 WEEK 50-500 1-2 WEEKS 100-5,000 2-3 WEEKS 500-10,000 3-4 WEEKS 1,000-50,000 4-5 WEEKS 10,000-100,000 5-6 WEEKS 15,000-200,000 6-8 WEEKS 10,000-100,000 2-3 MONTHS CLINISYNCNOMI HealthcareUrinalysis macro (dipstick) panel (U)on 01-02-2025 Bilirubin, UANegativeNegative - 4(70) +++ mg/dLNOMS HealthcareBlood, UANegative Negative - 50 Ronal/mcLNOMI HealthcareClarity, UAClearNOMS HealthcareColor, UA YellowNOMS HealthcareGlucose, UANegativeNegative - 2000(110) ++++ mg/dLNOMS HealthcareInterpretation and review of laboratory resultsNormalNOMI Healthcare Ketones, UANegativeNegative - 160(16) ++++ mg/dLNOMS HealthcareLeukocytes, UA NegativeNegative - 500+++ Gilbert/mcLNOMS HealthcareNitrite, UANegativeNegative - PositiveNOMS HealthcarepH, UA65 - 9NOMS HealthcareProtein, UANegativeNegative - 2000(20) ++++ mg/dLNOMS HealthcareSpec Grav, UA1.0251 - 1.03[facility] Urobilinogen, UA0.20.2 - 12 mg/dLNOMayo Clinic Health System– NorthlandTBH PREG QUANT HCGon 75-52-7310DLK KWPLVJAHKYQA870oLD/mLNOMS HealthcareComment on above:5-50 0.2-1 WEEK 50-500 1-2 WEEKS 100-5,000 2-3 WEEKS 500-10,000 3-4 WEEKS 1,000-50,000 4-5 WEEKS 10,000-100,000 5-6 WEEKS 15,000-200,000 6-8 WEEKS 10,000-100,000 2-3 MONTHS CLINISYSt. Francis HospitalTB PREG QUANT HCGon 65-50-5086OSE MQEHXQEOHRKN093qTM/mL NOMS HealthcareComment on above:5-50 0.2-1 WEEK 50-500 1-2 WEEKS 100-5,000 2-3 WEEKS 500-10,000 3-4 WEEKS 1,000-50,000 4-5 WEEKS 10,000-100,000 5-6 WEEKS 15,000-200,000 6-8 WEEKS 10,000-100,000 2-3 MONTHS CLINChristian HospitalUS OB TRANSVAGINALon 25-23-7484[place] [address] Ultrasound Report Signed Patient: CARINA BAKER MR#: [id number] : 1995 Acct:[id number] Age/Sex: 29 / F ADM Date: 11/22/24 Loc: US Attending Dr: Juan Voss D.O. Ordering Physician: Juan Voss D.O. Date of Service: 11/22/24 Procedure(s): US OB transvaginal Accession Number(s): [id number] cc: Juan Voss D.O.; Gregorio Garcia M.D. The [address] [address] Patient Name: CARINA BAKER MRN: [facility]:[id number] date: 1995 Sex: F Assigned Patient Location: US Current Patient Location: US Accession/Order Number: [id number] Exam Date: 11/22/2024 16:44 Report Date: 11/22/2024 [...] Jr., D.O. 11/22/2024 4:47 PM Dictation Location: [place] [address] Electronically authenticated by: [id number] Y Date: 11/22/2024 16:47 Dictated By: Brent Jonas M.D. Signed By: 11/22/24 1650 DD/ 1647 TD/TT: Wildlife Management Professor:TBHRadiology, Radiologist, MD - 11/22/2024 [place] [address] Ultrasound Report Signed Patient: CARINA BAKER MR#: [id number] : 1995 Acct:[id number] Age/Sex: 29 / F ADM Date: 11/22/24 Loc: US Attending Dr: Juan Voss D.O. Ordering Physician: Juan Voss D.O. Date of Service: 11/22/24 Procedure(s): US OB transvaginal Accession Number(s): [id number] cc: Juan Voss D.O.; Gregorio Garcia M.D. [address] [address] Patient Name: CARINA BAKER MRN: [facility]:[id number] date: 1995 Sex: F Assigned Patient Location: US Current Patient Location: US Accession/Order Number: [id number] Exam Date: 11/22/2024 16:44 Report Date: 11/22/2024 [...] Jr., D.O. 11/22/2024 4:47 PM Dictation Location: [place] [address] Electronically authenticated by: [id number] Y Date: 11/22/2024 16:47 Dictated By: Brent Jonas M.D. Signed By: 11/22/241649 DD/ 46 TD/TT: Wildlife Management Professor: DAGO HealthcareRadiology Study observation (narrative)NOMS HealthcareUS OB TRANSVAGINALOrdered By: Radiologist Radiology on 45-26-7813UCWC [facility] Work Phone: TBH PREG QUANT HCGon 57-91-8822TLW QUANTITATIVE<1 mIU/mLNOMS HealthcareComment on above:5-50 0.2-1 WEEK 50-500 1-2 WEEKS 100-5,000 2-3 WEEKS 500-10,000 3-4 WEEKS 1,000-50,000 4-5 WEEKS 10,000-100,000 5-6 WEEKS 15,000-200,000 6-8 WEEKS 10,000-100,000 2-3 MONTHS CLINISYNCNOMI HealthcareStreptococcus pyogenes antigen detectionOrdered By: Katya Swartz on 10-17-2023S. pyogenes Ag Ql (Unsp spec)[facility] HospitalBasophils Auto (Bld) [#/Vol]Ordered By: Katya Cerna on 73-97-1554Wzarqekzl (Bld) [#/Vol]0.0 10*3/uL0.0-0.2FPremier HealthBasophils/100 WBC Auto (Bld)Ordered By: Katya Cerna on 05-06-2022 Basophils/100 WBC (Bld)0.6 %.[facility] HospitalBody fluid albumin measurement (mass/volume)Ordered By: Katya Cerna on 05-40-5325Dgmglrt (Body fld) [Mass/Vol]4.4 g/dL3.2-5.5FPremier HealthCholesterol [Mass/volume] in Serum or PlasmaOrdered By: Katya Cerna on 05-06-2022 Cholesterol [Mass/Vol]191 mg/hM177-225DivxcgjfqFostoria City HospitalComment on above:Chol less than 200 mg/dl low riskChol 201-239 mg/dl borderline riskChol 240 mg/dl and greater high riskCholesterol in LDL Calc [Mass/Vol]Ordered By: Katya Cerna on 78-65-8144Rrpqepcaofc in LDL [Mass/Vol]103 mg/dL0-100Fostoria City HospitalComment on above:LDL ATP III CLASSIFICATIONLDL less than 100 mg/dL OptimalLDL 100-129 mg/dL Near or above icsthmlVKS364-704 mg/dL Borderline highLDL 160-189 mg/dL HighLDL greater than 189 mg/dL Very high Cholesterol in VLDL Calc [Mass/Vol]Ordered By: Katya Cerna on 05-06-2022 Cholesterol in VLDL [Mass/Vol]7 mg/dLFostoria City HospitalCreatinine and Glomerular filtration rate.predicted panel (S/P/Bld)Ordered By: Katya Cerna on 78-74-8011Jwpyitkmnu [Mass/Vol]0.63 mg/dL0.44-1.03Fostoria City HospitalEosinophils Auto (Bld) [#/Vol]Ordered By: Katya Cerna on 18-79-9871Tprzjgpmquv (Bld) [#/Vol]0.1 10*3/uL0.0-0.45Fostoria City HospitalEosinophils/100 WBC Auto (Bld)Ordered By: Katya Cerna on 05-06-2022 Eosinophils/100 WBC (Bld)0.7 %.[facility] City HospitalErythrocyte distribution width Auto (RBC) [Ratio]Ordered By: Katya Cerna on 05-06-2022 Erythrocyte distribution width (RBC) [Ratio]13.3 %11.9-15.3FPremier HealthEstimated glomerular filtration rate (GFR) non- Ordered By: Katya Cerna on 11-38-6352AKA/1.73 sq M.predicted among non-blacks MDRD (S/P/Bld) [Vol rate/Area]> 60 mL/MinFostoria City Hospital Globulin Calc (S) [Mass/Vol]Ordered By: Katya Cerna on 36-07-5513Tfsirxdr (S) [Mass/Vol]2.6 g/dLFostoria City HospitalHematocrit Auto (Bld) [Volume fraction]Ordered By: Katya Cerna on 67-63-5954Dslqxbntui (Bld) [Volume fraction]42.9 %34.0-46.4FPremier HealthHemoglobin [Mass/volume] in BloodOrdered By: Katya Cerna on 24-93-1055Hukhraurmy (Bld) [Mass/Vol]13.8 g/dL11.8-15.4FPremier HealthLaboratory - Hematology and Cell countsOrdered By: Katya Cerna on 84-89-3699Puvcsrbjd RBC/100 WBC (Bld) [Ratio]0.1 %0-0.5FPremier HealthLeukocytes [#/volume] in Blood by Automated countOrdered By: Katya Cerna on 05-06-2022 WBC (Bld) [#/Vol]7.6 10*3/uL4.5-11.0Fostoria City HospitalLymphocytes Auto (Bld) [#/Vol]Ordered By: Katya Cerna on 40-20-9395Vjkcdnamhlk (Bld) [#/Vol]2.6 10*3/uL1.00-4.8Fostoria City HospitalLymphocytes/100 WBC Auto (Bld)Ordered By: Katya Cerna on 78-93-6130Cbsteecoskq/100 WBC (Bld)34.7 %.[facility] Auto (RBC) [Entitic mass]Ordered By: Katya Cerna on 33-24-5876NKZ (RBC) [Entitic mass]29.7 pg24.7-34.3FCleveland Clinic Children's Hospital for RehabilitationHC Auto (RBC) [Mass/Vol]Ordered By: Katya Cerna on 56-32-9349BKOV (RBC) [Mass/Vol]32.2 g/dL32.0-35.0Fostoria City HospitalMCV Auto (RBC) [Entitic vol]Ordered By: Katya Cerna on 25-63-4265AEU (RBC) [Entitic vol]92.3 gW56-653EcnqboyvmFostoria City HospitalMonocytes Auto (Bld) [#/Vol]Ordered By: Katya Cerna on 74-96-7703Atqnahiam (Bld) [#/Vol]0.5 10*3/uL0.0-0.8Fostoria City HospitalMonocytes/100 WBC Auto (Bld) Ordered By: Katya Cerna on 65-08-2871Eckbssvnv/100 WBC (Bld)6.1 %.Fost[facility] City HospitalNeutrophils Auto (Bld) [#/Vol]Ordered By: Katya Cerna on 58-15-7109Pololggbhcj (Bld) [#/Vol]4.4 10*3/uL1.8-7.7FPremier HealthNeutrophils/100 WBC Auto (Bld)Ordered By: Katya Cerna on 00-54-3933Tuttlznbokp/100 WBC (Bld)57.9 %.[facility]ostoria City HospitalNo Panel InformationOrdered By: Katya Cerna on 41-39-4207Ffphvkhhd GFR ()> 60 mL/MinFostoria City HospitalComment on above:GFR estimated reference range: According to KDOQI guidelines, <60 ml/min/1.73m2 is sufficient todiagnose a patient with chronic kidney disease.Pharmacy Creatinine Clearance (ChemN/AFPremier HealthPlatelet mean volume Auto (Bld) [Entitic vol]Ordered By: Katya Cerna on 74-61-6264Tsblzvmw mean volume (Bld) [Entitic vol]9.9 fL6.3-10.7FPremier HealthPlatelets Auto (Bld) [#/Vol]Ordered By: Katya Cerna on 85-30-3623Ugczuulmu (Bld) [#/Vol]253 10*3/nR307-219HxtbzxeazFostoria City HospitalProtein [Mass/volume] in Serum or PlasmaOrdered By: Katya Cerna on 29-04-7107Grcgszw [Mass/Vol]7.0 g/dL6.1-7.9 [facility] HospitalRBC Auto (Bld) [#/Vol]Ordered By: Katya Cerna on 86-11-3989VCQ (Bld) [#/Vol]4.65 10*6/uL3.60-5.00Regency Hospital Companyerum or plasma alanine aminotransferase measurement without P-5'-P (enzymatic activiOrdered By: Katya Cerna on 77-98-1437HQE No additional P-5'-P [Catalytic activity/Vol]14 U/T74-44NcalfqckyRegency Hospital Companyerum or plasma albumin/globulin mass ratioOrdered By: Katya Cerna on 69-07-0241Cgriuhb/Globulin [Mass ratio]1.7 {ratio}[facility] Companyerum or plasma alkaline phosphatase measurement (enzymatic activity/volume)Ordered By: Katya Cerna on 87-28-5660ULW [Catalytic activity/Vol]42 U/Z36-60EcdoorlafRegency Hospital Companyerum or plasma anion gap determinationOrdered By: Katya Cerna on 11-55-9255Wzijq gap [Moles/Vol] 13.3 mmol/L6.0-15.0[facility] Companyerum or plasma aspartate aminotransferase measurement (enzymatic activity/volume)Ordered By: Katya Cerna on 79-87-9527NAX [Catalytic activity/Vol]17 U/Q21-83IcfhqixsmRegency Hospital Companyerum or plasma calcium measurement (mass/volume)Ordered By: Katya Cerna on 02-55-8685Qguxbnm [Mass/Vol]9.9 mg/dL8.2-10.2FMercy Hospitalerum or plasma chloride measurement (moles/volume) Ordered By: Katya Cerna on 19-83-1029Dfiizkyf [Moles/Vol]100 mmol/L95-114 [facility] Companyerum or plasma glucose measurement (mass/volume)Ordered By: Katya Cerna on 87-46-9501Umlopjr [Mass/Vol]81 mg/dL 70-100Fostoria City HospitalComment on above:ADA recommended reference rangeRandom Glucose Reference Range is dependent on time and content of last meal. Glucose of more than 200 mg/dL in a nonstressed, ambulatory subject supports the diagnosisof Diabetes Mellitus.Serum or plasma high density lipoprotein (HDL) cholesterol measurementOrdered By: Katya Cerna 07-23-2971Dhbooighwmm in HDL [Mass/Vol]80 mg/vK96-08YsbvgopgzFostoria City HospitalComment on above:HDL CHOL ATP-III CLASSIFICATION Cardiovascular RiskHDL > or equal to 60 mg/dL LOWHDL < 40 mg/dL HIGHSerum or plasma potassium measurement (moles/volume)Ordered By: Katya Cerna on 97-83-9018Uyuucvkxi [Moles/Vol]3.6 mmol/L3.5-5.1FMercy Hospitalerum or plasma sodium measurement (moles/volume)Ordered By: Katya Cerna on 15-14-4342Skgpaa [Moles/Vol]136 mmol/G739-256XfepttawsRegency Hospital Companyerum or plasma total bilirubin measurement (mass/volume)Ordered By: Katya Cerna on 98-05-0602Rmfnoprtv [Mass/Vol]0.9 mg/dL0.3-1.2FMercy Hospitalerum or plasma total carbon dioxide measurement (moles/volume)Ordered By: Katya Cerna on 05-05-9002GQ9 [Moles/Vol]26.3 mmol/L22.0-30.0[facility] Serum or plasma total cholesterol/high density lipoprotein (HDL) cholesterol mass ratOrdered By: Katya Cerna on 32-62-2573Pbrjpobixhn.total/Cholesterol in HDL [Mass ratio]2.4 {ratio}<5.0[facility] Hospital Companyerum or plasma urea nitrogen measurement (mass/volume)Ordered By: Katya Cerna on 05-06-2022 Urea nitrogen [Mass/Vol]14 mg/dL9-23[facility] Triglyceride [Mass/volume] in Serum or PlasmaOrdered By: Katya Cerna on 59-46-5827Mkxruhpjpgim [Mass/Vol]39 mg/xY69-944SmhwyvlstFostoria City Hospital Comment on above:TRIG ATP III CLASSIFICATIONTRIG less than 150 mg/dL NormalTRIG 150-199 mg/dL Borderline highTRIG 200-500 mg/dL High TRIG greater than 500 mg/dL Very highStandard traceable to the Center for Disease Conrtrol and Prevention (CDC) test method.COVID-19 PCRon 01-88-8471JOKC-CoV-2, NAANot DetectedNormalNot DetectedThe [facility] Center – JacksonComment on above:Result Comment: This test was developed and its performance characteristics determined by [employer]. This test has not been FDA cleared [...] a negative (not detected) result in this assay.Performed By: #### CVDPCR #### [facility] [address] [id number] Edie KarenCoding Summary.on 01-37-9775Ftwfal Summary.CODING DATE: 09/12/2017 FINAL [facility] STATUS: Home (Routine DC) PAYOR: Self [...] Carley Treviño Revised Date Saved: 09/12/2017 10:53 amNormalFirelands Regional Medical CenterAcetamnphn Lvlon 65-86-8304Qtoftyiopycpu mass conc14 microgram/oJSxs69-66AaboecFirelands Regional Medical CenterComment on above: Performed By: #### [id number], [id number], [id number] ####[facility] [address] [place], [place] [address]Uale Diffon 12-56-9102Umlomgpqr Auto #/vol (Bld)0.8 %Normal0.0-2.0Fire[facility] Regional Medical CenterComment on above:Order Comment: Order Added by Discern Expert.Performed By: #### [id number], [id number], [id number] ####[address] [address]Ttrrdtgsb/Leukocytes Auto Pure number fraction (Bld)0.1 E9/LNormal0.0-0.2 [facility] Medical CenterComment on above:Order Comment: Order Added by Discern Expert.Performed By: #### [id number], [id number], [id number] ####[address] [address]Xlejitczsiz/100 WBC Auto (Bld)0.2 %Normal0.0-8.0Fire[facility] Regional Medical CenterComment on above:Order Comment: Order Added by Discern Expert.Performed By: #### [id number], [id number], [id number] ####[address] [address]Byszbvwhovr/Leukocytes Auto Pure number fraction (Bld)0.0 E9/LNormal0.0-0.5 [facility] Medical CenterComment on above:Order Comment: Order Added by Discern Expert.Performed By: #### [id number], [id number], [id number] ####[address] [address]Vbmkbsvyzlw/100 WBC Auto (Bld)29.7 %Ajwzsf89.0-50.0[facility] Medical CenterComment on above:Order Comment: Order Added by Discern Expert.Performed By: #### [id number], [id number], [id number] ####[address] [address]Aeccwbiewwc/Leukocytes Auto Pure number fraction (Bld)2.0 E9/LNormal1.0-4.0 [facility] CenterComment on above:Order Comment: Order Added by Discern Expert.Performed By: #### [id number], [id number], 7992711 ####[address] [address]Nenidhkeb/100 WBC Auto (Bld)4.7 %Normal4.0-14.0[facility] Regional Medical CenterComment on above:Order Comment: Order Added by Discern Expert.Performed By: #### [id number], [id number], [id number] ####[address] [address]Cfcexmwul/Leukocytes Auto Pure number fraction (Bld)0.3 E9/LNormal0.2-1.0 [facility] CenterComment on above:Order Comment: Order Added by Discern Expert.Performed By: #### [id number], [id number], 6666241 ####[address] [address]Cegtyaasmvz/100 WBC Auto (Bld)64.6 %Pkbhwh41.0-75.0[facility] Medical CenterComment on above:Order Comment: Order Added by Discern Expert.Performed By: #### [id number], [id number], 5532059 ####[address] [address]Fqjaiawgxsh/Leukocytes Auto Pure number fraction (Bld)4.4 E9/LNormal2.0-7.5 [facility] CenterComment on above:Order Comment: Order Added by Discern Expert.Performed By: #### [id number], 81346557, 6390446 ####[address] [address]R hCG Qualon 58-51-7092Rglp hCG QlNegativeNormalFirelands Regional Medical CenterComment on above: Performed By: #### [id number], 06936405, 3936015 ####[address] [address]PLOmu 30-61-0949Godgy gap 3 molar conc14 mmol/LNormal6-16[facility] Medical CenterComment on above:Performed By: #### [id number], [id number], 1922971 ####[address] [address]Vbjnpiu mass conc9.3 mg/dLNormal8.9-11.1FHolzer Medical Center – JacksonComment on above:Performed By: #### [id number], 87420476, 6916556 ####[address] [place], [place] [address]Uyjontkp molar vwnc089 mmol/TAli221-788MffskjFirelands Regional Medical CenterComment on above:Performed By: #### [id number], 45172278, [id number] ####[facility] [address] [place], [place] [address]SX4 molar conc23 mmol/LNormal 21-31[facility] Regional Medical CenterComment on above:Performed By: #### [id number], 75632423, 4465351 ####[address] [address]Pthjypaiju mass conc0.8 mg/dLNormal0.5-1.3FHolzer Medical Center – JacksonComment on above:Performed By: #### [id number], 89547062, 2319603 ####[address] [address] Glucose mass apga626 mg/hCGhpmih43-451EtahamFirelands Regional Medical CenterComment on above:Result Comment: If this glucose result represents a fasting glucose, interpretation should refer tothe following reference range: 55-99 mg/dL Performed By: #### [id number], 77583222, 2047181 ####[address] [address]Nkwlbydvj molar conc2.9 mmol/LLow 3.5-5.3FHolzer Medical Center – JacksonComment on above:Performed By: #### [id number], 40208773, 8710803 ####[address] [address]Zylxtq molar gujo871 mmol/UBua553-011SayrqhFirelands Regional Medical CenterComment on above:Performed By: #### [id number], 03135589, 6614636 ####[address] [place], [place] [address]Qqfe nitrogen mass conc11 mg/dLNormal5-21Fire[facility] Medical CenterComment on above:Performed By: #### [id number], 08587682, 4829107 ####[address] [address]Pgmf nitrogen/Creatinine mass ratio14 No TwraqBxceds59-93IcykkqFirelands Regional Medical CenterComment on above:Performed By: #### [id number], 93150972, 6815309 ####[address] [address]EIG w/ Auto Diffon 28-74-6659Cxxccbhzbnf distribution width Auto Ratio (RBC)13.7 %Vlzmif73.9-14.2FHolzer Medical Center – JacksonComment on above:Performed By: #### [id number], 14608632, 5197872 ####[address] [address]Jyyuwhaydx Auto Volume Fraction (Bld)41.6 %Puozxa80.0-46.0[facility] Regional Medical CenterComment on above:Performed By: #### 45757908, 42123918, 0685652 ####[address] [address]Hemoglobin mass conc (Bld)14.4 g/sOImorlw44.0-16.0[facility] Medical CenterComment on above:Performed By: #### [id number], 10141431, 9490529 ####[address] [address]MCH Auto Entitic mass (RBC)30.9 rmBseksg74.0-34.0 [facility] Medical CenterComment on above:Performed By: #### [id number], 59360501, 0521169 ####[address] [address]MCHC Auto mass conc (RBC)34.5 g/sLYpoapr69.4-39.3FHolzer Medical Center – JacksonComment on above:Performed By: #### 00534659, 08910241, 0225660 ####[address] [address]MRM Auto Entitic volume (RBC)89.5 cOUddiqm77.0-100.0[facility] Regional Medical CenterComment on above:Performed By: #### [id number], 88400138, 8024926 ####[address] [address]Fxwmrpje mean volume Auto Entitic volume (Bld)9.6 fLNormal6.4-10.8[facility] Comment on above:Performed By: #### [id number], 48132756, 0286492 ####[address] [address]Axvwdygiy Auto #/vol (Bld)291.0 E9/YFrdfay931.0-500.0Fire[facility] Regional Medical CenterComment on above: Performed By: #### [id number], 12954841, 7269258 ####[address] [address]YJW Auto #/vol (Bld)4.6 E12/LNormal 4.3-5.9[facility] Medical CenterComment on above:Performed By: #### 55576926, 78199817, 3716849 ####[address] [address]BRW corrected for nucl RBC Auto #/vol (Bld)6.8 E9/LNormal 4.0-11.0[facility] Medical CenterComment on above:Performed By: #### [id number], 05028231, 7723739 ####[address] [address] Clinical Summaryon [id number] Clinical Summary [address] [address] ED Clinical SummaryPerson Information Name: CARINA GOODEN/Ivone Age: 22Years : 1995 12:00 AM Sex: Female Language:Albanian PCP: NONE, XXXX Marital Status:Single Phone: MRN: Visit Id: Visit Reason:General medical; Intentional drug overdose; TOOK TOO MUCH MEDICATION Speciality: Acuity: 2 Enc Type: Emergency Med Service: Emergency Arrival:09/10/2017 11:11 AM Discharge: 09/10/2017 3:46 PM LOS: 000 04:35 Checkin:09/10/2017 11:11 AM Checkout: 09/10/2017 3:46 PM Dispo Type: Home (Routine DC) EVENTS:Event Name Event Status Request D ate/Time Start Date/Time Complete Date/Time Arrive Complete 09/10/2017 [...] 11:18 AM 09/10/2017 11:44 AM 09/10/2017 11:44 AMIsolation Screening Request 09/10/2017 11:20 AM Registration Complete 09/10/2017 11:21 AM 09/10/2017 12:25 PM 09/10/2017 12:25 PM EKG Complete 09/10/2017 11:23 AM 09/10/2017 11:41 AM Meds Admin Complete 08/20 11:23 AM 09/10/2017 12:24 PM Pending Labs [...] AM Pending Labs Complete 09/10/2017 11:41 AM 09/10/201711:41 AM 09/10/2017 12:01 PM Lab Complete 09/10/2017 [...] PM 09/10/2017 3:46 PM 09/10/2017 3:46 PM ADDRESS:[address] [place] [id number] DOC NOTES: Patient: CARINA GOODEN Age: 22 years Sex: Female :1995 Associated Diagnoses: None Author: Mirza Hogan DO [...] 0200. 4 episodes of vomiting today. pt taj med for depression. . History of Present Illness 22 female presented to the emergency departmentwith suicidal ideation. The patient states that she [...] in this report the patient's positive and negativeresponses for review of systems for constitutional, eyes, ENT, cardiovascular, respiratory, gastrointestinal, neurological, genitourinary, musculoskeletal, and integument systems and related systems to the presenting problem are either as stated in the HPI or were not pertinent or were negative forthe symptoms and/or complaints related to the presenting medical problem. Health Status Allergies: Allergic Reactions (Selected)Severity Not DocumentedBee Stings- Swelling.. Medications: (Selected) Inpatient MedicationsOrderedNS 1000 ml Bolus 1,000 mL: 1,000 mL, IV, 1,000 mL/hr, for 1 hour(s), Stopdate 09/10/17 12:21:00 EST, STAT, Start date 09/10/17 11:22:00 EST, 1 hour(s), Total volume (mL): 1,000, Bolus Dose: 1,000 mLDocumented MedicationsDocumentedFLUoxetine 10 mg Cap: Refills(s) 0TriNessaoral tablet: Refill(s) 0. Past Medical/ Family/ Social History Medical history: ResolvedDepression ([id number]): Resolved.. Surgical history: No active procedure history items have been selected or recorded.. Family history: No family history items have been selected or recorded.. Social history: Social & Psychosocial BwfnepEwzuuyi38/26/2017 Risk Assessment: Denies Alcohol Use09/10/2017 Use: Current Frequency: 1-2 times per month Has alcohol use interfered with work or home life? No Do you ever drink more than intended? No Has anyone been hurt or at risk by your drinking? No Ready to change: NoSubstance Abuse09/10/2017 Use: Current Comment: denied - 09/10/2017 11:41 - Arm[place], JcqunCxzihrr38/26/2017 Risk Assessment: Denies Tobacco Use. Problem list: [...] signs have been reviewed and the patient isnot hypoxic.. General: Alert, Patient is tearful. Skin: Warm, dry, pink, intact, no rash, pale. Head: Normocephalic, atraumatic. Neck: No JVD. Eye: Pupils are equal, round and reactive to light, extraocular movements are intact, normal conjunctiva. Ears, nose, mouth and throat: Oral mucosa moist. Ca rdiovascular: Regular rate and rhythm, No murmur, Normal peripheral perfusion, No cardiac rub, Respiratory: Lungs are clear to auscultation, breath sounds are equal, Symmetrical chest wall expansion,Respirations: Regular, Retractions: None. Gastrointestinal: Soft, Nontender, Non distended, No organomegaly, Guarding: Negative, Rebound: Negative, Mass: Negative. Musculoskeletal: Normal ROM, normalstrength, no swelling. Neurological: No focal neurological deficit [...] 1 hour(s), Stop date 09/10/17 12:21:00 EST, STA T, Start date 09/10/17 11:22:00 EST, 1 hour(s), Total volume (mL): 1,000, Bolus Dose: 1,000 mLO2 Therapy: 09/10/17 11:22:00 EST, Soon, 4 L/min, Nasal Cannula, Once, Stop date 09/10/17 11:22:00 EST, 02 NC Keep 02 > 93%Ordered (In- Lab)Acetaminophen Level: Blood, Stat collect, 09/10/17 11:22:00 EST, Stop date 09/10/17 11:23:00 EST, Lab CollectAspirin Level: Blood, Stat collect, 09/10/17 11:22:00 EST, Stop date 09/10/17 11:23:00 EST, Lab CollectBMP: Blood, Stat collect, 09/10/17 11:22:00 EST, Stop date 09/10/17 11:23:00 EST, Lab CollectCBC w/ Auto Diff: Blood, Stat collect, 09/10/17 11:22:00 EST, Stop date 09/10/17 11:23:00 EST, Lab CollectDrug Screen Urine: Urine, Stat collect, 09/10/17 11:2 2:00 EST, Stop date 09/10/17 11:23:00 EST, Nurse [...] Auto 64.6 % Lymph Auto 29.7 % Keith Auto 4.7 % Eos Auto 0.2 % Basophil Auto 0.8 % Neutro Absolute 4.4 E9/L Lymph Absolute 2.0 E9/L Keith Absolute 0.3 E9/L Eos Absolute 0.0 E9/L Basophil Absolute0.1 E9/L Glucose Lvl 105 mg/dL BUN 11 mg/dL Creatinine 0.8 mg/dL eGFR >60 mL/min/1.73 m2 eGFR AA>60 mL/min/1.73 m2 BUN/Creat Ratio 14 Sodium Lvl 134 mmol/L LOW Potassium Lvl 2.9 mmol/L LOW Chlo ride 100 mmol/L LOW CO2 23 mmol/L AGAP 14 mEq/L Calcium Lvl 9.3 mg/dL Alk Phos 46 Int._Unit/L ALT 18 Int._Unit/L AST 24 Int._Unit/L Total Protein 8.1 gm/dL HI Albumin Lvl 4.7 gm/dL Globulin 3.4 gm/dLA/G Ratio 1.4 Bili Total 0.6 mg/dL Bili [...] Impression and Plan Diagnosis General medical (PNED [id number], Reason For Visit, Emergency medicine, Medical) Complaint of Intentional drug overdose (PNED [id number], Reason For Visit, Emergency medicine, Medical) Intentional drug overdose (PLZ29-YB T50.902A, Discharge, Emergency medicine, Medical) Suicidal ideation (TIK06-IS R45.851, Discharge, Emergency medicine, Medical) Plan Condition: Improved, Stable. Disposition: Discharged: to home. Patient was given the following educational materials: Nontoxic Ingestion, Poisoning Information, Adult, Suicidal Feelings: How to Help Yourself, Suicidal Feelings: How to Help Yourself,Poisoning Information, Adult, Nontoxic Ingestion. Follow up with: ; [facility] In 3 days 09/13/2017. Counseled: Patient, Regarding diagnosis, Regarding diagnostic results, Regarding treatment plan, Regarding prescription, Patient indicated understanding of instructions. Notes: Return to the ER if condition changes or worsens or if you have any other concerns. Otherwise see your family doctor for follow up.. MEDICAL INFORMATION: Prescriptions Given:PATIENT EDUCATIONINFORMATION: Instructions:Suicidal Feelings: How to Help Yourself; Poisoning Information, Adult; Nontoxic Ingestion Follow up:With: Address: When: [facility] In 3 days 09/13/2017 DIAGNOSIS:Intentional drug overdose; Suicidal ideationFilipeer Agustin Medical CenterED Note-Nursingon 55-11-4623RE Note-Nursingpt reports took the tylenol in hopes of not waking up, failing a class in nursing school seen her xboyfriend last night with sixto murphy and he [...] dr Yee notified pt denied needs getting dressedNormYonatan Velez Medical CenterED Note-Physicianon [id number] Note-PhysicianPatient: CARINA GOODEN Age: 22 years Sex: Female [...] control. The patient had her menses 1 monthago. She denies any abdominal pain but did have some nausea and vomiting prior to arrival. She camein today because she is concerned about wanting to harm herself and she wanted to get help. She hashad prior suicide ideation and attempt in the [...] volume (mL): 1,000, Bolus Dose: 1,000 mLDocumented MedicationsDocumentedFLUoxetine 10 mg Cap: Refills(s) 0TriNessa oral tablet: Refill(s) 0. Past Medical/ Family/ Social History Medical history: ResolvedDepression ([id number]): Resolved.. Surgical history: No active procedure history items have been selected or recorded.. Family history: No family history items have been selected or recorded.. Social history: Social & Psychosocial NioavaXsfuzqy89/26/2017 Risk Assessment: Denies Alcohol Use09/10/2017 Use: Current Frequency: 1-2 times per month Has alcohol use interfered with work or home life? No Do you ever drink more than intended? No Has anyone been hurt or at risk by your drinking? No Ready to change: NoSubstance Abuse09/10/2017 Use: Current Comment: denied - 09/10/2017 11:41 - Carole Roberts RN08/13/2016Risk Assessment: Denies Tobacco Use. Problem list: No [...] Gastrointestinal: Soft, Nontender, Non distended, No organomegaly, Guardin g: Negative, Rebound: Negative, Mass: Negative. Musculoskeletal: Normal [...] with boys are serving as a trigger forher suicidal ideation.. Medical Decision Making Orders Launch Orders Pharmacy:potassium chloride 20mEq ER Tab (Order): 40 mEq, Tab-ER, Oral, Once, Stop date 09/10/2017 12:10 EST, STAT, Start date 09/10/2017 12:10 EST, launch Order Profile (Selected) Inpatient OrdersInProcess (Exam Complete)ECG 12 Lead Adult: 09/10/17 11:22:00 EST, Stat, Palpitations (785.1), FT - Cardiology, OnceOrderedCommunication Order Physician to Nursin09/10/17 11:22:00 EST, Stat, Stop date 09/10/17 11:22:00 EST, Patien t in a gown.Continuous Pulse Oximetry: 09/10/17 11:22:00 [...] EST, 02 NC Keep 02 > 93%Ordered (In- Lab)Acetaminophen Level: Blood, Stat collect, 09/10/17 11:22:00 EST, Stop date 09/10/17 11:23:00 EST, Lab CollectAspirin Level: Blood, Stat collect, 09/10/17 11:22:00 EST, Stop date 09/10/17 11:23:00 EST, Lab CollectBMP: Blood, Stat collect, 09/10/17 11:22:00 EST, Stop date 09/10/1810:23:00 EST, Lab CollectCBC w/ Auto Diff: Blood, [...] RBC 4.6 E12/L Hgb 14.4 gm/dL Hct 41.6% MCV 89.5 fL MCH 30.9 pg MCHC 34.5 gm/dL RDW 13.7 % Platelet 291.0 E9/L MPV 9.6 fL Neutro Auto 64.6 % Lymph Auto 29.7 % Keith Auto 4.7 % Eos Auto 0.2 % Basophil Auto 0.8 % Neutro Absolute 4.4 E9/L Lymph Absolute 2.0 E9/L Keith Absolute 0.3 E9/L Eos Absolute 0.0 E9/L Basophil Absolute 0.1 E9/L Glucose Lvl 105 mg/dL BUN 11 mg/dL Creatinine 0.8 mg/dL eGFR >60 mL/min/1.73 m2 eGFR AA >60 mL/min/1.73 m2 BUN/Creat Ratio 14 Sodium Lvl 134 mmol/L LOW Potassium Lvl 2.9 mmol/L LOW Chloride 100 mmol/LLOW CO2 23 mmol/L AGAP 14 mEq/L Calcium [...] Impression and Plan Diagnosis General medical (PNED [id number], Reason ForVisit, Emergency medicine, Medical) Complaint of Intentional drug overdose (PNED [id number], Reason For Visit, Emergency medicine, Medical) Intentional drug overdose (FIF36-FT T50.902A, Discharge, Emergency medicine, Medical) Suicidal ideation (HEO12-RP R45.851, Discharge, Emergency medicine, Medical) Plan Condition: Improved, Stable. Disposition: Discharged: to home. Patient was given the following educational materials: Nontoxic Ingestion, Poisoning Information, Adult, Suicidal Feelings: How to Help Yourself, Suicidal Feelings: How to Help Yourself, Poisoning Information, Adult, Nontoxic Ingestion. Follow up with: ; [facility] In 3 days 09/13/2017. Counseled: Patient, Regarding diagnosis, Regarding diagnostic results, Regarding treatment plan, Regarding prescription, Patient indicated understanding of instructions. Notes: Return to the ER if condition changes or worsens or if you have any other concerns. Otherwise see your family doctor for follow up..[facility] HospitalComment on above:Result Comment: Electronically Signed By: Mirza Hogan DO\.br\Date and Time Signed: 09/10/17 15:41ESTED Patient Education Noteon [id number] Patient Education NotePatient Education Materials Follows:MedicineSuicidal Feelings, How to Help YourselfEveryone feels sad or unhappy at times, but depressing thoughts and feelings of hopelessness can lead to thoughts ofsuicide. It can seem as if life is [...] day. It is best if it is qcvm-qh-duer. Remember, they will want to help you.? Eat a regularly spaced and well-balanced diet. ? Get plenty of rest. ? Avoid alcohol and drugs because they will only makeyou feel worse and may also lower your inhibitions. Remove them from the home. If you are thinking of taking an overdose of your prescribed medicines, give your medicines to someone who can give themto you one day at a time. If you are on antidepressants, let your caregiver know of your feelings so he or she can provide a safer medicine, if that is a concern.? Remove weapons or poisons from yourhome.? Try to stick to routines. Follow a schedule and remind yourself that you have to keep that schedule every day. ? Set some realistic goals and achieve them. Make a list and cross things off as you go. Accomplishments give a sense of worth. Wait until you are feeling better before doing thingsyou find difficult or unpleasant to do.? If [...] the [place]).? Call a suicide hotline:? 7-999-533-TALK ( ) in the [place].? 0-174-PFAVKFN ( ) in the [place].? in the [place] for Moroccan-speaking counselors.? 5-820-482-4TTY ( ) in the [place] for TTY users.? Visit the following websites for information and help:? National Suicide Prevention Lifeline: www.suicidepreventionlifeline.org? Hopeline: www.hopeline.Meridian? [employer] for Suicide Prevention: www.afsp.org? For lesbian, hollis, bisexual, transgender, or questioning youth, contact The [place] Project:? 1-569-8-U-ELOY ( ) in the [facility].? www.thetrevorproject.org? In [place], treatment resources are listed in each province with listings available under [employer] or similar titles. Another source for Crisis Centres by Province is located at http://www.suicideprevention.ca/zm-jfwrpo-zvo/mwoq-a-iynqze-centre-now/crisis- centresDocument Released: 01/09/2004 Document Revised: 09/26/2012 Document Reviewed: 10/30/2014ExitCare? Patient Information ?2015 [employer]. This information is not intended to replace [...] hours. Then start with small sips of clearliquids until your stomach settles. You should not drink alcohol or take illegal recreational drugsor other mind- altering substances as this may worsen your condition. Sometimes the effects of drugsand other substances can be delayed.SEEK IMMEDIATE MEDICAL CARE IF:? You develop confusion, sleepiness, agitation, or difficulty walking.? You develop breathing problems, a cough, difficulty swallowing, or excess mucus.? You develop a stomach ache, repeated vomiting, or severe diarrhea.? You develop weakness, fever, or dehydration.Document Released: 08/12/2005 Document Revised: 09/26/2012 Document Reviewed: 08/05/2009ExitCare? Patient Information ?2014 [employer]. This information is not intended to replace [...] causes illness or harm to the body. Poisoningis often caused by products that are commonly found in homes. Many substances can become poisonous if used in ways or amounts that are not appropriate. Some common products that can cause poisoning are: ? Medicines, including prescription medicines, zfcd-frv-whfbjva pain medicines, vitamins, iron pills, and herbal supplements.? Cleaning or laundry products.? [place] and paint thinner.? [place] or insect killers.? Perfume, hair spray, or nail products.? Alcohol.? Plants, such as philodendron, poinsettia, oleander, castor baker, cactus, and tomato plants.? Batteries.? Furniture belizean.? Drain endoscopy tech .? Antifreeze or other automotive products.? Gasoline, manager of business operations fluid, or lamp oil.? Carbon monoxidegas from furnaces or automobiles.? Toxic fumes from the burning of plastics or certain other materials.WHAT ARE SOME FIRST-AID MEASURES FOR POISONING?The local poison control center must be contactedwhenever a person may have been exposed to poison. The poison fire control assistant will often give a set of directions to follow over the phone. These directions may include the following:? Remove any substance that is still in the mouth if the poison was not food or medicine. Drink a small amount ofwater. ? Keep the medicine container if too much medicine or the wrong medicine was swallowed. Use it to identify the medicine to the poison fire control assistant.?? Get away from the area where exposure [...] or chemical got in the eyes. ? Begincardiopulmonary resuscitation (CPR) if breathing stops. HOW CAN [...] following the specific disposal instructions on the med icine label or the patient information that came with the medicine. Do not put medicine in the trash or flush it down the toilet. Use the community's drug take-back program to dispose of medicine. Ifthese options are not available, take the medicine out of the original container and mix it with anundesirable substance, such as coffee grounds or david litter. Seal the mixture in a sealable bag, can, or other container and throw it away.?? Keep all dangerous household products (such as manager of business operations fluid, paint thinner and remover, gasoline, and antifreeze) in locked cabinets. ? Do not mix different household chemicals with each other.? Use protective equipment (gloves, goggles, masks, aprons) as needed when using chemicals or endoscopy tech.? Install a carbon monoxide detector in your [...] breathing or stops breathing.? Develops chest pain.? Hastrouble staying awake or becomes unconscious.? Has a seizure.? Has severe vomiting or bleeding.? Has a worsening headache.? Has a decreased level of alertness.? Develops a widespread rash that may ormay not be painful.? Has changes in vision. ? Has difficulty swallowing.? Develops severe abdominal pain.FOR MORE INFORMATIONAmerican Association of Poison Control Centers: www.aapcc.orgDocument Released: 06/21/2013 Document Revised: 11/19/2014 Document Reviewed: 06/21/2013ExitCare? Patient Information ?2014 [employer]. This information is not intended to replace advice given to you by your health care provider. Make sure you discuss any questions you have with your health care provider.[facility] Patient Summaryon [id number] Patient Summary [place] [id number] Patient Discharge Instructions Person Information Name: CARINA GOODEN Age: 22 Years Date: 09/10/2017 11:11 AMDischarge Diagnosis: Intentional drug overdose; Suicidal ideation Primary Care Physician: NONE, XXXX Provider InformationPrimary Provider: Johanna Hogan DO Gathering Worker:None The exam and treatment you received in the Emergency Department were for an urgent problem and are not intended as complete care. It is important that you f ollow up with a doctor, nurse practitioner, or physician?s paraprofessional education assistant for ongoing care. If your symptoms become worse or you do not improve as expected and you are unable to reach your usual health care provider, you should return to the Emergency Department. We are available 24 hours a day. CARINA GOODEN has been given the following list of patient education materials, prescriptions and follow-up instructions: Follow-up Instructions:With: Address: When: [facility] In 3 days 09/13/2017 In the event that this physician does not participate in your insurance network, please consult with your insurance company to find a nearby participating provider. Patient Educa tion Materials:Suicidal Feelings: How to Help Yourself; Poisoning Information, Adult; Nontoxic Ingestion Medications Given:Medication Dose Route Sodium Chloride 0.9% intravenous solution 1000.00 mL Initial Volume 1000.00 mL/hr IV Right Antecubit Rad potassium chloride 40.00 mEq Oral Medication Info rmation:Medications to Continue with No ChangesOther Medicationsethinyl estradiol-norgestimate (TriNessa oral tablet) fluoxetine (FLUoxetine 10 mg Cap) Comment: Pharmacy Information: Thank you for choosing [facility] Patient Education Materials: Suicidal Feelings, How [...] day. It is best if it is epnf-jt-fsqh. Remember, they willwant to help you.? Eat a regularly spaced [...] or unpleasant to do.? If you are able,try to start exercising. Even half-hour periods of [...] off your depression.? Keep your living space well- lighted.GET HELPContact a suicide hotline, crisis center, or local suicide prevention center forhel right away. Local centers may include a hospital, clinic, community service organization, social service provider, or health department.? Call your local emergency services (911 in the [place]).? Call a suicide hotline:? 7-476-086-TALK ( ) in the [place].? 5-560-DNEYZZU ( ) in the [place].? in the [place] for Moroccan-speaking counselors.? 2-580-411-4TTY ( ) in the [place] for TTY users.? Visit the followingwebsites for information and help:? National Suicide Prevention Lifeline: www.suicidepreventionlifel ine.org? Hopeline: www.hopeline.com? [place] [employer] for Suicide Prevention: www.afsp.org? For lesbian, hollis, bisexual, transgender, or questioning youth, contact The [place] Project:? 8-273-6-U-ELOY ( ) in the [place].? www.theMDJunctionvorproject.org? In [place], treatment resources are listed in each province with listings available under The [employer] for [employer] or similar titles. Another source for Crisis Centres by Province is located at http://www.suicideprevention. ca/vv-ioohsx-dgv/geof-n-moiwsj-centre-now/crisis-centresDocument Released: 01/09/2004 Document Revised: 09/26/2012 Document Reviewed: 10/30/2014ExitCare? Patient Information ?2015 [employer]. Thisinformation is not intended to replace advice given [...] from mild to very severe or even fatal.Most poisonings take place in the home and [...] poisoning are: ? Medicines, including prescription medicines, umsh-deg-iiuvcdr pain medicines, vitamins, iron pills, and herbal supplements.? Cleaning or laundry products.? [place] and paint thinner.? [place] or insect killers.? Perfume, hair spray, or nail products.? Alcohol.? Plants, such as philodendron, poinsettia, oleander, castor baker, cactus, and tomato plants.? Batteries.? Furniture belizean.? Drain endoscopy tech.? Antifreeze or other automotive products.? Gasoline, manager of business operations fluid, or lamp oil.? Carbon monoxide gas from furnaces or automobiles.? Toxic fumes from the burning of plastics or certain other materials.WHAT ARE SOME FIRST-AID MEASURES FOR POISONING?The local poison control center must be contacted whenever a person may have been exposed to poison. The poison fire control assistant will often give a set of directions [...] to identify the medicine to the poison fire control assistant.?? Get away from the area where exposure occurred as soon as possible if the poison was from fumes or chemicals.? Get fresh air as soonas possible if a poison was inhaled. ? [...] Keep all dangerous household products (such as manager of business operations fluid, paint thinner and remover, gasoline, and antifreeze) in locked cabinets. ? Do not mix different household chemicals with each other.? Use protective equipment (gloves, goggles, masks, aprons) as needed when using chemicals or endoscopy tech.? Install a carbon monoxide detector in your home.WHENSHOULD YOU SEEK HELP?Contact the poison control center [...] to find the number.The local emergency services (236 in [place] must be contacted if a person has been exposed to poison and: ? Has trouble breathing or stops breathing.? Develops chest pain.?Has trouble staying awake or becomes unconscious.? Has [...] 11/19/2014 Document Reviewed: 06/21/2013ExitCare? Patient Information ?2014 [employer] [facility]. This information is not intended to replace advice given to you by your health care provider. Make sure you discuss any questions you have with your health care provider.Nontoxic IngestionYour exam shows your ingestion is not likely to cause serious medical problems. Further treatment is not needed at this time. If you have vomited since your ingestion, you should notdrink or eat for at least 2 to 3 hours. Then start with small sips of clear liquids until your stomach settles. You should not drink alcohol or take illegal recreational drugs or other mind-altering s ubstances as this may worsen your condition. Sometimes [...] 09/26/2012 Document Reviewed: 08/05/2009ExitCare? Patient Information ?2014 [employer]. This information is not intended to replace advice given to you by your health care provider. Make sure you discuss any questions you have with your health care provider.GIACOMO Barrios ALICYN D , have received the following patient education materials/instructions and have verbalized understanding: Patient Education Materials: Suicidal Feelings: How to Help Yourself; Poisoning Information, Adult; Nontoxic Ingestion Follow-up Instructions: With: Address: When: [facility] In 3 days 09/13/2017 Prescriptions: Patient Signature Date Clinician/Nurse Signature Date 09/10/17 15:46:57NormalFirelands Regional Medical CenterEthanolon 12-29-7449Dvulxpa mass concmg/dLNormal<=7FHolzer Medical Center – JacksonComment on above:Performed By: #### [id number], [id number], [id number] ####[facility] [address] [place], [place] [address]Zag Fun Panelon 09-10-2017 BILIRUBIN.NON-GLUCURONIDATED:MSCNC:PT:SER/PLAS:QN:UTCAbnormal0.1-0.9Fire[facility] Regional Medical CenterComment on above:Result Comment: Result verified by Discern Rule. Performed result UTC (Unable to Calculate) was sent as an Alpha code due the inability to calculate a valid numeric value.Performed By: #### [id number], [id number], [id number] ####[facility] [address] [place], [place] [address]Hkcxnqqtk.direct mass concmg/dLNormal0.1-0.4FHolzer Medical Center – JacksonComment on above:Performed By: #### [id number], [id number], [id number] ####[facility] [address] [place] [address] Albumin mass conc4.7 g/dLNormal3.3-5.0Fire[facility] Regional Medical CenterComment on above:Performed By: #### [id number], [id number], [id number] ####[facility] [address] [place] [address]Ocwmvyb mass conc1.4 g/dL Normal1.1-2.2FHolzer Medical Center – JacksonComment on above:Performed By: #### [id number], [id number], [id number] ####[address] [address]ZYW enzyme act/vol46 Int._Unit/RRnabrr37-75LzyasyUniversity of Maryland Rehabilitation & Orthopaedic InstituteComment on above:Performed By: #### [id number], [id number], [id number] ####[address] [address]ZMG No additional P-5'-P enzyme act/vol18 Int._Unit/LNormal6-46Fire[facility] Regional Medical CenterComment on above:Performed By: #### [id number], [id number], [id number] ####[address] [address]EAR enzyme act/vol24 Int._Unit/LNormal5-43Fire[facility] Medical CenterComment on above:Performed By: #### [id number], [id number], [id number] ####[address] [address]Japnaxjhn mass conc0.6 mg/dL Normal0.0-1.1FHolzer Medical Center – JacksonComment on above:Performed By: #### [id number], [id number], [id number] ####[address] [address]Wkcfpltu Calculated mass conc (S)3.4 g/dLNormal 1.4-4.0Fire[facility] Regional Medical CenterComment on above:Performed By: #### [id number], [id number], 7592875 ####[facility] [address] [place], [place] [address]Bgibhiq mass conc8.1 g/dLHigh6.0-7.8Fire[facility] Medical CenterComment on above:Performed By: #### [id number], [id number], [id number] ####[address] [address]Skvgjg Levelon 70-58-1973Kdmpvn enzyme act/vol17 unit/FIkvlak52-82TtuaapFirelands Regional Medical Center Comment on above:Performed By: #### [id number], [id number], [id number] ####[address] [address]Stcmieevvwin 48-76-6208Zvhhtskgypw mass concmg/dLLow6-29Fire[facility] Regional Medical CenterComment on above:Performed By: #### [id number], 65937256, 3972227 ####[address] [address]S BetaHcg Qualon 09-10-2017 HCG.beta subunit molar conc (U)NegativeNormalFirelands Regional Medical CenterComment on above:Performed By: #### [id number] ####[address] [address]Q Drug Screenon 09-10-2017 Amphetamines Screen method >1000 ng/mL Ql (U)NegativeNormalNegativeFirelands Regional Medical CenterComment on above:Result Comment: Negative Cutoff: <1000 ng/mL Performed By: #### [id number], [id number], [id number] ####[facility] [address] [place], [place] [address]Obfccbrijgjh Screen Ql (U)Negative NormalNegativeFirelands Regional Medical CenterComment on above:Result Comment: Negative Cutoff: <200 ng/mLPerformed By: #### [id number], [id number], [id number] ####[facility] [address] [place] [address] Benzodiazepines Screen Ql (U)NegativeNormalNegativeFirelands Regional Medical Center Comment on above:Result Comment: Negative Cutoff: <200 ng/mLPerformed By: #### [id number], [id number], [id number] ####[place] [address] [place], [place] [address]Kjgbjmh Ql (U)NegativeNormalNegativeFirelands Regional Medical CenterComment on above:Result Comment: Negative Cutoff: <300 ng/mL Performed By: #### [id number], [id number], 9105515 ####[address] [address]Jaobqna Screen Ql (U)NegativeNormal [facility] County HospitalComment on above:Result Comment: Negative Cutoff: <300 ng/mLPerformed By: #### [id number], [id number], 8173328 ####[address] [address]Jmgixhqgeavjq Screen method >25 ng/mL Ql (U)[facility] Specialty HospitalrmalNegHolzer Hospital Comment on above:Result Comment: Negative Cutoff: <25 ng/mLThese drug screen results are to be used for medical (i.e., treatment) purposes only. Unconfirmed drug screening results must not be used for non-medical purposes (e.g., employment testing, legal testing).Performed By: #### [id number], [id number], [id number] ####[place] [address] [place], [place] [address]Cvbwzwqreebbsjahxxfv Screen method >50 ng/mL Ql (U)NegativeNormalNegative [facility] CenterComment on above:Result Comment: Negative Cutoff: <50 ng/mLPerformed By: #### [id number], 98776446, 0527519 ####[address] [address]zDYZdi 01-68-0401HNX/1.73 sq M predicted among blacks MDRD vol rate/area (S/P/Bld)mL/min/{1.73_m2}Normal>=59 [facility] Medical CenterComment on above:Order Comment: Order added by Discern Expert.Result Comment: eGFR is race adjusted. AA=. Performed By: #### [id number], [id number], 7238858 ####[facility] [address] [place], [place] [address]BVE/1.73 sq M predicted among non- blacks MDRD vol rate/area (S/P/Bld)mL/min/{1.73_m2}Normal>=59Firelands Regional Medical CenterComment on above:Order Comment: Order added by Discern Expert. Result Comment: Chronic kidney disease could be indicated at eGFR's of less than 60 mL/min/1.73m2. Kidney failure is indicated at less than 15 mL/min/1.73m2. Performed By: #### [id number], [id number], [id number] ####[facility] [address] [place], [place] [address]TL Note-Physicianon [id number] Note-PhysicianPatient: CARINA GOODEN Age: 22 years Sex: Female : 1995 Associated Diagnoses: None Author: Alf Uribe MD Basic Information Time seen: Date & time 06/13/17 18:44:00. Additional information: Chief Complaint from Nursing Triage Note : Chief Complaint 2016 18:38 EST Chief Complaint pt states sore [...] and not gastroesophageal reflux disease. Associated symptoms: deniesfever, denies chills, denies nausea, denies vomiting, denies cough and denies rhinorrhea. The degree at onset was moderate. The degree at present is moderate. Exacerbating factors: not coughing or exertion. Risk factors consist of not diabetes mellitus, not hypertension and not immunocompromised patient. 22-year-old female present ER with complaint of sore throat and painful urination has no diffi culty swallowing no deforming no neck pain no stiffnecked no sinus congestion no fever chills no rash no sick contacts is also complaining of painful frequent urination without hematuria without vaginal odor or discharges sexually activity.use of condoms symptoms is started a few days ago Review ofSystems Constitutional symptoms: no fever, no chills. Skin symptoms: no rash. Eye symptoms: Negative except as documented in HPI. ENMT symptoms: Sore throat, no ear pain, no sinus pain. Respiratory symptoms: no orthopnea, no cough. Cardiovascular symptoms: no chest pain. Gastrointestinal symptoms: no nausea, no vomiting, no diarrhea, no constipation. Genitourinary symptoms: Dysuria, no hematuria,no vaginal bleeding, no vaginal discharge. Musculoskeletal symptoms: no back pain, no Muscle pain. Neurologic symptoms: no headache. Health Status Allergies: Allergic Reactions (Selected)Severity NotDocumentedBee Stings- Swelling.. Immunizations: Up to date. Past Medical/ Family/ Social History Med ical history: No active or resolved past medical history items have been selected or recorded.. Surgical history: No active procedure history items have been selected or recorded.. Family history: Nofamily history items have been selected or recorded.. [...] pharyngeal erythema without exudates bilateral tympanic membranes arenormal. Respiratory: Lungs are clear to auscultation, respirations are non-labored. Cardiovascular:Regular rate and rhythm, Normal peripheral perfusion. Chest [...] pending. Orders Launch Orders Laboratory:U Beta Hcg Qual(Order): Urine, Stat collect, 06/13/2017 18:45 EST, Nurse [...] Trace UA Nitrite Negative UA Urobilinogen 0.2 EU/dLUA Leuk Est 1+ UA RBC 0-3 /HPF UA Squam Epithelial 0-2 /HPF UA WBC 16-25 /HPF UA Bacteria Trace /HPF UA Mucous 1+ U beta hCG Ql Negative . Impression and Plan Diagnosis Acute UTI ([id number]-ZJ N39.0, Discharge, Medical) Pharyngitis ([id number]-WF J02.9, Discharge, Medical) Plan Disposition: Discharged: Time06/13/17 19:35:00, to home. Prescriptions: Launch prescriptions Pharmacy:Keflex 500 mg Cap (Order):500 mg, Cap, Oral, Once, Stop date 06/13/2017 19:37 EST, STAT, Start date 06/13/2017 19:37 ESTKeflex 500 mg Cap (Prescribe): 500 = 1 mg cap(s), Oral, q6hr, X 7 day(s), # 28 cap(s), Refills(s) 0. Patient was given the following educational materials: Urinary Tract Infection, Zwmw-dr-Pwjf, Urinary Tract Infection, Muaz-nt-Gtxx, Upper Respiratory Infection, Adult, Upper Respiratory Infection, Adult,Urinary Tract Infection, Nyks-tl-Gzcs, Upper Respiratory Infection, Adult, Urinary Tract Infection,Rhtx-nz-Aqtl. Follow up with: XXXX NONE In 3 days 06/16/2017, XXXX NONE In 3 days 06/16/2017; Follow-up for [address] Atkinson in [facility] In 3 days 06/16/2017. Counseled: Patient, Family, Regarding diagnosis, Regarding diagnostic results, Regarding treatment plan, Regarding prescription, Patient indicated understanding of instructions.[facility] HospitalComment on above:Result Comment: Electronically Signed By: Rony GUZMAN, Alf\.br\Date and Time Signed: 07/11/17 22:56ESTC Strep Screenon 50-75-2404Tjpkaqd mass concMicrobiologyPROCEDURE: Strep Screen Culture [R1]SOURCE: Throat BODY SITE:COLLECTED DATE/TIME: 06/13/2017 19:06 EST RECEIVED DATE/TIME: 06/13/2017 19:29 ESTSTART DATE/TIME: 06/13/2017 19:29 EST FREE TEXT SOURCE:Robert Quinonez PA-C, PA-C, RobertFINAL REPORTSFinal Report [] Verified Date/Time: 06/15/2017 12:22 ESTNo Pathogenic Streptococcus IsolatedPerforming LocationsR1: This test was performed at: [facility], [address] [place] [address], [address] [phone]. Vincent HospitalComment on above:Performed By: #### [id number] ####[facility] [address] [place] [address]H Urineon [id number] identified Cx Nom (U) MicrobiologyPROCEDURE: Urine Culture [R1] U CleanCatch BODY SITE:COLLECTED DATE/TIME: 06/13/2017 18:57 EST RECEIVED DATE/TIME: 06/13/2017 19:22 ESTSTART DATE/TIME: 06/13/2017 19:22 EST FREE TEXT SOURCE:Robert Quinonez PA-C, PA-C, RobertFINAL REPORTSFinal Report [] Verified Date/Time: 06/15/2017 12:24 EST10,000 cfu/ml Escherichia coliSUSCEPTIBILITY RESULTS LEGEND: S=Susceptible, N/R=Not Reported, Blank=Data not available, or drug notadvisable or tested, I=Intermediate, ESBL=Extended spectrum beta-lactamase,R=Resistant, TFG=Thymidine-dependent strain, TERE=Beta- lactamase positive,SERG=mcg/m;(mg/L), S*=Predicted susceptible interp, R*=Predicted resistant interp ECAntibiotic SERG Dilutn SERG InterpAmikacin <=16 SAmoxicillin/ <=8/4 SClavulanateAmpicillin <=8 SAmpicillin/ <=8/4 SSulbactamCefazolin <=8 SCefepime <=4 SCefotaxime <=2SCeftazidime <=1 SCeftriaxone <=8 SCefuroxime <=4 SCiprofloxacin <=1 SErtapenem <=2 SGentamicin <=4 SImipenem <=1 SLevofloxacin <=2 SNitrofurantoin <=32 SPiperacillin/ <=16 STazobactamTetracycline <=4 STobramycin <=4 STrimethoprim/ <=2/38 SSulfaPerforming LocationsR1: This test was performed at: [facility], [address] [place] [address], [address]- , [phone]. Vincent HospitalComment on above:Performed By: #### [id number], [id number], [id number] ####[facility] [address] [place], [place] [address]Rdvtdr Summary.on 05-60-8387Icyblw Summary.CODING DATE: 06/15/2017 FINAL [facility] STATUS: Home (Routine DC) PAYOR: Self [...] Revised Coded By: Sofie Schaeffer Revised Date Saved:06/15/2017 04:56 pmNormal [facility] Clinical Summaryon [id number] Clinical Summary [address] [address] ED Clinical SummaryPerson Information Name: CARINA GOODEN/[facility]_Terry Age: 22Years : 1995 12:00 AM Sex: Female Language:Albanian PCP: NONE, XXXX Marital Status:Single Phone: Visit Id: Visit Reason:Urination painful; Throat pain [...] PM 06/13/2017 7:14 PM Urine Collect Complete 6:45 PM 06/13/2017 7:14 PM Reg Complete [...] Admin Complete 06/13/2017 7:37 PM 06/13/2017 7:41 PMDischarge Complete 06/13/2017 7:40 PM 06/13/2017 7:46 PM 06/13/2017 7:46 PM Transfer Complete 06/13/2017 7:46 PM 06/13/2017 7:46 PM 06/13/2017 7:46 PM ADDRESS:[address] [place] [address]SYZC DOC NOTES: MEDICAL INFORMATION: Prescriptions Given:Prescription Display cephalexin (Keflex 500 mg Cap) 500 mg = 1 cap(s), Oral, q6hr, X 7 day(s), # 28 cap(s), Refills(s) 0 Home Meds Display ethinyl estradiol- norgestimate (TriNessa oral tablet) Refill(s) 0 fluoxetine (FLUoxetine 10 mg Cap) Refills(s) 0 PATIENT EDUCATION INFORMATION: Instructions:Upper Respiratory Infection, Adult; Urinary Tract Infection, Rmzf-un-Teqo Follow up:With: Address: When: Follow-up for [address] Atkinson in [facility] In 3 days 06/16/2017 With: Address: When: XXXX NONE , [place] In 3 days 06/16/2017 D IAGNOSIS:Acute UTI; PharyngitisNormalFisher Friendship Medical CenterED Patient Education Noteon [id number] Patient Education NotePatient Education Materials Follows:Upper Respiratory Infection, AdultAn upper [...] can infect the tissues lining the upper r espiratory tract. The tissues become irritated and inflamed [...] include:? Runny nose.? Sneezing.? Nasal congestion.? Sinus irritation.?Sore throat.? Loss of voice (laryngitis).? Cough.? Fatigue.? Muscle aches.? Loss of appetite.? Heada lianna.? Low-grade fever.DIAGNOSISYou might diagnose your own cold [...] chronic obstructive pulmonary disease (COPD). Sometimes, these complicationscan require emergency medical care and may be life- threatening.PREVENTIONThe best way to protect against getting a cold is to practice good hygiene. Avoid oral or hand contact with people with cold sy mptoms. Wash your hands often if contact occurs. There is no clear evidence that vitamin C, vitaminE, echinacea, or exercise reduces the chance of [...] nutrition.? Getting plenty of rest.? Using gargles orlozenges for comfort.? Controlling fevers with ibuprofen or [...] other symptoms. HOME CARE INSTRUCTIONS? Only take nqht-ixo-auokrcd or prescription medicines for pain, discomfort, or [...] pain.? You develop wheezing, a prolonged cough, coughup blood, or have a change in your usual mucus (if you have chronic lung disease). ? You develop sore muscles or a stiff neck.Document Released: 12/29/2001 Document Revised: 09/26/2012 Document Reviewed: 10/10/2014ExitCare? Patient Information ?2015 [employer]. This information is not intended to replace advice given to you by your health care provider. Make sure you discuss any questions you have with your health care provider.Family MedicineUrinary Tract InfectionA urinary tract infection (UTI) can occur any place along the urinary tract. The tract includes the kidneys, ureters, bladder,and urethra. A type of germ called bacteria [...] Pee before and after having sex (intercourse).? Wipefrom front to back after you poop (bowel [...] not better in 3 days. MAKE SURE YOU:?Understand these instructions.? Will watch your condition.? Will get help right away if you are notdoing well or get worse.Document Released: 12/21/2008 Document Revised: 03/29/2013 Document Reviewed: 02/02/2013ExitCare? Patient Information ?2015 [employer]. This information is not intended to replace advice given to you by your health care provider. Make sure you discuss any questions you have with your health care provider.[facility] Patient Summaryon [id number] Patient Summary [place] [address] Patient Discharge Instructions Person Information Name: CARINA GOODEN Age: 22 Years Date: 06/13/2017 6:37 PMDischarge Diagnosis: Acute UTI; Pharyngitis Primary Care Physician: NONE, XXXX Provider InformationPrimary Provider: Rony GUZMAN, Costasicilaura Gathering Worker:None The exam and treatment you received in the Emergency Department were for an urgent problem and are not intended as complete care. It is important that you follow up with a doctor, nurse practitioner, or physician?s paraprofessional education assistant for ongoing care. If your symptoms become worse or you do not improve as expected and you are unable to reach your usual health care provider, you should return to the Emergency Department. We are available 24 hours a day. CARINA GOODEN has been given the following list of patient education materials, prescriptions and follow-up instructions: Follow -up Instructions:With: Address: When: Follow-up for [address] Atkinson in [facility] In 3 days 06/16/2017 With: Address: When: XXXX [facility] , [place] In 3 days 06/16/2017 In the event that this physician does not participate in your insurance network, please consult with your insurance company to find a nearby participating provider. Patient Education Materials:Upper Respiratory Infection, Adult; Urinary Tract Infection, Hcws-et-Qiqw Medications Given:Medication Dose Route cephalexin 500.00 mg Oral Medication Information:New MedicationsPrinted Prescriptionscephalexin (Keflex 500 mg Cap) 1 Capsules By Mouth every 6 hours for 7 Days. Refills: 0.Medications to Continue with No ChangesOther Medicationsethinyl estradiol-norgestimate (TriNessa oral tablet) fluoxetine (FLUoxetine 10 mg Cap) Comment: [facility] Information: [facility]: Upper Respiratory Infection, AdultAn upper [...] viruses can infect the tissues lining the upperrespiratory tract. The tissues become irritated and inflamed [...] can confirm this based on your exam. Mostimportantly, your caregiver can check that your symptoms [...] require emergency medical care and may be life- threatening.PREVENTIONThe best way to protect against getting a cold is to practice good hygiene. Avoid oral or hand contact with people with cold s ymptoms. Wash your hands often if contact occurs. [...] asthma.Zinc gel and zinc lozenges, taken in thefirst 24 hours of the common cold, can shorten the duration and lessen the severity of symptoms. Pain medicines may help with fever, muscle aches, and throat pain. A variety of non- prescription medicines are available to treat congestion and runny nose. Your caregiver can make recommendations and may suggest nasal or lung inhalers for other symptoms. HOME CARE INSTRUCTIONS? Only take htlb-ute-qjinhxc or prescription medicines for pain, discomfort, or fever as directed by your caregiver. ? Use awarm mist humidifier or inhale steam from a [...] yellow or brown nasal discharge or pain inthe face, especially when you bend forward. These [...] neck.Document Released: 12/29/2001 Document Revised: 09/26/2012 Document Revie wed: 10/10/2014ExitCare? Patient Information ?2014 [employer]. This information is not intended to replace advice given to you by your health care provider. Make sure you discuss any questions youhave with your health care provider.Urinary Tract InfectionA [...] after having sex (intercourse).? Wipe from front toback after you poop (bowel movement) if you [...] away if you are not doing well orget worse.Document Released: 12/21/2008 Document Revised: 03/29/2013 Document Reviewed: 02/02/2013ExitCare? Patient Information ?2014 [employer]. This information is not intended to replace advicegiven to you by your health care provider. Make sure you discuss any questions you have with your health care provider.GIACOMO Barrios ALICYN D , have received the following patient education materials/instructions and have verbalized understanding: Patient Education Materials: Upper Respiratory Infection, Adult; Urinary Tract Infection, Lrrb-pr-Hayc Follow-up Instructions: With: Address: When: Follow-up for [address] Atkinson in [facility] In 3 days 06/16/2017 With: Address: When: XXXX NONE , [place] In 3 days 06/16/2017 Prescriptions: [cephalexin (Keflex 500 mg Cap)] Patient Signature__ Date Clinician/Nurse Signature Date 06/13/17 19:46:34 NormalFirelands Regional Medical CenterU BetaHcg Qualon 91-21-0323PFC.beta subunit molar conc (U)NegativeNormalFirelands Regional Medical CenterComment on above: Performed By: #### [id number], [id number], [id number] ####[address] [address]GQ With Cult Reflexon 06-13-2017 Bacteria LM Ql (Urine sed)TRACENormalTraceFirelands Regional Medical CenterComment on above:Performed By: #### [id number], [id number], [id number] ####[address] [address]Abgyfobea Ql (U)NegativeNormal [facility] HospitalComment on above:Performed By: #### [id number], [id number], [id number] ####[address] [address]Kplwlhm Nom (U)CLEARNormalClearFirelands Regional Medical Center Comment on above:Performed By: #### [id number], [id number], [id number] ####[address] [address]Hvxex Auto Nom (U) STRAWAbnormalYellowFirelands Regional Medical CenterComment on above:Performed By: #### [id number], [id number], [id number] ####[address] [address]Kitnxeyvrv cells.squamous LM.HPF #/area (Urine sed) 2-4Wbdilu5-0Boxsis [facility] CenterComment on above:Performed By: #### [id number], [id number], [id number] ####[address] [address]Vkfrkhf Test strip mass conc (U)NegativeNormal NegativeFirelands Regional Medical CenterComment on above:Performed By: #### [id number], [id number], [id number] ####[address] [address]Hmvdjqcsml Test strip Ql (U)TRACEAbnormalNegativeFirelands Regional Medical CenterComment on above:Performed By: #### [id number], [id number], [id number] ####[address] [address]Cwztvvl mass conc (U)NegativeNormalNegHolzer Hospital Comment on above:Performed By: #### [id number], [id number], [id number] ####[address] [address] [place].plasma/[place].RBC mass ratio (Bld)3-8Hunrsy2-2TipabqHolzer Medical Center – JacksonComment on above:Performed By: #### [id number], [id number], [id number] ####[address] [address]Ifqnd LM Ql (Urine sed)1+NormalFirelands Regional Medical CenterComment on above:Performed By: #### [id number], [id number], [id number] ####[address] [address]Vsiapmf Test strip Ql (U)NegativeNormalNegative [facility] Medical CenterComment on above:Performed By: #### [id number], [id number], [id number] ####[address] [address]eF Test strip (U)5.5 [pH]Invalid Interpretation Code5.0-9.0 [facility] Medical CenterComment on above:Performed By: #### [id number], [id number], [id number] ####[address] [address]Mjscdss mass conc (U)NegativeNormalNegativeFirelands Regional Medical CenterComment on above:Performed By: #### [id number], [id number], [id number] ####[facility] [address] [place] [address] Specific gravity Relative Density (U)1.020Invalid Interpretation Code1.005-1.030 [facility] Regional Medical CenterComment on above:Performed By: #### [id number], [id number], [id number] ####[facility] [address] [place] [address]VC Spec DescClean CatchNormalFirelands Regional Medical Center Comment on above:Performed By: #### [id number], [id number], [id number] ####[facility] [address] [place] [address]Pxhsjjuufwnm Test strip Qn (U)0.2 {Krista'U}/dLNormal0.0-1.0Firelands Regional Medical CenterComment on above:Performed By: #### [id number], [id number], [id number] ####[facility] [address] [place] [address]LTL Auto Ql (U)1+Abnormal NegativeFirelands Regional Medical CenterComment on above:Performed By: #### [id number], [id number], [id number] ####[address] [address]RVI LM.HPF #/area (Urine sed)23-59Sbbinyxl0-0EwvtytHolzer Medical Center – JacksonComment on above:Performed By: #### [id number], [id number], [id number] ####[facility] [address] [place] [address] Vital Signs Date TimeVital SignValuePerforming OmusyadnaJzrorcsa34-80-9993 13:54-0400Body scaouq122.6 Sulybentley Cerna DO Work Phone: NOMY Sjwhryiull65-96-8787 13:54-0400Body mass index (BMI) [Ratio]24.17 kg/m7Vzrkadk Pekin DO Work Phone: [place] [address]Rcqrwgaiof20-67-5263 13:54-0400Body temperature 97.59 [degF]Katya Pekin DO Work Phone: [phone] [place] [address]-28-2025 13:54-0400Body .87 kgTimothy Pekin DO Work Phone: [phone] [place] [address]-28-2025 13:54-0400Diastolic blood qfaqaehz99 mm[Hg]Katya Pekin DO Work Phone: 1(659)605-[address] [place] [address]-28-2025 13:54-0400Heart rate73 /min Katya Pekin DO Work Phone: [phone])869-[address] [place] [address]-28-2025 13:54-4191MkF8% (BldA) [Mass fraction]97 %Katya Pekin DO Work Phone: 1([phone])559-[address] [place], [place] [address]Rydmehcvur33-23-1187 13:54-0400Systolic blood wgextcwq799 mm[Hg]Katya Pekin DO Work Phone: 1(388)001-[address] [place], [place] [address]Tfmgxpgjvi87-77-2556 09:34-0400Body mass index (BMI) [Ratio]24.55 kg/i1Rgzol Bipin DO Work Phone: [facility]Ciypnfmeor07-63-1878 09:34-0400Body otutup92.86 kgMckenziey Bipin DO Work Phone: [facility] HospitalFpyaqoiwdl75-18-6353 09:34-0400Diastolic blood vnsnevjd61 mm[Hg]Juan Bipin DO Work Phone: [place] [address]Qeedliosiu49-27-4517 09:34-0400Systolic blood uadeilsi172 mm[Hg]Juan Bipin DO Work Phone: [phone] [place], [place] [address]Gwyrvlgaoj12-55-7669 11:25-0400Body mass index (BMI) [Ratio]24.72 kg/c7EvzmoCarthage Area Hospital07-11-2025 11:25-0400Body weight 65.32 kg[place] [address]-11-2025 11:25-0400Diastolic blood fcijrree35 mm[Hg][facility]07-11-2025 11:25-0400Systolic blood lqcnckni010 mm[Hg][facility]06-17-2025 11:11-0400Body psanit628.6 cmCorey Bipin DO Work Phone: [facility] HospitalYmjjkcudln92-67-5002 11:11-0400Body mass index (BMI) [Ratio]25.4 kg/f6Pwuwx Bipin DO Work Phone: [phone] [place], [place] [address]Hcyqnrpzyq95-14-2744 11:11-0400Body .13 kgCorey Bipin DO Work Phone: [phone])[address] [place], [place] [address]30906-17-2025 11:11-0400Diastolic blood mm[Hg]Juan Bipin DO Work Phone: [phone])[facility] [place], [place] [address]Iubblrhczf60-96-0564 11:11-0400Systolic blood aypdzmxi246 mm[Hg]Juan Bipin DO Work Phone: [phone])[facility] [place], [place] [address]Qaiuclucdu75-57-5646 15:06-0500Body mass index (BMI) [Ratio]26.45 kg/j0Fkmhr Bipin DO Work Phone: 1(091)[facility] [place], [place] [address]Vhcgqtaqcg95-34-7829 15:06-0500Body mmcidq91.13 kgCorey Bipni DO Work Phone: 0(436)[facility] [place], [place] [address]Hmobzrtcwz61-23-3307 15:06-0500Diastolic blood mm[Hg]Juan Bipin DO Work Phone: 1(750)211-[address] [place], [place] [address]Wkusvzkzpt19-60-3739 15:06-0500Systolic blood ulxkpidx476 mm[Hg]Juan Bipin DO Work Phone: [phone])964-[address] [place], [place] [address]Heoidvylnp30-71-8432 11:50-0400Body wkdigr419.56 cmAPRN Katya Swartz Work Phone: [facility]03-31-2024 11:50-0400 Body ygqthquhrwq22.9 [degF]VETERINARIAN Katya Swartz Work Phone: [facility]03-31-2024 11:50-0400 Body uokrjk51.1 kgAPRAshley Swartz Work Phone: [facility]03-31-2024 11:50-0400 Diastolic blood oawgbanv74 mm[Hg]HAWA Swartz Work Phone: [facility]03-31-2024 11:50-0400 Heart rate91 /minAPRAshley Swartz Work Phone: 1([phone])187-[address] [place], [place] [address]03-31-2024 11:50-0400 Respiratory rate16 /minAPRAshley Swartz Work Phone: [phone]03-31-2024 11:50-0400 SaO2% (BldA) [Mass fraction]97 %HAWA Swartz Work Phone: [facility]03-31-2024 11:50-0400 Systolic blood dbshuqxq072 mm[Hg]HAWA Swartz Work Phone: [facility] Encounters Encounter DateEncounter TypeCare ProviderFacilityStart: 04-24-2025 End: 92-79-1468lljrtrszjfOROQNKH CUTLERNot AvailableStart: 04-17-2025 End: 07-21-6145Dflcfouyv encounterTimothy L Pekin DO Work Phone: [facility] 230Start: 04-09-2025 End: 33-33-6215Zykxwfmjb encounterTimothy L Pekin DO Work Phone: noms [facility] 230Start: 03-22-2025 End: 18-39-6179Hxjcxv-up encounterTimothy L Pekin DO Work Phone: N[facility] 230Comment on above: Tsh+free t4, Thyroid peroxidase and thyroglobulin antibodiesStart: 03-21-2025 End: 06-88-6902awhlppcekbVIZZU FAZIONot AvailableStart: 03-21-2025 End: 35-11-2018Rddocy digital e/m svc est pt <7 d 5-10 minutesCorey Bipin DO Work Phone: noms [facility] OBGYNComment on above:Spontaneous miscarriage (HHS-HCC)Start: 03-15-2025 End: 26-49-2953Kofehp flowsheetTimothy L Pekin DO Work Phone: NOVH [facility] 230Start: 03-15-2025 End: 93-04-2950Uaqfqy flowsheetTimothy L Pekin DO Work Phone: noms [facility] 230Start: 03-15-2025 End: 25-12-7545Fzeipl outpatient visit 15 minutesTimothy L Pekin DO Work Phone: noms [facility] 230Comment on above: Moderate episode of recurrent major depressive disorder (HCC) (Primary Dx); Generalized anxiety disorderStart: 03-15-2025 End: 14-78-4995pjdtoyqeygODHPYZY L CUTLERNot AvailableStart: 03-01-2025 End: 47-69-6204Tzhmiczdw Result EncounterCorey Bipin DO Work Phone: noms External Department UnsolicitedStart: 03-01-2025 End: 29-67-1515Smohxdopl Result EncounterCorey Bipin DO Work Phone: noms External Department UnsolicitedStart: 03-01-2025 End: 44-51-0610okmfjjuqcgDmjmhbo M Hoy MD Work Phone: [facility] Work Phone: Start: 03-01-2025 End: 08-82-8314Yfgbutug ReferredCorey Bipin-LAB Path Spec [facility] HospStart: 02-27-2025 End: 88-12-9337Hgnfvu flowsheetCorey Bipin DO Work Phone: noms [facility]BGYNStart: 02-27-2025 End: 34-22-0876Sniicn flowsheetCorey Bipin DO Work Phone: [facility]oms [place] OBGYNStart: 49-81-4571kwmbhjtlthXDQWLBI CUTLERNot AvailableStart: 02-27-2025 End: 21-61-0526Mzphswtw flow sheetCorey Bipin DO Work Phone: noms [place] OBGYNComment on above:12 weeks gestation of ([facility]-HCC); First trimester ([facility]); Threatened miscarriage in early ([facility]-HCC)Start: 02-27-2025 End: 28-15-9164nydgpzytjhHXJHV FAZIONot AvailableStart: 02-02-2025 End: 63-91-4389Bxhshvwxf Result EncounterCorey Bipin DO Work Phone: noms External Department UnsolicitedStart: 02-02-2025 End: 74-64-3315Ouolbqdpc Result EncounterCorey Bipin DO Work Phone: noms External Department UnsolicitedStart: 01-26-2025 End: 08-37-9858Dzborz outpatient visit 5 minutesFazio Nurse Noms Bcp ObNOMS BCP OBComment on above:GA: 2e0kSbozw: 01-26-2025 End: 56-39-6076rvdpnylzltGMZNMMA CUTLERNot AvailableStart: 01-10-2025 End: 00-95-7323kwwsukbkxsRCLZPVS CUTLERNot AvailableStart: 01-08-2025 End: 19-46-3726Lkwauqnco Result EncounterCorey Bipin DO Work Phone: noms External Department UnsolicitedStart: 01-08-2025 End: 05-17-7744Nyphqncwe Result EncounterCorey Bipin DO Work Phone: noms External Department UnsolicitedStart: 01-06-2025 End: 82-27-1051Majnepqfw Result EncounterCorey Bipin DO Work Phone: noms External Department UnsolicitedStart: 01-06-2025 End: 40-78-0654Rinqxloca Result EncounterCorey Bipin DO Work Phone: NOM[facility] External Department UnsolicitedStart: 01-02-2025 End: 19-42-9354Frjwss flowsheetCorey Bipin DO Work Phone: [facility] BCP OBStart: 01-02-2025 End: 96-66-7094Ixzpnd flowsheetCorey Bipin DO Work Phone: [facility] BCP OBStart: 01-02-2025 End: 81-44-6728dmgmjjytbxMKFFB FAZIONot AvailableStart: 01-02-2025 End: 94-17-4899Dxkrnf outpatient visit 15 minutesCorey Bipin DO Work Phone: [facility] BCP OBComment on above:Miscarriage (HHS-HCC) Start: 11-27-2024 End: 42-36-2179Tkzkvhtsd Result EncounterCorey Bipin DO Work Phone: [facility] External Department UnsolicitedStart: 11-27-2024 End: 08-47-1836Fhcpabpcj Result EncounterCorey Bipin DO Work Phone: NOMS External Department UnsolicitedStart: 11-24-2024 End: 85-56-8109Aqfutuqnc Result EncounterCorey Bipin DO Work Phone: NOMS External Department UnsolicitedStart: 11-24-2024 End: 73-79-0239Aygphhjkh Result EncounterCorey Bipin DO Work Phone: NOM[facility] External Department UnsolicitedStart: 11-22-2024 End: 92-98-3338Zultlvqkm Result EncounterCorey Bipin DO Work Phone: NOMS External Department UnsolicitedStart: 11-22-2024 End: 67-84-0952Kdvhuuivm Result EncounterCorey Bipin DO Work Phone: NOMS External Department UnsolicitedStart: 08-28-2024 End: 02-02-9925Ejoluomvb Result EncounterCorey Bipin DO Work Phone: NOMS External Department UnsolicitedStart: 08-28-2024 End: 26-18-1829Uvvudxono Result EncounterCorey Bipin DO Work Phone: noMS External Department UnsolicitedStart: 08-22-2024 End: 88-59-5460Yoawzr outpatient visit 15 minutesCorey Bipin DO Work Phone: noms [facility] OBComment on above:Encounter for fertility planning; PCOS (polycystic ovarian syndrome); Hormone imbalanceStart: 08-22-2024 End: 33-20-2489Eodapu flowsheetCorey Bipin DO Work Phone: noms [facility] OBStart: 08-22-2024 End: 94-49-1354Anbxgw flowsheetCorey Bipin DO Work Phone: noms [facility] OBStart: 08-22-2024 End: 68-02-0382cfuxhbdpwtYWJOX FAZIONot AvailableStart: 10-17-2023 End: 99-25-5324Ytfyquayz department patient visitAPRAshley Swartz Work Phone: [facility] Work Phone: Start: 05-06-2022 End: 05-02-8074myxhsmqikmLR Katya Cerna Work Phone: [facility] Work Phone: Start: 05-06-2022 End: 25-23-8447Oadjess encounter procedureDO Katya Cerna Work Phone: [facility] CampusStart: 02-26-2020 End: 41-42-5984Cgfkaco encounter procedureKIM FRANKIRATILFacility:A3Jbvmm: 02-02-2018 End: 15-62-1317Kflewkf encounterJohn KovesdiFacility:CD:[id number]: 01-28-2018 End: 38-32-6202Gzmtfwr encounterJohn KovesdiFacility:CD:[id number]: 09-10-2017 End: 21-62-3846Xfbqqpuek department patient visitXXXX NONEFacility:FTMCStart: 06-13-2017 End: 41-22-6243Injosgiou department patient visitXXXX NONEFacility:[facility] Procedures DateProcedureProcedure DetailPerforming ClinicianStart: 92-26-0865Isakk of free thyroxineTimothy L Pekin DO Work Phone: Start: 15-23-8271Ukfgfneklt antibodies eachTimothy L Pekin DO Work Phone: Start: 53-35-4345Ns uterus limited 1/> fetusesCorey Bipin DO Work Phone: Start: 46-05-5059QET CBC WITH AUTO DIFFCorey Bipin DO Work Phone: Start: 03-23-4776Nb preg uterus real time w/image dcmtn transvagCorey Bipin DO Work Phone: Start: 63-60-5932Qzftk dip stick/tablet rgnt non-auto w/o micrscpCorey Bipin DO Work Phone: Start: 04-17-4252GBI TESTCorey Bipin DO Work Phone: Start: 58-88-5245Yvjgf dip stick/tablet rgnt non-auto w/o micrscpCorey Bipin DO Work Phone: Start: 63-17-8410HXP PREG QUANT HCGCorey Bipin DO Work Phone: Start: 52-45-2811LJO PREG QUANT HCGCorey Bipin DO Work Phone: Start: 17-51-5953Hukgi dip stick/tablet rgnt non-auto w/o micrscpCorey Bipin DO Work Phone: Start: 70-18-7972UNB PREG QUANT HCGCorey Bipin DO Work Phone: Start: 42-19-1473EDE PREG QUANT HCGCorey Bipin DO Work Phone: Start: 64-70-8633SA OB TRANSVAGINALCorey Bipin DO Work Phone: Start: 63-44-2064HKA PREG QUANT HCGCorey Bipin DO Work Phone: Start: 87-40-3699Hpxyilokczsrq pyogenes antigen assay VETERINARIAN Katya Swartz Work Phone: Plan of Treatment DateCare ActivityDetailAuthorStart: 04-18-2025 End: 42-21-8160Rjwfvil encounter myfbapdwp21/01/2025 5:20 PM EDT Office Visit [facility] [address] [place] [address] Katya Cerna, DO [address] [place] [address] [facility] access hospital 230 Start: 09-71-8094Oblaqxjle vaccinationInfluenza Vaccine (#1)[facility] Start: 03-15-2025 End: 27-97-7002Rijsmyi encounter wnyxpwzfw14/28/2025 2:00 PM EDT Office Visit [facility] [address] [place] [address] Katya Cerna, DO [address] [place] [address] [facility] 230Comment on above:ArrivedStart: 02-27-2025 End: 28-08-7196Mnedjfj encounter procedureNOMS BCP OBComment on above:Arrived Start: 01-26-2025 End: 93-45-5994KOI/RhABO/Rh Lab Routine Missed menses , unspecified gestational age ([facility]) Expected: 01/26/2025 (Approximate), Expires: 01/26/2026N[facility] HealthcareComment on above:Expected: 01/26/2025 (Approximate), Expires: 01/26/2026Start: 01-26-2025 End: 99-13-0182Qwple type and Indirect antibody screen panel - BloodType and screen Lab Routine Missed menses , unspecified gestational age ([facility]) Expected: 01/26/2025 (Approximate), Expires: 01/26/2026[facility] Work Phone: comment on above:Expected: 01/26/2025 (Approximate), Expires: 01/26/2026Start: 01-26-2025 End: 27-78-9789Jubcg of abuse panel - Urine by Screen methodRapid drug screen, urine Lab Routine , unspecified gestational age ([facility]) Encounter for supervision of normal first in first trimester ([facility]) Expected: 01/26/2025 (Approximate), Expires: 01/26/2026N[facility] HealthcareComment on above: Expected: 01/26/2025 (Approximate), Expires: 01/26/2026Start: 12-08-2024 End: 89-03-3440kephmijdtp46/23/2025 10:00 AM EDT Initial [facility] [place] [address] [place] [address] [phone] BCP OBStart: 12-08-2024 End: 49-72-6162Bcamnsjlvzws / ancillary services qcixuhreub53/23/2025 9:30 AM EDT Ancillary Procedure [facility] [place] [address] [place] [address] [phone] [facility] OBStart: 08-22-2024 End: 94-32-1039Nsyjaxz encounter jytfmtihd51/04/2025 2:10 PM EST Office Visit [facility] [place] [address] [place] [address] Juan Voss, DO [facility] [address], [place] [address] ArrivedPARNASSUS CAMPUS OBComment on above:ArrivedStart: 08-22-2024 End: 68-11-7991PIBNCXKI Lab Routine PCOS (polycystic ovarian syndrome) Expected: 08/22/2024 (Approximate), Expires: 08/22/2025NOMI HealthcareComment on above: Expected: 08/22/2024 (Approximate), Expires: 08/22/2025Start: 10-17-2023 SARS-CoV-2, Influenza & RSV (PCR)SARS-CoV-2, Influenza & RSV (PCR)[facility]: 59-19-0858NxbncwsurFostoria City Hospital Bacteria identified in Urine by CultureUrine culture Microbiology Routine Missed menses Ordered: 01/26/2025[facility] HealthcareComment on above:Ordered: 01/26/2025 CBC W Auto Differential panel - BloodCBC and differential Lab Routine PCOS (polycystic ovarian syndrome) Ordered: 08/22/2024[facility] HealthcareComment on above:Ordered: 08/22/2024BC W Auto Differential panel - BloodCBC and differential Lab Routine Missed menses , unspecified gestational age ([facility]) Ordered: 01/26/2025[facility] HealthcareComment on above:Ordered: 01/26/2025 TAGL-yigkbwbSAKX-pnfuvvx Lab Routine PCOS (polycystic ovarian syndrome) Ordered: 08/22/2024[facility] HealthcareComment on above:Ordered: 08/22/2024Follicle stimulating hormoneFollicle stimulating hormone Lab Routine PCOS (polycystic ovarian syndrome) Ordered: 08/22/2024[facility] HealthcareComment on above:Ordered: 08/22/2024hCG, quantitative, pregnancyhCG, quantitative, Lab Routine PCOS (polycystic ovarian syndrome) Ordered: 08/22/2024[facility] Work Phone: comment on above:Ordered: 08/22/2024Hemoglobin A1c/Hemoglobin.total in BloodHemoglobin A1c Lab Routine Hormone imbalance Ordered: 08/22/2024[facility] HealthcareComment on above:Ordered: 08/22/2024Hemoglobin A1c/Hemoglobin.total in BloodHemoglobin A1c Lab Routine Missed menses , unspecified gestational age ([facility]) Ordered: 01/26/2025[facility] HealthcareComment on above:Ordered: 01/26/2025Hepatitis B virus surface Ag [Presence] in Serum or Plasma by ImmunoassayHepatitis B surface antigen Lab Routine Missed menses , unspecified gestational age ([facility]) Ordered: 01/26/2025[facility] HealthcareComment on above:Ordered: 01/26/2025Hepatitis C virus Ab [Presence] in Serum or Plasma by ImmunoassayHepatitis C antibody Lab Routine Missed menses , unspecified gestational age ([facility]) Ordered: 01/26/2025[facility] HealthcareComment on above:Ordered: 01/26/2025HIV-1/HIV-2 antigen/antibody combination immunoassayHIV-1 and HIV-2 antibodies Lab Routine Missed menses , unspecified gestational age ([facility]) Ordered: 01/26/2025[facility] HealthcareComment on above:Ordered: 01/26/2025Luteinizing hormone Luteinizing hormone Lab Routine PCOS (polycystic ovarian syndrome) Ordered: 08/22/2024[facility] HealthcareComment on above:Ordered: 08/22/2024Patient Education Strep Throat (DC)[facility] Work Phone: Patient referralFayette County Memorial Hospital Ctr Work Phone: ProgesteroneProgesterone Lab Routine Hormone imbalance Ordered: 08/22/2024[facility] HealthcareComment on above:Ordered: 08/22/2024Reagin Ab [Presence] in Serum by RPRRPR Lab Routine Missed menses , unspecified gestational age ([facility]) Ordered: 01/26/2025[facility] HealthcareComment on above: Ordered: 01/26/2025Rubella antibody, IgGRubella antibody, IgG Lab Routine Missed menses , unspecified gestational age ([facility]) Ordered: 01/26/2025[facility] HealthcareComment on above:Ordered: 01/26/2025Thyrotropin [Units/volume] in Serum or PlasmaTSH Lab Routine PCOS (polycystic ovarian syndrome) Ordered: 08/22/2024[facility] HealthcareComment on above:Ordered: 08/22/2024Thyroxine (T4) free [Mass/volume] in Serum or PlasmaT4, free Lab Routine PCOS (polycystic ovarian syndrome) Ordered: 08/22/2024[facility] HealthcareComment on above:Ordered: 08/22/2024 Immunizations Immunization DateImmunizationNotesCare IirctsygAqiqtltp98-25-5762ubrfwovze virus vaccine, unspecified formulationCorey Bipin DO Work Phone: [facility] Payers DatePayer CategoryPayerPolicy [id number] Member Subscriber Plan / Payer (Effective 2025-Present) Name: Carina Baker Relation to Subscriber: Spouse Name: Soniya Baker Date ofBirth: 1991 (Work) Address: [address] [place] [address] [place] [address] Payer ID: Not on file Type: Not on file Address: [address] [place] [id number] [id number] Health InsuranceUNCOMM[facility] [id number] .1.554243.3.57[id number] .1.762820.3.57[id number] .1.625072.3.57[id number] 2.16.840.1.243301.3.57[id number] 2.16.840.1.394118.3.57[id number] 2..0.1.464813.3.57[id number] 2.16.840.1.625216.3.57[id number] 2.16.840.1.218874.3.57[id number] 2..0.1.961544.3.57[id number] 2.0.1.864376.3.57[id number] 2..840.1.740565.3.57[id number] Health Insurance [facility] Health [id number] /[id number] 2.0.1.063317.3.579.2.531 Social History DateTypeDetailFacilityTobacco smoking status NHISUnknown if ever smokedLima Memorial Hospital Work Phone: Start: 47-69-5148Gsr Assigned At BirthFeGrant Hospitaltart: 10-17-2023 End: 14-59-3988Jrqqiey smoking status NHISNever smoked tobacco (finding) [facility]: 07-13-2023 End: 00-93-6314Kncxzhuuf beverage intakeCurrent drinker of alcohol (finding)[facility] HospitalStart: 07-08-2023 End: 60-27-3037Lyhyxfd of Social functionPRIMARY CHILDREN'S HOSPITAL HealthcareStart: 07-08-2023 End: 38-06-6053Rjjqtmi Use Disorder Identification Test - Consumption [AUDIT-C] [facility] HealthcareHow often to you have a drink containing alcohol?NeverNOMS HealthcareHow many standard drinks containing alcohol do you have on a typical day?1 or 2N[facility]S HealthcareHow often do you have 6 or more drinks on 1 occasion? Less than monthlyEastern Missouri State HospitalStart: 99-22-7310Nbptedt CommentAlcohol: 6 or more drinks / less than monthly; 1 or 2 drinks on typical day. Caffeine: occasionalNOMI HealthcareStart: 56-30-1243Fpa assigned at birthNot on fileNOI-70 Community HospitalStart: 90-27-7857Vsqspg identityIdentifies as female gender (finding) [facility] HospitalStart: 15-09-6113YfbendokuVNJJ HealthcareSexFemale (finding) [facility]tart: 32-03-3678Uzogpbn use and exposure Smokeless tobacco non-userPRIMARY CHILDREN'S HOSPITAL HealthcareNEGATED: Highlighted row [facility] Functional Status BdnlEdzonyzlikVzqqrgYoteoktp71-01-2339Ritxrvm Health Questionnaire 2 item (PHQ- 2) [Reported][facility] Clinical Notes 08-22-2024 to 04-17-2025 Note Date & KiaeHhywQlqlwbvm00-61-4865 Telephone encounter Note* Telephone Encounter - Katya Cerna DO - 04/17/2025 1:02 PM EDT Noted [facility] HospitalMnlptvrvwg77-35-1303 Miscellaneous Notes* Telephone Encounter - Katya Cerna DO - 04/17/2025 1:02 PM EDT Noted * Telephone Encounter - Susan Cruz - 04/17/2025 12:07 PM EDT Pt canceled tomorrow's visit regarding 1 mo follow up. It was to go over anxiety medication she hadstarted. She stopped the medication and stated it was situational anxiety and she could handle thaton its own. But if she still needs to be seen give her a call and appt can be rescheduled. documented in this encounterEastern Missouri State HospitalLlgeamywbw31-10-5218 Telephone encounter Note* Telephone Encounter - Susan Cruz - 04/17/2025 12:07 PM EDT Pt canceled tomorrow's visit regarding 1 mo follow up. It was to go over anxiety medication she hadstarted. She stopped the medication and stated it was situational anxiety and she could handle thaton its own. But if she still needs to be seen give her a call and appt can be rescheduled. [facility] HospitalTomnuwjqox33-25-5883 Telephone encounter Note* Telephone Encounter - Katya L DO Nehemiah - 04/09/2025 3:39 PM EDT Let pt know her thyroid scan showed borderline increased uptake on one side of the thyroid, the radiologist recommended correlating with thyroid function studies which were all WNL. At this point, nothing is wrong with her thyroid and she does not require any treatment. That doesn't mean that in the future she won't develop Nehemias's and have abnormal thyroid function. We can continue monitoring moving forward. [facility] HospitalHtmbsavtay37-68-4732 Miscellaneous Notes* Telephone Encounter - Katya L DO Nehemiah - 04/09/2025 3:39 PM EDT Let pt know her thyroid scan showed borderline increased uptake on one side of the thyroid, the radiologist recommended correlating with thyroid function studies which were all WNL. At this point, nothing is wrong with her thyroid and she does not require any treatment. That doesn't mean that in the future she won't develop Nehemias's and have abnormal thyroid function. We can continue monitoring moving forward. documented in this encounterEastern Missouri State HospitalVjpevcanin17-97-6994 Telephone encounter Note* Telephone Encounter - Helenjn Funes - 04/06/2025 2:11 PM EDT Patient called to let Dr. Cerna know that she did the thyroid scan. She started yesterday and finished today. She says they haven't received the results as of just yet, but they are waiting for radiology to review the scan. She says they are aware that Dr. Cerna is now her primary care. [facility] Gvguvqgksd03-90-4760 Miscellaneous Notes* Telephone Encounter - Helen Funes - 04/06/2025 2:11 PM EDT Patient called to let Dr. Cerna know that she did the thyroid scan. She started yesterday and finished today. She says they haven't received the results as of just yet, but they are waiting for radiology to review the scan. She says they are aware that Dr. Cerna is now her primary care. documented in this [facility]09-03-2025 History of Present illness Narrative* Ana Cristina Romero LPN - 03/21/2025 8:00 AM EDT Reason for Appointment: Patient ID: Carina Baker is a 30 y.o. female who presents for No chief complaint on file. Patient presents today via telephone call for a telehealth appointment. Patients Phone #: [phone] (mobile) Date: 03/21/2025 Time: 11:08 AM of [...] difficile colitis 2013 demise due to miscarriage ([facility]) 03/01/2025 History of medical problems Family History [...] Assessment/Plan Encounter Diagnosis Name Primary? Spontaneous miscarriage ([facility]) Pt had miscarriage and delivered fetus on [...] of: Juan Voss DO documented in this encounterEastern Missouri State HospitalTbkotcorex38-56-1862 History of Present illness Narrative* Katya Cerna DO - 03/15/2025 2:00 PM EDT Images from the original note were not included. [facility] MARCUS Camacho SUBJECTIVE: HPI: Carina Baker is a 29 y.o. female who presents with chief complaint of New Patient Pt presents to become established. Prior PCP was Dr Mane. Pt would like to discuss her anxiety and how this has increased. Pt is also requesting a thyroid scan to check her thyroid. She states that her mother has thyroid problems and nothing ever showed in her blood work but did show up in a scan. I have reviewed and reconciled the history and medication list with the patient today. Depression: At risk (03/15/2025) PHQ-2 PHQ-2 Score: 3 reports that she has never smoked. She has never used smokeless tobacco. She reports current alcohol use. She reports that she does not use drugs. OBJECTIVE: 05/10/2023 11:35 AM 07/13/2023 1:31 PM 08/22/2024 3:06 PM 01/02/2025 11:11 AM 01/26/2025 11:25 AM 02/27/2025 9:34 AM 03/15/2025 1:54 PM Vitals BMI 30.3 kg/m2 27.03 kg/m2 26.45 kg/m2 25.4 kg/m2 24.72 kg/m2 24.55 kg/m2 24.17 kg/m2 BSA (m2) 1.82 m2 1.72 m2 1.7 m2 1.74 m2 1.72 m2 1.71 m2 1.7 m2 Systolic 120 114 118 110 110 118 110 Diastolic 70 68 60 70 70 70 74 Heart Rate 73 SpO2 97 % Temp 97.6 F Height (in) 5' 4 5' 4 Weight (lb) 167 149 145.8 148 144 143 140.8 Visit Report Report Report Report Physical Exam Constitutional: General: She is not in acute distress. Appearance: She is not ill-appearing. HENT: Head: Normocephalic. Cardiovascular: Rate and Rhythm: Normal rate and regular rhythm. Heart sounds: No murmur heard. Pulmonary: Effort: Pulmonary effort is normal. Breath sounds: Normal breath sounds. No wheezing. Abdominal: General: Abdomen is flat. There is no distension. Tenderness: There is no abdominal tenderness. Musculoskeletal: General: No deformity. Normal range of motion. Cervical back: Normal range of motion. Skin: General: Skin is warm and dry. Neurological: General: No focal deficit present. Mental Status: She is alert and oriented to person, place, and time. Psychiatric: Mood and Affect: Mood normal. Behavior: Behavior normal. Thought Content: Thought content normal. Judgment: Judgment normal. Recent Results (from the past 4 weeks) Tsh+free t4 Collection Time: 03/20/25 4:37 PM Result Value Ref Range TSH 1.450 0.450 - 4.500 uIU/mL T4Free(Direct) 0.99 0.82 - 1.77 ng/dL Thyroid peroxidase and thyroglobulin antibodies Collection Time: 03/20/25 4:37 PM Result Value Ref Range THYROID PEROXIDASE (TPO) AB 21 0 - 34 IU/mL THYROGLOBULIN ANTIBODY <1.0 0.0 - 0.9 IU/mL ASSESSMENT AND PLAN: Assessment/Plan Diagnoses and all orders for this visit: Moderate episode of recurrent major depressive disorder (HCC) - Tsh+free t4; Future - Thyroid peroxidase and thyroglobulin antibodies; Future Generalized anxiety disorder - Tsh+free t4; Future - Thyroid peroxidase and thyroglobulin antibodies; Future Discussed thyroid function testing with abs Call with results. Katya Cerna DO Patient Active Problem List Diagnosis Moderate episode of recurrent major depressive disorder (HCC) Mild episode of recurrent major depressive disorder Anxiety disorder Past Medical History: Diagnosis Date Anxiety with depression C. difficile colitis 2014 demise due to miscarriage ([facility]) 03/01/2025 delivered @ 12 wks 6 days Ganglion cyst 03/15/2025 History of medical problems sensitive stomach Subacute vaginitis 03/15/2025 Vaginal high risk human papillomavirus (HPV) DNA test positive 03/15/2025 documented in this encounterEastern Missouri State HospitalNuegrgvxqq76-41-6510 History of Present illness Narrative* Ana Cristina Romero, RETAIL BEAUTY SPECIALIST - 02/27/2025 9:20 AM EDT Reason for Appointment: Patient ID: Carina Baker [...] nursing note reviewed. Exam conducted with a campus coordinator present. Vitals: Estimated body mass index is 24.55 kg/m as calculated from the following: Height as of 01/02/25: 5' 4 . Weight as of this encounter: 143 lb. BP: 118/70 No LMP recorded (lmp unknown). Patient is . ASSESSMENT & PLAN ICD-10-CM 1. 12 weeks gestation of ([facility]) Z3A.12 POCT urinalysis dipstick manually resulted 2. First trimester ([facility]) Z34.91 POCT urinalysis dipstick manually resulted [...] of: Juan Voss DO documented in this encounterEastern Missouri State HospitalPrwuwkrvfg73-65-5406 History of Present illness Narrative* Raysa Sheikh MA - 01/26/2025 10:30 AM EDT Reason for Appointment: Patient ID: Carina Baker [...] dipstick manually resulted , unspecified gestational age ([facility]) - Type and screen; Future - ABO/Rh; Future - CBC and differential - Hemoglobin A1c - RPR - Rubella antibody, IgG - Hepatitis B surface antigen - Hepatitis C antibody - HIV-1 and HIV-2 antibodies - Rapid drug screen, urine; Future Encounter for supervision of normal first in first trimester ([facility]) - Rapid drug screen, urine; Future 8 weeks gestation of ([facility]) H/O hypotension Nurse Note: Pt desires [place] billion to one. Pt was advised to [...] meat, [facility]. Patient has also been advised to [...] by: Raysa Sheikh MA documented in this encounterEastern Missouri State HospitalLxtliqycvs34-53-0872 History of Present illness Narrative* Ana Cristina Romero LPN - 01/02/2025 10:50 AM EDT Reason for Appointment: Patient ID: Carina Baker [...] nursing note reviewed. Exam conducted with a campus coordinator present. Vitals: Estimated body mass index is 25.4 kg/m as calculated from the following: Height as of this encounter: 5' 4 . Weight as of this encounter: 148 lb. BP: 110/70 No LMP recorded (lmp unknown). ASSESSMENT & PLAN ICD-10-CM 1. Miscarriage ([facility]) O03.9 POCT urinalysis dipstick manually resulted Patient presents today to follow up after a recent miscarriage. I have discussed HCG lab levels andmiscarriage with patient in detail. Patient has been advised to wait a full cycle until trying to conceive again, patient voiced understanding, and will call when so office can call in progesterone suppositories. Follow Up: As needed Documented by Ana Cristina Romero LPN on behalf of: Juan Voss DO documented in this encounterEastern Missouri State HospitalRrkaqdcawz70-75-9836 History of Present illness Narrative* Ana Cristina Romero LPN - 08/22/2024 2:10 PM EST Reason for Appointment: Patient ID: Carina Baker [...] ASCUS, HPV pos WISDOM TOOTH EXTRACTION 2015 REVIEW OF SYSTEMS Review of Systems: Review [...] nursing note reviewed. Exam conducted with a campus coordinator present. Vitals: Estimated body mass index is [...] of: Juan Voss DO documented in this encounterNOMS HealthcareEvaluation noteNo assessment information availableFayette County Memorial Hospital Ctr Work Phone: Evaluation note* Diagnosis Encounter for fertility planning PCOS (polycystic ovarian syndrome) Polycystic ovaries Hormone imbalance documented in this encounter [facility] HealthcareEvaluation note* Diagnosis Miscarriage ([facility]) Unspecified spontaneous without mention of complication documented [...] miscarriage ([facility]) documented in this encounter [facility] HealthcareEvaluation note* Diagnosis Moderate episode of recurrent major depressive disorder (HCC)- Primary Generalized anxiety disorder documented in this encounter [facility] HealthcareReason for referral (narrative)No reason for referral information availableFayette County Memorial Hospital Ctr Work Phone: Summary Purpose Family History No Family History Records Found Relationship Condition Age at Onset Recorded Date/T ila father Hypertension Unknown Family history of mental disorderUnknownDiabetes mellitusUnknownNot Specified HypertensionUnknownMalignant neoplasmUnknown Relationship Condition Age at Onset Recorded Date/T ila father Hypertension Unknown Family history of mental disorderUnknownDiabetes mellitusUnknownmother HypertensionUnknownMalignant neoplasmUnknown Advance Directives No Advanced Directives Records Found Advance Directive Response Recorded Date/ Time Advance Directives No June 24, 2020 11:43am Chief Complaint and Reason for Visit Chief Complaint Z00.00 Z13.6 Chief Complaint fever, sore throat , chills Chief Complaint Admit Date Unknown March 01, 2025 1: 15pm Additional Source Comments INFORMATION SOURCE (unrecogn ized section and content) DATE CREATED AUTHOR 02/16/2018 [facility] DATE CREATED AUTHOR AUTHOR'S ORGANIZ ATION 03/06/2020 [facility] DATE CREATED AUTHOR AUTHOR'S ORGANIZ ATION 03/08/2025 [facility] DATE CREATED AUTHOR AUTHOR'S ORGANIZ ATION 04/27/2025 [facility] EPIC Care Teams (unrecognized sec tion and content) Team Status: Inactive Member Role Status Dates Katya Cerna DO Primary Care Provider, Attending Provider Active Team Status: Active Member Role Status Dates Katya Cerna DO Primary Care Provider Active Team Status: Active Member Role Status Leonardo Garcia MD Primary Care Provider Active Team Status: Inactive Member Role Status Dates Katya Swartz APRN Emergency Provider Active Start: October 17, 2023 End: October 16Mame Vann Care ProviderActiveStart: October 17, 2023 End: October 17, 2023Team MemberRelationshipSpecialtyStart DateEnd Date Gregorio Garcia MD [address] [place] [address] [facility]/23Team MemberRelationshipSpecialtyStart DateEnd Date Gregorio Garcia MD [address] [place] [address] PCP - [facility]10/18/23Team MemberRelationshipSpecialtyStart DateEnd Date Gregorio Garcia MD [address] [place] [place] [address] PCP - [facility]10/18/23Team MemberRelationshipSpecialtyStart DateEnd Date Gregorio Garcia [facility]/23Team MemberRelationshipSpecialtyStart DateEnd Date Gregorio Garcia MD [address] [place] [place] [address] PCP - [facility]10/18/23Team MemberRelationshipSpecialtyStart DateEnd Date Gregorio Garcia MD [address] [place] [address] [facility]CP - [facility]10/18/23Team MemberRelationshipSpecialtyStart DateEnd Date Gregorio Garcia MD [address] [place] [place] [address] [facility] - [facility]/23Team MemberRelationshipSpecialtyStart DateEnd Date Gregorio Garcia MD [address] [place] [address] PCP - [facility]10/[facility]/23Team MemberRelationshipSpecialtyStart DateEnd Date Gregorio Garcia MD [address] [place] [place] [address] PCP - [facility]10/18/23 Team Status: Inactive Member Role Status Dates Gregorio Garcia MD Primary Care Provider Active Start: March 01, 2025 End: March 01aliza Voss DOAtttyrese ProviderActiveStart: March 01, 2025 End: March 01, 2025Team MemberRelationshipSpecialtyStart DateEnd Date Katya Cerna DO [address] [place] [address] [facility]/25Team MemberRelationshipSpecialtyStart DateEnd Date Katya Cerna DO [address] [place] [address] [facility] - [facility]/25Team MemberRelationshipSpecialtyStart DateEnd Date Katya Cerna DO [address] [place] [address] PCP - GeneralFamily Medicine03/15/25 Goals (unrecognized section and content) Goals may be documented in a n alternate sectionGoals may be documented in an alternate sectionGoals may be documented in an alternate section Reason for Visit (unrecogniz ed section and content) ReasonCommentsFertility ConsultBreast PainReasonCommentsMiscarriagePt present today to discuss recent miscarriage.ReasonCommentsAmenorrheaReasonComments Routine VisitReasonCommentsNew Patient FOR RECORDS PERTAINING TO PATIENTS WHO ARE [...] BE BASED ON THE PRIMARY CLINICAL RECORDS. [facility] [employer] [facility] provides no warranty or guarantee of the accuracy or completeness of information in this document.
== END 2025-06-22 13:06 | disposition home or self-care (01) ==
LOC: LAB 13:08
PROVIDERS: PCP Family Medicine; Visit Provider Obstetrics & Gynecology
DX: N92.6 Irregular menstruation, unspecified (principal)
CPT/HCPCS: 36415; 84702